=== PATIENT | male | born 1970 | race Caucasian/White ===

== ENCOUNTER 2016-11-04 13:25 | Inpatient (IN) | payer BC ==
--- NOTE | 2016-11-04 16:29 | ED ---
Abdominal Pain HPI - General Chief Complaint: Abdominal Pain Stated Complaint: Bloated, Leg Numbness Time Seen by Provider: 11/04/16 15:45 Source: patient, RN notes reviewed Mode of arrival: wheelchair - History of Present Illness Initial Comments: Patient is a 38-year-old male presents to the emergency room for evaluation of abdominal pain and bloating. Patient states he's been experiencing abdominal bloating for the past 3 days. Patient states the bloating is causing him great discomfort. Patient states bloating is pressing on his chest and he feels short of breath because it. Patient states he had an episode of bloating during [place] time then went away after a few days. Patient stated this time is not going away. Patient states he took a suppository yesterday, thinking he was constipated with no relief of symptoms. Patient states had normal bowel movement yesterday. Patient does state that he drinks about 2 mixed drinks a day for the past year. Patient states he's been taking aspirin without relief of symptoms. Patient denies any abdominal surgeries. Patient denies pain or burning during urination, trouble urinating or blood in urine. Patient denies any history of kidney stones. Patient denies any history of bowel obstructions. Patient denies history of colitis. Patient denies fevers or chills. Patient's did pull me aside and states that patient drinks more than 2 mixed drinks a day. Patient's states that his drinking has gotten out of control and has been worrying her. - Related Data Home Medications Medication Instructions Recorded Confirmed Buprenorphine HCl/Naloxone HCl 2 film SL DAILY 11/04/16 11/04/16 [Suboxone 8 mg-2 mg Sl Film] Cetirizine HCl [Zyrtec] 10 mg PO DAILY 11/04/16 11/04/16 Ibuprofen [Advil] 200 mg PO Q8HR PRN 11/04/16 11/04/16 Allergies Allergy/AdvReac Type Severity Reaction Status Date / Time No Known Allergies Allergy Verified 11/04/16 15:35 Review of Systems ROS Statement: Those systems with pertinent positive or pertinent negative responses have been documented in the HPI. ROS Other: All systems not noted in ROS Statement are negative. Past Medical History Past Medical History: No Reported History History of Any Multi-Drug Resistant Organisms: None Reported Past Surgical History: Back Surgery Additional Past Surgical History / Comment(s): OPEN HEART SURGERY A CHILD FOR A PIECE OF GLASS LODGED IN HIS HEART Past Psychological History: No Psychological Hx Reported Smoking Status: Current every day smoker Past Alcohol Use History: Daily Past Drug Use History: None Reported General Exam - General Exam Comments Initial Comments: Laying in exam room, no acute distress. Limitations: no limitations General appearance: alert, in no apparent distress Head exam: Present: atraumatic, normocephalic, normal inspection Eye exam: Present: normal appearance, PERRL, EOMI Pupils: Present: normal accommodation ENT exam: Present: normal exam Neck exam: Present: normal inspection Respiratory exam: Present: normal lung sounds bilaterally. Absent: respiratory distress Cardiovascular Exam: Present: normal rhythm, tachycardia, normal heart sounds GI/Abdominal exam: Present: distended, tenderness (Mid epigastric and left upper quadrant tenderness), guarding (Voluntary guarding on palpation), normal bowel sounds. Absent: rebound, rigid Extremities exam: Present: normal inspection Back exam: Present: normal inspection Neurological exam: Present: alert, oriented X3, CN II-XII intact Psychiatric exam: Present: normal affect, normal mood Skin exam: Present: warm, dry, intact, normal color. Absent: rash Course Vital Signs 11/04/16 11/04/16 13:27 17:53 Temperature 100 F H 98.4 F Pulse Rate 114 H 102 H Respiratory 22 18 Rate Blood Pressure 131/79 109/71 O2 Sat by Pulse 92 L 94 L Oximetry Medical Decision Making - Medical Decision Making Patient is a 46-year-old male presents emergency room for evaluation of abdominal pain and abdominal distention. Patient's states the patient has been drinking frequently over the past year. Patient noted to have elevated lipase and amylase. Case discussed with Dr. Bond. Dr. Bond discussed case with Dr. Marina who agreed to admit patient. Patient will be [facility] with [facility] protocol. Results and plan discussed with patient and his . - Lab Data Result diagrams: 11/04/16 16:26 11/04/16 16:26 Lab Results 11/04/16 11/04/16 11/04/16 Range/Units 16:26 16:26 16:26 WBC 8.3 (3.8-10.6) k/uL RBC 2.82 L (4.30-5.90) m/uL Hgb 11.0 L (13.0-17.5) gm/dL Hct 33.1 L (39.0-53.0) % MCV 117.3 H (80.0-100.0) fL MCH 38.9 H (25.0-35.0) pg MCHC 33.1 (31.0-37.0) g/dL RDW 14.8 (11.5-15.5) % Plt Count 135 L (150-450) k/uL Neutrophils % 85 % Lymphocytes % 8 % Monocytes % 5 % Eosinophils % 1 % Basophils % 0 % Neutrophils # 7.0 (1.3-7.7) k/uL Lymphocytes # 0.6 L (1.0-4.8) k/uL Monocytes # 0.5 (0-1.0) k/uL Eosinophils # 0.1 (0-0.7) k/uL Basophils # 0.0 (0-0.2) k/uL Manual Slide Review Performed Polychromasia Present Macrocytosis Marked Target Cells Present PT (9.0-12.0) sec INR (<1.1) Sodium 134 L (137-145) mmol/L Potassium 3.8 (3.5-5.1) mmol/L Chloride 94 L (98-107) mmol/L Carbon Dioxide 29 (22-30) mmol/L Anion Gap 11 mmol/L BUN 16 (9-20) mg/dL Creatinine 0.70 (0.66-1.25) mg/dL Est GFR (MDRD) Af Amer >60 (>60 ml/min/1.73 sqM) Est GFR (MDRD) Non-Af >60 (>60 ml/min/1.73 sqM) Glucose 93 (74-99) mg/dL Calcium 8.8 (8.4-10.2) mg/dL Magnesium 1.5 L (1.6-2.3) mg/dL Total Bilirubin 3.4 H (0.2-1.3) mg/dL AST 154 H (17-59) U/L ALT 65 (21-72) U/L Alkaline Phosphatase 221 H (38-126) U/L Total Protein 5.9 L (6.3-8.2) g/dL Albumin 2.8 L (3.5-5.0) g/dL Amylase 195 H (30-110) U/L Lipase 983 H (23-300) U/L Urine Color Dark Brown Urine Appearance Clear (Clear) Urine pH 6.0 (5.0-8.0) Ur Specific [place] 1.018 (1.001-1.035) Urine Protein 1+ H (Negative) Urine Glucose (UA) Negative (Negative) Urine Ketones Trace H (Negative) Urine Blood Negative (Negative) Urine Nitrate Negative (Negative) Urine Bilirubin 1+ H (Negative) Urine Urobilinogen 12.0 (<2.0) mg/dL Ur Leukocyte Esterase Negative (Negative) Urine RBC 1 (0-5) /hpf Urine WBC 3 (0-5) /hpf Ur Squamous Epith Cells <1 (0-4) /hpf Hyaline Casts 79 H (0-2) /lpf Urine Mucus Rare H (None) /hpf Serum Alcohol 13 mg/dL 11/04/16 Range/Units 16:26 WBC (3.8-10.6) k/uL RBC (4.30-5.90) m/uL Hgb (13.0-17.5) gm/dL Hct (39.0-53.0) % MCV (80.0-100.0) fL MCH (25.0-35.0) pg MCHC (31.0-37.0) g/dL RDW (11.5-15.5) % Plt Count (150-450) k/uL Neutrophils % % Lymphocytes % % Monocytes % % Eosinophils % % Basophils % % Neutrophils # (1.3-7.7) k/uL Lymphocytes # (1.0-4.8) k/uL Monocytes # (0-1.0) k/uL Eosinophils # (0-0.7) k/uL Basophils # (0-0.2) k/uL Manual Slide Review Polychromasia Macrocytosis Target Cells PT 11.7 (9.0-12.0) sec INR 1.2 (<1.1) Sodium (137-145) mmol/L Potassium (3.5-5.1) mmol/L Chloride (98-107) mmol/L Carbon Dioxide (22-30) mmol/L Anion Gap mmol/L BUN (9-20) mg/dL Creatinine (0.66-1.25) mg/dL Est GFR (MDRD) Af Amer (>60 ml/min/1.73 sqM) Est GFR (MDRD) Non-Af (>60 ml/min/1.73 sqM) Glucose (74-99) mg/dL Calcium (8.4-10.2) mg/dL Magnesium (1.6-2.3) mg/dL Total Bilirubin (0.2-1.3) mg/dL AST (17-59) U/L ALT (21-72) U/L Alkaline Phosphatase (38-126) U/L Total Protein (6.3-8.2) g/dL Albumin (3.5-5.0) g/dL Amylase (30-110) U/L Lipase (23-300) U/L Urine Color Urine Appearance (Clear) Urine pH (5.0-8.0) Ur Specific [place] (1.001-1.035) Urine Protein (Negative) Urine Glucose (UA) (Negative) Urine Ketones (Negative) Urine Blood (Negative) Urine Nitrate (Negative) Urine Bilirubin (Negative) Urine Urobilinogen (<2.0) mg/dL Ur Leukocyte Esterase (Negative) Urine RBC (0-5) /hpf Urine WBC (0-5) /hpf Ur Squamous Epith Cells (0-4) /hpf Hyaline Casts (0-2) /lpf Urine Mucus (None) /hpf Serum Alcohol mg/dL - Radiology Data Radiology results: report reviewed, image reviewed Disposition Clinical Impression: Pancreatitis Disposition: ADMITTED IP TO THIS [facility] Condition: Stable Decision Date: 11/04/16
[2016-11-04 16:37] LABS: Basophils % (A) 0 %; CHCM 34.2; Eosinophils # (A) 0.1 k/uL (0-0.7); Eosinophils % (A) 1 %; HCT 33.1 % (39.0-53.0); Luc # (Auto) 0.07; Luc % (Auto) 1; Lymphocytes # (A) 0.6 k/uL (1.0-4.8); Lymphocytes % (A) 8 %; MCH 38.9 pg (25.0-35.0); MCHC 33.1 g/dL (31.0-37.0); MCV 117.3 fL (80.0-100.0); Macrocytosis Marked; Mean Platelet Volume 9.1; Monocytes # (A) 0.5 k/uL (0-1.0); Monocytes % (A) 5 %; Neutrophils % (A) 85 %; RBC 2.82 m/uL (4.30-5.90); RDW 14.8 % (11.5-15.5); WBC 8.3 k/uL (3.8-10.6); WBC (Perox) 8.35
--- NOTE | 2016-11-04 16:46 | XR ---
EXAMINATION TYPE: XR KUB DATE OF EXAM: 11/04/2016 4:36 PM COMPARISON: NONE HISTORY: 46-year-old male abdominal distention and pain FINDINGS: No evidence for free intraperitoneal air. Some colonic and small bowel air fluid levels are noted in the upper abdomen. Prominent air within th e transverse colon. No dilated small bowel loops are seen. Paucity of distal colonic gas. No signific ant stool burden. IMPRESSION: A number of upper abdominal small bowel air-fluid levels without abnormal dilatation. There is some a ir within the colon but paucity of distal colonic gas. Overall gas pattern is nonspecific at this lynne e and could reflect an enteritis, generalized ileus, or early obstruction. Radiographic follow-up rec ommended.
[2016-11-04 16:49] LABS: Appearance,Urine Clear (Clear); Bilirubin,Urine 1+ (Negative); Glucose,Urine (UA) Negative (Negative); Ketones,Urine Trace (Negative); Leukocyte Esterase,Urine Negative (Negative); Mucus,Urine Rare /hpf; Nitrite,Urine Negative (Negative); Particle Count 7221; Protein,Urine 1+ (Negative); RBC,Urine 1 /hpf (0-5); Specific Gravity,Urine 1.018 (1.001-1.035); Squamous Epithelial Cell,Urine <1 /hpf (0-4); UA Billing (MACRO vs. MICRO) MICRO; WBC,Urine 3 /hpf (0-5)
[2016-11-04 16:54] LABS: ALT 65 U/L (21-72); AST 154 U/L (17-59); Alcohol 13 mg/dL; Alkaline Phosphatase 221 U/L (38-126); Amylase 195 U/L (30-110); Anion Gap 11 mmol/L; Blood Urea Nitrogen 16 mg/dL (9-20); Calcium 8.8 mg/dL (8.4-10.2); Carbon Dioxide 29 mmol/L (22-30); Chloride 94 mmol/L (98-107); Glucose 93 mg/dL (74-99); Magnesium 1.5 mg/dL (1.6-2.3); Non-African American GFR(MDRD) >60 (>60 ml/min/1.73 sqM); Potassium 3.8 mmol/L (3.5-5.1); Sodium 134 mmol/L (137-145); Total Bilirubin 3.4 mg/dL (0.2-1.3); Total Protein 5.9 g/dL (6.3-8.2)
[2016-11-04 17:14] LABS: Manual Review Performed; Polychromasia Present
[2016-11-04 17:15] LABS: Target Cells Present
[2016-11-04] MEDS ORDERED: NALOXONE 0.4 MG/ML 1 ML VIAL IV PRN (17:40)
[2016-11-04] MEDS ORDERED: ONDANSETRON 4 MG/2 ML VIAL IVP PRN (17:40)
[2016-11-04] MEDS ORDERED: LORazepam 2 MG/ML SYRINGE IV PRN ×2 (17:44)
[2016-11-04] MEDS ORDERED: THIAMINE 100 MG/ML 2 ML VIAL IM STA (17:44)
[2016-11-04] MEDS ORDERED: SODIUM CHLORIDE 0.9% 1,000 ML IV SCH (17:45)
[2016-11-04] MEDS ORDERED: ACETAMINOPHEN IV (For NPO) 1,000 MG in EMPTY BAG 1 BAG IVPB STA (17:50)
[2016-11-04 19:01] VITALS: BMI 29.0
[2016-11-04] MEDS ORDERED: IBUPROFEN 200 MG TAB PO PRN (19:18)
[2016-11-04] MEDS: NICOTINE 21MG/24HR PATCH TRANSDERM SCH (19:49)
[2016-11-04 20:05] LABS: INR 1.2 (<1.1); Prothrombin Time 11.7 sec (9.0-12.0)
--- NOTE | 2016-11-04 20:25 | XR ---
EXAMINATION TYPE: XR chest 2V DATE OF EXAM: 11/04/2016 8:07 PM COMPARISON: NONE HISTORY: Short of breath TECHNIQUE: Frontal and lateral views of the chest are obtained. FINDINGS: There is mild patchy linear density at the right lung base. The other lung hameed are kristy r. Heart and mediastinum are normal. There are no hilar masses. There is slight blunting of the right posterior costophrenic angle. IMPRESSION: Patchy atelectasis at the right lung base. Small pleural effusions. No heart failure.
[2016-11-04 21:00] LABS: Bilirubin, Delta 1.9 mg/dL (0.0-0.2); Total Bilirubin 3.4 mg/dL (0.2-1.3); Total Protein 5.9 g/dL (6.3-8.2)
[2016-11-04] MEDS: traMADol 50 MG TAB PO SCH (21:09)
[2016-11-04] MEDS: DOCUSATE 100 MG CAP PO SCH (21:09)
[2016-11-04] MEDS: SODIUM CHLORIDE 0.9% 1,000 ML IV SCH (21:11)
[2016-11-05] MEDS ORDERED: BUPRENORPHINE HCL SL SCH (09:00)
[2016-11-05] MEDS ORDERED: ACETAMINOPHEN IV (For NPO) 1,000 MG in EMPTY BAG 1 BAG IVPB SCH (09:00)
[2016-11-05] MEDS ORDERED: NALOXONE HCL SL SCH (09:00)
[2016-11-05] MEDS: DOCUSATE 100 MG CAP PO SCH ×2 (09:08→20:15)
[2016-11-05] MEDS: traMADol 50 MG TAB PO SCH (09:09)
[2016-11-05] MEDS: NICOTINE 21MG/24HR PATCH TRANSDERM SCH (09:09)
[2016-11-05] MEDS: LORATADINE 10 MG TAB PO SCH (09:09)
[2016-11-05] MEDS: PANTOPRAZOLE 40 MG TABLET PO SCH (09:09)
[2016-11-05] MEDS: SODIUM CHLORIDE 0.9% 1,000 ML IV SCH (09:09)
--- NOTE | 2016-11-05 09:25 | US ---
EXAMINATION TYPE: US abdomen limited DATE OF EXAM: 11/05/2016 7:42 AM COMPARISON: NONE CLINICAL HISTORY: poss. Paracentesis marking. ABd distention TECHNOLOGIST IMPRESSION: Moderate amount of free fluid seen within all four quadrants Limited abdomen ultrasound shows ascites which is moderate. IMPRESSION: Moderate ascites
[2016-11-05 09:30] LABS: Basophils % (A) 0 %; CH 39.6; CHCM 32.9; Eosinophils % (A) 0 %; HCT 32.5 % (39.0-53.0); HDW 1.76; HGB 10.3 gm/dL (13.0-17.5); Luc # (Auto) 0.07; Luc % (Auto) 1; Lymphocytes # (A) 0.4 k/uL (1.0-4.8); Lymphocytes % (A) 5 %; MCH 38.2 pg (25.0-35.0); MCHC 31.7 g/dL (31.0-37.0); MCV 120.7 fL (80.0-100.0); Macrocytosis Marked; Mean Platelet Volume 9.1; Monocytes # (A) 0.4 k/uL (0-1.0); Monocytes % (A) 4 %; Neutrophils # (A) 8.5 k/uL (1.3-7.7); Neutrophils % (A) 91 %; RBC 2.69 m/uL (4.30-5.90); RDW 15.3 % (11.5-15.5); WBC 9.4 k/uL (3.8-10.6); WBC (Perox) 10.02
--- NOTE | 2016-11-05 09:34 | P.CONS ---
History of Present Illness - Reason for Consult Consult date: 11/05/16 ascites pancreatitis Requesting physician: Lv Marina - History of Present Illness 46-year-old male admitted with abdominal pain bloatedness last month but exacerbated over the last days with elevated liver and pancreatic enzymes. Drinks alcohol on a daily basis x 18 months. Denies hematemesis, hematochezia, melena, fever, or chills. Urine more dark over the last few days no changes in the color of his stool. No history of hepatitis or pancreatitis. White count 8.3. Hemoglobin 11.0. MCV 117. Platelet 135. INR 1.2. BUN 16. Creatinine 0.7. Total bilirubin 3.4. Unconjugated 1.3. Conjugated 0.2. AST 154. ALT 70. Alk phos 211. Lipase 93. Amylase 195. Serum alcohol 13. Abdomen ultrasound pending at time of dictation. Review of Systems Constitutional: Denies fever, chills, sweats, weight gain, or loss. HEENT: Negative for migraines, blurred vision or loss, earaches, drainage, tinnitus, oral mucosal lesions, dysphagia, or odynophagia. Cardiac: Open-heart surgery as a child secondary to trauma Negative for chest pain, arrhythmias, or palpitation. Respiratory: Nicotine cigarette dependency. Negative for shortness of breath, hemoptysis, cough, or sputum production. Gastrointestinal: See HPI for pertinent findings. Genitourinary: Negative for hematuria, urgency, frequency, polyuria, dysuria, or penile discharge. Musculoskeletal: Negative for muscle aches, swelling, arthritis, and arthralgias. Neurologic: Negative for stroke or TIA. Endocrine: Negative for thyroid problems. Skin: Negative for rash or itching. Psychiatric: Negative history for depression and anxiety All systems: negative (See HPI) Past Medical History Past Medical History: No Reported History History of Any Multi-Drug Resistant Organisms: None Reported Past Surgical History: Back Surgery Additional Past Surgical History / Comment(s): OPEN HEART SURGERY A CHILD FOR A PIECE OF GLASS LODGED IN HIS HEART Past Psychological History: No Psychological Hx Reported Smoking Status: Current every day smoker Past Alcohol Use History: Daily Past Drug Use History: None Reported Medications and Allergies Home Medications Medication Instructions Recorded Confirmed Type Buprenorphine HCl/Naloxone HCl 2 film SL DAILY 11/04/16 11/04/16 History [Suboxone 8 mg-2 mg Sl Film] Cetirizine HCl [Zyrtec] 10 mg PO DAILY 11/04/16 11/04/16 History Ibuprofen [Advil] 200 mg PO Q8HR PRN 11/04/16 11/04/16 History Allergies Allergy/AdvReac Type Severity Reaction Status Date / Time No Known Allergies Allergy Verified 11/04/16 15:35 Physical Exam Vitals: Vital Signs Temp Pulse Resp BP Pulse Ox 11/05/16 07:00 97.9 F 84 17 93/68 97 11/04/16 23:00 97.8 F 91 18 98/68 91 L 11/04/16 19:43 92 19 11/04/16 18:42 99.2 F 92 19 127/83 94 L Intake and Output 11/04/16 11/05/16 11/05/16 22:59 06:59 14:59 Intake Total 0 Output Total 200 200 Balance -200 -200 Intake: Oral 0 Output: Urine 200 200 Other: Voiding Method Urinal Weight 111.13 kg General appearance: The patient is alert, oriented, in no acute distress. Jaundice. HET: Head is normocephalic and atraumatic. Pupils are equal and reactive. Scleral icterus. Oropharynx is clear without lesions. Neck: Supple without lymphadenopathy. Trachea midline. Heart: S1 S2. Regular rate and rhythm. Lungs: No crackles or wheezes are heard. Abdomen: Soft, distended with ascites tense, with bowel sounds. No peritoneal signs. No palpable organomegaly or masses. Extremities: Normal skin color and turgor. No cyanosis, rash, ulceration, clubbing, or edema. Radial and pedal pulses are 2/4 bilaterally. Neurological: No focal deficits. Strength and sensation are grossly intact. Results CBC & Chem 7: 11/06/16 08:52 11/06/16 08:52 US - abdomen: pending Assessment and Plan (1) Acute alcoholic pancreatitis Status: Acute (2) Ascites Status: Acute (3) Thrombocytopenia Status: Acute (4) Macrocytosis Status: Acute (5) Anemia Narrative/Plan: Without overt bleeding Status: Acute (6) Jaundice due to hepatitis Status: Acute Plan: 1. Alcohol abstinence advised. Repeat liver chemistries, amylase, lipase. 2. Hepatitis panel. AFP level. Ammonia. We'll review ultrasound. We'll proceed with therapeutic diagnostic paracentesis for evaluation of portal hypertension. 3. Will follow with you. Clear liquids and advance to Low-salt diet as tolerated. Thank you for this kind referral and the opportunity to participate in the care of your patient. This consultation was discussed with Dr. Boo. The impression and plan of care have been directed as dictated.
[2016-11-05 09:40] LABS: Blood Urea Nitrogen 17 mg/dL (9-20); Calcium 8.2 mg/dL (8.4-10.2); Carbon Dioxide 30 mmol/L (22-30); Non-African American GFR(MDRD) >60 (>60 ml/min/1.73 sqM); Potassium 3.6 mmol/L (3.5-5.1); Sodium 133 mmol/L (137-145)
[2016-11-05 09:55] LABS: Anion Gap 10 mmol/L; Chloride 93 mmol/L (98-107); Glucose 91 mg/dL (74-99)
[2016-11-05 09:57] LABS: ALT 85 U/L (21-72); Blood Urea Nitrogen 17 mg/dL (9-20); Carbon Dioxide 31 mmol/L (22-30); Chloride 94 mmol/L (98-107); Non-African American GFR(MDRD) >60 (>60 ml/min/1.73 sqM); Potassium 3.8 mmol/L (3.5-5.1); Total Bilirubin 3.6 mg/dL (0.2-1.3)
[2016-11-05 10:01] LABS: Hepatitis B Surface Ag Index 0.07
[2016-11-05 10:07] LABS: Hepatitis B Core IgM Index 0.03
[2016-11-05 10:19] LABS: Hepatitis C Virus IgG Index 0.14
[2016-11-05 10:33] LABS: AST 253 U/L (17-59); Alkaline Phosphatase 199 U/L (38-126); Amylase 119 U/L (30-110); Anion Gap 8 mmol/L; Calcium 8.2 mg/dL (8.4-10.2); Glucose 93 mg/dL (74-99); Sodium 133 mmol/L (137-145); Total Protein 5.3 g/dL (6.3-8.2)
[2016-11-05 10:37] LABS: Hepatitis C Virus IgG Ab Negative (Negative)
[2016-11-05 10:49] LABS: Manual Review Performed
[2016-11-05 10:50] LABS: Toxic Granulation Present
[2016-11-05 12:32] LABS: INR 1.4 (<1.1); Prothrombin Time 13.3 sec (9.0-12.0)
--- NOTE | 2016-11-05 14:03 | US ---
EXAMINATION TYPE: US paracentesis abd w/image DATE OF EXAM: 11/05/2016 1:56 PM CLINICAL HISTORY: Ascites The procedure was discussed with the patient. The risks, complications, benefits, and alternatives we re discussed and any questions were answered. Informed consent was obtained. The patient was placed s upine on the ultrasound table and prepped and draped in the usual sterile fashion. All elements of maximal barrier technique were utilized. Under ultrasound guidance, access into the right lower quadrant was obtained, via the paracentesis catheter system and direct ultrasound guidanc e. Approximately 8.1 liters of straw-colored fluid was removed. The patient was stable throughout the pr ocedure and remained stable upon discharge from Department of Radiology. Sample sent to pathology. IMPRESSION: Successful therapeutic and diagnostic paracentesis under ultrasound guidance.
[2016-11-05] MEDS: THIAMINE 100 MG TAB PO SCH ×2 (14:29→16:49)
[2016-11-05] MEDS: FOLIC ACID 1 MG TAB PO SCH (14:30)
[2016-11-05] MEDS: LORazepam 2 MG/ML SYRINGE IV PRN (14:30)
[2016-11-05] MEDS ORDERED: MORPHINE SULFATE 4 MG/ML SYRINGE IVP PRN (15:00)
[2016-11-05 16:50] LABS: RBC, Body Fluid 25 /uL
[2016-11-05] MEDS: SUBOXONE FILM SUBLINGUAL SCH (17:15)
--- NOTE | 2016-11-05 22:58 | HP ---
Patient is a 46-year-old who came in with abdominal ascites and patient developed increasing abdominal bloating and patient was found to have ascites and removed about 6.5 L. Patient was also complaining of epigastric abdominal pain. Patient has minimally elevated lipase of 900. Patient was on treatment for pancreatitis. Patient was able to tolerate diet today. Patient was complaining of nausea, vomiting when he came in. Patient's epigastric abdominal pain improved. I mostly believe the patient has an alcoholic gastritis. Patient does drink alcohol on a daily basis, about 2 shots of whiskey along with 3 beers a day. Patient denied any melena, hematochezia. Patient's abdominal pain is not consistent with peritonitis and paracentesis labs are still pending at this point of time. Patient does have elevated MCV and acute alcoholic hepatitis consistent with elevated AST and ALT with AST and ALT ratio being at least 1. REVIEW OF SYSTEMS: CONSTITUTIONAL: No fever, no malaise, no fatigue. HEENT: No recent visual problems or hearing problems. Denied any sore throat. CARDIOVASCULAR: No chest pain, orthopnea, PND, no palpitations, no syncope. PULMONARY: No shortness of breath, no cough, no hemoptysis. GASTROINTESTINAL: As described in HPI. NEUROLOGICAL: No headaches, no weakness, no numbness. HEMATOLOGICAL: Denies any bleeding or petechiae. GENITOURINARY: Denies any burning micturition, frequency, or urgency. MUSCULOSKELETAL/RHEUMATOLOGICAL: Denies any joint pain, swelling, or any muscle pain. ENDOCRINE: Denies any polyuria or polydipsia. The rest of the 14 point review of systems is negative. PAST MEDICAL HISTORY: Patient never saw a doctor, did not report any previous history except for back surgery and chronic low back pain. Patient does smoke a pack per day. Alcohol abuse as mentioned above. Denied any drug abuse. Hepatitis panel is essentially negative. FAMILY HISTORY: Denied any family history of hypertension, diabetes mellitus. Home medications include: 1. ( ). 2. Naloxone. 3. Cetirizine and 4. Ibuprofen. ALLERGIES: No known drug allergies. PHYSICAL EXAMINATION: VITAL SIGNS: Temperature 97.3, pulse of 76, respiratory rate of 14, blood pressure is 193/68, saturating at 97% on room air. GENERAL: The patient is alert and oriented x3, not in any acute distress. Well developed, well nourished. HEENT: Pupils are round and equally reacting to light. EOMI. No scleral icterus. No conjunctival pallor. Normocephalic, atraumatic. No pharyngeal erythema. No thyromegaly. CARDIOVASCULAR: S1 and S2 present. No murmurs, rubs, or gallops. PULMONARY: Chest is clear to auscultation, no wheezing or crackles. ABDOMEN: Patient does have caput medusae consistent with cirrhosis. I did not see any significant palmar erythema or spider nevi. Evaluated patient after paracentesis with 6.5 L of fluid removal. Patient still has shifting dullness. No fluid thrill was appreciated. ( ). No abdominal tenderness at this point of time. MUSCULOSKELETAL: No joint swelling or deformity. EXTREMITIES: No cyanosis, clubbing, or pedal edema. NEUROLOGICAL: Gross neurological examination did not reveal any focal deficits. SKIN: No rashes. LABORATORY DATA: CBC and comprehensive metabolic profile are significant for anemia secondary to alcohol use and bone marrow suppression. Hemoglobin of 10.9 and MCV is elevated to 120.7 secondary to cirrhosis as well as alcohol abuse. INR is 1.4. Sodium is 133. AST is 253 now, ALT is 85, because of which IV Tylenol will be discontinued. Alkaline phosphatase is 199. Lipase is 389 now. When he came in, it was 983. UA: 1+ bilirubin. No other significant abnormality was appreciated. Ascitic fluid labs are pending. Hepatitis panel is negative. Serum alcohol level was 13. abdominal ultrasound was reviewed and other imaging data was reviewed. ASSESSMENT AND PLAN: 1. Ascites secondary to alcoholic cirrhosis. Patient probable has alcoholic cirrhosis and patient had a therapeutic paracentesis. My suspicion is low for peritonitis. 2. Possibility of alcoholic pancreatitis. Patient mostly has alcoholic gastritis and it caused ( ) elevation of lipase, anyway. Patient is on Protonix at this point of time. 3. Pancytopenia along with thrombocytopenia secondary to splenic sequestration and elevated MCV and anemia secondary to bone marrow suppression from chronic alcohol abuse. 4. Acute alcoholic hepatitis. Tylenol IV was discontinued. Patient cannot take tramadol. Either, as there is a concern for alcohol withdrawal. 5. Alcohol abuse. 6. Alcohol withdrawal. 7. Hyponatremia. Appears to have hypovolemic hyponatremia from cirrhosis and ascites. 8. Nicotine abuse. 9. Extensive counseling was provided regarding alcohol abuse. 10. Ammonia is still pending and alpha-fetoprotein level. 11. Chronic low back pain. We can only use Suboxone at this point of time. As patient is on Suboxone, I cannot use any other opiates and patient cannot use NSAIDs because of alcoholic gastritis and we cannot use tramadol because of the concern for alcohol withdrawal seizures.
[2016-11-06] MEDS: LORazepam 2 MG/ML SYRINGE IV PRN (01:16)
[2016-11-06 01:22] VITALS: TEMP 97.8
[2016-11-06] MEDS: PANTOPRAZOLE 40 MG TABLET PO SCH (07:47)
[2016-11-06] MEDS: LORATADINE 10 MG TAB PO SCH (07:47)
[2016-11-06] MEDS: DOCUSATE 100 MG CAP PO SCH (07:47)
[2016-11-06] MEDS: NICOTINE 21MG/24HR PATCH TRANSDERM SCH (07:47)
[2016-11-06] MEDS: SUBOXONE FILM SUBLINGUAL SCH (08:42)
[2016-11-06 09:11] LABS: CH 39.4; CHCM 32.6; HCT 33.3 % (39.0-53.0); HGB 10.8 gm/dL (13.0-17.5); MCH 39.3 pg (25.0-35.0); MCHC 32.4 g/dL (31.0-37.0); MCV 121.4 fL (80.0-100.0); Macrocytosis Marked; Mean Platelet Volume 8.6; RBC 2.74 m/uL (4.30-5.90); RDW 15.3 % (11.5-15.5); WBC 6.7 k/uL (3.8-10.6)
[2016-11-06 09:31] LABS: ALT 74 U/L (21-72); AST 159 U/L (17-59); Alkaline Phosphatase 166 U/L (38-126); Anion Gap 8 mmol/L; Blood Urea Nitrogen 17 mg/dL (9-20); Carbon Dioxide 30 mmol/L (22-30); Chloride 96 mmol/L (98-107); Glucose 96 mg/dL (74-99); Non-African American GFR(MDRD) >60 (>60 ml/min/1.73 sqM); Potassium 3.2 mmol/L (3.5-5.1); Sodium 134 mmol/L (137-145); Total Bilirubin 2.8 mg/dL (0.2-1.3); Total Protein 4.9 g/dL (6.3-8.2)
[2016-11-06 09:41] VITALS: BP 118/80; PULSE 102; RESP 19
--- NOTE | 2016-11-06 10:08 | P.PN ---
Subjective Principal diagnosis: Alcohol hepatitis pancreatitis new-onset ascites 46-year-old male with a history of alcoholism admitted with acute alcohol hepatitis and new onset of ascites. Status post paracentesis with a 0.1 L removal. Feels better. Afebrile. Liver enzymes improving. Pancreatic enzymes improved yesterday. Tolerating clear liquids. Objective - Vital Signs Vital signs: Vital Signs Temp 97.8 F 11/06/16 09:39 Pulse 102 H 11/06/16 09:39 Resp 19 11/06/16 09:39 BP 118/80 11/06/16 09:39 Pulse Ox 94 L 11/06/16 09:39 Intake & Output 11/05/16 11/06/16 11/06/16 18:59 06:59 18:59 Other: Voiding Method Urinal Toilet Toilet # Voids 1 1 - Exam General appearance: The patient is alert, oriented, in no acute distress. Jaundice. HET: Head is normocephalic and atraumatic. Pupils are equal and reactive. Scleral icterus. Oropharynx is clear without lesions. Neck: Supple without lymphadenopathy. Trachea midline. Heart: S1 S2. Regular rate and rhythm. Lungs: No crackles or wheezes are heard. Abdomen: Soft, distended with mild ascites, with bowel sounds. No peritoneal signs. No palpable organomegaly or masses. Extremities: Normal skin color and turgor. No cyanosis, rash, ulceration, clubbing, or edema. Radial and pedal pulses are 2/4 bilaterally. Neurological: No focal deficits. Strength and sensation are grossly intact. - Labs CBC & Chem 7: 11/06/16 08:52 11/06/16 08:52 Labs: Abnormal Lab Results - Last 24 Hours (Table) 11/05/16 11/05/16 11/05/16 Range/Units 08:45 08:45 09:31 RBC 2.69 L (4.30-5.90) m/uL Hgb 10.3 L (13.0-17.5) gm/dL Hct 32.5 L (39.0-53.0) % MCV 120.7 H (80.0-100.0) fL MCH 38.2 H (25.0-35.0) pg Plt Count 111 L (150-450) k/uL Neutrophils # 8.5 H (1.3-7.7) k/uL Lymphocytes # 0.4 L (1.0-4.8) k/uL PT (9.0-12.0) sec Sodium 133 L 133 L (137-145) mmol/L Potassium (3.5-5.1) mmol/L Chloride 93 L 94 L (98-107) mmol/L Carbon Dioxide 31 H (22-30) mmol/L Calcium 8.2 L 8.2 L (8.4-10.2) mg/dL Total Bilirubin 3.6 H (0.2-1.3) mg/dL AST 253 H (17-59) U/L ALT 85 H (21-72) U/L Alkaline Phosphatase 199 H (38-126) U/L Total Protein 5.3 L (6.3-8.2) g/dL Albumin 2.4 L (3.5-5.0) g/dL Amylase 119 H (30-110) U/L Lipase 389 H (23-300) U/L 11/05/16 11/06/16 11/06/16 Range/Units 11:39 08:52 08:52 RBC 2.74 L (4.30-5.90) m/uL Hgb 10.8 L (13.0-17.5) gm/dL Hct 33.3 L (39.0-53.0) % MCV 121.4 H (80.0-100.0) fL MCH 39.3 H (25.0-35.0) pg Plt Count 110 L (150-450) k/uL Neutrophils # (1.3-7.7) k/uL Lymphocytes # (1.0-4.8) k/uL PT 13.3 H (9.0-12.0) sec Sodium 134 L (137-145) mmol/L Potassium 3.2 L (3.5-5.1) mmol/L Chloride 96 L (98-107) mmol/L Carbon Dioxide (22-30) mmol/L Calcium 8.0 L (8.4-10.2) mg/dL Total Bilirubin 2.8 H (0.2-1.3) mg/dL AST 159 H (17-59) U/L ALT 74 H (21-72) U/L Alkaline Phosphatase 166 H (38-126) U/L Total Protein 4.9 L (6.3-8.2) g/dL Albumin 2.2 L (3.5-5.0) g/dL Amylase (30-110) U/L Lipase (23-300) U/L Microbiology - Last 24 Hours (Table) 11/05/16 12:59 Gram Stain - Preliminary Ascites Fluid Body Fluid Culture - Preliminary 11/05/16 12:59 Anaerobic Culture - Preliminary Ascites Fluid Assessment and Plan (1) Acute alcoholic pancreatitis Status: Acute (2) Ascites Status: Acute (3) Thrombocytopenia Status: Acute (4) Macrocytosis Status: Acute (5) Anemia Narrative/Plan: Without overt bleeding Status: Acute (6) Jaundice due to hepatitis Status: Acute Plan: 1. Alcohol abstinence advised. 2. Hepatitis panel and Ammonia level reviewed. AFP pending. Start diuretics Lasix 40 mg daily. Aldactone 100 mg daily. 3. Will follow with you. Assessment and plan a care discussed with Dr. Boo.
[2016-11-06] MEDS ORDERED: SPIRONOLACTONE 25 MG TAB PO SCH (10:15)
[2016-11-06] MEDS ORDERED: Potassium Replacement Protocol 1 EACH MISC MISCELLANE PRN (10:47)
[2016-11-06] MEDS ORDERED: FUROSEMIDE 40 MG TAB PO SCH (11:00)
[2016-11-06] MEDS: THIAMINE 100 MG TAB PO SCH (11:08)
[2016-11-06] MEDS: FOLIC ACID 1 MG TAB PO SCH (11:08)
--- NOTE | 2016-11-06 11:30 | CDI ---
In responding to this query, please exercise your independent professional judgment. The [facility] Coding Staff and Clinical Documentation Specialists appreciate your assistance in clarifying documentation, maintaining compliance with coding guidelines, accurately documenting patients condition and capturing severity of illness. The fact that a question is asked does not imply that any particular answer is desired or expected. Communication forms are a method of clarifying documentation and are not made part of the Legal Health Record. Thank you in advance for your clarification. Last Revision, December 2015 Nicolas Winston [address] [facility] [place] [address] Documentation Clarification Form Date: 11/06/2016 11:06:00 AM From: Robert Pike, RN, BSN, CDI Phone: Admit Date: 11/04/2016 6:08:00 PM Patient Name: Christian Gayle Visit Number: [id number] Dr. Lv Marina: Chronic low back pain is documented in the H&P. Patient history/risk factors: 46 yo male with history of chronic low back pain secondary to back surgery. He presents on Suboxone. He has a history of ETOH abuse and is a pack a day smoker Clinical Indicators: Per H&P documentation, "as patient is on Suboxone, I cannot use any other opiates and patient cannot use NSAIDS because of alcoholic gastritis, cannot use Tramadol because of the concern for alcohol WD seizures. Medication: continuation of Suboxone In order to capture the severity of condition, if possible and in your professional opinion, please clarify the following: Abused Substance and specify type of known: Opiods/narcotics Nicotine Alcohol Other, please specify Unable to determine Type of Substance Disorder: Abuse Dependence Use Unknown Please document in your progress notes and discharge summary in order to capture severity of illness and risk of mortality. Include clinical findings that support your diagnosis. FYI: Press F11 to launch patient chart Place X here if this finding has no clinical significance, is not applicable or if you are not able to provide any additional documentation. MTDD
[2016-11-06] MEDS ORDERED: Magnesium Replacement Protocol 1 EACH MISC MISCELLANE PRN (11:35)
[2016-11-06] MEDS: POTASSIUM CHLORIDE ER 20 MEQ TAB.ER PO SCH ×3 (11:56→14:10)
[2016-11-06] MEDS: MAGNESIUM SULFATE-D5W PMX 1 GM in DEXTROSE/WATER 1 100ML.BAG IVPB SCH ×3 (11:56→14:10)
--- NOTE | 2016-11-06 15:42 | P.DS ---
Providers Date of admission: 11/04/16 18:08 Expected date of discharge: 11/06/16 Attending physician: Lv Alfred. Consults: 11/04/16 19:14 Consult Physician Urgent Consulting Provider: David Boo Consult Reason/Comments: ascites? Do you want consulting provider notified?: Yes Primary care physician: Alexander Randhawa [facility] Course: Final Diagnoses: 1. [New-onset ascites secondary to alcoholic cirrhosis, status post therapeutic , diagnostic paracentesis]. 2. [Acute alcoholic pancreatitis, mostly presenting with alcoholic gastritis]. 3. [Acute Pancytopenia with thrombocytopenia secondary to splenic sequestration, elevated MCV, anemia secondary to bone marrow suppression related to chronic alcohol abuse]. 4. [Acute alcoholic hepatitis]. 5. [Alcohol abuse]. 6. [Alcohol withdrawal]. 7. [Hyponatremia, hypovolemic secondary to cirrhosis and ascites 8. Nicotine abuse 9. Chronic low back pain in a patient on Suboxone]. Type of substance disorder , type of abused substance unknown. Hospital course : This is a 46-year-old gentleman admitted with abdominal pain, new onset ascites, acute alcoholic hepatitis and multiple other medical issues in a patient with daily alcohol abuse. Minimally elevated lipase of 900, elevated MCV, elevated AST, ALT on admission, improved. Abdominal ultrasound reported moderate ascites. Evaluated by GI and underwent paracentesis with 8.1 L of straw-colored fluid removed. Cytology pending. Lasix and Aldactone initiated. Cleared by GI for discharge. Patient being discharged home in a stable condition with guarded prognosis. Patient Condition at Discharge: Stable Plan - Discharge Summary New Discharge Prescriptions: Folic Acid 1 mg PO DAILY@1200 #30 tab Furosemide [Lasix] 40 mg PO DAILY #30 tablet Nicotine 21Mg/24Hr Patch [Habitrol] 1 patch TRANSDERM DAILY #30 patch Pantoprazole [Protonix] 40 mg PO AC-BRKFST #30 tablet. Spironolactone [Aldactone] 100 mg PO DAILY #30 tab Thiamine [Vitamin B-1] 100 mg PO DAILY #30 tab Discharge Medication List Buprenorphine HCl/Naloxone HCl [Suboxone 8 mg-2 mg Sl Film] 2 film SL DAILY [History] Cetirizine HCl [Zyrtec] 10 mg PO DAILY 11/04/16 [History] Folic Acid 1 mg PO DAILY@1200 #30 tab 11/06/16 [Rx] Furosemide [Lasix] 40 mg PO DAILY #30 tablet 11/06/16 [Rx] Nicotine 21Mg/24Hr Patch [Habitrol] 1 patch TRANSDERM DAILY #30 patch 11/06/16 [ Rx] Pantoprazole [Protonix] 40 mg PO AC-BRKFST #30 tablet. 11/06/16 [Rx] Spironolactone [Aldactone] 100 mg PO DAILY #30 tab 11/06/16 [Rx] Thiamine [Vitamin B-1] 100 mg PO DAILY #30 tab 11/06/16 [Rx] Follow up Appointment(s)/Referral(s): David Boo MD [STAFF PHYSICIAN] - 2 Weeks Alexander Randhawa MD [Primary Care Provider] - 3 Days Ambulatory/Diagnostic Orders: Complete Blood Count w/diff [LAB.AMB] Time Frame: 3 Days, Location: Determined By Patient Patient Instructions/Handouts: How to Stop Smoking (DC), Abuse of Alcohol (DC) Activity/Diet/Wound Care/Special Instructions: Diet low-sodium, 2000 mg per day, low fat Activity: Limited until follow up No EtOH, no smoking Final ascites culture results to Dr. Boo and PCP.
== END 2016-11-06 16:20 | disposition home or self-care (01) | DRG 432 ==
LOC: EC 13:25 → 4MS4W 18:08
PROVIDERS: ADMIT Internal Medicine; ATTEND Internal Medicine
PROC: 0W9G3ZX Drainage of Peritoneal Cavity, Percutaneous Approach, Diagnostic (ICD-10-PCS; principal; 2016-11-05)
DX: K70.31 Alcoholic cirrhosis of liver with ascites (principal); K85.20 Alcohol induced acute pancreatitis without necrosis or infection; D61.818 Other pancytopenia; E87.1 Hypo-osmolality and hyponatremia; F10.239 Alcohol dependence with withdrawal, unspecified; E86.1 Hypovolemia; D69.59 Other secondary thrombocytopenia; D75.89 Other specified diseases of blood and blood-forming organs; F17.200 Nicotine dependence, unspecified, uncomplicated; G89.29 Other chronic pain; K29.20 Alcoholic gastritis without bleeding; K70.10 Alcoholic hepatitis without ascites; M54.5 Low back pain
CPT/HCPCS: 36415; 49083; 71020; 74000; 76705; 80048; 80053; 80074; 80076; 80320; 81001; 82042; 82105; 82140; 82150; 82945; 83690; 83735; 84157; 85025; 85027; 85610; 87070; 87075; 87205; 88108; 88305; 89050; 96361; 96372; 96374; 99285

== ENCOUNTER 2016-11-28 08:44 | Day surgery (SDC) | payer BC ==
[2016-11-28 09:04] VITALS: RESP 16; TEMP 98.4
[2016-11-28] MEDS ORDERED: SODIUM BICARB 4% 5 ML VIAL (0.48 MEQ/ML) MISCELLANE PRN (09:06)
[2016-11-28 09:35] LABS: Mean Platelet Volume 8.8
[2016-11-28 09:46] LABS: INR 1.2 (<1.1); Prothrombin Time 11.9 sec (9.0-12.0)
[2016-11-28] MEDS: ALBUMIN HUMAN 25% 50 ML in EMPTY BAG 1 BAG IVPB SCH ×3 (11:07→11:31)
[2016-11-28] MEDS ORDERED: ALBUMIN HUMAN 25% 50 ML in EMPTY BAG 1 BAG IVPB ONE (11:30)
--- NOTE | 2016-11-28 12:18 | US ---
EXAMINATION TYPE: US paracentesis abd w/image DATE OF EXAM: 11/28/2016 12:15 PM CLINICAL HISTORY: Ascites The procedure was discussed with the patient. The risks, complications, benefits, and alternatives we re discussed and any questions were answered. Informed consent was obtained. The patient was placed s upine on the ultrasound table and prepped and draped in the usual sterile fashion. All elements of maximal barrier technique were utilized. Under ultrasound guidance, access into the right lower quadrant was obtained, via the paracentesis catheter system and direct ultrasound guidanc e. Approximately 10.5 liters of straw-colored fluid was removed. The patient was stable throughout the p rocedure and remained stable upon discharge from Department of Radiology. IMPRESSION: Successful therapeutic paracentesis under ultrasound guidance.
[2016-11-28 12:51] VITALS: BP 113/74; PULSE 86
== END 2016-11-28 12:10 | disposition home or self-care (01) ==
LOC: RADPROMAIN 08:44
DX: K70.31 Alcoholic cirrhosis of liver with ascites (principal)
CPT/HCPCS: 82565; 85049; 85610; 96365; 49083; P9047

== ENCOUNTER 2016-12-04 09:47 | Day surgery (SDC) | payer BC ==
[2016-12-04 10:48] LABS: Mean Platelet Volume 8.2
[2016-12-04 10:50] VITALS: TEMP 97.5
[2016-12-04 10:56] LABS: Non-African American GFR(MDRD) 50 (>60 ml/min/1.73 sqM)
[2016-12-04 11:19] LABS: INR 1.1 (<1.1); Prothrombin Time 11.5 sec (9.0-12.0)
[2016-12-04] MEDS: ALBUMIN HUMAN 25% 50 ML in EMPTY BAG 1 BAG IVPB SCH ×4 (12:22→13:38)
[2016-12-04 13:40] VITALS: RESP 16
--- NOTE | 2016-12-04 15:27 | US ---
EXAMINATION TYPE: US paracentesis abd w/image DATE OF EXAM: 12/04/2016 3:09 PM COMPARISON: NONE HISTORY: Ascites. PROCEDURE: Maximal barrier technique was utilized. The skin overlying a suitable pocket of fluid was localized with ultrasound and the overlying skin was prepped and draped. Ultrasound was utilized with sterile technique. Lidocaine was used for local anesthesia and a skin jacquie made with a scalpel. Catheter was advanced under direct ultrasound guidance into a suitable pocket of fluid and approximately 8.5 liter s of serous fluid were removed. Catheter was withdrawn and hemostasis achieved. There is no immedia te complication; the patient is discharged in stable condition. IMPRESSION: STATUS POST ULTRASOUND GUIDED PARACENTESIS FOR PALLIATION OF ASCITES. THIS PROCEDURE WA S PERFORMED BY THE UNDERSIGNED.
[2016-12-04 16:50] VITALS: BP 112/64; PULSE 97
== END 2016-12-04 14:10 | disposition home or self-care (01) ==
LOC: RADPROMAIN 09:47
DX: K70.31 Alcoholic cirrhosis of liver with ascites (principal)
CPT/HCPCS: 82565; 85049; 85610; 96365; 36415; 49083; P9047

== ENCOUNTER → 2016-12-13 | Outpatient (CLI) | payer BC ==
[2016-12-13 11:47] LABS: CH 36.7; CHCM 32.1; HCT 33.4 % (39.0-53.0); HDW 1.98; HGB 10.3 gm/dL (13.0-17.5); MCH 35.5 pg (25.0-35.0); MCHC 30.9 g/dL (31.0-37.0); Macrocytosis Marked; Mean Platelet Volume 8.2; RBC 2.91 m/uL (4.30-5.90); RDW 14.6 % (11.5-15.5); WBC 14.6 k/uL (3.8-10.6); WBC (Perox) 15.82
[2016-12-13 11:49] LABS: INR 1.3 (<1.1); Prothrombin Time 12.9 sec (9.0-12.0)
[2016-12-13 11:54] LABS: MCV 114.9 fL (80.0-100.0)
[2016-12-13 12:16] LABS: Calcium 8.6 mg/dL (8.4-10.2); Total Protein 5.5 g/dL (6.3-8.2)
[2016-12-13 12:23] LABS: Manual Review Performed
[2016-12-13 12:24] LABS: Add Differential Manual Differential; Target Cells Present
[2016-12-13 12:26] LABS: Nucleated Red Blood Cells 0 /100 WBC (0-0); Total Cells Counted 200
[2016-12-13 12:27] LABS: Toxic Granulation Present
== END | disposition home or self-care (01) ==
LOC: LABWHC1 11:13
DX: K70.31 Alcoholic cirrhosis of liver with ascites (principal)
CPT/HCPCS: 36415; 80053; 82105; 82140; 85025; 85610

== ENCOUNTER 2016-12-16 13:25 | Inpatient (IN) | payer BC ==
[2016-12-16] MEDS ORDERED: SODIUM CHLORIDE 0.9% 500 ML IV STA (13:44)
--- NOTE | 2016-12-16 13:48 | ED ---
General Adult HPI - General Chief complaint: Abdominal Pain Stated complaint: Pancreatitis Time Seen by Provider: 12/16/16 13:25 Source: patient, family, RN notes reviewed Mode of arrival: wheelchair Limitations: no limitations - History of Present Illness Initial comments: This is a 46-year-old male who presents emergency Department with a past medical history significant for cirrhosis and pancreatitis. Patient states this is all from drinking. Patient states he was originally diagnosed in early October. Patient comes in today because his pain is getting worse he thinks his abdomen is getting more distended and he complains of bilateral plantar surface foot pain. Patient denies any fever or chills. Patient denies any difficulty breathing or shortness of breath per patient denies any chest pain. Patient denies any recent injury or trauma. states she thinks he is confused occasionally as well. Patient denies any headache patient denies numbness or focal weakness. Patient denies any lightheadedness dizziness or near syncopal episode. - Related Data Home Medications Medication Instructions Recorded Confirmed Buprenorphine HCl/Naloxone HCl 1 film SL BID 11/04/16 12/16/16 [Suboxone 8 mg-2 mg Sl Film] Spironolactone [Aldactone] 50 mg PO BID 11/25/16 12/16/16 Folic Acid 1 mg PO DAILY 11/27/16 12/16/16 Modafinil [Provigil] 200 mg PO BID 12/16/16 12/16/16 Previous Rx's Medication Instructions Recorded Furosemide [Lasix] 40 mg PO DAILY #30 tablet 11/06/16 Pantoprazole [Protonix] 40 mg PO AC-BRKFST #30 tablet. 11/06/16 Thiamine [Vitamin B-1] 100 mg PO DAILY #30 tab 11/06/16 Allergies Allergy/AdvReac Type Severity Reaction Status Date / Time No Known Allergies Allergy Verified 12/16/16 13:49 Review of Systems ROS Statement: Those systems with pertinent positive or pertinent negative responses have been documented in the HPI. ROS Other: All systems not noted in ROS Statement are negative. Past Medical History Past Medical History: GERD/Reflux, Liver Disease Additional Past Medical History / Comment(s): back pain, cirrhosis History of Any Multi-Drug Resistant Organisms: None Reported Past Surgical History: Back Surgery Additional Past Surgical History / Comment(s): OPEN HEART SURGERY A CHILD FOR A PIECE OF GLASS LODGED IN HIS HEART, large volume Paracentesis Past Anesthesia/Blood Transfusion Reactions: No Reported Reaction Past Psychological History: No Psychological Hx Reported Smoking Status: Current every day smoker Past Alcohol Use History: Daily Past Drug Use History: Opiates Additional Drug Use History / Comment(s): previous opiate dependance, currently uses suboxone - Past Family History Father History Unknown: Yes General Exam - General Exam Comments Initial Comments: GENERAL: Patient is well-developed and well-nourished. Patient is nontoxic and well- hydrated and is in mild distress. ENT: Neck is soft and supple. No significant lymphadenopathy is noted. Oropharynx is clear. Moist mucous membranes. Neck has full range of motion without eliciting any pain. EYES: The sclera were anicteric and conjunctiva were pink and moist. Extraocular movements were intact and pupils were equal round and reactive to light. Eyelids were unremarkable. PULMONARY: Unlabored respirations. Good breath sounds bilaterally. No audible rales rhonchi or wheezing was noted. CARDIOVASCULAR: There is a regular rate and rhythm without any murmurs gallops or rubs. ABDOMEN: Epigastric abdominal tenderness as well as right and left upper quadrant. Abdomen also is mildly distended. No palpable organomegaly was noted. There is no palpable pulsatile mass. SKIN: Skin is clear with no lesions or rashes and otherwise unremarkable. NEUROLOGIC: Patient is alert and oriented x3. Cranial nerves II through XII are grossly intact. Motor and sensory are also intact. Normal speech, volume and content. Symmetrical smile. MUSCULOSKELETAL: Normal extremities with adequate strength and full range of motion. No lower extremity swelling or edema. No calf tenderness. LYMPHATICS: No significant lymphadenopathy is noted PSYCHIATRIC: Normal psychiatric evaluation. Normal interpersonal interactions appears functionally intact in deals appropriately with others. No signs of depression. Limitations: no limitations Course Vital Signs 12/16/16 12/16/16 13:27 15:22 Temperature 97.5 F L 97.2 F L Pulse Rate 97 99 Respiratory 20 18 Rate Blood Pressure 109/56 115/58 O2 Sat by Pulse 99 98 Oximetry Medical Decision Making - Lab Data Result diagrams: 12/16/16 15:13 12/16/16 15:13 Lab Results 12/16/16 12/16/16 12/16/16 Range/Units 14:00 15:13 15:13 WBC 15.6 H (3.8-10.6) k/uL RBC 2.64 L (4.30-5.90) m/uL Hgb 9.7 L (13.0-17.5) gm/dL Hct 30.0 L (39.0-53.0) % MCV 113.5 H (80.0-100.0) fL MCH 36.8 H (25.0-35.0) pg MCHC 32.4 (31.0-37.0) g/dL RDW 14.6 (11.5-15.5) % Plt Count 311 (150-450) k/uL Neutrophils % 91 % Lymphocytes % 4 % Monocytes % 4 % Eosinophils % 0 % Basophils % 0 % Neutrophils # 14.1 H (1.3-7.7) k/uL Lymphocytes # 0.6 L (1.0-4.8) k/uL Monocytes # 0.7 (0-1.0) k/uL Eosinophils # 0.0 (0-0.7) k/uL Basophils # 0.0 (0-0.2) k/uL Polychromasia Present Macrocytosis Marked Sodium 128 L (137-145) mmol/L Potassium 4.6 (3.5-5.1) mmol/L Chloride 91 L (98-107) mmol/L Carbon Dioxide 21 L (22-30) mmol/L Anion Gap 16 mmol/L BUN 99 H* (9-20) mg/dL Creatinine 3.20 H (0.66-1.25) mg/dL Est GFR (MDRD) Af Amer 25 (>60 ml/min/1.73 sqM) Est GFR (MDRD) Non-Af 21 (>60 ml/min/1.73 sqM) Glucose 116 H (74-99) mg/dL Calcium 8.4 (8.4-10.2) mg/dL Total Bilirubin 2.2 H (0.2-1.3) mg/dL AST 29 (17-59) U/L ALT 24 (21-72) U/L Alkaline Phosphatase 285 H (38-126) U/L Ammonia (<30) umol/L Total Protein 5.5 L (6.3-8.2) g/dL Albumin 2.4 L (3.5-5.0) g/dL Amylase 59 (30-110) U/L Lipase 84 (23-300) U/L Urine Color Yellow Urine Appearance Cloudy (Clear) Urine pH 5.0 (5.0-8.0) Ur Specific [place] 1.011 (1.001-1.035) Urine Protein Trace H (Negative) Urine Glucose (UA) Negative (Negative) Urine Ketones Negative (Negative) Urine Blood Negative (Negative) Urine Nitrate Negative (Negative) Urine Bilirubin Negative (Negative) Urine Urobilinogen <2.0 (<2.0) mg/dL Ur Leukocyte Esterase Large H (Negative) Urine RBC 2 (0-5) /hpf Urine WBC 126 H (0-5) /hpf Urine WBC Clumps Many H (None) /hpf Urine Bacteria Many H (None) /hpf Hyaline Casts 8 H (0-2) /lpf Urine Mucus Rare H (None) /hpf Urine Opiates Screen Not Detected (NotDetected) Ur Oxycodone Screen Not Detected (NotDetected) Urine Methadone Screen Not Detected (NotDetected) Ur Propoxyphene Screen Not Detected (NotDetected) Ur Barbiturates Screen Not Detected (NotDetected) U Tricyclic Antidepress Not Detected (NotDetected) Ur Phencyclidine Scrn Not Detected (NotDetected) Ur Amphetamines Screen Not Detected (NotDetected) U Methamphetamines Scrn Not Detected (NotDetected) U Benzodiazepines Scrn Not Detected (NotDetected) Urine Cocaine Screen Not Detected (NotDetected) U Marijuana (THC) Screen Not Detected (NotDetected) Serum Alcohol <10 mg/dL 12/16/16 Range/Units 15:13 WBC (3.8-10.6) k/uL RBC (4.30-5.90) m/uL Hgb (13.0-17.5) gm/dL Hct (39.0-53.0) % MCV (80.0-100.0) fL MCH (25.0-35.0) pg MCHC (31.0-37.0) g/dL RDW (11.5-15.5) % Plt Count (150-450) k/uL Neutrophils % % Lymphocytes % % Monocytes % % Eosinophils % % Basophils % % Neutrophils # (1.3-7.7) k/uL Lymphocytes # (1.0-4.8) k/uL Monocytes # (0-1.0) k/uL Eosinophils # (0-0.7) k/uL Basophils # (0-0.2) k/uL Polychromasia Macrocytosis Sodium (137-145) mmol/L Potassium (3.5-5.1) mmol/L Chloride (98-107) mmol/L Carbon Dioxide (22-30) mmol/L Anion Gap mmol/L BUN (9-20) mg/dL Creatinine (0.66-1.25) mg/dL Est GFR (MDRD) Af Amer (>60 ml/min/1.73 sqM) Est GFR (MDRD) Non-Af (>60 ml/min/1.73 sqM) Glucose (74-99) mg/dL Calcium (8.4-10.2) mg/dL Total Bilirubin (0.2-1.3) mg/dL AST (17-59) U/L ALT (21-72) U/L Alkaline Phosphatase (38-126) U/L Ammonia 57 H (<30) umol/L Total Protein (6.3-8.2) g/dL Albumin (3.5-5.0) g/dL Amylase (30-110) U/L Lipase (23-300) U/L Urine Color Urine Appearance (Clear) Urine pH (5.0-8.0) Ur Specific [place] (1.001-1.035) Urine Protein (Negative) Urine Glucose (UA) (Negative) Urine Ketones (Negative) Urine Blood (Negative) Urine Nitrate (Negative) Urine Bilirubin (Negative) Urine Urobilinogen (<2.0) mg/dL Ur Leukocyte Esterase (Negative) Urine RBC (0-5) /hpf Urine WBC (0-5) /hpf Urine WBC Clumps (None) /hpf Urine Bacteria (None) /hpf Hyaline Casts (0-2) /lpf Urine Mucus (None) /hpf Urine Opiates Screen (NotDetected) Ur Oxycodone Screen (NotDetected) Urine Methadone Screen (NotDetected) Ur Propoxyphene Screen (NotDetected) Ur Barbiturates Screen (NotDetected) U Tricyclic Antidepress (NotDetected) Ur Phencyclidine Scrn (NotDetected) Ur Amphetamines Screen (NotDetected) U Methamphetamines Scrn (NotDetected) U Benzodiazepines Scrn (NotDetected) Urine Cocaine Screen (NotDetected) U Marijuana (THC) Screen (NotDetected) Serum Alcohol mg/dL Disposition Clinical Impression: Urinary tract infection, Ascites, Hyponatremia, Chronic renal failure Disposition: ADMITTED IP TO THIS HOSP Referrals: Alexander Randhawa MD [Primary Care Provider] - 1-2 days Time of Disposition: 16:43
[2016-12-16] MEDS ORDERED: IBUPROFEN IV 600 MG in SODIUM CHLORIDE 0.9% 250 ML IV STA (13:49)
[2016-12-16 14:31] LABS: Appearance,Urine Cloudy (Clear); Bacteria,Urine Many /hpf; Bilirubin,Urine Negative (Negative); Glucose,Urine (UA) Negative (Negative); Ketones,Urine Negative (Negative); Leukocyte Esterase,Urine Large (Negative); Mucus,Urine Rare /hpf; Nitrite,Urine Negative (Negative); Particle Count 28391; Protein,Urine Trace (Negative); RBC,Urine 2 /hpf (0-5); Specific Gravity,Urine 1.011 (1.001-1.035); UA Billing (MACRO vs. MICRO) MICRO; Urobilinogen,Urine <2.0 mg/dL (<2.0); WBC,Urine 126 /hpf (0-5)
--- NOTE | 2016-12-16 15:09 | XR ---
EXAMINATION TYPE: XR KUB DATE OF EXAM: 12/16/2016 2:51 PM COMPARISON: 11/04/2016 INDICATION: Abdomen pain TECHNIQUE: Single view abdomen upright view FINDINGS: There is a normal bowel gas pattern. Psoas margins are normal. No organomegaly is present. There is a springlike structure above the symphysis pubis. Acetabular spurring is noted. IMPRESSION: 1. Nonspecific bowel gas pattern.
[2016-12-16 15:55] LABS: Basophils % (A) 0 %; CH 35.6; CHCM 31.4; Eosinophils % (A) 0 %; HDW 2.05; HGB 9.7 gm/dL (13.0-17.5); Luc # (Auto) 0.22; Luc % (Auto) 1; Lymphocytes # (A) 0.6 k/uL (1.0-4.8); Lymphocytes % (A) 4 %; MCH 36.8 pg (25.0-35.0); MCHC 32.4 g/dL (31.0-37.0); MCV 113.5 fL (80.0-100.0); Macrocytosis Marked; Mean Platelet Volume 8.2; Monocytes # (A) 0.7 k/uL (0-1.0); Monocytes % (A) 4 %; Neutrophils # (A) 14.1 k/uL (1.3-7.7); Neutrophils % (A) 91 %; RBC 2.64 m/uL (4.30-5.90); RDW 14.6 % (11.5-15.5); WBC 15.6 k/uL (3.8-10.6); WBC (Perox) 17.52
[2016-12-16 15:59] LABS: ALT 24 U/L (21-72); AST 29 U/L (17-59); Alcohol <10 mg/dL; Alkaline Phosphatase 285 U/L (38-126); Amylase 59 U/L (30-110); Anion Gap 16 mmol/L; Calcium 8.4 mg/dL (8.4-10.2); Carbon Dioxide 21 mmol/L (22-30); Chloride 91 mmol/L (98-107); Glucose 116 mg/dL (74-99); Non-African American GFR(MDRD) 21 (>60 ml/min/1.73 sqM); Potassium 4.6 mmol/L (3.5-5.1); Sodium 128 mmol/L (137-145); Total Bilirubin 2.2 mg/dL (0.2-1.3); Total Protein 5.5 g/dL (6.3-8.2)
[2016-12-16 16:03] LABS: Blood Urea Nitrogen 99 mg/dL (9-20)
[2016-12-16 16:19] LABS: Polychromasia Present
[2016-12-16] MEDS ORDERED: SODIUM CHLORIDE 0.9% 1,000 ML IV ONE (16:44)
[2016-12-16] MEDS ORDERED: ONDANSETRON 4 MG/2 ML VIAL IVP PRN (16:45)
[2016-12-16 17:38] LABS: Glucose,Whole Blood 139 mg/dL (75-99)
[2016-12-16] MEDS: FUROSEMIDE 10 MG/ML 10 ML VIAL IV SCH (20:11)
[2016-12-16] MEDS: FOLIC ACID 1 MG TAB PO SCH (20:11)
[2016-12-16] MEDS: SPIRONOLACTONE 25 MG TAB PO SCH (20:11)
[2016-12-16 20:49] LABS: Glucose,Whole Blood 162 mg/dL (75-99)
[2016-12-17 07:34] LABS: Glucose,Whole Blood 138 mg/dL (75-99)
[2016-12-17] MEDS: PANTOPRAZOLE 40 MG TABLET PO SCH (08:07)
[2016-12-17] MEDS: SPIRONOLACTONE 25 MG TAB PO SCH ×2 (08:07→16:41)
[2016-12-17] MEDS: FOLIC ACID 1 MG TAB PO SCH (08:07)
[2016-12-17] MEDS: THIAMINE 100 MG TAB PO SCH (08:08)
[2016-12-17] MEDS: MIDODRINE 5 MG TAB PO SCH ×5 (08:08→17:40)
[2016-12-17] MEDS: FUROSEMIDE 10 MG/ML 10 ML VIAL IV SCH ×2 (08:09→17:40)
[2016-12-17] MEDS: MODAFINIL 200 MG TAB PO SCH ×2 (08:14→15:31)
[2016-12-17 08:58] LABS: CH 35.7; CHCM 31.2; HCT 28.8 % (39.0-53.0); HDW 1.97; MCH 35.8 pg (25.0-35.0); MCHC 31.2 g/dL (31.0-37.0); MCV 114.9 fL (80.0-100.0); Macrocytosis Marked; Mean Platelet Volume 8.4; RBC 2.51 m/uL (4.30-5.90); RDW 14.7 % (11.5-15.5); WBC 13.1 k/uL (3.8-10.6)
[2016-12-17 09:15] LABS: Potassium 3.9 mmol/L (3.5-5.1); Total Bilirubin 1.2 mg/dL (0.2-1.3); Total Protein 5.1 g/dL (6.3-8.2)
--- NOTE | 2016-12-17 09:35 | P.CONS ---
History of Present Illness - Reason for Consult Consult date: 12/17/16 Cirrhosis ascites Requesting physician: Mario Klein - History of Present Illness 46-year-old male with a history of alcohol cirrhosis portal hypertension and recurrent ascites presents with recurrent ascites, elevated BUN/creatinine ammonia/ possible UTI. Sodium 128. 3 large volume paracentesis 8 weeks. states he's been more confused lately. Reports diffuse abdominal discomfort from increased distention. Denies fever, chills, hematemesis, hematochezia, or melena. Afebrile. BUN and creatinine 88/3.8. White count 15.6. Hemoglobin 9.7. Platelets 311. Sodium 128. INR 1.3 on 12/13/2016. Total bilirubin on admission 2.2. AST 29. ALT 24. Alkaline phosphatase 285. Ammonia 57. Presently total bilirubin is 1.2. AST 27. ALT 28. Alkaline phosphatase 281. Review of Systems Constitutional: Denies fever, chills, sweats, weight gain, or loss. HEENT: Negative for migraines, blurred vision or loss, earaches, drainage, tinnitus, oral mucosal lesions, dysphagia, or odynophagia. Cardiac: Open-heart surgery as a child secondary to trauma Negative for chest pain, arrhythmias, or palpitation. Respiratory: Nicotine cigarette dependency. Negative for shortness of breath, hemoptysis, cough, or sputum production. Gastrointestinal: See HPI for pertinent findings. Genitourinary: Negative for hematuria, urgency, frequency, polyuria, dysuria, or penile discharge. Musculoskeletal: Negative for muscle aches, swelling, arthritis, and arthralgias. Neurologic: Negative for stroke or TIA. Endocrine: Negative for thyroid problems. Skin: Negative for rash or itching. Psychiatric: Negative history for depression and anxiety All systems: negative (See HPI) All systems: negative (See HPI) Past Medical History Past Medical History: GERD/Reflux, Liver Disease Additional Past Medical History / Comment(s): back pain, cirrhosis, PANCAREATITIS History of Any Multi-Drug Resistant Organisms: None Reported Past Surgical History: Adenoidectomy, Back Surgery, Hernia Repair, Tonsillectomy Additional Past Surgical History / Comment(s): OPEN HEART SURGERY A CHILD FOR A PIECE OF GLASS LODGED IN HIS HEART, large volume Paracentesis, RT INGUINAL HERNIA Past Anesthesia/Blood Transfusion Reactions: No Reported Reaction Past Psychological History: No Psychological Hx Reported Additional Psychological History / Comment(s): 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 LIVES IN HOME WITH JARVIS. 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 NO HOSPITAL EQUIPMENT. HAS 3 STEPS INTO HOME- HOUSE IN ONE LEVEL. 2 INDOOR CATS. Smoking Status: Current every day smoker Past Alcohol Use History: Daily Additional Past Alcohol Use History / Comment(s): STARTED SMOKING IN 1996, SMOKES 1PPD, PAST VENTURA ETOH-QUIT SEP 2016 Past Drug Use History: Opiates Additional Drug Use History / Comment(s): previous opiate dependance, currently uses suboxone - Past Family History Father History Unknown: Yes Additional Family Medical History / Comment(s): HEALTHY Mother Family Medical History: Diabetes Mellitus Medications and Allergies Home Medications Medication Instructions Recorded Confirmed Type Buprenorphine HCl/Naloxone HCl 1 film SL BID 11/04/16 12/16/16 History [Suboxone 8 mg-2 mg Sl Film] Spironolactone [Aldactone] 50 mg PO BID 11/25/16 12/16/16 History Folic Acid 1 mg PO DAILY 11/27/16 12/16/16 History Modafinil [Provigil] 200 mg PO BID 12/16/16 12/16/16 History Allergies Allergy/AdvReac Type Severity Reaction Status Date / Time No Known Allergies Allergy Verified 12/16/16 13:49 Physical Exam Vitals: Vital Signs Temp Pulse Pulse Resp BP BP Pulse Ox 12/17/16 07:00 96.8 F L 89 16 91/57 98 12/16/16 23:00 97.0 F L 80 16 93/56 99 12/16/16 20:00 77 98/48 12/16/16 17:30 97.2 F L 96 16 90/57 99 12/16/16 17:06 97.2 F L 98 18 97/54 100 Intake and Output 12/16/16 12/17/16 12/17/16 22:59 06:59 14:59 Output Total 500 100 Balance -500 -100 Output: Urine 500 100 Other: Voiding Method Urinal Weight 84.5 kg General appearance: The patient is alert, oriented, in no acute distress. Jaundice. HET: Head is normocephalic and atraumatic. Pupils are equal and reactive. Scleral icterus. Oropharynx is clear without lesions. Neck: Supple without lymphadenopathy. Trachea midline. Heart: S1 S2. Regular rate and rhythm. Lungs: No crackles or wheezes are heard. Abdomen: Soft, distended with ascites, with bowel sounds. Diffuse mild tenderness across mid abdomen. No peritoneal signs. No palpable organomegaly or masses. Extremities: Normal skin color and turgor. No cyanosis, rash, ulceration, clubbing, or edema. Radial and pedal pulses are 2/4 bilaterally. Neurological: No focal deficits. Strength and sensation are grossly intact. Results CBC & Chem 7: 12/17/16 08:09 12/16/16 15:13 Labs: Abnormal Lab Results - Last 24 Hours (Table) 12/16/16 12/16/16 12/17/16 Range/Units 17:37 20:47 07:13 WBC (3.8-10.6) k/uL RBC (4.30-5.90) m/uL Hgb (13.0-17.5) gm/dL Hct (39.0-53.0) % MCV (80.0-100.0) fL MCH (25.0-35.0) pg POC Glucose (mg/dL) 139 H 162 H 138 H (75-99) mg/dL 12/17/16 Range/Units 08:09 WBC 13.1 H (3.8-10.6) k/uL RBC 2.51 L (4.30-5.90) m/uL Hgb 9.0 L (13.0-17.5) gm/dL Hct 28.8 L (39.0-53.0) % MCV 114.9 H (80.0-100.0) fL MCH 35.8 H (25.0-35.0) pg POC Glucose (mg/dL) (75-99) mg/dL Assessment and Plan (1) Alcoholic cirrhosis of liver with ascites Narrative/Plan: Decompensated Status: Acute (2) Acute kidney injury Status: Acute (3) Portal hypertension Status: Acute (4) H/O ETOH abuse Status: Acute (5) Ascites Status: Acute (6) Hepatic encephalopathy Status: Acute (7) Hyponatremia Status: Acute (8) Leukocytosis Status: Acute Plan: 1. Recommend cautious use of diuretics. Recommend nephrology consultation for evaluation of acute kidney injury. 2. We'll proceed with paracentesis and obtain fluid cultures to rule out SBP. 3. Regular diet. 4. Lactulose 20g 3 times daily titrate for at least 3 bowel movements daily. 5. Repeat ammonia level in a.m. Thank you for this kind referral and the opportunity to participate in the care of your patient. This consultation was discussed with Dr. Boo. The impression and plan of care have been directed as dictated.
[2016-12-17] MEDS: LACTULOSE 20 GM/30 ML CUP PO SCH ×3 (09:58→22:07)
[2016-12-17 10:52] LABS: INR 1.2 (<1.1)
--- NOTE | 2016-12-17 15:19 | US ---
Therapeutic and diagnostic paracentesis. CLINICAL HISTORY: Ascites FINDINGS: The procedure was discussed with the patient. The risks, complications, benefits, and alternatives we re discussed and any questions were answered. Informed consent was obtained. The patient was placed s upine on the ultrasound table and prepped and draped in the usual sterile fashion. All elements of maximal barrier technique were utilized. Under ultrasound guidance, access into the right lower quadrant was obtained, via the paracentesis catheter system and direct ultrasound guidanc e. Approximately 4.3 liters of straw-colored fluid was removed. Sample sent to pathology for analysis Th e patient was stable throughout the procedure and remained stable upon discharge from Department of R adiology. IMPRESSION: Successful paracentesis under ultrasound guidance.
[2016-12-17] MEDS: ALBUMIN HUMAN 25% 50 ML in EMPTY BAG 1 BAG IVPB SCH ×2 (16:39→17:06)
--- NOTE | 2016-12-17 17:22 | HP ---
Patient is a 46-year-old with alcoholic cirrhosis and recurrent ascites, came in with abdominal pain and ascites and patient was found to have leukocytosis. Patient does have abdominal tenderness. Patient does have significant spider nevi, engorged veins on the abdomen and caput medusae on the abdomen. Patient denied any fever, chills. Patient denied any nausea, vomiting. Patient has hepatorenal syndrome and Nephrology was consulted. Patient was started on IV Lasix. REVIEW OF SYSTEMS: CONSTITUTIONAL: No fever, no malaise, no fatigue. HEENT: No recent visual problems or hearing problems. Denied any sore throat. CARDIOVASCULAR: No chest pain, orthopnea, PND, no palpitations, no syncope. PULMONARY: No shortness of breath, no cough, no hemoptysis. GASTROINTESTINAL: Abdominal pain as mentioned above; diffuse, sharp and 8/10 in severity. NEUROLOGICAL: No headaches, no weakness, no numbness. HEMATOLOGICAL: Denies any bleeding or petechiae. GENITOURINARY: Denies any burning micturition, frequency, or urgency. MUSCULOSKELETAL/RHEUMATOLOGICAL: Denies any joint pain, swelling, or any muscle pain. ENDOCRINE: Denies any polyuria or polydipsia. The rest of the 14 point review of systems is negative. PAST MEDICAL HISTORY: Gastroesophageal reflux disease, cirrhosis, pancreatitis in the past, adenoidectomy, back surgery, hernia repair, tonsillectomy. Patient continues to smoke. Patient quit alcohol in September 2016. Patient in the past has opiate abuse history, was on Suboxone at some point of time. FAMILY HISTORY: Mother had diabetes mellitus. Father was healthy. Patient is presently on Suboxone. Home medications include: 1. ( ). 2. Naloxone. 3. Spironolactone. 4. Folic acid. 5. Modafinil. ALLERGIES: No known drug allergies. PHYSICAL EXAMINATION: VITAL SIGNS: Temperature 96.8, pulse of 90, respiratory rate of 16, blood pressure is 96/64, saturating at 96% on room air. GENERAL: Patient is cachectic, alert and oriented x3. HEENT: Pupils are round and equally reacting to light. EOMI. No scleral icterus. No conjunctival pallor. Normocephalic, atraumatic. No pharyngeal erythema. No thyromegaly. CARDIOVASCULAR: S1 and S2 present. No murmurs, rubs, or gallops. PULMONARY: Chest is clear to auscultation, no wheezing or crackles. ABDOMEN: Distended with some shifting dullness, although fluid thrills are absent. Patient has palmar erythema, spider nevi as well as significant caput medusae and dilated dermal vasculature in the dermal veins on the abdomen. MUSCULOSKELETAL: No joint swelling or deformity. EXTREMITIES: No cyanosis, clubbing, or pedal edema. NEUROLOGICAL: Gross neurological examination did not reveal any focal deficits. SKIN: No rashes. LABORATORY DATA: CBC, CMP are abnormal for elevated WBC count of 13,100 and hemoglobin of 9, MCV is 114.9 secondary to liver disease. Sodium of 129, chloride of 96, bicarbonate of 18, anion gap of 15. I do not have any lactic acid available at this point of time. Elevated anion gap metabolic acidosis secondary to uremia. Creatinine is improving, actually. Alkaline phosphatase is 281. Ammonia is 57, which patient was started on lactulose. UA showed large leukocyte esterase, although patient does not have any symptoms of UTI, WBC clumps, positive urine bacteria. Urine drug screen is negative. Abdominal x-rays are essentially within normal limits. ASSESSMENT AND PLAN: 1. Alcoholic cirrhosis with the possibility of peritonitis that cannot be ruled out. Patient will be started on Rocephin and patient was started on diuretic therapy, which is expected to improve his hyponatremia. 2. Hypervolemic hyponatremia, acute kidney injury, most probably cardiorenal syndrome. Nephrology was consulted and will continue with diuretic therapy which is IV Lasix. Patient's baseline creatinine in October 2015 was 0.66. Patient is on Aldactone as well, which will be continued at this time. 3. Acute renal failure and prerenal azotemia. 4. Hypervolemic hyponatremia secondary to cirrhosis and ascites. Patient is undergoing a therapeutic thoracentesis and diagnostic paracentesis. 5. Alcohol abuse history. 6. Hepatic encephalopathy. Lactulose as mentioned above, titrated for 2 bowel movements. 7. Leukocytosis secondary to possibility of spontaneous bacterial peritonitis which cannot be ruled out yet. MTDD
[2016-12-17 19:55] LABS: RBC, Body Fluid 1075 /uL
[2016-12-18] MEDS: FUROSEMIDE 10 MG/ML 10 ML VIAL IV SCH (06:25)
[2016-12-18] MEDS: LACTULOSE 20 GM/30 ML CUP PO SCH ×3 (08:07→22:43)
[2016-12-18] MEDS: MIDODRINE 5 MG TAB PO SCH ×3 (08:07→16:33)
[2016-12-18] MEDS: SPIRONOLACTONE 25 MG TAB PO SCH ×2 (08:07→16:33)
[2016-12-18] MEDS: THIAMINE 100 MG TAB PO SCH (08:08)
[2016-12-18] MEDS: FOLIC ACID 1 MG TAB PO SCH (08:08)
[2016-12-18] MEDS: MODAFINIL 200 MG TAB PO SCH ×2 (08:08→16:30)
[2016-12-18] MEDS: PANTOPRAZOLE 40 MG TABLET PO SCH (08:08)
[2016-12-18 09:09] LABS: Calcium 8.5 mg/dL (8.4-10.2); Potassium 3.5 mmol/L (3.5-5.1)
--- NOTE | 2016-12-18 10:47 | P.PN ---
Subjective Principal diagnosis: Alcohol liver cirrhosis portal hypertension and ascites Status post paracentesis with 4.8 L removal. Renal function and ammonia improved. Reports bilateral leg and feet pain. Afebrile. Objective - Vital Signs Vital signs: Vital Signs Temp 97.7 F 12/18/16 07:45 Pulse 91 12/18/16 07:45 Resp 18 12/18/16 07:45 BP 98/60 12/18/16 07:45 Pulse Ox 97 12/18/16 07:45 Intake & Output 12/17/16 12/18/16 12/18/16 18:59 06:59 18:59 Intake Total 290 240 50 Output Total 650 950 600 Balance -161 -504 -555 Weight 84.5 kg 78.698 kg Intake: Intake, IV Titration 50 50 Amount Albumin Human 25% 50 ml 50 In Empty Bag 1 bag @ 200 mls/hr IVPB Q15M [facility] Rx#: [id number] Sodium Chloride 0.9% 1, 0 000 ml @ 75 mls/hr IV . [id number] Rx#:[id number] cefTRIAXone 1,000 mg In 50 Sodium Chloride 0.9% 50 ml @ 100 mls/hr IVPB Q24HR [facility] Rx#:[id number] Oral 240 240 Output: Urine 650 950 600 Other: Voiding Method Urinal Urinal # Voids 1 - Exam General appearance: The patient is alert, oriented, in no acute distress. HET: Head is normocephalic and atraumatic. Pupils are equal and reactive. Oropharynx is clear without lesions. Neck: Supple without lymphadenopathy. Trachea midline. Heart: S1 S2. Regular rate and rhythm. Lungs: No crackles or wheezes are heard. Abdomen: Soft, mildly bloated minimal ascites with bowel sounds. No peritoneal signs. No palpable organomegaly or masses. Extremities: Normal skin color and turgor. No cyanosis, rash, ulceration, clubbing, or edema. Radial and pedal pulses are 2/4 bilaterally. Neurological: No focal deficits. Strength and sensation are grossly intact. - Labs CBC & Chem 7: 12/17/16 08:09 12/18/16 07:37 Labs: Abnormal Lab Results - Last 24 Hours (Table) 12/18/16 12/18/16 Range/Units 07:37 07:37 Sodium 135 L (137-145) mmol/L BUN 90 H* (9-20) mg/dL Creatinine 2.00 H (0.66-1.25) mg/dL Glucose 117 H (74-99) mg/dL Ammonia 35 H (<30) umol/L Microbiology - Last 24 Hours (Table) 12/17/16 14:00 Gram Stain - Preliminary Ascites Fluid Body Fluid Culture - Preliminary Assessment and Plan (1) Alcoholic cirrhosis of liver with ascites Narrative/Plan: Decompensated. Status post paracentesis. Status: Acute (2) Acute kidney injury Status: Acute (3) Portal hypertension Status: Acute (4) H/O ETOH abuse Status: Acute (5) Ascites Status: Acute (6) Hepatic encephalopathy Status: Acute (7) Hyponatremia Status: Acute (8) Leukocytosis Status: Acute Plan: 1. Continue lactulose 3 times daily and titrate for 3 bowel movements daily. 2. We'll defer diuretics to nephrology service. Dietary consultation for nutrition support. 3. Follow up in GI office 1-2 weeks after discharge for reevaluation and discussion of tertiary care transplant evaluation. Family is requesting transplant evaluation. All questions and concerns were answered at bedside with patient's family/significant other named Kaylee this morning. Assessment and plan a care discussed with Dr. Boo.
[2016-12-18 11:35] VITALS: BMI 20.5
[2016-12-18] MEDS ORDERED: POTASSIUM CHLORIDE ER 20 MEQ TAB.ER PO STA (12:33)
[2016-12-18] MEDS: PREGABALIN 75 MG CAP PO SCH ×2 (12:47→22:43)
--- NOTE | 2016-12-18 14:52 | CDI ---
In responding to this query, please exercise your independent professional judgment. The [facility] Coding Staff and Clinical Documentation Specialists appreciate your assistance in clarifying documentation, maintaining compliance with coding guidelines, accurately documenting patients condition and capturing severity of illness. The fact that a question is asked does not imply that any particular answer is desired or expected. Communication forms are a method of clarifying documentation and are not made part of the Legal Health Record. Thank you in advance for your clarification. Last Revision, August 2015 Nicolas Winston [address] [place] [address] Documentation Clarification Form Date: 12/18/2016 2:40:00 PM From: Keerthi Lee Admit Date: 12/16/2016 4:44:00 PM Patient Name: Christian Gayle Visit Number: [id number] Dr. Roni Alfred Cardiorenal Syndrome is documented in the H&P on 12/17. Hepatorenal Syndrome is also documented in the H&P on 12/17. Patient history/risk factors Acute Renal Failure Alcoholic Cirrhosis and Ascites Alcohol Abuse Hepatic Encephalopathy Clinical Indicators: Lab findings on admission: BUN 99, CR 3.20, GFR 21, Alk Phos 285, Ammonia 57, MCV 113.5 Treatment: IV Lasix Paracentesis Consult: Nephrology In your professional opinion, can you please clarify which diagnosis is accurate ? Cardiorenal Syndrome Hepatorenal Syndrome Both Cardiorenal and Hepatorenal Syndrome Other (please specify) Unable to determine Please document in your progress notes and discharge summary in order to capture severity of illness and risk of mortality. Include clinical findings that support your diagnosis. FYI: Press F11 to launch patient chart. __x___ Place X here if this finding has no clinical significance, is not applicable or if you are not able to provide any additional documentation. No cardio renal or hepatorenal syndrome. MTDD
--- NOTE | 2016-12-18 15:23 | PN ---
Patient is a 46-year-old with alcoholic cirrhosis, admitted for abdominal distention. Patient underwent ascitic tap. Patient also has renal dysfunction because of possible hepato-renal syndrome. Patient's kidney function improved with IV Lasix. Will continue with IV Lasix today. Nephrology will evaluate the patient. Patient probably can be discharged tomorrow, although patient does have some diffuse tenderness in the abdomen, ascitic fluid is not consistent with peritonitis. Patient will not need antibiotics at the time of discharge. Patient does not have any urinary tract infection. Although patient is complaining of symptoms are peripheral neuropathy, because of renal dysfunction will start him on a low dose Lyrica. REVIEW OF SYSTEMS: GENERAL: Patient is fatigued and is complaining of some ( ). CARDIOVASCULAR: No chest pain, no orthopnea, no PND, no palpitations. PULMONARY: Denied any shortness of breath. No cough or hemoptysis. GASTROINTESTINAL: No diarrhea, nausea or vomiting. No abdominal pain. Normoactive bowel sounds. NEUROLOGIC: No headaches, no weakness, no numbness. EXTREMITIES: Peripheral neuropathy symptoms as mentioned above. LABORATORY DATA: CBC and CMP are abnormal for mildly elevated WBC count of 13,100 which is reactive leukocytosis which is coming down and sodium improved to 135. BUN of 90, creatinine of 2, ammonia level has come down to 35. PHYSICAL EXAMINATION: VITAL SIGNS: Temperature 96.8, pulse of 90, respiratory rate of 16, blood pressure is 96/64, saturating at 96% on room air. GENERAL: Patient is cachectic, alert and oriented x3. HEENT: Pupils are round and equally reacting to light. EOMI. No scleral icterus. No conjunctival pallor. Normocephalic, atraumatic. No pharyngeal erythema. No thyromegaly. CARDIOVASCULAR: S1 and S2 present. No murmurs, rubs, or gallops. PULMONARY: Chest is clear to auscultation, no wheezing or crackles. ABDOMEN: Distended with some shifting dullness, although fluid thrills are absent. Patient has palmar erythema, spider nevi as well as significant caput medusae and dilated dermal vasculature in the dermal veins on the abdomen. MUSCULOSKELETAL: No joint swelling or deformity. EXTREMITIES: No cyanosis, clubbing, or pedal edema. NEUROLOGICAL: Gross neurological examination did not reveal any focal deficits. SKIN: No rashes. ASSESSMENT AND PLAN: 1. Alcoholic cirrhosis with significant ascites without any evidence of peritonitis. Patient will be continued on diuretic therapy. Patient probably will need 40 oral b.i.d. of Lasix along with 100 mg of spironolactone with repeat basic metabolic profile as an outpatient to make sure potassium is not going down and spironolactone is compensating for his Lasix. 2. Hypovolemic hyponatremia, improved with IV Lasix secondary to cirrhosis. 3. Acute renal failure secondary to prerenal azotemia from cirrhosis which is also improving with IV Lasix. 4. Alcohol abuse history in the past. 5. Hepatic encephalopathy, improving at this point of time. 6. Peripheral neuropathy, probably related to chronic alcohol-related peripheral neuropathy for which will start him on Lyrica. 7. Moderate protein calorie malnutrition secondary to cirrhosis. 8. Asymptomatic bacteria. Patient does not have any urinary tract infection. Patient will not require any antibiotics upon discharge. MTDD
--- NOTE | 2016-12-18 16:38 | P.NPCON ---
History of Present Illness - Reason for Consult acute renal failure - History of Present Illness Reason for consultation: Acute kidney injury History of present illness: Patient is a 46-year-old male seen in renal consultation for acute kidney injury. His baseline creatinine is near 1 and was elevated at 3.2 this admission. It is down to 2.0 today. Patient presented to the hospital with abdominal distention. He has history of liver cirrhosis and underwent paracentesis on December 17 at 4.3 L drained. He did receive 25 g of albumin. His urinalysis noted to be benign. He admitted to good urine output. Denies any vomiting or diarrhea. His oral intake remains poor. He denies any chest pain or shortness of breath. Still admits to abdominal discomfort. He is currently maintained on Lasix 80 mg IV twice daily along withspironolactone 50 mg twice daily Denies use of NSAIDs. Denies vomiting or diarrhea. Vital signs are stable. General: The patient appeared well nourished and normally developed. HEENT: Head exam is unremarkable. Neck is without jugular venous distension. LUNGS: Lungs are clear to auscultation and percussion. Breath sounds decreased. HEART: Rate and Rhythm are regular. First and second heart sounds normal. No murmurs, rubs or gallops. ABDOMEN: Abdominal exam reveals normal bowel sounds. Moderately distended. No evidence of peritonitis. EXTREMITITES: No clubbing, cyanosis, or edema. Past Medical History Past Medical History: GERD/Reflux, Liver Disease Additional Past Medical History / Comment(s): back pain, cirrhosis, PANCAREATITIS History of Any Multi-Drug Resistant Organisms: None Reported Past Surgical History: Adenoidectomy, Back Surgery, Hernia Repair, Tonsillectomy Additional Past Surgical History / Comment(s): OPEN HEART SURGERY A CHILD FOR A PIECE OF GLASS LODGED IN HIS HEART, large volume Paracentesis, RT INGUINAL HERNIA Past Anesthesia/Blood Transfusion Reactions: No Reported Reaction Past Psychological History: No Psychological Hx Reported Additional Psychological History / Comment(s): 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 LIVES IN HOME WITH JARVIS. 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 NO HOSPITAL EQUIPMENT. HAS 3 STEPS INTO HOME- HOUSE IN ONE LEVEL. 2 INDOOR CATS. Smoking Status: Current every day smoker Past Alcohol Use History: Daily Additional Past Alcohol Use History / Comment(s): STARTED SMOKING IN 1996, SMOKES 1PPD, PAST VENTURA ETOH-QUIT SEP 2016 Past Drug Use History: Opiates Additional Drug Use History / Comment(s): previous opiate dependance, currently uses suboxone - Past Family History Father History Unknown: Yes Additional Family Medical History / Comment(s): HEALTHY Mother Family Medical History: Diabetes Mellitus Medications and Allergies Home Medications Medication Instructions Recorded Confirmed Type Buprenorphine HCl/Naloxone HCl 1 film SL BID 11/04/16 12/16/16 History [Suboxone 8 mg-2 mg Sl Film] Spironolactone [Aldactone] 50 mg PO BID 11/25/16 12/16/16 History Folic Acid 1 mg PO DAILY 11/27/16 12/16/16 History Modafinil [Provigil] 200 mg PO BID 12/16/16 12/16/16 History Allergies Allergy/AdvReac Type Severity Reaction Status Date / Time No Known Allergies Allergy Verified 12/16/16 13:49 Physical Exam Vitals: Vital Signs Temp Pulse Resp BP Pulse Ox 12/18/16 15:08 98.4 F 91 16 97/55 99 12/18/16 08:00 18 12/18/16 07:45 97.7 F 91 18 98/60 97 12/17/16 23:05 97.1 F L 83 18 94/52 98 Intake and Output 12/18/16 12/18/16 12/18/16 06:59 14:59 22:59 Intake Total 240 290 Output Total 950 800 Balance -710 -510 Intake: Intake, IV Titration 50 Amount cefTRIAXone 1,000 mg In 50 Sodium Chloride 0.9% 50 ml @ 100 mls/hr IVPB Q24HR [facility] Rx#:[id number] Oral 240 240 Output: Urine 950 800 Other: Voiding Method Urinal Weight 78.698 kg 78.698 kg Patient Weight 12/19/16 06:59 Weight 78.698 kg Results - Lab Results Most recent lab results Calcium 8.5 mg/dL (8.4-10.2) 12/18/16 07:37 12/17/16 08:09 12/18/16 07:37 Assessment and Plan Plan: Assessment: #1. Nonoliguric acute kidney injury that appears to be related to hepatorenal syndrome. Improved with diuresis and paracentesis. Urinalysis is benign. Will also rule out hydronephrosis. Creatinine peaked at 3.2 this admission and is down to 2.0 today. #2. Hypervolemic hyponatremia. Improved post paracentesis. #3. Liver cirrhosis. #4. Anemia. Rule out iron deficiency. #5. Status post paracentesis on December 17 with 4.3 L removed. Plan: Continue with spironolactone 50 mg twice daily. I will change Lasix to 40 mg orally twice daily. I will put him on low-salt and 1.2 L fluid restricted diet. Encourage oral solute intake. Repeat electrolytes in the morning. Check iron studies. Check renal ultrasound. Thank you for the consultation. I will continue to follow the patient with you during his hospital stay.
[2016-12-18 16:47] LABS: % Iron Saturation 21.7 % (20-50)
--- NOTE | 2016-12-18 19:43 | US ---
EXAMINATION TYPE: US kidneys/renal and bladder DATE OF EXAM: 12/18/2016 7:32 PM COMPARISON: NONE CLINICAL HISTORY: savanah. EXAM MEASUREMENTS: Right Kidney: 11.2 x 5.5 x 5.7 cm Left Kidney: 11.6 x 5.0 x 5.3 cm TECHNOLOGIST IMPRESSION: Right Kidney: No hydronephrosis or masses seen Left Kidney: No hydronephrosis or masses seen Bladder: wnl as visualized, limited evaluation due to large amount of free fluid within the pelvic ar ea Bilateral Jets seen: Yes There is a moderate amount of loculated appearing ascites present. IMPRESSION: There is no evidence of renal stone or obstruction. No sign of a renal mass. Ascites fluid is noted.
[2016-12-18 23:47] VITALS: PULSE 98
[2016-12-19 07:49] VITALS: BP 88/52; RESP 20; TEMP 97.1
[2016-12-19] MEDS: PREGABALIN 75 MG CAP PO SCH (08:24)
[2016-12-19] MEDS: THIAMINE 100 MG TAB PO SCH (08:25)
[2016-12-19] MEDS: LACTULOSE 20 GM/30 ML CUP PO SCH (08:25)
[2016-12-19] MEDS: PANTOPRAZOLE 40 MG TABLET PO SCH (08:25)
[2016-12-19] MEDS: FOLIC ACID 1 MG TAB PO SCH (08:25)
[2016-12-19] MEDS: MIDODRINE 5 MG TAB PO SCH (08:25)
[2016-12-19] MEDS: SPIRONOLACTONE 25 MG TAB PO SCH (08:25)
[2016-12-19] MEDS: MODAFINIL 200 MG TAB PO SCH (08:36)
--- NOTE | 2016-12-19 08:57 | P.PN ---
Subjective Principal diagnosis: Alcohol liver cirrhosis portal hypertension and ascites Status post paracentesis with 4.8 L removal. Renal function and ammonia improved. Ammonia 35 yesterday. Reports bilateral leg and feet pain. Afebrile. Objective - Vital Signs Vital signs: Vital Signs Temp 97.1 F L 12/19/16 07:49 Pulse 98 12/19/16 07:49 Resp 20 12/19/16 07:49 BP 88/52 12/19/16 07:49 Pulse Ox 96 12/19/16 07:49 Intake & Output 12/18/16 12/19/16 12/19/16 18:59 06:59 18:59 Intake Total 530 Output Total 800 450 Balance -270 -450 Weight 78.698 kg 77 kg Intake: Intake, IV Titration 50 Amount cefTRIAXone 1,000 mg In 50 Sodium Chloride 0.9% 50 ml @ 100 mls/hr IVPB Q24HR [facility] Rx#:[id number] Oral 480 Output: Urine 800 450 Other: Voiding Method Urinal Urinal Urinal # Voids 1 # Bowel Movements 1 - Exam General appearance: The patient is alert, oriented, in no acute distress. HET: Head is normocephalic and atraumatic. Pupils are equal and reactive. Oropharynx is clear without lesions. Neck: Supple without lymphadenopathy. Trachea midline. Heart: S1 S2. Regular rate and rhythm. Lungs: No crackles or wheezes are heard. Abdomen: Soft, mildly bloated minimal ascites with bowel sounds. No peritoneal signs. No palpable organomegaly or masses. Extremities: Normal skin color and turgor. No cyanosis, rash, ulceration, clubbing, or edema. Radial and pedal pulses are 2/4 bilaterally. Neurological: No focal deficits. Strength and sensation are grossly intact. - Labs CBC & Chem 7: 12/17/16 08:09 12/18/16 07:37 Labs: Abnormal Lab Results - Last 24 Hours (Table) 12/18/16 12/18/16 12/18/16 Range/Units 07:37 07:37 07:37 Sodium 135 L (137-145) mmol/L BUN 90 H* (9-20) mg/dL Creatinine 2.00 H (0.66-1.25) mg/dL Glucose 117 H (74-99) mg/dL Iron 28 L (49-181) ug/dL TIBC 129 L (261-462) ug/dL Ferritin 940 H (18-464) ng/mL Ammonia 35 H (<30) umol/L Microbiology - Last 24 Hours (Table) 12/17/16 14:00 Gram Stain - Preliminary Ascites Fluid Body Fluid Culture - Preliminary Assessment and Plan (1) Alcoholic cirrhosis of liver with ascites Narrative/Plan: Decompensated. Status post paracentesis. Status: Acute (2) Acute kidney injury Status: Acute (3) Portal hypertension Status: Acute (4) H/O ETOH abuse Status: Acute (5) Ascites Status: Acute (6) Hepatic encephalopathy Status: Acute (7) Hyponatremia Status: Acute (8) Leukocytosis Status: Acute Plan: 1. Continue lactulose 3 times daily and titrate for 3 bowel movements daily. Discharge per medicine if chemistries are stable this morning. 2. We'll defer diuretics to nephrology service. Dietary consultation for nutrition support. 3. Follow up in GI office 1-2 weeks after discharge for reevaluation and discussion of tertiary care transplant evaluation. Family is requesting transplant evaluation. All questions and concerns were answered at bedside with patient's family/significant other named Kaylee this morning. Assessment and plan a care discussed with Dr. Boo.
[2016-12-19] MEDS ORDERED: FUROSEMIDE 40 MG TAB PO SCH (09:00)
[2016-12-19 10:25] LABS: Calcium 8.5 mg/dL (8.4-10.2); Potassium 3.9 mmol/L (3.5-5.1)
--- NOTE | 2016-12-19 10:32 | P.PN ---
Subjective Patient is seen in follow-up for acute kidney injury. Baseline creatinine is near 1 and was elevated at 3.2 this admission and down to 2.0 yesterday. Patient is a liver cirrhosis and did undergo paracentesis on December 17 at 4.3 L drained. Currently he is resting in bed. Denies any vomiting or diarrhea. Admits to good urine output. His oral intake is improving. Vital signs are stable. General: The patient appeared well nourished and normally developed. HEENT: Head exam is unremarkable. Neck is without jugular venous distension. LUNGS: Lungs are clear to auscultation and percussion. Breath sounds decreased. HEART: Rate and Rhythm are regular. First and second heart sounds normal. No murmurs, rubs or gallops. ABDOMEN: Abdominal exam reveals normal bowel sounds. Moderately distended. EXTREMITITES: No clubbing, cyanosis, or edema. Objective - Vital Signs Vital signs: Vital Signs Temp 97.1 F L 12/19/16 07:49 Pulse 98 12/19/16 07:49 Resp 20 12/19/16 07:49 BP 88/52 12/19/16 07:49 Pulse Ox 96 12/19/16 07:49 Intake & Output 12/18/16 12/19/16 12/19/16 18:59 06:59 18:59 Intake Total 530 Output Total 800 450 Balance -270 -450 Weight 78.698 kg 77 kg Intake: Intake, IV Titration 50 Amount cefTRIAXone 1,000 mg In 50 Sodium Chloride 0.9% 50 ml @ 100 mls/hr IVPB Q24HR [facility] Rx#:[id number] Oral 480 Output: Urine 800 450 Other: Voiding Method Urinal Urinal Urinal # Voids 1 # Bowel Movements 1 - Labs CBC & Chem 7: 12/17/16 08:09 12/18/16 07:37 Labs: Abnormal Lab Results - Last 24 Hours (Table) 12/18/16 Range/Units 07:37 Iron 28 L (49-181) ug/dL TIBC 129 L (261-462) ug/dL Ferritin 940 H (18-464) ng/mL Microbiology - Last 24 Hours (Table) 12/17/16 14:00 Gram Stain - Preliminary Ascites Fluid Body Fluid Culture - Preliminary Assessment and Plan Plan: Assessment: #1. Nonoliguric acute kidney injury that appears to be related to hepatorenal syndrome. Improved with diuresis and paracentesis. Urinalysis is benign. No evidence of hydronephrosis. Creatinine peaked at 3.2 this admission and is down to 2.0 as of yesterday. #2. Hypervolemic hyponatremia. Improved post paracentesis. #3. Liver cirrhosis. #4. Anemia. Mild iron deficiency present. #5. Status post paracentesis on December 17 with 4.3 L removed. Plan: Continue with spironolactone 50 mg twice daily. Continue Lasix 40 mg orally twice daily. Maintain low-salt and 1.2 L fluid restricted diet. Encourage oral solute intake. Repeat electrolytes in the morning. Ferrlecit 125 mg IV 2 doses.
[2016-12-20] MEDS ORDERED: SODIUM FERRIC GLUCONAT-SUCROSE 125 MG in SODIUM CHLORIDE 0.9% 100 ML IVPB SCH (09:00)
--- NOTE | 2016-12-20 19:30 | DS ---
DATE OF ADMISSION: 12/16/2016 DATE OF DISCHARGE: 12/19/2016 FINAL DIAGNOSES: 1. Alcoholic cirrhosis with significant ascites without evidence of peritonitis. 2. Hypovolemic hyponatremia. 3. Acute renal failure secondary to prerenal azotemia from cirrhosis. 4. Alcoholic cirrhosis. 5. Hepatic encephalopathy present at the time of admission from cirrhosis. 6. Peripheral neuropathy related to chronic alcohol use. 7. Moderate protein calorie malnutrition secondary to cirrhosis. 8. Hepatorenal syndrome. DISCHARGE MEDICATIONS: 1. Suboxone 8 mg/2 mg b.i.d. 2. Protonix 40 mg with breakfast. 3. Thiamine 100 mg a day. 4. Aldactone 50 mg b.i.d. 5. Folic acid 1 mg p.o. daily. 6. Modafinil 200 mg p.o. b.i.d. 7. Lasix 40 mg b.i.d. 8. Lactulose 20 grams p.o. t.i.d., to titrate 2 or 3 bowel movements a day. 9. Midodrine 5 mg p.o. a.c. t.i.d. 10. Lyrica 75 mg p.o. b.i.d. Consultations: 1. Dr. Martinez from Nephrology. 2. Dr. Boo from GI. HOSPITAL COURSE: This is a patient with alcoholic cirrhosis, recurrent ascites, who came in with abdominal pain and ascites. The patient is felt to be prerenal including also third spacing. Patient was actually given IV Lasix with which he actually improved. Patient's creatinine from 3.0 did drop down to 1.54. There is of course a hepatorenal component. Per my colleagues evaluation, patient was not felt to have any urinary tract infection. I spoke at length to the patient and sister on day of discharge. They are looking into transplant. I did tell them to follow with Dr. Boo and then he will coordinate things further from there. He will also follow with nephrology in view of his renal function. Overall prognosis is guarded. PROCEDURE: Patient had 4.3 liters of acetic fluid removed. On examination: LUNGS: Fair air entry. ABDOMEN: Slight distention. Follow with Dr. Boo in one week. Follow up with Dr. Alexander Randhawa in one week. Follow up with nephrology in 7 to 10 days. BMP in one week. Fluid restriction 600 mL a day. Low salt diet. Daily weights. Discharge planning more than 35 minutes.
[2016-12-22 09:27] LABS: Mis test requested (Non-blood) Glucose-Ascitic Fld
== END 2016-12-19 11:00 | disposition home health service (06) | DRG 432 ==
LOC: EC 13:25 → 4MS4W 16:44
PROVIDERS: ADMIT Hospitalist; ATTEND Hospitalist
PROC: 0W9G3ZX Drainage of Peritoneal Cavity, Percutaneous Approach, Diagnostic (ICD-10-PCS; principal; 2016-12-17)
DX: K70.31 Alcoholic cirrhosis of liver with ascites (principal); K76.7 Hepatorenal syndrome; N17.9 Acute kidney failure, unspecified; E44.0 Moderate protein-calorie malnutrition; E87.1 Hypo-osmolality and hyponatremia; K76.6 Portal hypertension; E87.70 Fluid overload, unspecified; G62.9 Polyneuropathy, unspecified; K72.90 Hepatic failure, unspecified without coma; D64.9 Anemia, unspecified; K21.9 Gastro-esophageal reflux disease without esophagitis; F17.210 Nicotine dependence, cigarettes, uncomplicated; F11.10 Opioid abuse, uncomplicated; D50.9 Iron deficiency anemia, unspecified; Z87.898 Personal history of other specified conditions; Z79.899 Other long term (current) drug therapy
CPT/HCPCS: 36415; 49083; 74000; 76770; 80048; 80053; 80306; 80320; 81001; 82140; 82150; 82728; 82945; 83540; 83550; 83690; 85025; 85027; 85610; 87040; 87070; 87205; 89050; 96361; 96365; 96367; 99285

== ENCOUNTER 2017-01-01 08:57 | Day surgery (SDC) | payer BC ==
[2017-01-01 09:14] VITALS: RESP 16; TEMP 97.8
[2017-01-01 09:55] LABS: Mean Platelet Volume 9.2
[2017-01-01 10:02] LABS: Prothrombin Time 10.6 sec (9.0-12.0)
[2017-01-01 10:04] LABS: Non-African American GFR(MDRD) >60 (>60 ml/min/1.73 sqM)
[2017-01-01 11:25] VITALS: BP 98/57; PULSE 86
--- NOTE | 2017-01-01 11:30 | US ---
EXAMINATION TYPE: US paracentesis abd w/image DATE OF EXAM: 01/01/2017 11:00 AM COMPARISON: NONE HISTORY: Ascites. PROCEDURE: Maximal barrier technique was utilized. The skin overlying a suitable pocket of fluid was localized with ultrasound and the overlying skin was prepped and draped. Ultrasound was utilized with sterile technique. Lidocaine was used for local anesthesia and a skin jacquie made with a scalpel. Catheter was advanced under direct ultrasound guidance into a suitable pocket of fluid and approximately 0.3 liter s of serous fluid were removed. Catheter was withdrawn and hemostasis achieved. There is no immedia te complication; the patient is discharged in stable condition. IMPRESSION: STATUS POST ULTRASOUND GUIDED PARACENTESIS FOR PALLIATION OF ASCITES. THIS PROCEDURE WA S PERFORMED BY THE UNDERSIGNED.
== END 2017-01-01 11:15 | disposition home or self-care (01) ==
LOC: RADPROMAIN 08:57
DX: R18.8 Other ascites (principal)
CPT/HCPCS: 36415; 49083; 82565; 85049; 85610

== ENCOUNTER 2017-01-06 15:36 | Inpatient (IN) | payer BC ==
--- NOTE | 2017-01-06 16:41 | ED ---
General Adult HPI - General Chief complaint: Fever Stated complaint: fever Time Seen by Provider: 01/06/17 16:00 Source: patient, family, RN notes reviewed Mode of arrival: wheelchair Limitations: no limitations - History of Present Illness Initial comments: This is a 46-year-old male with past medical history significant for alcoholic cirrhosis. Patient was sent into the emergency department however he has no complaints. According to him the nurse that came to see him noted that he had a low-grade fever of 100 and last night he had a fever 100.3 so she wanted him to be reevaluated emergency department. Patient denies any headache patient denies numbness weakness. Patient denies any chest pain difficulty breathing palpitations or shortness of breath. Patient denies any abdominal pain patient denies nausea vomiting or diarrhea. Patient denies any dysuria hematuria urinary frequency. Patient denies any rashes lesions. Patient states he does have a burn on his back for 2 weeks from a heating pad. he has been putting silvadene on it. He states it doesn't bother him. Again patient does not have any complaints and states that he shouldn't even be here - Related Data Home Medications Medication Instructions Recorded Confirmed Buprenorphine HCl/Naloxone HCl 1 film SL BID 11/04/16 01/06/17 [Suboxone 8 mg-2 mg Sl Film] Folic Acid 1 mg PO DAILY 11/27/16 01/06/17 Modafinil [Provigil] 200 mg PO BID 12/16/16 01/06/17 Previous Rx's Medication Instructions Recorded Pantoprazole [Protonix] 40 mg PO LEANN-BRKFST #30 tablet. 11/06/16 Thiamine [Vitamin B-1] 100 mg PO DAILY #30 tab 11/06/16 Lactulose 20 gm PO TID #2700 ml 12/19/16 Pregabalin [Lyrica] 75 mg PO BID #60 cap 12/19/16 Allergies Allergy/AdvReac Type Severity Reaction Status Date / Time No Known Allergies Allergy Verified 01/06/17 17:02 Review of Systems ROS Statement: Those systems with pertinent positive or pertinent negative responses have been documented in the HPI. ROS Other: All systems not noted in ROS Statement are negative. Past Medical History Past Medical History: GERD/Reflux, Liver Disease Additional Past Medical History / Comment(s): back pain, cirrhosis, PANCAREATITIS History of Any Multi-Drug Resistant Organisms: None Reported Past Surgical History: Adenoidectomy, Back Surgery, Hernia Repair, Tonsillectomy Additional Past Surgical History / Comment(s): OPEN HEART SURGERY A CHILD FOR A PIECE OF GLASS LODGED IN HIS HEART, large volume Paracentesis, RT INGUINAL HERNIA Past Anesthesia/Blood Transfusion Reactions: No Reported Reaction Past Psychological History: No Psychological Hx Reported Additional Psychological History / Comment(s): 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 LIVES IN HOME WITH JARVIS. 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 NO HOSPITAL EQUIPMENT. HAS 3 STEPS INTO HOME- HOUSE IN ONE LEVEL. 2 INDOOR CATS. Smoking Status: Current some day smoker Past Alcohol Use History: None Reported, Daily Additional Past Alcohol Use History / Comment(s): STARTED SMOKING IN 1996, SMOKES 1PPD, PAST VENTURA ETOH-QUIT SEP 2016 Past Drug Use History: None Reported, Opiates Additional Drug Use History / Comment(s): previous opiate dependance, currently uses suboxone - Past Family History Father History Unknown: Yes Additional Family Medical History / Comment(s): HEALTHY Mother Family Medical History: Diabetes Mellitus General Exam - General Exam Comments Initial Comments: GENERAL: Patient is well-developed and well-nourished. Patient is nontoxic and well- hydrated and is in no acute distress. ENT: Neck is soft and supple. No significant lymphadenopathy is noted. Oropharynx is clear. Moist mucous membranes. Neck has full range of motion without eliciting any pain. EYES: The sclera were anicteric and conjunctiva were pink and moist. Extraocular movements were intact and pupils were equal round and reactive to light. Eyelids were unremarkable. PULMONARY: Unlabored respirations. Decreased breath sounds on the right typical of effusion CARDIOVASCULAR: There is a regular rate and rhythm without any murmurs gallops or rubs. ABDOMEN: Abdomen is his typical for ascites SKIN: Patient has a burn on the back that looks like it is healing does not appear to be infected but it is erythematous typical of a burn NEUROLOGIC: Patient is alert and oriented x3. Cranial nerves II through XII are grossly intact. Motor and sensory are also intact. Normal speech, volume and content. Symmetrical smile. MUSCULOSKELETAL: Normal extremities with adequate strength and full range of motion. No lower extremity swelling or edema. No calf tenderness. LYMPHATICS: No significant lymphadenopathy is noted PSYCHIATRIC: Normal psychiatric evaluation. Normal interpersonal interactions appears functionally intact in deals appropriately with others. No signs of depression. No signs of anxiety. Limitations: no limitations Course Vital Signs 01/06/17 01/06/17 16:01 16:57 Temperature 98.4 F 98.3 F Pulse Rate 83 86 Respiratory 15 18 Rate Blood Pressure 91/56 95/50 O2 Sat by Pulse 99 99 Oximetry Medical Decision Making - Medical Decision Making Chest x-ray shows bilateral pleural effusions which are new and and new infiltrate on the left. - Lab Data Result diagrams: 01/06/17 16:50 01/06/17 16:50 Lab Results 01/06/17 01/06/17 01/06/17 Range/Units 16:50 16:50 16:50 WBC 10.7 H (3.8-10.6) k/uL RBC 2.58 L (4.30-5.90) m/uL Hgb 8.9 L (13.0-17.5) gm/dL Hct 28.2 L (39.0-53.0) % MCV 109.2 H D (80.0-100.0) fL MCH 34.4 (25.0-35.0) pg MCHC 31.5 (31.0-37.0) g/dL RDW 14.7 (11.5-15.5) % Plt Count 391 (150-450) k/uL Neutrophils % 79 % Lymphocytes % 9 % Monocytes % 8 % Eosinophils % 1 % Basophils % 1 % Neutrophils # 8.5 H (1.3-7.7) k/uL Lymphocytes # 0.9 L (1.0-4.8) k/uL Monocytes # 0.8 (0-1.0) k/uL Eosinophils # 0.1 (0-0.7) k/uL Basophils # 0.1 (0-0.2) k/uL Manual Slide Review Performed Polychromasia Present Hypochromasia Slight Macrocytosis Marked Sodium 135 L (137-145) mmol/L Potassium 4.7 (3.5-5.1) mmol/L Chloride 96 L (98-107) mmol/L Carbon Dioxide 27 (22-30) mmol/L Anion Gap 12 mmol/L BUN 46 H (9-20) mg/dL Creatinine 0.97 (0.66-1.25) mg/dL Est GFR (MDRD) Af Amer >60 (>60 ml/min/1.73 sqM) Est GFR (MDRD) Non-Af >60 (>60 ml/min/1.73 sqM) Glucose 124 H (74-99) mg/dL Calcium 8.5 (8.4-10.2) mg/dL Total Bilirubin 0.6 (0.2-1.3) mg/dL AST 32 (17-59) U/L ALT 27 (21-72) U/L Alkaline Phosphatase 232 H (38-126) U/L Total Protein 5.7 L (6.3-8.2) g/dL Albumin 2.5 L (3.5-5.0) g/dL Urine Color Urine Appearance (Clear) Urine pH (5.0-8.0) Ur Specific [place] (1.001-1.035) Urine Protein (Negative) Urine Glucose (UA) (Negative) Urine Ketones (Negative) Urine Blood (Negative) Urine Nitrite (Negative) Urine Bilirubin (Negative) Urine Urobilinogen (<2.0) mg/dL Ur Leukocyte Esterase (Negative) Influenza Type A RNA Not Detected (Not Detectd) Influenza Type B (PCR) Not Detected (Not Detectd) 01/06/17 Range/Units 16:50 WBC (3.8-10.6) k/uL RBC (4.30-5.90) m/uL Hgb (13.0-17.5) gm/dL Hct (39.0-53.0) % MCV (80.0-100.0) fL MCH (25.0-35.0) pg MCHC (31.0-37.0) g/dL RDW (11.5-15.5) % Plt Count (150-450) k/uL Neutrophils % % Lymphocytes % % Monocytes % % Eosinophils % % Basophils % % Neutrophils # (1.3-7.7) k/uL Lymphocytes # (1.0-4.8) k/uL Monocytes # (0-1.0) k/uL Eosinophils # (0-0.7) k/uL Basophils # (0-0.2) k/uL Manual Slide Review Polychromasia Hypochromasia Macrocytosis Sodium (137-145) mmol/L Potassium (3.5-5.1) mmol/L Chloride (98-107) mmol/L Carbon Dioxide (22-30) mmol/L Anion Gap mmol/L BUN (9-20) mg/dL Creatinine (0.66-1.25) mg/dL Est GFR (MDRD) Af Amer (>60 ml/min/1.73 sqM) Est GFR (MDRD) Non-Af (>60 ml/min/1.73 sqM) Glucose (74-99) mg/dL Calcium (8.4-10.2) mg/dL Total Bilirubin (0.2-1.3) mg/dL AST (17-59) U/L ALT (21-72) U/L Alkaline Phosphatase (38-126) U/L Total Protein (6.3-8.2) g/dL Albumin (3.5-5.0) g/dL Urine Color Yellow Urine Appearance Clear (Clear) Urine pH 6.5 (5.0-8.0) Ur Specific [place] 1.016 (1.001-1.035) Urine Protein Trace H (Negative) Urine Glucose (UA) Negative (Negative) Urine Ketones Negative (Negative) Urine Blood Negative (Negative) Urine Nitrite Negative (Negative) Urine Bilirubin Negative (Negative) Urine Urobilinogen 2.0 (<2.0) mg/dL Ur Leukocyte Esterase Negative (Negative) Influenza Type A RNA (Not Detectd) Influenza Type B (PCR) (Not Detectd) Disposition Clinical Impression: Pneumonia, Pleural effusion Disposition: ADMITTED IP TO THIS [facility] Time of Disposition: 18:16
[2017-01-06 17:05] LABS: Basophils # (A) 0.1 k/uL (0-0.2); Basophils % (A) 1 %; CH 34.4; CHCM 31.6; Eosinophils # (A) 0.1 k/uL (0-0.7); Eosinophils % (A) 1 %; HCT 28.2 % (39.0-53.0); HGB 8.9 gm/dL (13.0-17.5); Hypochromasia Slight; Luc # (Auto) 0.29; Luc % (Auto) 3; Lymphocytes # (A) 0.9 k/uL (1.0-4.8); Lymphocytes % (A) 9 %; MCH 34.4 pg (25.0-35.0); MCHC 31.5 g/dL (31.0-37.0); Macrocytosis Marked; Mean Platelet Volume 8.8; Monocytes # (A) 0.8 k/uL (0-1.0); Monocytes % (A) 8 %; Neutrophils # (A) 8.5 k/uL (1.3-7.7); Neutrophils % (A) 79 %; RBC 2.58 m/uL (4.30-5.90); RDW 14.7 % (11.5-15.5); WBC 10.7 k/uL (3.8-10.6)
[2017-01-06 17:08] LABS: Appearance,Urine Clear (Clear); Bilirubin,Urine Negative (Negative); Glucose,Urine (UA) Negative (Negative); Ketones,Urine Negative (Negative); Leukocyte Esterase,Urine Negative (Negative); Nitrite,Urine Negative (Negative); PH, Urine 6.5 (5.0-8.0); Protein,Urine Trace (Negative); Specific Gravity,Urine 1.016 (1.001-1.035); UA Billing (MACRO vs. MICRO) CHEM
[2017-01-06 17:21] LABS: MCV 109.2 fL (80.0-100.0)
[2017-01-06 17:23] LABS: ALT 27 U/L (21-72); AST 32 U/L (17-59); Alkaline Phosphatase 232 U/L (38-126); Anion Gap 12 mmol/L; Blood Urea Nitrogen 46 mg/dL (9-20); Calcium 8.5 mg/dL (8.4-10.2); Carbon Dioxide 27 mmol/L (22-30); Chloride 96 mmol/L (98-107); Glucose 124 mg/dL (74-99); Non-African American GFR(MDRD) >60 (>60 ml/min/1.73 sqM); Potassium 4.7 mmol/L (3.5-5.1); Sodium 135 mmol/L (137-145); Total Bilirubin 0.6 mg/dL (0.2-1.3); Total Protein 5.7 g/dL (6.3-8.2)
[2017-01-06 17:24] LABS: Manual Review Performed; Polychromasia Present
--- NOTE | 2017-01-06 18:01 | XR ---
EXAMINATION TYPE: XR chest 2V DATE OF EXAM: 01/06/2017 5:37 PM COMPARISON: November 04, 2016 HISTORY: Dyspnea with fever TECHNIQUE: Frontal and lateral views of the chest are obtained. FINDINGS: There is a large right pleural effusion on the present examination, with evidence of small left pleural effusion posteriorly on the lateral radiograph. The right lower lobe cannot be well visu alized as a result, and there is partial airlessness of the left lower lobe as a result. There is a subtle finding of increased density over the left scapula, which could represent developin g bronchopneumonia, but this density overlies the left scapula. Remainder of the lung parenchyma clear. There is no evidence of pulmonary edema. The cardiac silhouet te and bones and soft tissues are unremarkable. There is no pneumothorax or other abnormal gas collec tions. IMPRESSION: 1. Prominent right pleural effusion with right lower lobe airlessness. 2. Small left pleural effusion posteriorly with partial left lower lobe airlessness. 3. Suspect developing left upper lobe infiltrate.
[2017-01-06] MEDS ORDERED: LEVOFLOXACIN 750MG-D5W PMX 750 MG in DEXTROSE/WATER 1 150ML.BAG IVPB STA (18:12)
[2017-01-06] MEDS ORDERED: PNEUMONIA PROTOCOL UTILIZED 1 EACH MISC PO PRN (18:17)
[2017-01-06] MEDS: FUROSEMIDE 10 MG/ML 2 ML VIAL IV SCH (21:47)
[2017-01-06] MEDS: PREGABALIN 75 MG CAP PO SCH (21:49)
[2017-01-07] MEDS: MODAFINIL 200 MG TAB PO SCH ×2 (06:20→16:01)
[2017-01-07] MEDS: PANTOPRAZOLE 40 MG TABLET PO SCH (08:02)
[2017-01-07] MEDS: PREGABALIN 75 MG CAP PO SCH ×2 (08:03→20:19)
[2017-01-07] MEDS: FUROSEMIDE 10 MG/ML 2 ML VIAL IV SCH ×3 (08:03→16:01)
[2017-01-07] MEDS: FOLIC ACID 1 MG TAB PO SCH (08:03)
--- NOTE | 2017-01-07 08:10 | XR ---
EXAMINATION TYPE: XR chest 2V DATE OF EXAM: 01/07/2017 7:30 AM COMPARISON: Prior chest x-ray 06 January 2017 HISTORY: Pneumonia TECHNIQUE: Frontal and lateral views of the chest are obtained. FINDINGS: Similar findings, there is blunting of the posterior costophrenic angles. Increased AP kevon meter of the chest compatible with underlying COPD. No pneumothorax. Heart size is stable. Retrocardi ac density is suspected. Patchy basilar density again noted. IMPRESSION: Bilateral pleural effusions right greater than left, there is likely associated atelecta sis versus edema, correlate to exclude pneumonia. Cardiomegaly. Possible hiatal hernia.
[2017-01-07] MEDS: THIAMINE 100 MG TAB PO SCH (11:27)
--- NOTE | 2017-01-07 12:11 | HP ---
DATE OF ADMISSION: 01/06/2017 PRESENTING COMPLAINT: Edema. HISTORY OF PRESENTING COMPLAINT: This is a very pleasant 46-year-old patient of Dr. Randhawa. Patient was here earlier in the month. Patient has an alcoholic cirrhosis. Other chronic stable conditions include peripheral neuropathy and also had hepatorenal syndrome at the time. Since then, patient went and saw Dr. Solomon ( ) a liver specialist down at [facility]. Diuretics were held off. Patient noticed that slowly his legs started swelling. Patient was starting to get a little bit short of breath with exertion and when his visiting nurse came out, she sent the patient in. Patient had swelling and edema in the ER, was started on IV Lasix. Since getting the Lasix, edema has come down, breathing feels a little bit better. Denies any cough. No fever. Appetite has been good. No urinary symptoms. REVIEW OF SYSTEMS: CONSTITUTIONAL: Tired. HEENT: None. RESPIRATORY: As above. CARDIOVASCULAR: None. GASTROINTESTINAL: None. GENITOURINARY: None. MUSCULOSKELETAL: None. DERMATOLOGICAL: None. HEMATOLOGIC: None. LYMPHATICS: None. PSYCHIATRY: None. NEUROLOGICAL: Numbness, tingling in his feet. PAST MEDICAL HISTORY: GERD, alcoholic cirrhosis, peripheral neuropathy. PAST SURGICAL HISTORY: Adenoidectomy, back surgery, hernia repair, tonsillectomy, open-heart surgery with a shattered piece of glass lodged in his heart, large volume paracentesis, inguinal hernia. 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 Started smoking in 1996. Smoked a pack a day. Patient stopped drinking alcohol in September of 2016. Patient did some opiate dependence previously, now on Suboxone. Family history of diabetes. HOME MEDICATIONS: 1. Thiamine 100 mg a day. 2. Lyrica 75 mg p.o. b.i.d. 3. Protonix 40 mg p.o. daily. 4. Modafinil 200 mg p.o. b.i.d. 5. Lactulose 20 gm p.o. t.i.d. 6. Folic acid 1 mg p.o. daily. 7. Suboxone 8/2 one film sublingual b.i.d. ALLERGIES: None. On examination, vital signs on presentation: Temperature 100.5, pulse 97, respirations 18, blood pressure 111/68, pulse ox 100% on 2 L. GENERAL APPEARANCE: Well-nourished, lying in bed, not in distress. EYES: Pupils equal. Conjunctivae normal. HEENT: Oral cavity normal. NECK: JVD not raised. Mass not palpable. Respiratory effort increased. LUNGS: Decreased breath sounds. CARDIOVASCULAR: First and second sounds normal, edema present. ABDOMEN: Distended, soft. Liver and spleen are not palpable. LYMPHATIC: No lymph nodes palpable in neck or axillae. PSYCHIATRY: Alert and oriented x3. Mood and affect normal. NEUROLOGICAL: Pupils equal. Cranial nerves grossly intact. Sensation decreased. INVESTIGATIONS: White count 10.7, hemoglobin 8.9, potassium 4.7. BUN 46, creatinine 0.97, albumin 2.5. Chest x-ray shows right pleural effusion, questionable left-sided infiltrate. IMPRESSION: 1. Alcoholic cirrhosis. 2. Ascites from cirrhosis. 3. Suspect secondary portal hypertension. 4. Hypoalbuminemia from liver disease. 5. Right pleural effusion from fluid overload and also there is venous prominence in the x-ray. 6. Macrocytic anemia. 7. Questionable left lobe pneumonia/possible causing fever on presentation. PLAN: Patient started on IV ceftriaxone and also started on IV Lasix. Home medications will be resumed. Will also add Aldactone. Care was discussed with the patient and sister at the bedside. Questions were answered. Also put the patient on fluid restriction and low salt. Patient needs at least 2 nights' stay in the hospital for his management.
[2017-01-07] MEDS: LACTULOSE 20 GM/30 ML CUP PO SCH ×2 (16:01→21:17)
[2017-01-07] MEDS ORDERED: LEVOFLOXACIN 750MG-D5W PMX 750 MG in DEXTROSE/WATER 1 150ML.BAG IVPB SCH (19:00)
[2017-01-08] MEDS: FUROSEMIDE 10 MG/ML 2 ML VIAL IV SCH ×3 (00:13→15:02)
[2017-01-08] MEDS: MODAFINIL 200 MG TAB PO SCH (06:49)
[2017-01-08 07:18] VITALS: BP 112/59; PULSE 69; RESP 16; TEMP 98
[2017-01-08] MEDS: PANTOPRAZOLE 40 MG TABLET PO SCH (07:46)
[2017-01-08] MEDS: PREGABALIN 75 MG CAP PO SCH (07:46)
[2017-01-08] MEDS: LACTULOSE 20 GM/30 ML CUP PO SCH ×2 (07:47→15:02)
[2017-01-08] MEDS ORDERED: SPIRONOLACTONE 25 MG TAB PO SCH (09:00)
[2017-01-08 09:03] LABS: Anion Gap 11 mmol/L; Blood Urea Nitrogen 32 mg/dL (9-20); Calcium 8.5 mg/dL (8.4-10.2); Carbon Dioxide 28 mmol/L (22-30); Chloride 96 mmol/L (98-107); Glucose 174 mg/dL (74-99); Non-African American GFR(MDRD) >60 (>60 ml/min/1.73 sqM); Potassium 4.6 mmol/L (3.5-5.1); Sodium 135 mmol/L (137-145)
--- NOTE | 2017-01-08 10:31 | P.CONS ---
History of Present Illness - Reason for Consult Consult date: 01/08/17 Cirrhosis Requesting physician: Janes Blackman - History of Present Illness 46-year-old male with a history of alcohol cirrhosis portal hypertension ascites presents with shortness of breath lower extremity swelling and reported fever from homecare agency. T-max 100.5. Patient is receiving intravenous antibiotics for suspected pneumonia. Chest x-ray bilateral pleural effusions and atelectasis versus edema correlate to exclude pneumonia. Received intravenous diuretics with good response to lower extremity edema. He has a history of known cirrhosis recently evaluated at [facility] by Dr. Thuy Morocho and placed on transplantation protocol. Patient states he underwent paracentesis last week with less than a 1 L removal. Denies hematemesis hematochezia melena. Minimal abdominal discomfort nothing severe. Recently hospitalized a few weeks ago with acute renal failure and hyponatremia. He was advised to stop taking his diuretics by Dr. Morocho. Presently hemoglobin 8.9. White count 10.7. MCV 109. Platelet 391. Sodium 135. Total bilirubin, transaminases within normal limits. Alkaline phosphatase 232. Ammonia 32. Last alcohol drink Rhona 2016. Review of Systems Constitutional: Denies fever, chills, sweats, weight gain, or loss. HEENT: Negative for migraines, blurred vision or loss, earaches, drainage, tinnitus, oral mucosal lesions, dysphagia, or odynophagia. Cardiac: Open-heart surgery as a child secondary to trauma Negative for chest pain, arrhythmias, or palpitation. Respiratory: Nicotine cigarette dependency. Negative for shortness of breath, hemoptysis, cough, or sputum production. Gastrointestinal: See HPI for pertinent findings. Genitourinary: Negative for hematuria, urgency, frequency, polyuria, dysuria, or penile discharge. Musculoskeletal: Negative for muscle aches, swelling, arthritis, and arthralgias. Neurologic: Negative for stroke or TIA. Endocrine: Negative for thyroid problems. Skin: Negative for rash or itching. Psychiatric: Negative history for depression and anxiety All systems: negative (See HPI) Past Medical History Past Medical History: GERD/Reflux, Liver Disease Additional Past Medical History / Comment(s): back pain, cirrhosis, PANCAREATITIS History of Any Multi-Drug Resistant Organisms: None Reported Past Surgical History: Adenoidectomy, Back Surgery, Hernia Repair, Tonsillectomy Additional Past Surgical History / Comment(s): OPEN HEART SURGERY A CHILD FOR A PIECE OF GLASS LODGED IN HIS HEART, large volume Paracentesis, RT INGUINAL HERNIA Past Anesthesia/Blood Transfusion Reactions: No Reported Reaction Past Psychological History: No Psychological Hx Reported Additional Psychological History / Comment(s): 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 LIVES IN HOME WITH JARVIS. 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 NO HOSPITAL EQUIPMENT. HAS 3 STEPS INTO HOME- HOUSE IN ONE LEVEL. 2 INDOOR CATS. Smoking Status: Current some day smoker Past Alcohol Use History: None Reported, Daily Additional Past Alcohol Use History / Comment(s): STARTED SMOKING IN 1996, SMOKES 1PPD, PAST VENTURA ETOH-QUIT SEP 2016 Past Drug Use History: None Reported, Opiates Additional Drug Use History / Comment(s): previous opiate dependance, currently uses suboxone - Past Family History Father History Unknown: Yes Additional Family Medical History / Comment(s): HEALTHY Mother Family Medical History: Diabetes Mellitus Medications and Allergies Home Medications Medication Instructions Recorded Confirmed Type Buprenorphine HCl/Naloxone HCl 1 film SL BID 11/04/16 01/06/17 History [Suboxone 8 mg-2 mg Sl Film] Folic Acid 1 mg PO DAILY 11/27/16 01/06/17 History Modafinil [Provigil] 200 mg PO BID 12/16/16 01/06/17 History Allergies Allergy/AdvReac Type Severity Reaction Status Date / Time No Known Allergies Allergy Verified 01/06/17 17:02 Physical Exam Vitals: Vital Signs Temp Pulse Pulse Resp BP Pulse Ox 01/08/17 08:53 96 01/08/17 07:00 98.0 F 69 16 112/59 96 01/07/17 23:00 100.4 F H 90 17 100/62 95 01/07/17 17:30 97 01/07/17 15:00 100.0 F H 90 16 99/58 100 Intake and Output 01/07/17 01/08/17 01/08/17 22:59 06:59 14:59 Output Total 4 Balance -4 Output: Urine 4 Other: Voiding Method Urinal Urinal # Voids 1 2 1 Weight 91.7 kg General appearance: The patient is alert, oriented, in no acute distress. HET: Head is normocephalic and atraumatic. Pupils are equal and reactive. Oropharynx is clear without lesions. Neck: Supple without lymphadenopathy. Trachea midline. Heart: S1 S2. Regular rate and rhythm. Lungs: No crackles or wheezes are heard. Diminished in bases bilaterally. Abdomen: Soft, nontender, mildly distended with mild ascites with bowel sounds. No peritoneal signs. No palpable organomegaly or masses. Extremities: Normal skin color and turgor. No cyanosis, rash, ulceration, clubbing, or edema. Radial and pedal pulses are 2/4 bilaterally. Neurological: No focal deficits. Strength and sensation are grossly intact. Results CBC & Chem 7: 01/06/17 16:50 01/08/17 08:24 Labs: Abnormal Lab Results - Last 24 Hours (Table) 01/08/17 01/08/17 Range/Units 08:24 09:28 Sodium 135 L (137-145) mmol/L Chloride 96 L (98-107) mmol/L BUN 32 H (9-20) mg/dL Glucose 174 H (74-99) mg/dL Ammonia 32 H (<30) umol/L Microbiology - Last 24 Hours (Table) 01/06/17 19:04 Blood Culture - Preliminary Blood No Growth after 24 hours 01/06/17 18:53 Blood Culture - Preliminary Blood No Growth after 24 hours Assessment and Plan (1) Fever Narrative/Plan: Possible pneumonia however spontaneous bacterial peritonitis cannot be entirely excluded with recent paracentesis, mild leukocytosis and persistent low-grade temperature 100.5. Empirically receiving ceftriaxone which is appropriate for coverage of possible SBP. Status: Acute (2) Alcoholic cirrhosis of liver with ascites Status: Chronic (3) Bilateral pleural effusion Narrative/Plan: Possible pneumonia Status: Acute (4) Portal hypertension Status: Chronic (5) H/O ETOH abuse Status: Chronic (6) Hepatic encephalopathy Narrative/Plan: Mild hepatic encephalopathy without coma Status: Chronic Plan: 1. Continue with empiric antibiotics for suspected pneumonia possible SBP. Repeat CBC today. 2. Continue with lactulose 20 gm BID/TID titrate for 3 bowel movements daily. 3. Agree with low dose diuretics Aldactone/Lasix and with follow-up PCP after discharge for reevaluation. 4. Follow-up [facility] as advised. 5. Return to GI office January 20. 6. Discharge per medicine. We'll continue to follow with you. Thank you for this kind referral and the opportunity to participate in the care of your patient. This consultation was discussed with Dr. Peñaloza. The impression and plan of care have been directed as dictated.
[2017-01-08 10:41] LABS: Basophils % (A) 0 %; CH 33.6; CHCM 30.9; Eosinophils # (A) 0.1 k/uL (0-0.7); Eosinophils % (A) 1 %; HDW 2.63; HGB 8.9 gm/dL (13.0-17.5); Hypochromasia Moderate; Luc # (Auto) 0.32; Luc % (Auto) 3; Lymphocytes # (A) 0.6 k/uL (1.0-4.8); Lymphocytes % (A) 6 %; MCH 33.5 pg (25.0-35.0); MCHC 30.8 g/dL (31.0-37.0); MCV 108.8 fL (80.0-100.0); Macrocytosis Marked; Mean Platelet Volume 9.1; Monocytes # (A) 0.7 k/uL (0-1.0); Monocytes % (A) 7 %; Neutrophils # (A) 8.4 k/uL (1.3-7.7); Neutrophils % (A) 83 %; RBC 2.67 m/uL (4.30-5.90); RDW 14.5 % (11.5-15.5); WBC 10.1 k/uL (3.8-10.6); WBC (Perox) 10.93
[2017-01-08] MEDS: THIAMINE 100 MG TAB PO SCH (11:11)
[2017-01-08] MEDS: FOLIC ACID 1 MG TAB PO SCH (11:11)
--- NOTE | 2017-01-09 10:18 | DS ---
DATE OF ADMISSION: 01/06/2017 DATE OF DISCHARGE: 01/08/2017 FINAL DIAGNOSES: 1. Alcoholic cirrhosis. 2. Ascites from cirrhosis. 3. Possibly secondary portal hypertension. 4. Hypoalbuminemia from liver disease. 5. Right pleural effusion from fluid overload and also venous prominence on x-ray from underlying cirrhosis, present on admission. 6. Anemia. HOSPITAL COURSE: This patient presented with fluid overload. He was given IV Lasix and Aldactone. I was highly doubting that the patient had pneumonia and decided to stop the antibiotics on further consideration. The edema has greatly gone down. Care was discussed in detail with the patient and sister. The patient was seen by Dr. Grover Peñaloza. On exam, lungs fair air entry. Edema has gone down. BUN 32, creatinine 0.84. Discharge planning more than 35 minutes. DISCHARGE MEDICATIONS: 1. Suboxone 8/2 sublingual b.i.d. 2. Protonix 40 mg at breakfast. 3. Thiamine 100 mg p.o. daily. 4. Folic acid 1 mg p.o. daily. 5. Provigil 200 mg p.o. b.i.d. 6. Lactulose 20 grams p.o. t.i.d. 7. Lyrica 75 mg p.o. b.i.d. 8. Aldactone 50 mg p.o. daily. DIET: Low sodium diet, fluid restriction 1500 mL, daily weight to be taken. Follow up with Dr. Boo on 01/20/[address] Randhawa on 01/12/2017.
== END 2017-01-08 17:06 | disposition home or self-care (01) | DRG 432 ==
LOC: EC 15:36 → 4MS4W 18:23
PROVIDERS: ADMIT Hospitalist; ATTEND Hospitalist
DX: K70.31 Alcoholic cirrhosis of liver with ascites (principal); J18.9 Pneumonia, unspecified organism; K76.7 Hepatorenal syndrome; J90 Pleural effusion, not elsewhere classified; K76.6 Portal hypertension; K72.90 Hepatic failure, unspecified without coma; E87.70 Fluid overload, unspecified; E88.09 Other disorders of plasma-protein metabolism, not elsewhere classified; G62.9 Polyneuropathy, unspecified; D53.9 Nutritional anemia, unspecified; T21.04XA Burn of unspecified degree of lower back, initial encounter; F17.210 Nicotine dependence, cigarettes, uncomplicated; K21.9 Gastro-esophageal reflux disease without esophagitis; Z87.898 Personal history of other specified conditions; F11.21 Opioid dependence, in remission; Z79.899 Other long term (current) drug therapy
CPT/HCPCS: 36415; 71020; 80048; 80053; 81003; 82140; 83605; 85025; 87040; 87502; 93005; 94760; 96374; 99284; 99285

== ENCOUNTER 2017-01-12 13:10 | Inpatient (IN) | payer BC ==
[2017-01-12] MEDS ORDERED: KETOROLAC 30 MG/ML 1 ML VIAL IVP STA (13:40)
[2017-01-12] MEDS ORDERED: RX INFO: IV CONTRAST WAS GIVEN 1 EACH MISC MISCELLANE PRN (13:42)
[2017-01-12 14:10] LABS: Basophils % (A) 0 %; CH 33.4; CHCM 31.6; Eosinophils # (A) 0.1 k/uL (0-0.7); Eosinophils % (A) 1 %; HCT 25.5 % (39.0-53.0); HDW 2.68; HGB 8.1 gm/dL (13.0-17.5); Hypochromasia Slight; Luc # (Auto) 0.24; Luc % (Auto) 2; Lymphocytes # (A) 0.8 k/uL (1.0-4.8); Lymphocytes % (A) 6 %; MCH 33.6 pg (25.0-35.0); MCHC 31.8 g/dL (31.0-37.0); MCV 105.8 fL (80.0-100.0); Macrocytosis Moderate; Mean Platelet Volume 8.3; Monocytes # (A) 0.7 k/uL (0-1.0); Monocytes % (A) 5 %; Neutrophils # (A) 10.8 k/uL (1.3-7.7); Neutrophils % (A) 85 %; RBC 2.41 m/uL (4.30-5.90); WBC 12.7 k/uL (3.8-10.6); WBC (Perox) 13.52
--- NOTE | 2017-01-12 14:14 | ED ---
General Adult HPI - General Chief complaint: Fever Stated complaint: fever, pneumonia has liver problems Time Seen by Provider: 01/12/17 13:29 Source: patient, family Mode of arrival: wheelchair Limitations: no limitations - History of Present Illness Initial comments: This 46-year-old white male presents with a complaint of a fever of 100.6 at home. He has had some weakness as well as some shortness of breath. He has had a slight cough with brownish production. He relates that he was just discharged from the hospital 5 days ago after being admitted for pneumonia. He does complain of abdominal pain and distention. He has a history of liver failure with associated ascites. He states that he used to drink a lot of alcohol but stopped in September 2016. He's been feeling very jittery. He also quit tobacco 6 days ago. He relates that his abdomen hurts more in his lower abdomen bilaterally. He denies any frequency or dysuria or hematuria but has had some urgency at times. No other complaints or modifying factors. - Related Data Home Medications Medication Instructions Recorded Confirmed Buprenorphine HCl/Naloxone HCl 1 film SL BID 11/04/16 01/12/17 [Suboxone 8 mg-2 mg Sl Film] Folic Acid 1 mg PO DAILY 11/27/16 01/12/17 Modafinil [Provigil] 200 mg PO DAILY 12/16/16 01/12/17 Previous Rx's Medication Instructions Recorded Pantoprazole [Protonix] 40 mg PO AC-BRKFST #30 tablet. 11/06/16 Thiamine [Vitamin B-1] 100 mg PO DAILY #30 tab 11/06/16 Lactulose 20 gm PO TID #2700 ml 12/19/16 Pregabalin [Lyrica] 75 mg PO BID #60 cap 12/19/16 Spironolactone [Aldactone] 50 mg PO DAILY #30 tab 01/08/17 Allergies Allergy/AdvReac Type Severity Reaction Status Date / Time No Known Allergies Allergy Verified 01/12/17 13:45 Review of Systems ROS Statement: Those systems with pertinent positive or pertinent negative responses have been documented in the HPI. ROS Other: All systems not noted in ROS Statement are negative. Past Medical History Past Medical History: GERD/Reflux, Liver Disease Additional Past Medical History / Comment(s): back pain, cirrhosis, PANCAREATITIS History of Any Multi-Drug Resistant Organisms: None Reported Past Surgical History: Adenoidectomy, Back Surgery, Hernia Repair, Tonsillectomy Additional Past Surgical History / Comment(s): OPEN HEART SURGERY A CHILD FOR A PIECE OF GLASS LODGED IN HIS HEART, large volume Paracentesis, RT INGUINAL HERNIA Past Anesthesia/Blood Transfusion Reactions: No Reported Reaction Past Psychological History: No Psychological Hx Reported Additional Psychological History / Comment(s): 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 LIVES IN HOME WITH JARVIS. 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 NO HOSPITAL EQUIPMENT. HAS 3 STEPS INTO HOME- HOUSE IN ONE LEVEL. 2 INDOOR CATS. Smoking Status: Current some day smoker Past Alcohol Use History: None Reported, Daily Additional Past Alcohol Use History / Comment(s): STARTED SMOKING IN 1996, SMOKES 1PPD, PAST [place] ETOH-QUIT SEP 2016 Past Drug Use History: None Reported, Opiates Additional Drug Use History / Comment(s): previous opiate dependance, currently uses suboxone - Past Family History Father History Unknown: Yes Additional Family Medical History / Comment(s): HEALTHY Mother Family Medical History: Diabetes Mellitus General Exam - General Exam Comments Initial Comments: GENERAL: The patient is well nourished and well hydrated. VITAL SIGNS: Heart rate, blood pressure, respiratory rate reviewed as recorded in nurse's notes. EYES: Pupils are round and reactive. Extraocular movements are intact. No conjunctival / lid redness or swelling. ENT: No external evidence of injury, swelling, or ecchymosis. Airway is patent. Throat is clear. NECK: Nontender. No swelling or evidence of injury. No subcutaneous emphysema. Trachea is midline. No thyroid mass. HEART: Regular rate and rhythm. Good peripheral pulses. LUNGS/CHEST: Breath sounds clear and equal bilaterally. No rales, rhonchi, or wheezes. No ecchymosis, subcutaneous emphysema, or tenderness. ABDOMEN: There is mild diffuse tenderness worse in the lower abdomen bilaterally. There is significant ascites noted. No palpable masses or organomegaly. No peritoneal signs. No abdominal wall swelling or ecchymosis. EXTREMITIES: No extremity tenderness. Normal muscle tone and function. No thoracolumbar tenderness. NEUROLOGIC: Sensation is grossly intact. Cranial nerve exam reveals face is symmetrical, tongue is midline, speech is clear. SKIN: No abrasions or ecchymosis is noted. No induration or masses noted. PSYCHIATRIC: Alert and oriented. Appropriate behavior and judgment. Limitations: no limitations Course Vital Signs 01/12/17 01/12/17 01/12/17 13:21 13:35 13:54 Temperature 100.4 F H 97.8 F Pulse Rate 103 H 92 Respiratory 22 16 16 Rate Blood Pressure 90/54 119/57 O2 Sat by Pulse 90 L 98 Oximetry 01/12/17 15:14 Temperature 98.4 F Pulse Rate 81 Respiratory 16 Rate Blood Pressure 90/55 O2 Sat by Pulse 98 Oximetry Medical Decision Making - Medical Decision Making The patient was seen and examined. All diagnostics were reviewed. An IV is established. An EKG is done which shows a normal sinus rhythm at a rate of 77. There is no acute ST-T wave changes but there is low voltage noted. The MN interval is 180, the QRS duration is 110, and the QTc interval is 413. The patient also had a chest x-ray done which does show evidence of bilateral pleural effusions with the right side being worse. The possibility of some atelectasis versus infiltrate is contemplated per radiology. He also had a computed tomography scan of the abdomen and pelvis with IV contrast and this does show bilateral pleural effusions, cirrhosis, splenomegaly, chronic pancreatitis, and moderate walled epigastric fluid which is possibly related to a pseudocyst or walled off necrosis. The radiologist wants this to be correlated with necrotizing pancreatitis. This is fairly large measuring approximately 27 cm at the greatest dimension. The old records were reviewed. She has had multiple paracentesis in the past and they've never noted any evidence of subacute bacterial peritonitis per patient and family. He's never had a computed tomography scan of his abdomen and pelvis and there is no comparisons in regard to this walled off fluid. He does present with a fever which is low-grade and appears to be fairly persistent. The possibility of him having a necrotizing pancreatitis is possible. The possibility of a subacute bacterial peritonitis is possible. Is felt less likely pneumonia. He does have a temperature here of 100.6. His white count is slightly elevated at 12.7. Hemoglobin is low at 8.9 but is been chronically anemic. He has minor electrolyte abnormalities. He started on Rocephin. It is felt as though he would require admission and further specialty consultation. The case is discussed with Dr. Naranjo who is agreeable for admission and would like Dr. Peñaloza from GI to consult and Dr. Payton from surgery to consult. - Lab Data Result diagrams: 01/12/17 14:00 01/12/17 14:00 Lab Results 01/12/17 01/12/17 01/12/17 Range/Units 14:00 14:00 14:00 WBC 12.7 H (3.8-10.6) k/uL RBC 2.41 L (4.30-5.90) m/uL Hgb 8.1 L (13.0-17.5) gm/dL Hct 25.5 L (39.0-53.0) % MCV 105.8 H (80.0-100.0) fL MCH 33.6 (25.0-35.0) pg MCHC 31.8 (31.0-37.0) g/dL RDW 15.0 (11.5-15.5) % Plt Count 316 (150-450) k/uL Neutrophils % 85 % Lymphocytes % 6 % Monocytes % 5 % Eosinophils % 1 % Basophils % 0 % Neutrophils # 10.8 H (1.3-7.7) k/uL Lymphocytes # 0.8 L (1.0-4.8) k/uL Monocytes # 0.7 (0-1.0) k/uL Eosinophils # 0.1 (0-0.7) k/uL Basophils # 0.0 (0-0.2) k/uL Hypochromasia Slight Macrocytosis Moderate PT (9.0-12.0) sec INR (<1.1) APTT (22.0-30.0) sec Sodium 133 L (137-145) mmol/L Potassium 3.8 (3.5-5.1) mmol/L Chloride 95 L (98-107) mmol/L Carbon Dioxide 29 (22-30) mmol/L Anion Gap 9 mmol/L BUN 31 H (9-20) mg/dL Creatinine 0.81 (0.66-1.25) mg/dL Est GFR (MDRD) Af Amer >60 (>60 ml/min/1.73 sqM) Est GFR (MDRD) Non-Af >60 (>60 ml/min/1.73 sqM) Glucose 131 H (74-99) mg/dL Plasma Lactic Acid Abhijit (0.7-2.0) mmol/L Calcium 8.3 L (8.4-10.2) mg/dL Phosphorus 4.7 H (2.5-4.5) mg/dL Magnesium 2.1 (1.6-2.3) mg/dL Total Bilirubin 0.7 (0.2-1.3) mg/dL AST 22 (17-59) U/L ALT 23 (21-72) U/L Alkaline Phosphatase 190 H (38-126) U/L Ammonia (<30) umol/L Total Creatine Kinase <20 L (55-170) U/L CK-MB (CK-2) 0.5 (0.0-2.4) ng/mL CK-MB (CK-2) Rel Index 0.0 Troponin I <0.012 (0.000-0.034) ng/mL NT-Pro-B Natriuret Pep pg/mL Total Protein 5.2 L (6.3-8.2) g/dL Albumin 2.3 L (3.5-5.0) g/dL Amylase 37 (30-110) U/L Lipase 21 L (23-300) U/L 01/12/17 01/12/17 01/12/17 Range/Units 14:00 14:00 14:00 WBC (3.8-10.6) k/uL RBC (4.30-5.90) m/uL Hgb (13.0-17.5) gm/dL Hct (39.0-53.0) % MCV (80.0-100.0) fL MCH (25.0-35.0) pg MCHC (31.0-37.0) g/dL RDW (11.5-15.5) % Plt Count (150-450) k/uL Neutrophils % % Lymphocytes % % Monocytes % % Eosinophils % % Basophils % % Neutrophils # (1.3-7.7) k/uL Lymphocytes # (1.0-4.8) k/uL Monocytes # (0-1.0) k/uL Eosinophils # (0-0.7) k/uL Basophils # (0-0.2) k/uL Hypochromasia Macrocytosis PT 11.6 (9.0-12.0) sec INR 1.2 (<1.1) APTT 23.1 (22.0-30.0) sec Sodium (137-145) mmol/L Potassium (3.5-5.1) mmol/L Chloride (98-107) mmol/L Carbon Dioxide (22-30) mmol/L Anion Gap mmol/L BUN (9-20) mg/dL Creatinine (0.66-1.25) mg/dL Est GFR (MDRD) Af Amer (>60 ml/min/1.73 sqM) Est GFR (MDRD) Non-Af (>60 ml/min/1.73 sqM) Glucose (74-99) mg/dL Plasma Lactic Acid Abhijit 1.4 (0.7-2.0) mmol/L Calcium (8.4-10.2) mg/dL Phosphorus (2.5-4.5) mg/dL Magnesium (1.6-2.3) mg/dL Total Bilirubin (0.2-1.3) mg/dL AST (17-59) U/L ALT (21-72) U/L Alkaline Phosphatase (38-126) U/L Ammonia <9 (<30) umol/L Total Creatine Kinase (55-170) U/L CK-MB (CK-2) (0.0-2.4) ng/mL CK-MB (CK-2) Rel Index Troponin I (0.000-0.034) ng/mL NT-Pro-B Natriuret Pep 993 pg/mL Total Protein (6.3-8.2) g/dL Albumin (3.5-5.0) g/dL Amylase (30-110) U/L Lipase (23-300) U/L Disposition Clinical Impression: Abdominal pain, Ascites, Anemia, Alcoholic cirrhosis of liver with ascites, Portal hypertension, H/O ETOH abuse, Bilateral pleural effusion, Fever, Hyponatremia, Dyspnea, Pancreatic pseudocyst, Hypoxia, Hypochloremia Disposition: ADMITTED IP TO THIS [facility] Condition: Fair Time of Disposition: 16:11 Decision Date: 01/12/17 Decision Time: 16:11
[2017-01-12 14:17] LABS: INR 1.2 (<1.1); Partial Thromboplastin Time 23.1 sec (22.0-30.0); Prothrombin Time 11.6 sec (9.0-12.0)
[2017-01-12 14:22] LABS: ALT 23 U/L (21-72); AST 22 U/L (17-59); Alkaline Phosphatase 190 U/L (38-126); Ammonia <9 umol/L (<30); Amylase 37 U/L (30-110); Anion Gap 9 mmol/L; Blood Urea Nitrogen 31 mg/dL (9-20); Calcium 8.3 mg/dL (8.4-10.2); Carbon Dioxide 29 mmol/L (22-30); Chloride 95 mmol/L (98-107); Glucose 131 mg/dL (74-99); Magnesium 2.1 mg/dL (1.6-2.3); Non-African American GFR(MDRD) >60 (>60 ml/min/1.73 sqM); Phosphorous 4.7 mg/dL (2.5-4.5); Potassium 3.8 mmol/L (3.5-5.1); Sodium 133 mmol/L (137-145); Total Bilirubin 0.7 mg/dL (0.2-1.3); Total Protein 5.2 g/dL (6.3-8.2)
[2017-01-12 14:30] LABS: Creatine Kinase <20 U/L (55-170)
[2017-01-12 14:42] LABS: Creatine Kinase MB 0.5 ng/mL (0.0-2.4); Troponin I <0.012 ng/mL (0.000-0.034)
--- NOTE | 2017-01-12 14:43 | CT ---
EXAMINATION TYPE: CT abdomen pelvis w con DATE OF EXAM: 01/12/2017 2:32 PM COMPARISON: NONE HISTORY: Abdomen distention and discomfort, history of cirrhosis with recent paracentesis January 01 CT DLP: 1611.7 mGycm, Automated Exposure Control for Dose Reduction was Utilized. CONTRAST: CT scan of the abdomen and pelvis is performed without oral but with IV Contrast, patient injected wi th 100 mL of Omnipaque 300. FINDINGS: LUNG BASES: There is small left pleural effusion. There is moderate to large size right pleural effus ion. There is associated compressive atelectasis. Bilateral gynecomastia is noted. LIVER/GB: Liver is somewhat small in size and heterogeneous in appearance. There is distended gallbla dder. PANCREAS: Generalized atrophy of pancreas is seen with relative sparing of the tail. Superior to panc reas with mass effect on decompressed stomach there is a thin-walled fluid collection measuring appro ximately 9.5 cm transversely by 12 cm in anterior posterior dimension on axial image 27 x 7 cm in crane service technician niocaudal dimension. SPLEEN: Splenomegaly is seen measuring 14.6 cm on long axis on axial image 27. ADRENALS: No significant abnormality is seen. KIDNEYS: No significant abnormality is seen. BOWEL: Evaluation bowel is suboptimal due to lack of enteric contrast. Stomach is decompressed. There is no suspicious small or large bowel dilatation seen. Scattered colonic diverticula are present. PROSTATE/SEMINAL VESICLES: No gross abnormality seen. LYMPH NODES: No greater than 1cm abdominal or pelvic lymph nodes are appreciated. OSSEOUS STRUCTURES: There is disc space narrowing with vacuum disc phenomenon at the lumbosacral junc tion. OTHER: There are small to moderate amount of abdominal and pelvic fluid or ascites. IMPRESSION: 1. Small to moderate amount of abdominal and pelvic ascites with small left pleural effusion. Moderat e to large right-sided pleural effusion is noted. 2. Cirrhosis with splenomegaly noted. 3. Fairly atrophic pancreas consistent with chronic pancreatitis. Moderate walled epigastric fluid co llection is consistent with pseudocyst or walled off necrosis, clinical correlation for symptoms rela deonte to acute or necrotizing pancreatitis is advised.
--- NOTE | 2017-01-12 15:00 | XR ---
EXAMINATION TYPE: XR chest 2V DATE OF EXAM: 01/12/2017 2:42 PM COMPARISON: Chest x-ray January 07, 2017. HISTORY: Weakness and fever. TECHNIQUE: Frontal and lateral views of the chest are obtained. FINDINGS: There is elevated right hemidiaphragm. There is persistent small to moderate size bilatera l pleural effusions. There is right basilar atelectasis and/or infiltrate. Cardiac blood size is stab le and within normal limits. Intracardiac opacity suggests hiatal hernia. Upper lungs are clear witho ut pneumothorax. Multilevel spurring in the thoracic spine is noted. IMPRESSION: Small to moderate right greater than left pleural effusions with right basilar atelectas is and/or infiltrate all redemonstrated.
[2017-01-12] MEDS ORDERED: NICOTINE 21MG/24HR PATCH TRANSDERM STA (16:01)
[2017-01-12] MEDS ORDERED: ACETAMINOPHEN TAB 325 MG TAB PO PRN (16:11)
[2017-01-12] MEDS ORDERED: ONDANSETRON 4 MG/2 ML VIAL IVP PRN (16:11)
[2017-01-12] MEDS ORDERED: NALOXONE 0.4 MG/ML 1 ML VIAL IV PRN (16:11)
[2017-01-12] MEDS: SODIUM CHLORIDE 0.9% 1,000 ML IV SCH (16:43)
[2017-01-12] MEDS ORDERED: HYDROmorphone 1 MG/ML 1 ML SYRINGE IVP PRN (18:18)
[2017-01-12 19:56] LABS: Appearance,Urine Clear (Clear); Bilirubin,Urine Negative (Negative); Glucose,Urine (UA) Negative (Negative); Ketones,Urine Negative (Negative); Leukocyte Esterase,Urine Negative (Negative); Nitrite,Urine Negative (Negative); PH, Urine 5.5 (5.0-8.0); Protein,Urine Trace (Negative); Specific Gravity,Urine 1.041 (1.001-1.035); UA Billing (MACRO vs. MICRO) CHEM; Urobilinogen,Urine <2.0 mg/dL (<2.0)
[2017-01-12] MEDS: PREGABALIN 75 MG CAP PO SCH (20:21)
[2017-01-12] MEDS: MELATONIN 3 MG TABLET PO SCH (20:21)
[2017-01-12] MEDS: LACTULOSE 20 GM/30 ML CUP PO SCH (21:26)
--- NOTE | 2017-01-13 07:28 | P.PN ---
Progress Note - Text Patient seen and evaluated. Please see full dictated consultation. Patient recently discharged with known history of abdominal ascites. Abdominal pain consistent with increased abdominal ascites. Will benefit from urgent paracentesis. We'll follow.
[2017-01-13] MEDS ORDERED: ENOXAPARIN 40 MG/0.4 ML SYRINGE SQ SCH (09:00)
[2017-01-13] MEDS ORDERED: PANTOPRAZOLE 40 MG/10 ML VIAL IV SCH (09:00)
[2017-01-13] MEDS ORDERED: SPIRONOLACTONE 25 MG TAB PO SCH (09:00)
[2017-01-13] MEDS: LACTULOSE 20 GM/30 ML CUP PO SCH ×3 (09:15→21:34)
[2017-01-13] MEDS: THIAMINE 100 MG TAB PO SCH (09:15)
[2017-01-13] MEDS: FOLIC ACID 1 MG TAB PO SCH (09:15)
[2017-01-13] MEDS: PREGABALIN 75 MG CAP PO SCH ×3 (09:15→21:34)
[2017-01-13 09:41] LABS: Basophils % (A) 0 %; CH 33.3; CHCM 31.8; Eosinophils # (A) 0.2 k/uL (0-0.7); Eosinophils % (A) 2 %; HCT 23.7 % (39.0-53.0); HDW 2.65; HGB 7.5 gm/dL (13.0-17.5); Hypochromasia Slight; Luc # (Auto) 0.19; Luc % (Auto) 2; Lymphocytes # (A) 0.7 k/uL (1.0-4.8); Lymphocytes % (A) 8 %; MCHC 31.6 g/dL (31.0-37.0); MCV 104.6 fL (80.0-100.0); Macrocytosis Moderate; Mean Platelet Volume 7.8; Monocytes # (A) 0.6 k/uL (0-1.0); Monocytes % (A) 7 %; Neutrophils # (A) 7.1 k/uL (1.3-7.7); Neutrophils % (A) 80 %; RBC 2.27 m/uL (4.30-5.90); RDW 15.3 % (11.5-15.5); WBC 8.9 k/uL (3.8-10.6); WBC (Perox) 9.52
[2017-01-13 09:46] VITALS: BMI 24.0
--- NOTE | 2017-01-13 09:52 | P.CONS ---
History of Present Illness - Reason for Consult Consult date: 01/13/17 fever abdominal pain Requesting physician: Sarah Naranjo - History of Present Illness 46-year-old male with a history of alcohol cirrhosis portal hypertension ascites admitted last week with shortness of breath lower extremity swelling and reported fever from homecare agency. T-max 100.5. Patient received intravenous antibiotics Rocephin for suspected pneumonia possible SBP. Chest x- ray bilateral pleural effusions and atelectasis versus edema correlate to exclude pneumonia. Received intravenous diuretics with good response to lower extremity edema. He has a history of known cirrhosis recently evaluated at [facility] system by Dr. Thuy Morocho and placed on transplantation protocol. Patient states he underwent paracentesis 10 days ago with less than a 1 L removal. Denies hematemesis hematochezia melena. Upper abdominal discomfort mostly in the midepigastrium and right lower quadrant nothing severe. Additionally he was hospitalized 3 weeks ago with acute renal failure, hepatorenal syndrome, and hyponatremia. He was advised to stop taking his diuretics by [facility] hepatobiliary specialist Dr. Morocho. He was discharged Thursday without antibiotics pneumonia was felt to be less likely. He returned yesterday with reported fevers and abdominal discomfort. T -max 100.4. CT abdomen and pelvis with IV contrast only reported superior to the pancreas mass effect and decompressed stomach with a thin wall fluid collection measuring 9.5 cm transversely by 12 cm in the anterior portion. 27 x 7 cm in craniocaudal dimension. Fluid consistent with pseudocyst are walled off necrosis clinical correlation for symptoms related to acute necrotizing pancreatitis. Cirrhosis with splenomegaly. Moderate amount of abdominopelvic ascites. Large right-sided pleural effusion. White count 12.7. Hemoglobin 8.1 plan a 316. INR 1.2. BUN 31 creatinine 0.8. Lipase 21 amylase 37. Total bilirubin AST ALT within normal limits. Alkaline phosphatase 190. Ammonia less than 9. Review of Systems Constitutional: Denies fever, chills, sweats, weight gain, or loss. HEENT: Negative for migraines, blurred vision or loss, earaches, drainage, tinnitus, oral mucosal lesions, dysphagia, or odynophagia. Cardiac: Open-heart surgery as a child secondary to trauma Negative for chest pain, arrhythmias, or palpitation. Respiratory: Nicotine cigarette dependency. Negative for shortness of breath, hemoptysis, cough, or sputum production. Gastrointestinal: See HPI for pertinent findings. Genitourinary: Negative for hematuria, urgency, frequency, polyuria, dysuria, or penile discharge. Musculoskeletal: Negative for muscle aches, swelling, arthritis, and arthralgias. Neurologic: Negative for stroke or TIA. Endocrine: Negative for thyroid problems. Skin: Negative for rash or itching. Psychiatric: Negative history for depression and anxiety All systems: negative Past Medical History Past Medical History: GERD/Reflux, Liver Disease, Pneumonia Additional Past Medical History / Comment(s): back pain,ascities, cirrhosis, pancreatitis, pleural effusions. History of Any Multi-Drug Resistant Organisms: None Reported Past Surgical History: Adenoidectomy, Back Surgery, Hernia Repair, Tonsillectomy Additional Past Surgical History / Comment(s): OPEN HEART SURGERY A CHILD FOR A PIECE OF GLASS LODGED IN HIS HEART, large volume Paracentesis, RT INGUINAL HERNIA Past Anesthesia/Blood Transfusion Reactions: No Reported Reaction Past Psychological History: No Psychological Hx Reported Additional Psychological History / Comment(s): 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 LIVES IN HOME WITH JARVIS. 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 NO HOSPITAL EQUIPMENT. HAS 3 STEPS INTO HOME- HOUSE IN ONE LEVEL. 2 INDOOR CATS. Smoking Status: Former smoker Past Alcohol Use History: None Reported, Daily Additional Past Alcohol Use History / Comment(s): STARTED SMOKING IN 1996, SMOKED 1PPD QUIT 01/07/17, PAST DAILY ETOH-QUIT SEP 2016 Past Drug Use History: Opiates Additional Drug Use History / Comment(s): previous opiate dependance, currently uses suboxone - Past Family History Father History Unknown: Yes Additional Family Medical History / Comment(s): HEALTHY Mother Family Medical History: Diabetes Mellitus Medications and Allergies Home Medications Medication Instructions Recorded Confirmed Type Buprenorphine HCl/Naloxone HCl 1 film SL BID 11/04/16 01/12/17 History [Suboxone 8 mg-2 mg Sl Film] Folic Acid 1 mg PO DAILY 11/27/16 01/12/17 History Modafinil [Provigil] 200 mg PO DAILY 12/16/16 01/12/17 History Allergies Allergy/AdvReac Type Severity Reaction Status Date / Time No Known Allergies Allergy Verified 01/12/17 13:45 Physical Exam Vitals: Vital Signs Temp Pulse Pulse Resp BP BP Pulse Ox 01/13/17 07:00 97.4 F L 86 20 92/62 91 L 01/12/17 23:00 97.3 F L 75 18 98/60 96 01/12/17 17:31 15 01/12/17 16:50 98.3 F 75 15 98/63 96 Intake and Output 01/12/17 01/13/17 01/13/17 22:59 06:59 14:59 Intake Total 325 100 Output Total 800 Balance -475 100 Intake: Oral 325 100 Output: Urine 800 Other: Voiding Method Toilet # Voids 1 Weight 92 kg General appearance: The patient is alert, oriented, in no acute distress. HET: Head is normocephalic and atraumatic. Pupils are equal and reactive. Oropharynx is clear without lesions. Neck: Supple without lymphadenopathy. Trachea midline. Heart: S1 S2. Regular rate and rhythm. Lungs: Diminished bilaterally greater on right than left. Abdomen: Soft, tenderness midepigastrium and right lower abdomen with distention and moderate ascites. No peritoneal signs. No palpable organomegaly or masses. Extremities: Normal skin color and turgor. No cyanosis, rash, ulceration, clubbing, or edema. Radial and pedal pulses are 2/4 bilaterally. Neurological: No focal deficits. Strength and sensation are grossly intact. Results CBC & Chem 7: 01/14/17 08:55 01/14/17 08:55 Labs: Abnormal Lab Results - Last 24 Hours (Table) 01/12/17 Range/Units 19:21 Ur Specific [place] 1.041 H (1.001-1.035) Urine Protein Trace H (Negative) Microbiology - Last 24 Hours (Table) 01/12/17 19:21 Urine Culture - Preliminary Urine,Voided CT scan - abdomen: report reviewed CT scan - pelvis: report reviewed (Reviewed by Dr. Boo) Assessment and Plan (1) Fever Narrative/Plan: Suspect peritonitis possible SBP possible infected pseudocyst possible walled off necrosis with underlying chronic pancreatitis. Status: Acute (2) Ascites Status: Acute (3) Abdominal pain Status: Acute (4) Alcoholic liver disease Status: Acute (5) ETOH abuse Status: Acute (6) Portal hypertension Status: Acute (7) Pleural effusion on right Narrative/Plan: Possible hydrothorax Status: Acute (8) Chronic alcoholic pancreatitis Status: Chronic Plan: 1. Diagnostic paracentesis with fluid cultures. 2. General surgery and infectious disease consultation. 3. Case was discussed with Dr. Payton general surgery will proceed with paracentesis today. She advises not to proceed with diagnostic sampling of pseudocyst fluid secondary to increased risk peritoneal contamination. 4. IV antibiotics. 5. Diuretics Lasix 40 mg daily. Aldactone 100 mg daily. Monitor BUN/ creatinine daily. 6. Low-salt diet. Thank you for this kind referral and the opportunity to participate in the care of your patient. This consultation was discussed with Dr. Boo. The impression and plan of care have been directed as dictated.
[2017-01-13] MEDS: MODAFINIL 200 MG TAB PO SCH (09:58)
--- NOTE | 2017-01-13 10:03 | HP ---
DATE OF ADMISSION: DATE OF SERVICE: 01/12/2017 CHIEF COMPLAINT: Abdominal pain and distention. HISTORY OF PRESENT ILLNESS: This 46-year-old gentleman with the past medical history of multiple medical problems including history of GERD, history of liver disease, history pneumonia, history of back pain, ascites, cirrhosis, pancreatitis, pleural effusion, adenoidectomy, back surgery, hernia repair, tonsillectomy, being followed by Dr. Randhawa in the outpatient setting, was admitted with abdominal distention and pain. Pain is essentially in the lower part of the abdomen. The patient had multiple paracentesis and recent paracentesis did not much fluid according to him. The patient was running some fever also. Occasional cough was reported. A CAT of the abdomen was done in the ER showed small to moderate amount of abdominal pelvic ascites with small pleural effusion moderate large right sided pleural effusion, cirrhosis, splenomegaly, fairly atrophy of the pancreas consistent with chronic pancreatitis, moderate walled epigastric fluid collections consistent with cirrhosis or walled off necrosis. Consultation with Dr. Payton has been sought at this time. Otherwise, the patient admitted for further evaluation. Empiric antibiotics are initiated. WBC 12.7, hemoglobin is 8.1 and albumin is 2.3. PAST MEDICAL HISTORY: History of GERD, liver disease, history of back pain, adenoidectomy, back surgery, hernia repair, tonsillectomy. Medications prior to admission include home medications: 1. Vitamin B1, 100 mg p.o. daily. 2. Aldactone 50 mg p.o. daily. 3. Lyrica 75 p.o. b.i.d. 4. Protonix 40 mg a.c. breakfast. 5. Provigil 200 mg p.o. daily. 6. Lactulose 20 grams p.o. t.i.d. 7. Folic acid 1 mg p.o. daily. 8. Suboxone 8/2 film, sublingual b.i.d. ALLERGIES: None. FAMILY HISTORY: History of diabetes mellitus in the family. SOCIAL HISTORY: Previous history of smoking. No history of alcohol intake. REVIEW OF SYSTEMS: ENT: No diminishing hearing or diminished vision. CARDIOVASCULAR: No angina. RESPIRATORY: No cough. GI: As mentioned earlier. : No dysuria. NERVOUS SYSTEM: No numbness or weakness. ALLERGY/IMMUNOLOGY: No asthma or hayfever. MUSCULOSKELETAL: As mentioned earlier. HEMATOLOGY/ONCOLOGY: No history of anemia. ENDOCRINE: No history of diabetes or hypothyroidism. CONSTITUTIONAL: As mentioned earlier. DERMATOLOGY: Negative. RHEUMATOLOGY: Negative. PSYCHIATRY: As mentioned earlier. PHYSICAL EXAMINATION: The patient is alert and oriented x3. Pulse is 75, blood pressure 98/60, respiration 18, temperature 98.3, pulse ox 96% on 2 L. HEENT: Conjunctivae normal. Oral mucosa moist. NECK: No jugular venous distention. No carotid bruit. No lymph node enlargement. CARDIOVASCULAR: S1 and S2, muffled. No S3, no S4. RESPIRATORY: Breath sounds diminished at the bases. A few scattered rhonchi and crackles. ABDOMEN: Soft, obese. Ascites present. Minimal discomfort, otherwise, no guarding, no rigidity, no mass palpable. shifting dullness present. LEGS: Minimal edema bilateral. NERVOUS SYSTEM: Higher function as mentioned. Moves all 4 limbs. LYMPHATICS: No lymphadenopathy of neck, axillae or groin. SKIN: No ulcers, rashes or bleeding. JOINTS: No deforming arthropathy. Generalized emaciation present. LABS: WBC 12.7, hemoglobin is 8.1. Glucose 131. Phosphorus 4.7 and albumin is 2.3. ASSESSMENT: 1. Abdominal distention with ascites with abdominal pain and fever; rule out peritonitis, spontaneous bacterial peritonitis. 2. Increased WBC. 3. Anemia, macrocytic secondary to cirrhosis of the liver. 4. Cirrhosis of the liver, possibly secondary to EtOH. 5. Hyponatremia secondary to hypovolemia. 6. Increased random blood sugar. 7. Hypocalcemia, mild. 8. Hypoalbuminemia with mild to moderate protein calorie malnutrition. 9. History of chronic liver disease. 10. History of pneumonia. 11. History of back pain. 12. History of recurrent ascites. 13. History of chronic pancreatitis. 14. Possible pancreatic pseudocyst. 15. Pleural effusion. 16. Back surgery and degenerative joint disease. 17. History of hernia repair. 18. Remote history nicotine dependence. 19. History of EtOH. 20. FULL CODE. RECOMMENDATIONS AND DISCUSSION: This 46-year-old gentleman who presented with multiple complex medical issues, we will monitor the patient closely, continue the current medications. I will obtain cultures, empiric antibiotics. Resume the home medications. Otherwise, I would also recommend consultation and possible ascitic aspiration for both therapeutic and diagnostic purposes. Surgery will be consulted as mentioned earlier with the evaluation of abnormal cyst and abdominal pain and other features. Otherwise, dietitian also will be consulted for evaluation. Gastroenterology will monitor the liver functions. Otherwise, the prognosis is guarded, which I discussed at length with the patient's family, understands and agrees. A copy forwarded to Dr. Randhawa who is the primary physician. CLARE
[2017-01-13 10:20] LABS: Anion Gap 10 mmol/L; Blood Urea Nitrogen 25 mg/dL (9-20); Calcium 8.1 mg/dL (8.4-10.2); Carbon Dioxide 28 mmol/L (22-30); Chloride 97 mmol/L (98-107); Glucose 123 mg/dL (74-99); Non-African American GFR(MDRD) >60 (>60 ml/min/1.73 sqM); Sodium 135 mmol/L (137-145)
[2017-01-13] MEDS: SODIUM CHLORIDE 0.9% 1,000 ML IV SCH (10:44)
--- NOTE | 2017-01-13 12:58 | P.CONS ---
History of Present Illness - Reason for Consult Consult date: 01/13/17 - Chief Complaint Ascites - History of Present Illness 46-year-old male presents to hospital with increasing ascites increasing weakness, some lower extremity edema and fever. The patient has a very pertinent recent history that he was hospital was at her facility approximately 3 weeks prior which point in time he had hepatorenal syndrome with acute renal failure. He is now being followed by [facility] (formerly [facility] Dr. Neha Morocho and is being monitored for the transplant protocol due to his cirrhosis and extensive liver disease. He was treated at facility and then discharged home until the above symptoms resulting in his readmission here. He did have a paracentesis of about a liter the last time it was performed no notation of any infection is related. And at discharge was not on antibiotic therapy. Upon arrival the patient has computed tomography scan was abnormal and pelvis performed that shows evidence of the thin wall fluid collection approximate 9.5 x 12 cm that is superior to the pancreas and causing some mass effect on the stomach even. Patient also has ascites. There is evidence also of a right- sided pleural effusion. An atrophic pancreas was seen in concern for pseudocyst. With concerns for peritonitis because of his fever the infectious diseases consultation was requested. Review of Systems HEENT:Denies headache or acute visual change. Denies sinus or mouth discomforts. Denies neck stiffness or pain. Denies significant oral cavity pain. Denies difficulty on swallowing. Lungs: Denies significant shortness of breath, cough, sputum production, or hemoptysis. Cardiovascular: Denies significant shortness of breath, chest pain, chest wall pain, orthopnea, dyspnea on exertion, syncope Gastrointestinal: Anorexia with significant distention to his abdomen. Poor appetite without nausea or emesis melena or hematochezia hematemesis Musculoskeletal: denies significant myalgias or arthralgias. No new joint swelling. Denies new back pain. Skin: Denies new rash or lesions. No new ulcers or wounds are related.. Neuro: Denies headache or visual change. Denies any new onset weakness or difficulty with ambulation. Denies falls or seizures. Psychiatric: Mood is poor due to his declining health status and young age Endocrine: Worsening fatigue profound weight loss over time Past Medical History Past Medical History: GERD/Reflux, Liver Disease, Pneumonia Additional Past Medical History / Comment(s): back pain,ascities, cirrhosis, pancreatitis, pleural effusions. History of Any Multi-Drug Resistant Organisms: None Reported Past Surgical History: Adenoidectomy, Back Surgery, Hernia Repair, Tonsillectomy Additional Past Surgical History / Comment(s): OPEN HEART SURGERY A CHILD FOR A PIECE OF GLASS LODGED IN HIS HEART, large volume Paracentesis, RT INGUINAL HERNIA Past Anesthesia/Blood Transfusion Reactions: No Reported Reaction Past Psychological History: No Psychological Hx Reported Additional Psychological History / Comment(s): 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 LIVES IN HOME WITH JARVIS. 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 NO HOSPITAL EQUIPMENT. HAS 3 STEPS INTO HOME- HOUSE IN ONE LEVEL. 2 INDOOR CATS. No international travel. One child who lives at home with him and does help. Stopped smoking approximately a month ago understands importance of smoking cessation for his transplant workup. Alcohol apparently stopped last year. Family relates that there was extensive binge drinking Smoking Status: Former smoker Past Alcohol Use History: None Reported, Daily Additional Past Alcohol Use History / Comment(s): STARTED SMOKING IN 1996, SMOKED 1PPD QUIT 01/07/17, PAST DAILY ETOH-QUIT SEP 2016 Past Drug Use History: Opiates Additional Drug Use History / Comment(s): previous opiate dependance, currently uses suboxone - Past Family History Father History Unknown: Yes Additional Family Medical History / Comment(s): HEALTHY Mother Family Medical History: Diabetes Mellitus Medications and Allergies Home Medications and Allergies Comment(s): Current Medications Acetaminophen (Tylenol Tab) 650 mg PO Q6HR PRN PRN Reason: Mild Pain or Fever > 100.5 Folic Acid (Folic Acid) 1 mg PO DAILY [facility] Last Admin: 01/13/17 09:15 Dose: Not Given Furosemide (Lasix) 40 mg PO DAILY [facility] Hydromorphone HCl (Dilaudid) 0.5 mg IVP Q6HR PRN PRN Reason: Pain Sodium Chloride (Saline 0.9%) 1,000 mls @ 60 mls/hr IV .[id number] [facility] Last Admin: 01/13/17 10:44 Dose: 60 mls/hr Ceftriaxone Sodium 1,000 mg/ (Sodium Chloride) 50 mls @ 100 mls/hr IVPB DAILY [facility] Last Admin: 01/13/17 09:58 Dose: 100 mls/hr Lactulose (Cephulac) 20 gm PO TID [facility] Last Admin: 01/13/17 09:15 Dose: Not Given Melatonin (Melatonin) 3 mg PO HS [facility] Last Admin: 01/12/17 20:21 Dose: Not Given Miscellaneous Information (Rx Info: Iv Contrast Was Given) 1 each MISCELLANE DAILY PRN PRN Reason: Per Protocol Stop: 01/14/17 13:42 Last Admin: 01/12/17 14:24 Dose: 1 each Modafinil (Provigil) 200 mg PO DAILY [facility] Last Admin: 01/13/17 09:58 Dose: 200 mg Naloxone HCl (Narcan) 0.2 mg IV Q2M PRN PRN Reason: Opioid Reversal Non-Formulary Medication (Buprenorphine Hcl/Naloxone Hcl [Suboxone 8 Mg-2 Mg Sl Film]) 1 film SL BID [facility] Ondansetron HCl (Zofran) 4 mg IVP Q8HR PRN PRN Reason: Nausea And Vomiting Pantoprazole Sodium (Protonix) 40 mg IV DAILY [facility] Stop: 01/13/17 23:00 Last Admin: 01/13/17 11:38 Dose: 40 mg Pantoprazole Sodium (Protonix) 40 mg PO [facility] Pregabalin (Lyrica) 75 mg PO BID [facility] Last Admin: 01/13/17 09:15 Dose: Not Given Spironolactone (Aldactone) 100 mg PO DAILY [facility] Thiamine HCl (Vitamin B-1) 100 mg PO DAILY [facility] Last Admin: 01/13/17 09:15 Dose: Not Given Home Medications Medication Instructions Recorded Confirmed Type Buprenorphine HCl/Naloxone HCl 1 film SL BID 11/04/16 01/12/17 History [Suboxone 8 mg-2 mg Sl Film] Folic Acid 1 mg PO DAILY 11/27/16 01/12/17 History Modafinil [Provigil] 200 mg PO DAILY 12/16/16 01/12/17 History Allergies Allergy/AdvReac Type Severity Reaction Status Date / Time No Known Allergies Allergy Verified 01/12/17 13:45 Physical Exam Vitals: Vital Signs Temp Pulse Pulse Resp BP BP Pulse Ox 01/13/17 12:22 98.2 F 83 20 101/73 91 L 01/13/17 08:00 20 01/13/17 07:00 97.4 F L 86 20 92/62 91 L 01/12/17 23:00 97.3 F L 75 18 98/60 96 01/12/17 17:31 15 01/12/17 16:50 98.3 F 75 15 98/63 96 Intake and Output 01/12/17 01/13/17 01/13/17 22:59 06:59 14:59 Intake Total 325 100 410 Output Total 800 250 Balance -475 100 160 Intake: Intake, IV Titration 170 Amount Sodium Chloride 0.9% 1, 120 000 ml @ 60 mls/hr IV . [id number] [facility] Rx#:[id number] cefTRIAXone 1,000 mg In 50 Sodium Chloride 0.9% 50 ml @ 100 mls/hr IVPB DAILY [facility] Rx#:[id number] Oral 325 100 240 Output: Urine 800 250 Other: Voiding Method Toilet Toilet Urinal # Voids 1 Weight 92 kg 92 kg Patient Weight 01/14/17 06:59 Weight 92 kg 46-year-old male who looks much older than his stated age. He is 6 foot 5 and has evidence of cachexia and muscle wasting but has significant ascites HEENT: Anicteric conjunctiva are pink and moist nasal mucosa grossly intact without significant lesions, there is no thrush. Poor dentition Neck: The neck is supple without significant lymphadenopathy or thyromegaly. Lungs: The metrical air entry is noted. Basilar crackles are heard. Expiratory wheezes are heard. No bronchial sounds are noted. Heart: Regular rate and rhythm with an audible S1-S2, no S3 no S4. There is no significant murmur click or rub, PMI was nondisplaced. Abdomen: Positive bowel sounds are noted. There is evidence of distinct ascites. He is a palpated fluid wave is noted. Liver edge is palpable 4 cm below the right costal margin. Spleen is nonpalpable. Abdomen is nonrigid. It does have some mild diffuse tenderness especially in the right upper and right lower quadrants Extremities: The extremities have adequate pulses 2+ and symmetric, there is extensive muscular wasting. There is no evidence of any lesions on the upper or lower extremities. Neuro: Awake alert oriented to person place and time. There are no acute new gross focal sensory motor deficits. He over does appear to be chronically ill Results CBC & Chem 7: 01/13/17 09:00 01/13/17 09:00 Labs: Abnormal Lab Results - Last 24 Hours (Table) 01/12/17 01/13/17 01/13/17 Range/Units 19:21 09:00 09:00 RBC 2.27 L (4.30-5.90) m/uL Hgb 7.5 L (13.0-17.5) gm/dL Hct 23.7 L (39.0-53.0) % MCV 104.6 H (80.0-100.0) fL Lymphocytes # 0.7 L (1.0-4.8) k/uL Sodium 135 L (137-145) mmol/L Chloride 97 L (98-107) mmol/L BUN 25 H (9-20) mg/dL Glucose 123 H (74-99) mg/dL Calcium 8.1 L (8.4-10.2) mg/dL Ur Specific Cunningham 1.041 H (1.001-1.035) Urine Protein Trace H (Negative) Microbiology - Last 24 Hours (Table) 01/12/17 19:21 Urine Culture - Preliminary Urine,Voided Laboratory Results WBC 8.9 k/uL (3.8-10.6) 01/13/17 09:00 RBC 2.27 m/uL (4.30-5.90) L 01/13/17 09:00 Hgb 7.5 gm/dL (13.0-17.5) L 01/13/17 09:00 Hct 23.7 % (39.0-53.0) L 01/13/17 09:00 MCV 104.6 fL (80.0-100.0) H 01/13/17 09:00 MCH 33.0 pg (25.0-35.0) 01/13/17 09:00 MCHC 31.6 g/dL (31.0-37.0) 01/13/17 09:00 RDW 15.3 % (11.5-15.5) 01/13/17 09:00 Plt Count 306 k/uL (150-450) 01/13/17 09:00 Neutrophils % 80 % 01/13/17 09:00 Lymphocytes % 8 % 01/13/17 09:00 Monocytes % 7 % 01/13/17 09:00 Eosinophils % 2 % 01/13/17 09:00 Basophils % 0 % 01/13/17 09:00 Neutrophils # 7.1 k/uL (1.3-7.7) 01/13/17 09:00 Lymphocytes # 0.7 k/uL (1.0-4.8) L 01/13/17 09:00 Monocytes # 0.6 k/uL (0-1.0) 01/13/17 09:00 Eosinophils # 0.2 k/uL (0-0.7) 01/13/17 09:00 Basophils # 0.0 k/uL (0-0.2) 01/13/17 09:00 Hypochromasia Slight 01/13/17 09:00 Macrocytosis Moderate 01/13/17 09:00 PT 11.6 sec (9.0-12.0) 01/12/17 14:00 INR 1.2 (<1.1) 01/12/17 14:00 APTT 23.1 sec (22.0-30.0) 01/12/17 14:00 Sodium 135 mmol/L (137-145) L 01/13/17 09:00 Potassium 4.0 mmol/L (3.5-5.1) 01/13/17 09:00 Chloride 97 mmol/L (98-107) L 01/13/17 09:00 Carbon Dioxide 28 mmol/L (22-30) 01/13/17 09:00 Anion Gap 10 mmol/L 01/13/17 09:00 BUN 25 mg/dL (9-20) H 01/13/17 09:00 Creatinine 0.73 mg/dL (0.66-1.25) 01/13/17 09:00 Est GFR (MDRD) Af Amer >60 (>60 ml/min/1.73 sqM) 01/13/17 09:00 Est GFR (MDRD) Non-Af >60 (>60 ml/min/1.73 sqM) 01/13/17 09:00 Glucose 123 mg/dL (74-99) H 01/13/17 09:00 Plasma Lactic Acid Abhijit 1.4 mmol/L (0.7-2.0) 01/12/17 14:00 Calcium 8.1 mg/dL (8.4-10.2) L 01/13/17 09:00 Phosphorus 4.7 mg/dL (2.5-4.5) H 01/12/17 14:00 Magnesium 2.1 mg/dL (1.6-2.3) 01/12/17 14:00 Total Bilirubin 0.7 mg/dL (0.2-1.3) 01/12/17 14:00 AST 22 U/L (17-59) 01/12/17 14:00 ALT 23 U/L (21-72) 01/12/17 14:00 Alkaline Phosphatase 190 U/L (38-126) H 01/12/17 14:00 Ammonia <9 umol/L (<30) 01/12/17 14:00 Total Creatine Kinase <20 U/L (55-170) L 01/12/17 14:00 CK-MB (CK-2) 0.5 ng/mL (0.0-2.4) 01/12/17 14:00 CK-MB (CK-2) Rel Index 0.0 01/12/17 14:00 Troponin I <0.012 ng/mL (0.000-0.034) 01/12/17 14:00 NT-Pro-B Natriuret Pep 993 pg/mL 01/12/17 14:00 Total Protein 5.2 g/dL (6.3-8.2) L 01/12/17 14:00 Albumin 2.3 g/dL (3.5-5.0) L 01/12/17 14:00 Amylase 37 U/L (30-110) 01/12/17 14:00 Lipase 21 U/L (23-300) L 01/12/17 14:00 Urine Color Yellow 01/12/17 19:21 Urine Appearance Clear (Clear) 01/12/17 19:21 Urine pH 5.5 (5.0-8.0) 01/12/17 19:21 Ur Specific Cunningham 1.041 (1.001-1.035) H 01/12/17 19:21 Urine Protein Trace (Negative) H 01/12/17 19:21 Urine Glucose (UA) Negative (Negative) 01/12/17 19:21 Urine Ketones Negative (Negative) 01/12/17 19:21 Urine Blood Negative (Negative) 01/12/17 19:21 Urine Nitrite Negative (Negative) 01/12/17 19:21 Urine Bilirubin Negative (Negative) 01/12/17 19:21 Urine Urobilinogen <2.0 mg/dL (<2.0) 01/12/17 19:21 Ur Leukocyte Esterase Negative (Negative) 01/12/17 19:21 Microbiology 01/12/17 19:21 Urine,Voided Urine Culture - Preliminary Assessment and Plan (1) Spontaneous bacterial peritonitis Narrative/Plan: 46-year-old male presents to hospital with increasing abdominal distention with increasing abdominal pain. Associate with a fever and malaise. The patient is been seen by gastroenterology. And I agree with the importance of sampling of the peritoneal fluid given his high risk for spontaneous bacterial peritonitis. There is also the new difficulty of the thin wall fluid collection that could be a pseudocyst. He does not appear to be septic at this point in time. This is more of a common presentation when there is a infected pseudocyst however it could be early. Sampling of the piercing of fluid will come first. If that is negative and the patient continues to have illness despite to microbial therapy within need further intervention. Since the patient is a [address] [place] [address] if he needs sampling of the pseudocyst fluid with suggested is done at their center where they can sample and also utilize the transgastric drainage of the pseudocyst which we do not do at our facility. Antibiotic therapy is altered to meropenem for now while cultures are in process If the patient does have spontaneous retroperitonitis with his advanced liver disease would likely be a candidate for chronic antimicrobial therapy possibly rafixime orally. Status: Acute (2) Fever Status: Acute (3) Ascites Status: Acute (4) Pancreatic pseudocyst Status: Acute
--- NOTE | 2017-01-13 13:24 | US ---
EXAMINATION TYPE: US paracentesis abd w/image DATE OF EXAM: 01/13/2017 1:14 PM CLINICAL HISTORY: Ascites The procedure was discussed with the patient. The risks, complications, benefits, and alternatives we re discussed and any questions were answered. Informed consent was obtained. The patient was placed s upine on the ultrasound table and prepped and draped in the usual sterile fashion. All elements of maximal barrier and sterile technique were utilized. Under ultrasound guidance, acce ss into the left lower quadrant was obtained, via the paracentesis catheter system and direct ultraso und guidance. Approximately 2.7 liters of straw-colored fluid was removed. The patient was stable throughout the pr ocedure and remained stable upon discharge from Department of Radiology. Sample sent to pathology for analysis. IMPRESSION: Successful therapeutic and diagnostic paracentesis under ultrasound guidance.
[2017-01-13] MEDS: SPIRONOLACTONE 25 MG TAB PO SCH (14:25)
[2017-01-13 15:49] LABS: RBC, Body Fluid 670 /uL
--- NOTE | 2017-01-13 15:58 | P.PN ---
Subjective 46-year-old male being seen at the request of the attending. Patient has a history of cirrhosis of the liver. Was recently evaluated [facility]. Patient apparently underwent a paracentesis 10 days prior with less than a liter removed. Patient's being seen at the request of the attending for surgical eval. Surgical service indicates there is no acute surgical abdomen at this time. agree with proceeding with a paracentesis. Defer to GI and infectious disease for further recommendations. Patient's abdomen remains firm to moderate amount of ascites Objective - Vital Signs Vital signs: Vital Signs Temp 97.9 F 01/13/17 15:06 Pulse 89 01/13/17 15:06 Resp 20 01/13/17 15:06 BP 100/58 01/13/17 15:06 Pulse Ox 92 L 01/13/17 15:06 Intake & Output 01/12/17 01/13/17 01/13/17 18:59 06:59 18:59 Intake Total 425 510 Output Total 800 250 Balance -375 260 Weight 92 kg 92 kg Intake: Intake, IV Titration 270 Amount Meropenem 1 gm In Sodium 100 Chloride 0.9% 100 ml @ 100 mls/hr IVPB Q8HR [facility] Rx#:[id number] Sodium Chloride 0.9% 1, 120 000 ml @ 60 mls/hr IV . [id number] [facility] Rx#:[id number] cefTRIAXone 1,000 mg In 50 Sodium Chloride 0.9% 50 ml @ 100 mls/hr IVPB DAILY [facility] Rx#:[id number] Oral 425 240 Output: Urine 800 250 Other: Voiding Method Toilet Toilet Urinal # Voids 1 - Exam GENERAL APPEARANCE: 46-year-old male patient is alert, oriented, in no acute distress. VITAL SIGNS: Reviewed HEENT: Head is normocephalic and atraumatic. Pupils are equal and reactive. The nares are patent. Oropharynx is clear without lesions. NECK: Supple without lymphadenopathy. Traches midline. HEART: S1, S2. Regular rate and rhythm. LUNGS: No crackles or wheezes are heard. ABDOMEN: tenderness midepigastric area radiating to right lower abdomen firm distended moderate ascites, EXTREMITIES: Normal skin color and turgor. No cyanosis, rash, ulceration, clubbing or edema. Radial pedal pulses are 2/4 bilaterally. NEUROLOGICAL: No focal deficits. Strength and sensation are grossly intact. - Labs CBC & Chem 7: 01/13/17 09:00 01/13/17 09:00 Labs: Abnormal Lab Results - Last 24 Hours (Table) 01/12/17 01/13/17 01/13/17 Range/Units 19:21 09:00 09:00 RBC 2.27 L (4.30-5.90) m/uL Hgb 7.5 L (13.0-17.5) gm/dL Hct 23.7 L (39.0-53.0) % MCV 104.6 H (80.0-100.0) fL Lymphocytes # 0.7 L (1.0-4.8) k/uL Sodium 135 L (137-145) mmol/L Chloride 97 L (98-107) mmol/L BUN 25 H (9-20) mg/dL Glucose 123 H (74-99) mg/dL Calcium 8.1 L (8.4-10.2) mg/dL Ur Specific Jackson 1.041 H (1.001-1.035) Urine Protein Trace H (Negative) Microbiology - Last 24 Hours (Table) 01/12/17 19:21 Urine Culture - Preliminary Urine,Voided Assessment and Plan Plan: Impression Present on admission abdominal pain with acute ascites Alcoholic liver disease Chronic alcoholism Portal hypertension Chronic alcoholic pancreatitis Pleural effusion on the right Pancreatic pseudocyst Spontaneous bacterial peritonitis Recent discharge paracentesis done for abdominal ascites as [facility] Plan There is no acute surgical pathology at this time Agree with GIs workup will need a urgent paracentesis Diuretics as ordered recommend not proceeding with diagnostic sampling of the pseudo-cyst fluid secondary to an increased risk of peritoneal contamination Defer to infectious disease for further input Would recommend the patient follow-up with [facility] known to . service Further surgical recommendations pending The above dictated assessment and findings were discussed with dr Tata Jordan and the plan of care have been dictated as directed. Noy Lawrence nurse practitioner acting as a scribe for Krish
[2017-01-13] MEDS: MEROPENEM 1 GM in SODIUM CHLORIDE 0.9% 100 ML IVPB SCH (16:36)
--- NOTE | 2017-01-13 18:47 | PN ---
DATE OF SERVICE: 01/13/2017 This 46-year-old gentleman who was admitted with abdominal distention and ascites, also had some fever. The patient also had fever and possibility of necrotic pancreatitis and pseudocyst has been considered. Infectious Disease has been consulted. PAST MEDICAL HISTORY: Reviewed. REVIEW OF SYSTEMS: CARDIOVASCULAR: No angina. RESPIRATIONS: As mentioned earlier. GI: As mentioned earlier. : No dysuria. NERVOUS SYSTEM: No numbness or weakness. Current medications are: 1. Tylenol 650 q.6. 2. Folic acid 1 mg. 3. Lasix 40 mg. 4. Dilaudid 0.5 mg q.6 p.r.n. 5. Cephulac 20 mg p.o. b.i.d. 6. Melatonin 3 mg at bedtime. 7. Meropenem 1 gram q.8. 9. Narcan 0.2 q.2 p.r.n. 10. Suboxone. 11. Zofran. 12. Protonix 40 daily. 13. Lyrica 75 p.o. b.i.d. 14. Aldactone 100 mg p.o. daily. 15. Vitamin B 100 mg p.o. daily. PHYSICAL EXAMINATION: Patient is alert, oriented x4. Pulse 75, blood pressure 101/53, respirations 20, temperature 98.2, pulse ox 90% on room air. HEENT: Conjunctivae normal. NECK: No jugular venous distention. CARDIOVASCULAR: S1 and S2, muffled. RESPIRATORY: Breath sounds diminished at the bases. A few scattered rhonchi and crackles. ABDOMEN: Soft, obese. Ascites present. Shifting dullness also present. No guarding. No rigidity. No mass palpable. LEGS: No edema, no swelling. NERVOUS SYSTEM: No focal deficits. LABS: WBC 8.3, hemoglobin 11.3, sodium 135. ASSESSMENT: 1. Abdominal distention with ascites with abdominal pain and fever, possibly spontaneous bacterial peritonitis. 2. Rule out necrotic pancreatitis or pancreatic pseudocyst. 3. Increased WBC. 4. Anemia macrocytic secondary to cirrhosis of the liver. 5. Cirrhosis of the liver, possibly secondary to EtOH. 6. Hyponatremia secondary to hypovolemia. 7. Increased random blood sugar. 8. Hypocalcemia, mild. 9. Hypoalbuminemia with mild to moderate protein calorie malnutrition. 10. Chronic liver disease. 11. History of pneumonia. 12. History of back pain. 13. History of recurrent ascites and ascitic tap. 14. History of chronic pancreatitis. 15. Pleural effusion. 16. Back surgery and degenerative joint disease. 17. History of hernia repair. 18. Remote history of nicotine dependence. 19. History of EtOH. 20. FULL CODE. RECOMMENDATIONS AND DISCUSSION: I recommend to continue the current medications, continue monitoring and symptomatic treatment. Otherwise abdominal paracentesis, diagnostic and therapeutic. Otherwise empiric antibiotics. Infectious Disease, multiple input appreciated. The patient was also seen by Surgery as well. Merrem was initiated per Dr. Nath. Further recommendations to follow. Otherwise, hemoglobin 7.5. Prognosis is guarded. Discussed with the family. See orders for further details. Further recommendations to follow. MTDD
[2017-01-13] MEDS: MELATONIN 3 MG TABLET PO SCH (21:34)
[2017-01-14] MEDS: MEROPENEM 1 GM in SODIUM CHLORIDE 0.9% 100 ML IVPB SCH ×3 (01:02→15:39)
[2017-01-14] MEDS: SODIUM CHLORIDE 0.9% 1,000 ML IV SCH (02:13)
[2017-01-14] MEDS: LACTULOSE 20 GM/30 ML CUP PO SCH ×3 (07:36→21:14)
[2017-01-14] MEDS: MODAFINIL 200 MG TAB PO SCH (07:36)
[2017-01-14] MEDS: FUROSEMIDE 40 MG TAB PO SCH (07:36)
[2017-01-14] MEDS: FOLIC ACID 1 MG TAB PO SCH (07:36)
[2017-01-14] MEDS: PANTOPRAZOLE 40 MG TABLET PO SCH (07:36)
[2017-01-14] MEDS: PREGABALIN 75 MG CAP PO SCH ×2 (07:37→21:14)
[2017-01-14] MEDS: SPIRONOLACTONE 25 MG TAB PO SCH (07:37)
[2017-01-14] MEDS: THIAMINE 100 MG TAB PO SCH (07:37)
[2017-01-14 09:14] LABS: Basophils % (A) 0 %; CH 32.6; CHCM 30.8; Eosinophils # (A) 0.2 k/uL (0-0.7); Eosinophils % (A) 3 %; HCT 25.4 % (39.0-53.0); HDW 2.69; Hypochromasia Moderate; Luc # (Auto) 0.18; Luc % (Auto) 2; Lymphocytes # (A) 0.9 k/uL (1.0-4.8); Lymphocytes % (A) 11 %; MCH 33.2 pg (25.0-35.0); MCHC 31.4 g/dL (31.0-37.0); MCV 105.8 fL (80.0-100.0); Macrocytosis Moderate; Mean Platelet Volume 7.8; Monocytes # (A) 0.5 k/uL (0-1.0); Monocytes % (A) 6 %; Neutrophils # (A) 6.4 k/uL (1.3-7.7); Neutrophils % (A) 79 %; RBC 2.41 m/uL (4.30-5.90); RDW 15.2 % (11.5-15.5); WBC 8.1 k/uL (3.8-10.6); WBC (Perox) 8.44
[2017-01-14 09:31] LABS: Anion Gap 6 mmol/L; Blood Urea Nitrogen 17 mg/dL (9-20); Calcium 8.4 mg/dL (8.4-10.2); Carbon Dioxide 30 mmol/L (22-30); Chloride 101 mmol/L (98-107); Glucose 110 mg/dL (74-99); Non-African American GFR(MDRD) >60 (>60 ml/min/1.73 sqM); Potassium 3.6 mmol/L (3.5-5.1); Sodium 137 mmol/L (137-145)
[2017-01-14] MEDS ORDERED: NICOTINE 21MG/24HR PATCH TRANSDERM STA (09:55)
--- NOTE | 2017-01-14 11:46 | P.PN ---
Subjective Principal diagnosis: Peritonitis alcohol liver disease 46-year-old male with a history of alcohol liver disease admitted with fevers and abdominal pain secondary to suspected peritonitis. Possible infected pseudocyst from chronic pancreatitis. Status post paracentesis yesterday with 2.7 L removal; fluid cultures pending. T-max 99.0. Receiving intravenous antibiotics evaluated by ID service. Feels better today. Denies abdominal pain. Tolerating diet. Objective - Vital Signs Vital signs: Vital Signs Temp 99.0 F 01/14/17 07:00 Pulse 89 01/14/17 07:00 Resp 20 01/14/17 08:00 BP 98/60 01/14/17 07:00 Pulse Ox 90 L 01/14/17 07:00 Intake & Output 01/13/17 01/14/17 01/14/17 18:59 06:59 18:59 Intake Total 750 580 Output Total 250 250 Balance 500 330 Weight 92 kg 91.3 kg 91.3 kg Intake: Intake, IV Titration 270 100 Amount Meropenem 1 gm In Sodium 100 100 Chloride 0.9% 100 ml @ 100 mls/hr IVPB Q8HR [facility] Rx#:[id number] Sodium Chloride 0.9% 1, 120 000 ml @ 60 mls/hr IV . [id number] [facility] Rx#:[id number] cefTRIAXone 1,000 mg In 50 Sodium Chloride 0.9% 50 ml @ 100 mls/hr IVPB DAILY [facility] Rx#:[id number] Oral 480 480 Output: Urine 250 250 Other: Voiding Method Toilet Toilet Urinal Urinal # Voids 3 3 - Exam General appearance: The patient is alert, oriented, in no acute distress. HET: Head is normocephalic and atraumatic. Pupils are equal and reactive. Oropharynx is clear without lesions. Neck: Supple without lymphadenopathy. Trachea midline. Heart: S1 S2. Regular rate and rhythm. Lungs: No crackles or wheezes are heard. Abdomen: Soft, nontender, mildly bloated with bowel sounds. No peritoneal signs. No palpable organomegaly or masses. Extremities: Normal skin color and turgor. No cyanosis, rash, ulceration, clubbing, or edema. Radial and pedal pulses are 2/4 bilaterally. Neurological: No focal deficits. Strength and sensation are grossly intact. - Labs CBC & Chem 7: 01/14/17 08:55 01/14/17 08:55 Labs: Abnormal Lab Results - Last 24 Hours (Table) 01/14/17 01/14/17 Range/Units 08:55 08:55 RBC 2.41 L (4.30-5.90) m/uL Hgb 8.0 L (13.0-17.5) gm/dL Hct 25.4 L (39.0-53.0) % MCV 105.8 H (80.0-100.0) fL Lymphocytes # 0.9 L (1.0-4.8) k/uL Creatinine 0.56 L (0.66-1.25) mg/dL Glucose 110 H (74-99) mg/dL Microbiology - Last 24 Hours (Table) 01/13/17 12:40 Gram Stain - Preliminary Ascites Fluid Body Fluid Culture - Preliminary 01/13/17 12:40 Anaerobic Culture - Preliminary Peritoneal Fluid 01/12/17 19:21 Urine Culture - Final Urine,Voided Assessment and Plan (1) Fever Narrative/Plan: Expected peritonitis possible SBP possible infected pseudocyst possible walled off necrosis with underlying chronic pancreatitis. Status: Acute (2) Ascites Status: Acute (3) Abdominal pain Status: Acute (4) Alcoholic liver disease Status: Acute (5) ETOH abuse Status: Acute (6) Portal hypertension Status: Acute (7) Pleural effusion on right Narrative/Plan: Possible hydrothorax Status: Acute (8) Chronic alcoholic pancreatitis Status: Chronic Plan: 1. Await fluid cultures. ID and general surgery service following. 2. IV antibiotics. 3. Low-salt diet. 4. Continue diuretics BUN/creatinine stable. 5. We'll continue to follow. Assessment and plan a care discussed with Dr. Boo.
--- NOTE | 2017-01-14 15:37 | P.PN ---
Progress Note - Text Patient seen by surgical service. There is a significant improvement in patient 's abdominal distention. Patient is status post paracentesis done yesterday with 2.7 L removed. Fluid cultures were obtained. Patients being followed by gastroenterology service and infectious disease patient currently is reporting significant improvement with decrease abdominal pain. At this time there is no further surgical recommendations patient will be seen on an as-needed basis will sign off for now will defer further treatment to the attending Will follow on an as-needed basis The above dictated assessment and findings were discussed with Dr. Payton. Impression and the plan of care have been dictated as directed. Noy Lawrence nurse practitioner acting as a scribe for dr payton
[2017-01-14] MEDS: NON-FORMULARY DRUG (Buprenorphine Hcl/Naloxone Hcl [Suboxone 8 Mg-2 Mg Sl Film] 1 FILM) SL SCH ×3 (16:16→22:17)
[2017-01-14] MEDS: MELATONIN 3 MG TABLET PO SCH (21:14)
--- NOTE | 2017-01-14 22:39 | PN ---
DATE OF SERVICE: 01/14/2017 This 46-year-old gentleman who was admitted with abdominal distention and ascites also had fever. The patient on empiric antibiotics. Meropenem was utilized at this time. The patient apparently had abdominal paracentesis of about 2.7 L of straw colored fluid. Cultures are pending at this time. Dr. Payton also following for surgical point of view. Past medical history reviewed. REVIEW OF SYSTEMS: CARDIOVASCULAR: No angina or palpitations. RESPIRATORY: As mentioned earlier. GASTROINTESTINAL: As mentioned earlier. GENITOURINARY: No dysuria. CENTRAL NERVOUS SYSTEM: No numbness or weakness. MEDICATIONS: 1. Tylenol 650 q.6h p.r.n. 2. Folic acid 1 mg daily. 3. Lasix 40 mg p.o. daily. 4. Dilaudid 0.5 IV every 4-6h p.r.n. 5. Cephulac 20 grams p.o. t.i.d. 6. Melatonin 3 mg at bedtime. 7. Meropenem 1 gram IV q.8. 8. Provigil 200 mg p.o. daily. 9. Narcan 0.2 q.2 p.r.n. 10. Habitrol 21 daily. 11. Zofran 4 mg IV q.8. 12. Protonix 40 mg daily. 13. Lyrica 75 mg p.o. b.i.d. 14. Aldactone 25 p.o. daily. 15. Thiamin 100 mg p.o. daily. PHYSICAL EXAMINATION: The patient is alert and oriented times . Pulse is 79, blood pressure 91/61, respirations 20, temperature 98.2. Pulse ox 97% on room air. HEENT: Conjunctivae oral. NECK: No jugular venous distention. CARDIOVASCULAR: S1, S2 muffled. RESPIRATORY: Breath sounds diminished at the bases. A few scattered rhonchi and crackles. ABDOMEN: Soft. Ascites present. LEGS: No edema. No swelling. CENTRAL NERVOUS SYSTEM: No focal deficits. LABS: At this time shows WBC 8.8. Hemoglobin 8. Other labs are noted. Urinalysis noted. ASSESSMENT: 1. Abdominal distention and ascites, abdominal pain and fever possibly rule out spontaneous bacterial peritonitis. Rule out necrotic pancreas and 2. Increased WBC. 3. Anemia. Macrocytic secondary to cirrhosis of the liver. 4. Cirrhosis of the liver possibly secondary to ETOH. 5. Hyponatremia secondary to hypovolemia. 6. Increased random blood sugar. Hypercalcemia, mild. 7. Hypoalbuminemia with mild to moderate protein calorie malnutrition. 8. Chronic liver disease. 9. History pneumonia. 10. History of back pain. 11. History of recurrent ascites. Ascitic tap. 12. History of chronic pancreatitis. 13. History of pleural effusions. 14. Back surgery, and degenerative joint disease. 15. History of hernia repair. 16. Remote history of nicotine dependence. 17. History of ETOH. 18. FULL CODE. RECOMMENDATIONS AND DISCUSSION: Recommend to continue current medications, continue with monitoring, symptomatic treatment. Otherwise, at this time, I would recommend to continue empiric antibiotics. Follow closely. Follow with infectious disease. Further recommendations to follow. MTDD
--- NOTE | 2017-01-14 22:41 | P.PN ---
Subjective Principal diagnosis: Ascites 46-year-old male presents to hospital with increasing ascites increasing weakness, some lower extremity edema and fever. The patient has a very pertinent recent history that he was hospital was at her facility approximately 3 weeks prior which point in time he had hepatorenal syndrome with acute renal failure. He is now being followed by [facility] Dr. Neha Morocho and is being monitored for the transplant protocol due to his cirrhosis and extensive liver disease. He was treated at facility and then discharged home until the above symptoms resulting in his readmission here. He did have a paracentesis of about a liter the last time it was performed no notation of any infection is related. And at discharge was not on antibiotic therapy. Upon arrival the patient has computed tomography scan was abnormal and pelvis performed that shows evidence of the thin wall fluid collection approximate 9.5 x 12 cm that is superior to the pancreas and causing some mass effect on the stomach even. Patient also has ascites. There is evidence also of a right- sided pleural effusion. An atrophic pancreas was seen in concern for pseudocyst. With concerns for peritonitis because of his fever antibiotic therapy was initiated. The patient has had his paracentesis and is much improved today. He is awake alert oriented to person place [facility]. Markedly improved from yesterday. Affect is even improved. Is remorseful for his alcohol use and its devastation to his body Objective - Vital Signs Vital signs: Vital Signs Temp 98.2 F 01/14/17 15:06 Pulse 79 01/14/17 15:06 Resp 20 01/14/17 16:00 BP 91/61 01/14/17 15:06 Pulse Ox 96 01/14/17 15:06 Intake & Output 01/14/17 01/14/17 01/15/17 06:59 18:59 06:59 Intake Total 1400 Output Total 500 Balance 900 Weight 91.3 kg 91.3 kg Intake: Intake, IV Titration 200 Amount Meropenem 1 gm In Sodium 200 Chloride 0.9% 100 ml @ 100 mls/hr IVPB Q8HR [facility] Rx#:[id number] Oral 1200 Output: Urine 500 Other: Voiding Method Toilet Urinal # Voids 3 2 - Exam 46-year-old male who looks much older than his stated age. He is 6 foot 5 and has evidence of cachexia and muscle wasting but has significant ascites HEENT: Anicteric conjunctiva are pink and moist nasal mucosa grossly intact without significant lesions, there is no thrush. Poor dentition Neck: The neck is supple without significant lymphadenopathy or thyromegaly. Lungs: The metrical air entry is noted. Basilar crackles are heard. Expiratory wheezes are heard. No bronchial sounds are noted. Heart: Regular rate and rhythm with an audible S1-S2, no S3 no S4. There is no significant murmur click or rub, PMI was nondisplaced. Abdomen: Positive bowel sounds are noted. There is evidence of ascites but improved after paracentesis. He is a palpated fluid wave is noted. Liver edge is palpable 4 cm below the right costal margin. Spleen is nonpalpable. Abdomen is nonrigid. It does have some mild diffuse tenderness especially in the right upper and right lower quadrants Extremities: The extremities have adequate pulses 2+ and symmetric, there is extensive muscular wasting. There is no evidence of any lesions on the upper or lower extremities. Neuro: Awake alert oriented to person place and time. There are no acute new gross focal sensory motor deficits. He does appear to be chronically ill - Labs CBC & Chem 7: 01/14/17 08:55 01/14/17 08:55 Labs: Abnormal Lab Results - Last 24 Hours (Table) 01/14/17 01/14/17 Range/Units 08:55 08:55 RBC 2.41 L (4.30-5.90) m/uL Hgb 8.0 L (13.0-17.5) gm/dL Hct 25.4 L (39.0-53.0) % MCV 105.8 H (80.0-100.0) fL Lymphocytes # 0.9 L (1.0-4.8) k/uL Creatinine 0.56 L (0.66-1.25) mg/dL Glucose 110 H (74-99) mg/dL Microbiology - Last 24 Hours (Table) 01/13/17 12:40 Gram Stain - Preliminary Ascites Fluid Body Fluid Culture - Preliminary 01/13/17 12:40 Anaerobic Culture - Preliminary Peritoneal Fluid 01/12/17 19:21 Urine Culture - Final Urine,Voided Laboratory Results WBC 8.1 k/uL (3.8-10.6) 01/14/17 08:55 RBC 2.41 m/uL (4.30-5.90) L 01/14/17 08:55 Hgb 8.0 gm/dL (13.0-17.5) L 01/14/17 08:55 Hct 25.4 % (39.0-53.0) L 01/14/17 08:55 MCV 105.8 fL (80.0-100.0) H 01/14/17 08:55 MCH 33.2 pg (25.0-35.0) 01/14/17 08:55 MCHC 31.4 g/dL (31.0-37.0) 01/14/17 08:55 RDW 15.2 % (11.5-15.5) 01/14/17 08:55 Plt Count 322 k/uL (150-450) 01/14/17 08:55 Neutrophils % 79 % 01/14/17 08:55 Lymphocytes % 11 % 01/14/17 08:55 Monocytes % 6 % 01/14/17 08:55 Eosinophils % 3 % 01/14/17 08:55 Basophils % 0 % 01/14/17 08:55 Neutrophils # 6.4 k/uL (1.3-7.7) 01/14/17 08:55 Lymphocytes # 0.9 k/uL (1.0-4.8) L 01/14/17 08:55 Monocytes # 0.5 k/uL (0-1.0) 01/14/17 08:55 Eosinophils # 0.2 k/uL (0-0.7) 01/14/17 08:55 Basophils # 0.0 k/uL (0-0.2) 01/14/17 08:55 Hypochromasia Moderate 01/14/17 08:55 Macrocytosis Moderate 01/14/17 08:55 PT 11.6 sec (9.0-12.0) 01/12/17 14:00 INR 1.2 (<1.1) 01/12/17 14:00 APTT 23.1 sec (22.0-30.0) 01/12/17 14:00 Sodium 137 mmol/L (137-145) 01/14/17 08:55 Potassium 3.6 mmol/L (3.5-5.1) 01/14/17 08:55 Chloride 101 mmol/L (98-107) 01/14/17 08:55 Carbon Dioxide 30 mmol/L (22-30) 01/14/17 08:55 Anion Gap 6 mmol/L 01/14/17 08:55 BUN 17 mg/dL (9-20) 01/14/17 08:55 Creatinine 0.56 mg/dL (0.66-1.25) L 01/14/17 08:55 Est GFR (MDRD) Af Amer >60 (>60 ml/min/1.73 sqM) 01/14/17 08:55 Est GFR (MDRD) Non-Af >60 (>60 ml/min/1.73 sqM) 01/14/17 08:55 Glucose 110 mg/dL (74-99) H 01/14/17 08:55 Plasma Lactic Acid Abhijit 1.4 mmol/L (0.7-2.0) 01/12/17 14:00 Calcium 8.4 mg/dL (8.4-10.2) 01/14/17 08:55 Phosphorus 4.7 mg/dL (2.5-4.5) H 01/12/17 14:00 Magnesium 2.1 mg/dL (1.6-2.3) 01/12/17 14:00 Total Bilirubin 0.7 mg/dL (0.2-1.3) 01/12/17 14:00 AST 22 U/L (17-59) 01/12/17 14:00 ALT 23 U/L (21-72) 01/12/17 14:00 Alkaline Phosphatase 190 U/L (38-126) H 01/12/17 14:00 Ammonia <9 umol/L (<30) 01/12/17 14:00 Total Creatine Kinase <20 U/L (55-170) L 01/12/17 14:00 CK-MB (CK-2) 0.5 ng/mL (0.0-2.4) 01/12/17 14:00 CK-MB (CK-2) Rel Index 0.0 01/12/17 14:00 Troponin I <0.012 ng/mL (0.000-0.034) 01/12/17 14:00 NT-Pro-B Natriuret Pep 993 pg/mL 01/12/17 14:00 Total Protein 5.2 g/dL (6.3-8.2) L 01/12/17 14:00 Albumin 2.3 g/dL (3.5-5.0) L 01/12/17 14:00 Amylase 37 U/L (30-110) 01/12/17 14:00 Lipase 21 U/L (23-300) L 01/12/17 14:00 Urine Color Yellow 01/12/17 19:21 Urine Appearance Clear (Clear) 01/12/17 19:21 Urine pH 5.5 (5.0-8.0) 01/12/17 19:21 Ur Specific [place] 1.041 (1.001-1.035) H 01/12/17 19:21 Urine Protein Trace (Negative) H 01/12/17 19:21 Urine Glucose (UA) Negative (Negative) 01/12/17 19:21 Urine Ketones Negative (Negative) 01/12/17 19:21 Urine Blood Negative (Negative) 01/12/17 19:21 Urine Nitrite Negative (Negative) 01/12/17 19:21 Urine Bilirubin Negative (Negative) 01/12/17 19:21 Urine Urobilinogen <2.0 mg/dL (<2.0) 01/12/17 19:21 Ur Leukocyte Esterase Negative (Negative) 01/12/17 19:21 Fluid Source Peritoneal 01/13/17 12:40 Fluid Color Yellow 01/13/17 12:40 Fluid Appearance Hazy 01/13/17 12:40 Fluid RBC 670 /uL 01/13/17 12:40 Fluid Nucleated Cells 60 /uL 01/13/17 12:40 Fluid Polynuclear WBCs 8 % 01/13/17 12:40 Fluid Mononuclear WBCs 92 % 01/13/17 12:40 Microbiology 01/13/17 12:40 Ascites Fluid Gram Stain - Preliminary 01/13/17 12:40 Ascites Fluid Body Fluid Culture - Preliminary 01/12/17 14:00 Blood Blood Culture - Preliminary No Growth after 48 hours 01/13/17 12:40 Peritoneal Fluid Anaerobic Culture - Preliminary 01/12/17 19:21 Urine,Voided Urine Culture - Final Assessment and Plan (1) Spontaneous bacterial peritonitis Narrative/Plan: 46-year-old male presents to hospital with increasing abdominal distention with increasing abdominal pain. Associate with a fever and malaise. The patient is been seen by gastroenterology. And I agree with the importance of sampling of the peritoneal fluid given his high risk for spontaneous bacterial peritonitis. There is also the new difficulty of the thin wall fluid collection that could be a pseudocyst. He does not appear to be septic at this point in time. This is more of a common presentation when there is a infected pseudocyst however it could be early. Sampling of the piercing of fluid will come first. If that is negative and the patient continues to have illness despite to microbial therapy within need further intervention. Since the patient is a [address] [place] [address] if he needs sampling of the pseudocyst fluid with suggested is done at their center where they can sample and also utilize the transgastric drainage of the pseudocyst which we do not do at our facility. Antibiotic therapy is altered to meropenem for now while cultures are in process The fluid did not have a very high cell count. Await further culture in the morning. If remains negative could then be transitioned to oral Bactrim for discharge. If the patient does have spontaneous peritonitis with his advanced liver disease would likely be a candidate for chronic antimicrobial therapy possibly rafixime orally. Status: Acute (2) Fever Status: Acute (3) Ascites Status: Acute (4) Pancreatic pseudocyst Status: Acute
[2017-01-14 23:33] VITALS: RESP 16
[2017-01-15] MEDS: MEROPENEM 1 GM in SODIUM CHLORIDE 0.9% 100 ML IVPB SCH ×2 (00:09→08:35)
[2017-01-15] MEDS: SPIRONOLACTONE 25 MG TAB PO SCH (08:34)
[2017-01-15] MEDS: THIAMINE 100 MG TAB PO SCH (08:34)
[2017-01-15] MEDS: FOLIC ACID 1 MG TAB PO SCH (08:34)
[2017-01-15] MEDS: FUROSEMIDE 40 MG TAB PO SCH (08:34)
[2017-01-15] MEDS: PANTOPRAZOLE 40 MG TABLET PO SCH (08:35)
[2017-01-15] MEDS: PREGABALIN 75 MG CAP PO SCH (08:38)
[2017-01-15] MEDS: LACTULOSE 20 GM/30 ML CUP PO SCH (08:39)
[2017-01-15] MEDS: MODAFINIL 200 MG TAB PO SCH (08:46)
[2017-01-15 08:58] LABS: Anion Gap 9 mmol/L; Blood Urea Nitrogen 14 mg/dL (9-20); Calcium 8.6 mg/dL (8.4-10.2); Carbon Dioxide 27 mmol/L (22-30); Chloride 102 mmol/L (98-107); Glucose 116 mg/dL (74-99); Non-African American GFR(MDRD) >60 (>60 ml/min/1.73 sqM); Potassium 4.2 mmol/L (3.5-5.1); Sodium 138 mmol/L (137-145)
[2017-01-15] MEDS ORDERED: NICOTINE 21MG/24HR PATCH TRANSDERM SCH (09:00)
[2017-01-15 09:26] LABS: Basophils % (A) 0 %; CH 32.9; CHCM 31.3; Eosinophils # (A) 0.3 k/uL (0-0.7); Eosinophils % (A) 3 %; HCT 29.4 % (39.0-53.0); HDW 2.71; HGB 9.2 gm/dL (13.0-17.5); Hypochromasia Slight; Luc # (Auto) 0.18; Luc % (Auto) 2; Lymphocytes # (A) 1.2 k/uL (1.0-4.8); Lymphocytes % (A) 12 %; MCH 32.9 pg (25.0-35.0); MCHC 31.3 g/dL (31.0-37.0); MCV 105.2 fL (80.0-100.0); Macrocytosis Moderate; Mean Platelet Volume 8.3; Monocytes # (A) 0.7 k/uL (0-1.0); Monocytes % (A) 7 %; Neutrophils # (A) 7.3 k/uL (1.3-7.7); Neutrophils % (A) 76 %; RDW 15.3 % (11.5-15.5); WBC 9.6 k/uL (3.8-10.6); WBC (Perox) 9.53
--- NOTE | 2017-01-15 09:43 | P.PN ---
Subjective Principal diagnosis: Peritonitis alcohol liver disease 46-year-old male with a history of alcohol liver disease admitted with fevers and abdominal pain secondary to suspected peritonitis. Possible infected pseudocyst from chronic pancreatitis. Status post paracentesis ; fluid cultures pending. T-max 99.0. Receiving intravenous antibiotics evaluated by ID service. Feels better today. Denies abdominal pain. Tolerating diet. Objective - Vital Signs Vital signs: Vital Signs Temp 97.7 F 01/15/17 07:00 Pulse 89 01/15/17 07:00 Resp 16 01/15/17 07:00 BP 93/58 01/15/17 07:00 Pulse Ox 95 01/15/17 07:00 Intake & Output 01/14/17 01/15/17 01/15/17 18:59 06:59 18:59 Intake Total 1400 Output Total 500 Balance 900 Weight 91.3 kg 91.1 kg Intake: Intake, IV Titration 200 Amount Meropenem 1 gm In Sodium 200 Chloride 0.9% 100 ml @ 100 mls/hr IVPB Q8HR [facility] Rx#:[id number] Oral 1200 Output: Urine 500 Other: Voiding Method Toilet Urinal # Voids 2 2 - Exam General appearance: The patient is alert, oriented, in no acute distress. HET: Head is normocephalic and atraumatic. Pupils are equal and reactive. Oropharynx is clear without lesions. Neck: Supple without lymphadenopathy. Trachea midline. Heart: S1 S2. Regular rate and rhythm. Lungs: No crackles or wheezes are heard. Abdomen: Soft, nontender, mildly bloated with bowel sounds. No peritoneal signs. No palpable organomegaly or masses. Extremities: Normal skin color and turgor. No cyanosis, rash, ulceration, clubbing, or edema. Radial and pedal pulses are 2/4 bilaterally. Neurological: No focal deficits. Strength and sensation are grossly intact. - Labs CBC & Chem 7: 01/15/17 08:19 01/15/17 08:19 Labs: Abnormal Lab Results - Last 24 Hours (Table) 01/15/17 01/15/17 Range/Units 08:19 08:19 RBC 2.80 L (4.30-5.90) m/uL Hgb 9.2 L (13.0-17.5) gm/dL Hct 29.4 L (39.0-53.0) % MCV 105.2 H (80.0-100.0) fL Creatinine 0.50 L (0.66-1.25) mg/dL Glucose 116 H (74-99) mg/dL Microbiology - Last 24 Hours (Table) 01/13/17 12:40 Gram Stain - Preliminary Ascites Fluid Body Fluid Culture - Preliminary Assessment and Plan (1) Fever Narrative/Plan: Suspect peritonitis possible SBP possible infected pseudocyst possible walled off necrosis with underlying chronic pancreatitis. Status: Acute (2) Ascites Status: Acute (3) Abdominal pain Status: Acute (4) Alcoholic liver disease Status: Acute (5) ETOH abuse Status: Acute (6) Portal hypertension Status: Acute (7) Pleural effusion on right Narrative/Plan: Possible hydrothorax Status: Acute (8) Chronic alcoholic pancreatitis Status: Chronic Plan: 1. Diagnostic paracentesis fluid cultures pending. 2. Antibiotics per ID. 5. Continue Diuretics Lasix 40 mg daily. Aldactone 100 mg daily. Monitor BUN/ creatinine daily. 6. Low-salt diet. We'll follow as needed. Follow-up [facility] next month is advised. Recommend repeat CT abdominal imaging in 2-3 weeks after discharge. Assessment and plan a care discussed with Dr. Boo.
[2017-01-15] MEDS: NON-FORMULARY DRUG (Buprenorphine Hcl/Naloxone Hcl [Suboxone 8 Mg-2 Mg Sl Film] 1 FILM) SL SCH (11:20)
[2017-01-15 15:28] VITALS: BP 107/61; PULSE 84; TEMP 97.6
--- NOTE | 2017-01-16 14:28 | DS ---
DATE OF ADMISSION: 01/12/2017 DATE OF DISCHARGE: 01/15/2017 DATE OF SERVICE: 01/15/2017 FINAL DIAGNOSES: 1. Abdominal distention and ascites with pain with fever, possibly spontaneous bacterial peritonitis. 2. Increased WBC. 3. Anemia, macrocytic secondary to cirrhosis of the liver. 4. Cirrhosis of liver, possibly secondary to EtOH. 5. Hyponatremia secondary hypervolemia. 6. Increased random blood sugar. 7. Hypocalcemia, mild. 8. Hypoalbuminemia with mild to moderate protein calorie malnutrition. 9. Chronic liver disease. 10. History of pneumonia. 11. History of back pain. 12. History of recurrent ascites, ascitic tap status post. 13. History of chronic pancreatitis. 14. History of pleural effusion. 15. History of back surgery and degenerative joint disease. 16. History of hernia repair. 17. Remote history of nicotine dependence. 18. History of EtOH 19. FULL CODE. DISCHARGE DISPOSITION: The patient will be discharged in stable condition with guarded prognosis. HISTORY OF PRESENT ILLNESS: This 46-year-old gentleman with a past medical history of multiple medical problems was admitted with abdominal pain and multiple other medical issues as mentioned earlier. The patient underwent abdominal paracentesis. Cultures are negative. Treated empirically with antibiotics, improved significantly. White count 9.6, hemoglobin 9.2. Seen by multiple consultants including Dr. Boo. On exam, vitals are stable. CARDIOVASCULAR: S1 and S2 muffled. ABDOMEN: Soft. Minimal ascites present. DISCHARGE ADVICE: 1. Diet is cardiac. 2. Activity limited until followup. 3. Follow up with Dr. Randhawa in 2 to 3 days. 4. Follow up with Dr. Boo in 2 weeks. The home medications are: 1. Buprenorphine, naloxone 1 film b.i.d. 2. Folic acid 1 mg daily. 3. Lasix 40 mg p.o. daily. 4. Lactulose 20 grams p.o. t.i.d. 5. Provigil 200 mg p.o. daily. 6. Habitrol 21 daily. 7. Protonix 40 mg daily. 8. Lyrica 75 mg p.o. b.i.d. 9. Aldactone 100 mg p.o. daily. 10. Bactrim DS one p.o. b.i.d. for 2 weeks. 11. Multivitamins 1 p.o. daily. 12. CBC, BMP with Dr. Randhawa and continue to follow.
== END 2017-01-15 16:09 | disposition home or self-care (01) | DRG 372 ==
LOC: EC 13:10 → 4MS4W 16:11
PROVIDERS: ADMIT Hospitalist; ATTEND Hospitalist
PROC: 0W9G3ZZ Drainage of Peritoneal Cavity, Percutaneous Approach (ICD-10-PCS; principal; 2017-01-13)
DX: K65.2 Spontaneous bacterial peritonitis (principal); E44.0 Moderate protein-calorie malnutrition; J90 Pleural effusion, not elsewhere classified; K76.6 Portal hypertension; K86.3 Pseudocyst of pancreas; E87.1 Hypo-osmolality and hyponatremia; K86.0 Alcohol-induced chronic pancreatitis; E83.51 Hypocalcemia; K70.31 Alcoholic cirrhosis of liver with ascites; D53.9 Nutritional anemia, unspecified; E86.1 Hypovolemia; F10.20 Alcohol dependence, uncomplicated; F17.200 Nicotine dependence, unspecified, uncomplicated; K21.9 Gastro-esophageal reflux disease without esophagitis; M47.9 Spondylosis, unspecified; R09.02 Hypoxemia; Z87.01 Personal history of pneumonia (recurrent); Z79.891 Long term (current) use of opiate analgesic; Z79.899 Other long term (current) drug therapy
CPT/HCPCS: 36415; 49083; 71020; 74177; 80048; 80053; 81003; 82140; 82150; 82550; 82553; 82945; 83605; 83690; 83735; 83880; 84100; 84484; 85025; 85610; 85730; 87040; 87070; 87075; 87086; 87205; 89050; 93005; 96374; 99285

== ENCOUNTER → 2017-02-13 | Outpatient (CLI) | payer BC ==
[2017-02-13 15:52] LABS: CH 31.3; CHCM 30.7; HCT 31.2 % (39.0-53.0); HDW 2.47; HGB 9.7 gm/dL (13.0-17.5); Hypochromasia Slight; MCH 31.8 pg (25.0-35.0); MCHC 31.2 g/dL (31.0-37.0); MCV 101.9 fL (80.0-100.0); Macrocytosis Slight; Mean Platelet Volume 7.4; RBC 3.07 m/uL (4.30-5.90); RDW 14.4 % (11.5-15.5); WBC 13.2 k/uL (3.8-10.6)
[2017-02-13 16:31] LABS: ALT 22 U/L (21-72); AST 24 U/L (17-59); Alkaline Phosphatase 179 U/L (38-126); Anion Gap 14 mmol/L; Blood Urea Nitrogen 22 mg/dL (9-20); Calcium 9.3 mg/dL (8.4-10.2); Carbon Dioxide 24 mmol/L (22-30); Chloride 100 mmol/L (98-107); Glucose 142 mg/dL (74-99); Non-African American GFR(MDRD) >60 (>60 ml/min/1.73 sqM); Potassium 4.2 mmol/L (3.5-5.1); Sodium 138 mmol/L (137-145); Total Bilirubin 0.4 mg/dL (0.2-1.3); Total Protein 6.9 g/dL (6.3-8.2)
== END | disposition home or self-care (01) ==
LOC: LABWHC1 15:36
DX: K70.31 Alcoholic cirrhosis of liver with ascites (principal)
CPT/HCPCS: 36415; 80053; 82140; 85027

== ENCOUNTER → 2017-04-16 | Outpatient (CLI) | payer BC ==
--- NOTE | 2017-04-22 10:47 | P.ARTDOP ---
Arterial Doppler LOWER EXTREMITY ARTERIAL DOPPLER: DATE OF SERVICE: 04/16/2017 Reason for study: Suspected PVD. Doppler waveforms: Multiphasic bilaterally throughout. Pulse volume recording: Normal configuration throughout although toes are somewhat blunted. Pressure gradients: Mild gradient at the toe level Ankle-brachial indices: Greater than 1 bilaterally. Toe pressures: 44 on the right, 44 on the left Impression: Entirely normal proximal study. Decreased toe pressures may be related to vasospasm or mild distal disease. Suspect .
--- NOTE | 2017-04-22 10:49 | P.ARTDOP ---
Arterial Doppler LOWER EXTREMITY ARTERIAL DOPPLER: DATE OF SERVICE: 04/13/2017 Reason for study: Left ankle ulcer postop.. Doppler waveforms: Multiphasic bilaterally throughout. Pulse volume recording: Normal configuration even at the toe level. Pressure gradients: None. Ankle-brachial indices: Greater than 1 bilaterally. Toe pressures: 108 on the right, 109 on the left Impression: Normal study.
== END | disposition home or self-care (01) ==
LOC: RADUSWWP 12:18
PROVIDERS: ATTEND Family Medicine
DX: I73.9 Peripheral vascular disease, unspecified (principal)
CPT/HCPCS: 93923

== ENCOUNTER 2018-04-29 16:02 | Inpatient (IN) | payer BC ==
[2018-04-29] MEDS ORDERED: SODIUM CHLORIDE 0.9% 1,000 ML IV ONE (16:10)
--- NOTE | 2018-04-29 16:33 | ED ---
General Adult HPI - General Chief complaint: Altered Mental Status Stated complaint: ETOH Source: family, EMS Mode of arrival: EMS Limitations: no limitations - History of Present Illness Initial comments: Dictation was produced using [employer] dictation software. please excuse any grammatical, word or spelling errors. Chief Complaint: 47-year-old male past medical history of advanced liver disease, cirrhosis, GERD, pneumonia presents with altered mental status. History of Present Illness: She is altered and is unable to provide HPI at this time. was at bedside provides HPI. reports that earlier this week he was brought to the primary care physician's office for worsening debility, and poor appetite. Patient has been refusing medical treatment last several days. reports that PCP recommended paracentesis. Today K moment she saw patient was mildly unresponsive. She noted a plastic bottle of vodka next to him with cigarette butts. EMS was called and patient did come to the emergency department voluntarily. reports the patient has been admitted to the hospital in the past for hepatic encephalopathy. The ROS documented in this emergency department record has been reviewed and confirmed by me. Those systems with pertinent positive or negative responses have been documented in the HPI. All other systems are other negative and/or noncontributory. - Related Data Home Medications Medication Instructions Recorded Confirmed Buprenorphine HCl/Naloxone HCl 1 film SL TID 11/04/16 04/29/18 [Suboxone 8 mg-2 mg Sl Film] Armodafinil [Nuvigil] 250 mg PO DAILY 04/29/18 04/29/18 Betamethasone Dipropionate 1 applic TOPICAL BID 04/29/18 04/29/18 [Betamethasone Dipropionate 0.05%] Previous Rx's Medication Instructions Recorded Thiamine [Vitamin B-1] 100 mg PO DAILY #30 tab 11/06/16 Furosemide [Lasix] 40 mg PO DAILY #30 tab 01/15/17 Allergies Allergy/AdvReac Type Severity Reaction Status Date / Time No Known Allergies Allergy Verified 04/29/18 16:03 Review of Systems ROS Statement: Those systems with pertinent positive or pertinent negative responses have been documented in the HPI. ROS Other: All systems not noted in ROS Statement are negative. Past Medical History Past Medical History: GERD/Reflux, Liver Disease, Pneumonia Additional Past Medical History / Comment(s): back pain,ascities, cirrhosis, pancreatitis, pleural effusions. History of Any Multi-Drug Resistant Organisms: None Reported Past Surgical History: Adenoidectomy, Back Surgery, Hernia Repair, Tonsillectomy Additional Past Surgical History / Comment(s): OPEN HEART SURGERY A CHILD FOR A PIECE OF GLASS LODGED IN HIS HEART, large volume Paracentesis, RT INGUINAL HERNIA Past Anesthesia/Blood Transfusion Reactions: No Reported Reaction Past Psychological History: No Psychological Hx Reported Smoking Status: Former smoker Past Alcohol Use History: None Reported, Daily Past Drug Use History: Opiates - Past Family History Father History Unknown: Yes Additional Family Medical History / Comment(s): HEALTHY Mother Family Medical History: Diabetes Mellitus General Exam - General Exam Comments Initial Comments: PHYSICAL EXAM: General Impression: Lethargic, not in acute distress, smells of EtOH, combative HEENT: Scleral icterus Cardiovascular: Tachycardic Chest: Lungs clear to auscultation bilaterally, no rhonchi, no wheeze, no rales Abdomen: Distended abdomen, mild fluid wave Musculoskeletal: Pulses present and equal in all extremities, no peripheral edema Motor: Moves all extremity is grossly Neurological: Positive asterixis, no focal neurologic deficit Skin: Icteric skin Psych: Not tested Limitations: no limitations Course Vital Signs 04/29/18 04/29/18 04/29/18 16:03 16:49 17:23 Temperature 98.3 F Pulse Rate 103 H 89 94 Respiratory 20 18 18 Rate Blood Pressure 102/65 90/57 102/60 O2 Sat by Pulse 92 L 94 L 96 Oximetry Medical Decision Making - Medical Decision Making ED course: 47-year-old male presents with altered mental status. Patient has extensive history of liver disease and subsequent sequela. Signs upon arrival shows heart rate of 103, 92% on room air. He is afebrile. Laboratory evaluation obtained. Patient has a hemoglobin of 11.4 which is at his baseline. Patient has had thrombocytopenia with platelet level of 125. Coag panel shows INR 1.6. Sodium is 128. Patient given fluids. There is mild non-gap acidosis. Creatinine elevated showing signs of acute kidney injury. Glucose 106. Elevated liver enzymes. Total bilirubin is 7.4. Ammonia level is markedly elevated at 265. Serum alcohol is negative. Brain CT and chest x- ray shows no acute processes. At this point patient's symptoms reflect hepatic encephalopathy from hyperammonemia. Patient given rectal lactulose. Patient also given intravenous fluids. he'll be admitted to hospitalist for further care. Patient also ordered for magnesium for prolonged QT. EKG Interpretation: EKG interpretation: Ventricular rate 93. Normal sinus rhythm. AR interval 166 QRS 88 QTC 507. QTc is mildly prolonged. Patient given magnesium. - Lab Data Result diagrams: 04/29/18 16:31 04/29/18 16:31 Lab Results 04/29/18 04/29/18 04/29/18 Range/Units 16:31 16:31 16:31 WBC 7.6 (3.8-10.6) k/uL RBC 3.11 L (4.30-5.90) m/uL Hgb 11.4 L (13.0-17.5) gm/dL Hct 34.5 L (39.0-53.0) % MCV 110.8 H (80.0-100.0) fL MCH 36.6 H (25.0-35.0) pg MCHC 33.0 (31.0-37.0) g/dL RDW 16.1 H (11.5-15.5) % Plt Count 125 L (150-450) k/uL Neutrophils % 71 % Lymphocytes % 19 % Monocytes % 7 % Eosinophils % 1 % Basophils % 0 % Neutrophils # 5.4 (1.3-7.7) k/uL Lymphocytes # 1.4 (1.0-4.8) k/uL Monocytes # 0.5 (0-1.0) k/uL Eosinophils # 0.1 (0-0.7) k/uL Basophils # 0.0 (0-0.2) k/uL Manual Slide Review Performed Polychromasia Present Anisocytosis Slight Macrocytosis Marked PT (9.0-12.0) sec INR (<1.2) APTT (22.0-30.0) sec Sodium 128 L (137-145) mmol/L Potassium 3.8 (3.5-5.1) mmol/L Chloride 84 L (98-107) mmol/L Carbon Dioxide 34 H (22-30) mmol/L Anion Gap 10 mmol/L BUN 18 (9-20) mg/dL Creatinine 1.40 H (0.66-1.25) mg/dL Est GFR (CKD-EPI)AfAm 68 (>60 ml/min/1.73 sqM) Est GFR (CKD-EPI)NonAf 59 (>60 ml/min/1.73 sqM) Glucose 106 H (74-99) mg/dL POC Glucose (mg/dL) (75-99) mg/dL POC Glu Nutritionist ID Calcium 7.9 L (8.4-10.2) mg/dL Total Bilirubin 7.4 H (0.2-1.3) mg/dL AST 105 H (17-59) U/L ALT 84 H (21-72) U/L Alkaline Phosphatase 311 H (38-126) U/L Ammonia (<30) umol/L Total Creatine Kinase 36 L (55-170) U/L CK-MB (CK-2) 1.3 (0.0-2.4) ng/mL CK-MB (CK-2) Rel Index 3.6 Troponin I <0.012 (0.000-0.034) ng/mL Total Protein 5.7 L (6.3-8.2) g/dL Albumin 2.5 L (3.5-5.0) g/dL Serum Alcohol <10 mg/dL 04/29/18 04/29/18 04/29/18 Range/Units 16:31 16:31 16:35 WBC (3.8-10.6) k/uL RBC (4.30-5.90) m/uL Hgb (13.0-17.5) gm/dL Hct (39.0-53.0) % MCV (80.0-100.0) fL MCH (25.0-35.0) pg MCHC (31.0-37.0) g/dL RDW (11.5-15.5) % Plt Count (150-450) k/uL Neutrophils % % Lymphocytes % % Monocytes % % Eosinophils % % Basophils % % Neutrophils # (1.3-7.7) k/uL Lymphocytes # (1.0-4.8) k/uL Monocytes # (0-1.0) k/uL Eosinophils # (0-0.7) k/uL Basophils # (0-0.2) k/uL Manual Slide Review Polychromasia Anisocytosis Macrocytosis PT 14.8 H (9.0-12.0) sec INR 1.6 H (<1.2) APTT 28.2 (22.0-30.0) sec Sodium (137-145) mmol/L Potassium (3.5-5.1) mmol/L Chloride (98-107) mmol/L Carbon Dioxide (22-30) mmol/L Anion Gap mmol/L BUN (9-20) mg/dL Creatinine (0.66-1.25) mg/dL Est GFR (CKD-EPI)AfAm (>60 ml/min/1.73 sqM) Est GFR (CKD-EPI)NonAf (>60 ml/min/1.73 sqM) Glucose (74-99) mg/dL POC Glucose (mg/dL) 115 H (75-99) mg/dL POC Glu Nutritionist ID Esthela Jennings Calcium (8.4-10.2) mg/dL Total Bilirubin (0.2-1.3) mg/dL AST (17-59) U/L ALT (21-72) U/L Alkaline Phosphatase (38-126) U/L Ammonia 265 H (<30) umol/L Total Creatine Kinase (55-170) U/L CK-MB (CK-2) (0.0-2.4) ng/mL CK-MB (CK-2) Rel Index Troponin I (0.000-0.034) ng/mL Total Protein (6.3-8.2) g/dL Albumin (3.5-5.0) g/dL Serum Alcohol mg/dL Disposition Clinical Impression: Hepatic encephalopathy, Prolonged QT interval Disposition: ADMITTED IP TO THIS [facility] Condition: Poor Referrals: Alexander Randhawa MD [Primary Care Provider] - 1-2 days Decision Time: 18:10
[2018-04-29 16:37] LABS: Glucose,Whole Blood 115 mg/dL (75-99)
[2018-04-29 16:50] LABS: Anisocytosis Slight; Basophils % (A) 0 %; Eosinophils # (A) 0.1 k/uL (0-0.7); Eosinophils % (A) 1 %; HCT 34.5 % (39.0-53.0); HGB 11.4 gm/dL (13.0-17.5); Lymphocytes # (A) 1.4 k/uL (1.0-4.8); Lymphocytes % (A) 19 %; MCH 36.6 pg (25.0-35.0); MCV 110.8 fL (80.0-100.0); Macrocytosis Marked; Monocytes # (A) 0.5 k/uL (0-1.0); Monocytes % (A) 7 %; Neutrophils # (A) 5.4 k/uL (1.3-7.7); Neutrophils % (A) 71 %; Platelet Count 125 k/uL (150-450); RBC 3.11 m/uL (4.30-5.90); RDW 16.1 % (11.5-15.5); WBC 7.6 k/uL (3.8-10.6)
[2018-04-29 17:08] LABS: Creatine Kinase 36 U/L (55-170); INR 1.6 (<1.2); Partial Thromboplastin Time 28.2 sec (22.0-30.0); Prothrombin Time 14.8 sec (9.0-12.0)
[2018-04-29 17:09] LABS: ALT 84 U/L (21-72); AST 105 U/L (17-59); Albumin 2.5 g/dL (3.5-5.0); Alcohol <10 mg/dL; Alkaline Phosphatase 311 U/L (38-126); Anion Gap 10 mmol/L; Blood Urea Nitrogen 18 mg/dL (9-20); Calcium 7.9 mg/dL (8.4-10.2); Carbon Dioxide 34 mmol/L (22-30); Chloride 84 mmol/L (98-107); Glucose 106 mg/dL (74-99); Potassium 3.8 mmol/L (3.5-5.1); Sodium 128 mmol/L (137-145); Total Bilirubin 7.4 mg/dL (0.2-1.3); Total Protein 5.7 g/dL (6.3-8.2)
--- NOTE | 2018-04-29 17:10 | CT ---
EXAMINATION TYPE: CT brain wo con DATE OF EXAM: 04/29/2018 COMPARISON: None HISTORY: Altered mental status CT DLP: 851.2 mGycm. Automated Exposure Control for Dose Reduction was Utilized. TECHNIQUE: CT scan of the head is performed without contrast. FINDINGS: Ventricles of normal size. There is no mass effect nor midline shift. There is no sign of intracranial hemorrhage. Calvarium is intact. IMPRESSION: Negative CT scan of the brain.
[2018-04-29 17:19] LABS: Creatine Kinase MB 1.3 ng/mL (0.0-2.4); Troponin I <0.012 ng/mL (0.000-0.034)
--- NOTE | 2018-04-29 17:35 | XR ---
EXAMINATION TYPE: XR chest 2V DATE OF EXAM: 04/29/2018 COMPARISON: 01/12/2017 HISTORY: Altered mental status TECHNIQUE: Frontal and lateral views of the chest are obtained. FINDINGS: Heart and mediastinum are normal. There is poor respiration. There is crowding of the lowe r lobe lung markings. Bony thorax is intact. There is slight blunting of the posterior costophrenic a ngles. IMPRESSION: Poor inspiration. There is clearing of most of the right pleural fluid compared to old e xam. No heart failure.
[2018-04-29] MEDS ORDERED: LACTULOSE 200 GM/300 ML (FROM 1/2 GAL JUG) RECTAL ONE (17:41)
[2018-04-29 17:47] LABS: Polychromasia Present
[2018-04-29] MEDS ORDERED: LIDOCAINE URO-JET JELLY 2% 5 ML KIT URETHRAL ONE (17:49)
[2018-04-29] MEDS ORDERED: NALOXONE 0.4 MG/ML 1 ML VIAL IV PRN (18:11)
--- NOTE | 2018-04-29 18:46 | P.HPIM ---
History of Present Illness H&P Date: 04/29/18 Chief Complaint: Change in mental status 46-year-old male with a history of alcoholic cirrhosis, portal hypertension and recurrent ascites presents with recurrent ascites, general weakness, frequent falls and unresponsiveness. For the last several days he has been feeling generally weak and fell 3 times. He became unresponsive today. He was found by his when she came back from work around 2:30 PM. When he was seen by his PCP on Thursday he was advised to go to the ER in May to get paracentesis. When I evaluated him in the ER he was not answering questions, he will move when I call his name but would not open his eyes or talk. He has not been having chest pain but he has some progressively worsening shortness of breath with the weakness. Patient was on HF liver transplant list but most recently has been caught drinking several times by his family members. His last paracentesis was last June, after that he did not need paracentesis. In the emergency department he was found to have elevated BUN/creatinine ammonia. Sodium 128. Family denies fever, chills, hematemesis, hematochezia, or melena. Review of Systems Unobtainable secondary to mental status Past Medical History Past Medical History: GERD/Reflux, Liver Disease, Pneumonia Additional Past Medical History / Comment(s): back pain,ascities, cirrhosis, pancreatitis, pleural effusions. History of Any Multi-Drug Resistant Organisms: None Reported Past Surgical History: Adenoidectomy, Back Surgery, Hernia Repair, Tonsillectomy Additional Past Surgical History / Comment(s): OPEN HEART SURGERY A CHILD FOR A PIECE OF GLASS LODGED IN HIS HEART, large volume Paracentesis, RT INGUINAL HERNIA Past Anesthesia/Blood Transfusion Reactions: No Reported Reaction Past Psychological History: No Psychological Hx Reported Smoking Status: Former smoker Past Alcohol Use History: None Reported, Daily Past Drug Use History: Opiates - Past Family History Father History Unknown: Yes Additional Family Medical History / Comment(s): HEALTHY Mother Family Medical History: Diabetes Mellitus Medications and Allergies Home Medications Medication Instructions Recorded Confirmed Type Buprenorphine HCl/Naloxone HCl 1 film SL TID 11/04/16 04/29/18 History [Suboxone 8 mg-2 mg Sl Film] Thiamine [Vitamin B-1] 100 mg PO DAILY #30 tab 01/26/17 07/19/18 Rx Furosemide [Lasix] 40 mg PO DAILY #30 tab 01/15/17 04/29/18 Rx Armodafinil [Nuvigil] 250 mg PO DAILY 04/29/18 04/29/18 History Betamethasone Dipropionate 1 applic TOPICAL BID 04/29/18 04/29/18 History [Betamethasone Dipropionate 0.05%] Allergies Allergy/AdvReac Type Severity Reaction Status Date / Time No Known Allergies Allergy Verified 04/29/18 16:03 Physical Exam Vitals: Vital Signs Temp Pulse Resp BP Pulse Ox 04/29/18 17:23 94 18 102/60 96 04/29/18 16:49 89 18 90/57 94 L 04/29/18 16:03 98.3 F 103 H 20 102/65 92 L Intake and Output 04/29/18 04/29/18 04/29/18 06:59 14:59 22:59 Other: Weight 99.79 kg Constitutional: Stuporous Eyes: Icteric sclerae, moist conjunctiva, no lid-lag, PERRLA, ENMT: Oropharynx clear, no erythema, exudates Neck: Supple, FROM, no masses, or JVD, No carotid bruits, No thyromegaly Lungs: Clear to auscultation, Clear to percussion, Normal respiratory effort, no accessory muscle use Cardiovascular: Heart regular in rate and rhythm, No murmurs, gallops, or rubs, No peripheral edema Abdominal: Distended, soft, no guarding, rebound or rigidity, Normoactive bowel sounds, No hepatomegaly, No splenomegaly, No palpable mass Skin: Normal temperature, tone, texture, turgor, no induration, No subcutaneous nodules, No rash, lesions, No ulcers Extremities: No digital cyanosis, No clubbing, Pedal pulses intact and symmetrical, Radial pulses intact and symmetrical. Neuro: Moving all extremities in response to loud voices and painful stimuli Results CBC & Chem 7: 04/29/18 16:31 04/29/18 16:31 Labs: Abnormal Lab Results - Last 24 Hours (Table) 04/29/18 04/29/18 04/29/18 Range/Units 16:31 16:31 16:31 RBC 3.11 L (4.30-5.90) m/uL Hgb 11.4 L (13.0-17.5) gm/dL Hct 34.5 L (39.0-53.0) % MCV 110.8 H (80.0-100.0) fL MCH 36.6 H (25.0-35.0) pg RDW 16.1 H (11.5-15.5) % Plt Count 125 L (150-450) k/uL PT (9.0-12.0) sec INR (<1.2) Sodium 128 L (137-145) mmol/L Chloride 84 L (98-107) mmol/L Carbon Dioxide 34 H (22-30) mmol/L Creatinine 1.40 H (0.66-1.25) mg/dL Glucose 106 H (74-99) mg/dL POC Glucose (mg/dL) (75-99) mg/dL Calcium 7.9 L (8.4-10.2) mg/dL Total Bilirubin 7.4 H (0.2-1.3) mg/dL AST 105 H (17-59) U/L ALT 84 H (21-72) U/L Alkaline Phosphatase 311 H (38-126) U/L Ammonia (<30) umol/L Total Creatine Kinase 36 L (55-170) U/L Total Protein 5.7 L (6.3-8.2) g/dL Albumin 2.5 L (3.5-5.0) g/dL 04/29/18 04/29/18 04/29/18 Range/Units 16:31 16:31 16:35 RBC (4.30-5.90) m/uL Hgb (13.0-17.5) gm/dL Hct (39.0-53.0) % MCV (80.0-100.0) fL MCH (25.0-35.0) pg RDW (11.5-15.5) % Plt Count (150-450) k/uL PT 14.8 H (9.0-12.0) sec INR 1.6 H (<1.2) Sodium (137-145) mmol/L Chloride (98-107) mmol/L Carbon Dioxide (22-30) mmol/L Creatinine (0.66-1.25) mg/dL Glucose (74-99) mg/dL POC Glucose (mg/dL) 115 H (75-99) mg/dL Calcium (8.4-10.2) mg/dL Total Bilirubin (0.2-1.3) mg/dL AST (17-59) U/L ALT (21-72) U/L Alkaline Phosphatase (38-126) U/L Ammonia 265 H (<30) umol/L Total Creatine Kinase (55-170) U/L Total Protein (6.3-8.2) g/dL Albumin (3.5-5.0) g/dL Assessment and Plan Plan: Acute hepatic encephalopathy Ammonia level elevated Admit to selective care IV fluids Avoid hepatotoxic meds Rectal lactulose GI consult Ascites Likely need paracentesis IR consult Acute renal failure IV fluids as above Avoid nephrotoxic medications Follow up creatinine in the morning Alcoholism Watch for withdrawal CIWA protocol Folic acid, multivitamins and thiamine DVT prophylaxis Heparin subcu
[2018-04-29] MEDS: LACTULOSE 200 GM/300 ML (FROM 1/2 GAL JUG) RECTAL SCH (18:50)
[2018-04-29] MEDS: SODIUM CHLORIDE 0.9% 1,000 ML IV SCH (18:51)
[2018-04-29] MEDS: MAGNESIUM SULFATE-D5W PMX 1 GM in DEXTROSE/WATER 1 100ML.BAG IVPB SCH ×2 (18:52→20:02)
[2018-04-29 19:21] LABS: Appearance,Urine Cloudy (Clear); Bacteria,Urine Many /hpf; Bilirubin,Urine 2+ (Negative); Blood,Urine Negative (Negative); Cellular Casts,Urine 9 /lpf (0); Color,Urine Dark Brown; Glucose,Urine (UA) Negative (Negative); Granular Casts,Urine 24 /lpf (0); Hyaline Casts,Urine 339 /lpf (0-2); Ketones,Urine Negative (Negative); Leukocyte Esterase,Urine Negative (Negative); Mucus,Urine Few /hpf; Nitrite,Urine Negative (Negative); PH, Urine 5.5 (5.0-8.0); Protein,Urine Trace (Negative); Specific Gravity,Urine 1.019 (1.001-1.035); Urobilinogen,Urine >12.0 mg/dL (<2.0); WBC,Urine 1 /hpf (0-5)
[2018-04-29 19:23] LABS: Amphetamine Screen,Urine Not Detected (NotDetected); Barbiturate Screen,Urine Not Detected (NotDetected); Benzodiazepines Screen,Urine Not Detected (NotDetected); Cocaine Screen,Urine Not Detected (NotDetected); Methadone Screen, Urine Not Detected (NotDetected); Opiate Screen,Urine Not Detected (NotDetected); Oxycodone Screen, Urine Not Detected (NotDetected); Phencyclidine Screen,Urine Not Detected (NotDetected); Tricyclic Antidepressant,Urine Not Detected (NotDetected); Urn Cannabinoid Scrn Detected (NotDetected)
[2018-04-30] MEDS ORDERED: HEPARIN SODIUM,PORCINE 5,000 UNIT/ML 1 ML VIAL ONE
[2018-04-30] MEDS ORDERED: LACTULOSE 200 GM/300 ML (FROM 1/2 GAL JUG) ONE
[2018-04-30] MEDS: LACTULOSE 200 GM/300 ML (FROM 1/2 GAL JUG) RECTAL SCH (05:28)
[2018-04-30] MEDS: HEPARIN SODIUM,PORCINE 5,000 UNIT/ML 1 ML VIAL SQ SCH ×4 (05:28→23:30)
[2018-04-30 06:31] LABS: Anisocytosis Slight; Basophils % (A) 0 %; Eosinophils % (A) 0 %; HCT 32.8 % (39.0-53.0); HGB 10.7 gm/dL (13.0-17.5); Lymphocytes # (A) 0.5 k/uL (1.0-4.8); Lymphocytes % (A) 5 %; MCH 36.8 pg (25.0-35.0); MCHC 32.6 g/dL (31.0-37.0); Macrocytosis Marked; Mean Platelet Volume 9.7; Monocytes # (A) 0.6 k/uL (0-1.0); Monocytes % (A) 6 %; Neutrophils # (A) 8.4 k/uL (1.3-7.7); Neutrophils % (A) 87 %; Platelet Count 113 k/uL (150-450); RDW 16.6 % (11.5-15.5); WBC 9.7 k/uL (3.8-10.6)
[2018-04-30 06:32] LABS: MCV 112.9 fL (80.0-100.0)
[2018-04-30 06:34] LABS: Albumin 2.3 g/dL (3.5-5.0); Calcium 7.6 mg/dL (8.4-10.2); Magnesium 1.6 mg/dL (1.6-2.3); Phosphorus 3.7 mg/dL (2.5-4.5); Potassium 3.4 mmol/L (3.5-5.1); Total Bilirubin 8.5 mg/dL (0.2-1.3); Total Protein 5.2 g/dL (6.3-8.2)
[2018-04-30] MEDS ORDERED: LACTULOSE 20 GM/30 ML CUP NG-TUBE STA (07:34)
[2018-04-30] MEDS ORDERED: LACTULOSE 20 GM/30 ML CUP PO ONE ×2 (07:35→08:30)
[2018-04-30 07:39] LABS: ABG Base Excess 7.7 mmol/L; ABG HCO3 31 mmol/L (21-25); ABG Oxygen Saturation 96.2 % (94-97); ABG PCO2 41 mmHg (35-45); ABG PH 7.49 (7.35-7.45); ABG PO2 81 mmHg (83-108); ABG TCO2 32 mmol/L (19-24)
--- NOTE | 2018-04-30 07:40 | P.CONS ---
History of Present Illness - Reason for Consult Consult date: 04/30/18 Hepatic encephalopathy Requesting physician: Kevin Lawrence - History of Present Illness 47-year-old gentleman with a history of opiate dependency maintained on Suboxone chronic alcohol abuse actively drinking with underlying alcohol liver disease cirrhosis portal hypertension ascites paracentesis in 2017 previously evaluated at [facility] transplantation protocol. Patient admitted with mental status changes elevated ammonia level consistent with hepatic encephalopathy. History obtained from patient's secondary to his mental status changes. noticed over last 4 days he was falling stumbling forgetful been becoming more agitated. She found an antique gallon container of vodka yesterday in the home. No reports of hematemesis hematochezia melena. Admission ammonia 265 he became more obtunded through the night was receiving lactulose via enemas. Secondary to his increased somnolence patient was unable to take oral medications. Additional laboratory studies sodium 128. Potassium 3.8. BUN 18. Current and 1.4. Total bilirubin 7.4. AST 105. ALT 84. AP 311. INR 1.8. White count 7.6. Hemoglobin 11.4. MCV 110. Platelet 113-125. CT brain negative. Home medications include lactulose and Lasix however spouse states he stopped taking his lactulose secondary to diarrhea. Review of Systems Obtained from spouse Constitutional: Denies fever, chills, sweats, weight gain, or loss. Admitted with mental status changes. HEENT: Negative for migraines, blurred vision or loss, earaches, drainage, tinnitus, oral mucosal lesions, dysphagia, or odynophagia. Cardiac: Negative for chest pain, arrhythmias, or palpitation. Respiratory: Negative for shortness of breath, hemoptysis, cough, or sputum production. Gastrointestinal: See HPI for pertinent findings. Genitourinary: Negative for hematuria, urgency, frequency, polyuria, dysuria, or penile discharge. Musculoskeletal: History of chronic back pain. Neurologic: Negative for stroke or TIA. Endocrine: Negative for thyroid problems. Skin: Negative for rash or itching. Psychiatric: Negative history for depression and anxiety Past Medical History Past Medical History: GERD/Reflux, Liver Disease, Pneumonia Additional Past Medical History / Comment(s): back pain,ascities, cirrhosis, pancreatitis, pleural effusions. History of Any Multi-Drug Resistant Organisms: None Reported Past Surgical History: Adenoidectomy, Back Surgery, Hernia Repair, Tonsillectomy Additional Past Surgical History / Comment(s): OPEN HEART SURGERY A CHILD FOR A PIECE OF GLASS LODGED IN HIS HEART, large volume Paracentesis, RT INGUINAL HERNIA Past Anesthesia/Blood Transfusion Reactions: No Reported Reaction Past Psychological History: No Psychological Hx Reported Additional Psychological History / Comment(s): 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 LIVES IN HOME WITH JARVIS. 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 NO OUTSIDE SERVICES. NO HOSPITAL EQUIPMENT. HAS 3 STEPS INTO HOME- HOUSE IN ONE LEVEL. 2 INDOOR CATS. 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 Smoking Status: Former smoker Past Alcohol Use History: None Reported, Daily Additional Past Alcohol Use History / Comment(s): STARTED SMOKING IN 1996, SMOKED 1PPD QUIT 01/07/17, PAST DAILY ETOH-QUIT SEP 2016 Past Drug Use History: Marijuana, Opiates Additional Drug Use History / Comment(s): previous opiate dependance, currently uses suboxone - Past Family History Father History Unknown: Yes Additional Family Medical History / Comment(s): HEALTHY Mother Family Medical History: Diabetes Mellitus Medications and Allergies Home Medications Medication Instructions Recorded Confirmed Type Buprenorphine HCl/Naloxone HCl 1 film SL TID 11/04/16 04/29/18 History [Suboxone 8 mg-2 mg Sl Film] Thiamine [Vitamin B-1] 100 mg PO DAILY #30 tab 11/06/16 04/29/18 Rx Furosemide [Lasix] 40 mg PO DAILY #30 tab 01/15/17 04/29/18 Rx Armodafinil [Nuvigil] 250 mg PO DAILY 04/29/18 04/29/18 History Betamethasone Dipropionate 1 applic TOPICAL BID 04/29/18 04/29/18 History [Betamethasone Dipropionate 0.05%] Allergies Allergy/AdvReac Type Severity Reaction Status Date / Time No Known Allergies Allergy Verified 04/29/18 16:03 Physical Exam Vitals: Vital Signs Temp Pulse Resp BP Pulse Ox 04/29/18 21:19 97.6 F 96 18 101/66 95 04/29/18 20:05 95 18 95/60 95 04/29/18 18:47 94 18 97/53 96 04/29/18 17:23 94 18 102/60 96 04/29/18 16:49 89 18 90/57 94 L 04/29/18 16:03 98.3 F 103 H 20 102/65 92 L Intake and Output 04/29/18 04/30/18 04/30/18 22:59 06:59 14:59 Output Total 250 Balance -250 Output: Urine 250 Uretheral (Iyer) 250 Other: Weight 104.326 kg 103 kg General appearance: The patient is unarousable obtunded. Somnolent. Jaundice. HET: Head is normocephalic and atraumatic. Pupils are equal and reactive. Sclerae icterus. Oropharynx is clear without lesions. Neck: Supple without lymphadenopathy. Trachea midline. Heart: S1 S2. Regular rate and rhythm. Lungs: Poor inspiratory effort. Shallow breathing decreased in bases bilaterally. Abdomen: Soft, nontender, mildly distended with bowel sounds. No peritoneal signs. No palpable organomegaly or masses. Extremities: Normal skin color and turgor. No cyanosis, rash, ulceration, clubbing, or edema. Radial and pedal pulses are 2/4 bilaterally. Neurological: Withdrawal to painful stimuli moving all extremities. Results CBC & Chem 7: 04/30/18 05:58 04/30/18 05:58 Labs: Abnormal Lab Results - Last 24 Hours (Table) 04/29/18 04/29/18 04/29/18 Range/Units 16:31 16:31 16:31 RBC 3.11 L (4.30-5.90) m/uL Hgb 11.4 L (13.0-17.5) gm/dL Hct 34.5 L (39.0-53.0) % MCV 110.8 H (80.0-100.0) fL MCH 36.6 H (25.0-35.0) pg RDW 16.1 H (11.5-15.5) % Plt Count 125 L (150-450) k/uL Neutrophils # (1.3-7.7) k/uL Lymphocytes # (1.0-4.8) k/uL PT (9.0-12.0) sec INR (<1.2) Sodium 128 L (137-145) mmol/L Potassium (3.5-5.1) mmol/L Chloride 84 L (98-107) mmol/L Carbon Dioxide 34 H (22-30) mmol/L Creatinine 1.40 H (0.66-1.25) mg/dL Glucose 106 H (74-99) mg/dL POC Glucose (mg/dL) (75-99) mg/dL Calcium 7.9 L (8.4-10.2) mg/dL Total Bilirubin 7.4 H (0.2-1.3) mg/dL AST 105 H (17-59) U/L ALT 84 H (21-72) U/L Alkaline Phosphatase 311 H (38-126) U/L Ammonia (<30) umol/L Total Creatine Kinase 36 L (55-170) U/L Total Protein 5.7 L (6.3-8.2) g/dL Albumin 2.5 L (3.5-5.0) g/dL Urine Protein (Negative) Urine Bilirubin (Negative) Urine Bacteria (None) /hpf Hyaline Casts (0-2) /lpf Urine Mucus (None) /hpf U Marijuana (THC) Screen (NotDetected) 04/29/18 04/29/18 04/29/18 Range/Units 16:31 16:31 16:35 RBC (4.30-5.90) m/uL Hgb (13.0-17.5) gm/dL Hct (39.0-53.0) % MCV (80.0-100.0) fL MCH (25.0-35.0) pg RDW (11.5-15.5) % Plt Count (150-450) k/uL Neutrophils # (1.3-7.7) k/uL Lymphocytes # (1.0-4.8) k/uL PT 14.8 H (9.0-12.0) sec INR 1.6 H (<1.2) Sodium (137-145) mmol/L Potassium (3.5-5.1) mmol/L Chloride (98-107) mmol/L Carbon Dioxide (22-30) mmol/L Creatinine (0.66-1.25) mg/dL Glucose (74-99) mg/dL POC Glucose (mg/dL) 115 H (75-99) mg/dL Calcium (8.4-10.2) mg/dL Total Bilirubin (0.2-1.3) mg/dL AST (17-59) U/L ALT (21-72) U/L Alkaline Phosphatase (38-126) U/L Ammonia 265 H (<30) umol/L Total Creatine Kinase (55-170) U/L Total Protein (6.3-8.2) g/dL Albumin (3.5-5.0) g/dL Urine Protein (Negative) Urine Bilirubin (Negative) Urine Bacteria (None) /hpf Hyaline Casts (0-2) /lpf Urine Mucus (None) /hpf U Marijuana (THC) Screen (NotDetected) 04/29/18 04/30/18 04/30/18 Range/Units 18:47 05:58 05:58 RBC 2.90 L (4.30-5.90) m/uL Hgb 10.7 L (13.0-17.5) gm/dL Hct 32.8 L (39.0-53.0) % MCV 112.9 H (80.0-100.0) fL MCH 36.8 H (25.0-35.0) pg RDW 16.6 H (11.5-15.5) % Plt Count 113 L (150-450) k/uL Neutrophils # 8.4 H (1.3-7.7) k/uL Lymphocytes # 0.5 L (1.0-4.8) k/uL PT (9.0-12.0) sec INR (<1.2) Sodium 129 L (137-145) mmol/L Potassium 3.4 L (3.5-5.1) mmol/L Chloride 87 L (98-107) mmol/L Carbon Dioxide 31 H (22-30) mmol/L Creatinine 1.73 H (0.66-1.25) mg/dL Glucose 115 H (74-99) mg/dL POC Glucose (mg/dL) (75-99) mg/dL Calcium 7.6 L (8.4-10.2) mg/dL Total Bilirubin 8.5 H (0.2-1.3) mg/dL AST 86 H (17-59) U/L ALT (21-72) U/L Alkaline Phosphatase 265 H (38-126) U/L Ammonia (<30) umol/L Total Creatine Kinase (55-170) U/L Total Protein 5.2 L (6.3-8.2) g/dL Albumin 2.3 L (3.5-5.0) g/dL Urine Protein Trace H (Negative) Urine Bilirubin 2+ H (Negative) Urine Bacteria Many H (None) /hpf Hyaline Casts 339 H (0-2) /lpf Urine Mucus Few H (None) /hpf U Marijuana (THC) Screen Detected H (NotDetected) Assessment and Plan (1) Hepatic encephalopathy Narrative/Plan: Severe hepatic encephalopathy underlying metabolic encephalopathy Current Visit: Yes Status: Chronic Code(s): K72.90 - HEPATIC FAILURE, UNSPECIFIED WITHOUT COMA SNOMED Code(s): 90078365 (2) Cirrhosis Current Visit: Yes Status: Acute Code(s): K74.60 - UNSPECIFIED CIRRHOSIS OF LIVER SNOMED Code(s): 15915377 (3) Alcoholic liver disease Current Visit: No Status: Acute Code(s): K70.9 - ALCOHOLIC LIVER DISEASE, UNSPECIFIED SNOMED Code(s): 79217978 (4) Portal hypertension Current Visit: No Status: Chronic Code(s): K76.6 - PORTAL HYPERTENSION SNOMED Code(s): 10467976 (5) Alcoholic hepatitis Current Visit: Yes Status: Acute Code(s): K70.10 - ALCOHOLIC HEPATITIS WITHOUT ASCITES SNOMED Code(s): 646138973 (6) Acute respiratory failure Current Visit: Yes Status: Acute Code(s): J96.00 - ACUTE RESPIRATORY FAILURE , UNSP W HYPOXIA OR HYPERCAPNIA SNOMED Code(s): 09086280 (7) Hyponatremia Current Visit: Yes Status: Acute Code(s): E87.1 - HYPO-OSMOLALITY AND HYPONATREMIA SNOMED Code(s): 65927954 (8) Thrombocytopenia Current Visit: Yes Status: Acute Code(s): D69.6 - THROMBOCYTOPENIA, UNSPECIFIED SNOMED Code(s): 622226302 (9) Coagulopathy Current Visit: Yes Status: Acute Code(s): D68.9 - COAGULATION DEFECT, UNSPECIFIED SNOMED Code(s): 94334257 Plan: 1. NG tube insertion. Lactulose 30 g every hour until patient starts passing bowel movements. Xifaxan 550 mg twice daily. Ammonia level now and in 4 hours as well as daily. ICU transfer. Intubation. 2. Protonix 40 mg IV daily. Thank you for this kind referral and the opportunity to participate in the care of your patient. This consultation was discussed with Dr. Peñaloza. The impression and plan of care have been directed as dictated.
[2018-04-30] MEDS ORDERED: IPRATROPIUM-ALBUTEROL 3 ML NEB INHALATION PRN (07:55)
[2018-04-30] MEDS ORDERED: PROPOFOL 100 ML IV ONE (07:59)
[2018-04-30] MEDS ORDERED: SODIUM CHLORIDE 0.9% 500 ML IV ONE (08:03)
[2018-04-30] MEDS: PROPOFOL 1,000 MG in EMPTY BAG 1 BAG IV SCH (08:05)
[2018-04-30] MEDS ORDERED: Potassium Replacement Protocol 1 EACH MISC MISCELLANE PRN ×2 (08:11→19:41)
[2018-04-30] MEDS ORDERED: Magnesium Replacement Protocol 1 EACH MISC MISCELLANE PRN (08:11)
--- NOTE | 2018-04-30 08:30 | P.PN ---
Subjective Progress Note Date: 04/30/18 Principal diagnosis: altered mentation Patient is a 47-year-old male with a past medical history of alcoholic cirrhosis follows with Dr. Willard, portal hypertension, recurrent ascites, and pancreatitis who presented to the emergency department with decreased responsiveness. In the ER he underwent extensive evaluation. On arrival he was found to be tachycardic with pulse rate of 103. Initial EKG showed a prolonged QT, chest x-ray showed no acute process, and head CT was negative. Initial blood work showed thrombocytopenia, anemia, hyponatremia, acute kidney injury, and an elevated ammonia 265. He received 1 dose of rectal lactulose in the ER. He was admitted to the selective care unit. Overnight he became more obtunded. Called by GI nurse practitioner Mari regarding his altered mentation on the morning of 04/30 at approximately 7:10 AM. Immediately proceeded at bedside. Patient was lethargic, agonal respirations, and difficult to arouse. Vital signs showed slightly low blood pressure 85/58 but this maybe near baseline with his history of cirrhosis. Stat ABG was obtained and an A-team was called. ABG was within normal limits. Patient had an NG tube placed and had no cough or noted. He was subsequently emergently intubated by anesthesia secondary to inability to protect his airway. He was given a stat dose of lactulose down his NGT. He will be moved to the ICU. Dr. Turner was notified. He did have signs of aspiration related to intubate him and he will be started on prophylactic Zosyn for possible aspiration. Chest x-ray is currently pending. 2 IVs were obtained. was updated by both Mari and myself. Nursing present at beside. Patient unarousable. Objective - Vital Signs Vital signs: Vital Signs Temp 97.6 F 04/29/18 21:19 Pulse 96 04/29/18 21:19 Resp 18 04/29/18 21:19 BP 101/66 04/29/18 21:19 Pulse Ox 95 04/29/18 21:19 Intake & Output 04/29/18 04/30/18 04/30/18 18:59 06:59 18:59 Output Total 250 Balance -250 Weight 99.79 kg 103 kg Output: Urine 250 Uretheral (Iyer) 250 - Exam General: ill appearing, somnolent, moderate distress, appears at stated age Derm: warm, dry, multiple excoriation on b/l LE. Head: atraumatic, normocephalic, symmetric Eyes: Pupils equal round reactive to light, patient not tracking finger, no lid lag, anicteric sclera Mouth: no lip lesion, mucous membranes dry Cardiovascular: On S2 tachycardic without murmur, positive posterior tibial pulse bilateral, Lungs: Faint breath sounds bilateral bases, + accessory muscle use, no accessory muscle use Abdominal: soft, nontender to palpation, no guarding, no appreciable organomegaly Ext: no gross muscle atrophy, no edema, no contractures Neuro: Absent cough, absent gag, withdrawal to painful stimuli in bilateral upper extremities, moving lower extremities independently Psych: Somnolent - Labs CBC & Chem 7: 04/30/18 05:58 04/30/18 05:58 Labs: Abnormal Lab Results - Last 24 Hours (Table) 04/29/18 04/29/18 04/29/18 Range/Units 16:31 16:31 16:31 RBC 3.11 L (4.30-5.90) m/uL Hgb 11.4 L (13.0-17.5) gm/dL Hct 34.5 L (39.0-53.0) % MCV 110.8 H (80.0-100.0) fL MCH 36.6 H (25.0-35.0) pg RDW 16.1 H (11.5-15.5) % Plt Count 125 L (150-450) k/uL Neutrophils # (1.3-7.7) k/uL Lymphocytes # (1.0-4.8) k/uL PT (9.0-12.0) sec INR (<1.2) Sodium 128 L (137-145) mmol/L Potassium (3.5-5.1) mmol/L Chloride 84 L (98-107) mmol/L Carbon Dioxide 34 H (22-30) mmol/L Creatinine 1.40 H (0.66-1.25) mg/dL Glucose 106 H (74-99) mg/dL POC Glucose (mg/dL) (75-99) mg/dL Calcium 7.9 L (8.4-10.2) mg/dL Total Bilirubin 7.4 H (0.2-1.3) mg/dL AST 105 H (17-59) U/L ALT 84 H (21-72) U/L Alkaline Phosphatase 311 H (38-126) U/L Ammonia (<30) umol/L Total Creatine Kinase 36 L (55-170) U/L Total Protein 5.7 L (6.3-8.2) g/dL Albumin 2.5 L (3.5-5.0) g/dL Urine Protein (Negative) Urine Bilirubin (Negative) Urine Bacteria (None) /hpf Hyaline Casts (0-2) /lpf Urine Mucus (None) /hpf U Marijuana (THC) Screen (NotDetected) 04/29/18 04/29/18 04/29/18 Range/Units 16:31 16:31 16:35 RBC (4.30-5.90) m/uL Hgb (13.0-17.5) gm/dL Hct (39.0-53.0) % MCV (80.0-100.0) fL MCH (25.0-35.0) pg RDW (11.5-15.5) % Plt Count (150-450) k/uL Neutrophils # (1.3-7.7) k/uL Lymphocytes # (1.0-4.8) k/uL PT 14.8 H (9.0-12.0) sec INR 1.6 H (<1.2) Sodium (137-145) mmol/L Potassium (3.5-5.1) mmol/L Chloride (98-107) mmol/L Carbon Dioxide (22-30) mmol/L Creatinine (0.66-1.25) mg/dL Glucose (74-99) mg/dL POC Glucose (mg/dL) 115 H (75-99) mg/dL Calcium (8.4-10.2) mg/dL Total Bilirubin (0.2-1.3) mg/dL AST (17-59) U/L ALT (21-72) U/L Alkaline Phosphatase (38-126) U/L Ammonia 265 H (<30) umol/L Total Creatine Kinase (55-170) U/L Total Protein (6.3-8.2) g/dL Albumin (3.5-5.0) g/dL Urine Protein (Negative) Urine Bilirubin (Negative) Urine Bacteria (None) /hpf Hyaline Casts (0-2) /lpf Urine Mucus (None) /hpf U Marijuana (THC) Screen (NotDetected) 04/29/18 04/30/18 04/30/18 Range/Units 18:47 05:58 05:58 RBC 2.90 L (4.30-5.90) m/uL Hgb 10.7 L (13.0-17.5) gm/dL Hct 32.8 L (39.0-53.0) % MCV 112.9 H (80.0-100.0) fL MCH 36.8 H (25.0-35.0) pg RDW 16.6 H (11.5-15.5) % Plt Count 113 L (150-450) k/uL Neutrophils # 8.4 H (1.3-7.7) k/uL Lymphocytes # 0.5 L (1.0-4.8) k/uL PT (9.0-12.0) sec INR (<1.2) Sodium 129 L (137-145) mmol/L Potassium 3.4 L (3.5-5.1) mmol/L Chloride 87 L (98-107) mmol/L Carbon Dioxide 31 H (22-30) mmol/L Creatinine 1.73 H (0.66-1.25) mg/dL Glucose 115 H (74-99) mg/dL POC Glucose (mg/dL) (75-99) mg/dL Calcium 7.6 L (8.4-10.2) mg/dL Total Bilirubin 8.5 H (0.2-1.3) mg/dL AST 86 H (17-59) U/L ALT (21-72) U/L Alkaline Phosphatase 265 H (38-126) U/L Ammonia (<30) umol/L Total Creatine Kinase (55-170) U/L Total Protein 5.2 L (6.3-8.2) g/dL Albumin 2.3 L (3.5-5.0) g/dL Urine Protein Trace H (Negative) Urine Bilirubin 2+ H (Negative) Urine Bacteria Many H (None) /hpf Hyaline Casts 339 H (0-2) /lpf Urine Mucus Few H (None) /hpf U Marijuana (THC) Screen Detected H (NotDetected) 07/20/18 Range/Units 07:36 RBC (4.30-5.90) m/uL Hgb (13.0-17.5) gm/dL Hct (39.0-53.0) % MCV (80.0-100.0) fL MCH (25.0-35.0) pg RDW (11.5-15.5) % Plt Count (150-450) k/uL Neutrophils # (1.3-7.7) k/uL Lymphocytes # (1.0-4.8) k/uL PT (9.0-12.0) sec INR (<1.2) Sodium (137-145) mmol/L Potassium (3.5-5.1) mmol/L Chloride (98-107) mmol/L Carbon Dioxide (22-30) mmol/L Creatinine (0.66-1.25) mg/dL Glucose (74-99) mg/dL POC Glucose (mg/dL) (75-99) mg/dL Calcium (8.4-10.2) mg/dL Total Bilirubin (0.2-1.3) mg/dL AST (17-59) U/L ALT (21-72) U/L Alkaline Phosphatase (38-126) U/L Ammonia 149 H (<30) umol/L Total Creatine Kinase (55-170) U/L Total Protein (6.3-8.2) g/dL Albumin (3.5-5.0) g/dL Urine Protein (Negative) Urine Bilirubin (Negative) Urine Bacteria (None) /hpf Hyaline Casts (0-2) /lpf Urine Mucus (None) /hpf U Marijuana (THC) Screen (NotDetected) Assessment and Plan Assessment: Metabolic encephalopathy secondary to hepatic encephalopathy -Stat ammonia level is decreasing -We'll proceed with lactulose every hour until bowel movement as discussed with GI then proceed to every 4 hours -Xifaxan ordered -Repeat chest x-ray -Urinalysis appears normal -Head CT from yesterday was unremarkable Acute respiratory failure secondary to inability to protect airway -Signs of aspiration on intubation with secretions at the back of his throat and coughing up secretions -Prophylactic Zosyn -Follow chest x-rays -Pulmonary hygiene -Critical care consult Cirrhosis secondary to alcohol use. -Concern that he may have relapsed -Monitor for signs of recurrent ascites -GI recommendations Coagulopathy - likely due to liver disease - repeat INR Acute kidney injury, baseline creatinine 0.9 -IV fluids -Maintain map greater than 65 -Monitor renal function and avoid additional nephrotoxic agents -Follow renal profile in a.m. -Monitor closely for signs of hepatorenal syndrome Hyponatremia -Suspect secondary to osteoporosis versus dehydration -IV fluids -Repeat sodium level this afternoon -Check urine sodium and osmolality Thrombocytopenia -Likely reactive to stress on top of sequestration -Follow CBC Chronic anemia, and or near baseline -Follow CBC as outpatient -Check a folic acid and B12 levels DVT prophylaxis: Heparin Discussed with: , nursing, GI, Dr. Matos Anticipated discharge: 4-[address]: home A total of 45 minutes of critical care time was spent with this complex patient not inclusive of procedures.
--- NOTE | 2018-04-30 08:34 | XR ---
EXAMINATION TYPE: XR chest 1V portable DATE OF EXAM: 04/30/2018 CLINICAL HISTORY: Difficulty breathing had to be intubated TECHNIQUE: Single AP portable frontal view of the chest is obtained. COMPARISON: Chest x-ray from one day earlier. CT abdomen and pelvis January 2017 FINDINGS: There is new endotracheal tube terminating just above clavicles, approximately 4 to 5 cm a yovanny the angie. There is new orogastric tube just projecting below diaphragm. There is coiled compon ent noted above diaphragm. This is likely within small to moderate size hiatal hernia is seen on CT a bdomen study. Cannot localize tip above or below diaphragm. There is persistent right greater than left bibasilar opacity on current study. No large pleural effu rolanda or pneumothorax is seen. Cardiac silhouette size is stable and within normal limits. Somewhat lo w lung volumes redemonstrated. Osseous structures are intact. IMPRESSION: 1. New endotracheal tube satisfactory in position. 2. Coiling of new orogastric tube in hiatal hernia, cannot definitively localize tip below diaphragm. Consider abdominal KUB x-ray 2 further evaluate. 3. Stable right greater than left bibasilar atelectasis and/or infiltrate.
[2018-04-30] MEDS ORDERED: SODIUM CHLORIDE 0.9% 1,000 ML IV ONE ×3 (08:44→22:28)
[2018-04-30 09:00] LABS: INR 1.8 (<1.2); Prothrombin Time 16.1 sec (9.0-12.0)
[2018-04-30] MEDS ORDERED: PANTOPRAZOLE 40 MG/10 ML VIAL IV SCH (09:00)
[2018-04-30] MEDS ORDERED: POTASSIUM BICARBONATE/CIT AC 20 MEQ TABLET.EFF NG-TUBE SCH (09:00)
[2018-04-30] MEDS ORDERED: LACTULOSE 20 GM/30 ML CUP NG-TUBE ONE ×3 (09:30→11:30)
[2018-04-30] MEDS ORDERED: NOREPINEPHRIN 4 MG-0.9% NS PMX 4 MG/250 ML ML IV ONE (09:41)
[2018-04-30] MEDS ORDERED: NOREPINEPHRINE 4 MG in DEXTROSE 5% IN WATER 250 ML IV SCH ×2 (10:00)
--- NOTE | 2018-04-30 10:18 | XR ---
EXAMINATION TYPE: XR KUB portable DATE OF EXAM: 04/30/2018 9:57 AM CLINICAL HISTORY: NG tube placement. TECHNIQUE: Single AP portable frontal supine view of the abdomen is obtained. COMPARISON: Chest x-ray from earlier today. FINDINGS: Coiled nasogastric tube is confirmed within small to moderate-sized hiatal hernia. Tip proj ects below diaphragm. Side-port is above diaphragm. There is scattered gas in nondistended small bowel and slightly prominent colonic loops on single lidia ge. IMPRESSION: As above.
--- NOTE | 2018-04-30 10:23 | XR ---
EXAMINATION TYPE: XR KUB portable DATE OF EXAM: 04/30/2018 9:58 AM CLINICAL HISTORY: Enteric tube. TECHNIQUE: Single supine KUB image of the abdomen is obtained. COMPARISON: 04/30/2018 30 7:00 AM FINDINGS: Again the enteric tube coils at the distal esophagus with its fenestrated portion at the ga stroesophageal junction within the known moderate-sized hiatal hernia. The distal tip does project in ferior to the diaphragm. However, fenestrated portion is at the level of the diaphragmatic hiatus. There is redemonstration of air-filled nondilated large and small bowel loops. Osseous structures are grossly intact. Lung bases are clear. IMPRESSION: Similar positioning of the coiled enteric tube within a moderate hiatal hernia as describ ed above.
[2018-04-30] MEDS: IPRATROPIUM-ALBUTEROL 3 ML NEB INHALATION SCH ×5 (10:56→22:53)
[2018-04-30] MEDS: SODIUM CHLORIDE 0.9% 1,000 ML IV SCH ×2 (11:07→21:32)
--- NOTE | 2018-04-30 11:14 | PCN ---
PROCEDURE NOTE OPERATIVE REPORT: Placement of a right femoral triple-lumen catheter. PREOPERATIVE DIAGNOSIS: Acute hepatic encephalopathy and hypotension. POSTOPERATIVE DIAGNOSIS: Acute hepatic encephalopathy and hypotension. ANESTHESIA USED: 4 mL of 1% lidocaine. PROCEDURE: The patient was placed in a supine position. The area of the right groin was prepared in a sterile fashion and drapes were applied. The right femoral vein was cannulated after local anesthetic given in the area of the groin, and it was to cannulate the femoral vein. Then a guidewire was placed in the femoral vein, the area was dilated with a dilator, and a triple-lumen catheter was inserted over the guidewire, and the guidewire was removed. Good flow was noted in the 3 different ports of the triple- lumen catheter, and no evidence of any immediate complications. Line was secured using 3.0 silk sutures. MMBRIANL / PRICILAN: [id number] /
--- NOTE | 2018-04-30 11:14 | PCN ---
PROCEDURE NOTE OPERATIVE REPORT: Placement of a right radial arterial line. PREOPERATIVE DIAGNOSIS: Hepatic encephalopathy, respiratory failure, hypotension. POSTOPERATIVE DIAGNOSIS: Hepatic encephalopathy, respiratory failure, hypotension. ANESTHESIA USED: None deployed. PROCEDURE: Patient was placed in a supine position, the right wrist was prepared in a sterile fashion and drapes were applied. The right radial artery was palpated, cannulated, and a guidewire was placed. A Cook catheter was inserted over the guidewire, and the guidewire was removed. Good blood flow and good waveform was noted. Line was secured using 3.0 silk sutures. No evidence of any complications. MMODL / IJN: [id number] /
[2018-04-30] MEDS: NOREPINEPHRIN 16 MG-0.9%NS PMX 16 MG/250 ML ML IV SCH (11:26)
[2018-04-30] MEDS: CHLORHEXIDINE GLUCONATE 15 ML CUP MUCOUS MEM SCH ×2 (11:26→21:25)
[2018-04-30] MEDS: BETAMETHASONE DIPROPIONATE 0.05% OINTMENT 45 GM TUBE TOPICAL SCH ×2 (11:28→21:36)
[2018-04-30] MEDS: MAGNESIUM SULFATE-D5W PMX 1 GM in DEXTROSE/WATER 1 100ML.BAG IVPB SCH ×2 (11:29→13:43)
[2018-04-30] MEDS: RIFAXIMIN 550 MG TABLET NG-TUBE SCH ×2 (11:29→21:31)
[2018-04-30 12:09] LABS: Glucose,Whole Blood 194 mg/dL (75-99)
[2018-04-30] MEDS: INSULIN ASPART 100 UNIT/ML 1 ML 10 ML VIAL SQ SCH ×2 (12:21→18:35)
--- NOTE | 2018-04-30 13:20 | P.CNPUL ---
History of Present Illness Consult date: 04/30/18 Requesting physician: Eli Stiles Reason for consult: other (Acute respiratory failure and hepatic encephalopathy) Chief complaint: Mental status change History of present illness: This is a 47-year-old white male with history of alcohol and opiate dependency, patient has been dependent and maintained on Suboxone 4 chronic alcohol abuse. Patient is known to have history of severe alcohol liver disease, cirrhosis and portal hypertension, chronic ascites and had previous paracentesis in 2017. Patient was also evaluated in the past at [facility], and workup was done for potential liver transplantation. This time the patient was admitted with acute mental status change and he was found to have significantly elevated ammonia level, admitted with the impression of hepatic encephalopathy. Initial admission was on 04/29/2018, however this morning I received a stat consultation from his admitting physician at 7:30 AM were in the rapid response team from the ICU evaluated the patient for worsening mental status, worsening encephalopathy, and the patient was unresponsive. As soon was made aware of the patient, I recommended immediate intubation of the patient by HAMMER DRIVER, transferred to the ICU, and half an hour later I evaluated the patient in the ICU were in he was noted to be relatively hypotensive given fluid boluses, placed on empiric antibiotics in the form of Zosyn, I also recommended central line and arterial line to be placed and these were done by me. His ventilator settings were adjusted accordingly, patient was kept on mechanical ventilation, he is already on lactulose, required placement on norepinephrine, and he is also on rifaximin. ABG supposedly was done prior to intubation noted to have a pO2 of 81 pCO2 of 41 pH of 7.49 on 32% FiO2, but the patient was encephalopathic , and was unable to protect his airways had no gag reflex according to the admitting physician. Review of Systems Could not obtain adequate review of system, no family members available, patient is intubated, and he has been encephalopathic. ROS unobtainable: due to endotracheal tube Past Medical History Past Medical History: GERD/Reflux, Liver Disease, Pneumonia Additional Past Medical History / Comment(s): back pain,ascities, cirrhosis, pancreatitis, pleural effusions. History of Any Multi-Drug Resistant Organisms: None Reported Past Surgical History: Adenoidectomy, Back Surgery, Hernia Repair, Tonsillectomy Additional Past Surgical History / Comment(s): OPEN HEART SURGERY A CHILD FOR A PIECE OF GLASS LODGED IN HIS HEART, large volume Paracentesis, RT INGUINAL HERNIA Past Anesthesia/Blood Transfusion Reactions: No Reported Reaction Past Psychological History: No Psychological Hx Reported Additional Psychological History / Comment(s): 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 LIVES IN HOME WITH JARVIS. 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 NO OUTSIDE SERVICES. NO HOSPITAL EQUIPMENT. HAS 3 STEPS INTO HOME- HOUSE IN ONE LEVEL. 2 INDOOR CATS. 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 Smoking Status: Former smoker Past Alcohol Use History: None Reported, Daily Additional Past Alcohol Use History / Comment(s): STARTED SMOKING IN 1996, SMOKED 1PPD QUIT 01/07/17, PAST DAILY ETOH-QUIT SEP 2016 Past Drug Use History: Marijuana, Opiates Additional Drug Use History / Comment(s): previous opiate dependance, currently uses suboxone - Past Family History Father History Unknown: Yes Additional Family Medical History / Comment(s): HEALTHY Mother Family Medical History: Diabetes Mellitus Medications and Allergies Home Medications Medication Instructions Recorded Confirmed Type Buprenorphine HCl/Naloxone HCl 1 film SL TID 11/04/16 04/29/18 History [Suboxone 8 mg-2 mg Sl Film] Thiamine [Vitamin B-1] 100 mg PO DAILY #30 tab 11/06/16 04/29/18 Rx Furosemide [Lasix] 40 mg PO DAILY #30 tab 01/15/17 04/29/18 Rx Armodafinil [Nuvigil] 250 mg PO DAILY 04/29/18 04/29/18 History Betamethasone Dipropionate 1 applic TOPICAL BID 04/29/18 04/29/18 History [Betamethasone Dipropionate 0.05%] Allergies Allergy/AdvReac Type Severity Reaction Status Date / Time No Known Allergies Allergy Verified 04/29/18 16:03 Physical Exam Vitals: Vital Signs Temp Pulse Resp BP Pulse Ox 04/30/18 12:15 97 20 93/53 99 04/30/18 12:00 98.7 F 94 20 97/65 99 04/30/18 11:45 87 20 91/58 99 04/30/18 11:30 85 20 94/61 100 04/30/18 11:29 86 04/30/18 11:18 87 04/30/18 11:15 89 20 97/59 99 04/30/18 11:00 89 24 86/56 99 04/30/18 10:45 88 20 93/55 99 04/30/18 10:30 97 22 105/54 98 04/30/18 10:15 79 22 100/54 99 04/30/18 10:00 79 24 84/45 100 04/30/18 09:45 92 20 76/46 100 04/30/18 09:30 98.6 F 94 20 87/54 100 04/30/18 09:15 97 19 80/56 98 04/30/18 09:00 110 H 31 H 87/54 100 04/30/18 08:45 101 H 27 H 88/53 98 04/29/18 21:19 97.6 F 96 18 101/66 95 04/29/18 20:05 95 18 95/60 95 04/29/18 18:47 94 18 97/53 96 04/29/18 17:23 94 18 102/60 96 04/29/18 16:49 89 18 90/57 94 L 04/29/18 16:03 98.3 F 103 H 20 102/65 92 L Intake and Output 04/29/18 04/30/18 04/30/18 22:59 06:59 14:59 Intake Total 2738.932 Output Total 250 65 Balance -250 2673.932 Intake: IV 2600 Magnesium Sulfate-D5w Pmx 100 1 gm In Dextrose/Water 1 100ml.bag @ 100 mls/hr IVPB Q1H GRISELDA Rx#: [id number] Sodium Chloride 0.9% 1, 2500 000 ml @ 120 mls/hr IV . Q8H20M GRISELDA Rx#:[id number] Intake, IV Titration 138.932 Amount Norepinephrin 16 mg-0.9% 17.188 Ns Pmx 16 mg In 250 ml @ Titrate IV .Q0M GRISELDA Rx#: [id number] Norepinephrine 4 mg In 82.501 Dextrose 5% in Water 250 ml @ Titrate IV .Q0M GRISELDA Rx#:[id number] Propofol 1,000 mg In 39.243 Empty Bag 1 bag @ Titrate IV .Q0M GRISELDA Rx#: [id number] Output: Urine 250 65 Uretheral (Iyer) 250 Other: Weight 104.326 kg 103 kg 103 kg ABP, PAP, CO, CI - Last 8 Hours Arterial Blood Pressure 87/51 Arterial Blood Pressure 105/61 Arterial Blood Pressure 105/55 Arterial Blood Pressure 96/57 Arterial Blood Pressure 100/58 Arterial Blood Pressure 85/56 Arterial Blood Pressure 97/57 Arterial Blood Pressure 110/67 Physical Exam: Revealed a 47-year-old white male, intubated, on mechanical ventilation, jaundiced, not arousable to deep painful stimuli. Head: Atraumatic, normocephalic. HEENT:[Neck is supple.] [No neck masses.] [No thyromegaly.] [No JVD.] Positive icterus, oropharynx is clear, endotracheal tube is intact. Orogastric tube is intact. Chest: [Diminished breath sounds at the bases, no crackles or rhonchi or wheezes. Cardiac Exam: [Normal S1 and S2, no S3 gallop, no murmur.] Abdomen: [Soft, nontender, mildly distended, no megaly, no rebound, no guarding , normal bowel sounds.] Strongly suspect positive ascites with fluid wave shift. Extremities: [No clubbing, trace edema, no cyanosis.] Neurological Exam: Patient is sedated, unresponsive, on mechanical ventilation. Psychiatric could not be assessed. Lymphatics: No lymphadenopathy. Results - Laboratory Findings CBC and BMP: 04/30/18 05:58 04/30/18 05:58 ABG ABG pH 7.49 (7.35-7.45) H 04/30/18 07:36 ABG pCO2 41 mmHg (35-45) 04/30/18 07:36 ABG pO2 81 mmHg (83-108) L 04/30/18 07:36 ABG O2 Saturation 96.2 % (94-97) 04/30/18 07:36 PT/INR, D-dimer PT 16.1 sec (9.0-12.0) H 04/30/18 08:41 INR 1.8 (<1.2) H 04/30/18 08:41 Abnormal lab findings: Abnormal Labs 04/29/18 04/29/18 04/29/18 16:31 16:31 16:31 RBC 3.11 L Hgb 11.4 L Hct 34.5 L MCV 110.8 H MCH 36.6 H RDW 16.1 H Plt Count 125 L Neutrophils # Lymphocytes # PT INR ABG pH ABG pO2 ABG HCO3 ABG Total CO2 Sodium 128 L Potassium Chloride 84 L Carbon Dioxide 34 H Creatinine 1.40 H Glucose 106 H POC Glucose (mg/dL) Osmolality Calcium 7.9 L Total Bilirubin 7.4 H AST 105 H ALT 84 H Alkaline Phosphatase 311 H Ammonia Total Creatine Kinase 36 L Total Protein 5.7 L Albumin 2.5 L Urine Protein Urine Bilirubin Urine Bacteria Hyaline Casts Urine Mucus Ur Random Sodium U Marijuana (THC) Screen 04/29/18 04/29/18 04/29/18 16:31 16:31 16:35 RBC Hgb Hct MCV MCH RDW Plt Count Neutrophils # Lymphocytes # PT 14.8 H INR 1.6 H ABG pH ABG pO2 ABG HCO3 ABG Total CO2 Sodium Potassium Chloride Carbon Dioxide Creatinine Glucose POC Glucose (mg/dL) 115 H Osmolality Calcium Total Bilirubin AST ALT Alkaline Phosphatase Ammonia 265 H Total Creatine Kinase Total Protein Albumin Urine Protein Urine Bilirubin Urine Bacteria Hyaline Casts Urine Mucus Ur Random Sodium U Marijuana (THC) Screen 04/29/18 04/30/18 04/30/18 18:47 05:58 05:58 RBC 2.90 L Hgb 10.7 L Hct 32.8 L MCV 112.9 H MCH 36.8 H RDW 16.6 H Plt Count 113 L Neutrophils # 8.4 H Lymphocytes # 0.5 L PT INR ABG pH ABG pO2 ABG HCO3 ABG Total CO2 Sodium 129 L Potassium 3.4 L Chloride 87 L Carbon Dioxide 31 H Creatinine 1.73 H Glucose 115 H POC Glucose (mg/dL) Osmolality Calcium 7.6 L Total Bilirubin 8.5 H AST 86 H ALT Alkaline Phosphatase 265 H Ammonia Total Creatine Kinase Total Protein 5.2 L Albumin 2.3 L Urine Protein Trace H Urine Bilirubin 2+ H Urine Bacteria Many H Hyaline Casts 339 H Urine Mucus Few H Ur Random Sodium U Marijuana (THC) Screen Detected H 04/30/18 04/30/18 04/30/18 07:36 07:36 08:41 RBC Hgb Hct MCV MCH RDW Plt Count Neutrophils # Lymphocytes # PT 16.1 H INR 1.8 H ABG pH 7.49 H ABG pO2 81 L ABG HCO3 31 H ABG Total CO2 32 H Sodium Potassium Chloride Carbon Dioxide Creatinine Glucose POC Glucose (mg/dL) Osmolality Calcium Total Bilirubin AST ALT Alkaline Phosphatase Ammonia 149 H Total Creatine Kinase Total Protein Albumin Urine Protein Urine Bilirubin Urine Bacteria Hyaline Casts Urine Mucus Ur Random Sodium U Marijuana (THC) Screen 04/30/18 04/30/18 04/30/18 08:41 11:15 11:56 RBC Hgb Hct MCV MCH RDW Plt Count Neutrophils # Lymphocytes # PT INR ABG pH ABG pO2 ABG HCO3 ABG Total CO2 Sodium Potassium Chloride Carbon Dioxide Creatinine Glucose POC Glucose (mg/dL) Osmolality 276 L Calcium Total Bilirubin AST ALT Alkaline Phosphatase Ammonia 124 H Total Creatine Kinase Total Protein Albumin Urine Protein Urine Bilirubin Urine Bacteria Hyaline Casts Urine Mucus Ur Random Sodium 7 L U Marijuana (THC) Screen 04/30/18 12:07 RBC Hgb Hct MCV MCH RDW Plt Count Neutrophils # Lymphocytes # PT INR ABG pH ABG pO2 ABG HCO3 ABG Total CO2 Sodium Potassium Chloride Carbon Dioxide Creatinine Glucose POC Glucose (mg/dL) 194 H Osmolality Calcium Total Bilirubin AST ALT Alkaline Phosphatase Ammonia Total Creatine Kinase Total Protein Albumin Urine Protein Urine Bilirubin Urine Bacteria Hyaline Casts Urine Mucus Ur Random Sodium U Marijuana (THC) Screen - Diagnostic Findings Chest x-ray: image reviewed (Chest x-ray showed endotracheal tube in proper position, right basilar atelectasis is suspected, possible infiltrate is not entirely ruled out, aspiration pneumonia is not entirely ruled out) Assessment and Plan Assessment: Impression: 1 acute hypoxic respiratory failure secondary to hepatic encephalopathy and unable to protect his airways. Hence the patient was intubated and mechanically ventilated. 2 suspect right lower lobe aspiration pneumonia 3 alcoholic liver disease and cirrhosis, alcoholic hepatitis. 4 acute coagulopathy secondary to liver disease including elevated pro time and INR, anemia, and thrombocytopenia. 5 portal hypertension secondary to alcoholic liver disease 6 chronic ascites Recommendation: Patient will be kept on mechanical ventilation, his ventilator settings will be adjusted accordingly, would be placed on GI prophylaxis and Venodyne boots, will continue lactulose and rifaximin nutritional support, may have to consider paracentesis which would be diagnostic and therapeutic. Overall prognosis remains poor and guarded, lines were placed in this patient, critical care time is 35 minutes, not including the time spent on procedures. Will follow closely in the ICU. Time with Patient: Greater than 30
[2018-04-30] MEDS ORDERED: MAGNESIUM SULFATE-D5W PMX 1 GM in DEXTROSE/WATER 1 100ML.BAG IVPB SCH (14:00)
[2018-04-30] MEDS: SODIUM CHLORIDE 0.9% 99 ML with VASOPRESSIN 20 UNIT IV SCH ×4 (14:40→21:27)
--- NOTE | 2018-04-30 15:49 | CT ---
EXAMINATION TYPE: CT abdomen pelvis wo con DATE OF EXAM: 04/30/2018 COMPARISON: 01/12/2017 HISTORY: abdominal distention CT DLP: 1267.1 mGycm Automated exposure control for dose reduction was used. TECHNIQUE: Helical acquisition of images was performed from the lung bases through the pelvis. FINDINGS: LUNG BASES: Bibasilar subsegmental atelectasis is seen. There is a partial intrathoracic stomach with the enteric tube coiled within the hiatal hernia and distal aspect oriented caudally. There is also herniation of the enteric vessels and fat into the posterior mediastinum through the diaphragmatic de fect. LIVER/GB: The liver is diffusely hypoattenuated, with significant progression from the prior, most co mmonly related to hepatic steatosis. The gallbladder is elongated measuring at least 11.8 cm in longi tudinal dimension and fitting criteria for gallbladder hydrops. The previously seen nodular hepatic c ontour is less well appreciated given the decreased attenuation and adjacent ascites. There is small to moderate volume abdominal pelvic ascites. There is also demonstration of retroareolar bilateral gy necomastia and mesenteric venous congestion all relating to the underlying known hepatic ascites. PANCREAS: Diffuse pancreatic atrophy is seen. SPLEEN: The spleen is decrease in size from the prior exam now measuring 10.6 cm in craniocaudal dime nsion. ADRENALS: Overall symmetric. KIDNEYS: Unremarkable unenhanced morphology. No nephrolithiasis or gross evidence of hydronephrosis. FREE AIR: No free air is visualized REPRODUCTIVE ORGANS: No significant abnormality is seen URINARY BLADDER: Iyer catheter is within the urinary bladder and decompresses the urinary bladder w ith surrounding foci of air. ADENOPATHY: None visualized on the limited without intravenous contrast. OSSEOUS STRUCTURES: Mild degenerative changes of the lumbosacral junction and of the lower thoracic spine are noted. BOWEL: There is some tethering of the mesentery on series 3 image 12 and 13 torso gastric body, johnson seun this may relate to fibrosis as there was previously a very large epigastric fluid collection at t his location on the exam of 01/12/2017 has resolved in the interim. Evaluation of the bowel is signific antly limited given lack of intravenous contrast and surrounding ascites. There is thickening of the ascending colon and hepatic flexure that could relate to congestive colopathy of the adjacent hepatoc ellular disease or acute colitis. Note is made of a rectal tube. Diverticula are present. Evaluation for periglottic fat stranding is nondiagnostic given the adjacent ascites. Small bowel loops appear n ondilated with central fluid. OTHER: Moderate calcific atheromatous changes are seen of the abdominal aorta and its branches. IMPRESSION: 1. HYDROPIC SIZE OF THE GALLBLADDER ALTHOUGH SIMILAR TO THE PRIOR OF 01/12/2017. CORRELATE WITH SERUM L ABORATORY VALUES TO DETERMINE THE NEED FOR ADDITIONAL DIAGNOSTIC STUDY SUCH HIDA SCAN IN EVALUATIO N FOR ACUTE CHOLECYSTITIS. 2. PROGRESSION OF HEPATOCELLULAR DISEASE WITH PERSISTENT MILD TO MODERATE ABDOMINAL PELVIC ASCITES AN D MESENTERIC CONGESTION. ADJACENT THICKENING OF THE ASCENDING COLON AND TRANSVERSE COLON MAY RELATE T O CONGESTIVE COLOPATHY OF HEPATOCELLULAR DISEASE OR ACUTE COLITIS. 3. MODERATE HIATAL HERNIA WITH THE ENTERIC TUBE COILED IN THE HIATAL HERNIA. TETHERING OF THE MESENTE RY ALONG THE GREATER CURVATURE LIKELY RELATES TO FIBROSIS A LARGE PERIGASTRIC CYST WAS SEEN IN THI S LOCATION ON THE PRIOR EXAM, NOW RESOLVED.
[2018-04-30] MEDS ORDERED: FUROSEMIDE 10 MG/ML 10 ML VIAL IV STA ×2 (16:04→22:29)
[2018-04-30 16:24] LABS: Folate, Serum 10.4 ng/mL
[2018-04-30] MEDS: PIPERACILLIN-TAZOBACTAM 3.375 GM in DEXTROSE/WATER 1 50ML.BAG IVPB SCH ×2 (16:33→23:30)
[2018-04-30 18:14] LABS: Glucose,Whole Blood 179 mg/dL (75-99)
[2018-04-30 18:21] LABS: Calcium 7.7 mg/dL (8.4-10.2)
[2018-04-30 18:25] LABS: Potassium 2.9 mmol/L (3.5-5.1)
[2018-04-30 18:49] LABS: Hemoglobin A1C 4.1 % (4.0-6.0)
[2018-04-30] MEDS: POTASSIUM BICARBONATE/CIT AC 20 MEQ TABLET.EFF NG-TUBE SCH ×3 (20:06→23:29)
[2018-04-30 20:40] LABS: Glucose,Whole Blood 162 mg/dL (75-99)
[2018-04-30] MEDS: PANTOPRAZOLE 40 MG/10 ML VIAL IV SCH (21:30)
[2018-04-30 23:40] LABS: Glucose,Whole Blood 148 mg/dL (75-99)
[2018-05-01] MEDS: INSULIN ASPART 100 UNIT/ML 1 ML 10 ML VIAL SQ SCH ×5 (00:01→23:18)
[2018-05-01] MEDS: NOREPINEPHRIN 16 MG-0.9%NS PMX 16 MG/250 ML ML IV SCH (01:42)
[2018-05-01] MEDS: IPRATROPIUM-ALBUTEROL 3 ML NEB INHALATION SCH ×6 (02:47→23:55)
[2018-05-01 04:34] LABS: Anisocytosis Slight; Basophils % (A) 0 %; Eosinophils # (A) 0.1 k/uL (0-0.7); Eosinophils % (A) 1 %; HCT 32.6 % (39.0-53.0); HGB 10.6 gm/dL (13.0-17.5); Lymphocytes # (A) 1.6 k/uL (1.0-4.8); Lymphocytes % (A) 21 %; MCH 36.8 pg (25.0-35.0); MCHC 32.5 g/dL (31.0-37.0); MCV 113.3 fL (80.0-100.0); Macrocytosis Marked; Mean Platelet Volume 9.5; Monocytes # (A) 0.6 k/uL (0-1.0); Monocytes % (A) 8 %; Neutrophils # (A) 5.3 k/uL (1.3-7.7); Neutrophils % (A) 67 %; Platelet Count 121 k/uL (150-450); RBC 2.88 m/uL (4.30-5.90); RDW 16.9 % (11.5-15.5); WBC 7.9 k/uL (3.8-10.6)
[2018-05-01 04:44] LABS: Calcium 7.5 mg/dL (8.4-10.2); Phosphorus 3.1 mg/dL (2.5-4.5); Potassium 3.2 mmol/L (3.5-5.1)
[2018-05-01 04:59] LABS: Poikilocytosis (M) Present; Target Cells Present
[2018-05-01] MEDS ORDERED: NOREPINEPHRIN 16 MG-0.9%NS PMX 16 MG/250 ML ML IV SCH (05:15)
[2018-05-01] MEDS: POTASSIUM BICARBONATE/CIT AC 20 MEQ TABLET.EFF NG-TUBE SCH ×2 (05:30→06:54)
[2018-05-01] MEDS: SODIUM CHLORIDE 0.9% 1,000 ML IV SCH ×3 (05:34→22:14)
[2018-05-01 05:36] LABS: Glucose,Whole Blood 165 mg/dL (75-99)
--- NOTE | 2018-05-01 07:13 | XR ---
EXAMINATION TYPE: XR chest 1V portable DATE OF EXAM: 05/01/2018 HISTORY: Tube placement. REFERENCE: Previous study dated 04/30/2018. FINDINGS: The patient's nasogastric tube continues to be curled within the patient's hiatal hernia. E T tubes in place, unchanged in appearance. There is left basilar airspace disease, either representing atelectasis or consolidation. Pleural spa deborah are clear. Heart size upper limits of normal. IMPRESSION: 1. LEFT BASILAR AIRSPACE DISEASE. 2. NASOGASTRIC TUBE COILED IN THE PATIENT'S HIATAL HERNIA.
[2018-05-01 08:33] LABS: ABG Base Excess 5.8 mmol/L; ABG HCO3 29 mmol/L (21-25); ABG PCO2 37 mmHg (35-45); ABG PO2 160 mmHg (83-108); ABG TCO2 30 mmol/L (19-24)
--- NOTE | 2018-05-01 09:35 | P.PN ---
Subjective Progress Note Date: 05/01/18 Principal diagnosis: altered mentation Patient is a 47-year-old male with a past medical history of alcoholic cirrhosis follows with Dr. Willard, portal hypertension, recurrent ascites, and pancreatitis who presented to the emergency department with decreased responsiveness. In the ER he underwent extensive evaluation. On arrival he was found to be tachycardic with pulse rate of 103. Initial EKG showed a prolonged QT, chest x-ray showed no acute process, and head CT was negative. Initial blood work showed thrombocytopenia, anemia, hyponatremia, acute kidney injury, and an elevated ammonia 265. He received 1 dose of rectal lactulose in the ER. He was admitted to the selective care unit. Overnight he became more obtunded. Called by GI nurse practitioner Mari regarding his altered mentation on the morning of 04/30 at approximately 7:10 AM. Patient was lethargic, agonal respirations, and difficult to arouse. Stat ABG was obtained and an A-team was called. ABG was within normal limits. Patient had an NG tube placed and had no cough or noted. He was subsequently emergently intubated by anesthesia secondary to inability to protect his airway. He was given a stat dose of lactulose down his NGT. He was transfered to the ICU and Dr. Turner was consulted for critical care management. He did have signs of aspiration and was started on prophylactic Zosyn for possible aspiration. He required levo and vaso for low BP. CT of the abdomen and pelvis showed signs of fluid overload. Patient seen in ICU and sedated, no family present, d/w nurisng no unexpected events overnight- decreasing pressor use. Objective - Vital Signs Vital signs: Vital Signs Temp 97.9 F 05/01/18 08:00 Pulse 72 05/01/18 08:00 Resp 20 05/01/18 07:30 BP 98/61 05/01/18 08:00 Pulse Ox 100 05/01/18 08:00 Intake & Output 04/30/18 05/01/18 05/01/18 18:59 06:59 18:59 Intake Total 3767.939 1805.298 120 Output Total 195 734 30 Balance 3572.939 1071.298 90 Weight 103 kg 104.2 kg Intake: IV 3440 1490 120 Magnesium Sulfate-D5w Pmx 100 1 gm In Dextrose/Water 1 100ml.bag @ 100 mls/hr IVPB Q1H [facility] Rx#: [id number] Piperacillin-Tazobactam 3 50 .375 gm In Dextrose/Water 1 50ml.bag @ 12.5 mls/hr IVPB Q8HR [facility] Rx#: [id number] Sodium Chloride 0.9% 1, 3340 1440 120 000 ml @ 120 mls/hr IV . Q8H20M [facility] Rx#:[id number] Intake, IV Titration 327.939 315.298 Amount Norepinephrin 16 mg-0.9% 196.719 147.799 Ns Pmx 16 mg In 250 ml @ Titrate IV .Q0M [facility] Rx#: [id number] Norepinephrine 4 mg In 82.501 167.499 Dextrose 5% in Water 250 ml @ Titrate IV .Q0M [facility] Rx#:[id number] Propofol 1,000 mg In 48.719 Empty Bag 1 bag @ Titrate IV .Q0M [facility] Rx#: [id number] Output: Urine 195 624 30 Stool 110 Other: Voiding Method Indwelling Catheter Indwelling Catheter # Bowel Movements 1 ABP, PAP, CO, CI - Last Documented Arterial Blood Pressure 103/49 - Exam General: ill appearing, sedated, moderate distress, appears at stated age Derm: warm, dry, multiple excoriation on b/l LE. Head: atraumatic, normocephalic, symmetric Eyes: Pupils equal round reactive to light, patient not tracking finger, no lid lesion, anicteric sclera Mouth: no lip lesion, intubated Cardiovascular: On S2 tachycardic without murmur, positive posterior tibial pulse bilateral, Lungs: Course bs b/l, no accessory muscle use, on vent Abdominal: Distended soft, no guarding, no appreciable organomegaly Ext: no gross muscle atrophy, no edema, no contractures Neuro:Turns head to appropriate side when hand squeezed, moving lower extremities independently Psych: sedated - Urine dark in Iyer cath - Labs CBC & Chem 7: 05/01/18 04:00 05/01/18 04:00 Labs: Abnormal Lab Results - Last 24 Hours (Table) 04/30/18 04/30/18 04/30/18 Range/Units 08:41 08:41 11:56 RBC (4.30-5.90) m/uL Hgb (13.0-17.5) gm/dL Hct (39.0-53.0) % MCV (80.0-100.0) fL MCH (25.0-35.0) pg RDW (11.5-15.5) % Plt Count (150-450) k/uL ABG pH (7.35-7.45) ABG pO2 (83-108) mmHg ABG HCO3 (21-25) mmol/L ABG Total CO2 (19-24) mmol/L ABG O2 Saturation (94-97) % Sodium (137-145) mmol/L Potassium (3.5-5.1) mmol/L Chloride (98-107) mmol/L Carbon Dioxide (22-30) mmol/L Creatinine (0.66-1.25) mg/dL Glucose (74-99) mg/dL POC Glucose (mg/dL) (75-99) mg/dL Osmolality 276 L (280-301) mosm/kg Calcium (8.4-10.2) mg/dL Ammonia 124 H (<30) umol/L Vitamin B12 1180.0 H (200.0-944.0) pg/mL 04/30/18 04/30/18 04/30/18 Range/Units 12:07 18:00 18:11 RBC (4.30-5.90) m/uL Hgb (13.0-17.5) gm/dL Hct (39.0-53.0) % MCV (80.0-100.0) fL MCH (25.0-35.0) pg RDW (11.5-15.5) % Plt Count (150-450) k/uL ABG pH (7.35-7.45) ABG pO2 (83-108) mmHg ABG HCO3 (21-25) mmol/L ABG Total CO2 (19-24) mmol/L ABG O2 Saturation (94-97) % Sodium 129 L (137-145) mmol/L Potassium 2.9 L* (3.5-5.1) mmol/L Chloride 92 L (98-107) mmol/L Carbon Dioxide 31 H (22-30) mmol/L Creatinine 1.87 H (0.66-1.25) mg/dL Glucose 165 H (74-99) mg/dL POC Glucose (mg/dL) 194 H 179 H (75-99) mg/dL Osmolality (280-301) mosm/kg Calcium 7.7 L (8.4-10.2) mg/dL Ammonia (<30) umol/L Vitamin B12 (200.0-944.0) pg/mL 04/30/18 04/30/18 05/01/18 Range/Units 20:17 23:39 04:00 RBC (4.30-5.90) m/uL Hgb (13.0-17.5) gm/dL Hct (39.0-53.0) % MCV (80.0-100.0) fL MCH (25.0-35.0) pg RDW (11.5-15.5) % Plt Count (150-450) k/uL ABG pH (7.35-7.45) ABG pO2 (83-108) mmHg ABG HCO3 (21-25) mmol/L ABG Total CO2 (19-24) mmol/L ABG O2 Saturation (94-97) % Sodium (137-145) mmol/L Potassium (3.5-5.1) mmol/L Chloride (98-107) mmol/L Carbon Dioxide (22-30) mmol/L Creatinine (0.66-1.25) mg/dL Glucose (74-99) mg/dL POC Glucose (mg/dL) 162 H 148 H (75-99) mg/dL Osmolality (280-301) mosm/kg Calcium (8.4-10.2) mg/dL Ammonia 97 H (<30) umol/L Vitamin B12 (200.0-944.0) pg/mL 05/01/18 05/01/18 05/01/18 Range/Units 04:00 04:00 05:35 RBC 2.88 L (4.30-5.90) m/uL Hgb 10.6 L (13.0-17.5) gm/dL Hct 32.6 L (39.0-53.0) % MCV 113.3 H (80.0-100.0) fL MCH 36.8 H (25.0-35.0) pg RDW 16.9 H (11.5-15.5) % Plt Count 121 L (150-450) k/uL ABG pH (7.35-7.45) ABG pO2 (83-108) mmHg ABG HCO3 (21-25) mmol/L ABG Total CO2 (19-24) mmol/L ABG O2 Saturation (94-97) % Sodium 132 L (137-145) mmol/L Potassium 3.2 L (3.5-5.1) mmol/L Chloride 95 L (98-107) mmol/L Carbon Dioxide (22-30) mmol/L Creatinine 1.80 H (0.66-1.25) mg/dL Glucose 155 H (74-99) mg/dL POC Glucose (mg/dL) 165 H (75-99) mg/dL Osmolality (280-301) mosm/kg Calcium 7.5 L (8.4-10.2) mg/dL Ammonia (<30) umol/L Vitamin B12 (200.0-944.0) pg/mL 05/01/18 Range/Units 08:27 RBC (4.30-5.90) m/uL Hgb (13.0-17.5) gm/dL Hct (39.0-53.0) % MCV (80.0-100.0) fL MCH (25.0-35.0) pg RDW (11.5-15.5) % Plt Count (150-450) k/uL ABG pH 7.50 H (7.35-7.45) ABG pO2 160 H (83-108) mmHg ABG HCO3 29 H (21-25) mmol/L ABG Total CO2 30 H (19-24) mmol/L ABG O2 Saturation 100.0 H (94-97) % Sodium (137-145) mmol/L Potassium (3.5-5.1) mmol/L Chloride (98-107) mmol/L Carbon Dioxide (22-30) mmol/L Creatinine (0.66-1.25) mg/dL Glucose (74-99) mg/dL POC Glucose (mg/dL) (75-99) mg/dL Osmolality (280-301) mosm/kg Calcium (8.4-10.2) mg/dL Ammonia (<30) umol/L Vitamin B12 (200.0-944.0) pg/mL Microbiology - Last 24 Hours (Table) 04/29/18 16:31 Blood Culture - Preliminary Blood No Growth after 24 hours Assessment and Plan Assessment: Metabolic encephalopathy secondary to hepatic encephalopathy -ammonia level is decreasing -Lactulose and Xifaxan - GI recs -Urinalysis appears normal -Head CT unremarkable Acute respiratory failure secondary to inability to protect airway -Signs of aspiration on intubation with secretions at the back of his throat and coughing up secretions -Prophylactic Zosyn -Follow chest x-rays -Pulmonary hygiene -Critical care recs Cirrhosis secondary to alcohol use. -Concern that he may have relapsed -GI recommendations - Rasheeda on admission was 21 no steroids Coagulopathy - likely due to liver disease - repeat INR in AM Acute kidney injury, baseline creatinine 0.9 -IV fluids -Maintain map greater than 65 -Monitor renal function and avoid additional nephrotoxic agents -Follow renal profile in a.m. -Monitor closely for signs of hepatorenal syndrome - check renal ultrasound Hyponatremia, improving -Suspect secondary to cirrhosis versus dehydration -IV fluids -repeat in AM Thrombocytopenia, improving -Likely reactive to stress on top of sequestration -Follow CBC Chronic anemia, and or near baseline -Follow CBC as outpatient -folic acid and B12 levels normal DVT prophylaxis: Heparin Discussed with: Nursing Anticipated discharge: 3-4days Antic[address] discharge place: home vs SNF A total of 30 minutes was spent on the care of this complex patient more than 50 % of the time was spent in counseling and care coordination.
[2018-05-01] MEDS: HEPARIN SODIUM,PORCINE 5,000 UNIT/ML 1 ML VIAL SQ SCH ×3 (09:37→23:14)
[2018-05-01] MEDS: PIPERACILLIN-TAZOBACTAM 3.375 GM in DEXTROSE/WATER 1 50ML.BAG IVPB SCH ×3 (09:39→23:14)
[2018-05-01] MEDS: BETAMETHASONE DIPROPIONATE 0.05% OINTMENT 45 GM TUBE TOPICAL SCH ×2 (09:39→20:08)
[2018-05-01] MEDS: CHLORHEXIDINE GLUCONATE 15 ML CUP MUCOUS MEM SCH ×2 (09:40→20:08)
[2018-05-01] MEDS: PANTOPRAZOLE 40 MG/10 ML VIAL IV SCH ×2 (09:47→20:09)
[2018-05-01] MEDS: RIFAXIMIN 550 MG TABLET NG-TUBE SCH ×2 (09:50→20:11)
[2018-05-01] MEDS: SODIUM CHLORIDE 0.9% 99 ML with VASOPRESSIN 20 UNIT IV SCH ×4 (10:37→20:50)
[2018-05-01 12:08] LABS: Glucose,Whole Blood 148 mg/dL (75-99)
--- NOTE | 2018-05-01 12:30 | PN ---
PROGRESS NOTE The patient is a 47-year-old white male with history of alcoholic cirrhosis of the liver who was admitted to hospital because of altered mental status and hepatic encephalopathy. He was transferred to the intensive care unit with altered mental status and subsequently was intubated and presently on the vent. He is arousable to verbal stimuli. He is presently receiving oral lactulose as well as Xifaxan. Ammonia this morning is down to 97. PHYSICAL EXAMINATION: He appears comfortable. No apparent distress. Still remains on the vent, not sedated. VITAL SIGNS: Stable. Blood pressure is 116/73, pulse 79. HEENT: Unremarkable Conjunctivae pink. Sclerae anicteric. Oral cavity, no lesions. NECK: No jugular venous distention or lymph node enlargement. CHEST: Clear to auscultation. HEART: Regular rate and rhythm. ABDOMEN: Slightly distended. The bowel sounds are positive. Positive ascites. EXTREMITIES: No pedal edema. SKIN: No rashes. NEURO: Could not be assessed as patient is intubated. LABS: From today, WBC 7.9, hemoglobin 10.6, platelets 121. INR 1.8. AST is 86, ALT 71, T bilirubin 8.5, alkaline phosphatase 51. IMPRESSION: 1. Hepatic encephalopathy, presently on oral lactulose and oral Xifaxan. We will try to wean the lactulose to 30 mL 3 times daily so that he has 3-4 bowel movements daily. 2. Alcoholic cirrhosis of the liver with component of acute alcoholic hepatitis. 3. Refractory ascites requiring paracentesis on outpatient basis frequently. RECOMMENDATIONS: 1. Continue with oral lactulose and Xifaxan. 2. Repeat ammonia levels in the morning. 3. Continue with PPI. 4. Patient on broad-spectrum antibiotics for possible SBP. 5. We will follow him closely during his hospital stay. Thank you for this consultation. MMODL / IJN: [id number] /
--- NOTE | 2018-05-01 14:20 | P.PN ---
Subjective Progress Note Date: 05/01/18 Principal diagnosis: Acute hypoxic respiratory failure secondary to acute hepatic encephalopathy. This is a 47-year-old white male with history of alcohol and opiate dependency, patient has been dependent and maintained on Suboxone 4 chronic alcohol abuse. Patient is known to have history of severe alcohol liver disease, cirrhosis and portal hypertension, chronic ascites and had previous paracentesis in 2017. Patient was also evaluated in the past at [facility], and workup was done for potential liver transplantation. This time the patient was admitted with acute mental status change and he was found to have significantly elevated ammonia level, admitted with the impression of hepatic encephalopathy. Initial admission was on 04/29/2018, however this morning I received a stat consultation from his admitting physician at 7:30 AM were in the rapid response team from the ICU evaluated the patient for worsening mental status, worsening encephalopathy, and the patient was unresponsive. As soon was made aware of the patient, I recommended immediate intubation of the patient by [employer] WORK[employer], transferred to the ICU, and half an hour later I evaluated the patient in the ICU were in he was noted to be relatively hypotensive given fluid boluses, placed on empiric antibiotics in the form of Zosyn, I also recommended central line and arterial line to be placed and these were done by me. His ventilator settings were adjusted accordingly, patient was kept on mechanical ventilation, he is already on lactulose, required placement on norepinephrine, and he is also on rifaximin. ABG supposedly was done prior to intubation noted to have a pO2 of 81 pCO2 of 41 pH of 7.49 on 32% FiO2, but the patient was encephalopathic , and was unable to protect his airways had no gag reflex according to the admitting physician. Reevaluated today on 05/01/2018, remains on mechanical ventilation, same ventilator settings, cut down his FiO2 to 50%, and his ABG showed a pO2 of 160 pCO2 of 37 pH of 7.50. Hence his FiO2 will be decreased down to 40%. His CBC showed hemoglobin of 10.6, WBC count of 7.9. Basic metabolic profile was reviewed potassium is a bit low at 3.2, BUN is 19 and creatinine is 1.80. Chest x-ray is suggestive of left basilar atelectasis, nasogastric tube is coiled in the patient's hiatal hernia. CT of the abdomen and pelvis showed liver disease, moderate abdominal pelvic ascites noted. And good sized hiatal hernia was also noted. Blood cultures so far remain negative. Patient remains on norepinephrine which we plan to discontinue and taper slowly and he remains on vasopressin. Blood pressure is marginal, and urine output is marginal, hence I will recommend giving the patient a dose of Lasix 40 mg IV push today. More fluids will be given to maintain an adequate blood pressure and hopefully discontinue presses if tolerated. Tube feeding will be addressed again today. Patient remains on DuoNeb updrafts, Zosyn, lactulose and rifaximin, and he is also on GI and DVT prophylaxis. is at bedside, and explained to the , his overall condition and prognosis. Objective - Vital Signs Vital signs: Vital Signs Temp 97.9 F 05/01/18 08:00 Pulse 75 05/01/18 12:00 Resp 20 05/01/18 07:30 BP 109/61 05/01/18 12:00 Pulse Ox 100 05/01/18 12:00 Intake & Output 04/30/18 05/01/18 05/01/18 18:59 06:59 18:59 Intake Total 3767.939 1805.298 700.425 Output Total 195 734 180 Balance 3572.939 1071.298 520.425 Weight 103 kg 104.2 kg Intake: IV 3440 1490 600 Magnesium Sulfate-D5w Pmx 100 1 gm In Dextrose/Water 1 100ml.bag @ 100 mls/hr IVPB Q1H [facility] Rx#: [id number] Piperacillin-Tazobactam 3 50 .375 gm In Dextrose/Water 1 50ml.bag @ 12.5 mls/hr IVPB Q8HR [facility] Rx#: [id number] Sodium Chloride 0.9% 1, 3340 1440 600 000 ml @ 120 mls/hr IV . Q8H20M [facility] Rx#:[id number] Intake, IV Titration 327.939 315.298 100.425 Amount Norepinephrin 16 mg-0.9% 196.719 147.799 100.425 Ns Pmx 16 mg In 250 ml @ Titrate IV .Q0M [facility] Rx#: [id number] Norepinephrine 4 mg In 82.501 167.499 Dextrose 5% in Water 250 ml @ Titrate IV .Q0M [facility] Rx#:[id number] Propofol 1,000 mg In 48.719 Empty Bag 1 bag @ Titrate IV .Q0M [facility] Rx#: [id number] Output: Urine 195 624 180 Stool 110 Other: Voiding Method Indwelling Catheter Indwelling Catheter # Bowel Movements 1 ABP, PAP, CO, CI - Last Documented Arterial Blood Pressure 121/59 - Exam Physical Exam: Revealed a 47-year-old white male, intubated, on mechanical ventilation, jaundiced, opens eyes to deep painful stimuli Head: Atraumatic, normocephalic. HEENT:[Neck is supple.] [No neck masses.] [No thyromegaly.] [No JVD.] Positive icterus, oropharynx is clear, endotracheal tube is intact. Orogastric tube is intact. Chest: [Diminished breath sounds at the bases, no crackles or rhonchi or wheezes. Cardiac Exam: [Normal S1 and S2, no S3 gallop, no murmur.] Abdomen: [Soft, nontender, mildly distended, no megaly, no rebound, no guarding , normal bowel sounds.] Strongly suspect positive ascites with fluid wave shift. Extremities: [No clubbing, trace edema, no cyanosis.] Neurological Exam: Patient is sedated, unresponsive, on mechanical ventilation. Psychiatric could not be assessed. Lymphatics: No lymphadenopathy. - Labs CBC & Chem 7: 05/01/18 04:00 05/01/18 12:40 Labs: Abnormal Lab Results - Last 24 Hours (Table) 04/30/18 04/30/18 04/30/18 Range/Units 08:41 18:00 18:11 RBC (4.30-5.90) m/uL Hgb (13.0-17.5) gm/dL Hct (39.0-53.0) % MCV (80.0-100.0) fL MCH (25.0-35.0) pg RDW (11.5-15.5) % Plt Count (150-450) k/uL ABG pH (7.35-7.45) ABG pO2 (83-108) mmHg ABG HCO3 (21-25) mmol/L ABG Total CO2 (19-24) mmol/L ABG O2 Saturation (94-97) % Sodium 129 L (137-145) mmol/L Potassium 2.9 L* (3.5-5.1) mmol/L Chloride 92 L (98-107) mmol/L Carbon Dioxide 31 H (22-30) mmol/L Creatinine 1.87 H (0.66-1.25) mg/dL Glucose 165 H (74-99) mg/dL POC Glucose (mg/dL) 179 H (75-99) mg/dL Calcium 7.7 L (8.4-10.2) mg/dL Ammonia (<30) umol/L Vitamin B12 1180.0 H (200.0-944.0) pg/mL 04/30/18 04/30/18 05/01/18 Range/Units 20:17 23:39 04:00 RBC (4.30-5.90) m/uL Hgb (13.0-17.5) gm/dL Hct (39.0-53.0) % MCV (80.0-100.0) fL MCH (25.0-35.0) pg RDW (11.5-15.5) % Plt Count (150-450) k/uL ABG pH (7.35-7.45) ABG pO2 (83-108) mmHg ABG HCO3 (21-25) mmol/L ABG Total CO2 (19-24) mmol/L ABG O2 Saturation (94-97) % Sodium (137-145) mmol/L Potassium (3.5-5.1) mmol/L Chloride (98-107) mmol/L Carbon Dioxide (22-30) mmol/L Creatinine (0.66-1.25) mg/dL Glucose (74-99) mg/dL POC Glucose (mg/dL) 162 H 148 H (75-99) mg/dL Calcium (8.4-10.2) mg/dL Ammonia 97 H (<30) umol/L Vitamin B12 (200.0-944.0) pg/mL 05/01/18 05/01/18 05/01/18 Range/Units 04:00 04:00 05:35 RBC 2.88 L (4.30-5.90) m/uL Hgb 10.6 L (13.0-17.5) gm/dL Hct 32.6 L (39.0-53.0) % MCV 113.3 H (80.0-100.0) fL MCH 36.8 H (25.0-35.0) pg RDW 16.9 H (11.5-15.5) % Plt Count 121 L (150-450) k/uL ABG pH (7.35-7.45) ABG pO2 (83-108) mmHg ABG HCO3 (21-25) mmol/L ABG Total CO2 (19-24) mmol/L ABG O2 Saturation (94-97) % Sodium 132 L (137-145) mmol/L Potassium 3.2 L (3.5-5.1) mmol/L Chloride 95 L (98-107) mmol/L Carbon Dioxide (22-30) mmol/L Creatinine 1.80 H (0.66-1.25) mg/dL Glucose 155 H (74-99) mg/dL POC Glucose (mg/dL) 165 H (75-99) mg/dL Calcium 7.5 L (8.4-10.2) mg/dL Ammonia (<30) umol/L Vitamin B12 (200.0-944.0) pg/mL 05/01/18 05/01/18 Range/Units 08:27 12:06 RBC (4.30-5.90) m/uL Hgb (13.0-17.5) gm/dL Hct (39.0-53.0) % MCV (80.0-100.0) fL MCH (25.0-35.0) pg RDW (11.5-15.5) % Plt Count (150-450) k/uL ABG pH 7.50 H (7.35-7.45) ABG pO2 160 H (83-108) mmHg ABG HCO3 29 H (21-25) mmol/L ABG Total CO2 30 H (19-24) mmol/L ABG O2 Saturation 100.0 H (94-97) % Sodium (137-145) mmol/L Potassium (3.5-5.1) mmol/L Chloride (98-107) mmol/L Carbon Dioxide (22-30) mmol/L Creatinine (0.66-1.25) mg/dL Glucose (74-99) mg/dL POC Glucose (mg/dL) 148 H (75-99) mg/dL Calcium (8.4-10.2) mg/dL Ammonia (<30) umol/L Vitamin B12 (200.0-944.0) pg/mL Microbiology - Last 24 Hours (Table) 04/29/18 16:31 Blood Culture - Preliminary Blood No Growth after 24 hours Assessment and Plan Assessment: Impression: 1 acute hypoxic respiratory failure secondary to hepatic encephalopathy and unable to protect his airways. Hence the patient was intubated and mechanically ventilated. 2 suspect right lower lobe aspiration pneumonia, significantly improved based on the chest x-ray today. 3 alcoholic liver disease and cirrhosis, alcoholic hepatitis. 4 acute coagulopathy secondary to liver disease including elevated pro time and INR, anemia, and thrombocytopenia. 5 portal hypertension secondary to alcoholic liver disease 6 chronic ascites, no clinical evidence of spontaneous bacterial peritonitis, but the patient will remain on antibiotics empirically. 7 acute hypovolemic shock, possible sepsis and septic shock, however this is felt to be less likely based on the presentation. Recommendation: Continue ventilatory support, nutritional support, hemodynamic support, GI and DVT prophylaxis, antibiotics empirically, address coagulopathy, continue to treat elevated ammonia level, today the level is 97. Patient remains on lactulose and rifaximin. Had a long discussion with his regarding his condition, and we'll continue to follow closely. Critical care time is 45 minutes. Time with Patient: Greater than 30
[2018-05-01] MEDS ORDERED: SODIUM CHLORIDE 0.9% 1,000 ML IV ONE (14:30)
[2018-05-01] MEDS ORDERED: Potassium Replacement Protocol 1 EACH MISC MISCELLANE PRN (16:37)
[2018-05-01] MEDS ORDERED: POTASSIUM BICARBONATE/CIT AC 20 MEQ TABLET.EFF NG-TUBE SCH ×2 (17:00→22:00)
[2018-05-01] MEDS: LACTULOSE 20 GM/30 ML CUP NG-TUBE SCH ×2 (17:57→21:31)
[2018-05-01] MEDS: PROPOFOL 1,000 MG in EMPTY BAG 1 BAG IV SCH (18:00)
[2018-05-01 18:07] LABS: Glucose,Whole Blood 134 mg/dL (75-99)
[2018-05-01] MEDS ORDERED: NOREPINEPHRINE 16 MG in DEXTROSE 5% IN WATER 250 ML IV SCH ×2 (21:23)
[2018-05-01] MEDS ORDERED: ALBUMIN HUMAN 25% 50 ML in EMPTY BAG 1 BAG IVPB ONE (22:10)
[2018-05-01] MEDS ORDERED: FUROSEMIDE 10 MG/ML 10 ML VIAL IV STA (22:12)
[2018-05-01 23:18] LABS: Glucose,Whole Blood 143 mg/dL (75-99)
[2018-05-02] MEDS: NOREPINEPHRIN 16 MG-0.9%NS PMX 16 MG/250 ML ML IV SCH (00:59)
[2018-05-02] MEDS ORDERED: POTASSIUM BICARBONATE/CIT AC 20 MEQ TABLET.EFF NG-TUBE SCH ×2 (03:06→06:00)
[2018-05-02] MEDS: IPRATROPIUM-ALBUTEROL 3 ML NEB INHALATION SCH ×6 (03:45→23:05)
[2018-05-02 04:54] LABS: INR 1.8 (<1.2); Prothrombin Time 16.3 sec (9.0-12.0)
[2018-05-02 05:01] LABS: Albumin 2.1 g/dL (3.5-5.0); Calcium 7.8 mg/dL (8.4-10.2); Magnesium 1.8 mg/dL (1.6-2.3); Phosphorus 3.1 mg/dL (2.5-4.5); Total Bilirubin 5.4 mg/dL (0.2-1.3); Total Protein 4.6 g/dL (6.3-8.2)
[2018-05-02 05:14] LABS: Anisocytosis Slight; Basophils % (A) 0 %; Eosinophils # (A) 0.1 k/uL (0-0.7); Eosinophils % (A) 1 %; HCT 29.4 % (39.0-53.0); HGB 9.6 gm/dL (13.0-17.5); Lymphocytes # (A) 0.7 k/uL (1.0-4.8); Lymphocytes % (A) 13 %; MCH 37.2 pg (25.0-35.0); MCHC 32.5 g/dL (31.0-37.0); MCV 114.5 fL (80.0-100.0); Mean Platelet Volume 10.3; Monocytes # (A) 0.4 k/uL (0-1.0); Monocytes % (A) 8 %; Neutrophils % (A) 75 %; RBC 2.57 m/uL (4.30-5.90); RDW 16.7 % (11.5-15.5); WBC 5.3 k/uL (3.8-10.6)
[2018-05-02] MEDS: SODIUM CHLORIDE 0.9% 1,000 ML IV SCH ×3 (05:20→23:25)
[2018-05-02 05:25] LABS: Glucose,Whole Blood 148 mg/dL (75-99)
[2018-05-02] MEDS: INSULIN ASPART 100 UNIT/ML 1 ML 10 ML VIAL SQ SCH ×3 (05:25→17:52)
[2018-05-02] MEDS: MAGNESIUM SULFATE-D5W PMX 1 GM in DEXTROSE/WATER 1 100ML.BAG IVPB SCH ×2 (05:56→07:09)
[2018-05-02 05:57] LABS: Macrocytosis Marked; Platelet Count 74 k/uL (150-450); Target Cells Present
--- NOTE | 2018-05-02 07:07 | XR ---
EXAMINATION TYPE: XR chest 1V portable DATE OF EXAM: 05/02/2018 HISTORY: Tube placement. REFERENCE: Previous study dated 05/01/2018. FINDINGS: The patient is NG tube is been repositioned and is now within the stomach. The patient is E T tube is unchanged in appearance. There is some left basilar atelectasis. The heart is mildly enlarged. The right lung is clear. Pleura l spaces are clear. IMPRESSION: CONTINUING LEFT BASILAR AIRSPACE DISEASE.
[2018-05-02] MEDS: PROPOFOL 1,000 MG in EMPTY BAG 1 BAG IV SCH ×2 (07:09→16:17)
[2018-05-02 07:57] LABS: ABG Base Excess 5.2 mmol/L; ABG HCO3 29 mmol/L (21-25); ABG Oxygen Saturation 99.8 % (94-97); ABG PCO2 37 mmHg (35-45); ABG PH 7.49 (7.35-7.45); ABG PO2 136 mmHg (83-108); ABG TCO2 30 mmol/L (19-24)
[2018-05-02] MEDS: PIPERACILLIN-TAZOBACTAM 3.375 GM in DEXTROSE/WATER 1 50ML.BAG IVPB SCH ×3 (08:24→23:57)
[2018-05-02] MEDS: CHLORHEXIDINE GLUCONATE 15 ML CUP MUCOUS MEM SCH ×2 (08:25→20:36)
[2018-05-02] MEDS: LACTULOSE 20 GM/30 ML CUP NG-TUBE SCH ×3 (08:25→21:02)
[2018-05-02] MEDS: BETAMETHASONE DIPROPIONATE 0.05% OINTMENT 45 GM TUBE TOPICAL SCH ×2 (08:25→21:02)
[2018-05-02] MEDS: PANTOPRAZOLE 40 MG/10 ML VIAL IV SCH ×2 (08:26→20:36)
[2018-05-02] MEDS: RIFAXIMIN 550 MG TABLET NG-TUBE SCH ×2 (08:26→20:36)
--- NOTE | 2018-05-02 08:44 | P.PN ---
Subjective Progress Note Date: 05/02/18 Principal diagnosis: altered mentation Patient is a 47-year-old male with a past medical history of alcoholic cirrhosis follows with Dr. Willard, portal hypertension, recurrent ascites, and pancreatitis who presented to the emergency department with decreased responsiveness. In the ER he underwent extensive evaluation. On arrival he was found to be tachycardic with pulse rate of 103. Initial EKG showed a prolonged QT, chest x-ray showed no acute process, and head CT was negative. Initial blood work showed thrombocytopenia, anemia, hyponatremia, acute kidney injury, and an elevated ammonia 265. He received 1 dose of rectal lactulose in the ER. He was admitted to the selective care unit. Overnight he became more obtunded. Called by GI nurse practitioner Mari regarding his altered mentation on the morning of 04/30 at approximately 7:10 AM. Patient was lethargic, agonal respirations, and difficult to arouse. Stat ABG was obtained and an A-team was called. ABG was within normal limits. Patient had an NG tube placed and had no cough or noted. He was subsequently emergently intubated by anesthesia secondary to inability to protect his airway. He was given a stat dose of lactulose down his NGT. He was transfered to the ICU and Dr. Turner was consulted for critical care management. He did have signs of aspiration and was started on prophylactic Zosyn for possible aspiration. He required levo and vaso for low BP. CT of the abdomen and pelvis showed signs of fluid overload. On the morning of 05/01 he was still requiring levo and vaso, his lactulose was decreasing and he continued to have bowel movements. Morning of 05/02 his ammonia was still in the 80s and lactulose was continued. His levo was decreasing and his vaso was still active. His urine output had decreased overnight requiring IVF and then albumin and lasix. His urine output was able to maintain at 30 cc/hr. Patient seen in ICU and sedated, no family present, d/w nurisng overnight events outlined above. Objective - Vital Signs Vital signs: Vital Signs Temp 97.5 F L 05/02/18 08:00 Pulse 84 05/02/18 08:15 Resp 20 05/02/18 07:00 BP 104/69 05/02/18 08:15 Pulse Ox 100 05/02/18 08:15 Intake & Output 05/01/18 05/02/18 05/02/18 18:59 06:59 18:59 Intake Total 2401.706 2191.940 150 Output Total 510 625 45 Balance 9691.015 2725.940 105 Weight 104.2 kg 113.4 kg Intake: IV 1200 1660 120 Albumin Human 25% 50 ml 100 In Empty Bag 1 bag @ 100 mls/hr IVPB ONCE ONE Rx#: [id number] Sodium Chloride 0.9% 1, 1200 1560 120 000 ml @ 120 mls/hr IV . Q8H20M [facility] Rx#:[id number] Intake, IV Titration 1201.706 161.940 Amount Norepinephrin 16 mg-0.9% 100.425 61.940 Ns Pmx 16 mg In 250 ml @ Titrate IV .Q0M [facility] Rx#: [id number] Piperacillin-Tazobactam 3 50 .375 gm In Dextrose/Water 1 50ml.bag @ 12.5 mls/hr IVPB Q8HR [facility] Rx#: [id number] Propofol 1,000 mg In 51.281 100 Empty Bag 1 bag @ Titrate IV .Q0M [facility] Rx#: [id number] Sodium Chloride 0.9% 1, 1000 000 ml @ 999 mls/hr IV . Q1H1M [facility] Rx#:[id number] Tube Feeding 310 30 Other 60 Output: Urine 510 625 45 Other: Voiding Method Indwelling Catheter Indwelling Catheter ABP, PAP, CO, CI - Last Documented Arterial Blood Pressure 143/81 - Exam General: ill appearing, sedated, appears at stated age Derm: warm, dry Head: atraumatic, normocephalic, symmetric Eyes: Pupils equal round reactive to light, scleral edema, no lid lesion, anicteric sclera Mouth: no lip lesion, intubated Cardiovascular: S1S2 reg without murmur, positive posterior tibial pulse bilateral, Lungs: Course bs b/l, no accessory muscle use, on vent Abdominal: Distension increasing, soft, no guarding, no appreciable organomegaly Ext: no gross muscle atrophy, no edema, no contractures Neuro: Not responsive to stimulation currently, per nursing when sedation decreased patient grimaces and moving hands, moving lower extremities independently Psych: sedated - Urine dark in [place]yer cath - Labs CBC & Chem 7: 05/02/18 04:31 05/02/18 04:31 Labs: Abnormal Lab Results - Last 24 Hours (Table) 05/01/18 05/01/18 05/01/18 Range/Units 08:27 12:06 18:06 RBC (4.30-5.90) m/uL Hgb (13.0-17.5) gm/dL Hct (39.0-53.0) % MCV (80.0-100.0) fL MCH (25.0-35.0) pg RDW (11.5-15.5) % Plt Count (150-450) k/uL Lymphocytes # (1.0-4.8) k/uL PT (9.0-12.0) sec INR (<1.2) ABG pH 7.50 H (7.35-7.45) ABG pO2 160 H (83-108) mmHg ABG HCO3 29 H (21-25) mmol/L ABG Total CO2 30 H (19-24) mmol/L ABG O2 Saturation 100.0 H (94-97) % Sodium (137-145) mmol/L Creatinine (0.66-1.25) mg/dL Glucose (74-99) mg/dL POC Glucose (mg/dL) 148 H 134 H (75-99) mg/dL Calcium (8.4-10.2) mg/dL Total Bilirubin (0.2-1.3) mg/dL Alkaline Phosphatase (38-126) U/L Ammonia (<30) umol/L Total Protein (6.3-8.2) g/dL Albumin (3.5-5.0) g/dL 05/01/18 05/01/18 05/02/18 Range/Units 18:25 23:16 04:31 RBC (4.30-5.90) m/uL Hgb (13.0-17.5) gm/dL Hct (39.0-53.0) % MCV (80.0-100.0) fL MCH (25.0-35.0) pg RDW (11.5-15.5) % Plt Count (150-450) k/uL Lymphocytes # (1.0-4.8) k/uL PT (9.0-12.0) sec INR (<1.2) ABG pH (7.35-7.45) ABG pO2 (83-108) mmHg ABG HCO3 (21-25) mmol/L ABG Total CO2 (19-24) mmol/L ABG O2 Saturation (94-97) % Sodium (137-145) mmol/L Creatinine (0.66-1.25) mg/dL Glucose (74-99) mg/dL POC Glucose (mg/dL) 143 H (75-99) mg/dL Calcium (8.4-10.2) mg/dL Total Bilirubin (0.2-1.3) mg/dL Alkaline Phosphatase (38-126) U/L Ammonia 88 H 80 H (<30) umol/L Total Protein (6.3-8.2) g/dL Albumin (3.5-5.0) g/dL 05/02/18 05/02/18 05/02/18 Range/Units 04:31 04:31 04:31 RBC 2.57 L (4.30-5.90) m/uL Hgb 9.6 L (13.0-17.5) gm/dL Hct 29.4 L (39.0-53.0) % MCV 114.5 H (80.0-100.0) fL MCH 37.2 H (25.0-35.0) pg RDW 16.7 H (11.5-15.5) % Plt Count 74 L (150-450) k/uL Lymphocytes # 0.7 L (1.0-4.8) k/uL PT 16.3 H (9.0-12.0) sec INR 1.8 H (<1.2) ABG pH (7.35-7.45) ABG pO2 (83-108) mmHg ABG HCO3 (21-25) mmol/L ABG Total CO2 (19-24) mmol/L ABG O2 Saturation (94-97) % Sodium 134 L (137-145) mmol/L Creatinine 1.40 H (0.66-1.25) mg/dL Glucose 139 H (74-99) mg/dL POC Glucose (mg/dL) (75-99) mg/dL Calcium 7.8 L (8.4-10.2) mg/dL Total Bilirubin 5.4 H (0.2-1.3) mg/dL Alkaline Phosphatase 193 H (38-126) U/L Ammonia (<30) umol/L Total Protein 4.6 L (6.3-8.2) g/dL Albumin 2.1 L (3.5-5.0) g/dL 05/02/18 05/02/18 Range/Units 05:23 07:55 RBC (4.30-5.90) m/uL Hgb (13.0-17.5) gm/dL Hct (39.0-53.0) % MCV (80.0-100.0) fL MCH (25.0-35.0) pg RDW (11.5-15.5) % Plt Count (150-450) k/uL Lymphocytes # (1.0-4.8) k/uL PT (9.0-12.0) sec INR (<1.2) ABG pH 7.49 H (7.35-7.45) ABG pO2 136 H (83-108) mmHg ABG HCO3 29 H (21-25) mmol/L ABG Total CO2 30 H (19-24) mmol/L ABG O2 Saturation 99.8 H (94-97) % Sodium (137-145) mmol/L Creatinine (0.66-1.25) mg/dL Glucose (74-99) mg/dL POC Glucose (mg/dL) 148 H (75-99) mg/dL Calcium (8.4-10.2) mg/dL Total Bilirubin (0.2-1.3) mg/dL Alkaline Phosphatase (38-126) U/L Ammonia (<30) umol/L Total Protein (6.3-8.2) g/dL Albumin (3.5-5.0) g/dL Microbiology - Last 24 Hours (Table) 05/01/18 19:45 Gram Stain - Preliminary Sputum Sputum Culture - Preliminary 04/29/18 16:31 Blood Culture - Preliminary Blood No Growth after 48 hours Assessment and Plan Assessment: Metabolic encephalopathy secondary to hepatic encephalopathy -ammonia level is decreasing -Lactulose and Xifaxan - GI recs apprecaited -Urinalysis appears normal -Head CT unremarkable Acute respiratory failure secondary to inability to protect airway -Follow chest x-rays -Pulmonary hygiene -Critical care recs Suspected RLL aspiration - empiric zosyn - follow CXR - Await sputum culture results Decompensated Cirrhosis secondary to alcohol use. - Paracentesis in AM with IR will send cell count and protein level, lasix on hold with decreased urine output - ideally on lasix and aldactone at discharge. - Concern that he may have relapsed - GI recommendations - Rasheeda on admission was 21 no steroids Coagulopathy - likely due to liver disease - repeat INR in AM Acute kidney injury, baseline creatinine 0.9 -IV fluids -Maintain map greater than 65 -Monitor renal function and avoid additional nephrotoxic agents -Follow renal profile in a.m. -Monitor closely for signs of hepatorenal syndrome -No signs of obstruction on CT abd/pelvis Hyponatremia, improving -Suspect secondary to cirrhosis versus dehydration -IV fluids -repeat in AM Thrombocytopenia -Likely reactive to stress on top of sequestration and zosyn use -Follow CBC Chronic anemia, and or near baseline -Follow CBC as outpatient -folic acid and B12 levels normal DVT prophylaxis: Heparin Discussed with: Nursing Anticipated discharge: 3-[address]: home vs SNF A total of 35 minutes was spent on the care of this complex patient more than 50 % of the time was spent in counseling and care coordination.
[2018-05-02] MEDS: HEPARIN SODIUM,PORCINE 5,000 UNIT/ML 1 ML VIAL SQ SCH ×2 (11:52→16:15)
[2018-05-02] MEDS: SODIUM CHLORIDE 0.9% 99 ML with VASOPRESSIN 20 UNIT IV SCH ×4 (11:53→20:37)
[2018-05-02 12:05] LABS: Glucose,Whole Blood 164 mg/dL (75-99)
--- NOTE | 2018-05-02 12:28 | PN ---
PROGRESS NOTE DATE OF SERVICE: May 02, 2018 Patient is a 47-year-old pleasant white male, with a history of cirrhosis secondary to alcoholism and chronic hepatitis C infection, admitted to the hospital with hepatic encephalopathy. Presently in the intensive care unit, intubated on the vent, not sedated. He is on oral lactulose as well as Xifaxan. Serum ammonia level is 85 today. He still remains on the vent. Was somewhat hypotensive on low-dose of Levophed. He is also on broad-spectrum antibiotics for aspiration pneumonia. PHYSICAL EXAMINATION: He is sedated on the vent. VITAL SIGNS: Stable. Blood pressure 117/63, pulse 82, and temperature 97.1. HEENT examination unremarkable. Conjunctivae pink. NECK: No JVD or lymph node enlargement. Sclerae anicteric. Oral cavity no lesions. Chest was clear to auscultation. HEART: Regular rate and rhythm. Abdomen is distended. There was free fluid noted. Extremities 2+ pedal edema. Skin no rashes. Neuro: Sedated on the vent. LAB: Done today WBC is 5.3, hemoglobin 9.6, platelets 74,000. INR 1.8, T-bilirubin 5.4, AST 58, ALT 56, alkaline phosphatase 193, BUN is 20, creatinine 1.4. IMPRESSION: 1. Hepatic encephalopathy and altered mental status, intubated on the vent on oral lactulose and Xifaxan. Ammonia gradually improving. 2. Ascites, secondary to underlying cirrhosis of the liver. The patient is scheduled for paracentesis by Interventional Radiology tomorrow. 3. Elevated bilirubin with minimal elevation of serum transaminases all consistent with alcoholic hepatitis. LFTs are gradually improving. 4. Coagulopathy secondary to chronic liver disease. RECOMMENDATIONS: 1. Agree with broad-spectrum antibiotics. 2. Increased the oral lactulose so that he has 3-4 bowel movements daily. 3. Continue with oral Xifaxan 550 mg twice daily. 4. The patient is scheduled for large volume paracentesis by Interventional Radiology tomorrow and fluid can be sent for cell count to rule out SBP. 5. Continue with tube feeds. Thank you for this consultation. MMODL / IJN: [id number] /
--- NOTE | 2018-05-02 12:41 | P.PN ---
Subjective Progress Note Date: 05/02/18 Principal diagnosis: Acute hypoxic respiratory failure secondary to acute hepatic encephalopathy. This is a 47-year-old white male with history of alcohol and opiate dependency, patient has been dependent and maintained on Suboxone 4 chronic alcohol abuse. Patient is known to have history of severe alcohol liver disease, cirrhosis and portal hypertension, chronic ascites and had previous paracentesis in 2017. Patient was also evaluated in the past at [facility], and workup was done for potential liver transplantation. This time the patient was admitted with acute mental status change and he was found to have significantly elevated ammonia level, admitted with the impression of hepatic encephalopathy. Initial admission was on 04/29/2018, however this morning I received a stat consultation from his admitting physician at 7:30 AM were in the rapid response team from the ICU evaluated the patient for worsening mental status, worsening encephalopathy, and the patient was unresponsive. As soon was made aware of the patient, I recommended immediate intubation of the patient by [employer], transferred to the ICU, and half an hour later I evaluated the patient in the ICU were in he was noted to be relatively hypotensive given fluid boluses, placed on empiric antibiotics in the form of Zosyn, I also recommended central line and arterial line to be placed and these were done by me. His ventilator settings were adjusted accordingly, patient was kept on mechanical ventilation, he is already on lactulose, required placement on norepinephrine, and he is also on rifaximin. ABG supposedly was done prior to intubation noted to have a pO2 of 81 pCO2 of 41 pH of 7.49 on 32% FiO2, but the patient was encephalopathic , and was unable to protect his airways had no gag reflex according to the admitting physician. Reevaluated today on 05/01/2018, remains on mechanical ventilation, same ventilator settings, cut down his FiO2 to 50%, and his ABG showed a pO2 of 160 pCO2 of 37 pH of 7.50. Hence his FiO2 will be decreased down to 40%. His CBC showed hemoglobin of 10.6, WBC count of 7.9. Basic metabolic profile was reviewed potassium is a bit low at 3.2, BUN is 19 and creatinine is 1.80. Chest x-ray is suggestive of left basilar atelectasis, nasogastric tube is coiled in the patient's hiatal hernia. CT of the abdomen and pelvis showed liver disease, moderate abdominal pelvic ascites noted. And good sized hiatal hernia was also noted. Blood cultures so far remain negative. Patient remains on norepinephrine which we plan to discontinue and taper slowly and he remains on vasopressin. Blood pressure is marginal, and urine output is marginal, hence I will recommend giving the patient a dose of Lasix 40 mg IV push today. More fluids will be given to maintain an adequate blood pressure and hopefully discontinue presses if tolerated. Tube feeding will be addressed again today. Patient remains on DuoNeb updrafts, Zosyn, lactulose and rifaximin, and he is also on GI and DVT prophylaxis. is at bedside, and explained to the , his overall condition and prognosis. Reevaluated today on 05/02/2018, patient remains on mechanical ventilations, his ventilator settings were reviewed and adjusted, presently on tidal volume of 450 FiO2 of 35%, assist control rate of 20, and his PEEP is 5. His ABG showed a pO2 of 136, pCO2 of 37 pH of 7.49. And this was on 40% FiO2. CBC showed WBC count of 5.3 hemoglobin of 9.6. INR is 1.8. Basic metabolic profile is relatively normal. Creatinine is down to 1.40., It was 1.80 yesterday. Urine output seems to be marginal, however he responded to a dose of albumin followed by Lasix last night. And presently his urine output is ranging anywhere between 30-40 mL per hour. Received multiple fluid boluses since admission. And he remains on norepinephrine at 8 mcg/m, and he is on vasopressin. 0.03 units. Continuing to taper down his norepinephrine as tolerated. Patient remains on a small dose of propofol at 10 g. He is also on IV fluids at 75 mL per hour. Tolerating tube feeding via orogastric tube. Presently on Jevity. All his labs were reviewed, and his ammonia level is coming down to 80 today, it was over 200 on admission. Remains on lactulose and rifaximin. His abdominal distention is getting a bit worse, may benefit from paracentesis by interventional radiology in a.m. Remains empirically on antibiotics in the form of Zosyn for presumptive aspiration. Strongly doubt spontaneous bacterial peritonitis at this point. But we will continue antibiotics empirically anyway as per protocol. Liver enzymes noted to be slightly elevated, and again his ammonia level is 80. Objective - Vital Signs Vital signs: Vital Signs Temp 97.5 F L 05/02/18 08:00 Pulse 75 05/02/18 11:45 Resp 20 05/02/18 07:00 BP 98/64 05/02/18 11:15 Pulse Ox 99 05/02/18 11:56 Intake & Output 05/01/18 05/02/18 05/02/18 18:59 06:59 18:59 Intake Total 2401.706 2191.940 750 Output Total 510 625 175 Balance 7166.654 4948.940 575 Weight 104.2 kg 113.4 kg 113.4 kg Intake: IV 1200 1660 600 Albumin Human 25% 50 ml 100 In Empty Bag 1 bag @ 100 mls/hr IVPB ONCE ONE Rx#: [id number] Sodium Chloride 0.9% 1, 1200 1560 600 000 ml @ 120 mls/hr IV . Q8H20M [facility] Rx#:[id number] Intake, IV Titration 1201.706 161.940 Amount Norepinephrin 16 mg-0.9% 100.425 61.940 Ns Pmx 16 mg In 250 ml @ Titrate IV .Q0M [facility] Rx#: [id number] Piperacillin-Tazobactam 3 50 .375 gm In Dextrose/Water 1 50ml.bag @ 12.5 mls/hr IVPB Q8HR [facility] Rx#: [id number] Propofol 1,000 mg In 51.281 100 Empty Bag 1 bag @ Titrate IV .Q0M [facility] Rx#: [id number] Sodium Chloride 0.9% 1, 1000 000 ml @ 999 mls/hr IV . Q1H1M [facility] Rx#:[id number] Tube Feeding 310 150 Other 60 Output: Urine 510 625 175 Other: Voiding Method Indwelling Catheter Indwelling Catheter Indwelling Catheter # Bowel Movements 1 ABP, PAP, CO, CI - Last Documented Arterial Blood Pressure 115/61 - Exam Physical Exam: Revealed a 47-year-old white male, intubated, on mechanical ventilation, jaundiced, opens eyes to deep painful stimuli, but does not follow any other instructions. Head: Atraumatic, normocephalic. HEENT:[Neck is supple.] [No neck masses.] [No thyromegaly.] [No JVD.] Positive icterus, oropharynx is clear, endotracheal tube is intact. Orogastric tube is intact. Chest: [Diminished breath sounds at the bases, no crackles or rhonchi or wheezes. Cardiac Exam: [Normal S1 and S2, no S3 gallop, no murmur.] Abdomen: [Soft, nontender, mildly distended, no megaly, no rebound, no guarding , normal bowel sounds.] Evidence of ascites is noted. Extremities: [No clubbing, trace edema, no cyanosis.] Neurological Exam: Patient is sedated, opens eyes to verbal stimulation and to painful stimulation but does not seem to follow any other instructions. Psychiatric could not be assessed. Lymphatics: No lymphadenopathy. - Labs CBC & Chem 7: 05/02/18 04:31 05/02/18 04:31 Labs: Abnormal Lab Results - Last 24 Hours (Table) 05/01/18 05/01/18 05/01/18 Range/Units 18:06 18:25 23:16 RBC (4.30-5.90) m/uL Hgb (13.0-17.5) gm/dL Hct (39.0-53.0) % MCV (80.0-100.0) fL MCH (25.0-35.0) pg RDW (11.5-15.5) % Plt Count (150-450) k/uL Lymphocytes # (1.0-4.8) k/uL PT (9.0-12.0) sec INR (<1.2) ABG pH (7.35-7.45) ABG pO2 (83-108) mmHg ABG HCO3 (21-25) mmol/L ABG Total CO2 (19-24) mmol/L ABG O2 Saturation (94-97) % Sodium (137-145) mmol/L Creatinine (0.66-1.25) mg/dL Glucose (74-99) mg/dL POC Glucose (mg/dL) 134 H 143 H (75-99) mg/dL Calcium (8.4-10.2) mg/dL Total Bilirubin (0.2-1.3) mg/dL Alkaline Phosphatase (38-126) U/L Ammonia 88 H (<30) umol/L Total Protein (6.3-8.2) g/dL Albumin (3.5-5.0) g/dL 05/02/18 05/02/18 05/02/18 Range/Units 04:31 04:31 04:31 RBC 2.57 L (4.30-5.90) m/uL Hgb 9.6 L (13.0-17.5) gm/dL Hct 29.4 L (39.0-53.0) % MCV 114.5 H (80.0-100.0) fL MCH 37.2 H (25.0-35.0) pg RDW 16.7 H (11.5-15.5) % Plt Count 74 L (150-450) k/uL Lymphocytes # 0.7 L (1.0-4.8) k/uL PT (9.0-12.0) sec INR (<1.2) ABG pH (7.35-7.45) ABG pO2 (83-108) mmHg ABG HCO3 (21-25) mmol/L ABG Total CO2 (19-24) mmol/L ABG O2 Saturation (94-97) % Sodium 134 L (137-145) mmol/L Creatinine 1.40 H (0.66-1.25) mg/dL Glucose 139 H (74-99) mg/dL POC Glucose (mg/dL) (75-99) mg/dL Calcium 7.8 L (8.4-10.2) mg/dL Total Bilirubin 5.4 H (0.2-1.3) mg/dL Alkaline Phosphatase 193 H (38-126) U/L Ammonia 80 H (<30) umol/L Total Protein 4.6 L (6.3-8.2) g/dL Albumin 2.1 L (3.5-5.0) g/dL 05/02/18 05/02/18 05/02/18 Range/Units 04:31 05:23 07:55 RBC (4.30-5.90) m/uL Hgb (13.0-17.5) gm/dL Hct (39.0-53.0) % MCV (80.0-100.0) fL MCH (25.0-35.0) pg RDW (11.5-15.5) % Plt Count (150-450) k/uL Lymphocytes # (1.0-4.8) k/uL PT 16.3 H (9.0-12.0) sec INR 1.8 H (<1.2) ABG pH 7.49 H (7.35-7.45) ABG pO2 136 H (83-108) mmHg ABG HCO3 29 H (21-25) mmol/L ABG Total CO2 30 H (19-24) mmol/L ABG O2 Saturation 99.8 H (94-97) % Sodium (137-145) mmol/L Creatinine (0.66-1.25) mg/dL Glucose (74-99) mg/dL POC Glucose (mg/dL) 148 H (75-99) mg/dL Calcium (8.4-10.2) mg/dL Total Bilirubin (0.2-1.3) mg/dL Alkaline Phosphatase (38-126) U/L Ammonia (<30) umol/L Total Protein (6.3-8.2) g/dL Albumin (3.5-5.0) g/dL 05/02/18 Range/Units 12:04 RBC (4.30-5.90) m/uL Hgb (13.0-17.5) gm/dL Hct (39.0-53.0) % MCV (80.0-100.0) fL MCH (25.0-35.0) pg RDW (11.5-15.5) % Plt Count (150-450) k/uL Lymphocytes # (1.0-4.8) k/uL PT (9.0-12.0) sec INR (<1.2) ABG pH (7.35-7.45) ABG pO2 (83-108) mmHg ABG HCO3 (21-25) mmol/L ABG Total CO2 (19-24) mmol/L ABG O2 Saturation (94-97) % Sodium (137-145) mmol/L Creatinine (0.66-1.25) mg/dL Glucose (74-99) mg/dL POC Glucose (mg/dL) 164 H (75-99) mg/dL Calcium (8.4-10.2) mg/dL Total Bilirubin (0.2-1.3) mg/dL Alkaline Phosphatase (38-126) U/L Ammonia (<30) umol/L Total Protein (6.3-8.2) g/dL Albumin (3.5-5.0) g/dL Microbiology - Last 24 Hours (Table) 07/21/18 19:45 Gram Stain - Preliminary Sputum Sputum Culture - Preliminary Gram Neg Bacilli 04/29/18 16:31 Blood Culture - Preliminary Blood No Growth after 48 hours Assessment and Plan Assessment: Impression: 1 acute hypoxic respiratory failure secondary to hepatic encephalopathy and unable to protect his airways. Hence the patient was intubated and mechanically ventilated. 2 suspect right lower lobe aspiration pneumonia, improved based on the chest x- ray today 3 alcoholic liver disease and cirrhosis, alcoholic hepatitis. 4 acute coagulopathy secondary to liver disease including elevated pro time and INR, anemia, and thrombocytopenia. 5 portal hypertension secondary to alcoholic liver disease 6 chronic ascites, no clinical evidence of spontaneous bacterial peritonitis, but the patient will remain on antibiotics empirically. 7 acute hypovolemic shock, possible sepsis and septic shock, however this is felt to be less likely based on the presentation. Recommendation: Continue ventilatory support, nutritional support, hemodynamic support, GI and DVT prophylaxis, antibiotics empirically, continue to address the elevated ammonia level, not quite ready for weaning at this point, had a long discussion with his and his daughter at bedside, patient remains full code, and the plan is to continue present measures, may potentially consider weaning and extubation in the next 24-48 hours assuming the patient's mental status improves as the ammonia comes down to normal levels. Patient remains critically ill but relatively stable, family updated on his condition. Critical care time is 40 minutes. Time with Patient: Greater than 30
[2018-05-02] MEDS ORDERED: FUROSEMIDE 10 MG/ML 4 ML VIAL IV STA (17:50)
[2018-05-02 17:52] LABS: Glucose,Whole Blood 157 mg/dL (75-99)
[2018-05-02] MEDS ORDERED: ALBUMIN HUMAN 25% 50 ML in EMPTY BAG 1 BAG IVPB ONE (18:00)
[2018-05-02] MEDS ORDERED: ALBUMIN HUMAN 25% 50 ML in EMPTY BAG 1 BAG IVPB PRN (20:46)
[2018-05-02] MEDS ORDERED: FUROSEMIDE 10 MG/ML 4 ML VIAL IV PRN (20:47)
[2018-05-03 00:03] LABS: Glucose,Whole Blood 156 mg/dL (75-99)
[2018-05-03] MEDS: INSULIN ASPART 100 UNIT/ML 1 ML 10 ML VIAL SQ SCH ×4 (00:04→18:06)
[2018-05-03] MEDS: HEPARIN SODIUM,PORCINE 5,000 UNIT/ML 1 ML VIAL SQ SCH (00:05)
[2018-05-03] MEDS: PROPOFOL 1,000 MG in EMPTY BAG 1 BAG IV SCH ×2 (01:14→12:10)
[2018-05-03] MEDS: IPRATROPIUM-ALBUTEROL 3 ML NEB INHALATION SCH ×6 (03:35→23:07)
[2018-05-03 04:21] LABS: Anisocytosis Slight; Basophils % (A) 0 %; Eosinophils # (A) 0.1 k/uL (0-0.7); Eosinophils % (A) 3 %; HCT 28.1 % (39.0-53.0); HGB 9.1 gm/dL (13.0-17.5); Lymphocytes # (A) 0.8 k/uL (1.0-4.8); Lymphocytes % (A) 19 %; MCHC 32.3 g/dL (31.0-37.0); MCV 114.6 fL (80.0-100.0); Macrocytosis Marked; Mean Platelet Volume 10.1; Monocytes # (A) 0.3 k/uL (0-1.0); Monocytes % (A) 7 %; Neutrophils # (A) 3.1 k/uL (1.3-7.7); Neutrophils % (A) 68 %; Platelet Count 58 k/uL (150-450); RBC 2.45 m/uL (4.30-5.90); RDW 16.5 % (11.5-15.5); WBC 4.5 k/uL (3.8-10.6)
[2018-05-03 04:32] LABS: Calcium 7.9 mg/dL (8.4-10.2); Phosphorus 3.1 mg/dL (2.5-4.5); Potassium 3.3 mmol/L (3.5-5.1)
[2018-05-03] MEDS: POTASSIUM BICARBONATE/CIT AC 20 MEQ TABLET.EFF NG-TUBE SCH ×2 (04:53→06:33)
[2018-05-03 05:18] LABS: Glucose,Whole Blood 165 mg/dL (75-99)
[2018-05-03 05:19] LABS: Large Platelets Present
[2018-05-03 06:47] LABS: ALT 54 U/L (21-72); AST 65 U/L (17-59); Albumin 2.1 g/dL (3.5-5.0); Alkaline Phosphatase 203 U/L (38-126); Anion Gap 6 mmol/L; Blood Urea Nitrogen 21 mg/dL (9-20); Carbon Dioxide 28 mmol/L (22-30); Chloride 102 mmol/L (98-107); Glucose 143 mg/dL (74-99); Potassium 3.3 mmol/L (3.5-5.1); Sodium 136 mmol/L (137-145); Total Bilirubin 4.3 mg/dL (0.2-1.3); Total Protein 4.8 g/dL (6.3-8.2)
[2018-05-03 07:00] LABS: INR 1.4 (<1.2); Prothrombin Time 13.5 sec (9.0-12.0)
[2018-05-03 07:23] LABS: ABG HCO3 29 mmol/L (21-25); ABG PCO2 39 mmHg (35-45); ABG PH 7.47 (7.35-7.45); ABG PO2 154 mmHg (83-108); ABG TCO2 30 mmol/L (19-24)
--- NOTE | 2018-05-03 08:06 | P.PN ---
Subjective Progress Note Date: 05/03/18 Principal diagnosis: Respiratory failure, hepatic encephalopathy Progress note dated 05/03/2018 47-year-old male who remains on the breathing machine. His settings include the volume assist control mode rate of 20, tidal volume 450, FiO2 35% to be dropped to 25%, and PEEP of 5. Arterial blood gases from this morning show a PaO2 of 154 a PaCO2 of 39 and a pH 7.47. The FiO2 will be dropped as mentioned to 25%. The patient was admitted on the and intubated on the . The patient has an ammonia level which was 80 yesterday 106 today. The lactulose to be increased. Currently is off the norepinephrine. Receiving propofol at 15 mics per kilogram per minute, vasopressin at 0.03 units per minute a saline IV at 1 20 mL an hour and Jevity at 30 with a goal of 56 mL per hour. We deftly we'll do a daily eruption of sedation today. Also see if we can wean the vasopressin. We will increase the lactulose to bring the ammonia down. I' ve also have the nurse call the family to see whether or not they would want him transferred to a liver center such as [facility]. In addition to hypoxemic respiratory failure from hepatic encephalopathy, the patient likely has right lower lobe aspiration pneumonia, severe alcohol liver disease with cirrhosis and alcoholic hepatitis, coagulopathy secondary to liver disease, portal hypertension, chronic ascites probably hypovolemic shock possible sepsis and a history of other major issues. Objective - Vital Signs Vital signs: Vital Signs Temp 97.5 F L 05/03/18 04:00 Pulse 90 05/03/18 07:38 Resp 24 05/03/18 07:00 BP 98/64 05/02/18 11:15 Pulse Ox 99 05/03/18 07:00 Intake & Output 05/02/18 05/03/18 05/03/18 18:59 06:59 18:59 Intake Total 0743.414 3307.736 Output Total 331 825 Balance 3612.577 5267.736 Weight 113.4 kg 115.8 kg Intake: IV 1320 1610 Piperacillin-Tazobactam 3 50 .375 gm In Dextrose/Water 1 50ml.bag @ 12.5 mls/hr IVPB Q8HR [facility] Rx#: [id number] Sodium Chloride 0.9% 1, 1320 1560 000 ml @ 120 mls/hr IV . Q8H20M [facility] Rx#:[id number] Intake, IV Titration 62.107 251.736 Amount Norepinephrin 16 mg-0.9% 159.298 Ns Pmx 16 mg In 250 ml @ Titrate IV .Q0M [facility] Rx#: [id number] Propofol 1,000 mg In 62.107 92.438 Empty Bag 1 bag @ Titrate IV .Q0M [facility] Rx#: [id number] Tube Feeding 210 540 Other 90 Output: Urine 331 825 Other: Voiding Method Indwelling Catheter Indwelling Catheter # Bowel Movements 1 ABP, PAP, CO, CI - Last Documented Arterial Blood Pressure 107/61 - Exam No acute distress, sedated, with an oral endotracheal tube noted. HEENT examination is grossly unremarkable. Mucous membranes are moist. Neck supple. Full range of motion. No adenopathy thyromegaly or neck vein distention. Cardiovascular examination reveals regular rhythm rate. S1-S2 normal. No S3 or S4. No discernible murmur noted. Lungs reveal mostly clear breath sounds. Scattered rhonchi are noted. No wheezes or crackles. Abdomen distended. There likely is ascites. Bowel sounds are noted. No tenderness on palpation. Extremities are intact. Mild edema noted. No cyanosis or clubbing. Skin is without rash or lesion. Neurologic examination could not be adequately assessed because the patient is heavily sedated on propofol. - Labs CBC & Chem 7: 05/03/18 04:05 05/03/18 04:05 Labs: Abnormal Lab Results - Last 24 Hours (Table) 05/02/18 05/02/18 05/02/18 Range/Units 07:55 12:04 17:50 RBC (4.30-5.90) m/uL Hgb (13.0-17.5) gm/dL Hct (39.0-53.0) % MCV (80.0-100.0) fL MCH (25.0-35.0) pg RDW (11.5-15.5) % Plt Count (150-450) k/uL Lymphocytes # (1.0-4.8) k/uL PT (9.0-12.0) sec INR (<1.2) ABG pH 7.49 H (7.35-7.45) ABG pO2 136 H (83-108) mmHg ABG HCO3 29 H (21-25) mmol/L ABG Total CO2 30 H (19-24) mmol/L ABG O2 Saturation 99.8 H (94-97) % Sodium (137-145) mmol/L Potassium (3.5-5.1) mmol/L BUN (9-20) mg/dL Glucose (74-99) mg/dL POC Glucose (mg/dL) 164 H 157 H (75-99) mg/dL Calcium (8.4-10.2) mg/dL Total Bilirubin (0.2-1.3) mg/dL AST (17-59) U/L Alkaline Phosphatase (38-126) U/L Ammonia (<30) umol/L Total Protein (6.3-8.2) g/dL Albumin (3.5-5.0) g/dL 05/03/18 05/03/18 05/03/18 Range/Units 00:01 04:05 04:05 RBC 2.45 L (4.30-5.90) m/uL Hgb 9.1 L (13.0-17.5) gm/dL Hct 28.1 L (39.0-53.0) % MCV 114.6 H (80.0-100.0) fL MCH 37.0 H (25.0-35.0) pg RDW 16.5 H (11.5-15.5) % Plt Count 58 L (150-450) k/uL Lymphocytes # 0.8 L (1.0-4.8) k/uL PT (9.0-12.0) sec INR (<1.2) ABG pH (7.35-7.45) ABG pO2 (83-108) mmHg ABG HCO3 (21-25) mmol/L ABG Total CO2 (19-24) mmol/L ABG O2 Saturation (94-97) % Sodium (137-145) mmol/L Potassium 3.3 L (3.5-5.1) mmol/L BUN (9-20) mg/dL Glucose 140 H (74-99) mg/dL POC Glucose (mg/dL) 156 H (75-99) mg/dL Calcium 7.9 L (8.4-10.2) mg/dL Total Bilirubin (0.2-1.3) mg/dL AST (17-59) U/L Alkaline Phosphatase (38-126) U/L Ammonia (<30) umol/L Total Protein (6.3-8.2) g/dL Albumin (3.5-5.0) g/dL 05/03/18 05/03/18 05/03/18 Range/Units 04:05 04:05 04:05 RBC (4.30-5.90) m/uL Hgb (13.0-17.5) gm/dL Hct (39.0-53.0) % MCV (80.0-100.0) fL MCH (25.0-35.0) pg RDW (11.5-15.5) % Plt Count (150-450) k/uL Lymphocytes # (1.0-4.8) k/uL PT 13.5 H (9.0-12.0) sec INR 1.4 H (<1.2) ABG pH (7.35-7.45) ABG pO2 (83-108) mmHg ABG HCO3 (21-25) mmol/L ABG Total CO2 (19-24) mmol/L ABG O2 Saturation (94-97) % Sodium 136 L (137-145) mmol/L Potassium 3.3 L (3.5-5.1) mmol/L BUN 21 H (9-20) mg/dL Glucose 143 H (74-99) mg/dL POC Glucose (mg/dL) (75-99) mg/dL Calcium 8.0 L (8.4-10.2) mg/dL Total Bilirubin 4.3 H (0.2-1.3) mg/dL AST 65 H (17-59) U/L Alkaline Phosphatase 203 H (38-126) U/L Ammonia 106 H (<30) umol/L Total Protein 4.8 L (6.3-8.2) g/dL Albumin 2.1 L (3.5-5.0) g/dL 05/03/18 05/03/18 Range/Units 05:13 07:20 RBC (4.30-5.90) m/uL Hgb (13.0-17.5) gm/dL Hct (39.0-53.0) % MCV (80.0-100.0) fL MCH (25.0-35.0) pg RDW (11.5-15.5) % Plt Count (150-450) k/uL Lymphocytes # (1.0-4.8) k/uL PT (9.0-12.0) sec INR (<1.2) ABG pH 7.47 H (7.35-7.45) ABG pO2 154 H (83-108) mmHg ABG HCO3 29 H (21-25) mmol/L ABG Total CO2 30 H (19-24) mmol/L ABG O2 Saturation 100.0 H (94-97) % Sodium (137-145) mmol/L Potassium (3.5-5.1) mmol/L BUN (9-20) mg/dL Glucose (74-99) mg/dL POC Glucose (mg/dL) 165 H (75-99) mg/dL Calcium (8.4-10.2) mg/dL Total Bilirubin (0.2-1.3) mg/dL AST (17-59) U/L Alkaline Phosphatase (38-126) U/L Ammonia (<30) umol/L Total Protein (6.3-8.2) g/dL Albumin (3.5-5.0) g/dL Microbiology - Last 24 Hours (Table) 04/29/18 16:31 Blood Culture - Preliminary Blood No Growth after 72 hours 05/01/18 19:45 Gram Stain - Preliminary Sputum Sputum Culture - Preliminary Gram Neg Bacilli Assessment and Plan Assessment: Assessment Acute hypoxemic respiratory failure secondary to hepatic encephalopathy. Status post intubation and mechanical ventilation. Possible right lower lobe aspiration pneumonia Alcoholic liver disease with cirrhosis and alcoholic hepatitis Coagulopathy secondary to chronic liver disease Mental status changes secondary to hyperammonemia Portal hypertension Chronic ascites Acute hypovolemic shock with possible sepsis History of gastroesophageal reflux disease History of pancreatitis History of massive ascites, status post paracentesis Plan: Plan dated 05/03/2018 The FiO2 was turned down from 35-25% given a PaO2 of 154. In addition, we'll increase the lactulose dosing because the ammonia level has increased from 80- 106. We will attempt to wean the vasopressin off. In addition, we will do a daily eruption of sedation to evaluate his mental status. Finally, we'll talk to the family about the possibility of transferring the patient to facility with a liver unit. This will likely be [facility]. Overall prognosis remains extremely guarded. White count is 4.5, hemoglobin 9.1, hematocrit 28.1 , and platelet count 58,000. PT and INR were 13.5 and 1.4 respectively. Sodium 136 potassium 3.3 chloride is 102 CO2 28 BUN and creatinine were 21 and 1.10 Sputum is showing gram-negative bacilli. No identification as yet. Medications are being reviewed. Critical care time 34 minutes Time with Patient: Greater than 30
--- NOTE | 2018-05-03 08:12 | XR ---
EXAMINATION TYPE: XR chest 1V portable DATE OF EXAM: 05/03/2018 COMPARISON: 05/02/2018 INDICATION: Tube placement TECHNIQUE: Single frontal view of the chest is obtained. Patient is rotated to the right. FINDINGS: The heart size is normal. The pulmonary vasculature is normal. Minimal subsegmental atelectasis is likely present at the left base, slightly worsened from prior ramiro dy. Developing pneumonia should be considered. The endotracheal tube remains in position with the tip above the angie. The nasogastric tube transve rses the thorax may be coiled within the hiatal hernia with tip in left upper quadrant of the abdomen . Nasogastric tube is unchanged from prior exam. IMPRESSION: 1. Mild developing infiltrate at the left base. Correlate for atelectasis or early pneumonia. 2. Lines and catheters stable in position from prior study.
[2018-05-03] MEDS: PIPERACILLIN-TAZOBACTAM 3.375 GM in DEXTROSE/WATER 1 50ML.BAG IVPB SCH (08:15)
[2018-05-03] MEDS: PANTOPRAZOLE 40 MG/10 ML VIAL IV SCH ×2 (08:46→20:59)
[2018-05-03] MEDS: LACTULOSE 20 GM/30 ML CUP NG-TUBE SCH ×4 (09:04→20:59)
[2018-05-03] MEDS: RIFAXIMIN 550 MG TABLET NG-TUBE SCH ×2 (09:07→20:58)
[2018-05-03] MEDS: CHLORHEXIDINE GLUCONATE 15 ML CUP MUCOUS MEM SCH ×2 (09:07→20:59)
[2018-05-03] MEDS: BETAMETHASONE DIPROPIONATE 0.05% OINTMENT 45 GM TUBE TOPICAL SCH ×2 (09:07→20:59)
[2018-05-03] MEDS: SODIUM CHLORIDE 0.9% 99 ML with VASOPRESSIN 20 UNIT IV SCH ×4 (09:36→23:29)
--- NOTE | 2018-05-03 09:49 | US ---
EXAMINATION TYPE: US abdomen limited DATE OF EXAM: 05/03/2018 COMPARISON: 01/13/2017 CLINICAL HISTORY: assess for fluid pocket please. Ascites abdominal quadrants scanned, moderate amount of ascites noted IMPRESSION: 1. Ascites
--- NOTE | 2018-05-03 11:35 | P.PN ---
Subjective Patient is a 47-year-old male with a past medical history of alcoholic cirrhosis follows with Dr. Willard, portal hypertension, recurrent ascites, and pancreatitis who presented to the emergency department with decreased responsiveness. In the ER he underwent extensive evaluation. On arrival he was found to be tachycardic with pulse rate of 103. Initial EKG showed a prolonged QT, chest x-ray showed no acute process, and head CT was negative. Initial blood work showed thrombocytopenia, anemia, hyponatremia, acute kidney injury, and an elevated ammonia 265. He received 1 dose of rectal lactulose in the ER. He was admitted to the selective care unit. Overnight he became more obtunded. Called by GI nurse practitioner Mari regarding his altered mentation on the morning of 04/30 at approximately 7:10 AM. Patient was lethargic, agonal respirations, and difficult to arouse. Stat ABG was obtained and an A-team was called. ABG was within normal limits. Patient had an NG tube placed and had no cough or noted. He was subsequently emergently intubated by anesthesia secondary to inability to protect his airway. He was given a stat dose of lactulose down his NGT. He was transfered to the ICU and Dr. Turner was consulted for critical care management. He did have signs of aspiration and was started on prophylactic Zosyn for possible aspiration. He required levo and vaso for low BP. CT of the abdomen and pelvis showed signs of fluid overload. On the morning of 05/01 he was still requiring levo and vaso, his lactulose was decreasing and he continued to have bowel movements. Morning of 05/02 his ammonia was still in the 80s and lactulose was continued. His levo was decreasing and his vaso was still active. His urine output had decreased overnight requiring IVF and then albumin and lasix. His urine output was able to maintain at 30 cc/hr. Patient seen in ICU and sedated, no family present, d/w nurisng overnight events outlined above. 05/03 patient remained sedated and intubated the intensive care unit. Ammonia level is not improving despite being on lactulose and rifaximin. Lactulose dose was increased today. No acute events overnight. Objective - Vital Signs Vital signs: Vital Signs Temp 96.1 F L 05/03/18 08:30 Pulse 76 05/03/18 11:11 Resp 05/03/18 09:00 BP 98/64 05/02/18 11:15 Pulse Ox 99 05/03/18 10:30 Intake & Output 05/02/18 05/03/18 05/03/18 18:59 06:59 18:59 Intake Total 5295.977 1052.736 699.45 Output Total 331 825 205 Balance 7783.136 7004.736 494.45 Weight 113.4 kg 115.8 kg 115.8 kg Intake: IV 1320 1610 270 Piperacillin-Tazobactam 3 50 50 .375 gm In Dextrose/Water 1 50ml.bag @ 12.5 mls/hr IVPB Q8HR [facility] Rx#: [id number] Sodium Chloride 0.9% 1, 1320 1560 220 000 ml @ 120 mls/hr IV . Q8H20M [facility] Rx#:[id number] Intake, IV Titration 62.107 251.736 339.45 Amount Norepinephrin 16 mg-0.9% 159.298 Ns Pmx 16 mg In 250 ml @ Titrate IV .Q0M [facility] Rx#: [id number] Propofol 1,000 mg In 62.107 92.438 99.45 Empty Bag 1 bag @ Titrate IV .Q0M [facility] Rx#: [id number] Sodium Chloride 0.9% 1, 240 000 ml @ 120 mls/hr IV . Q8H20M [facility] Rx#:[id number] Tube Feeding 210 540 90 Other 90 Output: Urine 331 825 95 Stool 110 Other: Voiding Method Indwelling Catheter Indwelling Catheter Indwelling Catheter # Bowel Movements 1 ABP, PAP, CO, CI - Last Documented Arterial Blood Pressure 98/53 - Exam General: The patient is sedated and intubated Eye: there is normal conjunctiva bilaterally. Neck: The neck is supple, there is no JVD. Cardiovascular: Normal S1-S2, no S3-S4, no murmurs. Respiratory: Lungs clear to auscultation bilaterally Gastrointestinal: Abdomen is soft, nontender Musculoskeletal: There is no pedal edema. Neurological:. Speech is normal. Skin: Skin is warm and dry - Labs CBC & Chem 7: 05/03/18 04:05 05/03/18 11:00 Labs: Abnormal Lab Results - Last 24 Hours (Table) 05/02/18 05/02/18 05/03/18 Range/Units 12:04 17:50 00:01 RBC (4.30-5.90) m/uL Hgb (13.0-17.5) gm/dL Hct (39.0-53.0) % MCV (80.0-100.0) fL MCH (25.0-35.0) pg RDW (11.5-15.5) % Plt Count (150-450) k/uL Lymphocytes # (1.0-4.8) k/uL PT (9.0-12.0) sec INR (<1.2) ABG pH (7.35-7.45) ABG pO2 (83-108) mmHg ABG HCO3 (21-25) mmol/L ABG Total CO2 (19-24) mmol/L ABG O2 Saturation (94-97) % Sodium (137-145) mmol/L Potassium (3.5-5.1) mmol/L BUN (9-20) mg/dL Glucose (74-99) mg/dL POC Glucose (mg/dL) 164 H 157 H 156 H (75-99) mg/dL Calcium (8.4-10.2) mg/dL Total Bilirubin (0.2-1.3) mg/dL AST (17-59) U/L Alkaline Phosphatase (38-126) U/L Ammonia (<30) umol/L Total Protein (6.3-8.2) g/dL Albumin (3.5-5.0) g/dL 05/03/18 05/03/18 05/03/18 Range/Units 04:05 04:05 04:05 RBC 2.45 L (4.30-5.90) m/uL Hgb 9.1 L (13.0-17.5) gm/dL Hct 28.1 L (39.0-53.0) % MCV 114.6 H (80.0-100.0) fL MCH 37.0 H (25.0-35.0) pg RDW 16.5 H (11.5-15.5) % Plt Count 58 L (150-450) k/uL Lymphocytes # 0.8 L (1.0-4.8) k/uL PT 13.5 H (9.0-12.0) sec INR 1.4 H (<1.2) ABG pH (7.35-7.45) ABG pO2 (83-108) mmHg ABG HCO3 (21-25) mmol/L ABG Total CO2 (19-24) mmol/L ABG O2 Saturation (94-97) % Sodium (137-145) mmol/L Potassium 3.3 L (3.5-5.1) mmol/L BUN (9-20) mg/dL Glucose 140 H (74-99) mg/dL POC Glucose (mg/dL) (75-99) mg/dL Calcium 7.9 L (8.4-10.2) mg/dL Total Bilirubin (0.2-1.3) mg/dL AST (17-59) U/L Alkaline Phosphatase (38-126) U/L Ammonia (<30) umol/L Total Protein (6.3-8.2) g/dL Albumin (3.5-5.0) g/dL 05/03/18 05/03/18 05/03/18 Range/Units 04:05 04:05 05:13 RBC (4.30-5.90) m/uL Hgb (13.0-17.5) gm/dL Hct (39.0-53.0) % MCV (80.0-100.0) fL MCH (25.0-35.0) pg RDW (11.5-15.5) % Plt Count (150-450) k/uL Lymphocytes # (1.0-4.8) k/uL PT (9.0-12.0) sec INR (<1.2) ABG pH (7.35-7.45) ABG pO2 (83-108) mmHg ABG HCO3 (21-25) mmol/L ABG Total CO2 (19-24) mmol/L ABG O2 Saturation (94-97) % Sodium 136 L (137-145) mmol/L Potassium 3.3 L (3.5-5.1) mmol/L BUN 21 H (9-20) mg/dL Glucose 143 H (74-99) mg/dL POC Glucose (mg/dL) 165 H (75-99) mg/dL Calcium 8.0 L (8.4-10.2) mg/dL Total Bilirubin 4.3 H (0.2-1.3) mg/dL AST 65 H (17-59) U/L Alkaline Phosphatase 203 H (38-126) U/L Ammonia 106 H (<30) umol/L Total Protein 4.8 L (6.3-8.2) g/dL Albumin 2.1 L (3.5-5.0) g/dL 05/03/18 Range/Units 07:20 RBC (4.30-5.90) m/uL Hgb (13.0-17.5) gm/dL Hct (39.0-53.0) % MCV (80.0-100.0) fL MCH (25.0-35.0) pg RDW (11.5-15.5) % Plt Count (150-450) k/uL Lymphocytes # (1.0-4.8) k/uL PT (9.0-12.0) sec INR (<1.2) ABG pH 7.47 H (7.35-7.45) ABG pO2 154 H (83-108) mmHg ABG HCO3 29 H (21-25) mmol/L ABG Total CO2 30 H (19-24) mmol/L ABG O2 Saturation 100.0 H (94-97) % Sodium (137-145) mmol/L Potassium (3.5-5.1) mmol/L BUN (9-20) mg/dL Glucose (74-99) mg/dL POC Glucose (mg/dL) (75-99) mg/dL Calcium (8.4-10.2) mg/dL Total Bilirubin (0.2-1.3) mg/dL AST (17-59) U/L Alkaline Phosphatase (38-126) U/L Ammonia (<30) umol/L Total Protein (6.3-8.2) g/dL Albumin (3.5-5.0) g/dL Microbiology - Last 24 Hours (Table) 05/01/18 19:45 Gram Stain - Final Sputum Sputum Culture - Final Klebsiella pneumoniae Escherichia coli 04/29/18 16:31 Blood Culture - Preliminary Blood No Growth after 72 hours Assessment and Plan Assessment: Metabolic encephalopathy secondary to hepatic encephalopathy -ammonia level is fluctuating -Lactulose and Xifaxan. Lactulose increased to 4 times a day - GI recs apprecaited -Urinalysis appears normal -Head CT unremarkable -Plan for paracentesis today Acute respiratory failure secondary to inability to protect airway -Follow chest x-rays -Pulmonary hygiene -Critical care recs Suspected RLL aspiration - empiric zosyn - follow CXR - Await sputum culture results Decompensated Cirrhosis secondary to alcohol use. - Paracentesis with IR will send cell count and protein level, lasix on hold with decreased urine output - ideally on lasix and aldactone at discharge. - Concern that he may have relapsed - GI recommendations Coagulopathy - likely due to liver disease - repeat INR daily Acute kidney injury, baseline creatinine 0.9 -IV fluids -Maintain map greater than 65 -Monitor renal function and avoid additional nephrotoxic agents -Follow renal profile in a.m. -Monitor closely for signs of hepatorenal syndrome -No signs of obstruction on CT abd/pelvis Hyponatremia, improving -Suspect secondary to cirrhosis versus dehydration -IV fluids -repeat in AM Thrombocytopenia -With concerns about Zosyn-induced pancytopenia/thrombocytopenia -I would switch antibiotic to IV ceftriaxone and Flagyl today -Follow CBC daily Chronic anemia, secondary to underlying liver disease -Follow CBC as outpatient -folic acid and B12 levels normal DVT prophylaxis: SCDs, no heparin secondary to thrombocytopenia Discussed with: Nursing Anticipated discharge: 3-[address]: home vs SNF
[2018-05-03 11:53] LABS: Glucose,Whole Blood 164 mg/dL (75-99)
[2018-05-03] MEDS: SODIUM CHLORIDE 0.9% 1,000 ML IV SCH ×3 (12:10→22:55)
[2018-05-03] MEDS: NOREPINEPHRIN 16 MG-0.9%NS PMX 16 MG/250 ML ML IV SCH (12:11)
--- NOTE | 2018-05-03 12:31 | US ---
Therapeutic and diagnostic paracentesis. DATE OF EXAM: 05/03/2018 CLINICAL HISTORY: Ascites The procedure was discussed with the patient. The risks, complications, benefits, and alternatives we re discussed and any questions were answered. Informed consent was obtained. The patient was placed s upine on the ultrasound table and prepped and draped in the usual sterile fashion. All elements of maximal barrier technique were utilized. Under ultrasound guidance, access into the right lower quadrant was obtained, via the paracentesis catheter system and direct ultrasound guidanc e. Approximately 4.3 liters of straw-colored fluid was removed. The patient was stable throughout the pr ocedure and remained stable upon discharge from Department of Radiology. Sample sent to pathology for analysis. IMPRESSION: Successful paracentesis under ultrasound guidance.
[2018-05-03] MEDS: POTASSIUM CHLORIDE 20 MEQ in WATER FOR INJECTION 1 100ML.BAG IVPB SCH ×2 (12:52→15:11)
[2018-05-03] MEDS: HYDROCORTISONE SUCCINATE 100 MG/2 ML VIAL IV SCH ×2 (13:48→20:58)
[2018-05-03 14:02] LABS: Color,BF Yellow
[2018-05-03 14:03] LABS: Appearance,BF Hazy; Nucleated Cells, Body Fluid 1 /uL; RBC, Body Fluid 37 /uL
[2018-05-03 17:50] LABS: Glucose,Whole Blood 157 mg/dL (75-99)
[2018-05-03 23:57] LABS: Glucose,Whole Blood 184 mg/dL (75-99)
[2018-05-04 00:05] VITALS: TEMP 97.5
[2018-05-04] MEDS: INSULIN ASPART 100 UNIT/ML 1 ML 10 ML VIAL SQ SCH ×2 (00:51→06:23)
[2018-05-04] MEDS: metroNIDAZOLE-NS PMX 500 MG in SALINE 1 100ML.BAG IVPB SCH ×2 (00:52→07:43)
[2018-05-04] MEDS: PROPOFOL 1,000 MG in EMPTY BAG 1 BAG IV SCH ×3 (00:53→10:37)
[2018-05-04] MEDS: IPRATROPIUM-ALBUTEROL 3 ML NEB INHALATION SCH ×2 (03:10→07:18)
[2018-05-04] MEDS ORDERED: SODIUM CHLORIDE 0.9% 1,000 ML IV ONE (03:55)
[2018-05-04 05:19] LABS: ABG Base Excess 2.9 mmol/L; ABG HCO3 27 mmol/L (21-25); ABG Oxygen Saturation 97.2 % (94-97); ABG PCO2 40 mmHg (35-45); ABG PH 7.44 (7.35-7.45); ABG PO2 87 mmHg (83-108); ABG TCO2 28 mmol/L (19-24)
[2018-05-04] MEDS: HYDROCORTISONE SUCCINATE 100 MG/2 ML VIAL IV SCH (05:25)
[2018-05-04 05:50] LABS: Anisocytosis Slight; Basophils % (A) 0 %; Eosinophils % (A) 0 %; HCT 28.1 % (39.0-53.0); HGB 9.1 gm/dL (13.0-17.5); Hypochromasia Slight; Lymphocytes # (A) 0.3 k/uL (1.0-4.8); Lymphocytes % (A) 6 %; MCH 37.6 pg (25.0-35.0); MCHC 32.4 g/dL (31.0-37.0); Mean Platelet Volume 10.9; Monocytes # (A) 0.3 k/uL (0-1.0); Monocytes % (A) 5 %; Neutrophils # (A) 4.7 k/uL (1.3-7.7); Neutrophils % (A) 87 %; RBC 2.42 m/uL (4.30-5.90); RDW 16.9 % (11.5-15.5); WBC 5.4 k/uL (3.8-10.6)
[2018-05-04 05:51] LABS: Macrocytosis Marked; Platelet Count 62 k/uL (150-450)
[2018-05-04 05:56] LABS: INR 1.4 (<1.2); Prothrombin Time 12.8 sec (9.0-12.0)
[2018-05-04 06:02] LABS: Glucose,Whole Blood 157 mg/dL (75-99)
[2018-05-04 06:04] LABS: Anion Gap 4 mmol/L; Blood Urea Nitrogen 19 mg/dL (9-20); Calcium 8.1 mg/dL (8.4-10.2); Carbon Dioxide 27 mmol/L (22-30); Chloride 108 mmol/L (98-107); Glucose 134 mg/dL (74-99); Magnesium 2.1 mg/dL (1.6-2.3); Phosphorus 3.3 mg/dL (2.5-4.5); Potassium 4.3 mmol/L (3.5-5.1); Sodium 139 mmol/L (137-145)
[2018-05-04] MEDS: RIFAXIMIN 550 MG TABLET NG-TUBE SCH (07:40)
[2018-05-04] MEDS: CHLORHEXIDINE GLUCONATE 15 ML CUP MUCOUS MEM SCH (07:46)
[2018-05-04] MEDS: PANTOPRAZOLE 40 MG/10 ML VIAL IV SCH (07:46)
--- NOTE | 2018-05-04 08:29 | P.PN ---
Subjective Progress Note Date: 05/04/18 Principal diagnosis: Respiratory failure, hepatic encephalopathy Progress note dated 05/03/2018 47-year-old male who remains on the breathing machine. His settings include the volume assist control mode rate of 20, tidal volume 450, FiO2 35% to be dropped to 25%, and PEEP of 5. Arterial blood gases from this morning show a PaO2 of 154 a PaCO2 of 39 and a pH 7.47. The FiO2 will be dropped as mentioned to 25%. The patient was admitted on the and intubated on the . The patient has an ammonia level which was 80 yesterday 106 today. The lactulose to be increased. Currently is off the norepinephrine. Receiving propofol at 15 mics per kilogram per minute, vasopressin at 0.03 units per minute a saline IV at 1 20 mL an hour and Jevity at 30 with a goal of 56 mL per hour. We deftly we'll do a daily eruption of sedation today. Also see if we can wean the vasopressin. We will increase the lactulose to bring the ammonia down. I' ve also have the nurse call the family to see whether or not they would want him transferred to a liver center such as [facility]. In addition to hypoxemic respiratory failure from hepatic encephalopathy, the patient likely has right lower lobe aspiration pneumonia, severe alcohol liver disease with cirrhosis and alcoholic hepatitis, coagulopathy secondary to liver disease, portal hypertension, chronic ascites probably hypovolemic shock possible sepsis and a history of other major issues. Progress note dated 05/04/2018 The patient is again seen today. Currently, the patient's on the volume assist control mode with a rate of 20 tidal volume 450 FiO2 25% and PEEP of 5. On those settings, the blood gases show a PaO2 of 87 PaCO2 of 40 and a pH of 7.44. The patient did have a paracentesis performed yesterday. 4.3 L was removed. The patient's currently on hydrocortisone at 100 mg every 8 hours. Random cortisol level was low at 7. He is currently on norepinephrine at 10 mcg/m propofol at 10 mcg/kg/m vasopressin is currently off and is receiving a saline IV at 120 mL an hour. He's been on Jevity 1.5 at 50 with a goal of 56 mL an hour. He did not do well with his daily eruption of sedation yesterday. That will be done again today. We'll also talk to the family and others about the possibility transferring him to a liver unit such as [facility]. Today we are going to transfuse a bladder pressure to see if his suffering from obstructive shock. Chest x-ray is relatively clear. Some bibasilar atelectasis infiltrates are noted. Sputum shows evidence of Klebsiella pneumoniae and E. coli. Both bacteria are sensitive to ceftriaxone, which is what he is on. White count 5.4 hemoglobin 9.1 hematocrit 28.1 and platelet count 62,000. Sodium 139 potassium 4.3 chloride 108 CO2 27 BUN 19 and creatinine 0.8. Objective - Vital Signs Vital signs: Vital Signs Temp 97.5 F L 05/04/18 04:00 Pulse 72 05/04/18 07:30 Resp 25 H 05/04/18 07:00 BP 98/60 05/04/18 07:00 Pulse Ox 97 05/04/18 07:00 Intake & Output 05/03/18 05/04/18 05/04/18 18:59 06:59 18:59 Intake Total 2212.713 3415.110 175.672 Output Total 4795 332 35 Balance -2582.287 3083.110 140.672 Weight 115.8 kg 116 kg Intake: IV 1110 2473 123 .9 pressure bag 33 3 Piperacillin-Tazobactam 3 50 .375 gm In Dextrose/Water 1 50ml.bag @ 12.5 mls/hr IVPB Q8HR [facility] Rx#: [id number] Sodium Chloride 0.9% 1, 1060 1440 120 000 ml @ 120 mls/hr IV . Q8H20M [facility] Rx#:[id number] Sodium Chloride 0.9% 1, 1000 000 ml @ 999 mls/hr IV . Q1H1M [facility] Rx#:[id number] Intake, IV Titration 672.713 262.110 2.672 Amount Norepinephrin 16 mg-0.9% 74.614 104.693 2.672 Ns Pmx 16 mg In 250 ml @ Titrate IV .Q0M [facility] Rx#: [id number] Potassium Chloride 20 meq 200 In Water For Injection 1 100ml.bag @ 50 mls/hr IVPB Q2H [facility] Rx#: [id number] Propofol 1,000 mg In 158.099 57.417 Empty Bag 1 bag @ Titrate IV .Q0M [facility] Rx#: [id number] Sodium Chloride 0.9% 1, 240 000 ml @ 120 mls/hr IV . Q8H20M [facility] Rx#:[id number] metroNIDAZOLE-NS PMX 500 100 mg In Saline 1 100ml.bag @ 100 mls/hr IVPB Q8HR [facility] Rx#:[id number] Tube Feeding 370 590 50 Other 60 90 Output: Urine 385 332 35 Stool 110 Other 4300 Other: Voiding Method Indwelling Catheter Indwelling Catheter # Bowel Movements 1 1 ABP, PAP, CO, CI - Last Documented Arterial Blood Pressure 104/53 - Exam No acute distress, sedated, with an oral endotracheal tube noted. HEENT examination is grossly unremarkable. Mucous membranes are moist. Neck supple. Full range of motion. No adenopathy thyromegaly or neck vein distention. Cardiovascular examination reveals regular rhythm rate. S1-S2 normal. No S3 or S4. No discernible murmur noted. Lungs reveal mostly clear breath sounds. Scattered rhonchi are noted. No wheezes or crackles. Abdomen distended. There likely is ascites. Bowel sounds are noted. No tenderness on palpation. Extremities are intact. Mild edema noted. No cyanosis or clubbing. Skin is without rash or lesion. Neurologic examination could not be adequately assessed because the patient is heavily sedated on propofol. - Labs CBC & Chem 7: 05/04/18 05:40 05/04/18 05:40 Labs: Abnormal Lab Results - Last 24 Hours (Table) 05/03/18 05/03/18 05/03/18 Range/Units 11:51 17:48 23:56 RBC (4.30-5.90) m/uL Hgb (13.0-17.5) gm/dL Hct (39.0-53.0) % MCV (80.0-100.0) fL MCH (25.0-35.0) pg RDW (11.5-15.5) % Plt Count (150-450) k/uL Lymphocytes # (1.0-4.8) k/uL PT (9.0-12.0) sec INR (<1.2) ABG HCO3 (21-25) mmol/L ABG Total CO2 (19-24) mmol/L ABG O2 Saturation (94-97) % Chloride (98-107) mmol/L Glucose (74-99) mg/dL POC Glucose (mg/dL) 164 H 157 H 184 H (75-99) mg/dL Calcium (8.4-10.2) mg/dL Ammonia (<30) umol/L 05/04/18 05/04/18 05/04/18 Range/Units 05:15 05:40 05:40 RBC 2.42 L (4.30-5.90) m/uL Hgb 9.1 L (13.0-17.5) gm/dL Hct 28.1 L (39.0-53.0) % MCV 116.0 H (80.0-100.0) fL MCH 37.6 H (25.0-35.0) pg RDW 16.9 H (11.5-15.5) % Plt Count 62 L (150-450) k/uL Lymphocytes # 0.3 L (1.0-4.8) k/uL PT (9.0-12.0) sec INR (<1.2) ABG HCO3 27 H (21-25) mmol/L ABG Total CO2 28 H (19-24) mmol/L ABG O2 Saturation 97.2 H (94-97) % Chloride 108 H (98-107) mmol/L Glucose 134 H (74-99) mg/dL POC Glucose (mg/dL) (75-99) mg/dL Calcium 8.1 L (8.4-10.2) mg/dL Ammonia (<30) umol/L 05/04/18 05/04/18 05/04/18 Range/Units 05:40 05:40 06:01 RBC (4.30-5.90) m/uL Hgb (13.0-17.5) gm/dL Hct (39.0-53.0) % MCV (80.0-100.0) fL MCH (25.0-35.0) pg RDW (11.5-15.5) % Plt Count (150-450) k/uL Lymphocytes # (1.0-4.8) k/uL PT 12.8 H (9.0-12.0) sec INR 1.4 H (<1.2) ABG HCO3 (21-25) mmol/L ABG Total CO2 (19-24) mmol/L ABG O2 Saturation (94-97) % Chloride (98-107) mmol/L Glucose (74-99) mg/dL POC Glucose (mg/dL) 157 H (75-99) mg/dL Calcium (8.4-10.2) mg/dL Ammonia 49 H (<30) umol/L Microbiology - Last 24 Hours (Table) 05/03/18 11:50 Gram Stain - Preliminary Paracentesis Fluid Body Fluid Culture - Preliminary 04/29/18 16:31 Blood Culture - Preliminary Blood No Growth after 96 hours 05/03/18 11:50 Anaerobic Culture - Preliminary Paracentesis Fluid 05/01/18 19:45 Gram Stain - Final Sputum Sputum Culture - Final Klebsiella pneumoniae Escherichia coli Assessment and Plan Assessment: Assessment Acute hypoxemic respiratory failure secondary to hepatic encephalopathy. Status post intubation and mechanical ventilation. Possible right lower lobe aspiration pneumonia, secondary to Klebsiella and Escherichia coli. Alcoholic liver disease with cirrhosis and alcoholic hepatitis Coagulopathy secondary to chronic liver disease Mental status changes secondary to hyperammonemia Portal hypertension Chronic ascites Acute hypovolemic shock with possible sepsis History of gastroesophageal reflux disease History of pancreatitis History of massive ascites, status post paracentesis, rule out obstructive shock Possible adrenal insufficiency Plan: Plan dated 05/03/2018 The FiO2 was turned down from 35-25% given a PaO2 of 154. In addition, we'll increase the lactulose dosing because the ammonia level has increased from 80- 106. We will attempt to wean the vasopressin off. In addition, we will do a daily eruption of sedation to evaluate his mental status. Finally, we'll talk to the family about the possibility of transferring the patient to facility with a liver unit. This will likely be [facility]. Overall prognosis remains extremely guarded. White count is 4.5, hemoglobin 9.1, hematocrit 28.1 , and platelet count 58,000. PT and INR were 13.5 and 1.4 respectively. Sodium 136 potassium 3.3 chloride is 102 CO2 28 BUN and creatinine were 21 and 1.10 Sputum is showing gram-negative bacilli. No identification as yet. Medications are being reviewed. Critical care time 34 minutes Plan dated 05/04/2018 The patient's overall prognosis remains very poor. Arterial blood gases are reasonable. The patient will have a daily interuption of sedation. In addition , we will transfuse a bladder pressure to see whether or not he is suffering from an abdominal compartment syndrome. The patient remains on norepinephrine at 10 mcg/m. The patient also remains on propofol. The patient is being nourished. He is being treated for what appears to be a aspiration pneumonia secondary to Klebsiella pneumoniae and Escherichia coli. Additional recommendations and suggestions are forthcoming. Prognosis is poor. Critical care time 36 minute Time with Patient: Greater than 30
[2018-05-04] MEDS ORDERED: cefTRIAXone IN SWFI 1,000 MG/10 ML SYRINGE IVP SCH (09:00)
[2018-05-04] MEDS: LACTULOSE 20 GM/30 ML CUP NG-TUBE SCH (09:05)
[2018-05-04] MEDS: BETAMETHASONE DIPROPIONATE 0.05% OINTMENT 45 GM TUBE TOPICAL SCH (09:39)
[2018-05-04 10:00] VITALS: BMI 30.3
[2018-05-04 10:23] VITALS: BP 109/65
--- NOTE | 2018-05-04 11:38 | XR ---
EXAMINATION TYPE: XR chest 1V portable DATE OF EXAM: 05/04/2018 COMPARISON: NONE HISTORY: SOB, Follow Up FINDINGS: Indwelling tubes and catheters are unchanged. Mild strandy atelectasis at the lung bases. Stable appearance of the cardio-mediastinal structures at this time. Pleural effusion unchanged. IMPRESSION: 1. Stable portable chest. Clinical correlation and follow up until resolution is recommended.
[2018-05-04 11:42] VITALS: PULSE 66; RESP 15
--- NOTE | 2018-05-04 12:15 | P.DS ---
Providers Date of admission: 04/29/18 18:31 Expected date of discharge: 05/04/18 Attending physician: Kevin Lawrence MD Consults: 04/29/18 18:41 Consult Physician Routine Consulting Provider: David Boo Consult Reason/Comments: cirrohsis Do you want consulting provider notified?: Yes 04/30/18 07:54 Consult Physician Routine Consulting Provider: Kenan Rajan Consult Reason/Comments: intubation and ICU management Do you want consulting provider notified?: Already Contacted Primary care physician: Alexander Randhawa [facility] Course: This is a 47-year-old male with past medical history significant for alcoholic liver cirrhosis and put his substance abuse who presented to the hospital with worsening confusion and altered mental status. Patient was found to be in hepatic encephalopathy with ammonia level on presentation up to 265. Patient was admitted to the hospital and was intubated for airway protection sewn after. He remained in the intensive care unit. He had a complex hospital course detailed in his electronic chart. He was found to have evidence of sepsis with suspected aspiration pneumonia requiring aggressive IV fluid hydration and vasopressors. He was started on antibiotic with Zosyn and subsequently had evidence of progressive pancytopenia so antibiotic was switched to ceftriaxone and Flagyl. Patient remained sedated and intubated on minimal ventilator settings. He underwent paracentesis with approximately 4 L of fluid removed and no evidence of SBP. He was seen and evaluated by multiple specialists including gastroenterology and intensive care. His total bilirubin was trending down gradually from 8.5 on presentation to 4.5. His overall condition remained guarded. Case was discussed with the cna per diem as well as patient's family and his . Patient is well-known to the hepatology team at [facility] and was being evaluated for possible liver transplant. Decision was made to transfer patient to [facility] for further evaluation and escalation of care. Patient was accepted by the medical ICU fellow. He would be transferred today. Please refer to the electronic chart for further details about this hospitalization. Below is a list of his medical problems addressed during this hospitalization. Metabolic encephalopathy secondary to hepatic encephalopathy -ammonia level is fluctuating -Lactulose and Xifaxan. Lactulose increased to 4 times a day - GI recs apprecaited -Urinalysis appears normal -Head CT unremarkable -No evidence of SBP Acute respiratory failure secondary to inability to protect airway -Follow chest x-rays -Pulmonary hygiene -Critical care recs -Mechanical ventilator on minimal settings Suspected RLL aspiration - antibiotic switched to ceftriaxone and Flagyl - follow CXR - Await sputum culture results Decompensated Cirrhosis secondary to alcohol use. - lasix on hold with decreased urine output - ideally on lasix and aldactone at discharge. - Concern that he may have relapsed - GI recommendations Coagulopathy - likely due to liver disease - repeat INR daily Acute kidney injury, baseline creatinine 0.9 -IV fluids -Maintain map greater than 65 -Monitor renal function and avoid additional nephrotoxic agents -Follow renal profile in a.m. -Monitor closely for signs of hepatorenal syndrome -No signs of obstruction on CT abd/pelvis Hyponatremia, improving -Suspect secondary to cirrhosis versus dehydration -IV fluids -repeat in AM Thrombocytopenia -With concerns about Zosyn-induced pancytopenia/thrombocytopenia -I would switch antibiotic to IV ceftriaxone and Flagyl today -Follow CBC daily Chronic anemia, secondary to underlying liver disease -Follow CBC as outpatient -folic acid and B12 levels normal DVT prophylaxis: SCDs, no heparin secondary to thrombocytopenia Disposition: Transferred to [facility] Patient Condition at Discharge: Poor Plan - Discharge Summary Discharge Rx Participant: Yes New Discharge Prescriptions: No Action Buprenorphine HCl/Naloxone HCl [Suboxone 8 mg-2 mg Sl Film] 1 film SL TID Thiamine [Vitamin B-1] 100 mg PO DAILY #30 tab Furosemide [Lasix] 40 mg PO DAILY #30 tab Betamethasone Dipropionate [Betamethasone Dipropionate 0.05%] 1 applic TOPICAL BID Armodafinil [Nuvigil] 250 mg PO DAILY Discharge Medication List Buprenorphine HCl/Naloxone HCl [Suboxone 8 mg-2 mg Sl Film] 1 film SL TID [History] Thiamine [Vitamin B-1] 100 mg PO DAILY #30 tab 11/06/16 [Rx] Furosemide [Lasix] 40 mg PO DAILY #30 tab 01/15/17 [Rx] Armodafinil [Nuvigil] 250 mg PO DAILY 04/29/18 [History] Betamethasone Dipropionate [Betamethasone Dipropionate 0.05%] 1 applic TOPICAL BID 04/29/18 [History] Follow up Appointment(s)/Referral(s): Alexander Randhawa MD [Primary Care Provider] - 1-2 days Discharge Disposition: OTHER INSTITUTION NOT DEFINED
== END 2018-05-04 12:02 | disposition short-term general hospital (02) | DRG 432 ==
LOC: EC 16:02 → 6SEL 18:31 → 6ICU 04-30 08:16
PROVIDERS: ADMIT Internal Medicine; ATTEND Internal Medicine
PROC: 0D9670Z Drainage of Stomach with Drainage Device, Via Natural or Artificial Opening (ICD-10-PCS; principal; 2018-04-30)
PROC: 0BH17EZ Insertion of Endotracheal Airway into Trachea, Via Natural or Artificial Opening (ICD-10-PCS; 2018-04-30)
PROC: 5A1955Z Respiratory Ventilation, Greater than 96 Consecutive Hours (ICD-10-PCS; 2018-04-30)
PROC: 06HM33Z Insertion of Infusion Device into Right Femoral Vein, Percutaneous Approach (ICD-10-PCS; 2018-04-30)
PROC: 03HY32Z Insertion of Monitoring Device into Upper Artery, Percutaneous Approach (ICD-10-PCS; 2018-04-30)
PROC: 4A133B1 Monitoring of Arterial Pressure, Peripheral, Percutaneous Approach (ICD-10-PCS; 2018-04-30)
PROC: 4A133J1 Monitoring of Arterial Pulse, Peripheral, Percutaneous Approach (ICD-10-PCS; 2018-04-30)
PROC: 3E0G76Z Introduction of Nutritional Substance into Upper GI, Via Natural or Artificial Opening (ICD-10-PCS; 2018-05-01)
PROC: 0W9G3ZZ Drainage of Peritoneal Cavity, Percutaneous Approach (ICD-10-PCS; 2018-05-03)
DX: K70.31 Alcoholic cirrhosis of liver with ascites (principal); K72.00 Acute and subacute hepatic failure without coma; J96.01 Acute respiratory failure with hypoxia; J96.02 Acute respiratory failure with hypercapnia; J69.0 Pneumonitis due to inhalation of food and vomit; G93.41 Metabolic encephalopathy; R57.1 Hypovolemic shock; J15.5 Pneumonia due to Escherichia coli; J15.0 Pneumonia due to Klebsiella pneumoniae; A41.9 Sepsis, unspecified organism; R65.21 Severe sepsis with septic shock; N17.9 Acute kidney failure, unspecified; K76.6 Portal hypertension; F11.20 Opioid dependence, uncomplicated; E87.1 Hypo-osmolality and hyponatremia; E87.2 Acidosis; J98.11 Atelectasis; D68.4 Acquired coagulation factor deficiency; Z94.4 Liver transplant status; D61.818 Other pancytopenia; G62.9 Polyneuropathy, unspecified; I45.81 Long QT syndrome; K70.11 Alcoholic hepatitis with ascites; F10.20 Alcohol dependence, uncomplicated; B18.2 Chronic viral hepatitis C; K21.9 Gastro-esophageal reflux disease without esophagitis; K44.9 Diaphragmatic hernia without obstruction or gangrene; R29.6 Repeated falls; M54.9 Dorsalgia, unspecified; Y90.0 Blood alcohol level of less than 20 mg/100 ml; Z79.899 Other long term (current) drug therapy; Z87.891 Personal history of nicotine dependence; Z87.19 Personal history of other diseases of the digestive system; Z87.01 Personal history of pneumonia (recurrent); Z83.3 Family history of diabetes mellitus
CPT/HCPCS: 36415; 36600; 49083; 51702; 70450; 71045; 71046; 74018; 74176; 76705; 80048; 80053; 80306; 80320; 81001; 82140; 82533; 82550; 82553; 82607; 82746; 82805; 83036; 83735; 83930; 83935; 84100; 84132; 84157; 84300; 84484; 85025; 85610; 85730; 87040; 87070; 87075; 87077; 87186; 87205; 89050; 93005; 94002; 94003; 94640; 96361; 96365; 96366; 99285

== ENCOUNTER 2018-05-20 08:15 | Day surgery (SDC) | payer BC ==
[2018-05-20 09:11] VITALS: RESP 20; TEMP 98.2
[2018-05-20 09:19] LABS: Basophils % (A) 0 %; Eosinophils # (A) 0.2 k/uL (0-0.7); Eosinophils % (A) 3 %; HCT 34.8 % (39.0-53.0); Hypochromasia Moderate; Lymphocytes # (A) 0.9 k/uL (1.0-4.8); Lymphocytes % (A) 16 %; MCH 35.8 pg (25.0-35.0); MCHC 31.5 g/dL (31.0-37.0); MCV 113.7 fL (80.0-100.0); Macrocytosis Marked; Mean Platelet Volume 8.4; Monocytes # (A) 0.5 k/uL (0-1.0); Monocytes % (A) 8 %; Neutrophils # (A) 4.2 k/uL (1.3-7.7); Neutrophils % (A) 71 %; RBC 3.06 m/uL (4.30-5.90); RDW 14.7 % (11.5-15.5); WBC 5.9 k/uL (3.8-10.6)
[2018-05-20 09:26] LABS: Platelet Count 314 k/uL (150-450)
[2018-05-20 09:28] LABS: ALT 40 U/L (21-72); AST 54 U/L (17-59); Albumin 2.6 g/dL (3.5-5.0); Alkaline Phosphatase 140 U/L (38-126); Anion Gap 4 mmol/L; Blood Urea Nitrogen 5 mg/dL (9-20); Calcium 8.3 mg/dL (8.4-10.2); Carbon Dioxide 27 mmol/L (22-30); Chloride 106 mmol/L (98-107); Glucose 138 mg/dL (74-99); Potassium 3.9 mmol/L (3.5-5.1); Sodium 137 mmol/L (137-145); Total Bilirubin 1.6 mg/dL (0.2-1.3); Total Protein 5.6 g/dL (6.3-8.2)
[2018-05-20 09:31] LABS: INR 1.2 (<1.2); Prothrombin Time 11.8 sec (9.0-12.0)
[2018-05-20 09:50] LABS: Poikilocytosis (M) Present
[2018-05-20 11:11] VITALS: BP 92/63; PULSE 77
--- NOTE | 2018-05-20 13:25 | US ---
EXAMINATION TYPE: US paracentesis abd w/image DATE OF EXAM: 05/20/2018 COMPARISON: NONE HISTORY: Ascites. PROCEDURE: Maximal barrier technique was utilized. The skin overlying a suitable pocket of fluid was localized with ultrasound and the overlying skin was prepped and draped. Ultrasound was utilized with sterile technique. Lidocaine was used for local anesthesia and a skin jacquie made with a scalpel. Catheter was advanced under direct ultrasound guidance into a suitable pocket of fluid and approximately 4.5 liter s of serous fluid were removed. Catheter was withdrawn and hemostasis achieved. There is no immedia te complication; the patient is discharged in stable condition. IMPRESSION: STATUS POST ULTRASOUND GUIDED PARACENTESIS FOR PALLIATION OF ASCITES. THIS PROCEDURE WA S PERFORMED BY THE UNDERSIGNED.
== END 2018-05-20 11:40 | disposition home or self-care (01) ==
LOC: RADPROMAIN 08:15
PROVIDERS: ATTEND Physician Assistant
DX: R18.8 Other ascites (principal)
CPT/HCPCS: 36415; 49083; 80053; 85025; 85610

== ENCOUNTER 2018-07-06 07:10 | Day surgery (SDC) | payer BC ==
[2018-07-02 10:41] VITALS: BMI 27.5
[~2018-07-06 07:10] MED LIST: LACTATED RINGERS 1,000 ML IV SCH
[2018-07-06 08:04] VITALS: TEMP 98.2
[2018-07-06] MEDS ORDERED: LIDOCAINE 1% 20 ML VIAL (10MG/ML) FOR IV START INTRADERMA ONE (08:15)
[2018-07-06] MEDS ORDERED: PROPOFOL 10 MG/ML 20 ML VIAL IV ONE (08:43)
[2018-07-06 09:06] VITALS: RESP 16
--- NOTE | 2018-07-06 09:12 | P.PCN ---
Date of Procedure: 07/06/18 Procedure(s) Performed: Procedure: Esophagogastroduodenoscopy. Preoperative diagnosis: Chronic reflux symptoms and history of liver disease. Postoperative diagnosis: 1. Moderately sized hiatal hernia with no obvious esophagitis or complete reflux disease. 2. No evidence of esophageal varices. 3. Mild gastritis but no gastric varices. 4. Retained partially digested food in the stomach in the absence of mechanical obstruction to the gastric outlet raising the possibility of gastroparesis. Preparation and sedation: Was provided by anesthesia. Brief clinical history: The patient is a 48-year-old male with history of alcoholic liver disease and cirrhosis with portal hypertension and ascites that has required abdominal paracentesis several times over the last couple years, but no history of esophageal varices or bleeding. The patient has chronic reflux symptoms as well and he had an upper endoscopy more than 15 years ago and has taken PPIs since that time with recurrence of his symptoms whenever he misses a dose or 2. This evaluation is scheduled to assess for complicated reflux disease and to assess for varices to guide his therapeutic. Procedure: With the patient on his left lateral decubitus position and after informed consent and adequate sedation, I passed the Olympus-GIF 160 video upper endoscope through the cricopharyngeus down the esophagus. GE junction was around 36 cm from the incisors and there was a moderately sized hiatal hernia. The esophagus did not show any erosions, ulcers, strictures or Malcolm' s esophagus. There was no evidence of esophageal varices. The endoscope was then passed into the stomach which was insufflated with air and inspected in detail including the retroflex view in the cardia. There was some mottling and erythema in the stomach consistent with mild gastritis and there was significant amount of partially digested food in the stomach but there was no evidence of mechanical obstruction to the gastric outlet. Pyloric channel, duodenal bulb, post bulbar area and descending duodenum appeared normal. I did not obtain biopsies then the endoscope was withdrawn. The patient tolerated the procedure well. Plan: The patient was reassured. Discussed dietary and antireflux measures. He will follow up with you as planned and we will continue to follow up in our office and we will keep you updated on his progress. We would repeat his upper endoscopy in 2-3 years to assess for esophageal varices.
[2018-07-06 09:21] VITALS: BP 125/79; PULSE 69
== END 2018-07-06 09:34 | disposition home or self-care (01) ==
LOC: ORWHC2ENDO 07:10
DX: K29.70 Gastritis, unspecified, without bleeding (principal); K21.9 Gastro-esophageal reflux disease without esophagitis; K44.9 Diaphragmatic hernia without obstruction or gangrene; I10 Essential (primary) hypertension; G62.9 Polyneuropathy, unspecified; K74.60 Unspecified cirrhosis of liver; Z86.19 Personal history of other infectious and parasitic diseases; Z79.899 Other long term (current) drug therapy; Z79.891 Long term (current) use of opiate analgesic
CPT/HCPCS: 43235; J2704

== ENCOUNTER 2018-07-09 13:00 | Day surgery (SDC) | payer BC ==
[2018-07-09 13:26] VITALS: BP 105/70; PULSE 64; RESP 18; TEMP 98.3
[2018-07-09 13:43] LABS: ALT 22 U/L (21-72); AST 52 U/L (17-59); Alkaline Phosphatase 180 U/L (38-126); Anion Gap 6 mmol/L; Blood Urea Nitrogen 15 mg/dL (9-20); Carbon Dioxide 30 mmol/L (22-30); Chloride 100 mmol/L (98-107); Glucose 100 mg/dL (74-99); Potassium 4.5 mmol/L (3.5-5.1); Sodium 136 mmol/L (137-145); Total Bilirubin 0.5 mg/dL (0.2-1.3)
[2018-07-09 13:58] LABS: Basophils % (A) 1 %; Eosinophils # (A) 0.4 k/uL (0-0.7); Eosinophils % (A) 7 %; HCT 34.8 % (39.0-53.0); HGB 10.9 gm/dL (13.0-17.5); Hypochromasia Slight; Lymphocytes # (A) 1.5 k/uL (1.0-4.8); Lymphocytes % (A) 29 %; MCH 31.9 pg (25.0-35.0); MCHC 31.2 g/dL (31.0-37.0); Macrocytosis Slight; Mean Platelet Volume 8.2; Monocytes # (A) 0.4 k/uL (0-1.0); Monocytes % (A) 7 %; Neutrophils % (A) 55 %; Platelet Count 275 k/uL (150-450); RDW 15.3 % (11.5-15.5); WBC 5.4 k/uL (3.8-10.6)
[2018-07-09 14:07] LABS: MCV 102.3 fL (80.0-100.0)
--- NOTE | 2018-07-09 16:24 | US ---
Discontinued paracentesis HISTORY: Ascites Ultrasound performed in all 4 quadrants. Only minimal ascites present. IMPRESSION: Aborted paracentesis. Minimal ascites.
== END 2018-07-09 14:30 | disposition home or self-care (01) ==
LOC: RADPROMAIN 13:00
PROVIDERS: ATTEND Internal Medicine Gastroenterology
DX: K70.31 Alcoholic cirrhosis of liver with ascites (principal); Z53.8 Procedure and treatment not carried out for other reasons
CPT/HCPCS: 76705; 80053; 85025; 85610

== ENCOUNTER → 2018-07-21 | Outpatient (CLI) | payer BC ==
--- NOTE | 2018-07-22 14:01 | MR ---
EXAMINATION TYPE: MR brain wo/w con DATE OF EXAM: 07/21/2018 COMPARISON: CT brain 04/29/2018 HISTORY: Alternating exotropia/Dizziness TECHNIQUE: Multiplanar, multisequence images of the brain and brainstem is performed without and with IV contras t, utilizing 10 mL intravenous Gadavist . FINDINGS: Diffusion weighted images demonstrate no evidence of a recent infarct or other diffusion ab normality. There is no extra-axial fluid collection or significant white matter signal abnormality. The ventricular system and cisternal spaces are normal in size and appearance. The brain volume is age appropriate. Midline structures demonstrate normal morphology. The craniocervical junction appears within normal limits. Post contrast images demonstrate no abnormal enhancement. The dural venous sinuses appear pa tent. The visualized sinuses are clear and the globes are intact, correlate for strabismus. Minimal i nflammatory change present in the left temporal bone. IMPRESSION: Unremarkable brain MRI, findings compatible with patient's history. Additional findings a yovanny.
== END ==
LOC: RADMRIMAIN 15:07
PROVIDERS: ATTEND Ophthalmology
DX: H50.15 Alternating exotropia (principal)
CPT/HCPCS: 70553; A9581

== ENCOUNTER → 2018-09-07 | Outpatient (CLI) | payer BC ==
[2018-09-07 15:34] LABS: Basophils % (A) 0 %; Eosinophils # (A) 0.2 k/uL (0-0.7); Eosinophils % (A) 2 %; HCT 34.8 % (39.0-53.0); HGB 10.8 gm/dL (13.0-17.5); Hypochromasia Slight; Lymphocytes # (A) 1.2 k/uL (1.0-4.8); Lymphocytes % (A) 18 %; MCH 29.4 pg (25.0-35.0); MCHC 30.9 g/dL (31.0-37.0); Mean Platelet Volume 9.2; Monocytes # (A) 0.4 k/uL (0-1.0); Monocytes % (A) 6 %; Neutrophils # (A) 4.7 k/uL (1.3-7.7); Neutrophils % (A) 70 %; Platelet Count 150 k/uL (150-450); RBC 3.66 m/uL (4.30-5.90); RDW 14.4 % (11.5-15.5); WBC 6.8 k/uL (3.8-10.6)
[2018-09-07 15:38] LABS: INR 1.1 (<1.2); Prothrombin Time 10.8 sec (9.0-12.0)
[2018-09-07 15:45] LABS: MCV 95.2 fL (80.0-100.0)
[2018-09-07 18:52] LABS: Albumin/Globulin Ratio 1.9 (1.20-2.10); Anion Gap 7.2 mmol/L (4.00-12.00); Calcium 9.3 mg/dL (8.7-10.3); Carbon Dioxide 29.8 mmol/L (21.6-31.8); Globulin 2.1 g/dL (2.1-3.7); Potassium 4.8 mmol/L (3.5-5.5); Total Bilirubin 0.5 mg/dL (0.2-1.2); Total Protein 6.1 g/dL (6.2-8.2)
== END | disposition home or self-care (01) ==
LOC: LABWHC1 15:08
PROVIDERS: ATTEND Physician Assistant
DX: K70.31 Alcoholic cirrhosis of liver with ascites (principal)
CPT/HCPCS: 36415; 80053; 82105; 85025; 85610

== ENCOUNTER → 2018-09-28 | Outpatient (CLI) | payer BC ==
--- NOTE | 2018-09-28 08:07 | US ---
EXAMINATION TYPE: US liver DATE OF EXAM: 09/28/2018 COMPARISON: NONE CLINICAL HISTORY: K70.31 ALCOHOLIC CIRRHOSIS OF THE LIVER WITH ASCITIES. EXAM MEASUREMENTS: Liver Length: 18.0 cm Gallbladder Wall: 0.4 cm CBD: Appears to measure 0.8 cm Right Kidney: 9.4 x 4.5 x 5.2 cm Pancreas: Obscured by bowel gas Liver: enlarged and coarsened in echotexture, left lobe obscured by bowel gas Gallbladder: partially obscured by bowel gas, wall slightly thickened with elongation measuring up t o 11.1 cm. Evidence for sonographic Corral's sign: no CBD: Appears dilated Right Kidney: No hydronephrosis or masses seen No evident ascites. IMPRESSION: 1. Mild gallbladder wall thickening that may be on the basis of the adjacent hepatocellular disease h owever there is also hydropic size of the gallbladder and proximal common bile duct dilatation theref ore acute or chronic biliary dysfunction is also a consideration. HIDA scan with CCK is recommended. 2. Enlarged and coarsened hepatic echotexture compatible with the patient's known underlying hepatoce llular disease. 3. No ascites visualized. A Yellow level critical message alert has been initiated for Courtney Peñaloza MD via the [facility] Critical Results System on 09/28/2018 8:05 AM. This message alert has been sent to Courtney Peñaloza MD via the preferences provided by the clinician for the receipt of Radiology Critical Findings. Mess age ID [id number].
== END ==
LOC: RADUSWWP 06:52
PROVIDERS: ATTEND Internal Medicine Gastroenterology
DX: K82.8 Other specified diseases of gallbladder (principal); K70.31 Alcoholic cirrhosis of liver with ascites
CPT/HCPCS: 76705

== ENCOUNTER → 2019-01-10 | Outpatient (CLI) | payer BC ==
[2019-01-10 16:34] LABS: Basophils # (A) 0.1 k/uL (0-0.2); Basophils % (A) 1 %; Eosinophils # (A) 0.2 k/uL (0-0.7); Eosinophils % (A) 3 %; HCT 43.4 % (39.0-53.0); HGB 13.3 gm/dL (13.0-17.5); Lymphocytes # (A) 1.6 k/uL (1.0-4.8); Lymphocytes % (A) 20 %; MCHC 30.7 g/dL (31.0-37.0); MCV 91.3 fL (80.0-100.0); Mean Platelet Volume 7.4; Monocytes # (A) 0.5 k/uL (0-1.0); Monocytes % (A) 6 %; Neutrophils # (A) 5.6 k/uL (1.3-7.7); Neutrophils % (A) 69 %; Platelet Count 212 k/uL (150-450); RBC 4.76 m/uL (4.30-5.90); RDW 13.9 % (11.5-15.5); WBC 8.1 k/uL (3.8-10.6)
[2019-01-10 16:39] LABS: Prothrombin Time 10.5 sec (9.0-12.0)
[2019-01-10 23:37] LABS: Albumin 4.7 g/dL (3.80-4.90); Albumin/Globulin Ratio 2.04 (1.60-3.17); Calcium 9.7 mg/dL (8.7-10.3); Globulin 2.3 g/dL (1.6-3.3); Potassium 5.8 mmol/L (3.5-5.5); Total Bilirubin 0.3 mg/dL (0.2-1.2)
== END ==
LOC: LABWHC1 15:14
PROVIDERS: ATTEND Physician Assistant
DX: K70.31 Alcoholic cirrhosis of liver with ascites (principal)
CPT/HCPCS: 36415; 80053; 82105; 85025; 85610

== ENCOUNTER → 2019-05-12 | Outpatient (CLI) | payer BC ==
[2019-05-12 17:59] LABS: Basophils % (A) 1 %; Eosinophils # (A) 0.2 k/uL (0-0.7); Eosinophils % (A) 5 %; HCT 41.5 % (39.0-53.0); HGB 12.7 gm/dL (13.0-17.5); Lymphocytes # (A) 0.9 k/uL (1.0-4.8); Lymphocytes % (A) 21 %; MCH 28.1 pg (25.0-35.0); MCHC 30.7 g/dL (31.0-37.0); MCV 91.6 fL (80.0-100.0); Mean Platelet Volume 8.2; Monocytes # (A) 0.2 k/uL (0-1.0); Monocytes % (A) 5 %; Neutrophils # (A) 2.9 k/uL (1.3-7.7); Neutrophils % (A) 67 %; Platelet Count 197 k/uL (150-450); RBC 4.54 m/uL (4.30-5.90); RDW 15.3 % (11.5-15.5); WBC 4.4 k/uL (3.8-10.6)
[2019-05-12 18:01] LABS: Prothrombin Time 10.5 sec (9.0-12.0)
[2019-05-12 23:42] LABS: African American GFR (CKD) 135.9 (60.0-200.0); Albumin 4.3 g/dL (3.80-4.90); Albumin/Globulin Ratio 2.05 (1.60-3.17); Anion Gap 14.6 mmol/L (4.00-12.00); BUN/Creat Ratio 23.33 Ratio (12.00-20.00); Calcium 9.2 mg/dL (8.7-10.3); Carbon Dioxide 27.4 mmol/L (21.6-31.8); Globulin 2.1 g/dL (1.6-3.3); Non-African American GFR(CKD) 117.2 (60.0-200.0); Total Bilirubin 0.3 mg/dL (0.3-1.2); Total Protein 6.4 g/dL (6.2-8.2)
== END | disposition home or self-care (01) ==
LOC: LABWHC1 16:47
DX: K70.31 Alcoholic cirrhosis of liver with ascites (principal)
CPT/HCPCS: 36415; 80053; 82105; 85025; 85610

== ENCOUNTER → 2019-05-17 | Outpatient (CLI) | payer BC | END | disposition home or self-care (01) | LOC: LABWHC1 16:24 | PROVIDERS: ATTEND Physician Assistant | DX: R41.82 Altered mental status, unspecified (principal) | CPT/HCPCS: 36415; 82140 ==

== ENCOUNTER 2019-06-23 12:17 | Day surgery (SDC) | payer BC ==
[2019-06-23 12:53] LABS: Mean Platelet Volume 7.7; Platelet Count 240 k/uL (150-450)
[2019-06-23 13:00] LABS: African American GFR (CKD) >90 (>60 ml/min/1.73 sqM)
[2019-06-23 13:09] LABS: INR 0.9 (<1.2); Prothrombin Time 9.8 sec (9.0-12.0)
[2019-06-23 13:10] VITALS: BP 103/69; PULSE 76; RESP 16; TEMP 97.6
--- NOTE | 2019-06-23 15:56 | US ---
Discontinued paracentesis HISTORY: Ascites Ultrasound performed in all 4 quadrants is. No significant abnormal fluid collection. IMPRESSION: Aborted paracentesis.
== END 2019-06-23 13:15 | disposition home or self-care (01) ==
LOC: RADPROMAIN 12:17
PROVIDERS: ATTEND Internal Medicine Gastroenterology
DX: R18.8 Other ascites (principal)
CPT/HCPCS: 36415; 76705; 82565; 85049; 85610

== ENCOUNTER → 2019-09-05 | Outpatient (CLI) | payer BC ==
[2019-09-05 09:46] LABS: HCT 37.4 % (39.0-53.0); HGB 11.8 gm/dL (13.0-17.5); Hypochromasia Slight; MCH 28.8 pg (25.0-35.0); MCHC 31.4 g/dL (31.0-37.0); MCV 91.5 fL (80.0-100.0); Mean Platelet Volume 7.6; Platelet Count 196 k/uL (150-450); RBC 4.09 m/uL (4.30-5.90); RDW 14.8 % (11.5-15.5); WBC 6.3 k/uL (3.8-10.6)
[2019-09-05 09:49] LABS: INR 0.9 (<1.2); Prothrombin Time 9.7 sec (9.0-12.0)
[2019-09-05 15:58] LABS: ALT 66 U/L (10-49); AST 73 U/L (14-35); Albumin/Globulin Ratio 2.05 (1.60-3.17); Alkaline Phosphatase 197 U/L (41-126); Bilirubin, Conjugated <0.20 mg/dL (0.20-0.40); Globulin 2.1 g/dL (1.6-3.3); Total Bilirubin 0.3 mg/dL (0.2-1.2); Total Protein 6.4 g/dL (6.2-8.2)
== END | disposition home or self-care (01) ==
LOC: LABWHC1 08:31
PROVIDERS: ATTEND Physician Assistant
DX: K70.31 Alcoholic cirrhosis of liver with ascites (principal)
CPT/HCPCS: 36415; 80076; 85027; 85610

== ENCOUNTER → 2019-09-21 | Outpatient (CLI) | payer BC ==
--- NOTE | 2019-09-21 09:35 | US ---
EXAMINATION TYPE: US liver DATE OF EXAM: 09/21/2019 COMPARISON: US 2018 CLINICAL HISTORY: K70.31 Alcoholic cirrhosis of liver with ascites. Patient states no other symptoms EXAM MEASUREMENTS: Liver Length: 19.4 cm Gallbladder Wall: 0.3 cm CBD: 0.6 cm Right Kidney: 10.6 x 5.6 x 5.4 cm Pancreas: obscured by overlying midline bowel gas Liver: enlarged, mildly course echotexture, left lobe limited by overlying midline bowel gas Gallbladder: 0.9cm echogenic focus, low level echoes seen within dependant potion, wall measures in upper limits of normal at 0.3cm Evidence for sonographic Corral's sign: no CBD: 0.6cm Right Kidney: wnl IMPRESSION: 1. Coarsened hepatic echotexture in keeping with this patient's history of cirrhosis. No focal mass i s seen however the left lobe is limited by overlying bowel gas. 2. Cholelithiasis without sonographic evidence of acute cholecystitis. 3. No ascites visualized in the right upper quadrant.
== END ==
LOC: RADUSWWP 08:08
PROVIDERS: ATTEND Family Medicine
DX: K80.20 Calculus of gallbladder without cholecystitis without obstruction (principal); R93.2 Abnormal findings on diagnostic imaging of liver and biliary tract
CPT/HCPCS: 76705

== ENCOUNTER → 2019-11-08 | Outpatient (CLI) | payer BC ==
--- NOTE | 2019-11-08 14:52 | NM ---
EXAMINATION TYPE: NM bone 3 phase DATE OF EXAM: 11/08/2019 COMPARISON: NONE HISTORY: L97.522 Non-pressure chronic ulcer Triple phase bone scintigraphy was performed following the injection of 24.8 mCi Tc 99m MDP. Immedia te images and 3 hours post injection images acquired. FINDINGS: On all 3 phases of the examination there is increased radiotracer accumulation noted to involve the g reat toe distal phalanx on the right. Underlying osteomyelitis is not excluded. Another is degenerati ve uptake involving the first metatarsophalangeal joints bilaterally as well as the right ankle and r ight mid foot. IMPRESSION: I cannot exclude underlying osteomyelitis of the distal phalanx right great toe. Correlate clinically .
== END | disposition home or self-care (01) ==
LOC: RADNMMAIN 07:20
PROVIDERS: ATTEND Thoracic Surgery (Cardiothoracic Vascular Surgery)
DX: L97.512 Non-pressure chronic ulcer of other part of right foot with fat layer exposed (principal); L97.522 Non-pressure chronic ulcer of other part of left foot with fat layer exposed; G62.1 Alcoholic polyneuropathy
CPT/HCPCS: 78315; A9503

== ENCOUNTER 2019-11-21 06:34 | Inpatient (IN) | payer BC ==
[2019-11-21] MEDS ORDERED: SODIUM CHLORIDE 0.9% 1,000 ML IV STA (07:17)
--- NOTE | 2019-11-21 07:23 | ED ---
General Adult HPI - General Chief complaint: Weakness Stated complaint: Weakness Time Seen by Provider: 11/21/19 06:58 Source: patient, family, RN notes reviewed Mode of arrival: wheelchair Limitations: physical limitation - History of Present Illness Initial comments: Patient is a pleasant 49-year-old male presenting to the emergency department with family with fatigue and generalized weakness. Onset of symptoms was around 4 days ago. Patient does have known cirrhosis. Patient has had some minimal confusion described as not knowing what status. Patient feels generally weak. Patient has been sleeping a lot. Patient is fatigued. Patient did have a fever a few days ago. No solid food intake in the last 2 days. Limited liquid intake over the past 3 days. No complaints of pain. Patient also has known bilateral foot ulcers. Left foot is casted. - Related Data Home Medications Medication Instructions Recorded Confirmed Buprenorphine HCl/Naloxone HCl 1 film SL DAILY 11/04/16 06/21/19 [Suboxone 8 mg-2 mg Sl Film] Betamethasone Dipropionate 1 applic TOPICAL BID PRN 04/29/18 06/21/19 [Betamethasone Dipropionate 0.05%] Cyanocobalamin [Vitamin B-12] 500 mcg PO DAILY 05/20/18 06/21/19 Folic Acid 1 mg PO DAILY 05/20/18 06/21/19 Lactulose [Constulose] 10 gm PO TID 05/20/18 06/23/19 Modafinil [Provigil] 200 mg PO BID 05/20/18 06/21/19 Pantoprazole Sodium [Protonix] 40 mg PO DAILY 05/20/18 06/21/19 Spironolact/Hydrochlorothiazid 50 mg PO DAILY 05/20/18 06/21/19 [Aldactazide 50-50 MG] Furosemide [Lasix] 40 mg PO DAILY 06/29/18 06/21/19 Pregabalin [Lyrica] 400 mg PO DAILY 06/21/19 06/21/19 Previous Rx's Medication Instructions Recorded Thiamine [Vitamin B-1] 100 mg PO DAILY #30 tab 11/06/16 Allergies Allergy/AdvReac Type Severity Reaction Status Date / Time No Known Allergies Allergy Verified 11/21/19 06:47 Review of Systems ROS Statement: Those systems with pertinent positive or pertinent negative responses have been documented in the HPI. ROS Other: All systems not noted in ROS Statement are negative. Constitutional: Reports: as per HPI, fever Eyes: Denies: eye pain ENT: Denies: ear pain Respiratory: Denies: cough, dyspnea Cardiovascular: Denies: chest pain Endocrine: Reports: fatigue Gastrointestinal: Denies: abdominal pain Genitourinary: Denies: dysuria Musculoskeletal: Denies: back pain Skin: Denies: rash Neurological: Reports: confusion. Denies: weakness Past Medical History Past Medical History: GERD/Reflux, Liver Disease, Pneumonia Additional Past Medical History / Comment(s): uzma leg and feet neuropathy, uses walker occasionally, back pain, ascities, cirrhosis, pancreatitis, pleural effusions. History of Any Multi-Drug Resistant Organisms: None Reported Past Surgical History: Adenoidectomy, Back Surgery, Hernia Repair, Tonsillectomy Additional Past Surgical History / Comment(s): OPEN HEART SURGERY A CHILD FOR A PIECE OF GLASS LODGED IN HIS HEART, large volume Paracentesis, last one 06/16/18, RT INGUINAL HERNIA Past Anesthesia/Blood Transfusion Reactions: No Reported Reaction Past Psychological History: No Psychological Hx Reported Smoking Status: Former smoker Past Alcohol Use History: None Reported, Daily Past Drug Use History: None Reported - Past Family History Father History Unknown: Yes Additional Family Medical History / Comment(s): HEALTHY Mother Family Medical History: Diabetes Mellitus General Exam Limitations: physical limitation General appearance: alert, in no apparent distress Head exam: Present: normocephalic Eye exam: Present: normal appearance, PERRL, EOMI ENT exam: Present: normal oropharynx Neck exam: Present: normal inspection Respiratory exam: Present: normal lung sounds bilaterally Cardiovascular Exam: Present: regular rate, normal rhythm GI/Abdominal exam: Present: soft. Absent: distended, tenderness Extremities exam: Present: other (Cast of the left foot) Neurological exam: Present: alert, CN II-XII intact. Absent: motor sensory deficit Psychiatric exam: Present: flat affect Skin exam: Present: other (Right first digit on the plantar surface with 1 cm ulcer. There is also some mild erythema on the dorsal side to the MCP.) Course Vital Signs 11/21/19 06:43 Temperature 97.5 F L Pulse Rate 80 Respiratory 18 Rate Blood Pressure 141/84 O2 Sat by Pulse 97 Oximetry EKG Findings - EKG Comments: EKG Findings:: Normal sinus rhythm 70. [place] 182. QRS 118. QT 488. QTC 527. Left axis. Left anterior fascicular block. No acute ST change. Medical Decision Making - Medical Decision Making Patient reevaluated. Patient and family updated on results and plan. Case was discussed in detail with Dr. Blackman, who will admit covering for Dr. Stevens. - Lab Data Result diagrams: 11/21/19 07:09 11/21/19 07:09 Lab Results 11/21/19 11/21/19 11/21/19 Range/Units 07:09 07:09 07:09 WBC 4.4 (3.8-10.6) k/uL RBC 4.78 (4.30-5.90) m/uL Hgb 12.8 L (13.0-17.5) gm/dL Hct 40.8 (39.0-53.0) % MCV 85.5 (80.0-100.0) fL MCH 26.8 (25.0-35.0) pg MCHC 31.3 (31.0-37.0) g/dL RDW 15.6 H (11.5-15.5) % Plt Count 212 (150-450) k/uL Neutrophils % 70 % Lymphocytes % 20 % Monocytes % 4 % Eosinophils % 4 % Basophils % 1 % Neutrophils # 3.1 (1.3-7.7) k/uL Lymphocytes # 0.9 L (1.0-4.8) k/uL Monocytes # 0.2 (0-1.0) k/uL Eosinophils # 0.2 (0-0.7) k/uL Basophils # 0.0 (0-0.2) k/uL PT (9.0-12.0) sec INR (<1.2) APTT (22.0-30.0) sec Sodium 136 L (137-145) mmol/L Potassium 3.9 (3.5-5.1) mmol/L Chloride 99 (98-107) mmol/L Carbon Dioxide 21 L (22-30) mmol/L Anion Gap 16 mmol/L BUN 11 (9-20) mg/dL Creatinine 0.49 L (0.66-1.25) mg/dL Est GFR (CKD-EPI)AfAm >90 (>60 ml/min/1.73 sqM) Est GFR (CKD-EPI)NonAf >90 (>60 ml/min/1.73 sqM) Glucose 96 (74-99) mg/dL Plasma Lactic Acid Abhijit 0.8 (0.7-2.0) mmol/L Calcium 9.3 (8.4-10.2) mg/dL Phosphorus 4.6 H (2.5-4.5) mg/dL Magnesium 1.9 (1.6-2.3) mg/dL Total Bilirubin 0.7 (0.2-1.3) mg/dL AST 193 H (17-59) U/L ALT 39 (4-49) U/L Alkaline Phosphatase 137 H (38-126) U/L Ammonia 21 (<30) umol/L Creatine Kinase 3950 H* (55-170) U/L Troponin I (0.000-0.034) ng/mL Total Protein 7.2 (6.3-8.2) g/dL Albumin 4.1 (3.5-5.0) g/dL TSH 0.338 L (0.465-4.680) mIU/L Free T4 1.13 (0.78-2.19) ng/dL Free T3 pg/mL 3.9 (2.8-5.3) pg/ml 11/21/19 11/21/19 Range/Units 07:09 07:09 WBC (3.8-10.6) k/uL RBC (4.30-5.90) m/uL Hgb (13.0-17.5) gm/dL Hct (39.0-53.0) % MCV (80.0-100.0) fL MCH (25.0-35.0) pg MCHC (31.0-37.0) g/dL RDW (11.5-15.5) % Plt Count (150-450) k/uL Neutrophils % % Lymphocytes % % Monocytes % % Eosinophils % % Basophils % % Neutrophils # (1.3-7.7) k/uL Lymphocytes # (1.0-4.8) k/uL Monocytes # (0-1.0) k/uL Eosinophils # (0-0.7) k/uL Basophils # (0-0.2) k/uL PT 10.1 (9.0-12.0) sec INR 1.0 (<1.2) APTT 24.7 (22.0-30.0) sec Sodium (137-145) mmol/L Potassium (3.5-5.1) mmol/L Chloride (98-107) mmol/L Carbon Dioxide (22-30) mmol/L Anion Gap mmol/L BUN (9-20) mg/dL Creatinine (0.66-1.25) mg/dL Est GFR (CKD-EPI)AfAm (>60 ml/min/1.73 sqM) Est GFR (CKD-EPI)NonAf (>60 ml/min/1.73 sqM) Glucose (74-99) mg/dL Plasma Lactic Acid Abhijit (0.7-2.0) mmol/L Calcium (8.4-10.2) mg/dL Phosphorus (2.5-4.5) mg/dL Magnesium (1.6-2.3) mg/dL Total Bilirubin (0.2-1.3) mg/dL AST (17-59) U/L ALT (4-49) U/L Alkaline Phosphatase (38-126) U/L Ammonia (<30) umol/L Creatine Kinase (55-170) U/L Troponin I <0.012 (0.000-0.034) ng/mL Total Protein (6.3-8.2) g/dL Albumin (3.5-5.0) g/dL TSH (0.465-4.680) mIU/L Free T4 (0.78-2.19) ng/dL Free T3 pg/mL (2.8-5.3) pg/ml - Radiology Data Radiology results: image reviewed (Bilateral foot x-ray shows soft tissue swelling left fifth metatarsal. No suspicion of underlying osteomyelitis. Two- view chest x-ray shows probable atelectasis.) Disposition Clinical Impression: Rhabdomyolysis, Hepatic encephalopathy Disposition: ADMITTED IP TO THIS HOSP Is patient prescribed a controlled substance at d/c from ED?: No Referrals: Alexander Randhawa MD [Primary Care Provider] - 1-2 days Decision Time: 09:41
[2019-11-21 07:31] LABS: Basophils % (A) 1 %; Eosinophils # (A) 0.2 k/uL (0-0.7); Eosinophils % (A) 4 %; HCT 40.8 % (39.0-53.0); HGB 12.8 gm/dL (13.0-17.5); Lymphocytes # (A) 0.9 k/uL (1.0-4.8); Lymphocytes % (A) 20 %; MCH 26.8 pg (25.0-35.0); MCHC 31.3 g/dL (31.0-37.0); MCV 85.5 fL (80.0-100.0); Mean Platelet Volume 7.9; Monocytes # (A) 0.2 k/uL (0-1.0); Monocytes % (A) 4 %; Neutrophils # (A) 3.1 k/uL (1.3-7.7); Neutrophils % (A) 70 %; Platelet Count 212 k/uL (150-450); RBC 4.78 m/uL (4.30-5.90); RDW 15.6 % (11.5-15.5); WBC 4.4 k/uL (3.8-10.6)
[2019-11-21 07:38] LABS: Lactic Acid, Venous 0.8 mmol/L (0.7-2.0)
[2019-11-21 07:40] LABS: ALT 39 U/L (4-49); AST 193 U/L (17-59); African American GFR (CKD) >90 (>60 ml/min/1.73 sqM); Albumin 4.1 g/dL (3.5-5.0); Alkaline Phosphatase 137 U/L (38-126); Anion Gap 16 mmol/L; Blood Urea Nitrogen 11 mg/dL (9-20); Calcium 9.3 mg/dL (8.4-10.2); Carbon Dioxide 21 mmol/L (22-30); Chloride 99 mmol/L (98-107); Glucose 96 mg/dL (74-99); Magnesium 1.9 mg/dL (1.6-2.3); Non-African American GFR(CKD) >90 (>60 ml/min/1.73 sqM); Phosphorus 4.6 mg/dL (2.5-4.5); Potassium 3.9 mmol/L (3.5-5.1); Sodium 136 mmol/L (137-145); Total Bilirubin 0.7 mg/dL (0.2-1.3); Total Protein 7.2 g/dL (6.3-8.2)
[2019-11-21 07:41] LABS: Partial Thromboplastin Time 24.7 sec (22.0-30.0); Prothrombin Time 10.1 sec (9.0-12.0)
[2019-11-21 07:56] LABS: T4, Free (Free Thyroxine) 1.13 ng/dL (0.78-2.19)
--- NOTE | 2019-11-21 08:20 | XR ---
EXAMINATION TYPE: XR chest 2V DATE OF EXAM: 11/21/2019 COMPARISON: 05/04/2018 INDICATION: Weakness TECHNIQUE: Frontal and lateral views of the chest are obtained. FINDINGS: The heart size is normal. The pulmonary vasculature is normal. There is mild bibasilar infiltrates. Correlate for subsegmental atelectasis. A suspicious focal conso lidation is not evident. IMPRESSION: 1. Mild bibasilar infiltrates most likely subsegmental atelectasis.
--- NOTE | 2019-11-21 08:23 | XR ---
EXAMINATION TYPE: XR foot complete bilateral DATE OF EXAM: 11/21/2019 COMPARISON: None HISTORY: Nonhealing wound bilateral feet fever TECHNIQUE: Bilateral feet are examined in 3 projections each. Images of the left foot are obtained th rough bandaging which creates some overlying artifact. FINDINGS: Left foot: Plantar and Achilles tendon calcaneal heel spurs are present. Hallux valgus deformity is p resent. There is soft tissue swelling over the fifth metatarsophalangeal joint space. Right foot: There is narrowing of the first metatarsophalangeal joint space. Some proximal interphala ngeal joint space narrowing is noted. Achilles tendon calcaneal heel spur is present. Soft tissues ar e normal. IMPRESSION: 1. Soft tissue swelling left fifth metatarsal phalangeal joint space. 2. Left hallux valgus deformity. 3. No suspicious cortical erosions to suggest underlying osteomyelitis.
[2019-11-21 08:24] LABS: Creatine Kinase 3950 U/L (55-170)
[2019-11-21 09:41] LABS: Appearance,Urine Clear (Clear); Bilirubin,Urine Negative (Negative); Blood,Urine Large (Negative); Color,Urine Yellow; Glucose,Urine (UA) Negative (Negative); Hyaline Casts,Urine 1 /lpf (0-2); Ketones,Urine 4+ (Negative); Leukocyte Esterase,Urine Negative (Negative); Nitrite,Urine Negative (Negative); Protein,Urine 1+ (Negative); Specific Gravity,Urine 1.022 (1.001-1.035); Urobilinogen,Urine <2.0 mg/dL (<2.0); WBC,Urine <1 /hpf (0-5)
[2019-11-21] MEDS ORDERED: NALOXONE 0.4 MG/ML 1 ML VIAL IV PRN (09:42)
[2019-11-21] MEDS: SODIUM CHLORIDE 0.9% 1,000 ML IV SCH ×2 (11:14→18:15)
[2019-11-21] MEDS: LACTULOSE 20 GM/30 ML CUP PO SCH ×3 (13:48→21:32)
[2019-11-21 16:51] LABS: Glucose,Whole Blood 98 mg/dL (75-99)
[2019-11-21 20:58] LABS: Glucose,Whole Blood 77 mg/dL (75-99)
[2019-11-21] MEDS ORDERED: ARMODAFINIL 250 MG PO SCH (21:00)
[2019-11-21] MEDS ORDERED: NORTRIPTYLINE 25 MG CAP PO SCH (21:00)
[2019-11-21] MEDS: SPIRONOLACTONE 25 MG TAB PO SCH (21:31)
[2019-11-21] MEDS: RIFAXIMIN 550 MG TABLET PO SCH (21:31)
[2019-11-21] MEDS ORDERED: PREGABALIN 100 MG CAP PO SCH (22:00)
[2019-11-21] MEDS: BUPRENORPHINE HCL 8 MG PO SCH (22:11)
--- NOTE | 2019-11-21 23:15 | P.HPIM ---
History of Present Illness H&P Date: 11/21/19 Chief Complaint: Lethargic History of presenting complaint: This is a pleasant 49-year-old patient of Dr. ortiz. Chronic stable medical conditions include alcoholic cirrhosis, portal hypertension, hyperlipidemia, peripheral neuropathy. Patient presents after feeling lethargic for 3-4 days a brother sleepy. Denies any fever and chills. Decreased appetite. Patient has a mole on the left foot be followed with The wound care center. His been there for for about a month started as a callus. Also got a callus on the right toe. Denies any injury from any sorts. Review of systems: GEN.: Tired EYES: None HEENT: None NECK: None RESPIRATORY: None CARDIOVASCULAR: None GASTROINTESTINAL: Constipation GENITOURINARY: None MUSCULOSKELETAL: 4 towards LYMPHATICS: None HEMATOLOGICAL: None PSYCHIATRY: None NEUROLOGICAL: Numbness in both the feet Past medical history to include: Alcoholic cirrhosis, portal hypertension, hypoalbuminemia, peripheral neuropathy from alcohol, left foot wound, GERD ascites with multiple paracentesis pancreatitis hiatal hernia chronic low back pain Social history: Lives with his does use a walker started smoking in 1996, a pack a day stopped in December 2016. Patient used to do heavy alcohol in the past stopped in September 2016. Previous opiate dependence not uses Suboxone. Physical examination: VITAL SIGNS: 97.5, 80, 18, 141/84, 97% room air GENERAL: BMI 30.8, laying in bed tired. EYES: Pupils equal. Conjunctiva normal. HEENT: External appearance of nose and ears normal, oral cavity grossly normal. NECK: JVD not raised; masses not palpable. HEART: First and second heart sounds are normal; no edema. LUNGS: Respiratory rate normal; decreased breath sounds. ABDOMEN: Soft, nontender, liver spleen not palpable, possible hepatomegaly. PSYCH: Alert and oriented x3; mood and affect tired appearingl. NEUROLOGICAL: Cranial nerves grossly intact; no facial asymmetry, power and sensation grossly intact. DERMATOLOGICAL: Left foot wound, callus on the right big toe LYMPHATICS: No lymph nodes palpable in the axilla and neck INVESTIGATIONS, reviewed in the clinical context: White count 4.4 hemoglobin 12.8 platelets 212 potassium 3.9 creatinine 0.49 CPK-3950, 4453 albumin 4.1 EKG tracing personally reviewed by ga-normal sinus rhythm Chest x-ray film personally reviewed by me-possible infiltrates/atelectasis Assessment: -This is a patient who presents with 3-4 days and increasing lethargy. Not eati ng. Ketonuria. Given the history of cirrhosis entirely possible patient may have alcoholic encephalopathy. -Alcoholic cirrhosis -Portal hypertension -Diabetic peripheral neuropathy -Left foot wound secondary neuropathy -GERD -Chronic hiatal hernia Plan: Recheck patient's ammonia level. Do neuro checks every 4 hours. Consult GI. Start the patient on lactulose. Home medications resumed. We'll gently hydrate the patient. Consult Dr. rider for the wound care. Care was discussed with the patient. Past Medical History Past Medical History: GERD/Reflux, Liver Disease, Pneumonia, Skin Disorder Additional Past Medical History / Comment(s): Past ETOH abuse-has not drank since 2016, ascities with numerous paracenteisi, AMS/high amylase/vented, pancreatitis, chronic anemia, hiatal hernia, neuropathy bilateral legs/feet and has sores bilateral feet with L foot casted, chronic back pain. History of Any Multi-Drug Resistant Organisms: None Reported Past Surgical History: Adenoidectomy, Back Surgery, Hernia Repair, Tonsillectomy Additional Past Surgical History / Comment(s): Open heart surgery to remove glass from heart (fell into glass on a door), low back surgery, R inguinal hernia repair, EGD, I&D L foot wound Past Anesthesia/Blood Transfusion Reactions: No Reported Reaction Smoking Status: Former smoker - Past Family History Father History Unknown: Yes Family Medical History: Dementia Additional Family Medical History / Comment(s): Father is living. Mother Family Medical History: Diabetes Mellitus Additional Family Medical History / Comment(s): Mother is . Medications and Allergies Home Medications Medication Instructions Recorded Confirmed Type Thiamine [Vitamin B-1] 100 mg PO DAILY #30 tab 11/06/16 11/21/19 Rx Folic Acid 1 mg PO DAILY 05/20/18 11/21/19 History Lactulose [Constulose] 20 gm PO AC-TID 05/20/18 11/21/19 History Modafinil [Provigil] 200 mg PO BID 05/20/18 11/21/19 History Pregabalin [Lyrica] 200 mg PO TID 06/21/19 11/21/19 History Armodafinil 250 mg PO HS 11/21/19 11/21/19 History Buprenorphine HCl [Subutex] 8 mg SL ACHS 11/21/19 11/21/19 History Cephalexin [Keflex] 500 mg PO Q6H 11/21/19 11/21/19 History Furosemide [Lasix] 20 mg PO DAILY 11/21/19 11/21/19 History Nortriptyline [Pamelor] 50 mg PO HS 11/21/19 11/21/19 History Omeprazole [PriLOSEC] 40 mg PO DAILY 11/21/19 11/21/19 History Rifaximin [Xifaxan] 550 mg PO TID 11/21/19 11/21/19 History Spironolactone [Aldactone] 50 mg PO BID 11/21/19 11/21/19 History Allergies Allergy/AdvReac Type Severity Reaction Status Date / Time No Known Allergies Allergy Verified 11/21/19 10:18 Physical Exam Vitals: Vital Signs Temp Pulse Resp BP Pulse Ox 11/21/19 09:51 75 19 134/80 95 11/21/19 06:43 97.5 F L 80 18 141/84 97 Intake and Output 11/20/19 11/21/19 11/21/19 22:59 06:59 14:59 Other: Weight 117.934 kg 117.934 kg Results CBC & Chem 7: 11/21/19 07:09 11/21/19 07:09 Labs: Abnormal Lab Results - Last 24 Hours (Table) 11/21/19 11/21/19 11/21/19 Range/Units 07:09 07:09 09:20 Hgb 12.8 L (13.0-17.5) gm/dL RDW 15.6 H (11.5-15.5) % Lymphocytes # 0.9 L (1.0-4.8) k/uL Sodium 136 L (137-145) mmol/L Carbon Dioxide 21 L (22-30) mmol/L Creatinine 0.49 L (0.66-1.25) mg/dL Phosphorus 4.6 H (2.5-4.5) mg/dL AST 193 H (17-59) U/L Alkaline Phosphatase 137 H (38-126) U/L Creatine Kinase 3950 H* (55-170) U/L TSH 0.338 L (0.465-4.680) mIU/L Urine Protein 1+ H (Negative) Urine Ketones 4+ H (Negative) Urine Blood Large H (Negative) Thrombosis Risk Factor Assmnt - Choose All That Apply Any of the Below Risk Factors Present?: Yes Each Factor Represents 1 point: Age 41-60 years, Obesity (BMI >25) Other Risk Factors: No Other congenital or acquired thrombophilia - If yes, enter type in comment: No Thrombosis Risk Factor Assessment Total Risk Factor Score: 2 Thrombosis Risk Factor Assessment Level: Low Risk
[2019-11-21] MEDS ORDERED: DEXTROSE 5%-0.45% NACL 1,000 ML IV SCH (23:30)
--- NOTE | 2019-11-22 00:20 | P.CONS ---
History of Present Illness - Reason for Consult Consult date: 11/21/19 Bilateral foot ulcer Requesting physician: Janes Blackman - Chief Complaint Weakness and lethargy 4 days - History of Present Illness Patient is a 49-year-old male with a past medical history significant for alcoholic cirrhosis in this patient who did have bilateral foot plantar ulcers for the patient is treated at [facility] current local wound care to the left foot also has been total contact cast however it is not very clear when exactly this cast was applied as patient was not sure about it at the same time the patient also have a wound on the plantar aspect of the right big toe but no specifically the patient said he is not sure for how he has this wound but denies significant pain in the right foot plantar wound area patient has been brought into the hospital with concern for increasing lethargy and weakness and decreased appetite is a history of any fever or any chills or vomiting or any diarrhea has been reported patient did have x-rays of the bilateral feet. Tissue some soft tissue swelling on the left side but no evidence of any bony abnormality on the right big toe plantar wound area infection disease was consulted for further management of his right big toe plantar wound and concern for possible cellulitis, history remains to be limited because of his mental status and her family member at the bedside Review of Systems Positive points has been mentioned in HPI complete review could not be obtained because of his underlying mental status Past Medical History Past Medical History: GERD/Reflux, Liver Disease, Pneumonia, Skin Disorder Additional Past Medical History / Comment(s): Past ETOH abuse-has not drank since 2016, ascities with numerous paracenteisi, AMS/high amylase/vented, pancreatitis, chronic anemia, hiatal hernia, neuropathy bilateral legs/feet and has sores bilateral feet with L foot casted, chronic back pain. History of Any Multi-Drug Resistant Organisms: None Reported Past Surgical History: Adenoidectomy, Back Surgery, Hernia Repair, Tonsillectomy Additional Past Surgical History / Comment(s): Open heart surgery to remove glass from heart (fell into glass on a door), low back surgery, R inguinal hernia repair, EGD, I&D L foot wound Past Anesthesia/Blood Transfusion Reactions: No Reported Reaction Smoking Status: Former smoker - Past Family History Father History Unknown: Yes Family Medical History: Dementia Additional Family Medical History / Comment(s): Father is living. Mother Family Medical History: Diabetes Mellitus Additional Family Medical History / Comment(s): Mother is . Medications and Allergies Home Medications Medication Instructions Recorded Confirmed Type Thiamine [Vitamin B-1] 100 mg PO DAILY #30 tab 11/06/16 11/21/19 Rx Folic Acid 1 mg PO DAILY 05/20/18 11/21/19 History Lactulose [Constulose] 20 gm PO AC-TID 05/20/18 11/21/19 History Modafinil [Provigil] 200 mg PO BID 05/20/18 11/21/19 History Pregabalin [Lyrica] 200 mg PO TID 06/21/19 11/21/19 History Armodafinil 250 mg PO HS 11/21/19 11/21/19 History Buprenorphine HCl [Subutex] 8 mg SL ACHS 11/21/19 11/21/19 History Cephalexin [Keflex] 500 mg PO Q6H 11/21/19 11/21/19 History Furosemide [Lasix] 20 mg PO DAILY 11/21/19 11/21/19 History Nortriptyline [Pamelor] 50 mg PO HS 11/21/19 11/21/19 History Omeprazole [PriLOSEC] 40 mg PO DAILY 11/21/19 11/21/19 History Rifaximin [Xifaxan] 550 mg PO TID 11/21/19 11/21/19 History Spironolactone [Aldactone] 50 mg PO BID 11/21/19 11/21/19 History Allergies Allergy/AdvReac Type Severity Reaction Status Date / Time No Known Allergies Allergy Verified 11/21/19 10:18 Physical Exam Vitals: Vital Signs Temp Pulse Pulse Resp BP BP Pulse Ox 11/21/19 20:55 97.4 F L 77 18 127/78 98 11/21/19 14:45 97.3 F L 84 14 126/77 95 11/21/19 13:30 70 18 110/63 96 11/21/19 13:00 72 22 121/72 96 11/21/19 12:30 65 15 131/74 98 11/21/19 12:00 73 15 139/81 98 11/21/19 11:30 68 24 123/73 97 11/21/19 11:00 68 22 123/70 96 11/21/19 10:30 70 23 131/80 97 11/21/19 10:00 79 26 H 134/80 95 11/21/19 09:51 75 19 134/80 95 11/21/19 06:43 97.5 F L 80 18 141/84 97 Intake and Output 11/21/19 11/21/19 11/22/19 14:59 22:59 06:59 Output Total 1000 Balance -1000 Output: Urine 1000 Other: Weight 117.934 kg GENERAL DESCRIPTION: Middle-aged male lying in bed, no distress. No tachypnea or accessory muscle of respiration use. HEENT: Shows Pallor , no scleral icterus. Oral mucous membrane is dry. No pharyngeal erythema or thrush NECK: Trachea central, no thyromegaly. LUNGS: Unlabored breathing. Clear to auscultation anteriorly. No wheeze or crackle. HEART: S1, S2, regular rate and rhythm. No loud murmur ABDOMEN: Soft, no tenderness , guarding or rigidity, no organomegaly EXTREMITIES: No edema of feet. Left foot is currently in total contact cast ri ght big toe plantar wound with no significant slough tissue minimal surrounding swelling and redness SKIN: No rash, no masses palpable. NEUROLOGICAL: The patient is lethargic but arousable, mood and affect normal. Results CBC & Chem 7: 11/21/19 07:09 11/21/19 07:09 Labs: Abnormal Lab Results - Last 24 Hours (Table) 11/21/19 11/21/19 11/21/19 Range/Units 07:09 07:09 09:20 Hgb 12.8 L (13.0-17.5) gm/dL RDW 15.6 H (11.5-15.5) % Lymphocytes # 0.9 L (1.0-4.8) k/uL Sodium 136 L (137-145) mmol/L Carbon Dioxide 21 L (22-30) mmol/L Creatinine 0.49 L (0.66-1.25) mg/dL Phosphorus 4.6 H (2.5-4.5) mg/dL AST 193 H (17-59) U/L Alkaline Phosphatase 137 H (38-126) U/L Creatine Kinase 3950 H* (55-170) U/L TSH 0.338 L (0.465-4.680) mIU/L Urine Protein 1+ H (Negative) Urine Ketones 4+ H (Negative) Urine Blood Large H (Negative) 11/21/19 11/21/19 Range/Units 14:10 21:05 Hgb (13.0-17.5) gm/dL RDW (11.5-15.5) % Lymphocytes # (1.0-4.8) k/uL Sodium (137-145) mmol/L Carbon Dioxide (22-30) mmol/L Creatinine (0.66-1.25) mg/dL Phosphorus (2.5-4.5) mg/dL AST (17-59) U/L Alkaline Phosphatase (38-126) U/L Creatine Kinase 4453 H* 7878 H* (55-170) U/L TSH (0.465-4.680) mIU/L Urine Protein (Negative) Urine Ketones (Negative) Urine Blood (Negative) Assessment and Plan Assessment: 1-patient with right big toe plantar wound likely a pressure ulcer with some surrounding callus minimal redness underlying cellulitis less likely were not entirely excluded likely from gram-positive skin roscoe 2-left foot wound currently covered in a total contact cast (1) Wound of right foot Current Visit: Yes Status: Acute Code(s): S91.301A - UNSPECIFIED OPEN WOUND, RIGHT FOOT, INITIAL ENCOUNTER SNOMED Code(s): 373406456 Plan: 1-local wound care to the right foot plantar wound with a dry Aquacel silver dressing to be changed every 48 hour 2-medical student a short course of cefazolin 2 g every 8 hours awaiting for condition to stabilize and culture finalized 3-wound care evaluation for removal of the left leg total contact cast if it has been there for at least 7 days at which time left foot wound could be examined We will follow on clinical condition and cultures to further adjust medication if needed Thank you for this consultation will follow this patient with you Time with Patient: Greater than 30
[2019-11-22] MEDS: ENOXAPARIN 40 MG/0.4 ML SYRINGE SQ SCH ×2 (01:03→21:52)
[2019-11-22] MEDS: DEXTROSE 5%-0.45% NACL 1,000 ML IV SCH ×4 (01:06→23:23)
[2019-11-22 07:10] LABS: Glucose,Whole Blood 115 mg/dL (75-99)
[2019-11-22] MEDS ORDERED: PANTOPRAZOLE 40 MG TABLET PO SCH (07:30)
[2019-11-22] MEDS: BUPRENORPHINE HCL 8 MG PO SCH ×4 (07:37→21:49)
[2019-11-22] MEDS: RIFAXIMIN 550 MG TABLET PO SCH ×4 (07:42→21:52)
[2019-11-22] MEDS: SPIRONOLACTONE 25 MG TAB PO SCH ×2 (07:42→21:52)
[2019-11-22] MEDS: PREGABALIN 75 MG CAP PO SCH ×2 (07:43→21:51)
[2019-11-22] MEDS: FOLIC ACID 1 MG TAB PO SCH (07:43)
[2019-11-22] MEDS: THIAMINE 100 MG TAB PO SCH (07:43)
[2019-11-22] MEDS: LACTULOSE 20 GM/30 ML CUP PO SCH ×4 (07:43→21:52)
[2019-11-22] MEDS: CALCIUM CARBONATE 500 MG CHEWABLE PO PRN ×2 (08:57→21:56)
[2019-11-22] MEDS ORDERED: FUROSEMIDE 20 MG TAB PO SCH (09:00)
[2019-11-22] MEDS ORDERED: PANTOPRAZOLE 40 MG/10 ML VIAL IV SCH (09:00)
--- NOTE | 2019-11-22 09:17 | CDI ---
Documentation Clarification Form Date: 11/22/2019 08:56:26 AM From: Macy Phipps RN, CCDS Admit Date: 11/21/2019 09:42:00 AM Patient Name: Christian Gayle Visit Number: [id number] Discharge Date: ATTENTION: The Clinical Documentation Specialists (CDI) and [facility] Coding Staff appreciate your assistance in clarifying documentation. Please respond to the clarification below the line at the bottom and electronically sign. The CDI & [facility] Coding staff will review the response and follow-up if needed. Please note: Queries are made part of the Legal Health Record. If you have any questions, please contact the author of this message via ITS. Dr. Janes Blackman 11/21/19 ER clinical impression has documented Rhabdomyolysis and is not continued in the H&P on 11/21, further clarification from the attending is requested. History/Risk Factors: Liver Disease, Cirrhosis Clinical indicators: 49-year-old male who present to ED on 12/01, with reports of generalized weakness, no solids food intake in the last 2 days. Limited liquid intake over the past 3 days per ER evaluation. 11/21 Vital signs at 07:09: 141/84 80 18Treatment: Labs 11/21 04:00 Creatine Kinase 3950, (12:00) 4453 (20:00) 7878, WBC 4.4, EKG 11/21: normal sinus rhythm 70 Chest x-ray 11/21: Mild bibasilar infiltrates most likely subsegmental atelectasis Clinical significance of diagnostic testing and treatment CANNOT be assumed or coded without physician documentation of significance if any. Please clarify what abnormal laboratory signifies: Rhabdomylosis Disease process, please specify Infectious process, please specify Unable to determine Other, please specify (Last Revision: July 2017) See my progress note from 11/23/2019.-No change in documentation required MTDD
--- NOTE | 2019-11-22 09:46 | P.CONS ---
History of Present Illness - Reason for Consult Consult date: 11/22/19 Wound care - History of Present Illness This is a 49-year-old male who is known to the wound care center with ulcerations to the right Planter great toe and left plantar foot. Patient follows with Dr. Vargas on the wound care center. Collagen silver has been placed on both ulcerations. A total contact cast in place on the left lower extremity. Ulcerations are related to pressure injury. Patient's past medical history includes alcohol cirrhosis he has been abstinent for 2 years. Patient has not smoked in 2 years. Been tolerating the total contact cast. Review of Systems Review Of Systems: Constitutional: No fever, no chills, no night sweats. No weight change. No weakness, fatigue or lethargy. No daytime sleepiness. Integumentary:reports wounds, no lesions. No rash or pruritus. No unusual bruising. No change in hair or nails. Past Medical History Past Medical History: GERD/Reflux, Liver Disease, Pneumonia, Skin Disorder Additional Past Medical History / Comment(s): Past ETOH abuse-has not drank since 2016, ascities with numerous paracenteisi, AMS/high amylase/vented, pancr eatitis, chronic anemia, hiatal hernia, neuropathy bilateral legs/feet and has sores bilateral feet with L foot casted, chronic back pain. History of Any Multi-Drug Resistant Organisms: None Reported Past Surgical History: Adenoidectomy, Back Surgery, Hernia Repair, Tonsillectomy Additional Past Surgical History / Comment(s): Open heart surgery to remove glass from heart (fell into glass on a door), low back surgery, R inguinal hernia repair, EGD, I&D L foot wound Past Anesthesia/Blood Transfusion Reactions: No Reported Reaction Smoking Status: Former smoker - Past Family History Father History Unknown: Yes Family Medical History: Dementia Additional Family Medical History / Comment(s): Father is living. Mother Family Medical History: Diabetes Mellitus Additional Family Medical History / Comment(s): Mother is . Medications and Allergies Home Medications Medication Instructions Recorded Confirmed Type Thiamine [Vitamin B-1] 100 mg PO DAILY #30 tab 11/06/16 11/21/19 Rx Folic Acid 1 mg PO DAILY 05/20/18 11/21/19 History Lactulose [Constulose] 20 gm PO AC-TID 05/20/18 11/21/19 History Modafinil [Provigil] 200 mg PO BID 05/20/18 11/21/19 History Pregabalin [Lyrica] 200 mg PO TID 06/21/19 11/21/19 History Buprenorphine HCl [Subutex] 8 mg SL ACHS 11/21/19 11/21/19 History Cephalexin [Keflex] 500 mg PO Q6H 11/21/19 11/21/19 History Furosemide [Lasix] 20 mg PO DAILY 11/21/19 11/21/19 History Nortriptyline [Pamelor] 50 mg PO HS 11/21/19 11/21/19 History Omeprazole [PriLOSEC] 40 mg PO DAILY 11/21/19 11/21/19 History Rifaximin [Xifaxan] 550 mg PO TID 11/21/19 11/21/19 History Spironolactone [Aldactone] 50 mg PO BID 11/21/19 11/21/19 History Allergies Allergy/AdvReac Type Severity Reaction Status Date / Time No Known Allergies Allergy Verified 11/21/19 10:18 Physical Exam Vitals: Vital Signs Temp Pulse Pulse Resp BP BP Pulse Ox 11/22/19 05:28 97.4 F L 71 16 135/78 98 11/21/19 20:55 97.4 F L 77 18 127/78 98 11/21/19 14:45 97.3 F L 84 14 126/77 95 11/21/19 13:30 70 18 110/63 96 11/21/19 13:00 72 22 121/72 96 11/21/19 12:30 65 15 131/74 98 11/21/19 12:00 73 15 139/81 98 11/21/19 11:30 68 24 123/73 97 11/21/19 11:00 68 22 123/70 96 11/21/19 10:30 70 23 131/80 97 11/21/19 10:00 79 26 H 134/80 95 11/21/19 09:51 75 19 134/80 95 Intake and Output 11/21/19 11/22/19 11/22/19 22:59 06:59 14:59 Output Total 1000 600 Balance -1000 -600 Output: Urine 1000 600 Physical exam: General Appearance: Alert, cooperative, no distress, appears stated age. Skin: Left lower extremity total contact cast in place. Right plantar great toe ulceration measures approximate 1 x 0.9 x 0.1 cm. The ulceration is relatively unchanged from previous appointments. Wound is Limited to skin breakdown there is no tunneling or undermining. There is a small amount of serous drainage the wound margin is flat and intact. There is granulation seen within the wound bed. With adherent Slough. all other Skin color, texture, tugor normal, no rashes or lesions. Neurologic: Alert oriented x3 Results CBC & Chem 7: 11/21/19 07:09 11/21/19 07:09 Labs: Abnormal Lab Results - Last 24 Hours (Table) 11/21/19 11/21/19 11/21/19 Range/Units 09:20 14:10 21:05 POC Glucose (mg/dL) (75-99) mg/dL Creatine Kinase 4453 H* 7878 H* (55-170) U/L Urine Protein 1+ H (Negative) Urine Ketones 4+ H (Negative) Urine Blood Large H (Negative) 11/22/19 Range/Units 07:08 POC Glucose (mg/dL) 115 H (75-99) mg/dL Creatine Kinase (55-170) U/L Urine Protein (Negative) Urine Ketones (Negative) Urine Blood (Negative) Assessment and Plan (1) Pressure injury of right foot, stage 2 Current Visit: Yes Status: Acute Code(s): L89.892 - PRESSURE ULCER OF OTHER SITE, STAGE 2 SNOMED Code(s): 383349824 (2) Pressure injury of left foot, stage 2 Current Visit: Yes Status: Acute Code(s): L89.892 - PRESSURE ULCER OF OTHER SITE, STAGE 2 SNOMED Code(s): 663653231 Plan: Apply collagen silver, saline moistened gauze, dry gauze, rolled gauze secured paper tape. Change Thursday, Thursday and Thursday. Total contact cast will be changed tomorrow collagen silver placed with foam for protection. Patient continue outpatient wound care visits. Next Visit will be Thursday11/30/2019 @ 1:45. Thank you for the consultation. Any questions please contact the wound care center DNP note has been reviewed and discussed with Dr. Vargas and the impression and plan of care has been directed as dictated.
[2019-11-22] MEDS ORDERED: ONDANSETRON 4 MG/2 ML VIAL IVP PRN (10:31)
[2019-11-22 11:03] LABS: Basophils % (A) 0 %; Eosinophils # (A) 0.1 k/uL (0-0.7); Eosinophils % (A) 1 %; HCT 45.1 % (39.0-53.0); HGB 13.9 gm/dL (13.0-17.5); Hypochromasia Slight; Lymphocytes # (A) 0.7 k/uL (1.0-4.8); Lymphocytes % (A) 10 %; MCH 26.8 pg (25.0-35.0); MCHC 30.7 g/dL (31.0-37.0); MCV 87.2 fL (80.0-100.0); Mean Platelet Volume 8.1; Monocytes # (A) 0.3 k/uL (0-1.0); Monocytes % (A) 4 %; Neutrophils % (A) 84 %; Platelet Count 286 k/uL (150-450); RBC 5.18 m/uL (4.30-5.90); RDW 15.7 % (11.5-15.5); WBC 7.2 k/uL (3.8-10.6)
[2019-11-22 11:11] LABS: ALT 71 U/L (4-49); AST 393 U/L (17-59); African American GFR (CKD) >90 (>60 ml/min/1.73 sqM); Albumin 4.2 g/dL (3.5-5.0); Alkaline Phosphatase 148 U/L (38-126); Anion Gap 18 mmol/L; Blood Urea Nitrogen 9 mg/dL (9-20); Calcium 9.7 mg/dL (8.4-10.2); Carbon Dioxide 15 mmol/L (22-30); Chloride 102 mmol/L (98-107); Glucose 140 mg/dL (74-99); Non-African American GFR(CKD) >90 (>60 ml/min/1.73 sqM); Potassium 4.5 mmol/L (3.5-5.1); Sodium 135 mmol/L (137-145); Total Bilirubin 0.5 mg/dL (0.2-1.3); Total Protein 7.5 g/dL (6.3-8.2)
[2019-11-22] MEDS: MODAFINIL 200 MG TAB PO SCH ×2 (11:23→16:41)
[2019-11-22 12:26] LABS: Glucose,Whole Blood 124 mg/dL (75-99)
[2019-11-22 13:56] VITALS: BMI 30.8
[2019-11-22] MEDS ORDERED: PROCHLORPERAZINE SUPPOSITORY 25 MG SUPP RECTAL PRN (15:05)
[2019-11-22] MEDS ORDERED: ONDANSETRON 4 MG/2 ML VIAL IM STA (15:06)
[2019-11-22] MEDS: PANTOPRAZOLE 40 MG TABLET PO SCH (17:00)
[2019-11-22 17:13] LABS: Glucose,Whole Blood 130 mg/dL (75-99)
[2019-11-22] MEDS: ONDANSETRON 4 MG/2 ML VIAL IVP SCH ×2 (18:46→23:23)
--- NOTE | 2019-11-22 19:02 | P.PN ---
Progress Note - Text Progress Note Date: 11/22/19 Chief Complaint: Lethargic History of presenting complaint: This is a pleasant 49-year-old patient of Dr. ortiz. Chronic stable medical conditions include alcoholic cirrhosis, portal hypertension, hyperlipidemia, peripheral neuropathy. Patient presents after feeling lethargic for 3-4 days - sleepy. Denies any fever and chills. Decreased appetite. Patient has a wound on the left foot be followed with ,The wound care center. His been there for for about a month started as a callus. Also got a callus on the right toe. Denies any injury from any sorts. Admitted with-dehydration, alcoholic encephalopathy, acute rhabdomyolysis. Started on IV fluids lactulose. Today-patient is more awake. Did throw up to 3 times also possible blood. GI was consulted. Review of systems: Was done for constitutional, cardiovascular, GI, pulmonary. relevant finding as above Active Medications Calcium Carbonate/Glycine (Tums) 1,000 mg PO QID PRN PRN Reason: Heartburn Last Admin: 11/22/19 08:57 Dose: 1,000 mg Documented by: Enoxaparin Sodium (Lovenox) 40 mg SQ Q24H [facility] Last Admin: 11/22/19 01:03 Dose: 40 mg Documented by: Folic Acid (Folic Acid) 1 mg PO DAILY [facility] Last Admin: 11/22/19 07:43 Dose: 1 mg Documented by: Cefazolin Sodium 2 gm/ Sodium (Chloride) 50 mls @ 100 mls/hr IVPB Q12HR [facility] Last Admin: 11/22/19 08:04 Dose: 100 mls/hr Documented by: Dextrose/Sodium Chloride (Dextrose 5%-1/2ns Iv Soln) 1,000 mls @ 125 mls/hr IV .Q8H [facility] Last Admin: 11/22/19 18:12 Dose: 125 mls/hr Documented by: Lactulose (Cephulac) 30 gm PO TID [facility] Last Admin: 11/22/19 15:34 Dose: Not Given Documented by: Modafinil (Provigil) 200 mg PO 0900,1730 [facility] Last Admin: 11/22/19 16:41 Dose: Not Given Documented by: Naloxone HCl (Narcan) 0.2 mg IV Q2M PRN PRN Reason: Opioid Reversal Patient's Own ( Buprenorphine Hcl [ Subutex] 8 Mg) 8 mg PO ACHS [facility] Last Admin: 11/22/19 16:18 Dose: Not Given Documented by: Ondansetron HCl (Zofran) 4 mg IVP Q6HR [facility] Last Admin: 11/22/19 18:46 Dose: 4 mg Documented by: Pantoprazole Sodium (Protonix) 40 mg PO AC-BID [facility] Last Admin: 11/22/19 17:00 Dose: 40 mg Documented by: Pregabalin (Lyrica) 150 mg PO BID [facility] Last Admin: 11/22/19 07:43 Dose: 150 mg Documented by: Prochlorperazine Maleate (Compazine) 25 mg RECTAL BID PRN PRN Reason: Nausea And Vomiting Rifaximin (Xifaxan) 550 mg PO TID [facility] Stop: 12/21/19 22:01 Last Admin: 11/22/19 17:43 Dose: Not Given Documented by: Spironolactone (Aldactone) 50 mg PO BID [facility] Last Admin: 11/22/19 07:42 Dose: 50 mg Documented by: Thiamine HCl (Vitamin B-1) 100 mg PO DAILY [facility] Last Admin: 11/22/19 07:43 Dose: 100 mg Documented by: Physical examination: VITAL SIGNS: 97.4, 71, 16, 135/78, 98% on room air GENERAL: laying in bed tired. EYES: Pupils equal. Conjunctiva normal. HEENT: External appearance of nose and ears normal, oral cavity grossly normal. NECK: JVD not raised; masses not palpable. HEART: First and second heart sounds are normal; no edema. LUNGS: Respiratory rate normal; decreased breath sounds. ABDOMEN: Soft, nontender, liver spleen not palpable, possible hepatomegaly. PSYCH: Alert and oriented x3; mood and affect tired appearingl. , More awake today NEUROLOGICAL: Cranial nerves grossly intact; no facial asymmetry, power and sensation grossly intact. DERMATOLOGICAL: Left foot wound, callus on the right big toe LYMPHATICS: No lymph nodes palpable in the axilla and neck INVESTIGATIONS, reviewed in the clinical context: CPK-7878, ammonia 50 potassium 4.5 white count 7.2 hemoglobin 13.9 Previous testing White count 4.4 hemoglobin 12.8 platelets 212 potassium 3.9 creatinine 0.49 CPK-3950, 4453 albumin 4.1 EKG tracing personally reviewed by me-normal sinus rhythm Chest x-ray film personally reviewed by me-possible infiltrates/atelectasis Assessment: - alcoholic encephalopathy. -New onset of vomiting today with possible blood -Acute rhabdomyolysis, multifactorial, worsening -Alcoholic cirrhosis -Portal hypertension -Diabetic peripheral neuropathy -Left foot wound secondary to neuropathy -GERD -Chronic hiatal hernia Plan: Continue with IV fluids. GI was consulted. Care was discussed with the patient. Wound care to continue. Follow labs closely..
[2019-11-22 20:58] LABS: Glucose,Whole Blood 122 mg/dL (75-99)
--- NOTE | 2019-11-22 23:30 | PN ---
PROGRESS NOTE DATE OF SERVICE: 11/22/2019. REASON FOR FOLLOWUP: Right big toe plantar wound with concern for significant cellulitis. INTERVAL HISTORY: The patient is currently afebrile. He seems to continue to be slightly lethargic. The patient currently was unable to provide history. No nausea, no vomiting was reported or any diarrhea. PHYSICAL EXAMINATION: Blood pressure is 132/92 with a pulse of 91, temperature 97.5. He is 97% on room air. General description is a middle-aged male lying in bed in no distress. RESPIRATORY SYSTEM: Unlabored breathing. Clear to auscultation anteriorly. HEART: S1, S2. Regular rate and rhythm. ABDOMEN: Soft. No tenderness. Right big toe is currently dressed up. No drainage on the dressing. LABS: Hemoglobin 13.9, white count 7.2. BUN of 9, creatinine 0.48. DIAGNOSTIC IMPRESSION AND PLAN: Patient with right big toe plantar wound with concern for possible secondary cellulitis. Patient is currently covered with Cefazolin. Local care to continue with Aquacel Silver dressing and continue with supportive care. MMODL / IJN: [id number] /
[2019-11-23] MEDS: CALCIUM CARBONATE 500 MG CHEWABLE PO PRN (05:56)
[2019-11-23] MEDS: ONDANSETRON 4 MG/2 ML VIAL IVP SCH ×3 (05:57→17:06)
--- NOTE | 2019-11-23 06:53 | P.CONS ---
History of Present Illness - Reason for Consult Consult date: 11/22/19 Alcoholic cirrhosis, GI bleed Requesting physician: Janes Blackman - Chief Complaint Weakness, lethargy - History of Present Illness 49-year-old male with medical comorbidities including alcoholic cirrhosis, portal hypertension, hyperlipidemia and peripheral neuropathy who presented to 2 increasing lethargy. The patient reports 3-4 days of increasing somnolence prior to presentation with no associated fevers or chills. He does report that his oral intake had decreased. The patient has a known history of decompensated cirrhosis for which he is on paracentesis in the past. He denies any history of GI bleed. He is on medical therapy for treatment of ascites with Lasix and Aldactone as well as treatment of hepatic encephalopathy with lactulose and Xifaxan and reports compliance with his medications. He denies any signs or symptoms of infection. He denies any blood per rectum or abdominal pain. He does report 2 episodes of black emesis after presenting to the hospital. Prior EGD a few years ago was negative for evidence of varices at that time. [facility] ordragan evaluation on presentation significant for WBC 7.2, hemoglobin 13.9, platelet count 286,000, ammonia 21, total bilirubin 0.7, alkaline phosphatase 137, AST 193 and ALT 39. He states that he has not drank Review of Systems REVIEW OF SYSTEMS: CONSTITUTIONAL: Denies any fevers, chills, weight change but does report significant fatigue. CARDIOVASCULAR: Denies any chest pain, palpitations high or low blood pressures RESPIRATORY: Denies any shortness of breath, hemoptysis or cough. GENITOURINARY: No dysuria or hematuria. MUSCULOSKELETAL: No weakness reported. SKIN: Denies any new rashes or lesions, jaundice or pallor. PSYCHIATRIC: Denies any depression or anxiety, prior history of alcohol abuse. NEUROLOGY: Denies headache, denies any new focal deficits. EARS/NOSE/THROAT: No recent hearing change, congestion, nasal discharge or sore throat. EYES: No pain in eyes, discharge or change in vision. GASTROINTESTINAL: As per HPI. Past Medical History Past Medical History: GERD/Reflux, Liver Disease, Pneumonia, Skin Disorder Additional Past Medical History / Comment(s): Past ETOH abuse-has not drank since 2016, ascities with numerous paracenteisi, AMS/high amylase/vented, pancreatitis, chronic anemia, hiatal hernia, neuropathy bilateral legs/feet and has sores bilateral feet with L foot casted, chronic back pain. History of Any Multi-Drug Resistant Organisms: None Reported Past Surgical History: Adenoidectomy, Back Surgery, Hernia Repair, Tonsillectomy Additional Past Surgical History / Comment(s): Open heart surgery to remove glass from heart (fell into glass on a door), low back surgery, R inguinal hernia repair, EGD, I&D L foot wound Past Anesthesia/Blood Transfusion Reactions: No Reported Reaction Smoking Status: Former smoker - Past Family History Father History Unknown: Yes Family Medical History: Dementia Additional Family Medical History / Comment(s): Father is living. Mother Family Medical History: Diabetes Mellitus Additional Family Medical History / Comment(s): Mother is . Medications and Allergies Home Medications Medication Instructions Recorded Confirmed Type Thiamine [Vitamin B-1] 100 mg PO DAILY #30 tab 11/06/16 11/21/19 Rx Folic Acid 1 mg PO DAILY 05/20/18 11/21/19 History Lactulose [Constulose] 20 gm PO AC-TID 05/20/18 11/21/19 History Modafinil [Provigil] 200 mg PO BID 05/20/18 11/21/19 History Pregabalin [Lyrica] 200 mg PO TID 06/21/19 11/21/19 History Buprenorphine HCl [Subutex] 8 mg SL ACHS 11/21/19 11/21/19 History Cephalexin [Keflex] 500 mg PO Q6H 11/21/19 11/21/19 History Furosemide [Lasix] 20 mg PO DAILY 11/21/19 11/21/19 History Nortriptyline [Pamelor] 50 mg PO HS 11/21/19 11/21/19 History Omeprazole [PriLOSEC] 40 mg PO DAILY 11/21/19 11/21/19 History Rifaximin [Xifaxan] 550 mg PO TID 11/21/19 11/21/19 History Spironolactone [Aldactone] 50 mg PO BID 11/21/19 11/21/19 History Allergies Allergy/AdvReac Type Severity Reaction Status Date / Time No Known Allergies Allergy Verified 11/21/19 10:18 Physical Exam Vitals: Vital Signs Temp Pulse Resp BP Pulse Ox 11/22/19 05:28 97.4 F L 71 16 135/78 98 11/21/19 20:55 97.4 F L 77 18 127/78 98 11/21/19 14:45 97.3 F L 84 14 126/77 95 Intake and Output 11/21/19 11/22/19 11/22/19 22:59 06:59 14:59 Output Total 1000 600 600 Balance -1000 -600 -600 Output: Urine 1000 600 Emesis 600 On physical examination, patient appears comfortable in no apparent distress. HEAD: Normocephalic, atraumatic. EYES: No scleral icterus. No conjunctival injection. MOUTH: No lesions, tongue midline. NECK: Trachea midline, no gross abnormalities. CHEST: Clear to auscultation with no wheezing or rhonchi appreciated. HEART: Regular rate and rhythm. ABDOMEN: Soft, obese. Bowel sounds are positive. No organomegaly. No guarding or rigidity. EXTREMITIES: No pedal edema. SKIN: No rashes, no jaundice. NEUROLOGIC: Alert and oriented x3. No focal deficits. Results CBC & Chem 7: 11/22/19 10:24 11/22/19 10:24 Labs: Abnormal Lab Results - Last 24 Hours (Table) 11/21/19 11/21/19 11/22/19 Range/Units 14:10 21:05 07:08 MCHC (31.0-37.0) g/dL RDW (11.5-15.5) % Lymphocytes # (1.0-4.8) k/uL Sodium (137-145) mmol/L Carbon Dioxide (22-30) mmol/L Creatinine (0.66-1.25) mg/dL Glucose (74-99) mg/dL POC Glucose (mg/dL) 115 H (75-99) mg/dL AST (17-59) U/L ALT (4-49) U/L Alkaline Phosphatase (38-126) U/L Ammonia (<30) umol/L Creatine Kinase 4453 H* 7878 H* (55-170) U/L 11/22/19 11/22/19 11/22/19 Range/Units 10:24 10:24 10:24 MCHC 30.7 L (31.0-37.0) g/dL RDW 15.7 H (11.5-15.5) % Lymphocytes # 0.7 L (1.0-4.8) k/uL Sodium 135 L (137-145) mmol/L Carbon Dioxide 15 L (22-30) mmol/L Creatinine 0.48 L (0.66-1.25) mg/dL Glucose 140 H (74-99) mg/dL POC Glucose (mg/dL) (75-99) mg/dL AST 393 H (17-59) U/L ALT 71 H (4-49) U/L Alkaline Phosphatase 148 H (38-126) U/L Ammonia 50 H (<30) umol/L Creatine Kinase (55-170) U/L 11/22/19 Range/Units 12:22 MCHC (31.0-37.0) g/dL RDW (11.5-15.5) % Lymphocytes # (1.0-4.8) k/uL Sodium (137-145) mmol/L Carbon Dioxide (22-30) mmol/L Creatinine (0.66-1.25) mg/dL Glucose (74-99) mg/dL POC Glucose (mg/dL) 124 H (75-99) mg/dL AST (17-59) U/L ALT (4-49) U/L Alkaline Phosphatase (38-126) U/L Ammonia (<30) umol/L Creatine Kinase (55-170) U/L Microbiology - Last 24 Hours (Table) 11/21/19 07:45 Blood Culture - Preliminary Blood No Growth after 24 hours Chest x-ray: report reviewed (Mild bibasilar infiltrates likely atelectasis on chest x-ray) Assessment and Plan (1) Coffee ground emesis Narrative/Plan: 49-year-old male who presented for weakness and lethargy who subsequently developed multiple episodes of nausea, vomiting and coffee-ground emesis. Known history of decompensated alcoholic cirrhosis with ascites and encephalopathy but denies any prior history of GI bleeds with no evidence of varices on EGD performed a few years ago. Hemoglobin has remained stable. Unclear if symptoms are secondary to viral gastroenteritis, Maria Luz-Yang tear, portal hypertensive gastropathy or other etiology with varices unlikely given the hemodynamic stability and normal hemoglobin. Current Visit: Yes Status: Acute Code(s): K92.0 - HEMATEMESIS SNOMED Code(s): 04347219 (2) Alcoholic cirrhosis of liver with ascites Narrative/Plan: Decompensated alcoholic cirrhosis currently treated with medical therapy for encephalopathy and fluid overload in the outpatient setting. Patient reports abstinence from alcohol. Current Visit: No Status: Chronic Code(s): K70.31 - ALCOHOLIC CIRRHOSIS OF LIVER WITH ASCITES SNOMED Code(s): 412730944 (3) H/O ETOH abuse Current Visit: No Status: Chronic Code(s): Z87.898 - PERSONAL HISTORY OF OTHER SPECIFIED CONDITIONS SNOMED Code(s): 491706357 (4) Portal hypertension Current Visit: No Status: Chronic Code(s): K76.6 - PORTAL HYPERTENSION SNOMED Code(s): 41168593 Plan: Supportive care Clear liquid diet Nothing by mouth after midnight Protonix increased to twice daily Continue Aldactone and Lasix for diuresis Continue Xifaxan and lactulose Continue to monitor hemoglobin and hematocrit and transfuse as needed Thank you for allowing us To participate in the care of the patient we will continue to follow
[2019-11-23 07:24] LABS: Glucose,Whole Blood 91 mg/dL (75-99)
[2019-11-23] MEDS: RIFAXIMIN 550 MG TABLET PO SCH ×3 (07:57→21:29)
[2019-11-23] MEDS: FOLIC ACID 1 MG TAB PO SCH (07:57)
[2019-11-23] MEDS: PREGABALIN 75 MG CAP PO SCH ×2 (07:57→21:29)
[2019-11-23] MEDS: SPIRONOLACTONE 25 MG TAB PO SCH ×2 (07:57→21:29)
[2019-11-23] MEDS: PANTOPRAZOLE 40 MG TABLET PO SCH ×2 (07:57→17:06)
[2019-11-23] MEDS: MODAFINIL 200 MG TAB PO SCH ×2 (07:57→17:06)
[2019-11-23] MEDS: DEXTROSE 5%-0.45% NACL 1,000 ML IV SCH ×2 (07:58→17:08)
[2019-11-23] MEDS: LACTULOSE 20 GM/30 ML CUP PO SCH ×4 (07:58→21:28)
[2019-11-23] MEDS: THIAMINE 100 MG TAB PO SCH (07:58)
[2019-11-23] MEDS: BUPRENORPHINE HCL 8 MG PO SCH ×4 (08:54→21:27)
[2019-11-23] MEDS ORDERED: LIDOCAINE 1% INJ 10MG/ML (20 ML MDV) ONE (11:50)
[2019-11-23] MEDS ORDERED: LACTATED RINGERS 1,000 ML IV ONE (11:50)
[2019-11-23] MEDS ORDERED: PROPOFOL 10 MG/ML 20 ML VIAL IV ONE (11:50)
[2019-11-23] MEDS ORDERED: IV FLUID CONTINUATION 1,000 ML IV ONE (11:50)
--- NOTE | 2019-11-23 12:17 | P.PCN ---
Date of Procedure: 11/23/19 Description of Procedure: BRIEF HISTORY: 49-year-old male with medical comorbidities including alcoholic cirrhosis, portal hypertension, hyperlipidemia and peripheral neuropathy who presented to 2 increasing lethargy. The patient reports 3-4 days of increasing somnolence prior to presentation with no associated fevers or chills. He does report that his oral intake had decreased. The patient has a known history of decompensated cirrhosis for which he is on paracentesis in the past. He denies any history of GI bleed. He is on medical therapy for treatment of ascites with Lasix and Aldactone as well as treatment of hepatic encephalopathy with lactulose and Xifaxan and reports compliance with his medications. He denies any signs or symptoms of infection. He denies any blood per rectum or abdominal pain. He does report 2 episodes of black emesis after presenting to the hospital. Prior EGD a few years ago was negative for evidence of varices at that time. PROCEDURE PERFORMED: Esophagogastroduodenoscopy with biopsy. PREOPERATIVE DIAGNOSIS: Coffee-ground emesis, decompensated cirrhosis. ESTIMATED BLOOD LOSS: Minimal. IV sedation per anesthesia. PROCEDURE: After informed consent was obtained, the patient was brought into the endoscopy unit. IV sedation was administered by Anesthesia under continuous monitoring. Initially the Olympus GIF-190 video endoscope was inserted into the mouth. Esophagus intubated without any difficulty. It was gradually advanced into the stomach and duodenum and carefully examined. The bulb and the second part of the duodenum appeared normal, with biopsies taken. The scope at this time was withdrawn to the stomach, adequately insufflated with air, and upon careful examination, mucosa of the antrum, body, cardia and the fundus appeared grossly normal however there was some linear erythema in the antrum suggestive of g astric antral vascular ectasia, with biopsies of the antrum and body taken. The scope was then withdrawn into the esophagus. The GE junction was located at 36 cm from the incisors, with a 7 cm hiatal hernia noted . The esophagus was significant for 7 cm of LA grade D esophagitis. The patient tolerated the procedure well. IMPRESSION: 1. LA grade D distal esophagitis. 2. Large hiatal hernia. 3. Gastric antral vascular ectasia, biopsies of the antrum and body. 4. Duodenal biopsies. 5. No esophageal varices noted. RECOMMENDATIONS: The findings of this examination were discussed with the patient. Okay for full liquid diet. Advance diet as tolerated. Patient should remain on Protonix 40 mg twice daily. Carafate 3 times a day before meals will be added. Continue antiemetic therapy.
[2019-11-23] MEDS: SUCRALFATE 1 GM TAB PO SCH ×2 (12:51→17:06)
--- NOTE | 2019-11-23 16:25 | P.CON ---
Consult Note - . Consult date: 11/23/19 Assessment/Plan:: This patient is well known to me: We have been taking care of his bilateral plantar ulcers in wound care. He has had notable improvement on the left side. We have been utilizing a total contact cast to preserve some degree of mobility. On examination the ulcer on the plantar right great toe remains covered. The ulcer under the total contact cast on the left has improved dramatically. We changed the total contact cast in wound care today. We will continue to follow him in wound care on discharge.
[2019-11-23 20:40] LABS: Glucose,Whole Blood 113 mg/dL (75-99)
[2019-11-23] MEDS: ENOXAPARIN 40 MG/0.4 ML SYRINGE SQ SCH (21:29)
--- NOTE | 2019-11-23 22:58 | PN ---
PROGRESS NOTE DATE OF SERVICE: 09/22/2020. REASON FOR FOLLOWUP: Right big toe wound and a question of cellulitis. INTERVAL HISTORY: The patient is currently afebrile. The patient is breathing comfortably. He is more awake and alert. He denies having any chest pain or shortness of breath or cough or pain to the right big toe. PHYSICAL EXAMINATION: Blood pressure is 116/65 with a pulse of 78, temperature 97.5. He is 91% on room air. General description is a middle-aged male lying in bed in no distress. RESPIRATORY SYSTEM: Unlabored breathing. Clear to auscultation anteriorly. HEART: S1, S2. Regular rate and rhythm. ABDOMEN: Soft. No tenderness. Right big toe wound is currently dressed up. No obvious drainage on the dressing. LABS: No new labs have been obtained today. DIAGNOSTIC IMPRESSION AND PLAN: Patient with a right big toe wound on the plantar aspect, likely pressure ulcer, with secondary cellulitis. Patient is currently covered with Cefazolin. Local care to continue with Aquacel Silver dressing and keep the area off pressure. Continue with supportive care. MMODL / IJN: [id number] /
--- NOTE | 2019-11-23 23:45 | P.PN ---
Progress Note - Text Progress Note Date: 11/23/19 Chief Complaint: Lethargic History of presenting complaint: This is a pleasant 49-year-old patient of Dr. ortiz. Chronic stable medical conditions include alcoholic cirrhosis, portal hypertension, hyperlipidemia, peripheral neuropathy. Patient presents after feeling lethargic for 3-4 days - sleepy. Denies any fever and chills. Decreased appetite. Patient has a wound on the left foot be followed with ,The wound care center. His been there for for about a month started as a callus. Also got a callus on the right toe. Denies any injury from any sorts. Admitted with-dehydration, alcoholic encephalopathy, acute rhabdomyolysis. Started on IV fluids . lactulose. Mentation improved with lactulose. Today-family the bedside today. Due to go down to EGD this afternoon. No other new issues. Review of systems: Was done for constitutional, cardiovascular, GI, pulmonary. relevant finding as above Active Medications Calcium Carbonate/Glycine (Tums) 1,000 mg PO QID PRN PRN Reason: Heartburn Last Admin: 11/23/19 05:56 Dose: 1,000 mg Documented by: Enoxaparin Sodium (Lovenox) 40 mg SQ Q24H [facility] Last Admin: 11/23/19 21:29 Dose: 40 mg Documented by: Folic Acid (Folic Acid) 1 mg PO DAILY [facility] Last Admin: 11/23/19 07:57 Dose: 1 mg Documented by: Cefazolin Sodium 2 gm/ Sodium (Chloride) 50 mls @ 100 mls/hr IVPB Q12HR [facility] Last Admin: 11/23/19 21:28 Dose: 100 mls/hr Documented by: Dextrose/Sodium Chloride (Dextrose 5%-1/2ns Iv Soln) 1,000 mls @ 125 mls/hr IV .Q8H [facility] Last Admin: 11/23/19 17:08 Dose: 125 mls/hr Documented by: Lactulose (Cephulac) 30 gm PO TID [facility] Last Admin: 11/23/19 21:28 Dose: Not Given Documented by: Modafinil (Provigil) 200 mg PO 0900,1730 [facility] Last Admin: 11/23/19 17:06 Dose: 200 mg Documented by: Naloxone HCl (Narcan) 0.2 mg IV Q2M PRN PRN Reason: Opioid Reversal Patient's Own ( Buprenorphine Hcl [ Subutex] 8 Mg) 8 mg PO ACHS [facility] Last Admin: 11/23/19 21:27 Dose: Not Given Documented by: Ondansetron HCl (Zofran) 4 mg IVP Q6HR [facility] Last Admin: 11/23/19 17:06 Dose: 4 mg Documented by: Pantoprazole Sodium (Protonix) 40 mg PO AC-BID [facility] Last Admin: 11/23/19 17:06 Dose: 40 mg Documented by: Pregabalin (Lyrica) 150 mg PO BID [facility] Last Admin: 11/23/19 21:29 Dose: 150 mg Documented by: Prochlorperazine Maleate (Compazine) 25 mg RECTAL BID PRN PRN Reason: Nausea And Vomiting Rifaximin (Xifaxan) 550 mg PO TID [facility] Stop: 12/21/19 22:01 Last Admin: 11/23/19 21:29 Dose: 550 mg Documented by: Spironolactone (Aldactone) 50 mg PO BID [facility] Last Admin: 11/23/19 21:29 Dose: 50 mg Documented by: Sucralfate (Carafate) 1 gm PO AC-TID [facility] Last Admin: 11/23/19 17:06 Dose: 1 gm Documented by: Thiamine HCl (Vitamin B-1) 100 mg PO DAILY [facility] Last Admin: 11/23/19 07:58 Dose: 100 mg Documented by: Physical examination: VITAL SIGNS: 98.1-96-16-133/97, 97% on room air GENERAL: laying in bed awake EYES: Pupils equal. Conjunctiva normal. HEENT: External appearance of nose and ears normal, oral cavity grossly normal. NECK: JVD not raised; masses not palpable. HEART: First and second heart sounds are normal; no edema. LUNGS: Respiratory rate normal; decreased breath sounds. ABDOMEN: Soft, nontender, liver spleen not palpable, possible hepatomegaly. PSYCH: Alert and oriented x3; mood and affect tired appearingl. , More awake today DERMATOLOGICAL: Left foot toes plantar wound, callus on the right big toe INVESTIGATIONS, reviewed in clinical context: [id number], ammonia 50 potassium 4.5 white count 7.2 hemoglobin 13.9 EGD--LA grade D distal esophagitis, large hiatal hernia, gastric antral vascular ectasia. No esophageal varices Previous testing White count 4.4 hemoglobin 12.8 platelets 212 potassium 3.9 creatinine 0.49 CPK-[id number], 4453 albumin 4.1 EKG tracing personally reviewed by me-normal sinus rhythm Chest x-ray film personally reviewed by me-possible infiltrates/atelectasis Assessment: - alcoholic encephalopathy. -New onset of vomiting today with possible blood -Acute rhabdomyolysis, multifactorial, -Alcoholic cirrhosis -Portal hypertension -Diabetic peripheral neuropathy -Left foot wound secondary to neuropathy -GERD -Large hiatal hernia -LA grade D distal esophagitis, large hiatal hernia, gastric antral vascular ectasia Plan: Patient later this afternoon underwent EGD. Results were noted. Repeat labs in the morning. Diet to be advanced as per GI.
[2019-11-24] MEDS: ONDANSETRON 4 MG/2 ML VIAL IVP SCH ×5 (00:10→23:25)
[2019-11-24] MEDS: DEXTROSE 5%-0.45% NACL 1,000 ML IV SCH ×3 (00:10→17:25)
[2019-11-24 07:04] LABS: Glucose,Whole Blood 78 mg/dL (75-99)
[2019-11-24] MEDS: FOLIC ACID 1 MG TAB PO SCH (07:55)
[2019-11-24] MEDS: SUCRALFATE 1 GM TAB PO SCH ×3 (07:55→17:25)
[2019-11-24] MEDS: MODAFINIL 200 MG TAB PO SCH ×2 (07:56→17:25)
[2019-11-24] MEDS: SPIRONOLACTONE 25 MG TAB PO SCH ×2 (07:56→22:05)
[2019-11-24] MEDS: THIAMINE 100 MG TAB PO SCH (07:56)
[2019-11-24] MEDS: RIFAXIMIN 550 MG TABLET PO SCH ×3 (07:56→22:05)
[2019-11-24] MEDS: BUPRENORPHINE HCL 8 MG PO SCH ×4 (07:56→22:51)
[2019-11-24] MEDS: PANTOPRAZOLE 40 MG TABLET PO SCH ×2 (07:56→17:25)
[2019-11-24] MEDS: LACTULOSE 20 GM/30 ML CUP PO SCH ×3 (08:42→22:06)
[2019-11-24] MEDS: PREGABALIN 75 MG CAP PO SCH ×2 (08:58→22:05)
--- NOTE | 2019-11-24 16:04 | P.PN ---
Subjective Progress Note Date: 11/24/19 Principal diagnosis: This is a pleasant 49-year-old patient of Dr. ortiz. Chronic stable medical conditions include alcoholic cirrhosis, portal hypertension, hyperlipidemia, per ipheral neuropathy. Patient presents after feeling lethargic for 3-4 days - sleepy. Denies any fever and chills. Decreased appetite. Patient has a wound on the left foot be followed with ,The wound care center. His been there for for about a month started as a callus. Also got a callus on the right toe. Denies any injury from any sorts. Admitted with-dehydration, alcoholic encephalopathy, acute rhabdomyolysis. Started on IV fluids . lactulose. Mentation improved with lactulose. Today-family the bedside today. Due to go down to EGD this afternoon. No other new issues. 11/24/2019 Patient is seen and evaluated in follow-up today alert and oriented 3 and being maintained on normal saline at 125 ML per hour. Will decrease flow rate as patient is now eating and drinking with no difficulties. Patient underwent EGD yesterday showing LA grade D distal esophagitis, large hiatal hernia, gastric antral vascular ectasia, and no esophageal varices noted. Biopsies were obt ained. Patient to continue on Protonix twice daily along with Carafate and currently receiving Zofran. Patient remains on IV antibiotics in the form of cefazolin for right big toe wound with possible cellulitis. Infectious disease is following. No reports of nausea or vomiting and patient is tolerating full liquid diet. No reports of chest pain or palpitations. Patient is afebrile. Will continue to monitor closely. Objective - Vital Signs Vital signs: Vital Signs Temp 98.1 F 11/24/19 10:50 Pulse 82 11/24/19 10:50 Resp 16 11/24/19 10:50 BP 124/70 11/24/19 10:50 Pulse Ox 95 11/24/19 10:50 Intake & Output 11/23/19 11/24/19 11/24/19 18:59 06:59 18:59 Intake Total 1368 1000 Output Total 850 250 Balance 1368 -850 750 Intake: IV 1250 1000 Dextrose 5%-0.45% NaCl 1, 1000 1000 000 ml @ 125 mls/hr IV . Q8H [facility] Rx#:[id number] ceFAZolin 2 gm In Sodium 50 Chloride 0.9% 50 ml @ 100 mls/hr IVPB Q12HR [facility] Rx #:[id number] Oral 118 Output: Urine 850 250 Other: # Voids 3 1 # Bowel Movements 0 - Exam VITAL SIGNS: Temp is 98.1F, pulse is 82, respirations are 16, blood pressure is 124/70, oxygen saturation is 95 percent on room air. GENERAL: Sitting up in bed, awake, alert and oriented 3, well-nourished, well- developed EYES: Pupils equal. Conjunctiva normal. HEENT: External appearance of nose and ears normal, oral cavity grossly normal. NECK: JVD not raised; masses not palpable. HEART: S1, S2 are muffled LUNGS: Decreased breath sounds at the bases with no rhonchi or wheezing noted. ABDOMEN: Soft, nontender, mildly distended, nontender possible hepatomegaly. PSYCH: Alert and oriented x3; mood and affect appropriate and responding appropriately to commands and questions. DERMATOLOGICAL: Left foot toes plantar wound, callus on the right big toe, large specialty boot noted of the left foot - Labs CBC & Chem 7: 11/22/19 10:24 11/22/19 10:24 Labs: Abnormal Lab Results - Last 24 Hours (Table) 11/23/19 Range/Units 20:36 POC Glucose (mg/dL) 113 H (75-99) mg/dL Microbiology - Last 24 Hours (Table) 11/21/19 07:45 Blood Culture - Preliminary Blood No Growth after 72 hours Assessment and Plan Assessment: - alcoholic encephalopathy. -New onset of vomiting today with possible blood -Acute rhabdomyolysis, multifactorial, -Alcoholic cirrhosis -Portal hypertension -Diabetic peripheral neuropathy -Left foot wound secondary to neuropathy -GERD -Large hiatal hernia -LA grade D distal esophagitis, large hiatal hernia, gastric antral vascular ectasia Recommendations and discussion: Recommend to continue current medications, management, and symptomatic treatment. GI is following. Patient's mentation has improved. Will repeat a.m. labs. Patient's diet has been tolerated and is being advanced slowly per GI. Further recommendations to follow. Will continue to monitor closely. Possible discharge in 24 hours.
[2019-11-24] MEDS: ENOXAPARIN 40 MG/0.4 ML SYRINGE SQ SCH (23:25)
--- NOTE | 2019-11-24 23:59 | PN ---
PROGRESS NOTE DATE OF SERVICE: 11/24/2019 REASON FOR FOLLOWUP: Right big toe wound and cellulitis. INTERVAL HISTORY: The patient is currently afebrile. Patient has been breathing comfortably. He is more awake and alert today. No chest pain. No cough. No nausea or vomiting. No abdominal pain or diarrhea. EXAMINATION: Blood pressure 107/76 with a pulse of 77, temperature 98.1. He is 96% on room air. General description is a middle-aged male lying in bed in no distress. Respiratory system: Unlabored breathing. Clear to auscultation anteriorly. Heart S1, S2. Regular rate and rhythm. Abdomen soft. No tenderness. Right big toe is currently dressed up. No obvious drainage on the dressing. DIAGNOSTIC IMPRESSION AND PLAN: Patient with right big toe pressure ulcer with mild cellulitis. The patient is currently covered with cefazolin. Local care to continue with Aquacel Silver dressing to finish therapy with oral antibiotics. Continue supportive care. MMODL / IJN: [id number] / [email or web address]
[2019-11-25] MEDS: ONDANSETRON 4 MG/2 ML VIAL IVP SCH ×2 (05:18→12:36)
[2019-11-25 07:06] VITALS: RESP 16
--- NOTE | 2019-11-25 07:23 | P.PN ---
Subjective Progress Note Date: 11/25/19 Principal diagnosis: Esophagitis, nausea and vomiting, decompensated alcohol cirrhosis Patient is seen lying in bed reporting is tolerating diet. Abdominal pain improved. No further nausea or vomiting. Objective - Vital Signs Vital signs: Vital Signs Temp 98.1 F 11/24/19 10:50 Pulse 82 11/24/19 10:50 Resp 16 11/24/19 10:50 BP 124/70 11/24/19 10:50 Pulse Ox 95 11/24/19 10:50 Intake & Output 11/23/19 11/24/19 11/24/19 18:59 06:59 18:59 Intake Total 1368 1000 Output Total 850 250 Balance 1368 -850 750 Intake: IV 1250 1000 Dextrose 5%-0.45% NaCl 1, 1000 1000 000 ml @ 125 mls/hr IV . Q8H [facility] Rx#:[id number] ceFAZolin 2 gm In Sodium 50 Chloride 0.9% 50 ml @ 100 mls/hr IVPB Q12HR [facility] Rx #:[id number] Oral 118 Output: Urine 850 250 Other: # Voids 3 1 # Bowel Movements 0 - Exam On physical examination, patient appears comfortable in no apparent distress. HEAD: Normocephalic, atraumatic. EYES: No scleral icterus. No conjunctival injection. MOUTH: No lesions, tongue midline. NECK: Trachea midline, no gross abnormalities. ABDOMEN: Soft, obese. Bowel sounds are positive. No organomegaly. No guarding or rigidity. EXTREMITIES: No pedal edema. SKIN: No rashes, no jaundice. NEUROLOGIC: Alert and oriented x3. No focal deficits. - Labs CBC & Chem 7: 11/22/19 10:24 11/22/19 10:24 Labs: Abnormal Lab Results - Last 24 Hours (Table) 11/23/19 Range/Units 20:36 POC Glucose (mg/dL) 113 H (75-99) mg/dL Microbiology - Last 24 Hours (Table) 11/21/19 07:45 Blood Culture - Preliminary Blood No Growth after 72 hours Assessment and Plan (1) Coffee ground emesis Narrative/Plan: 49-year-old male who presented for weakness and lethargy who subsequently developed multiple episodes of nausea, vomiting and coffee-ground emesis. Known history of decompensated alcoholic cirrhosis with ascites and encephalopathy but denies any prior history of GI bleeds with no evidence of varices on EGD performed a few years ago. Hemoglobin has remained stable. Likely multifa ctorial from esophagitis, antral irritation seen on EGD, with hiatal hernia also noted. Current Visit: Yes Status: Acute Code(s): K92.0 - HEMATEMESIS SNOMED Code(s): 12947404 (2) Alcoholic cirrhosis of liver with ascites Narrative/Plan: Decompensated alcoholic cirrhosis currently treated with medical therapy for encephalopathy and fluid overload in the outpatient setting. Patient reports abstinence from alcohol. Current Visit: No Status: Chronic Code(s): K70.31 - ALCOHOLIC CIRRHOSIS OF LIVER WITH ASCITES SNOMED Code(s): 196655717 (3) H/O ETOH abuse Current Visit: No Status: Chronic Code(s): Z87.898 - PERSONAL HISTORY OF OTHER SPECIFIED CONDITIONS SNOMED Code(s): 119716450 (4) Portal hypertension Current Visit: No Status: Chronic Code(s): K76.6 - PORTAL HYPERTENSION SNOMED Code(s): 77015381 Plan: Supportive care Okay for soft diet Continue Carafate Protonix increased to twice daily Continue Aldactone and Lasix for diuresis Continue Xifaxan and lactulose Continue to monitor hemoglobin and hematocrit and transfuse as needed Thank you for allowing us To participate in the care of the patient, chyna for discharge from gastroenterology, will stand by
[2019-11-25] MEDS: RIFAXIMIN 550 MG TABLET PO SCH ×2 (07:33→15:44)
[2019-11-25] MEDS: FOLIC ACID 1 MG TAB PO SCH (07:34)
[2019-11-25] MEDS: PANTOPRAZOLE 40 MG TABLET PO SCH (07:34)
[2019-11-25] MEDS: SPIRONOLACTONE 25 MG TAB PO SCH (07:34)
[2019-11-25] MEDS: SUCRALFATE 1 GM TAB PO SCH ×2 (07:34→12:36)
[2019-11-25] MEDS: THIAMINE 100 MG TAB PO SCH (07:34)
[2019-11-25] MEDS: BUPRENORPHINE HCL 8 MG PO SCH ×2 (07:34→12:36)
[2019-11-25] MEDS: MODAFINIL 200 MG TAB PO SCH (07:34)
[2019-11-25] MEDS: PREGABALIN 75 MG CAP PO SCH (07:34)
[2019-11-25] MEDS: LACTULOSE 20 GM/30 ML CUP PO SCH ×2 (09:59→15:43)
[2019-11-25] MEDS: DEXTROSE 5%-0.45% NACL 1,000 ML IV SCH (12:37)
[2019-11-25 14:57] VITALS: BP 124/77; PULSE 72; TEMP 98
--- NOTE | 2019-11-25 21:51 | P.PN ---
Progress Note - Text Progress Note Date: 11/25/19 DATE OF SERVICE: 11/24/2019 REASON FOR FOLLOWUP: Right big toe wound and cellulitis. INTERVAL HISTORY: The patient remains to be afebrile. Patient is breathing comfortably. The patient Denies any chest pain shortness of breath or cough no nausea no vomiting Denies any pain to the right big toe EXAMINATION: Blood pressure 120/70 with a pulse of 78, temperature 98.1. He is 96% on room air. General description is a middle-aged male lying in bed in no distress. Respiratory system: Unlabored breathing. Clear to auscultation anteriorly. Heart S1, S2. Regular rate and rhythm. Abdomen soft. No tenderness. Right big toe is currently dressed up. No obvious drainage on the dressing. LABS: No new labs were done DIAGNOSTIC IMPRESSION AND PLAN: Patient with right big toe pressure ulcer with mild cellulitis. The patient Local care to continue with Aquacel Silver dressing to finish therapy with oral Keflex 500 mg 3 times a day for 7 days. Continue supportive care.
--- NOTE | 2019-11-28 08:41 | P.DS ---
Providers Date of admission: 11/21/19 09:42 Expected date of discharge: 11/25/19 Attending physician: Janes Blackman Consults: 11/21/19 09:43 Consult Physician Urgent Consulting Provider: Talon Hernandez Consult Reason/Comments: Foot ulcers Do you want consulting provider notified?: Yes 11/21/19 23:17 Consult Physician Routine Consulting Provider: Shai Vargas Consult Reason/Comments: Left foot wound Do you want consulting provider notified?: Yes Primary care physician: Alexander Randhawa Hospital Course: Final diagnosis - alcoholic encephalopathy. -New onset of vomiting today with possible blood -Acute rhabdomyolysis, multifactorial -Alcoholic cirrhosis -Portal hypertension -Diabetic peripheral neuropathy -Left foot wound secondary to neuropathy -GERD -Large hiatal hernia -LA grade D distal esophagitis, large hiatal hernia, gastric antral vascular ectasia Discharge disposition Patient is being discharged in a stable condition with guarded prognosis to home and will follow-up with the Dr. Randhawa in the outpatient setting upon discharge. Patient will continue on oral antibiotics in the form of Keflex 500 mg 4 times daily for the next 10 days along with Protonix twice daily and Carafate before meals at bedtime. Patient will also be following up with GI in the outpatient setting in 1-2 weeks for results. Total time taken is 35 minutes. History of present illness This is a 49-year-old male who was recently admitted with increased lethargy and altered mental status and was being closely monitored. During hospitalization patient underwent an EGD showing LA grade D of the distal esophagitis, large hiatal hernia, gastric antral vascular ectasia, and no esophageal varices noted. Multiple biopsies were obtained. Patient will continue on Protonix twice daily along with Carafate before meals at bedtime upon discharge until follow-up with GI. Patient's mentation and overall condition improved and patient would like to go home today. Patient will need repeat labs in a few days to monitor liver functions as they were elevated. Patient instructed to refrain from any alcohol intake. Patient will also be following up in the outpatient setting with the wound center for his left foot wound along with callus of the right toe. Patient will continue on oral antibiotics in the form of Keflex 4 times daily for the next 10 days. Currently patient's condition is stable and is ready for discharge today. No reports of chest pain, palpitations, or worsening shortness of breath. Patient is afebrile. No reports of nausea or vomiting and patient is tolerating diet. Guarded prognosis. On exam vital signs are stable. Temp is 98.0 F, pulse is 72, respirations are 16, blood pressures 124/77, oxygen saturation is 96 % on room air. Cardio S1, S2 are muffled. Respiratory system shows diminished breath sounds at the bases with no wheezing or rhonchi noted. Abdomen is soft, and nontender. Nervous system shows no focal deficits. Please refer to medication reconciliation sheet for a list of medications. Patient Condition at Discharge: Stable Plan - Discharge Summary Discharge Rx Participant: No New Discharge Prescriptions: New Sucralfate [Carafate] 1 gm PO AC-TID 30 Days #90 tab Pantoprazole [Protonix] 40 mg PO AC-BID 30 Days #60 tablet. Pregabalin [Lyrica] 150 mg PO BID 7 Days #14 cap Continue Thiamine [Vitamin B-1] 100 mg PO DAILY #30 tab Modafinil [Provigil] 200 mg PO BID Folic Acid 1 mg PO DAILY Lactulose [Constulose] 20 gm PO AC-TID Spironolactone [Aldactone] 50 mg PO BID Nortriptyline [Pamelor] 50 mg PO HS Furosemide [Lasix] 20 mg PO DAILY Buprenorphine HCl [Subutex] 8 mg SL ACHS Rifaximin [Xifaxan] 550 mg PO TID Cephalexin [Keflex] 500 mg PO Q6H 10 Days #40 caplet Discontinued Pregabalin [Lyrica] 200 mg PO TID Omeprazole [PriLOSEC] 40 mg PO DAILY Discharge Medication List Thiamine [Vitamin B-1] 100 mg PO DAILY #30 tab 11/06/16 [Rx] Folic Acid 1 mg PO DAILY 05/20/18 [History] Lactulose [Constulose] 20 gm PO AC-TID 05/20/18 [History] Modafinil [Provigil] 200 mg PO BID 05/20/18 [History] Buprenorphine HCl [Subutex] 8 mg SL ACHS 11/21/19 [History] Furosemide [Lasix] 20 mg PO DAILY 11/21/19 [History] Nortriptyline [Pamelor] 50 mg PO HS 11/21/19 [History] Rifaximin [Xifaxan] 550 mg PO TID 11/21/19 [History] Spironolactone [Aldactone] 50 mg PO BID 11/21/19 [History] Cephalexin [Keflex] 500 mg PO Q6H 10 Days #40 caplet 11/25/19 [Rx] Pantoprazole [Protonix] 40 mg PO AC-BID 30 Days #60 tablet. 11/25/19 [Rx] Pregabalin [Lyrica] 150 mg PO BID 7 Days #14 cap 11/25/19 [Rx] Sucralfate [Carafate] 1 gm PO AC-TID 30 Days #90 tab 11/25/19 [Rx] Follow up Appointment(s)/Referral(s): Alexander Randhawa MD [Primary Care Provider] - 11/30/19 3:15 pm [facility] [NON-STAFF] - 1 Week Sonido Weber MD [STAFF PHYSICIAN] - 12/01/19 9:30 am Ambulatory/Diagnostic Orders: ALT [LAB.AMB] Time Frame: 2 Days, Location: None Selected AST [LAB.AMB] Time Frame: 2 Days, Location: None Selected Patient Instructions/Handouts: Gastritis (DC), Hepatic Encephalopathy (DC) Activity/Diet/Wound Care/Special Instructions: SUBUTEX HAS BEEN RETURNED TO PATIENT!!!!!!!!!!!!! Activity Limited until follow-up Primary care provider upon discharge Continue current diet Continue with antibiotics Follow-up with GI Follow-up with wound center Repeat labs in 2-3 days Discharge Disposition: HOME SELF-CARE
--- NOTE | 2019-11-28 11:13 | CDI ---
Documentation Clarification Form Date: 11/28/19 From: Kaylee Valenzuela Phone: If you have a question about this query, please contact Jen Vieyra, House Steward/Stewardess at [phone] between 8am and 5pm. Admit Date: 11/21/19 Discharge Date:11/25/19 Patient Name: Christian Gayle Visit Number: [id number] ATTENTION: The Clinical Documentation Specialists (CDI) and [facility] Coding Staff appreciate your assistance in clarifying documentation. Please respond to the clarification below the line at the bottom and electronically sign. The CDI & [facility] Coding staff will review the response and follow-up if needed. Please note: Queries are made part of the Legal Health Record. If you have any questions, please contact the author of this message via ITS. Dear Dr. Blackman Cellulitis of the right big toe is documented in Dr. Hernandez's consult note and progress notes. Dr. Naranjo documented possible cellulitis in the 11/24 progress note. Patient history/risk factors: Diabetes, peripheral neuropathy, ulcer of right big toe Clinical Indicators: Minimal swelling and redness Radiology: Soft tissues are normal of the right foot. Labs: WBC 4.4 Vital Signs: T. 97.5, P. 80, R. 18, BP 141/84 Treatment: Medication: IV Cefazolin In your professional opinion, can cellulitis be further specified as one of the following? Associated with diabetes Not associated with diabetes Other: Unable to determine Acute right big toe ulcer/cellulitis possibly associated with diabetes, POA MTDD
== END 2019-11-25 16:18 | disposition home or self-care (01) | DRG 57 ==
LOC: EC 06:34 → 5NMEDONC 09:42 → 6NMEDSUR 13:35
PROVIDERS: ADMIT Hospitalist; ATTEND Hospitalist
PROC: 0DB78ZX Excision of Stomach, Pylorus, Via Natural or Artificial Opening Endoscopic, Diagnostic (ICD-10-PCS; principal; 2019-11-23 07:50)
PROC: 0DB68ZX Excision of Stomach, Via Natural or Artificial Opening Endoscopic, Diagnostic (ICD-10-PCS; principal; 2019-11-23 07:50)
PROC: 0DB98ZX Excision of Duodenum, Via Natural or Artificial Opening Endoscopic, Diagnostic (ICD-10-PCS; principal; 2019-11-23 07:50)
DX: G31.2 Degeneration of nervous system due to alcohol (principal); M62.82 Rhabdomyolysis; K76.6 Portal hypertension; K92.0 Hematemesis; K70.31 Alcoholic cirrhosis of liver with ascites; L97.521 Non-pressure chronic ulcer of other part of left foot limited to breakdown of skin; L97.519 Non-pressure chronic ulcer of other part of right foot with unspecified severity; E11.42 Type 2 diabetes mellitus with diabetic polyneuropathy; E11.621 Type 2 diabetes mellitus with foot ulcer; E11.628 Type 2 diabetes mellitus with other skin complications; L03.031 Cellulitis of right toe; E78.5 Hyperlipidemia, unspecified; E86.0 Dehydration; K21.0 Gastro-esophageal reflux disease with esophagitis; K31.819 Angiodysplasia of stomach and duodenum without bleeding; K44.9 Diaphragmatic hernia without obstruction or gangrene; G89.29 Other chronic pain; M54.5 Low back pain; Z79.899 Other long term (current) drug therapy; F10.21 Alcohol dependence, in remission; Z87.891 Personal history of nicotine dependence; Z87.01 Personal history of pneumonia (recurrent)
CPT/HCPCS: 36415; 43239; 71046; 80053; 81001; 82140; 82550; 83605; 83735; 84100; 84439; 84443; 84481; 84484; 85025; 85610; 85730; 87040; 88305; 93005; 96361; 96365; 99285

== ENCOUNTER → 2019-11-30 | Outpatient (CLI) | payer BC ==
[2019-11-30 20:50] LABS: ALT 42 U/L (10-49); AST 31 U/L (14-35); Alkaline Phosphatase 143 U/L (41-126); Creatine Kinase 90 U/L (35-257)
== END | disposition home or self-care (01) ==
LOC: LABWHC1 13:21
PROVIDERS: ATTEND Registered Nurse
DX: R79.89 Other specified abnormal findings of blood chemistry (principal)
CPT/HCPCS: 36415; 82550; 84075; 84450; 84460

== ENCOUNTER 2020-02-14 09:33 | Inpatient (IN) | payer BC, MEDICARE ==
[2020-02-14 10:22] LABS: Basophils % (A) 0 %; Eosinophils # (A) 0.1 k/uL (0-0.7); Eosinophils % (A) 2 %; HCT 40.9 % (39.0-53.0); HGB 12.7 gm/dL (13.0-17.5); Hypochromasia Moderate; Lymphocytes # (A) 0.7 k/uL (1.0-4.8); Lymphocytes % (A) 20 %; MCH 28.6 pg (25.0-35.0); MCHC 31.1 g/dL (31.0-37.0); Mean Platelet Volume 8.7; Monocytes # (A) 0.1 k/uL (0-1.0); Monocytes % (A) 3 %; Neutrophils # (A) 2.6 k/uL (1.3-7.7); Neutrophils % (A) 74 %; Platelet Count 324 k/uL (150-450); RBC 4.45 m/uL (4.30-5.90); RDW 15.5 % (11.5-15.5); WBC 3.4 k/uL (3.8-10.6)
[2020-02-14 10:30] LABS: ALT 22 U/L (4-49); AST 54 U/L (17-59); African American GFR (CKD) >90 (>60 ml/min/1.73 sqM); Albumin 4.4 g/dL (3.5-5.0); Alkaline Phosphatase 161 U/L (38-126); Anion Gap 22 mmol/L; Blood Urea Nitrogen 13 mg/dL (9-20); Calcium 9.4 mg/dL (8.4-10.2); Carbon Dioxide 14 mmol/L (22-30); Chloride 102 mmol/L (98-107); Glucose 117 mg/dL (74-99); Non-African American GFR(CKD) >90 (>60 ml/min/1.73 sqM); Potassium 4.5 mmol/L (3.5-5.1); Sodium 138 mmol/L (137-145); Total Bilirubin 0.4 mg/dL (0.2-1.3); Total Protein 7.8 g/dL (6.3-8.2)
--- NOTE | 2020-02-14 10:32 | XR ---
EXAMINATION TYPE: XR chest 2V DATE OF EXAM: 02/14/2020 COMPARISON: 11/21/2019 HISTORY: Shortness of breath TECHNIQUE: Frontal and lateral views of the chest are obtained. FINDINGS: Scattered senescent parenchymal changes noted. Hyperinflation compatible with COPD. No evidence for infiltrate. No evidence for atelectasis. Heart size is stable. Mediastinal structures are stable and grossly unremarkable. No evidence for hilar prominence. Degenerative changes dorsal spine. IMPRESSION: 1. No evidence for acute pulmonary disease.
[2020-02-14] MEDS ORDERED: SODIUM CHLORIDE 0.9% 1,000 ML IV ONE (10:59)
[2020-02-14] MEDS ORDERED: SODIUM CHLORIDE 0.9% 500 ML 500 ML IV ONE (10:59)
--- NOTE | 2020-02-14 11:16 | ED ---
Recheck HPI <Viktor Bueno - Last Filed: 02/14/20 11:42> - General Source: patient Mode of arrival: wheelchair Limitations: no limitations <Mayra Funes - Last Filed: 02/14/20 11:54> - General Chief Complaint: Recheck/Abnormal Lab/Rx Stated Complaint: loss appetite Time Seen by Provider: 02/14/20 09:44 - History of Present Illness Initial Comments: 49-year-old male with history of cirrhosis of the liver secondary to previous chronic ETOH abuse, pancreatitis presenting for vomiting mild epigastric abdominal pain, nausea x 4 days. Patient states he has not ate or drank in the past 4 days. Patient states he has no appetite and cannot stop vomiting. Patient denies cough, chest pain, shortness of breath, congestion, fevers. Patient states he has had BM. Patient denies current ETOH use. Patient denies abdominal distention. Patient denies additional complaints. Upon arrival patient appears dry. (Mayra Funes) - Related Data Home Medications Medication Instructions Recorded Confirmed Folic Acid 1 mg PO DAILY 05/20/18 11/21/19 Lactulose [Constulose] 20 gm PO AC-TID 05/20/18 11/21/19 Modafinil [Provigil] 200 mg PO BID 05/20/18 11/21/19 Buprenorphine HCl [Subutex] 8 mg SL ACHS 11/21/19 11/21/19 Furosemide [Lasix] 20 mg PO DAILY 11/21/19 11/21/19 Nortriptyline [Pamelor] 50 mg PO HS 11/21/19 11/21/19 Rifaximin [Xifaxan] 550 mg PO TID 11/21/19 11/21/19 Spironolactone [Aldactone] 50 mg PO BID 11/21/19 11/21/19 Previous Rx's Medication Instructions Recorded Thiamine [Vitamin B-1] 100 mg PO DAILY #30 tab 11/06/16 Cephalexin [Keflex] 500 mg PO Q6H 10 Days #40 caplet 11/25/19 Pantoprazole [Protonix] 40 mg PO AC-BID 30 Days #60 11/25/19 tablet. Pregabalin [Lyrica] 150 mg PO BID 7 Days #14 cap 11/25/19 Sucralfate [Carafate] 1 gm PO AC-TID 30 Days #90 tab 11/25/19 Allergies Allergy/AdvReac Type Severity Reaction Status Date / Time No Known Allergies Allergy Verified 02/14/20 09:39 Review of Systems ROS Other: All systems not noted in ROS Statement are negative. <Viktor Bueno - Last Filed: 02/14/20 11:42> ROS Other: All systems not noted in ROS Statement are negative. <Mayra Funes - Last Filed: 02/14/20 11:54> ROS Statement: Those systems with pertinent positive or pertinent negative responses have been documented in the HPI. Past Medical History Past Medical History: GERD/Reflux, Liver Disease, Pneumonia, Skin Disorder Additional Past Medical History / Comment(s): Past ETOH abuse-has not drank since 2016, ascities with numerous paracenteisi, AMS/high amylase/vented, pancreatitis, chronic anemia, hiatal hernia, neuropathy bilateral legs/feet and has sores bilateral feet with L foot casted, chronic back pain. History of Any Multi-Drug Resistant Organisms: None Reported Past Surgical History: Adenoidectomy, Back Surgery, Hernia Repair, Tonsillectomy Additional Past Surgical History / Comment(s): Open heart surgery to remove glass from heart (fell into glass on a door), low back surgery, R inguinal hernia repair, EGD, I&D L foot wound Past Anesthesia/Blood Transfusion Reactions: No Reported Reaction Past Psychological History: No Psychological Hx Reported Smoking Status: Never smoker Past Alcohol Use History: None Reported Past Drug Use History: None Reported, Opiates - Past Family History Father History Unknown: Yes Family Medical History: Dementia Additional Family Medical History / Comment(s): Father is living. Mother Family Medical History: Diabetes Mellitus Additional Family Medical History / Comment(s): Mother is . <Mayra Funes - Last Filed: 02/14/20 11:54> General Exam Limitations: no limitations <Mayra Funes - Last Filed: 02/14/20 11:54> - General Exam Comments Initial Comments: General: The patient is awake and alert Eye: +3 mm pupils are equal, round and reactive to light, extra-ocular movements are intact. No nystagmus. There is normal conjunctiva bilaterally. No signs of icterus. Ears, nose, mouth and throat: There are moist mucous membranes and no oral lesions. Neck: The neck is supple, there is no tenderness or JVD. Cardiovascular: There is a regular rate and rhythm. No murmur, rub or gallop is appreciated. Respiratory: Lungs are clear to auscultation, respirations are non-labored, breath sounds are equal. No wheezes, stridor, rales, or rhonchi. Gastrointestinal: [Soft, non-distended, mild epigastric tenderness to palpation of the abdomen without masses or organomegaly noted. There is no rebound or g uarding prese Musculoskeletal: Normal ROM, no tenderness. Strength 5/5. Sensation intact. Radial pulses equal bilaterally 2+. Neurological: A&O x 3. CN II-XII intact grossly, There are no obvious motor or sensory deficits. Coordination appears grossly intact. Speech is normal. Skin: Skin is warm and dry and no rashes or lesions are noted. No LE edema Psychiatric: Cooperative, appropriate mood & affect, normal judgment. (Mayra Funes) Course <Viktor Bueno - Last Filed: 02/14/20 11:42> Vital Signs 02/14/20 09:36 Temperature 97.4 F L Pulse Rate 65 Respiratory 18 Rate Blood Pressure 116/76 O2 Sat by Pulse 100 Oximetry - Reevaluation(s) Reevaluation #1: 02/14/20 11:42 PA supervision: I personally evaluate this case patient does present with complaints of persistent nausea vomiting this is a history of pancreatitis patient does have evidence of pancreatitis case discussed Dr. Blackman. Patient be admitted (Viktor Bueno) Medical Decision Making - Lab Data Result diagrams: 02/14/20 10:02/14/20 10:05 <Viktor Bueno - Last Filed: 02/14/20 11:42> - Lab Data Result diagrams: 02/14/20 10:05 02/14/20 10:05 <Mayra Funes - Last Filed: 02/14/20 11:54> - Medical Decision Making 49-year-old male presenting for intractable vomiting and unable to eat or drink for 4 days. Lipase elevated near 3 times up her neck limit of normal. Epigastric pain increase in alkaline phosphatase. Patient appears dehydrated--will be admitted for IV hydration GI consultation for what is suspected acute on chronic pancreatitis most likely secondary to previous ETOH abuse. Dr. Blackman accepted the admission. (Mayra Funes) - Lab Data Lab Results 02/14/20 02/14/20 02/14/20 Range/Units 10:05 10:05 10:05 WBC 3.4 L (3.8-10.6) k/uL RBC 4.45 (4.30-5.90) m/uL Hgb 12.7 L (13.0-17.5) gm/dL Hct 40.9 (39.0-53.0) % MCV 92.0 (80.0-100.0) fL MCH 28.6 (25.0-35.0) pg MCHC 31.1 (31.0-37.0) g/dL RDW 15.5 (11.5-15.5) % Plt Count 324 (150-450) k/uL Neutrophils % 74 % Lymphocytes % 20 % Monocytes % 3 % Eosinophils % 2 % Basophils % 0 % Neutrophils # 2.6 (1.3-7.7) k/uL Lymphocytes # 0.7 L (1.0-4.8) k/uL Monocytes # 0.1 (0-1.0) k/uL Eosinophils # 0.1 (0-0.7) k/uL Basophils # 0.0 (0-0.2) k/uL Hypochromasia Moderate Sodium 138 (137-145) mmol/L Potassium 4.5 (3.5-5.1) mmol/L Chloride 102 (98-107) mmol/L Carbon Dioxide 14 L (22-30) mmol/L Anion Gap 22 mmol/L BUN 13 (9-20) mg/dL Creatinine 0.59 L (0.66-1.25) mg/dL Est GFR (CKD-EPI)AfAm >90 (>60 ml/min/1.73 sqM) Est GFR (CKD-EPI)NonAf >90 (>60 ml/min/1.73 sqM) Glucose 117 H (74-99) mg/dL Calcium 9.4 (8.4-10.2) mg/dL Total Bilirubin 0.4 (0.2-1.3) mg/dL AST 54 (17-59) U/L ALT 22 (4-49) U/L Alkaline Phosphatase 161 H (38-126) U/L Total Protein 7.8 (6.3-8.2) g/dL Albumin 4.4 (3.5-5.0) g/dL Lipase (23-300) U/L Coronavirus (PCR) Not Detected (Not Detectd) 02/14/20 Range/Units 10:05 WBC (3.8-10.6) k/uL RBC (4.30-5.90) m/uL Hgb (13.0-17.5) gm/dL Hct (39.0-53.0) % MCV (80.0-100.0) fL MCH (25.0-35.0) pg MCHC (31.0-37.0) g/dL RDW (11.5-15.5) % Plt Count (150-450) k/uL Neutrophils % % Lymphocytes % % Monocytes % % Eosinophils % % Basophils % % Neutrophils # (1.3-7.7) k/uL Lymphocytes # (1.0-4.8) k/uL Monocytes # (0-1.0) k/uL Eosinophils # (0-0.7) k/uL Basophils # (0-0.2) k/uL Hypochromasia Sodium (137-145) mmol/L Potassium (3.5-5.1) mmol/L Chloride (98-107) mmol/L Carbon Dioxide (22-30) mmol/L Anion Gap mmol/L BUN (9-20) mg/dL Creatinine (0.66-1.25) mg/dL Est GFR (CKD-EPI)AfAm (>60 ml/min/1.73 sqM) Est GFR (CKD-EPI)NonAf (>60 ml/min/1.73 sqM) Glucose (74-99) mg/dL Calcium (8.4-10.2) mg/dL Total Bilirubin (0.2-1.3) mg/dL AST (17-59) U/L ALT (4-49) U/L Alkaline Phosphatase (38-126) U/L Total Protein (6.3-8.2) g/dL Albumin (3.5-5.0) g/dL Lipase 817 H (23-300) U/L Coronavirus (PCR) (Not Detectd) Disposition <Viktor Bueno - Last Filed: 02/14/20 11:42> Is patient prescribed a controlled substance at d/c from ED?: No Time of Disposition: 11:16 Decision to Admit Reason: Admit from EC Decision Date: 02/14/20 Decision Time: 11:16 <Mayra Funes - Last Filed: 02/14/20 11:54> Clinical Impression: Intractable nausea and vomiting, Dehydration, Pancreatitis Disposition: ADMITTED IP TO THIS [facility] Condition: Good Instructions (If sedation given, give patient instructions): Pancreatitis (ED) Additional Instructions: s. Referrals: Alexander Randhawa MD [Primary Care Provider] - 1-2 days
[2020-02-14] MEDS: SODIUM CHLORIDE 0.9% 1,000 ML IV SCH ×2 (12:00→20:14)
--- NOTE | 2020-02-14 12:02 | US ---
EXAMINATION TYPE: US abdomen limited DATE OF EXAM: 02/14/2020 COMPARISON: NONE CLINICAL HISTORY: pancreatitis. EXAM MEASUREMENTS: Liver Length: 18.5 cm Gallbladder Wall: 0.6 cm CBD: 0.6 cm Right Kidney: 9.5 x 5.6 x 5.1 cm Patient of large body habitus, extensive bowel gas, patient had limited ability to cooperate, technic ally difficult study. Pancreas: Obscured by bowel gas Liver: enlarged Gallbladder: appears large, dependant echogenic foci, probable wall thickening Evidence for sonographic Corral's sign: no CBD: wnl Right Kidney: very limited visualization IMPRESSION: 1. Limited visualization of the pancreas. 2. Hepatomegaly. 3. Gallbladder hydrops with dependent sludge or small stones and wall thickening.
[2020-02-14] MEDS ORDERED: PIPERACILLIN-TAZOBACTAM 3.375 GM in SODIUM CHLORIDE 0.9% 100 ML IVPB STA (12:08)
[2020-02-14] MEDS ORDERED: NALOXONE 0.4 MG/ML 1 ML VIAL IV PRN (14:05)
--- NOTE | 2020-02-14 20:43 | P.HPIM ---
History of Present Illness H&P Date: 02/14/20 Chief Complaint: Nausea vomiting History of presenting complaint: [Patient was seen by me in the ER] This is a pleasant 49-year-old patient of Dr. ortiz. Chronic stable medical conditions include alcoholic cirrhosis, portal hypertension, hyperlipidemia, peripheral neuropathy. EGD earlier this year showed a leg grade D distal esophagitis, large hiatal hernia, gastric antral vascular ectasia and and there was no esophageal varices. Patient now presents with nausea vomiting for 2 days. No blood in the vomitus. No fever no chills no cough. Normally has a bowel movement daily. Denies any abdominal pain. Patient also had recently foot wounds that have now healed. Tired rundown. Review of systems: GEN.: Tired EYES: None HEENT: None NECK: None RESPIRATORY: None CARDIOVASCULAR: None GASTROINTESTINAL: As above GENITOURINARY: None MUSCULOSKELETAL: None LYMPHATICS: None HEMATOLOGICAL: None PSYCHIATRY: None NEUROLOGICAL: Numbness in both the feet Past medical history to include: Alcoholic cirrhosis, portal hypertension, hypoalbuminemia, peripheral neuropathy from alcohol, left foot wound-healed, GERD ascites with multiple paracentesis pancreatitis hiatal hernia chronic low back pain, distal esophagitis, large hiatal hernia, gastric antral vascular ectasia Social history: Lives with his . started smoking in 1996, a pack a day stopped in December 29. Patient used to do heavy alcohol in the past stopped in September 2016. Previous opiate dependence-now uses Suboxone. Physical examination: VITAL SIGNS: 97.4, 65, 18, 1606, 100% on room air GENERAL: BMI 30.8, laying in bed tired. EYES: Pupils equal. Conjunctiva normal. HEENT: External appearance of nose and ears normal, oral cavity grossly normal. NECK: JVD not raised; masses not palpable. HEART: First and second heart sounds are normal; no edema. LUNGS: Respiratory rate normal; decreased breath sounds. ABDOMEN: Soft, nontender, liver spleen not palpable, possible hepatomegaly. PSYCH: Alert and oriented x3; mood and affect tired NEUROLOGICAL: Cranial nerves grossly intact; no facial asymmetry, power and sensation grossly intact. LYMPHATICS: No lymph nodes palpable in the axilla and neck INVESTIGATIONS, reviewed in the clinical context: White count 3.4 hemoglobin 12.7 pressure 4.5 creatinine 0.59 Lipase 817 COVID-19 PCR-not detected Abdominal ultrasound-gallbladder hydrops with dependent sludge or small stones and wall thickening. Hepatomegaly Chest x-ray film-grossly reviewed by me no obvious abnormality Assessment: -This is a patient presented with nausea vomiting of 2 days' duration. No epigastric pain. With some elevation of lipase. This could be mild pancreatitis. There is no fever no chills. -Abnormal gallbladder on ultrasound. Patient has no right upper quadrant tenderness. -Alcoholic cirrhosis -Portal hypertension -Diabetic peripheral neuropathy -Left foot wound secondary to neuropathy-healed -GERD -Large hiatal hernia -LA grade D distal esophagitis, - large hiatal hernia, -gastric antral vascular ectasia - Plan: We will get a general surgery and GI opinion. Start the patient clear liquids. Home medications to continue. Care was discussed with the patient. Questions were answered. Past Medical History Past Medical History: GERD/Reflux, Liver Disease, Pneumonia, Skin Disorder Additional Past Medical History / Comment(s): Past ETOH abuse-has not drank since 2015, ascities with numerous paracenteisi, AMS/high amylase/vented, pancreatitis, chronic anemia, hiatal hernia, neuropathy bilateral legs/feet and has sores bilateral feet with L foot casted, chronic back pain. History of Any Multi-Drug Resistant Organisms: None Reported Past Surgical History: Adenoidectomy, Back Surgery, Hernia Repair, Tonsillectomy Additional Past Surgical History / Comment(s): Open heart surgery to remove glass from heart (fell into glass on a door), low back surgery, R inguinal hernia repair, EGD, I&D L foot wound Past Anesthesia/Blood Transfusion Reactions: No Reported Reaction Past Psychological History: No Psychological Hx Reported Additional Psychological History / Comment(s): Pt resides with his spouse. He uses a walker. He can drive but spouse states he is currently not suppose to drive because of bilateral foot wounds. Smoking Status: Former smoker Past Alcohol Use History: None Reported Additional Past Alcohol Use History / Comment(s): STARTED SMOKING IN 1996, SMOKED 1PPD QUIT 01/07/17, PAST DAILY ETOH-QUIT SEP 2016 Past Drug Use History: None Reported, Opiates Additional Drug Use History / Comment(s): previous opiate dependance many yrs ago, currently uses suboxone - Past Family History Father History Unknown: Yes Family Medical History: Dementia Additional Family Medical History / Comment(s): Father is living. Mother Family Medical History: Diabetes Mellitus Additional Family Medical History / Comment(s): Mother is . Medications and Allergies Home Medications Medication Instructions Recorded Confirmed Type Thiamine [Vitamin B-1] 100 mg PO DAILY #30 tab 11/06/16 02/14/20 Rx Folic Acid 1 mg PO DAILY 05/20/18 02/14/20 History Lactulose [Constulose] 20 gm PO AC-TID 05/20/18 02/14/20 History Modafinil [Provigil] 200 mg PO BID 05/20/18 02/14/20 History Buprenorphine HCl [Subutex] 8 mg SL ACHS 11/21/19 02/14/20 History Furosemide [Lasix] 20 mg PO DAILY 11/21/19 02/14/20 History Nortriptyline [Pamelor] 50 mg PO HS 11/21/19 02/14/20 History Rifaximin [Xifaxan] 550 mg PO TID 11/21/19 02/14/20 History Spironolactone [Aldactone] 50 mg PO BID 11/21/19 02/14/20 History Sucralfate [Carafate] 1 gm PO AC-TID 30 Days #90 tab 11/25/19 02/14/20 Rx Armodafinil [Nuvigil] 250 mg PO DAILY 02/14/20 02/14/20 History Omeprazole [PriLOSEC] 40 mg PO DAILY 02/14/20 02/14/20 History Pregabalin [Lyrica] 200 mg PO AC-TID 02/14/20 02/14/20 History Allergies Allergy/AdvReac Type Severity Reaction Status Date / Time No Known Allergies Allergy Verified 02/14/20 14:15 Physical Exam Vitals: Vital Signs Temp Pulse Pulse Resp BP BP Pulse Ox 02/14/20 15:00 97.5 F L 70 17 117/57 97 02/14/20 14:29 65 18 127/79 97 02/14/20 14:00 18 02/14/20 13:30 127/79 02/14/20 13:00 18 129/76 97 02/14/20 12:30 122/74 98 02/14/20 12:00 20 127/79 98 02/14/20 11:30 132/82 97 02/14/20 11:00 130/84 98 02/14/20 10:30 113/70 02/14/20 10:07 98 02/14/20 09:36 97.4 F L 65 18 116/76 100 Intake and Output 02/14/20 02/14/20 02/14/20 06:59 14:59 22:59 Other: Voiding Method Urinal Weight 117.934 kg 117.934 kg Results CBC & Chem 7: 02/14/20 10:05 02/14/20 10:05 Labs: Abnormal Lab Results - Last 24 Hours (Table) 02/14/20 02/14/20 02/14/20 Range/Units 10:05 10:05 10:05 WBC 3.4 L (3.8-10.6) k/uL Hgb 12.7 L (13.0-17.5) gm/dL Lymphocytes # 0.7 L (1.0-4.8) k/uL Carbon Dioxide 14 L (22-30) mmol/L Creatinine 0.59 L (0.66-1.25) mg/dL Glucose 117 H (74-99) mg/dL Alkaline Phosphatase 161 H (38-126) U/L Lipase 817 H (23-300) U/L Thrombosis Risk Factor Assmnt - Choose All That Apply Each Factor Represents 1 point: Age 41-60 years, Obesity (BMI >25) Other Risk Factors: No Other congenital or acquired thrombophilia - If yes, enter type in comment: No Thrombosis Risk Factor Assessment Total Risk Factor Score: 2 Thrombosis Risk Factor Assessment Level: Low Risk
[2020-02-14] MEDS ORDERED: LACTATED RINGERS 1,000 ML IV SCH (20:45)
[2020-02-14] MEDS: PREGABALIN 100 MG CAP PO SCH (21:10)
[2020-02-14] MEDS: RIFAXIMIN 550 MG TABLET PO SCH (21:10)
[2020-02-14] MEDS: PANTOPRAZOLE 40 MG TABLET PO SCH (21:10)
[2020-02-14] MEDS: SODIUM BICARBONATE TAB 650 MG TAB PO SCH (21:10)
[2020-02-14] MEDS: SPIRONOLACTONE 25 MG TAB PO SCH (21:10)
[2020-02-14] MEDS: NORTRIPTYLINE 25 MG CAP PO SCH (21:10)
[2020-02-14] MEDS: BUPRENORPHINE HCL 8 MG SUBLINGUAL SCH (21:15)
[2020-02-15] MEDS ORDERED: ONDANSETRON 4 MG/2 ML VIAL IVP PRN ×2 (07:06→11:33)
[2020-02-15] MEDS ORDERED: ACETAMINOPHEN IV (For NPO) 1,000 MG in EMPTY BAG 1 BAG IVPB ONE (07:30)
[2020-02-15] MEDS: SUCRALFATE 1 GM TAB PO SCH ×3 (09:01→16:57)
[2020-02-15] MEDS: PANTOPRAZOLE 40 MG TABLET PO SCH (09:12)
[2020-02-15] MEDS: PREGABALIN 100 MG CAP PO SCH ×3 (09:12→16:57)
[2020-02-15] MEDS: BUPRENORPHINE HCL 8 MG SUBLINGUAL SCH ×4 (09:12→20:40)
[2020-02-15] MEDS: LACTULOSE 20 GM/30 ML CUP PO SCH ×3 (09:12→16:57)
[2020-02-15] MEDS: ARMODAFINIL 250 MG PO SCH (09:13)
[2020-02-15] MEDS: FOLIC ACID 1 MG TAB PO SCH (09:13)
[2020-02-15] MEDS: SODIUM BICARBONATE TAB 650 MG TAB PO SCH ×4 (09:14→20:39)
[2020-02-15] MEDS: FUROSEMIDE 20 MG TAB PO SCH (09:14)
[2020-02-15] MEDS: THIAMINE 100 MG TAB PO SCH (09:14)
[2020-02-15] MEDS: RIFAXIMIN 550 MG TABLET PO SCH ×3 (09:14→20:40)
[2020-02-15] MEDS: SPIRONOLACTONE 25 MG TAB PO SCH ×2 (09:14→20:40)
[2020-02-15 10:25] LABS: ALT 24 U/L (4-49); AST 62 U/L (17-59); African American GFR (CKD) >90 (>60 ml/min/1.73 sqM); Albumin 4.4 g/dL (3.5-5.0); Alkaline Phosphatase 159 U/L (38-126); Anion Gap 24 mmol/L; Blood Urea Nitrogen 14 mg/dL (9-20); Chloride 109 mmol/L (98-107); Glucose 70 mg/dL (74-99); Non-African American GFR(CKD) >90 (>60 ml/min/1.73 sqM); Potassium 5.3 mmol/L (3.5-5.1); Sodium 140 mmol/L (137-145); Total Bilirubin 0.5 mg/dL (0.2-1.3)
[2020-02-15] MEDS ORDERED: KETOROLAC 30 MG/ML 1 ML VIAL IVP STA (11:17)
[2020-02-15 11:25] LABS: Amylase 1401 U/L (30-110)
[2020-02-15 11:27] LABS: Carbon Dioxide 7 mmol/L (22-30)
[2020-02-15] MEDS ORDERED: SODIUM CHLORIDE 0.9% 1,000 ML IV SCH (11:30)
[2020-02-15] MEDS: ONDANSETRON 4 MG/2 ML VIAL IVP SCH ×2 (11:50→16:59)
[2020-02-15] MEDS: SODIUM CHLORIDE 0.9% 1,000 ML with SODIUM BICARB (1 MEQ/ML) 50 ML IV SCH ×2 (14:44)
--- NOTE | 2020-02-15 16:21 | P.GSCN ---
History of Present Illness Consult date: 02/15/20 Reason for Consult: Pancreatitis History of present illness: This is a 49-year-old male who was admitted to hospital for pancreatitis. Patient had severe nausea vomiting and abdominal pain. His lipase had climbed to 8000 range. His ultrasound shows evidence of cholelithiasis, gallbladder sludge and thickened gallbladder wall. Patient's previous history of alcohol abuse. He states he has not drank in 4 years. Past Medical History Past Medical History: GERD/Reflux, Liver Disease, Pneumonia, Skin Disorder Additional Past Medical History / Comment(s): Past ETOH abuse-has not drank since 2016, ascities with numerous paracenteisi, AMS/high amylase/vented, pancreatitis, chronic anemia, hiatal hernia, neuropathy bilateral legs/feet and has sores bilateral feet with L foot casted, chronic back pain. History of Any Multi-Drug Resistant Organisms: None Reported Past Surgical History: Adenoidectomy, Back Surgery, Hernia Repair, Tonsillectomy Additional Past Surgical History / Comment(s): Open heart surgery to remove glass from heart (fell into glass on a door), low back surgery, R inguinal wesley ia repair, EGD, I&D L foot wound Past Anesthesia/Blood Transfusion Reactions: No Reported Reaction Past Psychological History: No Psychological Hx Reported Additional Psychological History / Comment(s): Pt resides with his spouse. He uses a walker. He can drive but spouse states he is currently not suppose to drive because of bilateral foot wounds. Smoking Status: Former smoker Past Alcohol Use History: None Reported Additional Past Alcohol Use History / Comment(s): STARTED SMOKING IN 1996, SMOKED 1PPD QUIT 01/07/17, PAST DAILY ETOH-QUIT SEP 2016 Past Drug Use History: None Reported, Opiates Additional Drug Use History / Comment(s): previous opiate dependance many yrs ago, currently uses suboxone - Past Family History Father History Unknown: Yes Family Medical History: Dementia Additional Family Medical History / Comment(s): Father is living. Mother Family Medical History: Diabetes Mellitus Additional Family Medical History / Comment(s): Mother is . Medications and Allergies Home Medications Medication Instructions Recorded Confirmed Type Thiamine [Vitamin B-1] 100 mg PO DAILY #30 tab 11/06/16 02/14/20 Rx Folic Acid 1 mg PO DAILY 05/20/18 02/14/20 History Lactulose [Constulose] 20 gm PO AC-TID 05/20/18 02/14/20 History Modafinil [Provigil] 200 mg PO BID 05/20/18 02/14/20 History Buprenorphine HCl [Subutex] 8 mg SL ACHS 11/21/19 02/14/20 History Furosemide [Lasix] 20 mg PO DAILY 11/21/19 02/14/20 History Nortriptyline [Pamelor] 50 mg PO HS 11/21/19 02/14/20 History Rifaximin [Xifaxan] 550 mg PO TID 11/21/19 02/14/20 History Spironolactone [Aldactone] 50 mg PO BID 11/21/19 02/14/20 History Sucralfate [Carafate] 1 gm PO AC-TID 30 Days #90 tab 11/25/19 02/14/20 Rx Armodafinil [Nuvigil] 250 mg PO DAILY 02/14/20 02/14/20 History Omeprazole [PriLOSEC] 40 mg PO DAILY 02/14/20 02/14/20 History Pregabalin [Lyrica] 200 mg PO AC-TID 02/14/20 02/14/20 History Allergies Allergy/AdvReac Type Severity Reaction Status Date / Time No Known Allergies Allergy Verified 02/14/20 14:15 Surgical - Exam Vital Signs Temp Pulse Resp BP Pulse Ox 97.4 F L 65 18 116/76 100 02/14/20 09:36 02/14/20 09:36 02/14/20 09:36 02/14/20 09:36 02/14/20 09:36 - General Patient is extremely nauseous well developed, well nourished - Eyes PERRL - ENT normal pinna - Neck no masses - Respiratory normal expansion - Cardiovascular Rhythm: regular - Abdomen Minimal tenderness on deep palpation Abdomen: soft Results - Labs 02/14/20 10:05 02/15/20 09:49 Abnormal Lab Results - Last 24 Hours (Table) 02/15/20 02/15/20 Range/Units 09:49 12:03 Potassium 5.3 H (3.5-5.1) mmol/L Chloride 109 H (98-107) mmol/L Carbon Dioxide 7 L* (22-30) mmol/L Glucose 70 L (74-99) mg/dL AST 62 H (17-59) U/L Alkaline Phosphatase 159 H (38-126) U/L Ammonia 74 H (<30) umol/L Amylase 1401 H* (30-110) U/L Lipase 5857 H (23-300) U/L Diabetes panel 02/15/20 Range/Units 09:49 Sodium 140 (137-145) mmol/L Potassium 5.3 H (3.5-5.1) mmol/L Chloride 109 H (98-107) mmol/L Carbon Dioxide 7 L* (22-30) mmol/L BUN 14 (9-20) mg/dL Creatinine 0.73 (0.66-1.25) mg/dL Glucose 70 L (74-99) mg/dL Calcium 10.0 (8.4-10.2) mg/dL AST 62 H (17-59) U/L ALT 24 (4-49) U/L Alkaline Phosphatase 159 H (38-126) U/L Total Protein 8.0 (6.3-8.2) g/dL Albumin 4.4 (3.5-5.0) g/dL Calcium panel 02/15/20 Range/Units 09:49 Calcium 10.0 (8.4-10.2) mg/dL Albumin 4.4 (3.5-5.0) g/dL Pituitary panel 02/15/20 Range/Units 09:49 Sodium 140 (137-145) mmol/L Potassium 5.3 H (3.5-5.1) mmol/L Chloride 109 H (98-107) mmol/L Carbon Dioxide 7 L* (22-30) mmol/L BUN 14 (9-20) mg/dL Creatinine 0.73 (0.66-1.25) mg/dL Glucose 70 L (74-99) mg/dL Calcium 10.0 (8.4-10.2) mg/dL Adrenal panel 02/15/20 Range/Units 09:49 Sodium 140 (137-145) mmol/L Potassium 5.3 H (3.5-5.1) mmol/L Chloride 109 H (98-107) mmol/L Carbon Dioxide 7 L* (22-30) mmol/L BUN 14 (9-20) mg/dL Creatinine 0.73 (0.66-1.25) mg/dL Glucose 70 L (74-99) mg/dL Calcium 10.0 (8.4-10.2) mg/dL Total Bilirubin 0.5 (0.2-1.3) mg/dL AST 62 H (17-59) U/L ALT 24 (4-49) U/L Alkaline Phosphatase 159 H (38-126) U/L Total Protein 8.0 (6.3-8.2) g/dL Albumin 4.4 (3.5-5.0) g/dL Assessment and Plan Assessment: Pancreatitis Cholelithiasis Once patient is optimized we will consider laparoscopic cholecystectomy for gallstone pancreatitis
[2020-02-15] MEDS ORDERED: KETOROLAC 30 MG/ML 1 ML VIAL IVP PRN (16:27)
[2020-02-15] MEDS: MODAFINIL 200 MG TAB PO SCH (16:57)
[2020-02-15] MEDS: HYDROmorphone 0.5 MG/0.5 ML SYRINGE IVP PRN (19:47)
[2020-02-15] MEDS: NORTRIPTYLINE 25 MG CAP PO SCH (20:40)
--- NOTE | 2020-02-15 21:12 | P.CONS ---
History of Present Illness - Reason for Consult Consult date: 02/15/20 Abdominal pain Requesting physician: Janes Blackman - Chief Complaint Abdominal pain,nausea and vomiting - History of Present Illness 49-year-old male with medical comorbidities including alcoholic cirrhosis, portal hypertension, hyperlipidemia and peripheral neuropathy who presented to the hospital with complaints of abdominal pain and nausea and vomiting. Patient had ultrasound performed in evaluation was significant for a hydropic gallbladder with sludge and cholelithiasis noted. Amylase found to be elevated at 1401 and lipase of 5857. Other laboratory evaluation significant for WBC 3.4, hemoglobin 12.7, platelet count 329,000, total bilirubin 0.4, alkaline p hosphatase 161, AST 54 and ALT 22. Patient has a known history of decompensated cirrhosis of the liver with ascites and encephalopathy. He was treated in the outpatient setting with diuresis with Lasix and Aldactone and lactulose and Xifaxan for treatment of encephalopathy. Previously the patient had been seen on last hospitalization with complaints of vomiting blood and had EGD on 11/23/2019 significant for LA grade D esophagitis, a large hiatal hernia and gastric antral vascular ectasia with no varices noted at that time. He is denying any signs or symptoms of GI bleeding at this time. He reports last BM yesterday was normal in color and caliber. Review of Systems REVIEW OF SYSTEMS: CONSTITUTIONAL: Denies any fevers, chills, weight change or fatigue. CARDIOVASCULAR: Denies any chest pain, palpitations high or low blood pressures RESPIRATORY: Denies any shortness of breath, hemoptysis or cough. GENITOURINARY: No dysuria or hematuria. MUSCULOSKELETAL: No weakness reported. SKIN: Denies any new rashes or lesions, jaundice or pallor. PSYCHIATRIC: Denies any depression or anxiety. NEUROLOGY: Denies headache, denies any new focal deficits. EARS/NOSE/THROAT: No recent hearing change, congestion, nasal discharge or sore throat. EYES: No pain in eyes, discharge or change in vision. GASTROINTESTINAL: As per HPI. Past Medical History Past Medical History: GERD/Reflux, Liver Disease, Pneumonia, Skin Disorder Additional Past Medical History / Comment(s): Past ETOH abuse-has not drank since 2016, ascities with numerous paracenteisi, AMS/high amylase/vented, pancreatitis, chronic anemia, hiatal hernia, neuropathy bilateral legs/feet and has sores bilateral feet with L foot casted, chronic back pain. History of Any Multi-Drug Resistant Organisms: None Reported Past Surgical History: Adenoidectomy, Back Surgery, Hernia Repair, Tonsillectomy Additional Past Surgical History / Comment(s): Open heart surgery to remove glass from heart (fell into glass on a door), low back surgery, R inguinal hernia repair, EGD, I&D L foot wound Past Anesthesia/Blood Transfusion Reactions: No Reported Reaction Past Psychological History: No Psychological Hx Reported Additional Psychological History / Comment(s): Pt resides with his spouse. He uses a walker. He can drive but spouse states he is currently not suppose to drive because of bilateral foot wounds. Smoking Status: Former smoker Past Alcohol Use History: None Reported Additional Past Alcohol Use History / Comment(s): STARTED SMOKING IN 1996, SMOKED 1PPD QUIT 01/07/17, PAST DAILY ETOH-QUIT SEP 2016 Past Drug Use History: None Reported, Opiates Additional Drug Use History / Comment(s): previous opiate dependance many yrs ago, currently uses suboxone - Past Family History Father History Unknown: Yes Family Medical History: Dementia Additional Family Medical History / Comment(s): Father is living. Mother Family Medical History: Diabetes Mellitus Additional Family Medical History / Comment(s): Mother is . Medications and Allergies Home Medications Medication Instructions Recorded Confirmed Type Thiamine [Vitamin B-1] 100 mg PO DAILY #30 tab 11/06/16 02/14/20 Rx Folic Acid 1 mg PO DAILY 05/20/18 02/14/20 History Lactulose [Constulose] 20 gm PO AC-TID 05/20/18 02/14/20 History Modafinil [Provigil] 200 mg PO BID 05/20/18 02/14/20 History Buprenorphine HCl [Subutex] 8 mg SL ACHS 11/21/19 02/14/20 History Furosemide [Lasix] 20 mg PO DAILY 11/21/19 02/14/20 History Nortriptyline [Pamelor] 50 mg PO HS 11/21/19 02/14/20 History Rifaximin [Xifaxan] 550 mg PO TID 11/21/19 02/14/20 History Spironolactone [Aldactone] 50 mg PO BID 11/21/19 02/14/20 History Sucralfate [Carafate] 1 gm PO AC-TID 30 Days #90 tab 11/25/19 02/14/20 Rx Armodafinil [Nuvigil] 250 mg PO DAILY 02/14/20 02/14/20 History Omeprazole [PriLOSEC] 40 mg PO DAILY 02/14/20 02/14/20 History Pregabalin [Lyrica] 200 mg PO AC-TID 02/14/20 02/14/20 History Allergies Allergy/AdvReac Type Severity Reaction Status Date / Time No Known Allergies Allergy Verified 02/14/20 14:15 Physical Exam Vitals: Vital Signs Temp Pulse Pulse Resp BP BP Pulse Ox 02/15/20 05:00 97.4 F L 86 16 119/70 98 02/15/20 00:00 16 02/14/20 21:00 97.5 F L 108 H 16 124/73 98 02/14/20 15:00 97.5 F L 70 17 117/57 97 02/14/20 14:29 65 18 127/79 97 02/14/20 14:00 18 02/14/20 13:30 127/79 02/14/20 13:00 18 129/76 97 02/14/20 12:30 122/74 98 02/14/20 12:00 20 127/79 98 02/14/20 11:30 132/82 97 02/14/20 11:00 130/84 98 02/14/20 10:30 113/70 Intake and Output 02/14/20 02/15/20 02/15/20 22:59 06:59 14:59 Intake Total 1220 640 Output Total 600 1000 Balance 620 -360 Intake: Intake, IV Titration 500 400 Amount Lactated Ringers 1,000 ml 50 400 @ 50 mls/hr IV .Q20H [facility] Rx#:[id number] Sodium Chloride 0.9% 1, 450 000 ml @ 150 mls/hr IV . Q6H40M [facility] Rx#:[id number] Oral 720 240 Output: Urine 600 800 Oral Regurgitation 200 Other: Voiding Method Urinal Urinal Urinal Weight 117.934 kg On physical examination, patient appears comfortable in no apparent distress. HEAD: Normocephalic, atraumatic. EYES: No scleral icterus. No conjunctival injection. MOUTH: No lesions, tongue midline. NECK: Trachea midline, no gross abnormalities. CHEST: Clear to auscultation with no wheezing or rhonchi appreciated. HEART: Regular rate and rhythm. ABDOMEN: Soft, mildly tender to palpation. Bowel sounds are positive. No organomegaly. No guarding or rigidity. EXTREMITIES: No pedal edema. SKIN: No rashes, no jaundice. NEUROLOGIC: Alert and oriented x3. No focal deficits. Results CBC & Chem 7: 02/14/20 10:05 02/15/20 09:49 Labs: Abnormal Lab Results - Last 24 Hours (Table) 02/14/20 02/14/20 02/14/20 Range/Units 10:05 10:05 10:05 WBC 3.4 L (3.8-10.6) k/uL Hgb 12.7 L (13.0-17.5) gm/dL Lymphocytes # 0.7 L (1.0-4.8) k/uL Carbon Dioxide 14 L (22-30) mmol/L Creatinine 0.59 L (0.66-1.25) mg/dL Glucose 117 H (74-99) mg/dL Alkaline Phosphatase 161 H (38-126) U/L Lipase 817 H (23-300) U/L US - abdomen: report reviewed (Findings of hydropic gallbladder with sludge and stones on ultrasound) Assessment and Plan (1) Pancreatitis Narrative/Plan: 49-year-old with multiple medical comorbidities including decompensated alcoholic liver disease with encephalopathy and ascites who presented due to nausea vomiting and abdominal pain. Found to have an acute elevation in amylase at 1401 and lipase at 5857. Ultrasound of the abdomen did show findings of sludge and stones with hydropic gallbladder. Currently being treated for possible gallstone pancreatitis with plan for cholecystectomy when medically stable. Current Visit: Yes Status: Acute Code(s): K85.90 - ACUTE PANCREATITIS WITHOUT NECROSIS OR INFECTION, UNSP SNOMED Code(s): 78080972 (2) Intractable nausea and vomiting Current Visit: Yes Status: Acute Code(s): R11.2 - NAUSEA WITH VOMITING, UNSPECIFIED SNOMED Code(s): 064416372 (3) Abdominal pain Current Visit: No Status: Acute Code(s): R10.9 - UNSPECIFIED ABDOMINAL PAIN SNOMED Code(s): 38336443 (4) Alcoholic liver disease Current Visit: No Status: Acute Code(s): K70.9 - ALCOHOLIC LIVER DISEASE, UNSPECIFIED SNOMED Code(s): 75247507 Plan: Supportive care Nothing by mouth except for ice chips Fluid hydration Pain control Surgical service following Continue to follow CBC, CMP Continue diuresis with Lasix and Aldactone Continue treatment of encephalopathy with Xifaxan and lactulose Continue sucralfate and Protonix with recent findings of reflux esophagitis Continue to monitor symptoms Thank you for allowing us to participate in the care of the patient we will continue to follow
[2020-02-16] MEDS ORDERED: ONDANSETRON 4 MG/2 ML VIAL ONE
[2020-02-16] MEDS: SODIUM CHLORIDE 0.9% 1,000 ML with SODIUM BICARB (1 MEQ/ML) 50 ML IV SCH ×2 (04:22)
[2020-02-16] MEDS: ONDANSETRON 4 MG/2 ML VIAL IVP SCH ×4 (04:22→18:08)
[2020-02-16] MEDS ORDERED: PROCHLORPERAZINE 5 MG TAB PO PRN (04:54)
[2020-02-16] MEDS: TRIMETHOBENZAMIDE 100 MG/ML 2 ML VIAL IM PRN (05:10)
[2020-02-16] MEDS: LACTULOSE 20 GM/30 ML CUP PO SCH (08:34)
[2020-02-16] MEDS: MODAFINIL 200 MG TAB PO SCH ×2 (08:35→16:44)
[2020-02-16] MEDS: PANTOPRAZOLE 40 MG TABLET PO SCH (08:36)
[2020-02-16] MEDS: SUCRALFATE 1 GM TAB PO SCH ×3 (08:36→16:44)
[2020-02-16] MEDS: PREGABALIN 100 MG CAP PO SCH ×3 (08:36→16:44)
[2020-02-16] MEDS: SPIRONOLACTONE 25 MG TAB PO SCH ×2 (08:37→20:17)
[2020-02-16] MEDS: FOLIC ACID 1 MG TAB PO SCH (08:37)
[2020-02-16] MEDS: BUPRENORPHINE HCL 8 MG SUBLINGUAL SCH ×4 (08:37→22:59)
[2020-02-16] MEDS: RIFAXIMIN 550 MG TABLET PO SCH ×3 (08:37→22:59)
[2020-02-16] MEDS: ARMODAFINIL 250 MG PO SCH (08:37)
[2020-02-16] MEDS: FUROSEMIDE 20 MG TAB PO SCH (08:37)
[2020-02-16] MEDS: SODIUM BICARBONATE TAB 650 MG TAB PO SCH ×3 (08:37→16:44)
[2020-02-16] MEDS: THIAMINE 100 MG TAB PO SCH (08:38)
--- NOTE | 2020-02-16 09:34 | P.PN ---
Progress Note - Text Progress Note Date: 02/15/20 Chief Complaint: Nausea vomiting History of presenting complaint: [Patient was seen by me in the ER] This is a pleasant 49-year-old patient of Dr. ortiz. Chronic stable medical conditions include alcoholic cirrhosis, portal hypertension, hyperlipidemia, peripheral neuropathy. EGD earlier this year showed a leg grade D distal esophagitis, large hiatal hernia, gastric antral vascular ectasia and and there was no esophageal varices. Patient now presents with nausea vomiting for 2 days. No blood in the vomitus. No fever no chills no cough. Normally has a bowel movement daily. Denies any abdominal pain. Patient also had recently foot wounds that have now healed. Tired rundown. Admitted with acute pancreatitis. Today-patient had multiple bouts of vomiting. Patient's amylase lipase a shot up. Epigastric pain. No fever no chills. Tired. made nothing by mouth. Review of systems: Was done for constitutional, cardiovascular, GI, pulmonary. relevant finding as above Current medications reviewed into his electronic records Physical examination: VITAL SIGNS: 97.6, 91, 20, 125/75, 98% on room air GENERAL: Laying in bed, uncomfortable EYES: Pupils equal. Conjunctiva normal. HEENT: External appearance of nose and ears normal, oral cavity grossly normal. NECK: JVD not raised; masses not palpable. HEART: First and second heart sounds are normal; no edema. LUNGS: Respiratory rate normal; decreased breath sounds. ABDOMEN: Soft, epigastric tenderness, no guarding or rigidity, liver spleen not palpable, possible hepatomegaly. PSYCH: Alert and oriented x3; mood and affect tired INVESTIGATIONS, reviewed in the clinical context: Potassium 5.3 bicarb 7 creatinine 0.73 amylase 1401 lipase 5857 Previous testing White count 3.4 hemoglobin 12.7 pressure 4.5 creatinine 0.59 Lipase 817 COVID-19 PCR-not detected Abdominal ultrasound-gallbladder hydrops with dependent sludge or small stones and wall thickening. Hepatomegaly Chest x-ray film-grossly reviewed by me no obvious abnormality Assessment: -Acute pancreatitis, worsening -Acute metabolic acidosis from above. -Abnormal gallbladder on ultrasound. Patient has no right upper quadrant tenderness. -Alcoholic cirrhosis -Portal hypertension -Diabetic peripheral neuropathy -Left foot wound secondary to neuropathy-healed -GERD -Large hiatal hernia -LA grade D distal esophagitis, - large hiatal hernia, -gastric antral vascular ectasia - Plan: Patient to remain nothing by mouth. Change IV fluids of normal saline with bicarbonate. Repeat labs in the morning. Discussed with Dr. Lerma. Patient may need cholecystectomy down the road.
[2020-02-16 10:28] LABS: HCT 45.5 % (39.0-53.0); HGB 13.9 gm/dL (13.0-17.5); Hypochromasia Marked; MCH 28.9 pg (25.0-35.0); MCHC 30.5 g/dL (31.0-37.0); MCV 94.5 fL (80.0-100.0); Mean Platelet Volume 8.4; Platelet Count 331 k/uL (150-450); RBC 4.82 m/uL (4.30-5.90); RDW 15.8 % (11.5-15.5); WBC 12.8 k/uL (3.8-10.6)
--- NOTE | 2020-02-16 10:39 | XR ---
EXAMINATION TYPE: XR KUB DATE OF EXAM: 02/16/2020 COMPARISON: NONE HISTORY: Pain TECHNIQUE: Single supine KUB image of the abdomen is obtained FINDINGS: Mild air distended stomach, small bowel and to a lesser extent large bowel which may reflect underlyi ng ileus. No convincing evidence for pneumoperitoneum. No unusual calcifications. The lung bases are clear. The osseous structures are intact. IMPRESSION: 1. Nonspecific nonobstructive bowel gas pattern although I do favor ileus.
[2020-02-16 10:45] LABS: Albumin 4.8 g/dL (3.5-5.0); Calcium 10.4 mg/dL (8.4-10.2); Potassium 4.9 mmol/L (3.5-5.1); Total Bilirubin 0.7 mg/dL (0.2-1.3); Total Protein 8.4 g/dL (6.3-8.2)
[2020-02-16] MEDS: LACTULOSE 200 GM/300 ML (FROM 1/2 GAL JUG) RECTAL SCH ×2 (11:30→18:08)
--- NOTE | 2020-02-16 11:33 | P.PN ---
Progress Note - Text Progress Note Date: 02/16/20 Patient remains stable. He saw his colitis and nausea. His lipase is decreased to 3700. On exam his vital signs are stable. His abdomen soft. There is some minimal epigastric and's. Patient placed most likely related to gallstones. Patient will undergo laparoscopic cholecystectomy in stable.
[2020-02-16 13:01] LABS: Glucose,Whole Blood 128 mg/dL (75-99)
--- NOTE | 2020-02-16 14:55 | P.PN ---
Subjective Progress Note Date: 02/16/20 Principal diagnosis: Alcoholic cirrhosis, gallstone pancreatitis, nausea and vomiting, esophagitis Patient seen lying in bed still reporting nausea and vomiting today multiple epi sodes of vomiting this morning. Patient has not tolerated oral medications. Objective - Vital Signs Vital signs: Vital Signs Temp 97.7 F 02/16/20 05:00 Pulse 107 H 02/16/20 11:35 Resp 17 02/16/20 05:00 BP 116/75 02/16/20 11:35 Pulse Ox 96 02/16/20 11:35 Intake & Output 02/15/20 02/16/20 02/16/20 18:59 06:59 18:59 Intake Total 600 900 600 Output Total 1000 Balance 600 -100 600 Intake: Intake, IV Titration 600 900 600 Amount Sodium Chloride 0.9% 1, 600 900 600 000 ml @ 75 mls/hr IV . Q14H [facility] with Sodium Bicarb (1 Meq/ml) 50 ml Rx#:[id number] Output: Emesis 1000 Other: Voiding Method Urinal Urinal Urinal Incontinent # Voids 4 - Exam On physical examination, patient appears comfortable in no apparent distress. HEAD: Normocephalic, atraumatic. EYES: No scleral icterus. No conjunctival injection. MOUTH: No lesions, tongue midline. NECK: Trachea midline, no gross abnormalities. ABDOMEN: Soft, obese, mildly tender to palpation. Bowel sounds are positive. No organomegaly. No guarding or rigidity. EXTREMITIES: No pedal edema. SKIN: No rashes, no jaundice. NEUROLOGIC: Alert and oriented to person, no asterixis noted. No focal deficits. - Labs CBC & Chem 7: 02/16/20 10:00 02/16/20 10:09 Labs: Abnormal Lab Results - Last 24 Hours (Table) 02/16/20 02/16/20 02/16/20 Range/Units 10:00 10:09 12:42 WBC 12.8 H (3.8-10.6) k/uL MCHC 30.5 L (31.0-37.0) g/dL RDW 15.8 H (11.5-15.5) % Carbon Dioxide 9 L* (22-30) mmol/L BUN 25 H (9-20) mg/dL Glucose 118 H (74-99) mg/dL POC Glucose (mg/dL) 128 H (75-99) mg/dL Calcium 10.4 H (8.4-10.2) mg/dL Alkaline Phosphatase 185 H (38-126) U/L Total Protein 8.4 H (6.3-8.2) g/dL Amylase 678 H* (30-110) U/L Lipase 3716 H (23-300) U/L Assessment and Plan (1) Pancreatitis Narrative/Plan: 49-year-old with multiple medical comorbidities including decompensated alcoholic liver disease with encephalopathy and ascites who presented due to nausea vomiting and abdominal pain. Found to have an acute elevation in amylase at 1401 and lipase at 5857. Ultrasound of the abdomen did show findings of sludge and stones with hydropic gallbladder. Currently being treated for possible gallstone pancreatitis with plan for cholecystectomy when medically stable. Nausea and vomiting worsened overnight and this morning with x-ray suggestive of ileus likely in the setting of acute uncomplicated pancreatitis. Current Visit: Yes Status: Acute Code(s): K85.90 - ACUTE PANCREATITIS WITHOUT NECROSIS OR INFECTION, UNSP SNOMED Code(s): 06606965 (2) Intractable nausea and vomiting Current Visit: Yes Status: Acute Code(s): R11.2 - NAUSEA WITH VOMITING, UNSPECIFIED SNOMED Code(s): 205113767 (3) Abdominal pain Current Visit: No Status: Acute Code(s): R10.9 - UNSPECIFIED ABDOMINAL PAIN SNOMED Code(s): 93960906 (4) Alcoholic liver disease Current Visit: No Status: Acute Code(s): K70.9 - ALCOHOLIC LIVER DISEASE, UNSPECIFIED SNOMED Code(s): 97641706 Plan: Supportive care Nothing by mouth except for ice chips X-ray of the abdomen ordered and suggestive of ileus, please discussed with the patient and nursing staff implanted for NG tube on low intermittent suction Fluid hydration Pain control Surgical service following Continue to follow CBC, CMP Continue diuresis with Lasix and Aldactone Continue treatment of encephalopathy with Xifaxan and lactulose which was switched to rectal Protonix changed to IV Continue antiemetic therapy Continue to monitor symptoms Thank you for allowing us to participate in the care of the patient we will continue to follow
[2020-02-16 15:36] LABS: Glucose,Whole Blood 147 mg/dL (75-99)
[2020-02-16 15:39] LABS: Basophils % (A) 0 %; Eosinophils % (A) 1 %; HCT 45.1 % (39.0-53.0); HGB 13.9 gm/dL (13.0-17.5); Hypochromasia Marked; Lymphocytes # (A) 0.3 k/uL (1.0-4.8); Lymphocytes % (A) 4 %; MCH 29.2 pg (25.0-35.0); MCHC 30.9 g/dL (31.0-37.0); MCV 94.8 fL (80.0-100.0); Monocytes # (A) 0.3 k/uL (0-1.0); Monocytes % (A) 4 %; Neutrophils # (A) 8.2 k/uL (1.3-7.7); Neutrophils % (A) 91 %; Platelet Count 301 k/uL (150-450); RBC 4.76 m/uL (4.30-5.90); RDW 15.8 % (11.5-15.5)
[2020-02-16 16:16] LABS: Albumin 4.6 g/dL (3.5-5.0); Calcium 10.3 mg/dL (8.4-10.2); Potassium 5.3 mmol/L (3.5-5.1); Total Bilirubin 0.8 mg/dL (0.2-1.3)
[2020-02-16 16:44] LABS: ABG Base Excess -17.4 mmol/L; ABG HCO3 11 mmol/L (21-25); ABG Oxygen Saturation 96.3 % (94-97); ABG PCO2 27 mmHg (35-45); ABG PO2 92 mmHg (83-108); ABG TCO2 12 mmol/L (19-24); Allen Test Performed? Yes
[2020-02-16] MEDS ORDERED: WATER IV SCH ×2 (17:00)
[2020-02-16] MEDS ORDERED: DEXTROSE 10% IV SCH ×2 (17:00)
[2020-02-16] MEDS ORDERED: SODIUM BICARB IV SCH ×2 (17:00)
[2020-02-16] MEDS: DEXTROSE 5% IN WATER 1,000 ML with SODIUM BICARB (1 MEQ/ML) 150 ML IV SCH (18:07)
--- NOTE | 2020-02-16 19:19 | P.PN ---
Progress Note - Text Progress Note Date: 02/16/20 Chief Complaint: Nausea vomiting History of presenting complaint: [Patient was seen by me in the ER] This is a pleasant 49-year-old patient of Dr. ortiz. Chronic stable medical conditions include alcoholic cirrhosis, portal hypertension, hyperlipidemia, peripheral neuropathy. EGD earlier this year showed a leg grade D distal esophagitis, large hiatal hernia, gastric antral vascular ectasia and and there was no esophageal varices. Patient now presents with nausea vomiting for 2 days. No blood in the vomitus. No fever no chills no cough. Normally has a bowel movement daily. Denies any abdominal pain. Patient also had recently foot wounds that have now healed. Tired rundown. Admitted with acute pancreatitis. Today-this morning-bouts of vomiting. Lethargic. Became coffee-ground emesis. Tired. Patient seen by Dr. Brito late afternoon. To call me. Decided to move the patient ICU. I called Dr. Brizuela from critical care for the same. Review of systems: Was done for constitutional, cardiovascular, GI, pulmonary. relevant finding as above Active Medications Folic Acid (Folic Acid) 1 mg PO DAILY [facility] Last Admin: 02/16/20 08:37 Dose: Not Given Documented by: Hydromorphone HCl (Dilaudid) 0.5 mg IVP Q3HR PRN PRN Reason: Pain Last Admin: 02/15/20 19:47 Dose: 0.5 mg Documented by: Sodium Bicarbonate 150 ml/ (Dextrose/Water) 1,150 mls @ 100 mls/hr IV .[id number] [facility] Last Admin: 02/16/20 18:07 Dose: 100 mls/hr Documented by: Lactulose (Cephulac) 200 gm RECTAL Q6HR [facility] [place] Last Admin: 02/16/20 18:08 Dose: 200 gm Documented by: Modafinil (Provigil) 200 mg PO AC-BID [facility] [place] Last Admin: 02/16/20 16:44 Dose: Not Given Documented by: Naloxone HCl (Narcan) 0.2 mg IV Q2M PRN PRN Reason: Opioid Reversal Patient's Own Med ( Armodafinil [Nuvigil ] 250 Mg) 250 mg PO DAILY [facility] [place] Last Admin: 02/16/20 08:37 Dose: Not Given Documented by: Patient's Own Med ( Buprenorphine Hcl [ Subutex] 8 Mg) 8 mg SUBLINGUAL ACHS [facility] [place] Last Admin: 02/16/20 16:43 Dose: Not Given Documented by: Nortriptyline HCl (Pamelor) 50 mg PO HS [facility] [place] Last Admin: 02/15/20 20:40 Dose: 50 mg Documented by: Ondansetron HCl (Zofran) 4 mg IVP Q6HR [facility] [place] Last Admin: 02/16/20 18:08 Dose: 4 mg Documented by: Pantoprazole Sodium (Protonix) 40 mg IVP BID [facility] [place] Pregabalin (Lyrica) 200 mg PO AC-TID [facility] Last Admin: 02/16/20 16:44 Dose: Not Given Documented by: Prochlorperazine Maleate (Compazine) 5 mg PO Q8HR PRN PRN Reason: Nausea And Vomiting Rifaximin (Xifaxan) 550 mg PO TID [facility] [place] Stop: 03/15/20 22:01 Last Admin: 02/16/20 16:22 Dose: Not Given Documented by: Spironolactone (Aldactone) 50 mg PO BID [facility] [place] Last Admin: 02/16/20 08:37 Dose: Not Given Documented by: Sucralfate (Carafate) 1 gm PO AC-TID [facility] [place] Last Admin: 02/16/20 16:44 Dose: Not Given Documented by: Thiamine HCl (Vitamin B-1) 100 mg PO DAILY [facility] [place] Last Admin: 02/16/20 08:38 Dose: Not Given Documented by: Trimethobenzamide HCl (Tigan) 200 mg IM Q6HR PRN PRN Reason: Nausea And Vomiting Last Admin: 02/16/20 05:10 Dose: 200 mg Documented by: Physical examination: VITAL SIGNS: 97.7, 105, 17, 105/64, 97% on room air GENERAL: Laying in bed, more tired EYES: Pupils equal. Conjunctiva normal. HEENT: External appearance of nose and ears normal, oral cavity dry. NECK: JVD not raised; masses not palpable. HEART: First and second heart sounds are normal; no edema. LUNGS: Respiratory rate normal; decreased breath sounds. ABDOMEN: Soft, epigastric tenderness, no guarding or rigidity, liver spleen not palpable, possible hepatomegaly. PSYCH: Answering questions but more lethargic INVESTIGATIONS, reviewed in the clinical context: White count 9 hemoglobin 13.9 potassium 5.3 bun 37 creatinine 1.43, ammonia 114 Previous testing White count 3.4 hemoglobin 12.7 pressure 4.5 creatinine 0.59 Lipase 817 COVID-19 PCR-not detected Abdominal ultrasound-gallbladder hydrops with dependent sludge or small stones and wall thickening. Hepatomegaly Chest x-ray film-grossly reviewed by me no obvious abnormality Assessment: -Acute pancreatitis, worsening, POA -Acute metabolic acidosis from above., POA -New onset of hepatic encephalopathy-today -Acute GI bleed with coffee-ground emesis -Abnormal gallbladder on ultrasound. Patient has no right upper quadrant tenderness. -Alcoholic cirrhosis -Portal hypertension -Diabetic peripheral neuropathy -Left foot wound secondary to neuropathy-healed -GERD -Large hiatal hernia -LA grade D distal esophagitis, - large hiatal hernia, -gastric antral vascular ectasia - Plan: -Earlier NG tube was ordered by Dr. Brito. Patient pulled out. Patient being transferred to the ICU. Spoke to Dr. Brizuela. And also [employer] for Dr. Brito. Repeat labs
[2020-02-16 19:44] LABS: Amylase 577 U/L (30-110)
[2020-02-16] MEDS: NORTRIPTYLINE 25 MG CAP PO SCH (20:17)
[2020-02-16] MEDS: PANTOPRAZOLE 40 MG/10 ML VIAL IVP SCH (20:33)
[2020-02-17] MEDS: TRIMETHOBENZAMIDE 100 MG/ML 2 ML VIAL IM PRN (00:23)
[2020-02-17] MEDS: ONDANSETRON 4 MG/2 ML VIAL IVP SCH ×4 (00:24→18:10)
[2020-02-17] MEDS: LACTULOSE 200 GM/300 ML (FROM 1/2 GAL JUG) RECTAL SCH ×4 (00:47→18:10)
[2020-02-17] MEDS: DEXTROSE 5% IN WATER 1,000 ML with SODIUM BICARB (1 MEQ/ML) 150 ML IV SCH ×2 (05:00→16:13)
[2020-02-17 05:20] LABS: Anisocytosis Slight; Basophils % (A) 0 %; Eosinophils % (A) 0 %; HCT 41.4 % (39.0-53.0); HGB 13.4 gm/dL (13.0-17.5); Hypochromasia Moderate; Lymphocytes # (A) 0.4 k/uL (1.0-4.8); Lymphocytes % (A) 3 %; MCH 29.7 pg (25.0-35.0); MCHC 32.5 g/dL (31.0-37.0); MCV 91.4 fL (80.0-100.0); Mean Platelet Volume 7.9; Monocytes # (A) 0.5 k/uL (0-1.0); Monocytes % (A) 4 %; Neutrophils # (A) 10.8 k/uL (1.3-7.7); Neutrophils % (A) 92 %; Platelet Count 263 k/uL (150-450); RBC 4.53 m/uL (4.30-5.90); RDW 16.2 % (11.5-15.5); WBC 11.7 k/uL (3.8-10.6)
[2020-02-17 05:31] LABS: Albumin 4.4 g/dL (3.5-5.0); Calcium 10.3 mg/dL (8.4-10.2); Potassium 4.6 mmol/L (3.5-5.1); Total Bilirubin 0.8 mg/dL (0.2-1.3); Total Protein 7.8 g/dL (6.3-8.2)
[2020-02-17] MEDS: PANTOPRAZOLE 40 MG/10 ML VIAL IVP SCH ×2 (08:23→21:02)
[2020-02-17] MEDS: RIFAXIMIN 550 MG TABLET PO SCH ×3 (08:24→21:02)
[2020-02-17] MEDS: PREGABALIN 100 MG CAP PO SCH ×3 (08:24→18:10)
[2020-02-17] MEDS: BUPRENORPHINE HCL 8 MG SUBLINGUAL SCH ×4 (08:24→20:44)
[2020-02-17] MEDS: FOLIC ACID 1 MG TAB PO SCH (08:24)
[2020-02-17] MEDS: SPIRONOLACTONE 25 MG TAB PO SCH ×2 (08:24→21:01)
[2020-02-17] MEDS: MODAFINIL 200 MG TAB PO SCH ×2 (08:24→18:10)
[2020-02-17] MEDS: SUCRALFATE 1 GM TAB PO SCH ×3 (08:24→18:10)
[2020-02-17] MEDS: THIAMINE 100 MG TAB PO SCH (08:24)
[2020-02-17] MEDS: ARMODAFINIL 250 MG PO SCH (08:25)
[2020-02-17] MEDS ORDERED: SODIUM CHLORIDE 0.9% 1,000 ML IV ONE ×2 (08:40→10:12)
--- NOTE | 2020-02-17 12:08 | P.PN ---
Progress Note - Text Progress Note Date: 02/17/20 The patient was transferred to the ICU for coffee-ground emesis yesterday. His hemoglobin is stable in the 13 range. His lipase is still with 3000 range. The patient is encephalopathic state he is receiving lactulose. His abdomen soft. There is minimal tenderness. Gallstone pancreas. Patient undergo laparoscopic cholecystectomy when stable. The patient will be observed for his upper GI bleed.
--- NOTE | 2020-02-17 12:39 | CONS ---
CONSULTATION PULMONARY/CRITICAL CARE CONSULTATION: DATE OF CONSULTATION: 02/17/2020 REASON FOR CONSULTATION: ICU management. This is a 49-year-old male who apparently presented to the emergency department on February 13. He apparently has a history of liver cirrhosis secondary to previous heavy alcohol abuse, and apparently presents to the emergency room for complaints of vomiting, epigastric discomfort, diffuse abdominal pain, and nausea for 4 days prior to admission. He apparently was quite dehydrated when he presented and apparently had not eaten any or drank anything for about 4 days prior to admission. Apparently on presentation, he admitted to the ER staff that he had nothing to drink in the way of alcohol and could not stop vomiting. He apparently denied any cough or phlegm production. He denied chest pain and chest pressure, he denied shortness of breath, chest congestion, and fever. Again, he denies drinking alcohol for a number of years now. He does admit to some abdominal distention. I was consulted yesterday because the patient apparently was having GI bleed suspected to be upper GI bleed, changes in his mental status and shortness of breath. He was moved to the ICU. Currently, he is on room air. I did place him on D5W 3 amps of bicarb at 100 mL an hour for anion gap metabolic acidosis. He came to the ICU yesterday on February 15. Again at that time, he had upper GI bleed, shortness of breath, metabolic acidosis, and apparently has had a couple NG tubes placed, but has pulled them all out. He has also been diagnosed with acute pancreatitis. PAST MEDICAL HISTORY: Positive for GERD, alcoholic liver disease, pneumonia, neuropathy. . HOME MEDICATIONS: Include folic acid, lactulose, Provigil, Subutex, Lasix, Pamelor, Rifaximin, Aldactone, thiamine, Keflex, Protonix, Lyrica, and Carafate. ALLERGIES: Denied. Past medical history as mentioned includes gastroesophageal reflux disease, alcoholic liver disease, pneumonia, history of previous alcohol abuse, ascites, numerous paracentesis abdominis, mental status changes, acute pancreatitis, chronic anemia, hiatal hernia, neuropathy, and chronic back pain. SURGICAL HISTORY: Includes among other things adenoidectomy, back surgery, hernia repair, tonsillectomy, and open-heart procedure to remove glass from his heart, apparently when he fell through a glass door, low back surgery, right inguinal hernia repair, EGD, and an incision and drainage of a left foot wound. SOCIAL HISTORY: Negative for tobacco use. He currently denies any alcohol. He was a heavy drinker in the past. Denies any illicit drug use. FAMILY HISTORY: Positive for a father with dementia. He also has a mother with a history of diabetes. REVIEW OF SYSTEMS: The patient is a very poor historian. Really not able to give much history other than the fact he is just not feeling well. Currently denies any chest pain or pressure. Denies any shortness of breath. He is not receiving any supplemental oxygen. His abdominal symptoms have subsided and he is not complaining of any pain, cramping, or vomiting. The rest of his review of systems is unremarkable. Current vital signs are reviewed. Temperature is 98, heart rate 100, respiratory rate 25, blood pressure 141/89 mean 106, room air saturation 96%. Appears in no acute distress HEENT: Examination is grossly unremarkable. No nasal O2 noted. No NG tube, which he pulled out. NECK: Supple. Full range of motion. No adenopathy. Neck veins are flat. CARDIOVASCULAR: Examination reveals regular rhythm and rate. Heart rate about 90 beats per minute. S1, S2 normal. There is no murmur. No S3, S4, or murmur. LUNGS: Clear, breath sounds equal. No wheezes, rhonchi, or crackles. ABDOMEN: Little distended. No masses on palpation. No tenderness on palpation. EXTREMITIES: Intact. No edema. SKIN: Without rash. NEUROLOGIC: Examination is brief but nonfocal. LABS: Reviewed. White count 11.7, hemoglobin 13.4, hematocrit 41.4, platelet count 263,000. Blood gases from yesterday show a pO2 of 92, pCO2 of 27, and a pH of 7.2. This is on 36% oxygen. The blood gases are consistent with a metabolic acidosis, anion gap 1 at that. Sodium 145, potassium 4.6, chloride 107, CO2 is 15, anion gap is 23 down from 26, BUN and creatinine were 50 and 1.51. Calcium is 10.3, alkaline phosphatase 188, ammonia level 41, down from 114, amylase 577 yesterday, 45 today and lipase is 3305 yesterday, 3220 today. Microbiology is pending or negative. A belly film from yesterday showed nonspecific gas pattern, possibly consistent with an ileus. A chest x-ray showed no evidence of acute pulmonary disease. Abdominal ultrasound showed hepatomegaly, gallbladder hydrops, and limited visualization of the pancreas. Medications are reviewed. Currently, he is on Nuvigil, Subutex, folic acid, Dilaudid, lactulose, Proventil, Narcan, Pamelor, Zofran, Protonix, Lyrica, Compazine, Xifaxan, Aldactone, Carafate, thiamine, and Tigan. ASSESSMENT: 1. Acute pancreatitis, of unclear etiology. 2. Previous history of severe alcohol abuse with alcoholic liver disease and cirrhosis. 3. History of gastroesophageal reflux disease. 4. Prior history of pneumonia. 5. History of neuropathy. 6. History of chronic anemia. 7. Gastrointestinal bleed. 8. History of hiatal hernia. 9. Previous history of ascites with prior paracentesis abdominis. 10.History of chronic back pain. 11.Anion gap metabolic acidosis. PLAN: The patient seems to be doing relatively well today. His acidosis is improved. He is not demonstrating any respiratory difficulty or distress. Not wearing any supplemental oxygen. Hemodynamically, he is stable. Will continue to follow closely. His labs are reviewed. Medications are reviewed. Everything appears to be appropriate. No additional recommendations are made at this time. MMODL / IJN: [id number] /
--- NOTE | 2020-02-17 14:05 | XR ---
EXAMINATION TYPE: XR KUB DATE OF EXAM: 02/17/2020 1:53 PM CLINICAL HISTORY: Abdominal pain and follow-up ileus. TECHNIQUE: Single supine KUB image of the abdomen is obtained. COMPARISON: 02/16/2020. FINDINGS: Air is seen throughout numerous large and small bowel loops with small bowel loops mildly d ilated up to 3.7 cm. Air is noted in the rectum. Suboptimal visualization of the lateral abdomen from patient body habitus. Lung bases are well aerated. Mild levoscoliosis of the lumbar spine may be pos itional. Supine examination limits evaluation for pneumoperitoneum. IMPRESSION: Mild gaseous dilatation of multiple loops of small bowel minimally progressed from 02/16/20 20. Ileus is again favored. Continued follow-up progress exams are recommended.
--- NOTE | 2020-02-17 14:27 | P.PN ---
Progress Note - Text Progress Note Date: 02/17/20 Chief Complaint: Nausea vomiting History of presenting complaint: [Patient was seen by me in the ER] This is a pleasant 49-year-old patient of Dr. ortiz. Chronic stable medical conditions include alcoholic cirrhosis, portal hypertension, hyperlipidemia, peripheral neuropathy. EGD earlier this year showed a leg grade D distal esophagitis, large hiatal hernia, gastric antral vascular ectasia and and there was no esophageal varices. Patient now presents with nausea vomiting for 2 days. No blood in the vomitus. No fever no chills no cough. Normally has a bowel movement daily. Denies any abdominal pain. Patient also had recently foot wounds that have now healed. Tired rundown. Admitted with acute pancreatitis.on February 15 patient started vomiting repeatedly. Had coffee-ground emesis. Became encephalopathic. Moved to the ICU. Twice NG tube was placed that he took out. Placed on rectal lactulose Today-ICU. Pain on rectal lactulose. More awake. No further vomiting. Nothing by mouth. Ammonia started to come down.on IV fluids and IV bicarbonate drip. Review of systems: Was done for constitutional, cardiovascular, GI, pulmonary. relevant finding as above Active Medications Folic Acid (Folic Acid) 1 mg PO DAILY COUNTS INCLUDE 234 BEDS AT THE [facility] Last Admin: 02/17/20 08:24 Dose: 1 mg Documented by: Hydromorphone HCl (Dilaudid) 0.5 mg IVP Q3HR PRN PRN Reason: Pain Last Admin: 02/15/20 19:47 Dose: 0.5 mg Documented by: Sodium Bicarbonate 150 ml/ (Dextrose/Water) 1,150 mls @ 100 mls/hr IV .[id number] COUNTS INCLUDE 234 BEDS AT THE [facility] Last Admin: 02/17/20 05:00 Dose: 100 mls/hr Documented by: Lactulose (Cephulac) 200 gm RECTAL Q6HR COUNTS INCLUDE 234 BEDS AT THE [facility] Last Admin: 02/17/20 12:37 Dose: 200 gm Documented by: Modafinil (Provigil) 200 mg PO AC-BID COUNTS INCLUDE 234 BEDS AT THE [facility] Last Admin: 02/17/20 08:24 Dose: 200 mg Documented by: Naloxone HCl (Narcan) 0.2 mg IV Q2M PRN PRN Reason: Opioid Reversal Patient's Own Med ( Armodafinil [Nuvigil ] 250 Mg) 250 mg PO DAILY COUNTS INCLUDE 234 BEDS AT THE [facility] Last Admin: 05/08/20 08:25 Dose: Not Given Documented by: Patient's Own Med ( Buprenorphine Hcl [ Subutex] 8 Mg) 8 mg SUBLINGUAL ACHS COUNTS INCLUDE 234 BEDS AT THE [facility] Last Admin: 02/17/20 12:13 Dose: Not Given Documented by: Nortriptyline HCl (Pamelor) 50 mg PO HS COUNTS INCLUDE 234 BEDS AT THE [facility] Last Admin: 02/16/20 20:17 Dose: Not Given Documented by: Ondansetron HCl (Zofran) 4 mg IVP Q6HR COUNTS INCLUDE 234 BEDS AT THE [facility] Last Admin: 02/17/20 12:08 Dose: 4 mg Documented by: Pantoprazole Sodium (Protonix) 40 mg IVP BID COUNTS INCLUDE 234 BEDS AT THE [facility] Last Admin: 02/17/20 08:23 Dose: 40 mg Documented by: Pregabalin (Lyrica) 200 mg PO AC-TID COUNTS INCLUDE 234 BEDS AT THE [facility] Last Admin: 02/17/20 12:08 Dose: 200 mg Documented by: Prochlorperazine Maleate (Compazine) 5 mg PO Q8HR PRN PRN Reason: Nausea And Vomiting Rifaximin (Xifaxan) 550 mg PO TID COUNTS INCLUDE 234 BEDS AT THE [facility] Stop: 03/15/20 22:01 Last Admin: 02/17/20 08:24 Dose: 550 mg Documented by: Spironolactone (Aldactone) 50 mg PO BID COUNTS INCLUDE 234 BEDS AT THE [facility] Last Admin: 02/17/20 08:24 Dose: 50 mg Documented by: Sucralfate (Carafate) 1 gm PO AC-TID COUNTS INCLUDE 234 BEDS AT THE [facility] Last Admin: 02/17/20 12:08 Dose: 1 gm Documented by: Thiamine HCl (Vitamin B-1) 100 mg PO DAILY COUNTS INCLUDE 234 BEDS AT THE [facility] Last Admin: 02/17/20 08:24 Dose: 100 mg Documented by: Trimethobenzamide HCl (Tigan) 200 mg IM Q6HR PRN PRN Reason: Nausea And Vomiting Last Admin: 02/17/20 00:23 Dose: 200 mg Documented by: Physical examination: VITAL SIGNS: 98, 99, 22, 127/86, 93% on room air GENERAL:propped up in bed, more awake today EYES: Pupils equal. Conjunctiva pale. HEENT: External appearance of nose and ears normal, oral cavity dry. NECK: JVD not raised; masses not palpable. HEART: First and second heart sounds are normal; no edema. LUNGS: Respiratory rate normal; decreased breath sounds. ABDOMEN: Soft, epigastric tenderness, no guarding or rigidity, liver spleen not palpable, possible hepatomegaly. PSYCH: answering questions INVESTIGATIONS, reviewed in the clinical context: white count 11.7 hemoglobin 13.4 progression 4.6 bun 50 creatinine 1.51 white count 15amylase 485 lipase 3220 Previous testing White count 3.4 hemoglobin 12.7 pressure 4.5 creatinine 0.59 Lipase 817 COVID-19 PCR-not detected Abdominal ultrasound-gallbladder hydrops with dependent sludge or small stones and wall thickening. Hepatomegaly Chest x-ray film-grossly reviewed by me no obvious abnormality ammonia 114 Assessment: -Acute pancreatitis, , POA-slow to respond -Acute metabolic acidosis from above., POA-slow to respond -New onset of hepatic encephalopathy-improving -Acute GI bleed with coffee-ground emesis-improving -Abnormal gallbladder on ultrasound. Patient has no right upper quadrant tenderness. -Alcoholic cirrhosis -Portal hypertension -Diabetic peripheral neuropathy -Left foot wound secondary to neuropathy-healed -GERD -Large hiatal hernia -LA grade D distal esophagitis, - large hiatal hernia, -gastric antral vascular ectasia - Plan: patient remains in ICU. He does NG tube earlier again. On lactulose enema. More awake. Hemodynamically stable. Follow closely. Still acidotic.
[2020-02-17] MEDS: NORTRIPTYLINE 25 MG CAP PO SCH (21:02)
[2020-02-18] MEDS: ONDANSETRON 4 MG/2 ML VIAL IVP SCH ×5 (00:05→23:27)
[2020-02-18] MEDS: LACTULOSE 20 GM/30 ML CUP PO SCH ×4 (00:05→22:32)
[2020-02-18] MEDS: DEXTROSE 5% IN WATER 1,000 ML with SODIUM BICARB (1 MEQ/ML) 150 ML IV SCH (03:53)
[2020-02-18] MEDS: BUPRENORPHINE HCL 8 MG SUBLINGUAL SCH ×4 (04:54→21:47)
[2020-02-18 05:11] LABS: Anisocytosis Slight; Basophils % (A) 0 %; Eosinophils # (A) 0.2 k/uL (0-0.7); Eosinophils % (A) 4 %; HGB 11.2 gm/dL (13.0-17.5); Lymphocytes # (A) 0.6 k/uL (1.0-4.8); Lymphocytes % (A) 9 %; MCH 28.7 pg (25.0-35.0); MCHC 31.9 g/dL (31.0-37.0); MCV 89.9 fL (80.0-100.0); Mean Platelet Volume 7.8; Monocytes # (A) 0.3 k/uL (0-1.0); Monocytes % (A) 4 %; Neutrophils # (A) 5.4 k/uL (1.3-7.7); Neutrophils % (A) 82 %; Platelet Count 163 k/uL (150-450); RDW 16.4 % (11.5-15.5); WBC 6.6 k/uL (3.8-10.6)
[2020-02-18 05:16] LABS: ALT 20 U/L (4-49); AST 51 U/L (17-59); African American GFR (CKD) >90 (>60 ml/min/1.73 sqM); Albumin 3.7 g/dL (3.5-5.0); Alkaline Phosphatase 158 U/L (38-126); Amylase 242 U/L (30-110); Anion Gap 8 mmol/L; Blood Urea Nitrogen 21 mg/dL (9-20); Calcium 9.3 mg/dL (8.4-10.2); Carbon Dioxide 32 mmol/L (22-30); Chloride 106 mmol/L (98-107); Glucose 205 mg/dL (74-99); Non-African American GFR(CKD) >90 (>60 ml/min/1.73 sqM); Potassium 3.1 mmol/L (3.5-5.1); Sodium 146 mmol/L (137-145); Total Bilirubin 0.6 mg/dL (0.2-1.3); Total Protein 6.8 g/dL (6.3-8.2)
[2020-02-18] MEDS: MODAFINIL 200 MG TAB PO SCH ×2 (06:31→16:35)
[2020-02-18] MEDS: SUCRALFATE 1 GM TAB PO SCH ×3 (06:32→16:35)
[2020-02-18] MEDS: PREGABALIN 100 MG CAP PO SCH ×3 (06:32→16:35)
[2020-02-18] MEDS: POTASSIUM BICARBONATE/CIT AC 20 MEQ TABLET.EFF NG-TUBE SCH ×2 (06:32→08:37)
--- NOTE | 2020-02-18 06:50 | P.PN ---
Subjective Progress Note Date: 02/17/20 Principal diagnosis: Alcoholic cirrhosis, gallstone pancreatitis, nausea and vomiting, esophagitis Patient seen lying in bed in the ICU. Less nausea and vomiting. Asking for a l iquid diet. Objective - Vital Signs Vital signs: Vital Signs Temp 98.1 F 02/18/20 04:00 Pulse 74 02/18/20 05:00 Resp 14 02/18/20 05:00 BP 138/64 02/18/20 05:00 Pulse Ox 92 L 02/18/20 05:00 Intake & Output 02/17/20 02/17/20 02/18/20 06:59 18:59 06:59 Intake Total 1100 3740 1720 Output Total 970 2200 1005 Balance 130 1540 715 Weight 112 kg 112 kg 110.7 kg Intake: IV 1100 1200 1000 Dextrose 5% in Water 1, 1100 1200 1000 000 ml @ 100 mls/hr IV . [id number] GRISELDA with Sodium Bicarb (1 Meq/ml) 150 ml Rx#:[id number] Intake, IV Titration 2000 Amount Sodium Chloride 0.9% 1, 2000 000 ml @ 999 mls/hr IV . Q1H1M ONE Rx#:[id number] Oral 540 720 Output: Urine 770 2200 1005 Emesis 200 Other: Voiding Method Indwelling Catheter Indwelling Catheter Indwelling Catheter # Bowel Movements 1 - Exam On physical examination, patient appears comfortable in no apparent distress. HEAD: Normocephalic, atraumatic. EYES: No scleral icterus. No conjunctival injection. MOUTH: No lesions, tongue midline. NECK: Trachea midline, no gross abnormalities. ABDOMEN: Soft, obese, mildly tender to palpation. Bowel sounds are positive. No organomegaly. No guarding or rigidity. EXTREMITIES: No pedal edema. SKIN: No rashes, no jaundice. NEUROLOGIC: Alert and oriented to person, no asterixis noted. No focal deficits. - Labs CBC & Chem 7: 02/18/20 04:47 02/18/20 04:47 Labs: Abnormal Lab Results - Last 24 Hours (Table) 02/18/20 02/18/20 Range/Units 04:47 04:47 RBC 3.90 L (4.30-5.90) m/uL Hgb 11.2 L (13.0-17.5) gm/dL Hct 35.0 L (39.0-53.0) % RDW 16.4 H (11.5-15.5) % Lymphocytes # 0.6 L (1.0-4.8) k/uL Sodium 146 H (137-145) mmol/L Potassium 3.1 L (3.5-5.1) mmol/L Carbon Dioxide 32 H (22-30) mmol/L BUN 21 H (9-20) mg/dL Creatinine 0.56 L (0.66-1.25) mg/dL Glucose 205 H (74-99) mg/dL Alkaline Phosphatase 158 H (38-126) U/L Amylase 242 H (30-110) U/L Lipase 1704 H (23-300) U/L Assessment and Plan (1) Pancreatitis Narrative/Plan: 49-year-old with multiple medical comorbidities including decompensated alcoholic liver disease with encephalopathy and ascites who presented due to nausea vomiting and abdominal pain. Found to have an acute elevation in amylase at 1401 and lipase at 5857. Ultrasound of the abdomen did show findings of slu dge and stones with hydropic gallbladder. Currently being treated for possible gallstone pancreatitis with plan for cholecystectomy when medically stable. Nausea and vomiting worsened overnight and this morning with x-ray suggestive of ileus likely in the setting of acute uncomplicated pancreatitis. Current Visit: Yes Status: Acute Code(s): K85.90 - ACUTE PANCREATITIS WITHOUT NECROSIS OR INFECTION, UNSP SNOMED Code(s): 43298083 (2) Intractable nausea and vomiting Current Visit: Yes Status: Acute Code(s): R11.2 - NAUSEA WITH VOMITING, UNSPECIFIED SNOMED Code(s): 947649237 (3) Abdominal pain Current Visit: No Status: Acute Code(s): R10.9 - UNSPECIFIED ABDOMINAL PAIN SNOMED Code(s): 04728045 (4) Alcoholic liver disease Current Visit: No Status: Acute Code(s): K70.9 - ALCOHOLIC LIVER DISEASE, UNSPECIFIED SNOMED Code(s): 28579315 Plan: Supportive care Okay for liquid diet as tolerated Pain control Surgical service following Continue to follow CBC, CMP Continue diuresis with Lasix and Aldactone Continue treatment of encephalopathy with Xifaxan and lactulose which was switched to rectal while nothing by mouth, but can be given orally once patient is tolerating liquids Protonix changed to IV Continue antiemetic therapy Continue to monitor symptoms Thank you for allowing us to participate in the care of the patient we will continue to follow
[2020-02-18] MEDS: RIFAXIMIN 550 MG TABLET PO SCH ×3 (08:37→21:47)
[2020-02-18] MEDS: FOLIC ACID 1 MG TAB PO SCH (08:37)
[2020-02-18] MEDS: PANTOPRAZOLE 40 MG/10 ML VIAL IVP SCH ×2 (08:37→21:47)
[2020-02-18] MEDS: SPIRONOLACTONE 25 MG TAB PO SCH ×2 (08:37→21:47)
[2020-02-18] MEDS: THIAMINE 100 MG TAB PO SCH (08:38)
[2020-02-18] MEDS: ARMODAFINIL 250 MG PO SCH (08:38)
--- NOTE | 2020-02-18 12:18 | P.PN ---
Subjective This is a pleasant 49-year-old patient of Dr. ortiz. Chronic stable medical conditions include alcoholic cirrhosis, portal hypertension, hyperlipidemia, peripheral neuropathy. EGD earlier this year showed a leg grade D distal esophagitis, large hiatal hernia, gastric antral vascular ectasia and and there was no esophageal varices. Patient now presents with nausea vomiting for 2 days. No blood in the vomitus. No fever no chills no cough. Normally has a bowel movement daily. Denies any abdominal pain. Patient also had recently foot wounds that have now healed. Tired rundown. Admitted with acute pancreatitis.on February 15 patient started vomiting repeatedly. Had coffee-ground emesis. Became encephalopathic. Moved to the ICU. Twice NG tube was placed that he took out. Placed on rectal lactulose Today-ICU. Pain on rectal lactulose. More awake. No further vomiting. Nothing by mouth. Ammonia started to come down.on IV fluids and IV bicarbonate drip. 02/18/2020, patient is seen and examined today in the ICU Patient was admitted for gallstone pancreatitis and hepatic encephalopathy in view of history of alcoholic liver cirrhosis, his last drink was about 5 days ago as per patient. Patient today is more awake and oriented to time place and person, he was updated why he was in the hospital. He denies chest pain or abd ominal pain. No dyspnea or cough and created. He tolerated his diet with no nausea vomiting. He is passing gas and he had one bowel movement yesterday. NG tube was taking of for his ileus which looks improving, he is hemodynamically stable. His leukocytosis came back to normal at 6.6K, creatinine back to normal at 0.5. 111 back to normal at 27 and lipase down to 1704. Patient is being downgraded to general medical floor CONSTITUTIONAL: No fever, no malaise, no fatigue. HEENT: No recent visual problems or hearing problems. Denied any sore throat. CARDIOVASCULAR: No orthopnea, PND, no palpitations, no syncope. PULMONARY: No shortness of breath, no cough, no hemoptysis. GASTROINTESTINAL no nausea, no vomiting, no abdominal pain. Normoactive bowel sounds. NEUROLOGICAL: No headaches, no weakness, no numbness. HEMATOLOGICAL: Denies any bleeding or petechiae. GENITOURINARY: Denies any burning micturition, frequency, or urgency. MUSCULOSKELETAL/RHEUMATOLOGICAL: Denies any joint pain, swelling, or any muscle pain. ENDOCRINE: Denies any polyuria or polydipsia. Active Medications Generic Name Dose Route Start Last Admin Trade Name Freq PRN Reason Stop Dose Admin Folic Acid 1 mg 02/15/20 09:00 02/18/20 08:37 Folic Acid PO 1 mg DAILY GRISELDA Administration Hydromorphone HCl 0.5 mg 02/15/20 19:27 02/15/20 19:47 Dilaudid IVP 0.5 mg Q3HR PRN Administration Pain Lactulose 20 gm 02/18/20 00:00 02/18/20 08:38 Cephulac PO 20 gm Q8H GRISELDA Administration Modafinil 200 mg 02/15/20 17:30 02/18/20 06:31 Provigil PO 200 mg AC-BID GRISELDA Administration Naloxone HCl 0.2 mg 02/14/20 14:05 Narcan IV Q2M PRN Opioid Reversal Patient's Own Med ( 250 mg 02/15/20 09:00 02/18/20 08:38 Armodafinil [Nuvigil PO Not Given ] 250 Mg) DAILY GRISELDA Patient's Own Med ( 8 mg 02/15/20 12:30 02/18/20 04:54 Buprenorphine Hcl [ SUBLINGUAL 8 mg Subutex] 8 Mg) ACHS GRISELDA Administration Nortriptyline HCl 50 mg 02/14/20 21:00 02/17/20 21:02 Pamelor PO 50 mg HS GRISELDA Administration Ondansetron HCl 4 mg 02/15/20 12:00 02/18/20 05:10 Zofran IVP 4 mg Q6HR GRISELDA Administration Pantoprazole Sodium 40 mg 02/16/20 21:00 02/18/20 08:37 Protonix IVP 40 mg BID GRISELDA Administration Pregabalin 200 mg 02/14/20 20:32 02/18/20 06:32 Lyrica PO 200 mg AC-TID GRISELDA Administration Prochlorperazine Maleate 5 mg 02/16/20 04:54 Compazine PO Q8HR PRN Nausea And Vomiting Rifaximin 550 mg 02/14/20 22:00 02/18/20 08:37 Xifaxan PO 03/15/20 22:01 550 mg TID GRISELDA Administration Sodium Chloride 10 ml 02/18/20 21:00 Saline Flush IV BID GRISELDA Spironolactone 50 mg 02/14/20 21:00 02/18/20 08:37 Aldactone PO 50 mg BID GRISELDA Administration Sucralfate 1 gm 02/15/20 07:30 02/18/20 06:32 Carafate PO 1 gm AC-TID GRISELDA Administration Thiamine HCl 100 mg 02/15/20 09:00 02/18/20 08:38 Vitamin B-1 PO 100 mg DAILY GRISELDA Administration Trimethobenzamide HCl 200 mg 02/16/20 04:54 02/17/20 00:23 Tigan IM 200 mg Q6HR PRN Administration Nausea And Vomiting Objective - Vital Signs Vital signs: Vital Signs Temp 98.2 F 02/18/20 08:00 Pulse 99 02/18/20 10:00 Resp 20 02/18/20 10:00 BP 121/80 02/18/20 09:00 Pulse Ox 91 L 02/18/20 09:00 Intake & Output 02/17/20 02/18/20 02/18/20 18:59 06:59 18:59 Intake Total 3740 2140 700 Output Total 2200 1170 200 Balance 1540 970 500 Weight 112 kg 110.7 kg Intake: IV 1200 1300 200 Dextrose 5% in Water 1, 1200 1300 200 000 ml @ 100 mls/hr IV . [id number] GRISELDA with Sodium Bicarb (1 Meq/ml) 150 ml Rx#:[id number] Intake, IV Titration 2000 Amount Sodium Chloride 0.9% 1, 2000 000 ml @ 999 mls/hr IV . Q1H1M ONE Rx#:[id number] Oral 540 840 500 Output: Urine 2200 1170 200 Other: Voiding Method Indwelling Catheter Indwelling Catheter Indwelling Catheter # Bowel Movements 1 1 - Exam GENERAL: The patient is alert and oriented x3, not in any acute distress. Well developed, well nourished. HEENT: Pupils are round and equally reacting to light. EOMI. No scleral icterus. No conjunctival pallor. Normocephalic, atraumatic. No pharyngeal erythema. No thyromegaly. CARDIOVASCULAR: S1 and S2 present. No murmurs, rubs, or gallops. PULMONARY: Chest is clear to auscultation, no wheezing or crackles. ABDOMEN: Soft, nontender, nondistended, normoactive bowel sounds. No palpable organomegaly. MUSCULOSKELETAL: No joint swelling or deformity. EXTREMITIES: No cyanosis, clubbing, or pedal edema. NEUROLOGICAL: Gross neurological examination did not reveal any focal deficits. SKIN: No rashes. no petechiae. - Labs CBC & Chem 7: 02/18/20 04:47 02/18/20 04:47 Labs: Abnormal Lab Results - Last 24 Hours (Table) 02/18/20 02/18/20 Range/Units 04:47 04:47 RBC 3.90 L (4.30-5.90) m/uL Hgb 11.2 L (13.0-17.5) gm/dL Hct 35.0 L (39.0-53.0) % RDW 16.4 H (11.5-15.5) % Lymphocytes # 0.6 L (1.0-4.8) k/uL Sodium 146 H (137-145) mmol/L Potassium 3.1 L (3.5-5.1) mmol/L Carbon Dioxide 32 H (22-30) mmol/L BUN 21 H (9-20) mg/dL Creatinine 0.56 L (0.66-1.25) mg/dL Glucose 205 H (74-99) mg/dL Alkaline Phosphatase 158 H (38-126) U/L Amylase 242 H (30-110) U/L Lipase 1704 H (23-300) U/L Assessment and Plan Assessment: -Acute pancreatitis, secondary to gallstone disease. Improving. He is off IV fluids for now. Patient is followed closely by GI team and surgery team -Hepatic encephalopathy, improved and patient mentation is back to normal. Ammonia level was normal. -possible Acute GI bleed with coffee-ground emesis-improving. Hemoglobin is stable. Patient's father closely by GI team -hydrops gallbladder on ultrasound, With a small stones and sludge. Patient has no right upper quadrant tenderness.Surgery team on the case -Alcoholic cirrhosis. Last alcoholic drink was 5 years ago as per patient -Portal hypertension -Diabetic peripheral neuropathy -Left foot wound secondary to neuropathy-healed -GERD -Large hiatal hernia -LA grade D distal esophagitis, - large hiatal hernia, -gastric antral vascular ectasia DVT prophylaxis: Mechanical, noted Impression for possible GI bleed GI prophylaxis Protonix
--- NOTE | 2020-02-18 12:24 | P.PN ---
Progress Note - Text Progress Note Date: 02/18/20 The patient is more awake today. His encephalopathy is improved. He has some mild epigastric pain. His lipase is in the 1700 range. On exam is lesser stable. Abdomen soft there is mild epigastric tenderness. Resolving gallstone hepatitis. Patient will be scheduled for laparoscopic cholecystectomy when medically stable. Patient's had no further significant upper GI bleed. Patient will be closely observed.
--- NOTE | 2020-02-18 12:56 | PN ---
PROGRESS NOTE PULMONARY/CRITICAL CARE PROGRESS NOTE: DATE OF SERVICE: 02/18/2020 This is a patient who we saw yesterday in consultation. We saw him for acute pancreatitis, a prior history of severe alcohol abuse with alcoholic liver disease and cirrhosis, history of gastroesophageal reflux and history of upper gastrointestinal bleed, pneumonia, neuropathy, and a prior history of severe ascites requiring prior paracentesis abdominis. Currently, the patient is doing much better. He is on room air. We added a D5W with 3 amps of bicarbonate IV yesterday at 100 mL an hour. I am happy to report that his metabolic acidosis is resolved. He is feeling much better. He gives a thumbs up. The patient could be transferred out of the ICU. He denies any chest pain or pressure. He is not coughing or vomiting up any blood. He is not having abdominal pain or abdominal discomfort. There is no nausea, vomiting or diarrhea. The nurse feels like he is very stable for transfer. PHYSICAL EXAMINATION: Current vital signs are reviewed. Temperature 98.2, heart rate 85, respiratory rate 20, blood pressure 121/80, mean 93, room air saturation 93%-94%. Appears in no acute distress. HEENT: Examination is grossly unremarkable. Mucous membranes are moist. No nasal O2 noted. NECK: Supple. Full range of motion. There is no adenopathy, thyromegaly or neck vein distention. CARDIOVASCULAR: Examination reveals regular rhythm rate. Heart rate 85 beats per minute. S1, S2 normal. LUNGS: Relatively clear. Breath sounds equal. No wheezes, rhonchi, or crackles. ABDOMEN is mildly distended. There may be a mild fluid wave. No tenderness on palpation. Bowel sounds are noted. EXTREMITIES are intact. No cyanosis, clubbing, or edema. SKIN: Without rash. NEUROLOGIC: Weak but nonfocal. LABS: Reviewed. White count down to 6.6, hemoglobin 11.2, hematocrit 35.0, platelet count 163,000. Sodium 146, potassium 3.1, chloride 106, CO2 is 32 up from 15, anion gap is 8 and it was previously 23. BUN and creatinine have improved from 50 and 1.51 to 21 and 0.56. He was profoundly dehydrated. The rest of the labs look pretty good. Amylase has gone down to 242 from 485 and lipase is reduced down to 1704 from 3228. Microbiology is negative or pending. No recent chest x-rays to report. Medications are reviewed. Everything appears to be appropriate. ASSESSMENT: 1. Acute pancreatitis of unclear etiology. The patient denies drinking alcohol. 2. Prior history of severe alcohol abuse with alcoholic liver disease and cirrhosis. 3. History of gastroesophageal reflux disease. 4. Prior history of pneumonia. 5. History of neuropathy. 6. History of chronic anemia. 7. Gastrointestinal bleed. 8. History of hiatal hernia. 9. Previous history of ascites with prior paracentesis abdominis. 10.History of chronic back pain. 11.Anion gap metabolic acidosis, resolved. PLAN: The patient is doing well. His anion gap metabolic acidosis has improved dramatically with IV bicarbonate therapy. The patient's sodium bicarbonate IV can be discontinued. He does not need any IV fluids. He ate his full breakfast this morning. He is tolerating fluids well. The patient could be transferred back up to general medical floor. He is not requiring any supplemental oxygen. His abdominal examination is unremarkable. MMODL / IJN: [id number] /
--- NOTE | 2020-02-18 13:09 | P.PN ---
Subjective Progress Note Date: 02/18/20 Principal diagnosis: Alcoholic cirrhosis, gallstone pancreatitis, nausea and vomiting, esophagitis Patient seen lying in bed today in the ICU. He is feeling much better. He is t olerating liquid diet. He is having bowel movements with lactulose. Objective - Vital Signs Vital signs: Vital Signs Temp 98.2 F 02/18/20 08:00 Pulse 99 02/18/20 10:00 Resp 20 02/18/20 10:00 BP 121/80 02/18/20 09:00 Pulse Ox 91 L 02/18/20 09:00 Intake & Output 02/17/20 02/18/20 02/18/20 18:59 06:59 18:59 Intake Total 3740 2140 700 Output Total 2200 1170 200 Balance 1540 970 500 Weight 112 kg 110.7 kg Intake: IV 1200 1300 200 Dextrose 5% in Water 1, 1200 1300 200 000 ml @ 100 mls/hr IV . [id number] GRISELDA with Sodium Bicarb (1 Meq/ml) 150 ml Rx#:[id number] Intake, IV Titration 2000 Amount Sodium Chloride 0.9% 1, 2000 000 ml @ 999 mls/hr IV . Q1H1M ONE Rx#:[id number] Oral 540 840 500 Output: Urine 2200 1170 200 Other: Voiding Method Indwelling Catheter Indwelling Catheter Indwelling Catheter # Bowel Movements 1 1 - Exam On physical examination, patient appears comfortable in no apparent distress. HEAD: Normocephalic, atraumatic. EYES: No scleral icterus. No conjunctival injection. MOUTH: No lesions, tongue midline. NECK: Trachea midline, no gross abnormalities. ABDOMEN: Soft, obese, less tender to palpation. Bowel sounds are positive. No organomegaly. No guarding or rigidity. EXTREMITIES: No pedal edema. SKIN: No rashes, no jaundice. NEUROLOGIC: Alert and oriented to person, no asterixis noted. No focal deficits. - Labs CBC & Chem 7: 02/18/20 04:47 02/18/20 04:47 Labs: Abnormal Lab Results - Last 24 Hours (Table) 02/18/20 02/18/20 Range/Units 04:47 04:47 RBC 3.90 L (4.30-5.90) m/uL Hgb 11.2 L (13.0-17.5) gm/dL Hct 35.0 L (39.0-53.0) % RDW 16.4 H (11.5-15.5) % Lymphocytes # 0.6 L (1.0-4.8) k/uL Sodium 146 H (137-145) mmol/L Potassium 3.1 L (3.5-5.1) mmol/L Carbon Dioxide 32 H (22-30) mmol/L BUN 21 H (9-20) mg/dL Creatinine 0.56 L (0.66-1.25) mg/dL Glucose 205 H (74-99) mg/dL Alkaline Phosphatase 158 H (38-126) U/L Amylase 242 H (30-110) U/L Lipase 1704 H (23-300) U/L Assessment and Plan (1) Pancreatitis Narrative/Plan: 49-year-old with multiple medical comorbidities including decompensated alco holic liver disease with encephalopathy and ascites who presented due to nausea vomiting and abdominal pain. Found to have an acute elevation in amylase at 1401 and lipase at 5857. Ultrasound of the abdomen did show findings of sludge and stones with hydropic gallbladder. Currently being treated for possible gallstone pancreatitis with plan for cholecystectomy when medically stable. Nausea and vomiting secondary to ileus are much improved. He is tolerating liquids. Abdominal pain is also improved. Current Visit: Yes Status: Acute Code(s): K85.90 - ACUTE PANCREATITIS WITHOUT NECROSIS OR INFECTION, UNSP SNOMED Code(s): 02746794 (2) Intractable nausea and vomiting Current Visit: Yes Status: Acute Code(s): R11.2 - NAUSEA WITH VOMITING, UNSPECIFIED SNOMED Code(s): 851519913 (3) Abdominal pain Current Visit: No Status: Acute Code(s): R10.9 - UNSPECIFIED ABDOMINAL PAIN SNOMED Code(s): 38354013 (4) Alcoholic liver disease Current Visit: No Status: Acute Code(s): K70.9 - ALCOHOLIC LIVER DISEASE, UNSPECIFIED SNOMED Code(s): 04503919 Plan: Supportive care Okay for diet as tolerated, sodium restricted added Pain control Surgical service following Continue to follow CBC, CMP Continue diuresis with Lasix and Aldactone Continue treatment of encephalopathy with Xifaxan and lactulose Protonix IV Continue antiemetic therapy Continue to monitor symptoms Thank you for allowing us to participate in the care of the patient we will continue to follow
[2020-02-18] MEDS: NORTRIPTYLINE 25 MG CAP PO SCH (21:47)
[2020-02-19 05:11] LABS: Basophils % (A) 1 %; Eosinophils # (A) 0.3 k/uL (0-0.7); Eosinophils % (A) 9 %; HCT 31.3 % (39.0-53.0); HGB 9.8 gm/dL (13.0-17.5); Hypochromasia Slight; Lymphocytes # (A) 0.6 k/uL (1.0-4.8); Lymphocytes % (A) 18 %; MCH 28.4 pg (25.0-35.0); MCHC 31.2 g/dL (31.0-37.0); Mean Platelet Volume 8.1; Monocytes # (A) 0.2 k/uL (0-1.0); Monocytes % (A) 6 %; Neutrophils # (A) 2.1 k/uL (1.3-7.7); Neutrophils % (A) 64 %; Platelet Count 116 k/uL (150-450); RBC 3.44 m/uL (4.30-5.90); RDW 15.9 % (11.5-15.5); WBC 3.3 k/uL (3.8-10.6)
[2020-02-19 05:22] LABS: African American GFR (CKD) >90 (>60 ml/min/1.73 sqM); Anion Gap 7 mmol/L; Blood Urea Nitrogen 12 mg/dL (9-20); Carbon Dioxide 35 mmol/L (22-30); Chloride 97 mmol/L (98-107); Glucose 138 mg/dL (74-99); Non-African American GFR(CKD) >90 (>60 ml/min/1.73 sqM); Potassium 3.2 mmol/L (3.5-5.1); Sodium 139 mmol/L (137-145)
[2020-02-19] MEDS: SUCRALFATE 1 GM TAB PO SCH ×3 (06:18→17:30)
[2020-02-19] MEDS: PREGABALIN 100 MG CAP PO SCH ×3 (06:18→17:30)
[2020-02-19] MEDS: MODAFINIL 200 MG TAB PO SCH ×2 (06:18→17:30)
[2020-02-19] MEDS: POTASSIUM BICARBONATE/CIT AC 20 MEQ TABLET.EFF NG-TUBE SCH ×2 (06:19→08:22)
[2020-02-19] MEDS: BUPRENORPHINE HCL 8 MG SUBLINGUAL SCH ×4 (06:40→22:07)
[2020-02-19] MEDS: ONDANSETRON 4 MG/2 ML VIAL IVP SCH ×3 (06:42→17:30)
[2020-02-19] MEDS: ARMODAFINIL 250 MG PO SCH (08:10)
[2020-02-19] MEDS: LACTULOSE 20 GM/30 ML CUP PO SCH ×3 (08:20→22:06)
[2020-02-19] MEDS: PANTOPRAZOLE 40 MG/10 ML VIAL IVP SCH ×2 (08:20→22:07)
[2020-02-19] MEDS: FOLIC ACID 1 MG TAB PO SCH (08:22)
[2020-02-19] MEDS: SPIRONOLACTONE 25 MG TAB PO SCH ×2 (08:22→22:07)
[2020-02-19] MEDS: THIAMINE 100 MG TAB PO SCH (08:22)
[2020-02-19] MEDS: RIFAXIMIN 550 MG TABLET PO SCH ×3 (08:23→22:07)
--- NOTE | 2020-02-19 11:00 | PN ---
PROGRESS NOTE PULMONARY/CRITICAL CARE PROGRESS NOTE: DATE OF SERVICE: February 19, 2020. INTERVAL HISTORY: This is a patient who is 49 years of age that we saw in consultation 2 days ago. He had a history of acute pancreatitis, severe alcohol abuse, and alcoholic liver disease with cirrhosis. The patient presented here because of upper gastrointestinal bleed. He is currently doing much better. In addition, the patient had a pretty significant metabolic acidosis, anion gap, we gave him IV bicarbonate therapy and that seemed to resolve the metabolic acidosis. From the clinical standpoint, the patient is doing much better. He is on 2 L nasal cannula. Not receiving any IV fluids. The patient could be transferred out to the medical-surgical floor without telemetry. He denies any chest pain or chest discomfort. Denies any nausea, vomiting, diarrhea, or abdominal pain. Denies any fever or chills. PHYSICAL EXAMINATION: VITAL SIGNS: Current vital signs are reviewed. They include a temperature which is 98.4, heart rate 79, respiratory rate 16, blood pressure 107/79, mean 88, room air saturation 95%. GENERAL: Appears in no acute distress. HEENT: Examination is grossly unremarkable. NECK: Supple. Full range of motion. No adenopathy or thyromegaly. Neck veins are flat. CARDIOVASCULAR: Examination reveals regular rhythm and rate. Heart rate in the 70s. S1, S2 normal. LUNGS: Reveal clear breath sounds equal. No wheezes or rhonchi. ABDOMEN: Soft. No masses, tenderness. Bowel sounds are noted. EXTREMITIES are intact. No cyanosis, clubbing, or edema. SKIN: Without rash. NEUROLOGIC: Examination is brief but nonfocal. White count 3.3, hemoglobin 9.8, hematocrit 31.3, platelet count 116,000, sodium 139, potassium 3.3, chloride 97, CO2 35. Anion gap is now 7, BUN and creatinine were 12 and 0.47. His lipase is down to 982. Microbiology is negative. No new chest x-ray to report. Medications are reviewed. ASSESSMENT: 1. Acute pancreatitis, of unclear etiology, in a patient who denies alcohol use. 2. Prior history of severe alcohol abuse with alcoholic liver disease and cirrhosis. 3. History of gastroesophageal reflux disease. 4. Prior history of pneumonia. 5. History of neuropathy. 6. History of chronic anemia. 7. Gastrointestinal bleed. 8. History of hiatal hernia. 9. History of ascites, with prior paracentesis abdominis. 10.History of chronic back pain. 11.Anion gap metabolic acidosis, resolved. PLAN: Currently, the patient is doing well. He is eating and drinking properly. His electrolytes have returned to near normal. He is not near as dehydrated as he was when he first came in. The patient can be transferred out to the general medical floor. He is not requiring any supplemental oxygen at this time. He denies any abdominal complaints including nausea, vomiting, diarrhea, or any abdominal pain or cramping. MMODL / IJN: [id number] /
--- NOTE | 2020-02-19 14:13 | P.PN ---
Progress Note - Text Progress Note Date: 02/19/20 The patient feels better today. His lipase is also improved. He denies any significant abdominal pain. On exam is lesser stable. His abdomen soft. Gallstone Pickert's. Patient undergo laparoscopic cholecystectomy in the a.m.
--- NOTE | 2020-02-19 16:09 | P.PN ---
Subjective This is a pleasant 49-year-old patient of Dr. ortiz. Chronic stable medical conditions include alcoholic cirrhosis, portal hypertension, hyperlipidemia, peripheral neuropathy. EGD earlier this year showed a leg grade D distal esophagitis, large hiatal hernia, gastric antral vascular ectasia and and there was no esophageal varices. Patient now presents with nausea vomiting for 2 days. No blood in the vomitus. No fever no chills no cough. Normally has a bowel movement daily. Denies any abdominal pain. Patient also had recently foot wounds that have now healed. Tired rundown. Admitted with acute pancreatitis.on February 15 patient started vomiting repeatedly. Had coffee-ground emesis. Became encephalopathic. Moved to the ICU. Twice NG tube was placed that he took out. Placed on rectal lactulose Today-ICU. Pain on rectal lactulose. More awake. No further vomiting. Nothing by mouth. Ammonia started to come down.on IV fluids and IV bicarbonate drip. 02/18/2020, patient is seen and examined today in the ICU Patient was admitted for gallstone pancreatitis and hepatic encephalopathy in view of history of alcoholic liver cirrhosis, his last drink was about 5 days ago as per patient. Patient today is more awake and oriented to time place and person, he was updated why he was in the hospital. He denies chest pain or abd ominal pain. No dyspnea or cough and created. He tolerated his diet with no nausea vomiting. He is passing gas and he had one bowel movement yesterday. NG tube was taking of for his ileus which looks improving, he is hemodynamically stable. His leukocytosis came back to normal at 6.6K, creatinine back to normal at 0.5. 111 back to normal at 27 and lipase down to 1704. Patient is being downgraded to general medical floor 02/19/2020 Patient seen and examined in the ICU. He is doing better, his mentation is intact. He is mobile and able to tolerate his diet with little achy abdominal pain He just had his second bowel movement which looks good. The plan for cholecystectomy by surgery team sometime this coming week DC Iyer catheter placed on admission and check a bladder scan Vitals and labs reviewed looks stable, lipase trended down to 982 Patient may be transferred out of the ICU CONSTITUTIONAL: No fever, no malaise, no fatigue. HEENT: No recent visual problems or hearing problems. Denied any sore throat. CARDIOVASCULAR: No orthopnea, PND, no palpitations, no syncope. PULMONARY: No shortness of breath, no cough, no hemoptysis. GASTROINTESTINAL no nausea, no vomiting, no abdominal pain. Normoactive bowel sounds. NEUROLOGICAL: No headaches, no weakness, no numbness. HEMATOLOGICAL: Denies any bleeding or petechiae. GENITOURINARY: Denies any burning micturition, frequency, or urgency. MUSCULOSKELETAL/RHEUMATOLOGICAL: Denies any joint pain, swelling, or any muscle pain. ENDOCRINE: Denies any polyuria or polydipsia. Active Medications Generic Name Dose Route Start Last Admin Trade Name Freq PRN Reason Stop Dose Admin Folic Acid 1 mg 02/15/20 09:00 02/19/20 08:22 Folic Acid PO 1 mg DAILY GRISELDA Administration Hydromorphone HCl 0.5 mg 02/15/20 19:27 02/15/20 19:47 Dilaudid IVP 0.5 mg Q3HR PRN Administration Pain Lactulose 20 gm 02/18/20 00:00 02/19/20 15:31 Cephulac PO 20 gm Q8H GRISELDA Administration Modafinil 200 mg 02/15/20 17:30 02/19/20 06:18 Provigil PO 200 mg AC-BID GRISELDA Administration Naloxone HCl 0.2 mg 02/14/20 14:05 Narcan IV Q2M PRN Opioid Reversal Patient's Own Med ( 250 mg 02/15/20 09:00 02/19/20 08:10 Armodafinil [Nuvigil PO Not Given ] 250 Mg) DAILY GRISELDA Patient's Own Med ( 8 mg 02/15/20 12:30 02/19/20 12:27 Buprenorphine Hcl [ SUBLINGUAL 8 mg Subutex] 8 Mg) ACHS GRISELDA Administration Nortriptyline HCl 50 mg 02/14/20 21:00 02/18/20 21:47 Pamelor PO 50 mg HS GRISELDA Administration Ondansetron HCl 4 mg 02/15/20 12:00 02/19/20 12:27 Zofran IVP 4 mg Q6HR GRISELDA Administration Pantoprazole Sodium 40 mg 02/16/20 21:00 02/19/20 08:20 Protonix IVP 40 mg BID GRISELDA Administration Pregabalin 200 mg 02/14/20 20:32 02/19/20 12:27 Lyrica PO 200 mg AC-TID GRISELDA Administration Prochlorperazine Maleate 5 mg 02/16/20 04:54 Compazine PO Q8HR PRN Nausea And Vomiting Rifaximin 550 mg 02/14/20 22:00 02/19/20 15:31 Xifaxan PO 03/15/20 22:01 550 mg TID GRISELDA Administration Sodium Chloride 10 ml 02/18/20 21:00 02/19/20 08:22 Saline Flush IV 10 ml BID GRISELDA Administration Spironolactone 50 mg 02/14/20 21:00 02/19/20 08:22 Aldactone PO 50 mg BID GRISELDA Administration Sucralfate 1 gm 02/15/20 07:30 02/19/20 12:26 Carafate PO 1 gm AC-TID GRISELDA Administration Thiamine HCl 100 mg 02/15/20 09:00 02/19/20 08:22 Vitamin B-1 PO 100 mg DAILY GRISELDA Administration Trimethobenzamide HCl 200 mg 02/16/20 04:54 02/17/20 00:23 Tigan IM 200 mg Q6HR PRN Administration Nausea And Vomiting Objective - Vital Signs Vital signs: Vital Signs Temp 98.4 F 02/19/20 08:00 Pulse 79 02/19/20 08:00 Resp 16 02/19/20 08:00 BP 107/79 02/19/20 08:00 Pulse Ox 95 02/19/20 08:00 Intake & Output 02/18/20 02/19/20 02/19/20 18:59 06:59 18:59 Intake Total 1100 960 960 Output Total 600 985 615 Balance 500 -25 345 Weight 114.5 kg Intake: IV 200 Dextrose 5% in Water 1, 200 000 ml @ 100 mls/hr IV . [id number] GRISELDA with Sodium Bicarb (1 Meq/ml) 150 ml Rx#:[id number] Oral 900 960 960 Output: Urine 600 985 615 Other: Voiding Method Toilet Toilet Indwelling Catheter Indwelling Catheter Indwelling Catheter # Bowel Movements 1 1 - Exam GENERAL: The patient is alert and oriented x3, not in any acute distress. Well developed, well nourished. HEENT: Pupils are round and equally reacting to light. EOMI. No scleral icterus. No conjunctival pallor. Normocephalic, atraumatic. No pharyngeal erythema. No thyromegaly. CARDIOVASCULAR: S1 and S2 present. No murmurs, rubs, or gallops. PULMONARY: Chest is clear to auscultation, no wheezing or crackles. ABDOMEN: Soft, nontender, nondistended, normoactive bowel sounds. No palpable organomegaly. MUSCULOSKELETAL: No joint swelling or deformity. EXTREMITIES: No cyanosis, clubbing, or pedal edema. NEUROLOGICAL: Gross neurological examination did not reveal any focal deficits. SKIN: No rashes. no petechiae. - Labs CBC & Chem 7: 02/19/20 04:47 02/19/20 10:29 Labs: Abnormal Lab Results - Last 24 Hours (Table) 02/19/20 02/19/20 Range/Units 04:47 04:47 WBC 3.3 L (3.8-10.6) k/uL RBC 3.44 L (4.30-5.90) m/uL Hgb 9.8 L (13.0-17.5) gm/dL Hct 31.3 L (39.0-53.0) % RDW 15.9 H (11.5-15.5) % Plt Count 116 L (150-450) k/uL Lymphocytes # 0.6 L (1.0-4.8) k/uL Potassium 3.2 L (3.5-5.1) mmol/L Chloride 97 L (98-107) mmol/L Carbon Dioxide 35 H (22-30) mmol/L Creatinine 0.47 L (0.66-1.25) mg/dL Glucose 138 H (74-99) mg/dL Lipase 982 H (23-300) U/L Assessment and Plan Assessment: -Acute pancreatitis, secondary to gallstone disease. Improving. He is off IV fluids for now. Patient is followed closely by GI team and surgery team -Hepatic encephalopathy, improved and patient mentation is back to normal. A mmonia level was normal. -possible Acute GI bleed with coffee-ground emesis-improving. Hemoglobin is stable. Patient's father closely by GI team -hydrops gallbladder on ultrasound, With a small stones and sludge. Patient has no right upper quadrant tenderness.Surgery team on the case -Alcoholic cirrhosis. Last alcoholic drink was 5 years ago as per patient -Portal hypertension -Diabetic peripheral neuropathy -Left foot wound secondary to neuropathy-healed -GERD -Large hiatal hernia -LA grade D distal esophagitis, - large hiatal hernia, -gastric antral vascular ectasia DVT prophylaxis: Mechanical, noted Impression for possible GI bleed GI prophylaxis Protonix
--- NOTE | 2020-02-19 17:55 | P.PN ---
Subjective Progress Note Date: 02/19/20 Principal diagnosis: Alcoholic cirrhosis, gallstone pancreatitis, nausea and vomiting, esophagitis Patient seen lying in bed today in the ICU. He is feeling much better a normal nonbloody bowel movements. Abdominal pain improved. He is tolerating his diet. Objective - Vital Signs Vital signs: Vital Signs Temp 98.4 F 02/19/20 08:00 Pulse 79 02/19/20 08:00 Resp 16 02/19/20 08:00 BP 107/79 02/19/20 08:00 Pulse Ox 95 02/19/20 08:00 Intake & Output 02/18/20 02/19/20 02/19/20 18:59 06:59 18:59 Intake Total 1100 960 Output Total 600 985 Balance 500 -25 Weight 114.5 kg Intake: IV 200 Dextrose 5% in Water 1, 200 000 ml @ 100 mls/hr IV . [id number] GRISELDA with Sodium Bicarb (1 Meq/ml) 150 ml Rx#:[id number] Oral 900 960 Output: Urine 600 985 Other: Voiding Method Toilet Toilet Indwelling Catheter Indwelling Catheter # Bowel Movements 1 - Exam On physical examination, patient appears comfortable in no apparent distress. HEAD: Normocephalic, atraumatic. EYES: No scleral icterus. No conjunctival injection. MOUTH: No lesions, tongue midline. NECK: Trachea midline, no gross abnormalities. ABDOMEN: Soft, obese, less tender to palpation. Bowel sounds are positive. No organomegaly. No guarding or rigidity. EXTREMITIES: No pedal edema. SKIN: No rashes, no jaundice. NEUROLOGIC: Alert and oriented to person, no asterixis noted. No focal defici ts. - Labs CBC & Chem 7: 02/19/20 04:47 02/19/20 10:29 Labs: Abnormal Lab Results - Last 24 Hours (Table) 02/19/20 02/19/20 Range/Units 04:47 04:47 WBC 3.3 L (3.8-10.6) k/uL RBC 3.44 L (4.30-5.90) m/uL Hgb 9.8 L (13.0-17.5) gm/dL Hct 31.3 L (39.0-53.0) % RDW 15.9 H (11.5-15.5) % Plt Count 116 L (150-450) k/uL Lymphocytes # 0.6 L (1.0-4.8) k/uL Potassium 3.2 L (3.5-5.1) mmol/L Chloride 97 L (98-107) mmol/L Carbon Dioxide 35 H (22-30) mmol/L Creatinine 0.47 L (0.66-1.25) mg/dL Glucose 138 H (74-99) mg/dL Lipase 982 H (23-300) U/L Assessment and Plan (1) Pancreatitis Narrative/Plan: 49-year-old with multiple medical comorbidities including decompensated alcoholic liver disease with encephalopathy and ascites who presented due to nausea vomiting and abdominal pain. Found to have an acute elevation in amylase at 1401 and lipase at 5857. Ultrasound of the abdomen did show findings of sludge and stones with hydropic gallbladder. Currently being treated for possible gallstone pancreatitis with plan for cholecystectomy when medically stable. Nausea and vomiting secondary to ileus are much improved. He is tolerating regular diet. Abdominal pain is also improved. Current Visit: Yes Status: Acute Code(s): K85.90 - ACUTE PANCREATITIS WITHOUT NECROSIS OR INFECTION, UNSP SNOMED Code(s): 99825962 (2) Intractable nausea and vomiting Current Visit: Yes Status: Acute Code(s): R11.2 - NAUSEA WITH VOMITING, UNSPECIFIED SNOMED Code(s): 712924634 (3) Abdominal pain Current Visit: No Status: Acute Code(s): R10.9 - UNSPECIFIED ABDOMINAL PAIN SNOMED Code(s): 90604775 (4) Alcoholic liver disease Current Visit: No Status: Acute Code(s): K70.9 - ALCOHOLIC LIVER DISEASE, UNSPECIFIED SNOMED Code(s): 07989745 Plan: Supportive care Okay for diet as tolerated, sodium restricted Pain control Surgical service following Continue to follow CBC, CMP Continue diuresis with Lasix and Aldactone Continue treatment of encephalopathy with Xifaxan and lactulose Protonix IV Continue antiemetic therapy Continue to monitor symptoms Surgical service following with plans for cholecystectomy Thank you for allowing us to participate in the care of the patient we will continue to follow
[2020-02-19] MEDS: NORTRIPTYLINE 25 MG CAP PO SCH (22:07)
[2020-02-20] MEDS: ONDANSETRON 4 MG/2 ML VIAL IVP SCH ×5 (00:37→23:46)
[2020-02-20 04:38] LABS: Basophils % (A) 0 %; Eosinophils # (A) 0.3 k/uL (0-0.7); Eosinophils % (A) 9 %; HCT 30.6 % (39.0-53.0); Hypochromasia Slight; Lymphocytes # (A) 0.8 k/uL (1.0-4.8); Lymphocytes % (A) 21 %; MCH 29.7 pg (25.0-35.0); MCHC 32.8 g/dL (31.0-37.0); MCV 90.7 fL (80.0-100.0); Mean Platelet Volume 8.7; Monocytes # (A) 0.2 k/uL (0-1.0); Monocytes % (A) 5 %; Neutrophils # (A) 2.3 k/uL (1.3-7.7); Neutrophils % (A) 63 %; Platelet Count 149 k/uL (150-450); RBC 3.37 m/uL (4.30-5.90); RDW 15.3 % (11.5-15.5); WBC 3.7 k/uL (3.8-10.6)
[2020-02-20 04:48] LABS: African American GFR (CKD) >90 (>60 ml/min/1.73 sqM); Anion Gap 5 mmol/L; Blood Urea Nitrogen 10 mg/dL (9-20); Calcium 9.3 mg/dL (8.4-10.2); Carbon Dioxide 37 mmol/L (22-30); Chloride 97 mmol/L (98-107); Glucose 140 mg/dL (74-99); Non-African American GFR(CKD) >90 (>60 ml/min/1.73 sqM); Potassium 3.6 mmol/L (3.5-5.1); Sodium 139 mmol/L (137-145)
[2020-02-20] MEDS: BUPRENORPHINE HCL 8 MG SUBLINGUAL SCH ×4 (06:10→20:14)
[2020-02-20] MEDS: MODAFINIL 200 MG TAB PO SCH ×2 (06:10→17:20)
[2020-02-20] MEDS: PREGABALIN 100 MG CAP PO SCH ×3 (06:11→17:20)
[2020-02-20] MEDS: SUCRALFATE 1 GM TAB PO SCH ×3 (06:11→17:20)
[2020-02-20] MEDS: PANTOPRAZOLE 40 MG/10 ML VIAL IVP SCH (08:22)
[2020-02-20] MEDS: POTASSIUM CHLORIDE 10 MEQ in WATER FOR INJECTION 1 100ML.BAG IVPB SCH ×2 (08:22→09:30)
[2020-02-20] MEDS: LACTULOSE 20 GM/30 ML CUP PO SCH ×3 (09:31→23:44)
[2020-02-20 09:44] VITALS: BMI 29.4
[2020-02-20] MEDS: RIFAXIMIN 550 MG TABLET PO SCH ×3 (10:53→22:22)
[2020-02-20] MEDS: ARMODAFINIL 250 MG PO SCH (10:53)
[2020-02-20] MEDS: SPIRONOLACTONE 25 MG TAB PO SCH ×2 (10:53→22:23)
[2020-02-20] MEDS: FOLIC ACID 1 MG TAB PO SCH (10:53)
[2020-02-20] MEDS: THIAMINE 100 MG TAB PO SCH (10:54)
[2020-02-20] MEDS ORDERED: LACTATED RINGERS 1,000 ML IV ONE ×2 (11:10→13:31)
[2020-02-20] MEDS ORDERED: DEXAMETHASONE SOD PHOSPHATE 10 MG/ML 1 ML VIAL IV ONE (11:15)
[2020-02-20] MEDS ORDERED: ONDANSETRON 4 MG/2 ML VIAL IVP ONE (11:15)
[2020-02-20] MEDS ORDERED: ARTIFICIAL TEARS-HYPROMELLOSE DROPS 15 ML BTL BOTH EYES PRN (11:18)
[2020-02-20] MEDS: SODIUM CHLORIDE 0.9% 1,000 ML with SODIUM BICARB (1 MEQ/ML) 50 ML IV SCH ×2 (11:35)
--- NOTE | 2020-02-20 12:02 | P.PN ---
Subjective Progress Note Date: 02/20/20 T1-year-old male patient with history of alcoholism and alcoholic liver disease/cirrhosis, portal hypertension, hyperlipidemia, peripheral neuropathy and previous history of large distal esophagitis and large hiatal hernia along with gastric antral vascular ectasia who presented to the hospital because of nausea and emesis a few days duration and he was diagnosed having an acute pancreatitis. He was admitted on 02/16/2020. He was having some coffee-ground emesis. He was altered and encephalopathic. He was brought into the intensive care unit. NG tube was placed and subsequently taken out. The patient was also given lactulose. The patient as such presented with upper GI bleed. He was being monitored in intensive care unit. He was quite acidotic at time of admission and this was an anion gap metabolic acidosis and was given IV bicarb and his metabolic acidosis subsequently improved. As for his pancreatitis, he was suspected to have gallstone pancreatitis and he was seen by GI due to his acute pancreatitis and decompensated liver disease and encephalopathy. Note that the ultrasound of the abdomen showed sludge and stones within the gallbladder that was also had dropping. He was treated for possible gallstone pancreatitis and the recommendation was ultimately to perform a cystectomy once the patient was more medically stable. Gen. surgery was consulted along with gastroenterology. He was in the intensive care unit for essentially supportive care. His mental status improved. Objective - Vital Signs Vital signs: Vital Signs Temp 97.3 F L 02/20/20 11:11 Pulse 75 02/20/20 11:11 Resp 16 02/20/20 11:11 BP 129/83 02/20/20 11:11 Pulse Ox 96 02/20/20 11:11 Intake & Output 02/19/20 02/20/20 02/20/20 18:59 06:59 18:59 Intake Total 1200 120 100 Output Total 1315 650 Balance -115 -530 100 Weight 112.5 kg 112.5 kg Intake: Intake, IV Titration 100 Amount Potassium Chloride 10 meq 100 In Water For Injection 1 100ml.bag @ 100 mls/hr IVPB Q1H [facility] Rx#: [id number] Oral 1200 120 Output: Urine 1315 650 Other: Voiding Method Indwelling Catheter Toilet Toilet Urinal Urinal # Voids 2 # Bowel Movements 1 - Exam GENERAL: The patient is alert and oriented x3, not in any acute distress. Well developed, well nourished. Head exam was generally normal. There was no scleral icterus or corneal arcus. Mucous membranes were moist. HEENT: Pupils are round and equally reacting to light. EOMI. No scleral icterus. No conjunctival pallor. Normocephalic, atraumatic. No pharyngeal erythema. No thyromegaly. CARDIOVASCULAR: S1 and S2 present. No murmurs, rubs, or gallops. PULMONARY: Chest is clear to auscultation, no wheezing or crackles. ABDOMEN: Soft, nontender, nondistended, normoactive bowel sounds. No palpable organomegaly. MUSCULOSKELETAL: No joint swelling or deformity. EXTREMITIES: No cyanosis, clubbing, or pedal edema. NEUROLOGICAL: Gross neurological examination did not reveal any focal deficits. Examination of the skin revealed no evidence of significant rashes, suspicious appearing nevi or other concerning lesions. - Labs CBC & Chem 7: 02/20/20 03:52 02/20/20 03:52 Labs: Abnormal Lab Results - Last 24 Hours (Table) 02/20/20 02/20/20 02/20/20 Range/Units 03:52 03:52 03:52 WBC 3.7 L (3.8-10.6) k/uL RBC 3.37 L (4.30-5.90) m/uL Hgb 10.0 L (13.0-17.5) gm/dL Hct 30.6 L (39.0-53.0) % Plt Count 149 L (150-450) k/uL Lymphocytes # 0.8 L (1.0-4.8) k/uL Chloride 97 L (98-107) mmol/L Carbon Dioxide 37 H (22-30) mmol/L Creatinine 0.46 L (0.66-1.25) mg/dL Glucose 140 H (74-99) mg/dL Triglycerides 160 H (<150) mg/dL Lipase 595 H (23-300) U/L Assessment and Plan Plan: 1 acute pancreatitis, likely gallstone pancreatitis, improving and the patient was followed up by gastroenterology and general surgery and the patient is being considered for elective cholecystectomy today, improved and her lipase level is down to 595 2 alcoholic liver cirrhosis 3 hepatic encephalopathy, improved and the ammonia level back to normal 4 upper GI bleed suspected as the patient was having coffee-ground emesis, improved 5-hydroxy gallbladder with sludge and stones, no signs of any right upper quadrant tenderness at this point in time 6 history of alcoholism and his last alcohol drink was around 5 years ago 7 postoperative hypertension secondary to liver cirrhosis 8 diabetes mellitus 9 diabetic peripheral neuropathy 10 history of left-sided foot wound secondary to neuropathy, healed 11 large hiatal hernia 12 history of distal esophagitis grade D in addition to antral gastric vascular ectasia 13 history of acid reflux 14 history of chronic anemia 15 metabolic acidosis, improved 16 acute kidney injury, improved in the creatinine is normalized 17 hypokalemia, replaced Plan Continue lactulose for hepatic encephalopathy allow oneself daily bowel movements Xifaxan for hepatic encephalopathy Continue Aldactone Continue thiamine and folate IV Protonix GI surgery has been consulted and the patient will be taken to the operating room today for cholecystectomy
[2020-02-20] MEDS ORDERED: HEPARIN SODIUM,PORCINE 5,000 UNIT/ML 1 ML VIAL SQ ONE (12:06)
[2020-02-20] MEDS ORDERED: MIDAZOLAM 2 MG/2 ML VIAL ONE (12:23)
[2020-02-20] MEDS ORDERED: ROCURONIUM BROMIDE 10 MG/ML 5 ML VIAL IV ONE (12:23)
[2020-02-20] MEDS ORDERED: PHENYLEPHRINE-0.9% NACL SYG 1 MG/10 ML SYRINGE ONE (12:23)
[2020-02-20] MEDS ORDERED: SUCCINYLCHOLINE CHLORIDE 100 MG/5 ML SYR IV ONE (12:23)
[2020-02-20] MEDS ORDERED: HYDROmorphone (PF) 1 MG/ML ONE (12:23)
[2020-02-20] MEDS ORDERED: PROPOFOL 10 MG/ML 20 ML VIAL IV ONE (12:23)
[2020-02-20] MEDS ORDERED: KETAMINE 10 MG/ML 20 ML VIAL ONE (12:23)
[2020-02-20] MEDS ORDERED: NEOSTIGMINE 1 MG/ML 10 ML VIAL ONE (12:23)
[2020-02-20] MEDS ORDERED: GLYCOPYRROLATE 0.2 MG/ML 2 ML VIAL ONE (12:23)
[2020-02-20] MEDS ORDERED: LIDOCAINE 1% INJ 10MG/ML (20 ML MDV) ONE (12:23)
[2020-02-20] MEDS ORDERED: KETOROLAC 30 MG/ML 1 ML VIAL ONE (12:23)
[2020-02-20] MEDS ORDERED: fentaNYL (PF) 50 MCG/ML 2 ML AMP ONE (12:23)
[2020-02-20] MEDS ORDERED: BUPIVACAIN-EPI 0.25%-1:200,000 30 ML VIAL SQ ONE (12:26)
--- NOTE | 2020-02-20 12:59 | P.PN ---
Subjective This is a pleasant 49-year-old patient of Dr. ortiz. Chronic stable medical conditions include alcoholic cirrhosis, portal hypertension, hyperlipidemia, peripheral neuropathy. EGD earlier this year showed a leg grade D distal esophagitis, large hiatal hernia, gastric antral vascular ectasia and and there was no esophageal varices. Patient now presents with nausea vomiting for 2 days. No blood in the vomitus. No fever no chills no cough. Normally has a bowel movement daily. Denies any abdominal pain. Patient also had recently foot wounds that have now healed. Tired rundown. Admitted with acute pancreatitis.on February 15 patient started vomiting repeatedly. Had coffee-ground emesis. Became encephalopathic. Moved to the ICU. Twice NG tube was placed that he took out. Placed on rectal lactulose Today-ICU. Pain on rectal lactulose. More awake. No further vomiting. Nothing by mouth. Ammonia started to come down.on IV fluids and IV bicarbonate drip. 02/18/2020, patient is seen and examined today in the ICU Patient was admitted for gallstone pancreatitis and hepatic encephalopathy in view of history of alcoholic liver cirrhosis, his last drink was about 5 days ago as per patient. Patient today is more awake and oriented to time place and person, he was updated why he was in the hospital. He denies chest pain or abd ominal pain. No dyspnea or cough and created. He tolerated his diet with no nausea vomiting. He is passing gas and he had one bowel movement yesterday. NG tube was taking of for his ileus which looks improving, he is hemodynamically stable. His leukocytosis came back to normal at 6.6K, creatinine back to normal at 0.5. 111 back to normal at 27 and lipase down to 1704. Patient is being downgraded to general medical floor 02/19/2020 Patient seen and examined in the ICU. He is doing better, his mentation is intact. He is mobile and able to tolerate his diet with little achy abdominal pain He just had his second bowel movement which looks good. The plan for cholecystectomy by surgery team sometime this coming week DC Iyer catheter placed on admission and check a bladder scan Vitals and labs reviewed looks stable, lipase trended down to 982 Patient may be transferred out of the ICU 02/20/2020 Patient remains clinically stable, awake and alert. No chest pain or dyspnea. His vitals remained stable and afebrile. Labs show WBC 3.7K, hemoglobin 10.0, and a pleasant creatinine normal Patient is going for lap cholecystectomy today Objective - Vital Signs Vital signs: Vital Signs Temp 97.3 F L 02/20/20 11:11 Pulse 75 02/20/20 11:11 Resp 16 02/20/20 11:11 BP 129/83 02/20/20 11:11 Pulse Ox 96 02/20/20 11:11 Intake & Output 02/19/20 02/20/20 02/20/20 18:59 06:59 18:59 Intake Total 1200 120 300 Output Total 1315 650 Balance -115 -530 300 Weight 112.5 kg 112.5 kg Intake: IV 200 Intake, IV Titration 100 Amount Potassium Chloride 10 meq 100 In Water For Injection 1 100ml.bag @ 100 mls/hr IVPB Q1H [facility] Rx#: [id number] Oral 1200 120 Output: Urine 1315 650 Other: Voiding Method Indwelling Catheter Toilet Toilet Urinal Urinal # Voids 2 # Bowel Movements 1 - Exam GENERAL: The patient is alert and oriented x3, not in any acute distress. Well developed, well nourished. HEENT: Pupils are round and equally reacting to light. EOMI. No scleral icterus. No conjunctival pallor. Normocephalic, atraumatic. No pharyngeal erythema. No thyromegaly. CARDIOVASCULAR: S1 and S2 present. No murmurs, rubs, or gallops. PULMONARY: Chest is clear to auscultation, no wheezing or crackles. ABDOMEN: Soft, nontender, nondistended, normoactive bowel sounds. No palpable organomegaly. MUSCULOSKELETAL: No joint swelling or deformity. EXTREMITIES: No cyanosis, clubbing, or pedal edema. NEUROLOGICAL: Gross neurological examination did not reveal any focal deficits. SKIN: No rashes. no petechiae. - Labs CBC & Chem 7: 02/20/20 03:52 02/20/20 03:52 Labs: Abnormal Lab Results - Last 24 Hours (Table) 02/20/20 02/20/20 02/20/20 Range/Units 03:52 03:52 03:52 WBC 3.7 L (3.8-10.6) k/uL RBC 3.37 L (4.30-5.90) m/uL Hgb 10.0 L (13.0-17.5) gm/dL Hct 30.6 L (39.0-53.0) % Plt Count 149 L (150-450) k/uL Lymphocytes # 0.8 L (1.0-4.8) k/uL Chloride 97 L (98-107) mmol/L Carbon Dioxide 37 H (22-30) mmol/L Creatinine 0.46 L (0.66-1.25) mg/dL Glucose 140 H (74-99) mg/dL Triglycerides 160 H (<150) mg/dL Lipase 595 H (23-300) U/L Assessment and Plan Assessment: -Acute pancreatitis, secondary to gallstone disease. Improving. He is off IV fluids for now. Patient is followed closely by GI team and surgery team -Hepatic encephalopathy, improved and patient mentation is back to normal. Ammonia level was normal. -possible Acute GI bleed with coffee-ground emesis-improving. Hemoglobin is stable. Patient's father closely by GI team -hydrops gallbladder on ultrasound, With a small stones and sludge. Patient has no right upper quadrant tenderness.Surgery team on the case -Alcoholic cirrhosis. Last alcoholic drink was 5 years ago as per patient -Portal hypertension -Diabetic peripheral neuropathy -Left foot wound secondary to neuropathy-healed -GERD -Large hiatal hernia -LA grade D distal esophagitis, - large hiatal hernia, -gastric antral vascular ectasia DVT prophylaxis: Mechanical, noted Impression for possible GI bleed GI prophylaxis Protonix
[2020-02-20] MEDS ORDERED: POTASSIUM CHLORIDE ER 20 MEQ TAB.ER PO SCH (13:00)
--- NOTE | 2020-02-20 13:51 | PN ---
PROGRESS NOTE DATE OF SERVICE: 02/20/2020 Patient is a 49-year-old pleasant white male admitted to the hospital with acute gallstone pancreatitis, also has prior history of alcoholic cirrhosis of the liver. He quit drinking about 5 years ago. He is feeling much better. Abdominal pain has improved. No nausea, no vomiting. He is scheduled for a cholecystectomy by Dr. Lerma at 1 p.m. today. PHYSICAL EXAMINATION: Appears comfortable, in no apparent distress. Vital signs are stable. Blood pressure is 133/82, pulse rate 79, temperature 97.3. HEENT: Examination unremarkable. Conjunctivae are pink, sclerae nonicteric, oral cavity no lesions. NECK: No JVD or lymph node enlargement. CHEST: Clear to auscultation. HEART: Regular rate and rhythm. ABDOMEN: Soft. There was very minimal tenderness in the epigastric area. The rest of the abdomen was benign. Bowel sounds are positive. No organomegaly. EXTREMITIES: No pedal edema. SKIN: No rashes. NEURO: He is alert and oriented x3. No focal deficits. LABS: From today WBC 3.7, hemoglobin 10.0, platelets 149. ALT and AST were not done today. Lipase is down to 595 and basic metabolic panel is within normal limits. IMPRESSION: 1. Acute gallstone pancreatitis, resolved. Lipase trending down. Patient doing much better. Remains in the intensive care unit, being transferred to the floor today. 2. Alcoholic cirrhosis of the liver with portal hypertension, but well compensated. 3. Intractable nausea, vomiting, resolved. RECOMMENDATION: 1. Continue to keep him n.p.o. 2. Patient scheduled for gallbladder surgery today. 3. Monitor LFTs on a daily basis. 4. Continue with current dietary regimen. 5. Continue with Xifaxan and lactulose for history of hepatic encephalopathy. 6. PPIs and antiemetics as needed. 7. Will follow with you closely. Thank you for this consultation. MMODL / IJN: [id number] /
--- NOTE | 2020-02-20 14:44 | P.OP ---
Date of Procedure: 02/20/20 Preoperative Diagnosis: Gallstone pancreatitis Postoperative Diagnosis: Gallstone pancreatitis Procedure(s) Performed: Open cholecystectomy Anesthesia: ALEXANDER Surgeon: Cirilo Lerma Estimated Blood Loss (ml): 50 Pathology: other (Gallbladder) Condition: stable Disposition: PACU Description of Procedure: The patient was placed on the operating table. The patient received a general endotracheal tube anesthesia. The patients abdomen was prepped and draped in the usual sterile fashion. Through an infraumbilical stab incision, the fascia of the anterior abdominal wall was grasped with a pair of Kochers and then the Veress needle was placed in the peritoneal cavity. Position of the Veress needle was confirmed with positive drop test. The abdomen was then insufflated. After adequate insufflation, the 10 mm trocar was placed in the peritoneal cavity. Following this the laparoscope was placed in the peritoneal cavity. The patient had significant adhesions throughout the entire peritoneal cavity. At this point the procedure was converted to an open p rocedure. A standard right subcostal incision was made. And then using the cautery the abdominal wall was divided. The Jay transverse placed a wound. The gallbladder is visualized. The gallbladder was quite enlarged hydropic and had some palpable stones in the gallbladder. The gallbladder was aspirated. The gallbladder was then taken down from the dome down technique using left cautery to remove the gallbladder from liver bed. The cystic duct and cystic artery and then visualized. The cystic artery was then clipped and divided. The cystic duct was ligated with a Endoloop and 0 silk tie and then the gallbladder was divided at the neck of the gallbladder. The liver bed was inspected for hemostasis. Several small bleeding points were quite good. A piece of Surgicel was placed in the liver bed. There is no bleeding seen. The abdomen was irrigated. There is no bleeding seen. The fascia was closed with looped #1 PDS suture. Skin was closed with ashley. Patient top procedure well patient was sent to recovery room in stable condition.
[2020-02-20] MEDS: HYDROmorphone 0.5 MG/0.5 ML SYRINGE IVP PRN ×2 (17:47→22:27)
[2020-02-20] MEDS: NORTRIPTYLINE 25 MG CAP PO SCH (22:23)
[2020-02-21] MEDS: HYDROmorphone 0.5 MG/0.5 ML SYRINGE IVP PRN ×3 (05:02→11:14)
[2020-02-21] MEDS: ONDANSETRON 4 MG/2 ML VIAL IVP SCH ×4 (06:14→23:29)
[2020-02-21] MEDS ORDERED: PANTOPRAZOLE 40 MG TABLET PO SCH (07:30)
[2020-02-21 07:32] LABS: African American GFR (CKD) >90 (>60 ml/min/1.73 sqM); Anion Gap 7 mmol/L; Blood Urea Nitrogen 17 mg/dL (9-20); Calcium 8.2 mg/dL (8.4-10.2); Carbon Dioxide 34 mmol/L (22-30); Chloride 96 mmol/L (98-107); Glucose 176 mg/dL (74-99); Non-African American GFR(CKD) >90 (>60 ml/min/1.73 sqM); Potassium 4.5 mmol/L (3.5-5.1); Sodium 137 mmol/L (137-145)
[2020-02-21 07:39] LABS: Basophils % (A) 0 %; Eosinophils # (A) 0.3 k/uL (0-0.7); Eosinophils % (A) 4 %; HCT 25.2 % (39.0-53.0); Hypochromasia Slight; Lymphocytes # (A) 1.1 k/uL (1.0-4.8); Lymphocytes % (A) 19 %; MCH 29.1 pg (25.0-35.0); MCHC 31.8 g/dL (31.0-37.0); MCV 91.3 fL (80.0-100.0); Mean Platelet Volume 9.1; Monocytes # (A) 0.4 k/uL (0-1.0); Monocytes % (A) 6 %; Neutrophils # (A) 4.1 k/uL (1.3-7.7); Neutrophils % (A) 69 %; Platelet Count 200 k/uL (150-450); RBC 2.76 m/uL (4.30-5.90); RDW 15.6 % (11.5-15.5); WBC 5.9 k/uL (3.8-10.6)
[2020-02-21] MEDS: BUPRENORPHINE HCL 8 MG SUBLINGUAL SCH ×4 (07:42→21:49)
--- NOTE | 2020-02-21 08:03 | P.PN ---
Subjective This is a pleasant 49-year-old patient of Dr. ortiz. Chronic stable medical conditions include alcoholic cirrhosis, portal hypertension, hyperlipidemia, peripheral neuropathy. EGD earlier this year showed a leg grade D distal esophagitis, large hiatal hernia, gastric antral vascular ectasia and and there was no esophageal varices. Patient now presents with nausea vomiting for 2 days. No blood in the vomitus. No fever no chills no cough. Normally has a bowel movement daily. Denies any abdominal pain. Patient also had recently foot wounds that have now healed. Tired rundown. Admitted with acute pancreatitis.on February 15 patient started vomiting repeatedly. Had coffee-ground emesis. Became encephalopathic. Moved to the ICU. Twice NG tube was placed that he took out. Placed on rectal lactulose Today-ICU. Pain on rectal lactulose. More awake. No further vomiting. Nothing by mouth. Ammonia started to come down.on IV fluids and IV bicarbonate drip. 02/18/2020, patient is seen and examined today in the ICU Patient was admitted for gallstone pancreatitis and hepatic encephalopathy in view of history of alcoholic liver cirrhosis, his last drink was about 5 days ago as per patient. Patient today is more awake and oriented to time place and person, he was updated why he was in the hospital. He denies chest pain or abd ominal pain. No dyspnea or cough and created. He tolerated his diet with no nausea vomiting. He is passing gas and he had one bowel movement yesterday. NG tube was taking of for his ileus which looks improving, he is hemodynamically stable. His leukocytosis came back to normal at 6.6K, creatinine back to normal at 0.5. 111 back to normal at 27 and lipase down to 1704. Patient is being downgraded to general medical floor 02/19/2020 Patient seen and examined in the ICU. He is doing better, his mentation is intact. He is mobile and able to tolerate his diet with little achy abdominal pain He just had his second bowel movement which looks good. The plan for cholecystectomy by surgery team sometime this coming week DC Iyer catheter placed on admission and check a bladder scan Vitals and labs reviewed looks stable, lipase trended down to 982 Patient may be transferred out of the ICU 02/20/2020 Patient remains clinically stable, awake and alert. No chest pain or dyspnea. His vitals remained stable and afebrile. Labs show WBC 3.7K, hemoglobin 10.0, and a pleasant creatinine normal Patient is going for lap cholecystectomy today 02/21/2020 Patient is fully awake oriented. He is status post open cholecystectomy. Today is postop day #1 He was able to be toilet of his breakfast, he has significant pain at the surgical site with RUQ wound looks intact with dressing in place Patient is able to void with no difficulty after discontinuing the Iyer catheter Vitals are stable, WBC is 5.9k, hemoglobin dropped from 10.0 down to 8.0 postoperatively. Electrolytes and creatinine are within normal limits. Strength is down to 404 Review of systems CONSTITUTIONAL: No fever, no malaise, no fatigue. HEENT: No recent visual problems or hearing problems. Denied any sore throat. CARDIOVASCULAR: No orthopnea, PND, no palpitations, no syncope. PULMONARY: No shortness of breath, no cough, no hemoptysis. NEUROLOGICAL: No headaches, no weakness, no numbness. HEMATOLOGICAL: Denies any bleeding or petechiae. GENITOURINARY: Denies any burning micturition, frequency, or urgency. MUSCULOSKELETAL/RHEUMATOLOGICAL: Denies any joint pain, swelling, or any muscle pain. ENDOCRINE: Denies any polyuria or polydipsia. Active Medications Generic Name Dose Route Start Last Admin Trade Name Freq PRN Reason Stop Dose Admin Artificial Tears 1 drops 02/20/20 11:18 Artificial Tear Drops BOTH EYES QID PRN Dry Eye(s) Folic Acid 1 mg 02/15/20 09:00 02/20/20 10:53 Folic Acid PO Not Given DAILY [facility] Hydromorphone HCl 0.5 mg 02/15/20 19:27 02/21/20 05:02 Dilaudid IVP 0.5 mg Q3HR PRN Administration Pain Lactulose 20 gm 02/18/20 00:00 02/20/20 23:44 Cephulac PO Not Given Q8H [facility] Modafinil 200 mg 02/15/20 17:30 02/20/20 17:20 Provigil PO 200 mg AC-BID [facility] Administration Naloxone HCl 0.2 mg 02/14/20 14:05 Narcan IV Q2M PRN Opioid Reversal Patient's Own Med ( 250 mg 02/15/20 09:00 02/20/20 10:53 Armodafinil [Nuvigil PO Not Given ] 250 Mg) DAILY [facility] Patient's Own Med ( 8 mg 02/15/20 12:30 02/21/20 07:42 Buprenorphine Hcl [ SUBLINGUAL 8 mg Subutex] 8 Mg) ACHS [facility] Administration Nortriptyline HCl 50 mg 02/14/20 21:00 02/20/20 22:23 Pamelor PO 50 mg HS [facility] Administration Ondansetron HCl 4 mg 02/15/20 12:00 02/21/20 06:14 Zofran IVP 4 mg Q6HR [facility] Administration Pantoprazole Sodium 40 mg 02/21/20 07:30 Protonix PO AC-BRKFST [facility] Pregabalin 200 mg 02/14/20 20:32 02/20/20 17:20 Lyrica PO 200 mg AC-TID [facility] Administration Prochlorperazine Maleate 5 mg 02/16/20 04:54 Compazine PO Q8HR PRN Nausea And Vomiting Rifaximin 550 mg 02/14/20 22:00 02/20/20 22:22 Xifaxan PO 03/15/20 22:01 550 mg TID [facility] Administration Sodium Chloride 10 ml 02/18/20 21:00 02/20/20 22:23 Saline Flush IV 10 ml BID [facility] Administration Spironolactone 50 mg 02/14/20 21:00 02/20/20 22:23 Aldactone PO 50 mg BID [facility] Administration Sucralfate 1 gm 02/15/20 07:30 02/20/20 17:20 Carafate PO 1 gm AC-TID [facility] Administration Thiamine HCl 100 mg 02/15/20 09:00 02/20/20 10:54 Vitamin B-1 PO Not Given DAILY [facility] Trimethobenzamide HCl 200 mg 02/16/20 04:54 02/17/20 00:23 Tigan IM 200 mg Q6HR PRN Administration Nausea And Vomiting Objective - Vital Signs Vital signs: Vital Signs Temp 98.2 F 02/21/20 05:15 Pulse 94 02/21/20 05:15 Resp 18 02/21/20 05:15 BP 101/58 02/21/20 05:15 Pulse Ox 94 L 02/21/20 05:15 Intake & Output 02/20/20 02/21/20 02/21/20 18:59 06:59 18:59 Intake Total 1550 1140 Output Total 50 Balance 1500 1140 Weight 112.5 kg Intake: IV 1450 Intake, IV Titration 100 Amount Potassium Chloride 10 meq 100 In Water For Injection 1 100ml.bag @ 100 mls/hr IVPB Q1H [facility] Rx#: [id number] Oral 1140 Output: Estimated Blood Loss 50 Other: Voiding Method Toilet Toilet Urinal Urinal - Exam GENERAL: The patient is alert and oriented x3, not in any acute distress. Well developed, well nourished. HEENT: Pupils are round and equally reacting to light. EOMI. No scleral icterus. No conjunctival pallor. Normocephalic, atraumatic. No pharyngeal erythema. No thyromegaly. CARDIOVASCULAR: S1 and S2 present. No murmurs, rubs, or gallops. PULMONARY: Chest is clear to auscultation, no wheezing or crackles. ABDOMEN: Soft, nontender, nondistended, normoactive bowel sounds. No palpable organomegaly. MUSCULOSKELETAL: No joint swelling or deformity. EXTREMITIES: No cyanosis, clubbing, or pedal edema. NEUROLOGICAL: Gross neurological examination did not reveal any focal deficits. SKIN: No rashes. no petechiae. - Labs CBC & Chem 7: 02/21/20 06:29 02/21/20 06:29 Labs: Abnormal Lab Results - Last 24 Hours (Table) 02/20/20 02/21/20 02/21/20 Range/Units 03:52 06:29 06:29 RBC 2.76 L (4.30-5.90) m/uL Hgb 8.0 L D (13.0-17.5) gm/dL Hct 25.2 L (39.0-53.0) % RDW 15.6 H (11.5-15.5) % Chloride 96 L (98-107) mmol/L Carbon Dioxide 34 H (22-30) mmol/L Creatinine 0.61 L (0.66-1.25) mg/dL Glucose 176 H (74-99) mg/dL Calcium 8.2 L (8.4-10.2) mg/dL Triglycerides 160 H (<150) mg/dL Lipase 405 H (23-300) U/L Assessment and Plan Assessment: -hydrops gallbladder on ultrasound, With a small stones and sludge. Status post open cholecystectomy on 02/19 -Blood loss anemia secondary to surgery, start iron pills -Acute pancreatitis, secondary to gallstone disease. Improving. He is off IV fluids for now. Patient is followed closely by GI team and surgery team -Hepatic encephalopathy, improved and patient mentation is back to normal. Ammonia level was normal. -possible Acute GI bleed with coffee-ground emesis-improving. Hemoglobin is stable. Patient's monitored closely by GI team -Alcoholic cirrhosis. Last alcoholic drink was 5 years ago as per patient -Portal hypertension -Diabetic peripheral neuropathy -Left foot wound secondary to neuropathy-healed -GERD -Large hiatal hernia -LA grade D distal esophagitis, - large hiatal hernia, -gastric antral vascular ectasia DVT prophylaxis: Mechanical, no anticoagulation for possible GI bleed GI prophylaxis Protonix
[2020-02-21] MEDS: SUCRALFATE 1 GM TAB PO SCH ×3 (08:15→16:46)
[2020-02-21] MEDS: FOLIC ACID 1 MG TAB PO SCH (08:15)
[2020-02-21] MEDS: MODAFINIL 200 MG TAB PO SCH ×2 (08:16→16:46)
[2020-02-21] MEDS: RIFAXIMIN 550 MG TABLET PO SCH ×3 (08:16→21:13)
[2020-02-21] MEDS: SPIRONOLACTONE 25 MG TAB PO SCH ×2 (08:16→21:15)
[2020-02-21] MEDS: THIAMINE 100 MG TAB PO SCH (08:16)
[2020-02-21] MEDS: PREGABALIN 100 MG CAP PO SCH ×3 (08:16→16:46)
[2020-02-21] MEDS: LACTULOSE 20 GM/30 ML CUP PO SCH ×3 (08:17→23:16)
[2020-02-21] MEDS: FERROUS SULFATE 325 MG TAB PO SCH ×2 (08:19→16:46)
[2020-02-21] MEDS: ARMODAFINIL 250 MG PO SCH (09:34)
[2020-02-21] MEDS ORDERED: METOCLOPRAMIDE 5 MG/ML 2 ML VIAL IVP STA (10:37)
--- NOTE | 2020-02-21 11:18 | XR ---
EXAMINATION TYPE: XR abdomen 2V DATE OF EXAM: 02/21/2020 COMPARISON: 02/17/2020 INDICATION: Nausea vomiting TECHNIQUE: Single view abdomen upright view. Supine view is obtained. FINDINGS: Nonspecific bowel gas is present within the colon and small bowel loops. No dilated loops of bowel ar e evident. No suspicious air-fluid levels are evident. No differential air-fluid levels are present. No free air is evident. Some mild left lower lobe infiltrate such as atelectasis may be present. Psoas margins are normal. No organomegaly is present. Surgical skin ashley are present over the right upper quadrant. IMPRESSION: 1. Nonspecific abdomen.
[2020-02-21] MEDS: HYDROmorphone 1 MG/ML 1 ML SYRINGE IVP PRN ×4 (13:07→23:38)
--- NOTE | 2020-02-21 13:45 | P.PN ---
Subjective Progress Note Date: 02/21/20 Principal diagnosis: Acute pancreatitis, alcoholic liver disease/cirrhosis, cholelithiasis 49-year-old male patient with history of alcoholism and alcoholic liver disease/cirrhosis, portal hypertension, hyperlipidemia, peripheral neuropathy and previous history of large distal esophagitis and large hiatal hernia along with gastric antral vascular ectasia who presented to the hospital because of nausea and emesis a few days duration and he was diagnosed having an acute pancreatitis. He was admitted on 02/16/2020. He was having some coffee-ground emesis. He was altered and encephalopathic. He was brought into the intensive care unit. NG tube was placed and subsequently taken out. The patient was also given lactulose. The patient as such presented with upper GI bleed. He was being monitored in intensive care unit. He was quite acidotic at time of admission and this was an anion gap metabolic acidosis and was given IV bicarb and his metabolic acidosis subsequently improved. As for his pancreatitis, he was suspected to have gallstone pancreatitis and he was seen by GI due to his acute pancreatitis and decompensated liver disease and encephalopathy. Note t hat the ultrasound of the abdomen showed sludge and stones within the gallbladder that was also had dropping. He was treated for possible gallstone pancreatitis and the recommendation was ultimately to perform a cystectomy once the patient was more medically stable. Gen. surgery was consulted along with gastroenterology. He was in the intensive care unit for essentially supportive care. His mental status improved. The patient is seen today 02/21/2020 in follow-up on the regular medical floor. He is currently resting in bed. Awake and alert in no acute distress. He is having ongoing abdominal discomfort. Postsurgical. He did undergo an open cholecystectomy for gallstone pancreatitis performed yesterday. His abdomen is quite distended. Surgical dressing is dry and intact. Abdominal x-ray today revealed a nonspecific abdomen. He is passing flatus. He was hypoxemic at 73 when trialed on room air. He is currently in the 90s on 4 L/m per nasal cannula. He's been afebrile. White count 5.9. Hemoglobin 8.0. Sodium 137. Potassium 4.5. Creatinine 0.61. Lipase 405. Objective - Vital Signs Vital signs: Vital Signs Temp 98.1 F 02/21/20 10:30 Pulse 98 02/21/20 10:40 Resp 22 05/12/20 10:40 BP 117/75 05/12/20 10:40 Pulse Ox 92 L 02/21/20 10:40 Intake & Output 02/20/20 02/21/20 02/21/20 18:59 06:59 18:59 Intake Total 1550 1140 Output Total 50 Balance 1500 1140 Weight 112.5 kg Intake: IV 1450 Intake, IV Titration 100 Amount Potassium Chloride 10 meq 100 In Water For Injection 1 100ml.bag @ 100 mls/hr IVPB Q1H GRISELDA Rx#: [id number] Oral 1140 Output: Estimated Blood Loss 50 Other: Voiding Method Toilet Toilet Toilet Urinal Urinal Urinal # Voids 2 - Exam GENERAL: The patient is alert and oriented x3, not in any acute distress. Well developed, well nourished. Head exam was generally normal. There was no scleral icterus or corneal arcus. Mucous membranes were moist. HEENT: Pupils are round and equally reacting to light. EOMI. No scleral icterus. No conjunctival pallor. Normocephalic, atraumatic. No pharyngeal erythema. No th yromegaly. CARDIOVASCULAR: S1 and S2 present. No murmurs, rubs, or gallops. PULMONARY: Lungs sounds with bilateral scattered rhonchi. ABDOMEN: Distended, tender, surgical dressing dry and intact. MUSCULOSKELETAL: No joint swelling or deformity. EXTREMITIES: No cyanosis, clubbing, or pedal edema. NEUROLOGICAL: Gross neurological examination did not reveal any focal deficits. Examination of the skin revealed no evidence of significant rashes, suspicious appearing nevi or other concerning lesions. - Labs CBC & Chem 7: 02/21/20 06:29 02/21/20 06:29 Labs: Abnormal Lab Results - Last 24 Hours (Table) 02/21/20 02/21/20 Range/Units 06:29 06:29 RBC 2.76 L (4.30-5.90) m/uL Hgb 8.0 L D (13.0-17.5) gm/dL Hct 25.2 L (39.0-53.0) % RDW 15.6 H (11.5-15.5) % Chloride 96 L (98-107) mmol/L Carbon Dioxide 34 H (22-30) mmol/L Creatinine 0.61 L (0.66-1.25) mg/dL Glucose 176 H (74-99) mg/dL Calcium 8.2 L (8.4-10.2) mg/dL Lipase 405 H (23-300) U/L Assessment and Plan Assessment: 1 acute gallstone pancreatitis, status post open cholecystectomy on 02/20/2020. Postoperative day #1. Lipase 405. 2 alcoholic liver cirrhosis 3 hepatic encephalopathy, improved and the ammonia level back to normal 4 upper GI bleed suspected as the patient was having coffee-ground emesis, improved 5 acute hypoxic respiratory failure post surgical and expected outcome of high abdominal surgery 6 history of alcoholism and his last alcohol drink was around 5 years ago 7 postoperative hypertension secondary to liver cirrhosis 8 diabetes mellitus 9 diabetic peripheral neuropathy 10 history of left-sided foot wound secondary to neuropathy, healed 11 large hiatal hernia 12 history of distal esophagitis grade D in addition to antral gastric vascular ectasia 13 history of acid reflux 14 history of chronic anemia 15 metabolic acidosis, improved 16 acute kidney injury, improved in the creatinine is normalized 17 hypokalemia, replaced Plan The patient was seen and evaluated by Dr. Vega Add incentive spirometer Encourage increased cough and deep breathing exercises Encourage increased activity as tolerated We'll continue to follow I, the cosigning physician, performed a history & physical examination of the patient. Lungs sounds with bilateral scattered rhonchi. Maintaining good O2 saturations in the 90s on 4 L/m per nasal cannula I discussed the assessment and plan of care with my nurse practitioner, Guillermina Schaeffer. I attest to the above note as dictated by her.
--- NOTE | 2020-02-21 13:55 | P.PN ---
Subjective Progress Note Date: 02/21/20 CHIEF COMPLAINT: Gallstone pancreatitis HISTORY OF PRESENT ILLNESS: Patient is status post open cholecystectomy with Dr. Lerma. Postoperative day #1. Patient examined at the bedside. He reports uncontrolled pain. Patient with an episode of brown emesis earlier today. Patient denies further episodes of vomiting. PHYSICAL EXAM: VITAL SIGNS: Reviewed. GENERAL: Well-developed in no acute distress. HEENT: No sclera icterus. Extraocular movements grossly intact. Moist buccal mucosa. Head is atraumatic, normocephalic. ABDOMEN: Soft. Nondistended. Dressing clean dry and intact. NEUROLOGIC: Alert and oriented. Cranial nerves II through XII grossly intact. ASSESSMENT: 1. Gallstone pancreatitis, status post open cholecystectomy 2. Possible ileus PLAN: -Change diet to NPO -Reglan 10mg Q 6 hours IV -Increase Dilaudid to 1mg every 3 hours for pain control Nurse practitioner note has been reviewed by physician. Signing provider agrees with the documented findings, assessment, and plan of care. Objective - Vital Signs Vital signs: Vital Signs Temp 98.1 F 02/21/20 10:30 Pulse 98 02/21/20 10:40 Resp 22 02/21/20 10:40 BP 117/75 02/21/20 10:40 Pulse Ox 92 L 02/21/20 10:40 Intake & Output 02/20/20 02/21/20 02/21/20 18:59 06:59 18:59 Intake Total 1550 1140 Output Total 50 Balance 1500 1140 Weight 112.5 kg Intake: IV 1450 Intake, IV Titration 100 Amount Potassium Chloride 10 meq 100 In Water For Injection 1 100ml.bag @ 100 mls/hr IVPB Q1H GRISELDA Rx#: [id number] Oral 1140 Output: Estimated Blood Loss 50 Other: Voiding Method Toilet Toilet Toilet Urinal Urinal Urinal # Voids 2 - Labs CBC & Chem 7: 02/21/20 06:29 02/21/20 06:29 Labs: Abnormal Lab Results - Last 24 Hours (Table) 02/21/20 02/21/20 Range/Units 06:29 06:29 RBC 2.76 L (4.30-5.90) m/uL Hgb 8.0 L D (13.0-17.5) gm/dL Hct 25.2 L (39.0-53.0) % RDW 15.6 H (11.5-15.5) % Chloride 96 L (98-107) mmol/L Carbon Dioxide 34 H (22-30) mmol/L Creatinine 0.61 L (0.66-1.25) mg/dL Glucose 176 H (74-99) mg/dL Calcium 8.2 L (8.4-10.2) mg/dL Lipase 405 H (23-300) U/L
[2020-02-21] MEDS: METOCLOPRAMIDE 5 MG/ML 2 ML VIAL IVP SCH ×2 (17:05→23:29)
--- NOTE | 2020-02-21 17:36 | PN ---
PROGRESS NOTE DATE OF DICTATION: 02/21/2020 This patient is a 49-year-old pleasant white male admitted to the hospital with acute gallstone pancreatitis and history of alcoholic cirrhosis of the liver. He underwent open cholecystectomy by Dr. Lerma yesterday. This morning he is complaining of abdominal pain, abdominal distention. He continues to remain n.p.o. No nausea or vomiting. PHYSICAL EXAMINATION: Appears comfortable. No apparent distress. VITAL SIGNS: Stable. Blood pressure 117/75, pulse rate 98, temperature 98.1. HEENT examination unremarkable. Conjunctivae pink. Sclerae anicteric. Oral cavity no lesions. NECK: No JVD or lymph node enlargement. CHEST: Clear to auscultation. HEART: Regular rate and rhythm. ABDOMEN: Soft. There was mild diffuse tenderness in the epigastric and right upper quadrant area. Stapes noted in the right upper quadrant area. EXTREMITIES: No pedal edema. SKIN: No rashes. NEUROLOGIC: Alert and oriented x3. No focal deficits. LABS: WBC 5, hemoglobin 8, platelets 200. BUN and creatinine are 17 and 0.6, respectively. Lipase is down to 405. IMPRESSION: 1. Acute gallstone pancreatitis with improving lipase, status post open cholecystectomy yesterday by Dr. Lerma. 2. Cirrhosis of the liver that is well compensated. 3. Mild anemia with a stable hemoglobin. 4. Prior history of alcohol use. He quit drinking 5 years ago. RECOMMENDATIONS: 1. Continue with symptomatic and supportive care. 2. Continue with broad-spectrum antibiotics. 3. Continue with Xifaxan and lactulose for history of hepatic encephalopathy. 4. Monitor labs on a daily basis. 5. Will follow with you closely. Thank you for this consultation. MMODL / IJN: [id number] /
[2020-02-21] MEDS: PANTOPRAZOLE 40 MG/10 ML VIAL IVP SCH (18:06)
[2020-02-21 19:04] LABS: Anisocytosis Slight; HCT 24.3 % (39.0-53.0); HGB 7.5 gm/dL (13.0-17.5); Hypochromasia Slight; MCH 28.2 pg (25.0-35.0); MCHC 30.8 g/dL (31.0-37.0); MCV 91.6 fL (80.0-100.0); Mean Platelet Volume 8.4; Platelet Count 229 k/uL (150-450); RBC 2.65 m/uL (4.30-5.90); RDW 16.1 % (11.5-15.5); WBC 9.3 k/uL (3.8-10.6)
[2020-02-21] MEDS: NORTRIPTYLINE 25 MG CAP PO SCH (21:15)
[2020-02-22] MEDS: HYDROmorphone 1 MG/ML 1 ML SYRINGE IVP PRN ×5 (04:50→23:26)
[2020-02-22] MEDS: ONDANSETRON 4 MG/2 ML VIAL IVP SCH ×4 (05:35→23:23)
[2020-02-22] MEDS: METOCLOPRAMIDE 5 MG/ML 2 ML VIAL IVP SCH ×4 (05:35→23:23)
[2020-02-22 06:59] LABS: Anisocytosis Slight; Basophils % (A) 0 %; Eosinophils # (A) 0.3 k/uL (0-0.7); Eosinophils % (A) 5 %; HCT 22.4 % (39.0-53.0); HGB 7.2 gm/dL (13.0-17.5); Hypochromasia Slight; Lymphocytes # (A) 1.1 k/uL (1.0-4.8); Lymphocytes % (A) 19 %; MCH 29.5 pg (25.0-35.0); MCHC 32.1 g/dL (31.0-37.0); MCV 91.7 fL (80.0-100.0); Mean Platelet Volume 8.4; Monocytes # (A) 0.5 k/uL (0-1.0); Monocytes % (A) 9 %; Neutrophils # (A) 3.5 k/uL (1.3-7.7); Neutrophils % (A) 64 %; Platelet Count 213 k/uL (150-450); RBC 2.45 m/uL (4.30-5.90); RDW 16.5 % (11.5-15.5); WBC 5.5 k/uL (3.8-10.6)
[2020-02-22 07:11] LABS: African American GFR (CKD) >90 (>60 ml/min/1.73 sqM); Anion Gap 7 mmol/L; Blood Urea Nitrogen 15 mg/dL (9-20); Calcium 8.2 mg/dL (8.4-10.2); Carbon Dioxide 34 mmol/L (22-30); Chloride 97 mmol/L (98-107); Glucose 169 mg/dL (74-99); Non-African American GFR(CKD) >90 (>60 ml/min/1.73 sqM); Potassium 4.1 mmol/L (3.5-5.1); Sodium 138 mmol/L (137-145)
[2020-02-22] MEDS: PANTOPRAZOLE 40 MG/10 ML VIAL IVP SCH ×2 (08:04→21:39)
[2020-02-22] MEDS: SUCRALFATE 1 GM TAB PO SCH ×3 (08:05→17:51)
[2020-02-22] MEDS: PREGABALIN 100 MG CAP PO SCH ×3 (08:05→17:51)
[2020-02-22] MEDS: FOLIC ACID 1 MG TAB PO SCH (08:05)
[2020-02-22] MEDS: SPIRONOLACTONE 25 MG TAB PO SCH ×2 (08:05→21:40)
[2020-02-22] MEDS: MODAFINIL 200 MG TAB PO SCH ×2 (08:05→17:51)
[2020-02-22] MEDS: THIAMINE 100 MG TAB PO SCH (08:05)
[2020-02-22] MEDS: FERROUS SULFATE 325 MG TAB PO SCH ×2 (08:05→17:51)
[2020-02-22] MEDS: BUPRENORPHINE HCL 8 MG SUBLINGUAL SCH ×4 (08:18→21:38)
[2020-02-22] MEDS ORDERED: HYDROmorphone 1 MG/ML 1 ML SYRINGE IVP STA (08:56)
[2020-02-22] MEDS ORDERED: HYDROmorphone 0.5 MG/0.5 ML SYRINGE IVP PRN (08:59)
--- NOTE | 2020-02-22 09:03 | P.PN ---
Subjective This is a pleasant 49-year-old patient of Dr. ortiz. Chronic stable medical conditions include alcoholic cirrhosis, portal hypertension, hyperlipidemia, peripheral neuropathy. EGD earlier this year showed a leg grade D distal esophagitis, large hiatal hernia, gastric antral vascular ectasia and and there was no esophageal varices. Patient now presents with nausea vomiting for 2 days. No blood in the vomitus. No fever no chills no cough. Normally has a bowel movement daily. Denies any abdominal pain. Patient also had recently foot wounds that have now healed. Tired rundown. Admitted with acute pancreatitis.on February 15 patient started vomiting repeatedly. Had coffee-ground emesis. Became encephalopathic. Moved to the ICU. Twice NG tube was placed that he took out. Placed on rectal lactulose Today-ICU. Pain on rectal lactulose. More awake. No further vomiting. Nothing by mouth. Ammonia started to come down.on IV fluids and IV bicarbonate drip. 02/18/2020, patient is seen and examined today in the ICU Patient was admitted for gallstone pancreatitis and hepatic encephalopathy in view of history of alcoholic liver cirrhosis, his last drink was about 5 days ago as per patient. Patient today is more awake and oriented to time place and person, he was updated why he was in the hospital. He denies chest pain or abd ominal pain. No dyspnea or cough and created. He tolerated his diet with no nausea vomiting. He is passing gas and he had one bowel movement yesterday. NG tube was taking of for his ileus which looks improving, he is hemodynamically stable. His leukocytosis came back to normal at 6.6K, creatinine back to normal at 0.5. 111 back to normal at 27 and lipase down to 1704. Patient is being downgraded to general medical floor 02/19/2020 Patient seen and examined in the ICU. He is doing better, his mentation is intact. He is mobile and able to tolerate his diet with little achy abdominal pain He just had his second bowel movement which looks good. The plan for cholecystectomy by surgery team sometime this coming week DC Iyer catheter placed on admission and check a bladder scan Vitals and labs reviewed looks stable, lipase trended down to 982 Patient may be transferred out of the ICU 02/20/2020 Patient remains clinically stable, awake and alert. No chest pain or dyspnea. His vitals remained stable and afebrile. Labs show WBC 3.7K, hemoglobin 10.0, and a pleasant creatinine normal Patient is going for lap cholecystectomy today 02/21/2020 Patient is fully awake oriented. He is status post open cholecystectomy. Today is postop day #1 He was able to be toilet of his breakfast, he has significant pain at the surgical site with RUQ wound looks intact with dressing in place Patient is able to void with no difficulty after discontinuing the Iyer catheter Vitals are stable, WBC is 5.9k, hemoglobin dropped from 10.0 down to 8.0 postoperatively. Electrolytes and creatinine are within normal limits. Strength is down to 404 02/22/2020 Patient still distress due to significant severe abdominal pain for 07/21, with no nausea vomiting, he is passing gases but no bowel movement with abdominal tenderness mainly around the surgical site. Patient still nothing by mouth. He has no fever since yesterday, no leukocytosis. Electrolytes and creatinine is within normal limits, sugar controlled. Patient is on pain medicine and extra dose of Dilaudid is provided. Is also on Protonix IV. Hemoglobin at 7.2 No muscle and was increased to 100 mL per hour, blood pressure is borderline 98/61, probably due to his medical problems, surgical blood loss and decreased oral intake without pain medication. Review of systems CONSTITUTIONAL: No fever, no malaise, no fatigue. HEENT: No recent visual problems or hearing problems. Denied any sore throat. CARDIOVASCULAR: No orthopnea, PND, no palpitations, no syncope. PULMONARY: No shortness of breath, no cough, no hemoptysis. NEUROLOGICAL: No headaches, no weakness, no numbness. HEMATOLOGICAL: Denies any bleeding or petechiae. GENITOURINARY: Denies any burning micturition, frequency, or urgency. MUSCULOSKELETAL/RHEUMATOLOGICAL: Denies any joint pain, swelling, or any muscle pain. ENDOCRINE: Denies any polyuria or polydipsia. Active Medications Generic Name Dose Route Start Last Admin Trade Name Freq PRN Reason Stop Dose Admin Artificial Tears 1 drops 02/20/20 11:18 Artificial Tear Drops BOTH EYES QID PRN Dry Eye(s) Ferrous Sulfate 325 mg 02/21/20 08:15 02/22/20 08:05 Feosol PO 325 mg BID-W/MEALS GRISELDA Administration Folic Acid 1 mg 02/15/20 09:00 02/22/20 08:05 Folic Acid PO 1 mg DAILY GRISELDA Administration Hydromorphone HCl 1 mg 02/21/20 12:58 02/22/20 04:50 Dilaudid IVP 1 mg Q3HR PRN Administration Pain Hydromorphone HCl 0.5 mg 02/22/20 08:59 Dilaudid IVP Q2HR PRN Breakthrough Pain Lactulose 20 gm 02/18/20 00:00 02/21/20 23:16 Cephulac PO Not Given Q8H GRISELDA Metoclopramide HCl 10 mg 02/21/20 18:00 02/22/20 05:35 Reglan IVP 10 mg Q6HR GRISELDA Administration Modafinil 200 mg 02/15/20 17:30 02/22/20 08:05 Provigil PO 200 mg AC-BID GRISELDA Administration Naloxone HCl 0.2 mg 02/14/20 14:05 Narcan IV Q2M PRN Opioid Reversal Patient's Own Med ( 250 mg 02/15/20 09:00 02/21/20 09:34 Armodafinil [Nuvigil PO Not Given ] 250 Mg) DAILY GRISELDA Patient's Own Med ( 8 mg 02/15/20 12:30 02/22/20 08:18 Buprenorphine Hcl [ SUBLINGUAL 8 mg Subutex] 8 Mg) ACHS GRISELDA Administration Nortriptyline HCl 50 mg 02/14/20 21:00 02/21/20 21:15 Pamelor PO 50 mg HS GRISELDA Administration Ondansetron HCl 4 mg 02/15/20 12:00 02/22/20 05:35 Zofran IVP 4 mg Q6HR GRISELDA Administration Pantoprazole Sodium 40 mg 02/21/20 18:15 02/22/20 08:04 Protonix IVP 40 mg BID GRISELDA Administration Pregabalin 200 mg 02/14/20 20:32 02/22/20 08:05 Lyrica PO 200 mg AC-TID GRISELDA Administration Prochlorperazine Maleate 5 mg 02/16/20 04:54 Compazine PO Q8HR PRN Nausea And Vomiting Rifaximin 550 mg 02/14/20 22:00 02/21/20 21:13 Xifaxan PO 03/15/20 22:01 550 mg TID GRISELDA Administration Sodium Chloride 10 ml 02/18/20 21:00 02/21/20 22:17 Saline Flush IV 10 ml BID GRISELDA Administration Spironolactone 50 mg 02/14/20 21:00 02/22/20 08:05 Aldactone PO 50 mg BID GRISELDA Administration Sucralfate 1 gm 02/15/20 07:30 02/22/20 08:05 Carafate PO 1 gm AC-TID GRISELDA Administration Thiamine HCl 100 mg 02/15/20 09:00 02/22/20 08:05 Vitamin B-1 PO 100 mg DAILY GRISELDA Administration Trimethobenzamide HCl 200 mg 02/16/20 04:54 02/17/20 00:23 Tigan IM 200 mg Q6HR PRN Administration Nausea And Vomiting Objective - Vital Signs Vital signs: Vital Signs Temp 98.4 F 02/22/20 04:47 Pulse 95 02/22/20 04:47 Resp 18 02/22/20 04:47 BP 98/61 02/22/20 04:47 Pulse Ox 92 L 02/22/20 04:47 Intake & Output 02/21/20 02/22/20 02/22/20 18:59 06:59 18:59 Intake Total 0 Output Total 400 Balance -400 Intake: Oral 0 Output: Urine 400 Other: Voiding Method Toilet Toilet Urinal Urinal # Voids 2 - Exam GENERAL: The patient is alert and oriented x3, not in any acute distress. Well developed, well nourished. HEENT: Pupils are round and equally reacting to light. EOMI. No scleral icterus. No conjunctival pallor. Normocephalic, atraumatic. No pharyngeal erythema. No thyromegaly. CARDIOVASCULAR: S1 and S2 present. No murmurs, rubs, or gallops. PULMONARY: Chest is clear to auscultation, no wheezing or crackles. ABDOMEN: Soft, nontender, nondistended, normoactive bowel sounds. No palpable organomegaly. MUSCULOSKELETAL: No joint swelling or deformity. EXTREMITIES: No cyanosis, clubbing, or pedal edema. NEUROLOGICAL: Gross neurological examination did not reveal any focal deficits. SKIN: No rashes. no petechiae. - Labs CBC & Chem 7: 02/22/20 05:55 02/22/20 05:55 Labs: Abnormal Lab Results - Last 24 Hours (Table) 05/12/20 05/13/20 05/13/20 Range/Units 18:48 05:55 05:55 RBC 2.65 L 2.45 L (4.30-5.90) m/uL Hgb 7.5 L 7.2 L (13.0-17.5) gm/dL Hct 24.3 L 22.4 L (39.0-53.0) % MCHC 30.8 L (31.0-37.0) g/dL RDW 16.1 H 16.5 H (11.5-15.5) % Chloride 97 L (98-107) mmol/L Carbon Dioxide 34 H (22-30) mmol/L Creatinine 0.58 L (0.66-1.25) mg/dL Glucose 169 H (74-99) mg/dL Calcium 8.2 L (8.4-10.2) mg/dL Assessment and Plan Assessment: -hydrops gallbladder on ultrasound, With a small stones and sludge. Status post open cholecystectomy on 02/19 -Blood loss anemia secondary to surgery, start iron pills -Acute pancreatitis, secondary to gallstone disease. Improving. Patient is followed closely by GI team and surgery team -Hepatic encephalopathy, improved and patient mentation is back to normal. Ammonia level was normal. -possible Acute GI bleed with coffee-ground emesis-improving. Hemoglobin is stable. Patient's monitored closely by GI team -Alcoholic cirrhosis. Last alcoholic drink was 5 years ago as per patient -Portal hypertension -Diabetic peripheral neuropathy -Left foot wound secondary to neuropathy-healed -GERD -Large hiatal hernia -LA grade D distal esophagitis, - large hiatal hernia, -gastric antral vascular ectasia DVT prophylaxis: Mechanical, no anticoagulation for possible GI bleed GI prophylaxis Protonix
[2020-02-22] MEDS: ARMODAFINIL 250 MG PO SCH (10:18)
[2020-02-22] MEDS: LACTULOSE 20 GM/30 ML CUP PO SCH ×3 (10:18→23:23)
[2020-02-22] MEDS: RIFAXIMIN 550 MG TABLET PO SCH ×3 (10:22→21:39)
[2020-02-22] MEDS: SODIUM CHLORIDE 0.9% 1,000 ML IV SCH ×2 (10:22→23:23)
--- NOTE | 2020-02-22 11:19 | P.PN ---
Subjective Progress Note Date: 02/22/20 CHIEF COMPLAINT: Gallstone pancreatitis HISTORY OF PRESENT ILLNESS: Patient is status post open cholecystectomy with Dr. Lerma. Postoperative day #2. Patient examined at the bedside with Dr. Lerma. Patient reports pain 10/10 today but also reports it is slightly improved from yesterday. He reports two episodes of emesis overnight. He denies nausea or vomiting this morning. Patient is passing flatus. He has not been OOB today. Hemoglobin 7.2. PHYSICAL EXAM: VITAL SIGNS: Reviewed. GENERAL: Well-developed in no acute distress. HEENT: No sclera icterus. Extraocular movements grossly intact. Moist buccal mucosa. Head is atraumatic, normocephalic. ABDOMEN: Soft. Mildly distended. Dressing clean dry and intact. NEUROLOGIC: Alert and oriented. Cranial nerves II through XII grossly intact. ASSESSMENT: 1. Gallstone pancreatitis, status post open cholecystectomy 2. Possible ileus PLAN: Trial clear liquid diet. Begin IV fluids at 75cc/hr due to patient being NPO overnight and decreased oral intake Continue IV reglan Patient encouraged to be OOB today and in the chair Incentive spirometer Pain control. Add 0.5mg Dilaudid q2 hours [address] Lerma for breakthrough pain Monitor hemoglobin. Repeat in AM. No further intervention regarding anemia at this time per Dr. Lerma Nurse practitioner note has been reviewed by physician. Signing provider agrees with the documented findings, assessment, and plan of care. Objective - Vital Signs Vital signs: Vital Signs Temp 98.4 F 02/22/20 04:47 Pulse 95 02/22/20 04:47 Resp 18 02/22/20 04:47 BP 98/61 02/22/20 04:47 Pulse Ox 92 L 02/22/20 04:47 Intake & Output 02/21/20 02/22/20 02/22/20 18:59 06:59 18:59 Intake Total 0 Output Total 400 Balance -400 Intake: Oral 0 Output: Urine 400 Other: Voiding Method Toilet Toilet Urinal Urinal # Voids 2 - Labs CBC & Chem 7: 02/22/20 05:55 02/22/20 05:55 Labs: Abnormal Lab Results - Last 24 Hours (Table) 02/21/20 02/22/20 02/22/20 Range/Units 18:48 05:55 05:55 RBC 2.65 L 2.45 L (4.30-5.90) m/uL Hgb 7.5 L 7.2 L (13.0-17.5) gm/dL Hct 24.3 L 22.4 L (39.0-53.0) % MCHC 30.8 L (31.0-37.0) g/dL RDW 16.1 H 16.5 H (11.5-15.5) % Chloride 97 L (98-107) mmol/L Carbon Dioxide 34 H (22-30) mmol/L Creatinine 0.58 L (0.66-1.25) mg/dL Glucose 169 H (74-99) mg/dL Calcium 8.2 L (8.4-10.2) mg/dL
--- NOTE | 2020-02-22 14:15 | P.PN ---
Subjective Progress Note Date: 02/22/20 On today's evaluation of 02/22/2020, the patient is feeling well. About pain is under much better control. The incision over the right upper quadrant is dry clean and intact. He is passing gas and bowel activity. He is taking clear liquid diet for now. No abdominal distention. No nausea or vomiting. No emesis. No fever. He remains on Dilaudid 1 mg every 3 hours on a when necessary basis. No altered mentation. He is on normal saline at the rate of 100 mL an hour. Note that the patient has history of alcoholic liver cirrhosis and portal hypertension. He has issues with hyperlipidemia and peripheral neuropathy and previous history of large distal esophagitis and large hiatal hernia along with gastric antral vascular ectasia who presented to the hospital because of nausea and emesis a few days duration and he was diagnosed having an acute pancreatitis. No altered mentation. No hepatic encephalopathy. The white cell count of 5.5 with a hemoglobin level being down to 7.2. Creatinine is at 0.5. Objective - Vital Signs Vital signs: Vital Signs Temp 98.1 F 02/22/20 13:00 Pulse 82 02/22/20 13:00 Resp 16 02/22/20 13:00 BP 98/63 02/22/20 13:00 Pulse Ox 95 02/22/20 13:00 Intake & Output 02/21/20 02/22/20 02/22/20 18:59 06:59 18:59 Intake Total 0 320 Output Total 400 Balance -400 320 Intake: Oral 0 320 Output: Urine 400 Other: Voiding Method Toilet Toilet Toilet Urinal Urinal Urinal # Voids 2 - Exam GENERAL: The patient is alert and oriented x3, not in any acute distress. Well developed, well nourished. Head exam was generally normal. There was no scleral icterus or corneal arcus. Mucous membranes were moist. HEENT: Pupils are round and equally reacting to light. EOMI. No scleral icterus. No conjunctival pallor. Normocephalic, atraumatic. No pharyngeal erythema. No thyromegaly. CARDIOVASCULAR: S1 and S2 present. No murmurs, rubs, or gallops. PULMONARY: Lungs sounds with bilateral scattered rhonchi. ABDOMEN: Distended, tender, surgical dressing dry and intact. There is a scar in the right upper quadrant which is dry clean and intact. No direct tenderness or rebound tensile guarding. There may be some underlying limited amount of ascites. MUSCULOSKELETAL: No joint swelling or deformity. EXTREMITIES: No cyanosis, clubbing, or pedal edema. NEUROLOGICAL: Gross neurological examination did not reveal any focal deficits. No signs of any hepatic encephalopathy. Examination of the skin revealed no evidence of significant rashes, no evidence of any lesions or rashes. - Labs CBC & Chem 7: 02/22/20 05:55 02/22/20 05:55 Labs: Abnormal Lab Results - Last 24 Hours (Table) 02/21/20 02/22/20 02/22/20 Range/Units 18:48 05:55 05:55 RBC 2.65 L 2.45 L (4.30-5.90) m/uL Hgb 7.5 L 7.2 L (13.0-17.5) gm/dL Hct 24.3 L 22.4 L (39.0-53.0) % MCHC 30.8 L (31.0-37.0) g/dL RDW 16.1 H 16.5 H (11.5-15.5) % Chloride 97 L (98-107) mmol/L Carbon Dioxide 34 H (22-30) mmol/L Creatinine 0.58 L (0.66-1.25) mg/dL Glucose 169 H (74-99) mg/dL Calcium 8.2 L (8.4-10.2) mg/dL Assessment and Plan Plan: 1 acute gallstone pancreatitis, status post open cholecystectomy on 02/20/2020. Postoperative day #2. 2 alcoholic liver cirrhosis 3 hepatic encephalopathy, improved and the ammonia level back to normal 4 upper GI bleed suspected as the patient was having coffee-ground emesis, improved, hemoglobin is at 7.2 and there is no evidence of any GI bleed at this point in time. 5 acute hypoxic respiratory failure post surgical and expected outcome of high abdominal surgery 6 history of alcoholism and his last alcohol drink was around 5 years ago 7 postoperative hypertension secondary to liver cirrhosis 8 diabetes mellitus 9 diabetic peripheral neuropathy 10 history of left-sided foot wound secondary to neuropathy, healed 11 large hiatal hernia 12 history of distal esophagitis grade D in addition to antral gastric vascular ectasia 13 history of acid reflux 14 history of chronic anemia 15 metabolic acidosis, improved 16 acute kidney injury, improved in the creatinine is normalized 17 hypokalemia, replaced Plan The patient is recovering nicely from surgery Advance diet as tolerated Dilaudid for pain control IV fluids as the patient is not taking a whole lot of oral intake at this point in time Monitor hemoglobin Incision is dry clean and intact Monitor anemia and hemoglobin is down to 7.2 We'll continue to follow
--- NOTE | 2020-02-22 14:25 | PN ---
PROGRESS NOTE DATE OF DICTATION: 02/22/2020 Patient is a 49-year-old pleasant white male with history of alcoholic cirrhosis, history of hepatic encephalopathy, admitted to hospital with acute gallstone pancreatitis and symptoms are gradually improving. He underwent an open cholecystectomy 2 days ago. He continues to complain of some abdominal pain but is gradually improving. No nausea, vomiting. He did not take his lactulose for 2 days and had no bowel movements in the last 2 days. He denies any fever, chills, or night sweats. PHYSICAL EXAMINATION: Appears comfortable, in no apparent distress. VITAL SIGNS: Stable. Blood pressure is 132/86, pulse rate 95, temperature 98.4. HEENT: Examination unremarkable, conjunctivae are pink, sclerae nonicteric, oral cavity no lesions. NECK: No JVD or lymph node enlargement. CHEST: Clear to auscultation. HEART: Regular rate and rhythm. ABDOMEN: Soft. Bowel sounds are positive. It was slightly distended. EXTREMITIES: No pedal edema. SKIN: No rashes. NEUROLOGIC: Alert and oriented x3. No focal deficits. LABS: WBC 5.5, hemoglobin 7.2, platelets are normal. Basic metabolic panel is within normal limits. ALT and AST were not done today. Ammonia level was 10. T bilirubin alkaline phosphatase of 1 BUN and creatinine are within normal limits. IMPRESSION: 1. Alcoholic cirrhosis of the liver, compensated. 2. History of hepatic encephalopathy. The patient is currently on lactulose, but has been on hold for the last 2 days since he had an open cholecystectomy. We will advise to resume it today. 3. He is also maintained on Xifaxan 550 mg twice daily. 4. Anemia, but clinically no evidence of active bleeding, probably related to anemia of chronic disease and cirrhosis of the liver. 5. Acute gallstone pancreatitis, resolved, status post open cholecystectomy 2 days ago. 6. Gastroesophageal reflux disease. Remains on Protonix 40 mg twice daily. RECOMMENDATION: 1. Start oral lactulose and titrate that he has 2-3 soft bowel movements daily. 2. Continue with Xifaxan. 3. Start on a clear liquid diet and advance as tolerated. 4. Monitor labs on a daily basis. 5. Continue with symptomatic and supportive care. Thank you for this consultation. Will follow with you closely. MMODL / IJN: [id number] /
[2020-02-22] MEDS: NORTRIPTYLINE 25 MG CAP PO SCH (21:41)
[2020-02-23] MEDS: HYDROmorphone 1 MG/ML 1 ML SYRINGE IVP PRN ×6 (02:34→23:08)
[2020-02-23] MEDS: METOCLOPRAMIDE 5 MG/ML 2 ML VIAL IVP SCH ×4 (05:47→23:09)
[2020-02-23] MEDS: ONDANSETRON 4 MG/2 ML VIAL IVP SCH ×4 (05:47→23:08)
[2020-02-23 06:56] LABS: Anisocytosis Slight; Basophils % (A) 0 %; Eosinophils # (A) 0.2 k/uL (0-0.7); Eosinophils % (A) 4 %; HCT 20.3 % (39.0-53.0); Hypochromasia Slight; Lymphocytes # (A) 0.7 k/uL (1.0-4.8); Lymphocytes % (A) 15 %; MCH 29.2 pg (25.0-35.0); MCV 91.1 fL (80.0-100.0); Mean Platelet Volume 8.1; Monocytes # (A) 0.5 k/uL (0-1.0); Monocytes % (A) 11 %; Neutrophils # (A) 3.3 k/uL (1.3-7.7); Neutrophils % (A) 68 %; Platelet Count 181 k/uL (150-450); RBC 2.22 m/uL (4.30-5.90); RDW 16.6 % (11.5-15.5); WBC 4.9 k/uL (3.8-10.6)
[2020-02-23 07:03] LABS: HGB 6.5 gm/dL (13.0-17.5)
[2020-02-23] MEDS: THIAMINE 100 MG TAB PO SCH (08:10)
[2020-02-23] MEDS: FOLIC ACID 1 MG TAB PO SCH (08:10)
[2020-02-23] MEDS: SPIRONOLACTONE 25 MG TAB PO SCH ×2 (08:10→21:20)
[2020-02-23] MEDS: PANTOPRAZOLE 40 MG/10 ML VIAL IVP SCH ×2 (08:10→21:20)
[2020-02-23] MEDS: ARMODAFINIL 250 MG PO SCH (08:11)
[2020-02-23] MEDS: SUCRALFATE 1 GM TAB PO SCH ×3 (08:11→17:47)
[2020-02-23] MEDS: MODAFINIL 200 MG TAB PO SCH ×2 (08:11→17:47)
[2020-02-23] MEDS: BUPRENORPHINE HCL 8 MG SUBLINGUAL SCH ×4 (08:11→21:21)
[2020-02-23] MEDS: PREGABALIN 100 MG CAP PO SCH ×3 (08:11→17:47)
[2020-02-23] MEDS: FERROUS SULFATE 325 MG TAB PO SCH ×2 (08:11→17:47)
[2020-02-23] MEDS: RIFAXIMIN 550 MG TABLET PO SCH ×3 (08:11→21:20)
[2020-02-23] MEDS: LACTULOSE 20 GM/30 ML CUP PO SCH ×3 (08:12→23:10)
[2020-02-23] MEDS: SODIUM CHLORIDE 0.9% 1,000 ML IV SCH ×3 (08:12→23:16)
[2020-02-23 08:19] LABS: African American GFR (CKD) >90 (>60 ml/min/1.73 sqM); Anion Gap 5 mmol/L; Blood Urea Nitrogen 8 mg/dL (9-20); Calcium 8.4 mg/dL (8.4-10.2); Carbon Dioxide 30 mmol/L (22-30); Chloride 99 mmol/L (98-107); Glucose 170 mg/dL (74-99); Non-African American GFR(CKD) >90 (>60 ml/min/1.73 sqM); Potassium 4.4 mmol/L (3.5-5.1); Sodium 134 mmol/L (137-145)
--- NOTE | 2020-02-23 13:20 | P.PN ---
Subjective Progress Note Date: 02/23/20 On today's evaluation of 02/22/2020, the patient is feeling well. About pain is under much better control. The incision over the right upper quadrant is dry clean and intact. He is passing gas and bowel activity. He is taking clear liquid diet for now. No abdominal distention. No nausea or vomiting. No emesis. No fever. He remains on Dilaudid 1 mg every 3 hours on a when necessary basis. No altered mentation. He is on normal saline at the rate of 100 mL an hour. Note that the patient has history of alcoholic liver cirrhosis and portal hypertension. He has issues with hyperlipidemia and peripheral neuropathy and previous history of large distal esophagitis and large hiatal hernia along with gastric antral vascular ectasia who presented to the hospital because of nausea and emesis a few days duration and he was diagnosed having an acute pancreatitis. No altered mentation. No hepatic encephalopathy. The white cell count of 5.5 with a hemoglobin level being down to 7.2. Creatinine is at 0.5. On 02/23/2020, the patient has still recovering from his surgery. His abdomen is nondistended. There may be some underlying ascites. Surgical wound site is dry clean and intact. The patient is still requiring Dilaudid for pain control. The patient has no nausea or vomiting or emesis. Hemoglobin is up to 6.7 the patient will be receiving a unit of packed RBC. Renal function is stable. Electrolytes are all stable. The patient is currently on lactulose and rifaximin for hepatic encephalopathy.. No signs of any altered mental status. He is able to stop on a chair. White cell count is not elevated. Objective - Vital Signs Vital signs: Vital Signs Temp 98.6 F 02/23/20 11:33 Pulse 95 02/23/20 11:33 Resp 18 02/23/20 11:33 BP 110/63 02/23/20 11:33 Pulse Ox 93 L 02/23/20 11:33 Intake & Output 02/22/20 02/23/20 02/23/20 18:59 06:59 18:59 Intake Total 920 1200 0 Balance 920 1200 0 Intake: Intake, IV Titration 400 1000 Amount Sodium Chloride 0.9% 1, 400 1000 000 ml @ 100 mls/hr IV . Q10H [facility] Rx#:[id number] Oral 520 200 Blood Product 0 Rc As-1 Unit 0 [id number] Other: Voiding Method Toilet Toilet Toilet Urinal Urinal Urinal - Exam GENERAL: The patient is alert and oriented x3, not in any acute distress. Well developed, well nourished. Head exam was generally normal. There was no scleral icterus or corneal arcus. Mucous membranes were moist. HEENT: Pupils are round and equally reacting to light. EOMI. No scleral icterus. No conjunctival pallor. Normocephalic, atraumatic. No pharyngeal erythema. No thyromegaly. CARDIOVASCULAR: S1 and S2 present. No murmurs, rubs, or gallops. PULMONARY: Lungs sounds with bilateral scattered rhonchi. ABDOMEN: Distended, tender, surgical dressing dry and intact. There is a scar in the right upper quadrant which is dry clean and intact. No direct tenderness or rebound tensile guarding. There may be some underlying limited amount of ascites. MUSCULOSKELETAL: No joint swelling or deformity. EXTREMITIES: No cyanosis, clubbing, or pedal edema. NEUROLOGICAL: Gross neurological examination did not reveal any focal deficits. No signs of any hepatic encephalopathy. Examination of the skin revealed no evidence of significant rashes, no evidence of any lesions or rashes. - Labs CBC & Chem 7: 02/23/20 06:27 02/23/20 06:27 Labs: Abnormal Lab Results - Last 24 Hours (Table) 02/23/20 02/23/20 02/23/20 Range/Units 06:27 06:27 08:19 RBC 2.22 L (4.30-5.90) m/uL Hgb 6.5 L* (13.0-17.5) gm/dL Hct 20.3 L (39.0-53.0) % RDW 16.6 H (11.5-15.5) % Lymphocytes # 0.7 L (1.0-4.8) k/uL Sodium 134 L (137-145) mmol/L BUN 8 L (9-20) mg/dL Creatinine 0.54 L (0.66-1.25) mg/dL Glucose 170 H (74-99) mg/dL Crossmatch See Detail Assessment and Plan Plan: 1 acute gallstone pancreatitis, status post open cholecystectomy on 02/20/2020. Postoperative day # 3 2 alcoholic liver cirrhosis 3 hepatic encephalopathy, improved and the ammonia level back to normal, still on a combination of Xifaxan and lactulose 4 upper GI bleed suspected as the patient was having coffee-ground emesis, improved, 5 acute hypoxic respiratory failure post surgical and expected outcome of high abdominal surgery 6 history of alcoholism and his last alcohol drink was around 5 years ago 7 postoperative hypertension secondary to liver cirrhosis 8 diabetes mellitus 9 diabetic peripheral neuropathy 10 history of left-sided foot wound secondary to neuropathy, healed 11 large hiatal hernia 12 history of distal esophagitis grade D in addition to antral gastric vascular ectasia 13 history of acid reflux 14 history of chronic anemia 15 metabolic acidosis, improved 16 acute kidney injury, improved in the creatinine is normalized 17 hypokalemia, replaced 18 chronic anemia with interval drop in hemoglobin without signs of any acute bleeding. Rule out dilutional effect. Plan The patient is still recovering from his surgery. He has ongoing abdominal pain for which is requiring Dilaudid. He has positive bowel sounds and is passing flatus at this point in time. The patient will be given a unit of packed RBC Advance diet as tolerated Dilaudid for pain control IV fluids at 50 mL an hour Monitor hemoglobin Incision is dry clean and intact Monitor anemia and hemoglobin We'll continue to follow
--- NOTE | 2020-02-23 15:42 | P.PN ---
Subjective Progress Note Date: 02/23/20 CHIEF COMPLAINT: Gallstone pancreatitis HISTORY OF PRESENT ILLNESS: Patient is status post open cholecystectomy with Dr. Lerma. Postoperative day #3. Patient examined at the bedside with Dr. Lerma. Patient continues to report abdominal pain and is requiring IV Dilaudid but he states his pain has improved since yesterday. Patient is tolerating clear liquid diet. He denies further nausea or episodes of vomiting. He is passing flatus. Hemoglobin 6.5 today. He is receiving 1 unit RBCs PHYSICAL EXAM: VITAL SIGNS: Reviewed. GENERAL: Well-developed in no acute distress. HEENT: No sclera icterus. Extraocular movements grossly intact. Moist buccal mucosa. Head is atraumatic, normocephalic. ABDOMEN: Soft. Distended. Dressing clean dry and intact. NEUROLOGIC: Alert and oriented. Cranial nerves II through XII grossly intact. ASSESSMENT: 1. Gallstone pancreatitis, status post open cholecystectomy 2. Possible ileus PLAN: Advance diet to full liquids Continue IV reglan Patient encouraged to be OOB today and in the chair Incentive spirometer Pain control. Continue IV Dilaudid Monitor hemoglobin. Repeat in AM. Nurse practitioner note has been reviewed by physician. Signing provider agrees with the documented findings, assessment, and plan of care. Objective - Vital Signs Vital signs: Vital Signs Temp 98.8 F 02/23/20 13:38 Pulse 83 02/23/20 13:38 Resp 18 02/23/20 13:38 BP 96/53 02/23/20 13:38 Pulse Ox 93 L 02/23/20 13:38 Intake & Output 02/22/20 02/23/20 02/23/20 18:59 06:59 18:59 Intake Total 920 1200 310 Output Total 550 Balance 920 1200 -240 Weight 112.5 kg Intake: Intake, IV Titration 400 1000 Amount Sodium Chloride 0.9% 1, 400 1000 000 ml @ 100 mls/hr IV . Q10H [facility] Rx#:[id number] Oral 520 200 Blood Product 310 Rc As-1 Unit 310 [id number] Output: Urine 550 Other: Voiding Method Toilet Toilet Toilet Urinal Urinal Urinal - Labs CBC & Chem 7: 02/23/20 06:27 02/23/20 06:27 Labs: Abnormal Lab Results - Last 24 Hours (Table) 02/23/20 02/23/20 02/23/20 Range/Units 06:27 06:27 08:19 RBC 2.22 L (4.30-5.90) m/uL Hgb 6.5 L* (13.0-17.5) gm/dL Hct 20.3 L (39.0-53.0) % RDW 16.6 H (11.5-15.5) % Lymphocytes # 0.7 L (1.0-4.8) k/uL Sodium 134 L (137-145) mmol/L BUN 8 L (9-20) mg/dL Creatinine 0.54 L (0.66-1.25) mg/dL Glucose 170 H (74-99) mg/dL Crossmatch See Detail
--- NOTE | 2020-02-23 19:42 | P.PN ---
Progress Note - Text Progress Note Date: 02/23/20 Chief Complaint: Nausea vomiting History of presenting complaint: [Patient was seen by me in the ER] This is a pleasant 49-year-old patient of Dr. ortiz. Chronic stable medical conditions include alcoholic cirrhosis, portal hypertension, hyperlipidemia, peripheral neuropathy. EGD earlier this year showed a leg grade D distal esophagitis, large hiatal hernia, gastric antral vascular ectasia and and there was no esophageal varices. Patient now presents with nausea vomiting for 2 days. No blood in the vomitus. No fever no chills no cough. Normally has a bowel movement daily. Denies any abdominal pain. Patient also had recently foot wounds that have now healed. Tired rundown. Admitted with acute pancreatitis.on February 15 patient started vomiting repeatedly. Had coffee-ground emesis. Became encephalopathic. Moved to the ICU. Twice NG tube was placed that he took out. Placed on rectal lactulose. Improved. More out of the ICU.on February 19 underwent open cholecystectomy. Today-having nausea. Some abdominal pain.has been on a clear liquid diet. Bit uncomfortable. Review of systems: Was done for constitutional, cardiovascular, GI, pulmonary. relevant finding as above Active Medications Artificial Tears (Artificial Tear Drops) 1 drops BOTH EYES QID PRN PRN Reason: Dry Eye(s) Ferrous Sulfate (Feosol) 325 mg PO BID-W/MEALS [facility] Last Admin: 02/23/20 17:47 Dose: 325 mg Documented by: Folic Acid (Folic Acid) 1 mg PO DAILY [facility] Last Admin: 02/23/20 08:10 Dose: 1 mg Documented by: Hydromorphone HCl (Dilaudid) 1 mg IVP Q3HR PRN PRN Reason: Pain Last Admin: 02/23/20 19:04 Dose: 1 mg Documented by: Hydromorphone HCl (Dilaudid) 0.5 mg IVP Q2HR PRN PRN Reason: Breakthrough Pain Sodium Chloride (Saline 0.9%) 1,000 mls @ 100 mls/hr IV .Q10H [facility] Last Admin: 02/23/20 17:49 Dose: Not Given Documented by: Lactulose (Cephulac) 20 gm PO Q8H [facility] Last Admin: 02/23/20 16:56 Dose: Not Given Documented by: Metoclopramide HCl (Reglan) 10 mg IVP Q6HR [facility] Last Admin: 02/23/20 17:47 Dose: 10 mg Documented by: Modafinil (Provigil) 200 mg PO AC-BID [facility] Last Admin: 02/23/20 17:47 Dose: 200 mg Documented by: Naloxone HCl (Narcan) 0.2 mg IV Q2M PRN PRN Reason: Opioid Reversal Patient's Own Med ( Armodafinil [Nuvigil ] 250 Mg) 250 mg PO DAILY [facility] Last Admin: 02/23/20 08:11 Dose: Not Given Documented by: Patient's Own Med ( Buprenorphine Hcl [ Subutex] 8 Mg) 8 mg SUBLINGUAL ACHS [facility] Last Admin: 02/23/20 17:47 Dose: 8 mg Documented by: Nortriptyline HCl (Pamelor) 50 mg PO HS [facility] Last Admin: 02/22/20 21:41 Dose: 50 mg Documented by: Ondansetron HCl (Zofran) 4 mg IVP Q6HR [facility] Last Admin: 02/23/20 17:47 Dose: 4 mg Documented by: Pantoprazole Sodium (Protonix) 40 mg IVP BID [facility] Last Admin: 02/23/20 08:10 Dose: 40 mg Documented by: Pregabalin (Lyrica) 200 mg PO AC-TID [facility] Last Admin: 02/23/20 17:47 Dose: 200 mg Documented by: Prochlorperazine Maleate (Compazine) 5 mg PO Q8HR PRN PRN Reason: Nausea And Vomiting Rifaximin (Xifaxan) 550 mg PO TID [facility] Stop: 03/15/20 22:01 Last Admin: 02/23/20 16:54 Dose: 550 mg Documented by: Sodium Chloride (Saline Flush) 10 ml IV BID [facility] Last Admin: 02/23/20 08:11 Dose: 10 ml Documented by: Spironolactone (Aldactone) 50 mg PO BID [facility] Last Admin: 02/23/20 08:10 Dose: 50 mg Documented by: Sucralfate (Carafate) 1 gm PO AC-TID [facility] Last Admin: 02/23/20 17:47 Dose: 1 gm Documented by: Thiamine HCl (Vitamin B-1) 100 mg PO DAILY [facility] Last Admin: 02/23/20 08:10 Dose: 100 mg Documented by: Trimethobenzamide HCl (Tigan) 200 mg IM Q6HR PRN PRN Reason: Nausea And Vomiting Last Admin: 02/17/20 00:23 Dose: 200 mg Documented by: Physical examination: VITAL SIGNS: 98.6, 95, 18, 110/63, 93% on 3 L GENERAL:laying in bed, but uncomfortable EYES: Pupils equal. Conjunctiva pale. HEENT: External appearance of nose and ears normal, oral cavity dry. NECK: JVD not raised; masses not palpable. HEART: First and second heart sounds are normal; no edema. LUNGS: Respiratory rate normal; decreased breath sounds. ABDOMEN: Soft, epigastric tenderness,dressing over the right upper quadrant no guarding or rigidity, liver spleen not palpable, possible hepatomegaly. PSYCH: AO 3, mood affect a bit anxious INVESTIGATIONS, reviewed in the clinical context: white count 4.9 hemoglobin 6.5 potassium 4.4 creatinine 0.54 Previous testing White count 3.4 hemoglobin 12.7 pressure 4.5 creatinine 0.59 Lipase 817 COVID-19 PCR-not detected Abdominal ultrasound-gallbladder hydrops with dependent sludge or small stones and wall thickening. Hepatomegaly Chest x-ray film-grossly reviewed by me no obvious abnormality ammonia 114 Assessment: -Acute pancreatitis,from gallstones , POA- -Acute metabolic acidosis from above., POA- -hepatic encephalopathy-improving -Acute GI bleed with coffee-ground emesis-improving -gallstones leading to open cholecystectomy. -Alcoholic cirrhosis -Portal hypertension -Diabetic peripheral neuropathy -Left foot wound secondary to neuropathy-healed -GERD -Large hiatal hernia -LA grade D distal esophagitis, - large hiatal hernia, -gastric antral vascular ectasia -Anemia secondary to GI blood loss. - Plan: patient been on clear liquids. General surgery advanced as to full liquid. Encouraged the patient to be out of bed. Heating pad ordered for abdominal pain. Drop hemoglobin. one unit of blood being transfuse today.
[2020-02-23] MEDS: NORTRIPTYLINE 25 MG CAP PO SCH (21:19)
[2020-02-24] MEDS ORDERED: FUROSEMIDE 10 MG/ML 4 ML VIAL IV STA ×2 (02:10→10:39)
[2020-02-24] MEDS: METOCLOPRAMIDE 5 MG/ML 2 ML VIAL IVP SCH ×3 (06:23→18:07)
[2020-02-24] MEDS: ONDANSETRON 4 MG/2 ML VIAL IVP SCH ×3 (06:23→18:07)
[2020-02-24 06:55] LABS: Anisocytosis Slight; Basophils % (A) 0 %; Eosinophils # (A) 0.2 k/uL (0-0.7); Eosinophils % (A) 4 %; HCT 22.1 % (39.0-53.0); HGB 7.1 gm/dL (13.0-17.5); Hypochromasia Slight; Lymphocytes # (A) 0.9 k/uL (1.0-4.8); Lymphocytes % (A) 22 %; MCH 29.5 pg (25.0-35.0); MCHC 32.2 g/dL (31.0-37.0); MCV 91.6 fL (80.0-100.0); Mean Platelet Volume 8.4; Monocytes # (A) 0.5 k/uL (0-1.0); Monocytes % (A) 12 %; Neutrophils # (A) 2.4 k/uL (1.3-7.7); Neutrophils % (A) 60 %; Platelet Count 199 k/uL (150-450); RBC 2.41 m/uL (4.30-5.90); RDW 16.1 % (11.5-15.5); WBC 4.1 k/uL (3.8-10.6)
--- NOTE | 2020-02-24 08:24 | XR ---
EXAMINATION TYPE: XR chest 1V DATE OF EXAM: 02/24/2020 COMPARISON: 02/14/2020 HISTORY: Shortness of breath TECHNIQUE: Single frontal view of the chest is obtained. FINDINGS: Prominent interstitium with small bilateral effusions and basilar subsegmental consolidati on. Cardiomegaly noted. No pneumothorax. IMPRESSION: 1. Stable bilateral infiltrate and small effusion correlate for mild central venous congestion or int erstitial pneumonitis.
[2020-02-24] MEDS: MODAFINIL 200 MG TAB PO SCH ×2 (08:29→18:07)
[2020-02-24] MEDS: FOLIC ACID 1 MG TAB PO SCH (08:29)
[2020-02-24] MEDS: PANTOPRAZOLE 40 MG/10 ML VIAL IVP SCH ×2 (08:29→20:57)
[2020-02-24] MEDS: THIAMINE 100 MG TAB PO SCH (08:29)
[2020-02-24] MEDS: FERROUS SULFATE 325 MG TAB PO SCH ×2 (08:29→18:07)
[2020-02-24] MEDS: SPIRONOLACTONE 25 MG TAB PO SCH ×2 (08:29→20:56)
[2020-02-24] MEDS: SUCRALFATE 1 GM TAB PO SCH ×3 (08:29→18:07)
[2020-02-24] MEDS: RIFAXIMIN 550 MG TABLET PO SCH ×3 (08:29→21:02)
[2020-02-24] MEDS: PREGABALIN 100 MG CAP PO SCH ×3 (08:29→18:07)
[2020-02-24] MEDS: BUPRENORPHINE HCL 8 MG SUBLINGUAL SCH ×4 (08:29→20:56)
[2020-02-24] MEDS: ARMODAFINIL 250 MG PO SCH (08:33)
[2020-02-24] MEDS: LACTULOSE 20 GM/30 ML CUP PO SCH ×2 (08:33→16:39)
[2020-02-24 10:00] LABS: Rouleaux Present
[2020-02-24 10:01] LABS: Poikilocytosis (M) Present
--- NOTE | 2020-02-24 11:18 | P.PN ---
Subjective Progress Note Date: 02/24/20 Principal diagnosis: Acute pancreatitis, alcoholic liver disease/cirrhosis, cholelithiasis 49-year-old male patient with history of alcoholism and alcoholic liver disease/cirrhosis, portal hypertension, hyperlipidemia, peripheral neuropathy and previous history of large distal esophagitis and large hiatal hernia along with gastric antral vascular ectasia who presented to the hospital because of nausea and emesis a few days duration and he was diagnosed having an acute pancreatitis. He was admitted on 02/16/2020. He was having some coffee-ground emesis. He was altered and encephalopathic. He was brought into the intensive care unit. NG tube was placed and subsequently taken out. The patient was also given lactulose. The patient as such presented with upper GI bleed. He was being monitored in intensive care unit. He was quite acidotic at time of admission and this was an anion gap metabolic acidosis and was given IV bicarb and his metabolic acidosis subsequently improved. As for his pancreatitis, he was suspected to have gallstone pancreatitis and he was seen by GI due to his acute pancreatitis and decompensated liver disease and encephalopathy. Note t hat the ultrasound of the abdomen showed sludge and stones within the gallbladder that was also had dropping. He was treated for possible gallstone pancreatitis and the recommendation was ultimately to perform a cystectomy once the patient was more medically stable. Gen. surgery was consulted along with gastroenterology. He was in the intensive care unit for essentially supportive care. His mental status improved. The patient is seen today 02/21/2020 in follow-up on the regular medical floor. He is currently resting in bed. Awake and alert in no acute distress. He is having ongoing abdominal discomfort. Postsurgical. He did undergo an open cholecystectomy for gallstone pancreatitis performed yesterday. His abdomen is quite distended. Surgical dressing is dry and intact. Abdominal x-ray today revealed a nonspecific abdomen. He is passing flatus. He was hypoxemic at 73 when trialed on room air. He is currently in the 90s on 4 L/m per nasal cannula. He's been afebrile. White count 5.9. Hemoglobin 8.0. Sodium 137. Potassium 4.5. Creatinine 0.61. Lipase 405. On today's evaluation of 02/22/2020, the patient is feeling well. About pain is under much better control. The incision over the right upper quadrant is dry clean and intact. He is passing gas and bowel activity. He is taking clear liquid diet for now. No abdominal distention. No nausea or vomiting. No emesis. No fever. He remains on Dilaudid 1 mg every 3 hours on a when necessary basis. No altered mentation. He is on normal saline at the rate of 100 mL an hour. Note that the patient has history of alcoholic liver cirrhosis and portal hypertension. He has issues with hyperlipidemia and peripheral neuropathy and previous history of large distal esophagitis and large hiatal hernia along with gastric antral vascular ectasia who presented to the hospital because of nausea and emesis a few days duration and he was diagnosed having an acute pancreatitis. No altered mentation. No hepatic encephalopathy. The white cell count of 5.5 with a hemoglobin level being down to 7.2. Creatinine is at 0.5. On 02/23/2020, the patient has still recovering from his surgery. His abdomen is nondistended. There may be some underlying ascites. Surgical wound site is dry clean and intact. The patient is still requiring Dilaudid for pain control. The patient has no nausea or vomiting or emesis. Hemoglobin is up to 6.7 the patient will be receiving a unit of packed RBC. Renal function is stable. Electrolytes are all stable. The patient is currently on lactulose and rifaximin for hepatic encephalopathy.. No signs of any altered mental status. He is able to stop on a chair. White cell count is not elevated. The patient is seen today 02/24/2020 in follow-up on the regular medical floor. He is currently sitting up in a chair at the bedside. Awake and alert in no acute distress. Earlier this morning approximate 4 AM he developed increasing shortness of breath and hypoxemia. He was given a dose of Lasix and he's diurese well. He is feeling better later this morning. He was up to 8 L high flow nasal cannula currently at 6 L and maintaining O2 saturation in the 90s. W serena count 4.1. Hemoglobin 7.1. Ammonia level 16. He'll receive an additional Lasix around noontime. Objective - Vital Signs Vital signs: Vital Signs Temp 98.6 F 02/24/20 05:00 Pulse 82 02/24/20 05:00 Resp 22 02/24/20 05:00 BP 97/54 02/24/20 05:00 Pulse Ox 96 02/24/20 08:30 Intake & Output 02/23/20 02/24/20 02/24/20 18:59 06:59 18:59 Intake Total 310 900 Output Total 550 3115 Balance -240 -2215 Weight 112.5 kg 113.5 kg Intake: Intake, IV Titration 500 Amount Sodium Chloride 0.9% 1, 500 000 ml @ 100 mls/hr IV . Q10H [facility] Rx#:[id number] Oral 400 Blood Product 310 Rc As-1 Unit 310 [id number] Output: Urine 550 3115 Other: Voiding Method Toilet Toilet Toilet Urinal Urinal Urinal # Voids 2 - Exam GENERAL: The patient is alert and oriented x3, not in any acute distress currently, he did have increasing shortness of breath earlier this morning and received Lasix. On 6 L high flow nasal cannula. Well developed, well nourished. Head exam was generally normal. There was no scleral icterus or corneal arcus. Mucous membranes were moist. HEENT: Pupils are round and equally reacting to light. EOMI. No scleral icterus. No conjunctival pallor. Normocephalic, atraumatic. No pharyngeal erythema. No thyromegaly. CARDIOVASCULAR: S1 and S2 present. No murmurs, rubs, or gallops. PULMONARY: Lungs sounds with bilateral scattered rhonchi, crackles in the posterior bases. ABDOMEN: Distended, tender, surgical dressing dry and intact. MUSCULOSKELETAL: No joint swelling or deformity. EXTREMITIES: No cyanosis, clubbing, or pedal edema. NEUROLOGICAL: Gross neurological examination did not reveal any focal deficits. Examination of the skin revealed no evidence of significant rashes, suspicious appearing nevi or other concerning lesions. - Labs CBC & Chem 7: 02/24/20 05:37 02/23/20 06:27 Labs: Abnormal Lab Results - Last 24 Hours (Table) 02/23/20 02/24/20 Range/Units 08:19 05:37 RBC 2.41 L (4.30-5.90) m/uL Hgb 7.1 L (13.0-17.5) gm/dL Hct 22.1 L (39.0-53.0) % RDW 16.1 H (11.5-15.5) % Lymphocytes # 0.9 L (1.0-4.8) k/uL Crossmatch See Detail Assessment and Plan Assessment: 1 acute gallstone pancreatitis, status post open cholecystectomy on 02/20/2020. 2 acute hypoxic respiratory failure post surgical and expected outcome of high abdominal surgery with episode of fluid 5 overload requiring IV Lasix and currently on 6 L high flow nasal cannula. Chest x-ray reveals stable bilateral infiltrate and small effusion with some mild central venous congestion. 3 hepatic encephalopathy, improved and the ammonia level back to normal 4 upper GI bleed suspected as the patient was having coffee-ground emesis, improved 5 alcoholic liver cirrhosis 6 history of alcoholism and his last alcohol drink was around 5 years ago 7 postoperative hypertension secondary to liver cirrhosis 8 diabetes mellitus 9 diabetic peripheral neuropathy 10 history of left-sided foot wound secondary to neuropathy, healed 11 large hiatal hernia 12 history of distal esophagitis grade D in addition to antral gastric vascular ectasia 13 history of acid reflux 14 history of chronic anemia 15 metabolic acidosis, improved 16 acute kidney injury, improved in the creatinine is normalized 17 hypokalemia, replaced Plan The patient was seen and evaluated by Dr. Vega Chest x-ray reviewed We'll give additional Lasix this afternoon Titrate down the FiO2 as tolerated Continue incentive spirometer Encourage increased cough and deep breathing exercises Encourage increased activity as tolerated We'll continue to follow I, the cosigning physician, performed a history & physical examination of the patient. Lungs sounds with bilateral scattered rhonchi, crackles in the cardiovascular operating room nurse ior bases. Maintaining good O2 saturations in the 90s on 6 L high flow nasal cannula I discussed the assessment and plan of care with my nurse practitioner, Guillermina Schaeffer. I attest to the above note as dictated by her.
--- NOTE | 2020-02-24 14:17 | P.PN ---
Subjective Progress Note Date: 02/24/20 CHIEF COMPLAINT: Gallstone pancreatitis HISTORY OF PRESENT ILLNESS: Patient is status post open cholecystectomy with Dr. Lerma. Postoperative day #4. Patient examined at the bedside with Dr. Lerma. Patient is tolerating full liquid diet. denies nausea or vomiting. hemoglobin 7.1 today after receiving 1 unit RBCs yesterday. PHYSICAL EXAM: VITAL SIGNS: Reviewed. GENERAL: Well-developed in no acute distress. HEENT: No sclera icterus. Extraocular movements grossly intact. Moist buccal mucosa. Head is atraumatic, normocephalic. ABDOMEN: Soft. Distended. Dressing clean dry and intact. NEUROLOGIC: Alert and oriented. Cranial nerves II through XII grossly intact. ASSESSMENT: 1. Gallstone pancreatitis, status post open cholecystectomy 2. Possible ileus PLAN: Advance diet Continue IV reglan Patient encouraged to be OOB today and in the chair Incentive spirometer Pain control. Monitor hemoglobin. Repeat in AM. Nurse practitioner note has been reviewed by physician. Signing provider agrees with the documented findings, assessment, and plan of care. Objective - Vital Signs Vital signs: Vital Signs Temp 98.6 F 02/24/20 05:00 Pulse 82 02/24/20 05:00 Resp 22 02/24/20 05:00 BP 97/54 02/24/20 05:00 Pulse Ox 96 02/24/20 05:00 Intake & Output 02/23/20 02/24/20 02/24/20 18:59 06:59 18:59 Intake Total 310 900 Output Total 550 3115 Balance -240 -2215 Weight 112.5 kg 113.5 kg Intake: Intake, IV Titration 500 Amount Sodium Chloride 0.9% 1, 500 000 ml @ 100 mls/hr IV . Q10H [facility] Rx#:[id number] Oral 400 Blood Product 310 Rc As-1 Unit 310 [id number] Output: Urine 550 3115 Other: Voiding Method Toilet Toilet Toilet Urinal Urinal Urinal # Voids 2 - Labs CBC & Chem 7: 02/24/20 05:37 02/23/20 06:27 Labs: Abnormal Lab Results - Last 24 Hours (Table) 02/23/20 02/24/20 Range/Units 08:19 05:37 RBC 2.41 L (4.30-5.90) m/uL Hgb 7.1 L (13.0-17.5) gm/dL Hct 22.1 L (39.0-53.0) % RDW 16.1 H (11.5-15.5) % Lymphocytes # 0.9 L (1.0-4.8) k/uL Crossmatch See Detail
[2020-02-24] MEDS: SODIUM CHLORIDE 0.9% 1,000 ML IV SCH (15:41)
--- NOTE | 2020-02-24 20:08 | P.PN ---
Progress Note - Text Progress Note Date: 02/24/20 Chief Complaint: Nausea vomiting History of presenting complaint: [Patient was seen by me in the ER] This is a pleasant 49-year-old patient of Dr. ortiz. Chronic stable medical conditions include alcoholic cirrhosis, portal hypertension, hyperlipidemia, peripheral neuropathy. EGD earlier this year showed a leg grade D distal esophagitis, large hiatal hernia, gastric antral vascular ectasia and and there was no esophageal varices. Patient now presents with nausea vomiting for 2 days. No blood in the vomitus. No fever no chills no cough. Normally has a bowel movement daily. Denies any abdominal pain. Patient also had recently foot wounds that have now healed. Tired rundown. Admitted with acute pancreatitis.on February 15 patient started vomiting repeatedly. Had coffee-ground emesis. Became encephalopathic. Moved to the ICU. Twice NG tube was placed that he took out. Placed on rectal lactulose. Improved. More out of the ICU.on February 19 underwent open cholecystectomy. Today-looking much better today. Sitting up in a chair. Her short of breath last night. Given IV Lasix early hours of the morning. IV fluids were discontinued. Did tolerate some diet. Had a bowel movement. Review of systems: Was done for constitutional, cardiovascular, GI, pulmonary. relevant finding as above Active Medications Artificial Tears (Artificial Tear Drops) 1 drops BOTH EYES QID PRN PRN Reason: Dry Eye(s) Ferrous Sulfate (Feosol) 325 mg PO BID-W/MEALS [facility] Last Admin: 02/24/20 18:07 Dose: 325 mg Documented by: Folic Acid (Folic Acid) 1 mg PO DAILY [facility] Last Admin: 02/24/20 08:29 Dose: 1 mg Documented by: Hydromorphone HCl (Dilaudid) 1 mg IVP Q3HR PRN PRN Reason: Pain Last Admin: 02/23/20 23:08 Dose: 1 mg Documented by: Hydromorphone HCl (Dilaudid) 0.5 mg IVP Q2HR PRN PRN Reason: Breakthrough Pain Sodium Chloride (Saline 0.9%) 1,000 mls @ 20 mls/hr IV .Q24H [facility] Last Admin: 02/24/20 15:41 Dose: Not Given Documented by: Lactulose (Cephulac) 20 gm PO Q8H [facility] Last Admin: 02/24/20 16:39 Dose: 20 gm Documented by: Metoclopramide HCl (Reglan) 10 mg IVP Q6HR [facility] Last Admin: 02/24/20 18:07 Dose: 10 mg Documented by: Modafinil (Provigil) 200 mg PO AC-BID [facility] Last Admin: 02/24/20 18:07 Dose: 200 mg Documented by: Naloxone HCl (Narcan) 0.2 mg IV Q2M PRN PRN Reason: Opioid Reversal Patient's Own Med ( Armodafinil [Nuvigil ] 250 Mg) 250 mg PO DAILY [facility] Last Admin: 02/24/20 08:33 Dose: Not Given Documented by: Patient's Own Med ( Buprenorphine Hcl [ Subutex] 8 Mg) 8 mg SUBLINGUAL ACHS [facility] Last Admin: 02/24/20 18:07 Dose: 8 mg Documented by: Nortriptyline HCl (Pamelor) 50 mg PO HS [facility] Last Admin: 02/23/20 21:19 Dose: 50 mg Documented by: Ondansetron HCl (Zofran) 4 mg IVP Q6HR [facility] Last Admin: 02/24/20 18:07 Dose: 4 mg Documented by: Pantoprazole Sodium (Protonix) 40 mg IVP BID [facility] Last Admin: 02/24/20 08:29 Dose: 40 mg Documented by: Pregabalin (Lyrica) 200 mg PO AC-TID [facility] Last Admin: 02/24/20 18:07 Dose: 200 mg Documented by: Prochlorperazine Maleate (Compazine) 5 mg PO Q8HR PRN PRN Reason: Nausea And Vomiting Rifaximin (Xifaxan) 550 mg PO TID [facility] Stop: 03/15/20 22:01 Last Admin: 02/24/20 16:39 Dose: 550 mg Documented by: Sodium Chloride (Saline Flush) 10 ml IV BID [facility] Last Admin: 02/24/20 08:33 Dose: 10 ml Documented by: Spironolactone (Aldactone) 50 mg PO BID [facility] Last Admin: 02/24/20 08:29 Dose: 50 mg Documented by: Sucralfate (Carafate) 1 gm PO AC-TID [facility] Last Admin: 02/24/20 18:07 Dose: 1 gm Documented by: Thiamine HCl (Vitamin B-1) 100 mg PO DAILY [facility] Last Admin: 02/24/20 08:29 Dose: 100 mg Documented by: Trimethobenzamide HCl (Tigan) 200 mg IM Q6HR PRN PRN Reason: Nausea And Vomiting Last Admin: 02/17/20 00:23 Dose: 200 mg Documented by: Physical examination: VITAL SIGNS: 99, 101, 18, 100/58, 96% on 6 L GENERAL: Sitting up in a chair, more awake, more cheerful EYES: Pupils equal. Conjunctiva pale. HEENT: External appearance of nose and ears normal, oral cavity dry. NECK: JVD not raised; masses not palpable. HEART: First and second heart sounds are normal; no edema. LUNGS: Respiratory rate increased; crackles ABDOMEN: Soft, decreased epigastric tenderness,dressing over the right upper quadrant no guarding or rigidity, liver spleen not palpable, possible hepatomegaly. PSYCH: AO 3, mood affect a bit anxious INVESTIGATIONS, reviewed in the clinical context: White count 4.1 hemoglobin 7.1 Chest x-ray film personally reviewed by me-pulmonary edema Previous testing White count 3.4 hemoglobin 12.7 pressure 4.5 creatinine 0.59 Lipase 817 COVID-19 PCR-not detected Abdominal ultrasound-gallbladder hydrops with dependent sludge or small stones and wall thickening. Hepatomegaly Chest x-ray film-grossly reviewed by me no obvious abnormality ammonia 114 Assessment: -Acute pancreatitis,from gallstones , POA- -Acute metabolic acidosis from above., POA- -hepatic encephalopathy-improving -Acute GI bleed with coffee-ground emesis-improving -gallstones leading to open cholecystectomy. -Alcoholic cirrhosis -Portal hypertension -Diabetic peripheral neuropathy -Left foot wound secondary to neuropathy-healed -GERD -Large hiatal hernia -LA grade D distal esophagitis, - large hiatal hernia, -gastric antral vascular ectasia -Anemia secondary to GI blood loss. -Acute pulmonary edema from IV fluids-new diagnosis -Acute hypoxic respiratory failure from pulmonary edema-new diagnosis - Plan: -Patient received a dose of IV Lasix earlier today. A repeat dose of IV Lasix being given this afternoon. IV fluids were closed off. May repeat 1 more dose in the evening. Discussed with the patient. Follow lites.
[2020-02-24] MEDS: NORTRIPTYLINE 25 MG CAP PO SCH (20:57)
[2020-02-25] MEDS: METOCLOPRAMIDE 5 MG/ML 2 ML VIAL IVP SCH ×3 (00:01→12:19)
[2020-02-25] MEDS: ONDANSETRON 4 MG/2 ML VIAL IVP SCH ×3 (00:01→12:19)
[2020-02-25] MEDS: LACTULOSE 20 GM/30 ML CUP PO SCH ×2 (00:14→07:56)
[2020-02-25 05:54] VITALS: BP 100/66; PULSE 89; RESP 18; TEMP 98.3
[2020-02-25 07:07] LABS: Anisocytosis Slight; Basophils % (A) 0 %; Eosinophils # (A) 0.1 k/uL (0-0.7); Eosinophils % (A) 3 %; HCT 24.6 % (39.0-53.0); HGB 7.6 gm/dL (13.0-17.5); Hypochromasia Slight; Lymphocytes # (A) 0.8 k/uL (1.0-4.8); Lymphocytes % (A) 19 %; MCH 28.6 pg (25.0-35.0); MCHC 30.9 g/dL (31.0-37.0); MCV 92.7 fL (80.0-100.0); Mean Platelet Volume 8.6; Monocytes # (A) 0.4 k/uL (0-1.0); Monocytes % (A) 8 %; Neutrophils # (A) 2.9 k/uL (1.3-7.7); Neutrophils % (A) 68 %; Platelet Count 217 k/uL (150-450); RBC 2.65 m/uL (4.30-5.90); RDW 16.5 % (11.5-15.5); WBC 4.3 k/uL (3.8-10.6)
[2020-02-25] MEDS: ARMODAFINIL 250 MG PO SCH (07:38)
[2020-02-25] MEDS: RIFAXIMIN 550 MG TABLET PO SCH (07:54)
[2020-02-25] MEDS: SUCRALFATE 1 GM TAB PO SCH ×2 (07:55→12:19)
[2020-02-25] MEDS: THIAMINE 100 MG TAB PO SCH (07:55)
[2020-02-25] MEDS: SPIRONOLACTONE 25 MG TAB PO SCH (07:55)
[2020-02-25] MEDS: FERROUS SULFATE 325 MG TAB PO SCH (07:55)
[2020-02-25] MEDS: PREGABALIN 100 MG CAP PO SCH ×2 (07:56→12:18)
[2020-02-25] MEDS: PANTOPRAZOLE 40 MG/10 ML VIAL IVP SCH (07:56)
[2020-02-25] MEDS: MODAFINIL 200 MG TAB PO SCH (07:56)
[2020-02-25] MEDS: FOLIC ACID 1 MG TAB PO SCH (07:56)
[2020-02-25] MEDS: BUPRENORPHINE HCL 8 MG SUBLINGUAL SCH (07:57)
--- NOTE | 2020-02-25 10:37 | P.PN ---
Subjective Progress Note Date: 02/25/20 Principal diagnosis: Acute pancreatitis, alcoholic liver disease/cirrhosis, cholelithiasis 49-year-old male patient with history of alcoholism and alcoholic liver disease/cirrhosis, portal hypertension, hyperlipidemia, peripheral neuropathy and previous history of large distal esophagitis and large hiatal hernia along with gastric antral vascular ectasia who presented to the hospital because of nausea and emesis a few days duration and he was diagnosed having an acute pancreatitis. He was admitted on 02/16/2020. He was having some coffee-ground emesis. He was altered and encephalopathic. He was brought into the intensive care unit. NG tube was placed and subsequently taken out. The patient was also given lactulose. The patient as such presented with upper GI bleed. He was being monitored in intensive care unit. He was quite acidotic at time of admission and this was an anion gap metabolic acidosis and was given IV bicarb and his metabolic acidosis subsequently improved. As for his pancreatitis, he was suspected to have gallstone pancreatitis and he was seen by GI due to his acute pancreatitis and decompensated liver disease and encephalopathy. Note t hat the ultrasound of the abdomen showed sludge and stones within the gallbladder that was also had dropping. He was treated for possible gallstone pancreatitis and the recommendation was ultimately to perform a cystectomy once the patient was more medically stable. Gen. surgery was consulted along with gastroenterology. He was in the intensive care unit for essentially supportive care. His mental status improved. The patient is seen today 02/21/2020 in follow-up on the regular medical floor. He is currently resting in bed. Awake and alert in no acute distress. He is having ongoing abdominal discomfort. Postsurgical. He did undergo an open cholecystectomy for gallstone pancreatitis performed yesterday. His abdomen is quite distended. Surgical dressing is dry and intact. Abdominal x-ray today revealed a nonspecific abdomen. He is passing flatus. He was hypoxemic at 73 when trialed on room air. He is currently in the 90s on 4 L/m per nasal cannula. He's been afebrile. White count 5.9. Hemoglobin 8.0. Sodium 137. Potassium 4.5. Creatinine 0.61. Lipase 405. On today's evaluation of 02/22/2020, the patient is feeling well. About pain is under much better control. The incision over the right upper quadrant is dry clean and intact. He is passing gas and bowel activity. He is taking clear liquid diet for now. No abdominal distention. No nausea or vomiting. No emesis. No fever. He remains on Dilaudid 1 mg every 3 hours on a when necessary basis. No altered mentation. He is on normal saline at the rate of 100 mL an hour. Note that the patient has history of alcoholic liver cirrhosis and portal hypertension. He has issues with hyperlipidemia and peripheral neuropathy and previous history of large distal esophagitis and large hiatal hernia along with gastric antral vascular ectasia who presented to the hospital because of nausea and emesis a few days duration and he was diagnosed having an acute pancreatitis. No altered mentation. No hepatic encephalopathy. The white cell count of 5.5 with a hemoglobin level being down to 7.2. Creatinine is at 0.5. On 02/23/2020, the patient has still recovering from his surgery. His abdomen is nondistended. There may be some underlying ascites. Surgical wound site is dry clean and intact. The patient is still requiring Dilaudid for pain control. The patient has no nausea or vomiting or emesis. Hemoglobin is up to 6.7 the patient will be receiving a unit of packed RBC. Renal function is stable. Electrolytes are all stable. The patient is currently on lactulose and rifaximin for hepatic encephalopathy.. No signs of any altered mental status. He is able to stop on a chair. White cell count is not elevated. The patient is seen today 02/24/2020 in follow-up on the regular medical floor. He is currently sitting up in a chair at the bedside. Awake and alert in no acute distress. Earlier this morning approximate 4 AM he developed increasing shortness of breath and hypoxemia. He was given a dose of Lasix and he's diurese well. He is feeling better later this morning. He was up to 8 L high flow nasal cannula currently at 6 L and maintaining O2 saturation in the 90s. W serena count 4.1. Hemoglobin 7.1. Ammonia level 16. He'll receive an additional Lasix around noontime. The patient is seen today 02/25/2020 in follow-up on the regular medical floor. He is awake and alert in no acute distress. Currently sitting up in a chair at the bedside. No shortness of breath, cough or congestion. Maintaining good O2 saturations in the 90s on room air. White count 4.3. Hemoglobin 7.6. His abdominal pain has sided. Abdominal dressing dry and intact. He is hoping to go home today. Objective - Vital Signs Vital signs: Vital Signs Temp 98.3 F 02/25/20 05:00 Pulse 89 02/25/20 05:00 Resp 18 02/25/20 05:00 BP 100/66 02/25/20 05:00 Pulse Ox 94 L 02/25/20 05:00 Intake & Output 02/24/20 02/25/20 02/25/20 18:59 06:59 18:59 Intake Total 1130 Output Total 1000 Balance -1000 1130 Intake: Intake, IV Titration 240 Amount Sodium Chloride 0.9% 1, 240 000 ml @ 20 mls/hr IV . Q24H [facility] Rx#:[id number] Oral 890 Output: Urine 1000 Other: Voiding Method Toilet Toilet Urinal Urinal # Voids 2 - Exam GENERAL: The patient is alert and oriented x3, not in any acute distress currently, he did have increasing shortness of breath earlier this morning and received Lasix. On room air. Well developed, well nourished. Head exam was generally normal. There was no scleral icterus or corneal arcus. Mucous membranes were moist. HEENT: Pupils are round and equally reacting to light. EOMI. No scleral icterus. No conjunctival pallor. Normocephalic, atraumatic. No pharyngeal erythema. No thyromegaly. CARDIOVASCULAR: S1 and S2 present. No murmurs, rubs, or gallops. PULMONARY: Lungs sounds with clear anteriorly faint crackles in the posterior bases. ABDOMEN: Soft, nontender, surgical dressing dry and intact. MUSCULOSKELETAL: No joint swelling or deformity. EXTREMITIES: No cyanosis, clubbing, or pedal edema. NEUROLOGICAL: Gross neurological examination did not reveal any focal deficits. Examination of the skin revealed no evidence of significant rashes, suspicious appearing nevi or other concerning lesions. - Labs CBC & Chem 7: 02/25/20 06:48 02/23/20 06:27 Labs: Abnormal Lab Results - Last 24 Hours (Table) 02/25/20 Range/Units 06:48 RBC 2.65 L (4.30-5.90) m/uL Hgb 7.6 L (13.0-17.5) gm/dL Hct 24.6 L (39.0-53.0) % MCHC 30.9 L (31.0-37.0) g/dL RDW 16.5 H (11.5-15.5) % Lymphocytes # 0.8 L (1.0-4.8) k/uL Assessment and Plan Assessment: 1 acute gallstone pancreatitis, status post open cholecystectomy on 02/20/2020. 2 acute hypoxic respiratory failure post surgical and expected outcome of high abdominal surgery with episode of fluid 5 overload requiring IV Lasix. Chest x- ray reveals stable bilateral infiltrate and small effusion with some mild central venous congestion. On 02/25/2020: The patient has recovered and improved and maintaining O2 saturations in the 90s on room air. 3 hepatic encephalopathy, improved and the ammonia level back to normal 4 upper GI bleed suspected as the patient was having coffee-ground emesis, improved 5 alcoholic liver cirrhosis 6 history of alcoholism and his last alcohol drink was around 5 years ago 7 postoperative hypertension secondary to liver cirrhosis 8 diabetes mellitus 9 diabetic peripheral neuropathy 10 history of left-sided foot wound secondary to neuropathy, healed 11 large hiatal hernia 12 history of distal esophagitis grade D in addition to antral gastric vascular ectasia 13 history of acid reflux 14 history of chronic anemia 15 metabolic acidosis, improved 16 acute kidney injury, improved in the creatinine is normalized 17 hypokalemia, replaced Plan The patient was seen and evaluated by Dr. Vega He is stable from the pulmonary standpoint On room air Continue incentive spirometer Encourage increased cough and deep breathing exercises Encourage increased activity as tolerated I, the cosigning physician, performed a history & physical examination of the patient. Lungs sounds clear anteriorly with faint, crackles in the posterior bases. Maintaining good O2 saturations in the 90s on room air. I discussed the assessment and plan of care with my nurse practitioner, Guillermina Schaeffer. I attest to the above note as dictated by her.
--- NOTE | 2020-02-25 15:25 | P.PN ---
Subjective Progress Note Date: 02/23/20 Principal diagnosis: Alcoholic cirrhosis, gallstone pancreatitis, nausea and vomiting, esophagitis Patient seen lying in bed still reporting some abdominal pain. No nausea or vom iting. Objective - Vital Signs Vital signs: Vital Signs Temp 98.9 F 02/23/20 05:00 Pulse 89 02/23/20 05:00 Resp 18 02/23/20 05:00 BP 103/66 02/23/20 05:00 Pulse Ox 92 L 02/23/20 05:00 Intake & Output 02/22/20 02/23/20 02/23/20 18:59 06:59 18:59 Intake Total 920 1200 Balance 920 1200 Intake: Intake, IV Titration 400 1000 Amount Sodium Chloride 0.9% 1, 400 1000 000 ml @ 100 mls/hr IV . Q10H [facility] Rx#:[id number] Oral 520 200 Other: Voiding Method Toilet Toilet Urinal Urinal - Exam On physical examination, patient appears comfortable in no apparent distress. HEAD: Normocephalic, atraumatic. EYES: No scleral icterus. No conjunctival injection. MOUTH: No lesions, tongue midline. NECK: Trachea midline, no gross abnormalities. ABDOMEN: Soft, obese, appropriately tender to palpation. Bowel sounds are positive. No organomegaly. No guarding or rigidity. EXTREMITIES: No pedal edema. SKIN: No rashes, no jaundice. NEUROLOGIC: Alert and oriented to person, no asterixis noted. No focal deficits. - Labs CBC & Chem 7: 02/25/20 06:48 02/23/20 06:27 Labs: Abnormal Lab Results - Last 24 Hours (Table) 02/23/20 02/23/20 Range/Units 06:27 06:27 RBC 2.22 L (4.30-5.90) m/uL Hgb 6.5 L* (13.0-17.5) gm/dL Hct 20.3 L (39.0-53.0) % RDW 16.6 H (11.5-15.5) % Lymphocytes # 0.7 L (1.0-4.8) k/uL Sodium 134 L (137-145) mmol/L BUN 8 L (9-20) mg/dL Creatinine 0.54 L (0.66-1.25) mg/dL Glucose 170 H (74-99) mg/dL Assessment and Plan (1) Pancreatitis Narrative/Plan: 49-year-old with multiple medical comorbidities including decompensated alcoholic liver disease with encephalopathy and ascites who presented due to nausea vomiting and abdominal pain. Found to have an acute elevation in amylase at 1401 and lipase at 5857. Ultrasound of the abdomen did show findings of sludge and stones with hydropic gallbladder. Currently being treated for possible gallstone pancreatitis and he is status post cholecystectomy. Medical ly stable. Status: Acute Code(s): K85.90 - ACUTE PANCREATITIS WITHOUT NECROSIS OR INFECTION, UNSP SNOMED Code(s): 59466340 (2) Intractable nausea and vomiting Status: Acute Code(s): R11.2 - NAUSEA WITH VOMITING, UNSPECIFIED SNOMED Code(s): 159046315 (3) Abdominal pain Status: Acute Code(s): R10.9 - UNSPECIFIED ABDOMINAL PAIN SNOMED Code(s): 21800315 (4) Alcoholic liver disease Status: Acute Code(s): K70.9 - ALCOHOLIC LIVER DISEASE, UNSPECIFIED SNOMED Code(s): 59217634 Plan: Supportive care Okay for diet as tolerated, sodium restricted Pain control Surgical service following Continue to follow CBC, CMP Continue diuresis with Lasix and Aldactone Continue treatment of encephalopathy with Xifaxan and lactulose Protonix IV Patient is status post cholecystectomy Thank you for allowing us to participate in the care of the patient we will continue to follow
--- NOTE | 2020-02-25 15:27 | P.PN ---
Subjective Progress Note Date: 02/24/20 Principal diagnosis: Alcoholic cirrhosis, gallstone pancreatitis, nausea and vomiting, esophagitis Patient seen sitting bedside. He is reporting that he is feeling somewhat kathryn r. Abdominal pain decreased. Reports bowel movement. No nausea or vomiting. Objective - Vital Signs Vital signs: Vital Signs Temp 98.6 F 02/24/20 05:00 Pulse 82 02/24/20 05:00 Resp 22 02/24/20 05:00 BP 97/54 02/24/20 05:00 Pulse Ox 96 02/24/20 05:00 Intake & Output 02/23/20 02/24/20 02/24/20 18:59 06:59 18:59 Intake Total 310 900 Output Total 550 3115 Balance -240 -2215 Weight 112.5 kg 113.5 kg Intake: Intake, IV Titration 500 Amount Sodium Chloride 0.9% 1, 500 000 ml @ 100 mls/hr IV . Q10H [facility] Rx#:[id number] Oral 400 Blood Product 310 Rc As-1 Unit 310 [id number] Output: Urine 550 3115 Other: Voiding Method Toilet Toilet Toilet Urinal Urinal Urinal # Voids 2 - Exam On physical examination, patient appears comfortable in no apparent distress. HEAD: Normocephalic, atraumatic. EYES: No scleral icterus. No conjunctival injection. MOUTH: No lesions, tongue midline. NECK: Trachea midline, no gross abnormalities. ABDOMEN: Soft, obese, appropriately tender to palpation. Bowel sounds are positive. No organomegaly. No guarding or rigidity. EXTREMITIES: No pedal edema. SKIN: No rashes, no jaundice. NEUROLOGIC: Alert and oriented to person, no asterixis noted. No focal deficits. - Labs CBC & Chem 7: 02/25/20 06:48 02/23/20 06:27 Labs: Abnormal Lab Results - Last 24 Hours (Table) 02/23/20 02/24/20 Range/Units 08:19 05:37 RBC 2.41 L (4.30-5.90) m/uL Hgb 7.1 L (13.0-17.5) gm/dL Hct 22.1 L (39.0-53.0) % RDW 16.1 H (11.5-15.5) % Crossmatch See Detail Assessment and Plan (1) Pancreatitis Narrative/Plan: 49-year-old with multiple medical comorbidities including decompensated alcoholic liver disease with encephalopathy and ascites who presented due to nausea vomiting and abdominal pain. Found to have an acute elevation in amylase at 1401 and lipase at 5857. Ultrasound of the abdomen did show findings of sludge and stones with hydropic gallbladder. Currently being treated for possible gallstone pancreatitis and he is status post cholecystectomy. Medically stable. Status: Acute Code(s): K85.90 - ACUTE PANCREATITIS WITHOUT NECROSIS OR INFECTION, UNSP SNOMED Code(s): 53079799 (2) Intractable nausea and vomiting Status: Acute Code(s): R11.2 - NAUSEA WITH VOMITING, UNSPECIFIED SNOMED Code(s): 126152811 (3) Abdominal pain Status: Acute Code(s): R10.9 - UNSPECIFIED ABDOMINAL PAIN SNOMED Code(s): 86058115 (4) Alcoholic liver disease Status: Acute Code(s): K70.9 - ALCOHOLIC LIVER DISEASE, UNSPECIFIED SNOMED Code(s): 94115492 Plan: Supportive care Okay for diet as tolerated, sodium restricted Pain control Surgical service following Continue to follow CBC, CMP Continue diuresis with Lasix and Aldactone Continue treatment of encephalopathy with Xifaxan and lactulose Protonix IV Patient is status post cholecystectomy Thank you for allowing us to participate in the care of the patient we will continue to follow
--- NOTE | 2020-02-25 15:28 | P.PN ---
Subjective Progress Note Date: 02/25/20 Principal diagnosis: Alcoholic cirrhosis, gallstone pancreatitis, nausea and vomiting, esophagitis Patient seen sitting bedside. He is feeling better and asking for discharge padmini e. No nausea, vomiting or new abdominal pain and he reports bowel movements are normal. Objective - Vital Signs Vital signs: Vital Signs Temp 98.3 F 02/25/20 05:00 Pulse 89 02/25/20 05:00 Resp 18 02/25/20 05:00 BP 100/66 02/25/20 05:00 Pulse Ox 94 L 02/25/20 05:00 Intake & Output 02/24/20 02/25/20 02/25/20 18:59 06:59 18:59 Intake Total 1130 Output Total 1000 Balance -1000 1130 Intake: Intake, IV Titration 240 Amount Sodium Chloride 0.9% 1, 240 000 ml @ 20 mls/hr IV . Q24H [facility] Rx#:[id number] Oral 890 Output: Urine 1000 Other: Voiding Method Toilet Toilet Urinal Urinal # Voids 2 - Exam On physical examination, patient appears comfortable in no apparent distress. HEAD: Normocephalic, atraumatic. EYES: No scleral icterus. No conjunctival injection. MOUTH: No lesions, tongue midline. NECK: Trachea midline, no gross abnormalities. ABDOMEN: Soft, obese, appropriately tender to palpation. Bowel sounds are positive. No organomegaly. No guarding or rigidity. EXTREMITIES: No pedal edema. SKIN: No rashes, no jaundice. NEUROLOGIC: Alert and oriented to person, no asterixis noted. No focal deficits. - Labs CBC & Chem 7: 02/25/20 06:48 02/23/20 06:27 Labs: Abnormal Lab Results - Last 24 Hours (Table) 02/25/20 Range/Units 06:48 RBC 2.65 L (4.30-5.90) m/uL Hgb 7.6 L (13.0-17.5) gm/dL Hct 24.6 L (39.0-53.0) % MCHC 30.9 L (31.0-37.0) g/dL RDW 16.5 H (11.5-15.5) % Lymphocytes # 0.8 L (1.0-4.8) k/uL Assessment and Plan (1) Pancreatitis Narrative/Plan: 49-year-old with multiple medical comorbidities including decompensated alcoholic liver disease with encephalopathy and ascites who presented due to nausea vomiting and abdominal pain. Found to have an acute elevation in amylase at 1401 and lipase at 5857. Ultrasound of the abdomen did show findings of sludge and stones with hydropic gallbladder. Currently being treated for possible gallstone pancreatitis and he is status post cholecystectomy. Medically stable. Status: Acute Code(s): K85.90 - ACUTE PANCREATITIS WITHOUT NECROSIS OR INFECTION, UNSP SNOMED Code(s): 27154449 (2) Intractable nausea and vomiting Status: Acute Code(s): R11.2 - NAUSEA WITH VOMITING, UNSPECIFIED SNOMED Code(s): 939345793 (3) Abdominal pain Status: Acute Code(s): R10.9 - UNSPECIFIED ABDOMINAL PAIN SNOMED Code(s): 95998041 (4) Alcoholic liver disease Status: Acute Code(s): K70.9 - ALCOHOLIC LIVER DISEASE, UNSPECIFIED SNOMED Code(s): 39443343 Plan: Supportive care Okay for diet as tolerated, sodium restricted Pain control Surgical service following Continue to follow CBC, CMP Continue diuresis with Lasix and Aldactone Continue treatment of encephalopathy with Xifaxan and lactulose Protonix IV Patient is status post cholecystectomy Thank you for allowing us to participate in the care of the patient, okay for discharge from gastroenterology standpoint
--- NOTE | 2020-02-25 20:32 | P.DS ---
Providers Date of admission: 02/14/20 14:05 Expected date of discharge: 02/25/20 Attending physician: Janes Blackman Consults: 02/14/20 14:06 Consult Physician Routine Consulting Provider: Sonido Weber Consult Reason/Comments: pancreatitis, sludge gallbladder Do you want consulting provider notified?: Yes 02/14/20 20:44 Consult Physician Routine Consulting Provider: Cirilo Lerma Consult Reason/Comments: Abnormal ultrasound for gallbladder Do you want consulting provider notified?: Yes 02/16/20 13:31 Consult Physician Routine Consulting Provider: Viktor Broderick Consult Reason/Comments: transfer to ICU Do you want consulting provider notified?: Yes Primary care physician: Alexander Randhawa [facility] Course: Chief Complaint: Nausea vomiting History of presenting complaint: [Patient was seen by me in the ER] This is a pleasant 49-year-old patient of Dr. randhawa. Chronic stable medical conditions include alcoholic cirrhosis, portal hypertension, hyperlipidemia, peripheral neuropathy. EGD earlier this year showed a leg grade D distal esophagitis, large hiatal hernia, gastric antral vascular ectasia and and there was no esophageal varices. Patient now presents with nausea vomiting for 2 days. No blood in the vomitus. No fever no chills no cough. Normally has a bowel movement daily. Denies any abdominal pain. Patient also had recently foot wounds that have now healed. Tired rundown. Admitted with acute pancreatitis.on February 15 patient started vomiting repeatedly. Had coffee-ground emesis. Became encephalopathic. Moved to the ICU. Twice NG tube was placed that he took out. Placed on rectal lactulose. Improved. More out of the ICU.on February 19 underwent open cholecystectomy. Patient went into pulmonary edema with IV fluids. Responded well to IV Lasix. Today-doing well. Sitting up. Pulse oxing well on room air. Tolerated diet. Had a bowel movement. Consultation: Dr. Brito from GI Dr. Lerma from general surgery Dr. Brizuela and colleagues from pulmonary Physical examination: VITAL SIGNS: At 8.3, 89, 18, 100/66, 94% on room air GENERAL: Sitting up in a chair, comfortable EYES: Pupils equal. Conjunctiva pale. HEENT: External appearance of nose and ears normal, oral cavity dry. NECK: JVD not raised; masses not palpable. HEART: First and second heart sounds are normal; no edema. LUNGS: Rate normal, lungs are clear ABDOMEN: Soft, no tenderness,dressing over the right upper quadrant no guarding or rigidity, liver spleen not palpable, possible hepatomegaly. PSYCH: AO 3, mood affect a bit anxious INVESTIGATIONS, reviewed in the clinical context: Potassium 4.3 hemoglobin 7.6 Previous testing White count 3.4 hemoglobin 12.7 pressure 4.5 creatinine 0.59 Lipase 817 COVID-19 PCR-not detected Abdominal ultrasound-gallbladder hydrops with dependent sludge or small stones and wall thickening. Hepatomegaly Chest x-ray film-grossly reviewed by me no obvious abnormality ammonia 114 Assessment: -Acute pancreatitis,from gallstones , POA- -Acute metabolic acidosis from above., POA- -hepatic encephalopathy-improving -Acute GI bleed with coffee-ground emesis- -gallstones leading to open cholecystectomy. -Alcoholic cirrhosis -Portal hypertension -Diabetic peripheral neuropathy -Left foot wound secondary to neuropathy-healed -GERD -Large hiatal hernia -LA grade D distal esophagitis, - large hiatal hernia, -gastric antral vascular ectasia -Anemia secondary to GI blood loss. -Acute pulmonary edema from IV fluids-new diagnosis-. Improved -Acute hypoxic respiratory failure from pulmonary edema-new diagnosis-improved - Disposition: Home Patient Condition at Discharge: Stable Plan - Discharge Summary Discharge Rx Participant: No New Discharge Prescriptions: New Ferrous Sulfate [Iron (65 MG Elemental)] 325 mg PO BID-W/MEALS tab Continue Thiamine [Vitamin B-1] 100 mg PO DAILY #30 tab Modafinil [Provigil] 200 mg PO BID Folic Acid 1 mg PO DAILY Lactulose [Constulose] 20 gm PO AC-TID Spironolactone [Aldactone] 50 mg PO BID Nortriptyline [Pamelor] 50 mg PO HS Furosemide [Lasix] 20 mg PO DAILY Buprenorphine HCl [Subutex] 8 mg SL ACHS Rifaximin [Xifaxan] 550 mg PO TID Sucralfate [Carafate] 1 gm PO AC-TID 30 Days #90 tab Pregabalin [Lyrica] 200 mg PO AC-TID Omeprazole [PriLOSEC] 40 mg PO DAILY Armodafinil [Nuvigil] 250 mg PO DAILY Discharge Medication List Thiamine [Vitamin B-1] 100 mg PO DAILY #30 tab 11/06/16 [Rx] Folic Acid 1 mg PO DAILY 08/09/18 [History] Lactulose [Constulose] 20 gm PO AC-TID 05/20/18 [History] Modafinil [Provigil] 200 mg PO BID 05/20/18 [History] Buprenorphine HCl [Subutex] 8 mg SL ACHS 11/21/19 [History] Furosemide [Lasix] 20 mg PO DAILY 11/21/19 [History] Nortriptyline [Pamelor] 50 mg PO HS 11/21/19 [History] Rifaximin [Xifaxan] 550 mg PO TID 11/21/19 [History] Spironolactone [Aldactone] 50 mg PO BID 11/21/19 [History] Sucralfate [Carafate] 1 gm PO AC-TID 30 Days #90 tab 11/25/19 [Rx] Armodafinil [Nuvigil] 250 mg PO DAILY 02/14/20 [History] Omeprazole [PriLOSEC] 40 mg PO DAILY 02/14/20 [History] Pregabalin [Lyrica] 200 mg PO AC-TID 02/14/20 [History] Ferrous Sulfate [Iron (65 MG Elemental)] 325 mg PO BID-W/MEALS tab 02/25/20 [Rx] Follow up Appointment(s)/Referral(s): Alexander Randhawa MD [Primary Care Provider] - 1-2 days (Office is closed at time of discharge, patient to call for appt Thursday ) [facility] Visiting Nurse, [NON-STAFF] - Cirilo Lerma MD [STAFF PHYSICIAN] - 1 Week (Office is closed at time of discharge, patient to call for appt Thursday ) Patient Instructions/Handouts: Pancreatitis (ED) Activity/Diet/Wound Care/Special Instructions: cbc-bmp -4 days Discharge Disposition: HOME WITH HOME HEALTH SERVICES
[2020-02-25] MEDS ORDERED: PANTOPRAZOLE 40 MG TABLET PO SCH (21:00)
== END 2020-02-25 13:19 | disposition home health service (06) | DRG 414 ==
LOC: EC 09:33 → 5NMEDONC 14:05 → 2SICU 02-16 15:03 → 5NMEDONC 02-20 11:04
PROVIDERS: ADMIT Hospitalist; ATTEND Hospitalist
PROC: 0FT40ZZ Resection of Gallbladder, Open Approach (ICD-10-PCS; principal; 2020-02-20 07:30)
PROC: 0FJ44ZZ Inspection of Gallbladder, Percutaneous Endoscopic Approach (ICD-10-PCS; principal; 2020-02-20 07:30)
PROC: 30233N1 Transfusion of Nonautologous Red Blood Cells into Peripheral Vein, Percutaneous Approach (ICD-10-PCS; 2020-02-23)
DX: K85.10 Biliary acute pancreatitis without necrosis or infection (principal); J81.0 Acute pulmonary edema; K72.00 Acute and subacute hepatic failure without coma; J96.01 Acute respiratory failure with hypoxia; E87.2 Acidosis; K56.7 Ileus, unspecified; K76.6 Portal hypertension; K82.1 Hydrops of gallbladder; N17.9 Acute kidney failure, unspecified; K92.2 Gastrointestinal hemorrhage, unspecified; K70.31 Alcoholic cirrhosis of liver with ascites; D63.8 Anemia in other chronic diseases classified elsewhere; E11.42 Type 2 diabetes mellitus with diabetic polyneuropathy; Z11.59 Encounter for screening for other viral diseases; D50.0 Iron deficiency anemia secondary to blood loss (chronic); E78.5 Hyperlipidemia, unspecified; E86.0 Dehydration; E87.6 Hypokalemia; K21.0 Gastro-esophageal reflux disease with esophagitis; K31.819 Angiodysplasia of stomach and duodenum without bleeding; K44.9 Diaphragmatic hernia without obstruction or gangrene; K80.20 Calculus of gallbladder without cholecystitis without obstruction; G89.29 Other chronic pain; M54.9 Dorsalgia, unspecified; R32 Unspecified urinary incontinence; I10 Essential (primary) hypertension; Z79.899 Other long term (current) drug therapy; Z79.891 Long term (current) use of opiate analgesic; Z87.01 Personal history of pneumonia (recurrent); Z87.891 Personal history of nicotine dependence; Z83.3 Family history of diabetes mellitus; Z82.0 Family history of epilepsy and other diseases of the nervous system
CPT/HCPCS: 36415; 36600; 71045; 71046; 74018; 74019; 76705; 80048; 80053; 82140; 82150; 82271; 82805; 83690; 84132; 84478; 84484; 85025; 85027; 86850; 86900; 86901; 86920; 87635; 88304; 94760; 96361; 96365; 99285

== ENCOUNTER → 2020-03-01 | Outpatient (CLI) | payer BC, MEDICARE ==
[2020-03-01 10:15] LABS: Anisocytosis Slight; HCT 26.7 % (39.0-53.0); HGB 8.4 gm/dL (13.0-17.5); Hypochromasia Moderate; MCH 29.2 pg (25.0-35.0); MCHC 31.4 g/dL (31.0-37.0); Mean Platelet Volume 9.6; Platelet Count 244 k/uL (150-450); RBC 2.87 m/uL (4.30-5.90); RDW 16.5 % (11.5-15.5); WBC 4.8 k/uL (3.8-10.6)
== END | disposition home or self-care (01) ==
LOC: LABWHC1 08:34
PROVIDERS: ATTEND Surgery
DX: K92.2 Gastrointestinal hemorrhage, unspecified (principal)
CPT/HCPCS: 36415; 85027

== ENCOUNTER → 2020-03-07 | Outpatient (CLI) | payer BC, MEDICARE ==
[~2020-03-07] MED LIST changes: +LACTATED RINGERS 1,000 ML IV NR
[2020-03-07 13:45] VITALS: BP 113/75; PULSE 82; RESP 16; TEMP 97.8
[2020-03-07 14:25] LABS: ALT 8 U/L (4-49); AST 21 U/L (17-59); African American GFR (CKD) >90 (>60 ml/min/1.73 sqM); Alkaline Phosphatase 181 U/L (38-126); Anion Gap 19 mmol/L; Blood Urea Nitrogen 7 mg/dL (9-20); Calcium 9.2 mg/dL (8.4-10.2); Carbon Dioxide 19 mmol/L (22-30); Chloride 100 mmol/L (98-107); Glucose 115 mg/dL (74-99); Non-African American GFR(CKD) >90 (>60 ml/min/1.73 sqM); Potassium 5.1 mmol/L (3.5-5.1); Sodium 138 mmol/L (137-145); Total Bilirubin 0.6 mg/dL (0.2-1.3); Total Protein 7.3 g/dL (6.3-8.2)
[2020-03-07 14:36] LABS: Anisocytosis Slight; HGB 9.7 gm/dL (13.0-17.5); Hypochromasia Marked; MCH 28.4 pg (25.0-35.0); MCHC 29.3 g/dL (31.0-37.0); MCV 97.2 fL (80.0-100.0); Macrocytosis Slight; Mean Platelet Volume 8.7; Platelet Count 392 k/uL (150-450); WBC 4.2 k/uL (3.8-10.6)
== END | disposition home or self-care (01) ==
LOC: PROCWHC3 13:12
PROVIDERS: ATTEND Surgery
DX: E86.0 Dehydration (principal)
CPT/HCPCS: 36415; 80053; 85027; 96360; 96361

== ENCOUNTER 2020-03-10 11:53 | Inpatient (IN) | payer BC ==
[2020-03-10] MEDS ORDERED: SODIUM CHLORIDE 0.9% 2,000 ML IV STA (12:28)
[2020-03-10] MEDS ORDERED: SODIUM CHLORIDE 0.9% 1,000 ML IV STA (12:28)
--- NOTE | 2020-03-10 12:32 | ED ---
Recheck HPI - General Chief Complaint: Recheck/Abnormal Lab/Rx Stated Complaint: post surgery complications Time Seen by Provider: 03/10/20 12:00 Source: EMS, RN notes reviewed, old records reviewed Mode of arrival: EMS Limitations: no limitations - History of Present Illness Initial Comments: This is a 49-year-old male with a history of a recent open cholecystectomy with gallstone pancreatitis th of this month who presents today by EMS with complai nts of the onset 4 days ago of feeling sick with nausea vomiting decreased oral intake no bowel movement. He states he has some abdominal pain no fevers or chills at this time. He states currently the pain is 4/10 in severity dull in nature he was given IV pain medication by paramedics in route to. He is also feeling somewhat nauseated MD Complaint: other - Related Data Home Medications Medication Instructions Recorded Confirmed Folic Acid 1 mg PO DAILY 05/20/18 03/07/20 Lactulose [Constulose] 20 gm PO AC-TID 05/20/18 03/07/20 Modafinil [Provigil] 200 mg PO BID 05/20/18 03/07/20 Buprenorphine HCl [Subutex] 8 mg SL ACHS 11/21/19 03/07/20 Furosemide [Lasix] 20 mg PO DAILY 11/21/19 03/07/20 Nortriptyline [Pamelor] 50 mg PO HS 11/21/19 03/07/20 Rifaximin [Xifaxan] 550 mg PO TID 11/21/19 03/07/20 Spironolactone [Aldactone] 50 mg PO BID 11/21/19 03/07/20 Armodafinil [Nuvigil] 250 mg PO DAILY 02/14/20 03/07/20 Omeprazole [PriLOSEC] 40 mg PO DAILY 02/14/20 03/07/20 Pregabalin [Lyrica] 200 mg PO AC-TID 02/14/20 03/07/20 Previous Rx's Medication Instructions Recorded Thiamine [Vitamin B-1] 100 mg PO DAILY #30 tab 11/06/16 Sucralfate [Carafate] 1 gm PO AC-TID 30 Days #90 tab 11/25/19 Ferrous Sulfate [Iron (65 MG 325 mg PO BID-W/MEALS tab 02/25/20 Elemental)] Allergies Allergy/AdvReac Type Severity Reaction Status Date / Time No Known Allergies Allergy Verified 03/07/20 13:46 Review of Systems ROS Statement: Those systems with pertinent positive or pertinent negative responses have been documented in the HPI. ROS Other: All systems not noted in ROS Statement are negative. Past Medical History Past Medical History: GERD/Reflux, Liver Disease, Pneumonia, Skin Disorder Additional Past Medical History / Comment(s): Past ETOH abuse-has not drank since 2016, ascities with numerous paracenteisi, AMS/high amylase/vented, pancreatitis, chronic anemia, hiatal hernia, neuropathy bilateral legs/feet and has sores bilateral feet with L foot casted, chronic back pain. History of Any Multi-Drug Resistant Organisms: None Reported Past Surgical History: Adenoidectomy, Back Surgery, Hernia Repair, Tonsillectomy Additional Past Surgical History / Comment(s): Open heart surgery to remove glass from heart (fell into glass on a door), low back surgery, R inguinal hernia repair, EGD, I&D L foot wound Past Anesthesia/Blood Transfusion Reactions: No Reported Reaction Past Psychological History: No Psychological Hx Reported Smoking Status: Former smoker - Past Family History Father History Unknown: Yes Family Medical History: Dementia Additional Family Medical History / Comment(s): Father is living. Mother Family Medical History: Diabetes Mellitus Additional Family Medical History / Comment(s): Mother is . General Exam - General Exam Comments Initial Comments: This a well-developed sec appearing male who is awake alert oriented 3 though somewhat lethargic Limitations: no limitations General appearance: lethargic Head exam: Present: atraumatic, normocephalic, normal inspection Eye exam: Present: normal appearance, PERRL, EOMI. Absent: scleral icterus, conjunctival injection, periorbital swelling ENT exam: Present: mucous membranes dry Neck exam: Present: normal inspection. Absent: tenderness, meningismus, lymphadenopathy Respiratory exam: Present: normal lung sounds bilaterally. Absent: respiratory distress, wheezes, rales, rhonchi, stridor Cardiovascular Exam: Present: regular rate, normal rhythm, normal heart sounds. Absent: systolic murmur, diastolic murmur, rubs, gallop, clicks GI/Abdominal exam: Present: soft, tenderness (Mild tenderness palpation of the abdomen a healing right upper quadrant surgical scar no evidence of any wound dehiscence drainage or discharge. ), normal bowel sounds. Absent: distended, guarding, rebound, rigid Rectal exam: Present: deferred Extremities exam: Present: normal inspection, full ROM, normal capillary refill. Absent: tenderness, pedal edema, joint swelling, calf tenderness Back exam: Present: normal inspection Neurological exam: Present: alert, oriented X3, CN II-XII intact Psychiatric exam: Present: normal affect, normal mood Skin exam: Present: warm, dry, intact, normal color. Absent: rash Course Vital Signs 03/10/20 11:56 Temperature 97.9 F Pulse Rate 79 Respiratory 16 Rate Blood Pressure 118/67 O2 Sat by Pulse 97 Oximetry Medical Decision Making - Medical Decision Making I did discuss findings with patient as well as with Dr. Blackman the patient be admitted with GI consultation as well as consultation by Dr. Lerma. - Lab Data Result diagrams: 03/10/20 12:47 03/10/20 12:47 Lab Results 03/10/20 03/10/20 03/10/20 Range/Units 12:47 12:47 12:47 WBC 5.3 (3.8-10.6) k/uL RBC 4.10 L (4.30-5.90) m/uL Hgb 12.2 L (13.0-17.5) gm/dL Hct 40.6 (39.0-53.0) % MCV 99.1 (80.0-100.0) fL MCH 29.8 (25.0-35.0) pg MCHC 30.1 L (31.0-37.0) g/dL RDW 16.8 H (11.5-15.5) % Plt Count 466 H (150-450) k/uL Neutrophils % 84 % Lymphocytes % 11 % Monocytes % 3 % Eosinophils % 1 % Basophils % 0 % Neutrophils # 4.5 (1.3-7.7) k/uL Lymphocytes # 0.6 L (1.0-4.8) k/uL Monocytes # 0.2 (0-1.0) k/uL Eosinophils # 0.0 (0-0.7) k/uL Basophils # 0.0 (0-0.2) k/uL Hypochromasia Marked Anisocytosis Slight Macrocytosis Slight Sodium 139 (137-145) mmol/L Potassium 5.2 H (3.5-5.1) mmol/L Chloride 104 (98-107) mmol/L Carbon Dioxide 10 L (22-30) mmol/L Anion Gap 25 mmol/L BUN 18 (9-20) mg/dL Creatinine 0.76 (0.66-1.25) mg/dL Est GFR (CKD-EPI)AfAm >90 (>60 ml/min/1.73 sqM) Est GFR (CKD-EPI)NonAf >90 (>60 ml/min/1.73 sqM) Glucose 126 H (74-99) mg/dL Plasma Lactic Acid Abhijit 1.0 (0.7-2.0) mmol/L Calcium 10.1 (8.4-10.2) mg/dL Magnesium 2.3 (1.6-2.3) mg/dL Total Bilirubin 0.6 (0.2-1.3) mg/dL AST 19 (17-59) U/L ALT 7 (4-49) U/L Alkaline Phosphatase 202 H (38-126) U/L Ammonia (<30) umol/L Creatine Kinase 24 L (55-170) U/L Troponin I (0.000-0.034) ng/mL Total Protein 8.0 (6.3-8.2) g/dL Albumin 4.2 (3.5-5.0) g/dL Amylase 223 H (30-110) U/L Lipase 682 H (23-300) U/L 03/10/20 03/10/20 Range/Units 12:47 12:47 WBC (3.8-10.6) k/uL RBC (4.30-5.90) m/uL Hgb (13.0-17.5) gm/dL Hct (39.0-53.0) % MCV (80.0-100.0) fL MCH (25.0-35.0) pg MCHC (31.0-37.0) g/dL RDW (11.5-15.5) % Plt Count (150-450) k/uL Neutrophils % % Lymphocytes % % Monocytes % % Eosinophils % % Basophils % % Neutrophils # (1.3-7.7) k/uL Lymphocytes # (1.0-4.8) k/uL Monocytes # (0-1.0) k/uL Eosinophils # (0-0.7) k/uL Basophils # (0-0.2) k/uL Hypochromasia Anisocytosis Macrocytosis Sodium (137-145) mmol/L Potassium (3.5-5.1) mmol/L Chloride (98-107) mmol/L Carbon Dioxide (22-30) mmol/L Anion Gap mmol/L BUN (9-20) mg/dL Creatinine (0.66-1.25) mg/dL Est GFR (CKD-EPI)AfAm (>60 ml/min/1.73 sqM) Est GFR (CKD-EPI)NonAf (>60 ml/min/1.73 sqM) Glucose (74-99) mg/dL Plasma Lactic Acid Abhijit (0.7-2.0) mmol/L Calcium (8.4-10.2) mg/dL Magnesium (1.6-2.3) mg/dL Total Bilirubin (0.2-1.3) mg/dL AST (17-59) U/L ALT (4-49) U/L Alkaline Phosphatase (38-126) U/L Ammonia 84 H (<30) umol/L Creatine Kinase (55-170) U/L Troponin I <0.012 (0.000-0.034) ng/mL Total Protein (6.3-8.2) g/dL Albumin (3.5-5.0) g/dL Amylase (30-110) U/L Lipase (23-300) U/L - EKG Data -: EKG Interpreted by Me EKG shows normal: sinus rhythm (Sinus rhythm of 85. We'll 180 QRS duration 106 QT since QTC 366/435 with exodeviation poor R-wave progression.) - Radiology Data Radiology results: report reviewed (I did review the imaging and report no acute findings.), image reviewed Disposition Clinical Impression: Hepatic encephalopathy, Dehydration, Pancreatitis, Failure to thrive in adult Disposition: ADMITTED IP TO THIS [facility] Condition: Fair Referrals: Alexander Randhawa MD [Primary Care Provider] - 1-2 days
[2020-03-10] MEDS ORDERED: ONDANSETRON 4 MG/2 ML VIAL IVP STA (12:41)
[2020-03-10 13:02] LABS: Anisocytosis Slight; Basophils % (A) 0 %; Eosinophils % (A) 1 %; HCT 40.6 % (39.0-53.0); HGB 12.2 gm/dL (13.0-17.5); Hypochromasia Marked; Lymphocytes # (A) 0.6 k/uL (1.0-4.8); Lymphocytes % (A) 11 %; MCH 29.8 pg (25.0-35.0); MCHC 30.1 g/dL (31.0-37.0); MCV 99.1 fL (80.0-100.0); Macrocytosis Slight; Monocytes # (A) 0.2 k/uL (0-1.0); Monocytes % (A) 3 %; Neutrophils # (A) 4.5 k/uL (1.3-7.7); Neutrophils % (A) 84 %; Platelet Count 466 k/uL (150-450); RDW 16.8 % (11.5-15.5); WBC 5.3 k/uL (3.8-10.6)
[2020-03-10 13:03] LABS: ALT 7 U/L (4-49); AST 19 U/L (17-59); African American GFR (CKD) >90 (>60 ml/min/1.73 sqM); Albumin 4.2 g/dL (3.5-5.0); Alkaline Phosphatase 202 U/L (38-126); Amylase 223 U/L (30-110); Anion Gap 25 mmol/L; Blood Urea Nitrogen 18 mg/dL (9-20); Calcium 10.1 mg/dL (8.4-10.2); Carbon Dioxide 10 mmol/L (22-30); Chloride 104 mmol/L (98-107); Creatine Kinase 24 U/L (55-170); Glucose 126 mg/dL (74-99); Magnesium 2.3 mg/dL (1.6-2.3); Non-African American GFR(CKD) >90 (>60 ml/min/1.73 sqM); Potassium 5.2 mmol/L (3.5-5.1); Sodium 139 mmol/L (137-145); Total Bilirubin 0.6 mg/dL (0.2-1.3)
--- NOTE | 2020-03-10 13:07 | XR ---
EXAMINATION TYPE: XR abdomen 2V DATE OF EXAM: 03/10/2020 CLINICAL HISTORY: Abdominal pain after recent cholecystectomy. TECHNIQUE: Supine and upright views of the abdomen are obtained. COMPARISON: CT abdomen and pelvis April 30, 2018. Abdominal x-ray from February 21, 2020. FINDINGS: Scattered gas is seen in non-distended small bowel loops. Gas is seen in non-distended co nahun and rectum. Cholecystectomy clips are redemonstrated. Interval removal of overlying skin ashley noted. Persistent patchy left basilar atelectasis improved from prior. Interval resolution of right b asilar atelectasis. No pneumoperitoneum. Visualized osseous structures are intact. IMPRESSION: Overall nonobstructive bowel gas pattern.
[2020-03-10] MEDS ORDERED: NALOXONE 0.4 MG/ML 1 ML VIAL IV PRN (15:04)
[2020-03-10 15:12] LABS: Appearance,Urine Clear (Clear); Bilirubin,Urine 1+ (Negative); Blood,Urine Trace (Negative); Color,Urine Yellow; Glucose,Urine (UA) Negative (Negative); Hyaline Casts,Urine 11 /lpf (0-2); Ketones,Urine 4+ (Negative); Leukocyte Esterase,Urine Negative (Negative); Mucus,Urine Rare /hpf; Nitrite,Urine Negative (Negative); PH, Urine 5.5 (5.0-8.0); Protein,Urine 1+ (Negative); RBC,Urine 2 /hpf (0-5); Specific Gravity,Urine 1.013 (1.001-1.035); WBC,Urine 1 /hpf (0-5)
[2020-03-10] MEDS ORDERED: METOCLOPRAMIDE 5 MG/ML 2 ML VIAL IVP STA (15:28)
[2020-03-10] MEDS ORDERED: BUPRENORPHINE HCL 8 MG SUBLINGUAL SCH (16:00)
[2020-03-10] MEDS: SODIUM CHLORIDE 0.9% 1,000 ML IV SCH (16:31)
[2020-03-10] MEDS: LACTULOSE 20 GM/30 ML CUP PO SCH (16:58)
[2020-03-10] MEDS: MODAFINIL 200 MG TAB PO SCH (16:58)
[2020-03-10] MEDS: RIFAXIMIN 550 MG TABLET PO SCH ×2 (16:58→21:43)
[2020-03-10] MEDS: PREGABALIN 100 MG CAP PO SCH (16:58)
[2020-03-10] MEDS: BUPRENORPHINE HCL 8 MG SUBLINGUAL SCH ×2 (16:58→22:19)
[2020-03-10] MEDS: NORTRIPTYLINE 25 MG CAP PO SCH (21:42)
[2020-03-10] MEDS: SPIRONOLACTONE 25 MG TAB PO SCH (21:42)
[2020-03-11] MEDS: SODIUM CHLORIDE 0.9% 1,000 ML IV SCH ×3 (03:48→20:48)
[2020-03-11] MEDS: SPIRONOLACTONE 25 MG TAB PO SCH ×2 (07:54→20:50)
[2020-03-11] MEDS: PREGABALIN 100 MG CAP PO SCH ×3 (07:54→16:40)
[2020-03-11] MEDS: FOLIC ACID 1 MG TAB PO SCH (07:54)
[2020-03-11] MEDS: MODAFINIL 200 MG TAB PO SCH ×2 (07:54→16:12)
[2020-03-11] MEDS: THIAMINE 100 MG TAB PO SCH (07:54)
[2020-03-11] MEDS: RIFAXIMIN 550 MG TABLET PO SCH ×3 (07:54→20:50)
[2020-03-11] MEDS: BUPRENORPHINE HCL 8 MG SUBLINGUAL SCH ×2 (07:55→16:09)
[2020-03-11] MEDS: LACTULOSE 20 GM/30 ML CUP PO SCH ×3 (07:55→16:40)
[2020-03-11] MEDS: FUROSEMIDE 20 MG TAB PO SCH (07:55)
[2020-03-11] MEDS: ARMODAFINIL 250 MG PO SCH (07:56)
[2020-03-11] MEDS ORDERED: PANTOPRAZOLE 40 MG TABLET PO SCH (09:00)
[2020-03-11 09:38] LABS: ALT 7 U/L (4-49); AST 18 U/L (17-59); African American GFR (CKD) >90 (>60 ml/min/1.73 sqM); Alkaline Phosphatase 195 U/L (38-126); Amylase 188 U/L (30-110); Anion Gap 22 mmol/L; Blood Urea Nitrogen 21 mg/dL (9-20); Calcium 9.7 mg/dL (8.4-10.2); Carbon Dioxide 10 mmol/L (22-30); Chloride 110 mmol/L (98-107); Glucose 136 mg/dL (74-99); Non-African American GFR(CKD) >90 (>60 ml/min/1.73 sqM); Potassium 4.4 mmol/L (3.5-5.1); Sodium 142 mmol/L (137-145); Total Bilirubin 0.5 mg/dL (0.2-1.3); Total Protein 7.8 g/dL (6.3-8.2)
[2020-03-11 09:50] LABS: Anisocytosis Slight; HCT 38.9 % (39.0-53.0); Hypochromasia Marked; MCH 28.3 pg (25.0-35.0); MCHC 28.4 g/dL (31.0-37.0); MCV 99.7 fL (80.0-100.0); Macrocytosis Slight; Mean Platelet Volume 8.1; Platelet Count 339 k/uL (150-450); RDW 16.5 % (11.5-15.5); WBC 5.8 k/uL (3.8-10.6)
[2020-03-11 10:52] LABS: Lymphocytes # (M) 0.46 k/uL (1.0-4.8); Monocytes # (M) 0.23 k/uL (0-1.0); Neutrophils % (M) 88 %; Nucleated Red Blood Cells 0 /100 WBC (0-0); Total Cells Counted 100
[2020-03-11] MEDS: METOCLOPRAMIDE 5 MG/ML 2 ML VIAL IVP PRN ×2 (12:50→20:50)
[2020-03-11] MEDS ORDERED: LORazepam 2 MG/ML INJ IV STA (13:10)
--- NOTE | 2020-03-11 14:23 | P.GSHP ---
History of Present Illness H&P Date: 03/11/20 Chief Complaint: Nausea vomiting 49-year-old male with history of liver dysfunction thought to be related to previous alcohol abuse. Underwent open cholecystectomy earlier this month for gallstone pancreatitis. Was hospitalized for approximately 2 weeks postop. At home the patient was developing increased confusion along with intermittent nausea and vomiting. His appetite was low. He was brought back to the hospital for evaluation. He was admitted to Dr. Lerma. I was not contacted by the emergency department. Patient today is somewhat belligerent. He is confused. He says he is thirsty. He was threatening to drink his own urine. Ammonia levels are elevated at 88. LFTs are elevated as well. Amylase and lipase elevated slightly. White blood cell count 5.8. Hemoglobin is 11. Patient did have vomiting on the floor that appeared to somewhat coffee-ground. - Review of Systems ROS unobtainable: Reports: due to mental status Past Medical History Past Medical History: GERD/Reflux, Liver Disease, Pneumonia, Skin Disorder Additional Past Medical History / Comment(s): Past ETOH abuse-has not drank since 2016, ascites with numerous paracenteisi, AMS/high amylase/vented, pancreatitis, chronic anemia, hiatal hernia, neuropathy bilateral legs/feet and has sores bilateral feet with L foot casted, chronic back pain. History of Any Multi-Drug Resistant Organisms: None Reported Past Surgical History: Adenoidectomy, Back Surgery, Cholecystectomy, Hernia Repair, Tonsillectomy Additional Past Surgical History / Comment(s): Open heart surgery to remove glass from heart (fell into glass on a door), low back surgery, R inguinal hernia repair, EGD, I&D L foot wound Past Anesthesia/Blood Transfusion Reactions: No Reported Reaction Past Psychological History: No Psychological Hx Reported Additional Psychological History / Comment(s): Pt resides with his spouse. He uses a walker. He can drive but not often. Smoking Status: Former smoker Past Alcohol Use History: Heavy Additional Past Alcohol Use History / Comment(s): STARTED SMOKING IN 1996, SMOKED 1PPD QUIT 01/07/17, PAST DAILY ETOH-QUIT SEP 2016 Past Drug Use History: Opiates Additional Drug Use History / Comment(s): previous opiate dependance many yrs ago, currently uses suboxone - Past Family History Father History Unknown: Yes Family Medical History: Dementia Additional Family Medical History / Comment(s): Father is living. Mother Family Medical History: Diabetes Mellitus Additional Family Medical History / Comment(s): Mother is . Medications and Allergies Home Medications Medication Instructions Recorded Confirmed Type Thiamine [Vitamin B-1] 100 mg PO DAILY #30 tab 11/06/16 03/10/20 Rx Folic Acid 1 mg PO DAILY 05/20/18 03/10/20 History Lactulose [Constulose] 20 gm PO AC-TID 05/20/18 03/10/20 History Modafinil [Provigil] 200 mg PO BID 05/20/18 03/10/20 History Buprenorphine HCl [Subutex] 8 mg SL TID 11/21/19 03/10/20 History Furosemide [Lasix] 20 mg PO DAILY 11/21/19 03/10/20 History Nortriptyline [Pamelor] 50 mg PO HS 11/21/19 03/10/20 History Rifaximin [Xifaxan] 550 mg PO TID 11/21/19 03/10/20 History Spironolactone [Aldactone] 50 mg PO BID 11/21/19 03/10/20 History Armodafinil [Nuvigil] 250 mg PO DAILY 02/14/20 03/10/20 History Omeprazole [PriLOSEC] 40 mg PO DAILY 02/14/20 03/10/20 History Pregabalin [Lyrica] 200 mg PO AC-TID 02/14/20 03/10/20 History Allergies Allergy/AdvReac Type Severity Reaction Status Date / Time No Known Allergies Allergy Verified 03/10/20 15:05 Surgical - Exam Vital Signs Temp Pulse Resp BP Pulse Ox 97.9 F 79 16 118/67 97 03/10/20 11:56 03/10/20 11:56 03/10/20 11:56 03/10/20 11:56 03/10/20 11:56 Physical exam: General: Well-developed, well-nourished HEENT: Normocephalic, sclerae icteric Abdomen: Nontender, nondistended, scar well healed Extremities: No edema Neuro: Alert and oriented Results - Labs 03/11/20 09:00 03/11/20 09:00 Abnormal Lab Results - Last 24 Hours (Table) 03/10/20 03/11/20 03/11/20 Range/Units 15:00 09:00 09:00 RBC 3.90 L (4.30-5.90) m/uL Hgb 11.0 L (13.0-17.5) gm/dL Hct 38.9 L (39.0-53.0) % MCHC 28.4 L (31.0-37.0) g/dL RDW 16.5 H (11.5-15.5) % Lymphocytes # (Manual) 0.46 L (1.0-4.8) k/uL Chloride 110 H (98-107) mmol/L Carbon Dioxide 10 L (22-30) mmol/L BUN 21 H (9-20) mg/dL Glucose 136 H (74-99) mg/dL Alkaline Phosphatase 195 H (38-126) U/L Ammonia (<30) umol/L Amylase 188 H (30-110) U/L Lipase 610 H (23-300) U/L Urine Protein 1+ H (Negative) Urine Ketones 4+ H (Negative) Urine Blood Trace H (Negative) Urine Bilirubin 1+ H (Negative) Hyaline Casts 11 H (0-2) /lpf Urine Mucus Rare H (None) /hpf 03/11/20 Range/Units 09:00 RBC (4.30-5.90) m/uL Hgb (13.0-17.5) gm/dL Hct (39.0-53.0) % MCHC (31.0-37.0) g/dL RDW (11.5-15.5) % Lymphocytes # (Manual) (1.0-4.8) k/uL Chloride (98-107) mmol/L Carbon Dioxide (22-30) mmol/L BUN (9-20) mg/dL Glucose (74-99) mg/dL Alkaline Phosphatase (38-126) U/L Ammonia 82 H (<30) umol/L Amylase (30-110) U/L Lipase (23-300) U/L Urine Protein (Negative) Urine Ketones (Negative) Urine Blood (Negative) Urine Bilirubin (Negative) Hyaline Casts (0-2) /lpf Urine Mucus (None) /hpf Diabetes panel 03/11/20 Range/Units 09:00 Sodium 142 (137-145) mmol/L Potassium 4.4 (3.5-5.1) mmol/L Chloride 110 H (98-107) mmol/L Carbon Dioxide 10 L (22-30) mmol/L BUN 21 H (9-20) mg/dL Creatinine 0.76 (0.66-1.25) mg/dL Glucose 136 H (74-99) mg/dL Calcium 9.7 (8.4-10.2) mg/dL AST 18 (17-59) U/L ALT 7 (4-49) U/L Alkaline Phosphatase 195 H (38-126) U/L Total Protein 7.8 (6.3-8.2) g/dL Albumin 4.0 (3.5-5.0) g/dL Calcium panel 03/11/20 Range/Units 09:00 Calcium 9.7 (8.4-10.2) mg/dL Albumin 4.0 (3.5-5.0) g/dL Pituitary panel 03/11/20 Range/Units 09:00 Sodium 142 (137-145) mmol/L Potassium 4.4 (3.5-5.1) mmol/L Chloride 110 H (98-107) mmol/L Carbon Dioxide 10 L (22-30) mmol/L BUN 21 H (9-20) mg/dL Creatinine 0.76 (0.66-1.25) mg/dL Glucose 136 H (74-99) mg/dL Calcium 9.7 (8.4-10.2) mg/dL Adrenal panel 03/11/20 Range/Units 09:00 Sodium 142 (137-145) mmol/L Potassium 4.4 (3.5-5.1) mmol/L Chloride 110 H (98-107) mmol/L Carbon Dioxide 10 L (22-30) mmol/L BUN 21 H (9-20) mg/dL Creatinine 0.76 (0.66-1.25) mg/dL Glucose 136 H (74-99) mg/dL Calcium 9.7 (8.4-10.2) mg/dL Total Bilirubin 0.5 (0.2-1.3) mg/dL AST 18 (17-59) U/L ALT 7 (4-49) U/L Alkaline Phosphatase 195 H (38-126) U/L Total Protein 7.8 (6.3-8.2) g/dL Albumin 4.0 (3.5-5.0) g/dL Assessment and Plan (1) Hepatic encephalopathy Narrative/Plan: Patient with nausea and vomiting. Some coffee-ground emesis. X-rays yesterday show nonobstructive pattern. Patient's liver enzymes elevated along with ammonia. We'll consult GI given the patient's hepatic encephalopathy. Possible psychiatric evaluation during this admission as well. May have ice chips but otherwise nothing by mouth. Repeat labs tomorrow. Current Visit: Yes Status: Chronic Code(s): K72.90 - HEPATIC FAILURE, UNSPECIFIED WITHOUT COMA SNOMED Code(s): 36463368
[2020-03-11] MEDS: HEPARIN SODIUM,PORCINE 5,000 UNIT/ML 1 ML VIAL SQ SCH (16:08)
[2020-03-11] MEDS: SUCRALFATE 1 GM TAB PO SCH (16:13)
--- NOTE | 2020-03-11 20:43 | P.CONS ---
History of Present Illness - Reason for Consult Consult date: 03/11/20 Medical management Requesting physician: Cirilo Lerma - Chief Complaint Vomiting - History of Present Illness Consultation: This is a pleasant 49-year-old patient of Dr. ortiz. Chronic stable medical conditions include alcoholic cirrhosis, portal hypertension, hyperlipidemia, peripheral neuropathy. EGD earlier this year showed a grade D distal esophagitis, large hiatal hernia, gastric antral vascular ectasia and and there was no esophageal varices. Admitted with acute pancreatitis.on February 15 patient started vomiting repeatedly. Had coffee-ground emesis. Became encephalopathic. Moved to the ICU. February 19 underwent open cholecystectomy. Patient went into pulmonary edema with IV fluids. Responded well to IV Lasix. Discharged on February 24. doing well. Elvira erating a diet. Now presents with feeling worse for last 3 days. Started vomiting. Very slight abdominal pain if any. No fever no chills. Just tired. Rundown. No diarrhea. Since presentation been having some coffee-ground emesis. Review of systems: GEN.: Tired EYES: None HEENT: None NECK: None RESPIRATORY: None CARDIOVASCULAR: None GASTROINTESTINAL: As above GENITOURINARY: None MUSCULOSKELETAL: None LYMPHATICS: None HEMATOLOGICAL: None PSYCHIATRY: None NEUROLOGICAL: Numbness in both the feet Past medical history to include: Alcoholic cirrhosis, portal hypertension, hypoalbuminemia, peripheral neuropathy from alcohol, left foot wound-healed, GERD ascites with multiple paracentesis pancreatitis hiatal hernia chronic low back pain, distal esophagitis, large hiatal hernia, gastric antral vascular ectasia Social history: Lives with his . started smoking in 1996, a pack a day stopped in December 2016. Patient used to do heavy alcohol in the past stopped in September 2016. Previous opiate dependence-now uses Suboxone. Physical examination: VITAL SIGNS: 97.9, 79, 16, 118/67, 97% on room air-upon presentation GENERAL: Laying in bed, tired, some dry vomitus on the hospital grounds EYES: Pupils equal. Conjunctiva pale. HEENT: External appearance of nose and ears normal, oral cavity dry. NECK: JVD not raised; masses not palpable. HEART: First and second heart sounds are normal; no edema. LUNGS: Respiratory Rate normal, lungs are clear ABDOMEN: Soft, no tenderness,dressing over the right upper quadrant no guarding or rigidity, liver spleen not palpable, possible hepatomegaly. PSYCH: AO 3, mood affect anxious slightly lethargic INVESTIGATIONS, reviewed in the clinical context: White count 5.3 hemoglobin 12.2 platelets 466 potassium 5.2 creatinine 0.76 amylase 223 lipase 682 ammonia 84 bicarb 10. Assessment: -Patient presented with vomiting for 3 days now with coffee-ground emesis suspect upper GI bleed. -Acute metabolic acidosis POA- -mild hepatic encephalopathy- -Acute GI bleed with coffee-ground emesis-POA -Recent cholecystectomy. 4 gallstones and pancreatitis -Alcoholic cirrhosis -Portal hypertension -Diabetic peripheral neuropathy -Left foot wound secondary to neuropathy-healed -GERD -Large hiatal hernia -LA grade D distal esophagitis, - large hiatal hernia, -gastric antral vascular ectasia -Anemia secondary to GI blood loss. Plan: Patient was started on D5 0.45 with 1 amp of bicarbonate. Also start the patient back on lactulose. Home medications to be resumed. Overall prognosis to be guarded. Fall precautions. Follow electrolytes. Thank you Dr. Lerma Past Medical History Past Medical History: GERD/Reflux, Liver Disease, Pneumonia, Skin Disorder Additional Past Medical History / Comment(s): Past ETOH abuse-has not drank since 2016, ascites with numerous paracenteisi, AMS/high amylase/vented, pancreatitis, chronic anemia, hiatal hernia, neuropathy bilateral legs/feet and has sores bilateral feet with L foot casted, chronic back pain. History of Any Multi-Drug Resistant Organisms: None Reported Past Surgical History: Adenoidectomy, Back Surgery, Cholecystectomy, Hernia Repair, Tonsillectomy Additional Past Surgical History / Comment(s): Open heart surgery to remove glass from heart (fell into glass on a door), low back surgery, R inguinal hernia repair, EGD, I&D L foot wound Past Anesthesia/Blood Transfusion Reactions: No Reported Reaction Past Psychological History: No Psychological Hx Reported Additional Psychological History / Comment(s): Pt resides with his spouse. He uses a walker. He can drive but not often. Smoking Status: Former smoker Past Alcohol Use History: Heavy Additional Past Alcohol Use History / Comment(s): STARTED SMOKING IN 1996, SMOKED 1PPD QUIT 01/07/17, PAST DAILY ETOH-QUIT SEP 2016 Past Drug Use History: Opiates Additional Drug Use History / Comment(s): previous opiate dependance many yrs ago, currently uses suboxone - Past Family History Father History Unknown: Yes Family Medical History: Dementia Additional Family Medical History / Comment(s): Father is living. Mother Family Medical History: Diabetes Mellitus Additional Family Medical History / Comment(s): Mother is . Medications and Allergies Home Medications Medication Instructions Recorded Confirmed Type Thiamine [Vitamin B-1] 100 mg PO DAILY #30 tab 11/06/16 03/10/20 Rx Folic Acid 1 mg PO DAILY 05/20/18 03/10/20 History Lactulose [Constulose] 20 gm PO AC-TID 05/20/18 03/10/20 History Modafinil [Provigil] 200 mg PO BID 05/20/18 03/10/20 History Buprenorphine HCl [Subutex] 8 mg SL TID 11/21/19 03/10/20 History Furosemide [Lasix] 20 mg PO DAILY 11/21/19 03/10/20 History Nortriptyline [Pamelor] 50 mg PO HS 11/21/19 03/10/20 History Rifaximin [Xifaxan] 550 mg PO TID 11/21/19 03/10/20 History Spironolactone [Aldactone] 50 mg PO BID 11/21/19 03/10/20 History Armodafinil [Nuvigil] 250 mg PO DAILY 02/14/20 03/10/20 History Omeprazole [PriLOSEC] 40 mg PO DAILY 02/14/20 03/10/20 History Pregabalin [Lyrica] 200 mg PO AC-TID 02/14/20 03/10/20 History Allergies Allergy/AdvReac Type Severity Reaction Status Date / Time No Known Allergies Allergy Verified 03/10/20 15:05 Physical Exam Vitals: Vital Signs Temp Pulse Resp BP Pulse Ox 03/11/20 19:36 97.4 F L 88 20 110/74 97 03/11/20 15:12 96.3 F L 80 15 113/72 97 03/11/20 07:25 96 F L 91 18 130/77 100 03/11/20 00:21 97.6 F 99 18 127/79 99 Intake and Output 03/11/20 03/11/20 03/11/20 06:59 14:59 22:59 Intake Total 1160 Balance 1160 Intake: IV 1160 Sodium Chloride 0.9% 1, 520 000 ml @ 130 mls/hr IV . [id number] [facility] Rx#:[id number] Sodium Chloride 0.9% 1, 640 000 ml @ 80 mls/hr IV . [id number] [facility] Rx#:[id number] Other: Voiding Method Urinal # Voids 1 Results CBC & Chem 7: 03/11/20 09:00 03/11/20 09:00 Labs: Abnormal Lab Results - Last 24 Hours (Table) 03/11/20 03/11/20 03/11/20 Range/Units 09:00 09:00 09:00 RBC 3.90 L (4.30-5.90) m/uL Hgb 11.0 L (13.0-17.5) gm/dL Hct 38.9 L (39.0-53.0) % MCHC 28.4 L (31.0-37.0) g/dL RDW 16.5 H (11.5-15.5) % Lymphocytes # (Manual) 0.46 L (1.0-4.8) k/uL Chloride 110 H (98-107) mmol/L Carbon Dioxide 10 L (22-30) mmol/L BUN 21 H (9-20) mg/dL Glucose 136 H (74-99) mg/dL Alkaline Phosphatase 195 H (38-126) U/L Ammonia 82 H (<30) umol/L Amylase 188 H (30-110) U/L Lipase 610 H (23-300) U/L
[2020-03-11] MEDS: PANTOPRAZOLE 40 MG/10 ML VIAL IVP SCH (20:49)
[2020-03-11] MEDS: NORTRIPTYLINE 25 MG CAP PO SCH (20:50)
[2020-03-11] MEDS: DEXTROSE 5%-0.45% NACL 1,000 ML with SODIUM BICARB (1 MEQ/ML) 50 ML IV SCH ×2 (21:44)
--- NOTE | 2020-03-11 23:33 | P.CONS ---
History of Present Illness - Reason for Consult Consult date: 03/11/20 Decompensated cirrhosis, nausea and vomiting, elevated lipase Requesting physician: Lucas Orr - Chief Complaint Abdominal pain, nausea and vomiting - History of Present Illness 49-year-old male with multiple medical comorbidities including alcoholic cirrhosis, portal hypertension, hyperlipidemia, peripheral neuropathy and recent admission for gallstone pancreatitis status post cholecystectomy who presented back to the hospital due to complaints of nausea, vomiting and abdominal pain. The patient's had been experiencing 3-4 days of nausea and vomiting with asso ciated decreased oral intake. Secondary to the nausea and vomiting the patient had been unable to tolerate his oral medications. X-ray of the abdomen on presentation was significant for a nonacute abdomen. Laboratory evaluation significant for a lipase of 610, amylase 188, total bilirubin 0.5, alkaline phosphatase 195, AST 18 and ALTs 7 with a WBC 5.8, hemoglobin 11 and platelet count 339,000 patient was found to have elevated ammonia level and is somewhat confused and encephalopathic on the medical floor. Previously the patient had an EGD when seen for nausea and vomiting on 11/23/2019 significant for LA grade D esophagitis a large hiatal hernia and gastric antral vascular ectasia with no varices noted. Review of Systems REVIEW OF SYSTEMS: CONSTITUTIONAL: Denies any fevers, chills, weight change or fatigue. CARDIOVASCULAR: Denies any chest pain, palpitations high or low blood pressures RESPIRATORY: Denies any shortness of breath, hemoptysis or cough. GENITOURINARY: No dysuria or hematuria. MUSCULOSKELETAL: No weakness reported. SKIN: Denies any new rashes or lesions, jaundice or pallor. PSYCHIATRIC: Denies any depression or anxiety. NEUROLOGY: Denies headache, denies any new focal deficits. EARS/NOSE/THROAT: No recent hearing change, congestion, nasal discharge or sore throat. EYES: No pain in eyes, discharge or change in vision. GASTROINTESTINAL: As per HPI. Past Medical History Past Medical History: GERD/Reflux, Liver Disease, Pneumonia, Skin Disorder Additional Past Medical History / Comment(s): Past ETOH abuse-has not drank since 2016, ascites with numerous paracenteisi, AMS/high amylase/vented, pancreatitis, chronic anemia, hiatal hernia, neuropathy bilateral legs/feet and has sores bilateral feet with L foot casted, chronic back pain. History of Any Multi-Drug Resistant Organisms: None Reported Past Surgical History: Adenoidectomy, Back Surgery, Cholecystectomy, Hernia Re pair, Tonsillectomy Additional Past Surgical History / Comment(s): Open heart surgery to remove glass from heart (fell into glass on a door), low back surgery, R inguinal wesley ia repair, EGD, I&D L foot wound Past Anesthesia/Blood Transfusion Reactions: No Reported Reaction Past Psychological History: No Psychological Hx Reported Additional Psychological History / Comment(s): Pt resides with his spouse. He uses a walker. He can drive but not often. Smoking Status: Former smoker Past Alcohol Use History: Heavy Additional Past Alcohol Use History / Comment(s): STARTED SMOKING IN 1996, SMOKED 1PPD QUIT 01/07/17, PAST DAILY ETOH-QUIT SEP 2016 Past Drug Use History: Opiates Additional Drug Use History / Comment(s): previous opiate dependance many yrs ago, currently uses suboxone - Past Family History Father History Unknown: Yes Family Medical History: Dementia Additional Family Medical History / Comment(s): Father is living. Mother Family Medical History: Diabetes Mellitus Additional Family Medical History / Comment(s): Mother is . Medications and Allergies Home Medications Medication Instructions Recorded Confirmed Type Thiamine [Vitamin B-1] 100 mg PO DAILY #30 tab 11/06/16 03/10/20 Rx Folic Acid 1 mg PO DAILY 05/20/18 03/10/20 History Lactulose [Constulose] 20 gm PO AC-TID 05/20/18 03/10/20 History Modafinil [Provigil] 200 mg PO BID 05/20/18 03/10/20 History Buprenorphine HCl [Subutex] 8 mg SL TID 11/21/19 03/10/20 History Furosemide [Lasix] 20 mg PO DAILY 11/21/19 03/10/20 History Nortriptyline [Pamelor] 50 mg PO HS 11/21/19 03/10/20 History Rifaximin [Xifaxan] 550 mg PO TID 11/21/19 03/10/20 History Spironolactone [Aldactone] 50 mg PO BID 11/21/19 03/10/20 History Armodafinil [Nuvigil] 250 mg PO DAILY 02/14/20 03/10/20 History Omeprazole [PriLOSEC] 40 mg PO DAILY 02/14/20 03/10/20 History Pregabalin [Lyrica] 200 mg PO AC-TID 02/14/20 03/10/20 History Allergies Allergy/AdvReac Type Severity Reaction Status Date / Time No Known Allergies Allergy Verified 03/10/20 15:05 Physical Exam Vitals: Vital Signs Temp Pulse Pulse Resp BP BP Pulse Ox 03/11/20 07:25 96 F L 91 18 130/77 100 03/11/20 00:21 97.6 F 99 18 127/79 99 03/10/20 19:14 97.4 F L 85 16 125/80 99 03/10/20 16:10 97.6 F 81 16 121/76 99 03/10/20 15:45 77 16 117/67 98 03/10/20 11:56 97.9 F 79 16 118/67 97 Intake and Output 03/10/20 03/11/20 03/11/20 22:59 06:59 14:59 Intake Total 1160 Output Total 400 Balance -400 1160 Intake: IV 1160 Sodium Chloride 0.9% 1, 520 000 ml @ 130 mls/hr IV . Q7H42M STA Rx#:[id number] Sodium Chloride 0.9% 1, 640 000 ml @ 80 mls/hr IV . [id number] GRISELDA Rx#:[id number] Output: Urine 400 Other: Voiding Method Urinal # Voids 1 Weight 117.934 kg On physical examination, patient appears comfortable in no apparent distress. HEAD: Normocephalic, atraumatic. EYES: No scleral icterus. No conjunctival injection. MOUTH: No lesions, tongue midline. NECK: Trachea midline, no gross abnormalities. CHEST: Clear to auscultation with no wheezing or rhonchi appreciated. HEART: Regular rate and rhythm. ABDOMEN: Soft, obese. Bowel sounds are positive. No organomegaly. No guarding or rigidity. EXTREMITIES: No pedal edema. SKIN: No rashes, no jaundice. NEUROLOGIC: Alert and oriented x3 with no asterixis however the patient is s omewhat unreasonable likely secondary to elevated ammonia and encephalopathy. No focal deficits. Results CBC & Chem 7: 03/11/20 09:00 03/11/20 09:00 Labs: Abnormal Lab Results - Last 24 Hours (Table) 03/10/20 03/10/20 03/10/20 Range/Units 12:47 12:47 12:47 RBC 4.10 L (4.30-5.90) m/uL Hgb 12.2 L (13.0-17.5) gm/dL Hct (39.0-53.0) % MCHC 30.1 L (31.0-37.0) g/dL RDW 16.8 H (11.5-15.5) % Plt Count 466 H (150-450) k/uL Lymphocytes # 0.6 L (1.0-4.8) k/uL Lymphocytes # (Manual) (1.0-4.8) k/uL Potassium 5.2 H (3.5-5.1) mmol/L Chloride (98-107) mmol/L Carbon Dioxide 10 L (22-30) mmol/L BUN (9-20) mg/dL Glucose 126 H (74-99) mg/dL Alkaline Phosphatase 202 H (38-126) U/L Ammonia 84 H (<30) umol/L Creatine Kinase 24 L (55-170) U/L Amylase 223 H (30-110) U/L Lipase 682 H (23-300) U/L Urine Protein (Negative) Urine Ketones (Negative) Urine Blood (Negative) Urine Bilirubin (Negative) Hyaline Casts (0-2) /lpf Urine Mucus (None) /hpf 03/10/20 03/11/20 03/11/20 Range/Units 15:00 09:00 09:00 RBC 3.90 L (4.30-5.90) m/uL Hgb 11.0 L (13.0-17.5) gm/dL Hct 38.9 L (39.0-53.0) % MCHC 28.4 L (31.0-37.0) g/dL RDW 16.5 H (11.5-15.5) % Plt Count (150-450) k/uL Lymphocytes # (1.0-4.8) k/uL Lymphocytes # (Manual) 0.46 L (1.0-4.8) k/uL Potassium (3.5-5.1) mmol/L Chloride 110 H (98-107) mmol/L Carbon Dioxide 10 L (22-30) mmol/L BUN 21 H (9-20) mg/dL Glucose 136 H (74-99) mg/dL Alkaline Phosphatase 195 H (38-126) U/L Ammonia (<30) umol/L Creatine Kinase (55-170) U/L Amylase 188 H (30-110) U/L Lipase 610 H (23-300) U/L Urine Protein 1+ H (Negative) Urine Ketones 4+ H (Negative) Urine Blood Trace H (Negative) Urine Bilirubin 1+ H (Negative) Hyaline Casts 11 H (0-2) /lpf Urine Mucus Rare H (None) /hpf 03/11/20 Range/Units 09:00 RBC (4.30-5.90) m/uL Hgb (13.0-17.5) gm/dL Hct (39.0-53.0) % MCHC (31.0-37.0) g/dL RDW (11.5-15.5) % Plt Count (150-450) k/uL Lymphocytes # (1.0-4.8) k/uL Lymphocytes # (Manual) (1.0-4.8) k/uL Potassium (3.5-5.1) mmol/L Chloride (98-107) mmol/L Carbon Dioxide (22-30) mmol/L BUN (9-20) mg/dL Glucose (74-99) mg/dL Alkaline Phosphatase (38-126) U/L Ammonia 82 H (<30) umol/L Creatine Kinase (55-170) U/L Amylase (30-110) U/L Lipase (23-300) U/L Urine Protein (Negative) Urine Ketones (Negative) Urine Blood (Negative) Urine Bilirubin (Negative) Hyaline Casts (0-2) /lpf Urine Mucus (None) /hpf Abdominal x-ray: report reviewed (Nonacute abdomen on x-ray of the abdomen.) Assessment and Plan (1) Intractable nausea and vomiting Narrative/Plan: 49-year-old male with multiple medical comorbidities including decompensated liver disease who was recently hospitalized due to gallstone pancreatitis and is status post cholecystectomy who presented back with nausea and vomiting. Previously the patient had been seen in 11/2019 with intractable nausea and vomiting and was taken for EGD with findings of a hiatal hernia, LA grade D eso phagitis and gastric antral vascular ectasia. Unclear etiology of current symptoms with only mild elevation of amylase and lipase. Patient had been noncompliant with medications due to the nausea and vomiting and subsequently had elevated ammonia and encephalopathy. Current Visit: No Status: Acute Code(s): R11.2 - NAUSEA WITH VOMITING, UNSPECIFIED SNOMED Code(s): 321721238 (2) Hepatic encephalopathy Current Visit: Yes Status: Chronic Code(s): K72.90 - HEPATIC FAILURE, UNSPECIFIED WITHOUT COMA SNOMED Code(s): 88201494 (3) Abdominal pain Current Visit: No Status: Acute Code(s): R10.9 - UNSPECIFIED ABDOMINAL PAIN SNOMED Code(s): 26576686 (4) Alcoholic liver disease Current Visit: No Status: Acute Code(s): K70.9 - ALCOHOLIC LIVER DISEASE, UN SPECIFIED SNOMED Code(s): 49484889 (5) Cirrhosis Current Visit: No Status: Acute Code(s): K74.60 - UNSPECIFIED CIRRHOSIS OF LIVER SNOMED Code(s): 73344476 Plan: Supportive care Clear liquids as tolerated Protonix 40 mg IV twice a day Carafate 3 times a day before meals and at bedtime Zofran as needed for nausea Continue lactulose 3 times a day and Xifaxan twice a day Continue other chronic medications Continue to monitor clinically Thank you for allowing us to participate in the care of the patient we will continue to follow
[2020-03-12] MEDS: HEPARIN SODIUM,PORCINE 5,000 UNIT/ML 1 ML VIAL SQ SCH ×3 (00:04→16:08)
[2020-03-12] MEDS: BUPRENORPHINE HCL 8 MG SUBLINGUAL SCH ×4 (00:04→21:49)
[2020-03-12] MEDS: SODIUM CHLORIDE 0.9% 1,000 ML IV SCH (04:27)
[2020-03-12 07:21] LABS: Anisocytosis Slight; Basophils % (A) 0 %; Eosinophils # (A) 0.1 k/uL (0-0.7); Eosinophils % (A) 1 %; HGB 9.6 gm/dL (13.0-17.5); Hypochromasia Marked; Lymphocytes # (A) 0.4 k/uL (1.0-4.8); Lymphocytes % (A) 6 %; MCH 27.7 pg (25.0-35.0); MCHC 28.1 g/dL (31.0-37.0); MCV 98.4 fL (80.0-100.0); Macrocytosis Slight; Mean Platelet Volume 8.2; Monocytes # (A) 0.4 k/uL (0-1.0); Monocytes % (A) 6 %; Neutrophils # (A) 5.5 k/uL (1.3-7.7); Neutrophils % (A) 86 %; Platelet Count 297 k/uL (150-450); RBC 3.45 m/uL (4.30-5.90); RDW 16.9 % (11.5-15.5); WBC 6.4 k/uL (3.8-10.6)
[2020-03-12 07:39] LABS: ALT 7 U/L (4-49); AST 22 U/L (17-59); African American GFR (CKD) >90 (>60 ml/min/1.73 sqM); Albumin 3.3 g/dL (3.5-5.0); Alkaline Phosphatase 164 U/L (38-126); Anion Gap 14 mmol/L; Blood Urea Nitrogen 29 mg/dL (9-20); Calcium 9.4 mg/dL (8.4-10.2); Carbon Dioxide 14 mmol/L (22-30); Chloride 115 mmol/L (98-107); Glucose 135 mg/dL (74-99); Non-African American GFR(CKD) >90 (>60 ml/min/1.73 sqM); Potassium 4.1 mmol/L (3.5-5.1); Sodium 143 mmol/L (137-145); Total Bilirubin 0.5 mg/dL (0.2-1.3); Total Protein 6.8 g/dL (6.3-8.2)
[2020-03-12] MEDS: FOLIC ACID 1 MG TAB PO SCH (08:47)
[2020-03-12] MEDS: THIAMINE 100 MG TAB PO SCH (08:47)
[2020-03-12] MEDS: SPIRONOLACTONE 25 MG TAB PO SCH ×2 (08:47→21:34)
[2020-03-12] MEDS: LACTULOSE 20 GM/30 ML CUP PO SCH ×3 (08:47→16:56)
[2020-03-12] MEDS: MODAFINIL 200 MG TAB PO SCH ×2 (08:47→16:56)
[2020-03-12] MEDS: PANTOPRAZOLE 40 MG/10 ML VIAL IVP SCH ×2 (08:48→21:35)
[2020-03-12] MEDS: PREGABALIN 100 MG CAP PO SCH ×3 (08:48→16:56)
[2020-03-12] MEDS: SUCRALFATE 1 GM TAB PO SCH ×3 (08:48→16:56)
[2020-03-12] MEDS: RIFAXIMIN 550 MG TABLET PO SCH ×3 (08:48→21:34)
[2020-03-12] MEDS: FUROSEMIDE 20 MG TAB PO SCH (08:48)
[2020-03-12] MEDS: DEXTROSE 5%-0.45% NACL 1,000 ML with SODIUM BICARB (1 MEQ/ML) 50 ML IV SCH ×4 (12:34→23:19)
[2020-03-12] MEDS: ARMODAFINIL 250 MG PO SCH (12:35)
--- NOTE | 2020-03-12 13:37 | P.CN ---
Psychiatric Consult - . Consult date: 03/12/20 Consult:: 03/12/20 12:58 IDENTIFYING DATA: This patient is a 49-year-old male who currently lives with his in a house and has no kids. HISTORY OF PRESENT ILLNESS: The patient presented to the hospital after having a recent open cholecystectomy and a history of gallstones and recurrent pancreatitis and liver cirrhosis. Patient was brought in by EMS for nausea or vomiting and decrease in oral intake. Patient was found to have coffee-ground emesis during the first few days of his admission on the medical floors. Patient had potassium which had improved, sodium is within normal limits and ammonium was initially elevated however has been decreasing down to 63 today. Amylase improving. Psychiatrist consulted for medication evaluation. Patients nurse claims the patient has been lethargic and confused today. He is currently nothing by mouth. Patient was seen in the bed and had a poor attention span and appeared to be lethargic. He reported several times during the evaluation that he was feeling "sick" and also admitted to having nausea and vomiting. He states that he does not know why he is in the hospital and believes it is "the " however does not give any more information about the date today. He has poor concentration and repeatedly asked to have something to drink. He spoke earlier about wanting to drink his own urine because he was so thirsty. He claims that he has a history of anxiety and depression however denies any depressive symptoms at this time. He states that his sleep has been "bad". At this time patient denies any suicidal or homical ideations, intent or plan. Patient denies any auditory, visual hallucinations and denies any paranoia or delusions. Patients admits to using alcohol in the past however states that he is sober since 2016 PAST PSYCHIATRIC HISTORY: Patient has a a history of alcohol abuse along with depression and anxiety. Issues was previously on Pamelor 50 mg daily at bedtime. Patient denies any previous psychiatric hospitalizations. Patient denies any psychiatric outpatient follow-up. Patient denies any history of suicide attempts in the past. PAST MEDICAL HISTORY: Liver cirrhosis, GERD, pneumonia, skin disorder, hyperlipidemia, peripheral neuropathy. ALLERGIES: as per EMR. CHEMICAL DEPENDENCY HISTORY: as per HPI. FAMILY PSYCHIATRIC/SUBSTANCE USE HISTORY: denies SOCIAL HISTORY: Patient was born and raised in [place] and claims that he is currently retired however does not state what he used to do. He claims that he completed up to the 10th grade. He lives with his in a house and has no kids. MENTAL STATUS EXAM: General Appearance: Patient appears to be stated age is lethargic and has poor attention span, is unable to redirect. Patient appears to have poor hygiene and grooming wearing hospital gown with poor eye contact. Behavior: Patient is calmly lying in bed without any agitated behavior. Poor attention span and difficult to redirect. Speech: Patient's speech is fluent and nonpressured. Mood/Affect: Patient reports their mood is "thirsty", affect is congruent Suicidality/Homicidality: Patient denies having any suicidal or homicidal ideation intent or plan. Perceptions: Patient denies any visual hallucinations and denies any auditory hallucinations Though content/process: Preoccupied with water and appears to be confused. [place] and illogical at times. Memory and concentration: AOX2, believes it is the "22nd" and does not know why he is in the hospital. Poor attention span. Cannot spell "WORLD" backwards Judgment and insight: poor IMPRESSIONS: Delirium, likely secondary to toxic metabolic causes History of depression and anxiety PLAN: -At this time patient DOES NOT meet criteria for inpatient psychiatric admission. -Patient DOES NOT have decision making capacity at this time and is unable to reason through and communicate/appreciate the risks, benefits and alternatives to treatment. -Delirium precautions recommended with patient including - avoiding use of narcotics and RN MATERNAL CHILD sedatives, limit anticholinergic medications when possible, frequent re-orientation, minimize use of restraints, open window shades during the day and close them at night -Would recommend the following medication changes/additions: Discontinued Pamelor as this could be causing sedation and increasing confusion. Will start Remeron 7.5 mg daily at bedtime for sleep/mood/appetite. If patient becomes more agitated than he can receive Haldol PRN 1-2 mg every 6 hours as needed for agitation. -Continue with medical management and correction of patient's underlying electrolyte abnormalities and medical condition including improving ammonia levels. -Will continue to follow along -Please contact with any questions. 03/12/20 13:30
[2020-03-12] MEDS ORDERED: LACTULOSE 20 GM/30 ML CUP PO ONE ×2 (13:41)
--- NOTE | 2020-03-12 13:41 | P.PN ---
Subjective Progress Note Date: 03/12/20 CHIEF COMPLAINT: Nausea, vomiting HISTORY OF PRESENT ILLNESS: Patient examined at the bedside with Dr. Lerma. Patient denies abdominal pain. Denies nausea or vomiting. He is asking for something to drink. PHYSICAL EXAM: VITAL SIGNS: Reviewed. GENERAL: Well-developed in no acute distress. HEENT: No sclera icterus. Extraocular movements grossly intact. Moist buccal mucosa. Head is atraumatic, normocephalic. ABDOMEN: Soft. Nondistended. Nontender. NEUROLOGIC: Patient sleepy during examination but easily arousable to verbal s timuli. ASSESSMENT: 1. Nausea, vomiting 2. History of recent open cholecystectomy secondary to gallstone pancreatitis 3. Hepatic encephalopathy PLAN: -Begin clear liquid diet -No surgical intervention recommended Nurse practitioner note has been reviewed by physician. Signing provider agrees with the documented findings, assessment, and plan of care. Objective - Vital Signs Vital signs: Vital Signs Temp 97.6 F 03/12/20 07:42 Pulse 102 H 03/12/20 08:00 Resp 16 03/12/20 08:00 BP 108/72 03/12/20 07:42 Pulse Ox 98 03/12/20 07:42 Intake & Output 03/11/20 03/12/20 03/12/20 18:59 06:59 18:59 Intake Total 1160 Balance 1160 Intake: IV 1160 Sodium Chloride 0.9% 1, 520 000 ml @ 130 mls/hr IV . Q7H42M STA Rx#:[id number] Sodium Chloride 0.9% 1, 640 000 ml @ 80 mls/hr IV . [id number] GRISELDA Rx#:[id number] Other: Voiding Method Urinal # Voids 1 1 - Labs CBC & Chem 7: 03/12/20 06:38 03/12/20 06:38 Labs: Abnormal Lab Results - Last 24 Hours (Table) 03/11/20 03/12/20 03/12/20 Range/Units 09:00 06:38 06:38 RBC 3.45 L (4.30-5.90) m/uL Hgb 9.6 L (13.0-17.5) gm/dL Hct 34.0 L (39.0-53.0) % MCHC 28.1 L (31.0-37.0) g/dL RDW 16.9 H (11.5-15.5) % Lymphocytes # 0.4 L (1.0-4.8) k/uL Lymphocytes # (Manual) 0.46 L (1.0-4.8) k/uL Chloride 115 H (98-107) mmol/L Carbon Dioxide 14 L (22-30) mmol/L BUN 29 H (9-20) mg/dL Glucose 135 H (74-99) mg/dL Alkaline Phosphatase 164 H (38-126) U/L Ammonia (<30) umol/L Albumin 3.3 L (3.5-5.0) g/dL 03/12/20 Range/Units 09:09 RBC (4.30-5.90) m/uL Hgb (13.0-17.5) gm/dL Hct (39.0-53.0) % MCHC (31.0-37.0) g/dL RDW (11.5-15.5) % Lymphocytes # (1.0-4.8) k/uL Lymphocytes # (Manual) (1.0-4.8) k/uL Chloride (98-107) mmol/L Carbon Dioxide (22-30) mmol/L BUN (9-20) mg/dL Glucose (74-99) mg/dL Alkaline Phosphatase (38-126) U/L Ammonia 63 H (<30) umol/L Albumin (3.5-5.0) g/dL
--- NOTE | 2020-03-12 19:45 | P.PN ---
Progress Note - Text Progress Note Date: 03/12/20 - Chief Complaint Vomiting Interval history: This is a pleasant 49-year-old patient of Dr. ortiz. Chronic stable medical conditions include alcoholic cirrhosis, portal hypertension, hyperlipidemia, peripheral neuropathy. EGD earlier this year showed a grade D distal esophagitis, large hiatal hernia, gastric antral vascular ectasia and and there was no esophageal varices. Admitted with acute pancreatitis.on February 15 patient started vomiting repeatedly. Had coffee-ground emesis. Became encephalopathic. Moved to the ICU. February 19 underwent open cholecystectomy. Patient went into pulmonary edema with IV fluids. Responded well to IV Lasix. Discharged on February 24. doing well. Tolerating a diet. Now presents with feeling worse for last 3 days. Started vomiting. Very slight abdominal pain if any. No fever no chills. Just tired. Rundown. No diarrhea. Since presentation been having some coffee-ground emesis. Admitted with coffee-ground emesis, hepatic encephalopathy Today-patient wears to clear liquid diet. Up is a bit more relaxed though still encephalopathic. Getting lactulose. No further vomiting. Review of systems: Was done for constitutional, cardiovascular, GI, pulmonary. relevant finding as above Active Medications Folic Acid (Folic Acid) 1 mg PO DAILY [facility] Last Admin: 03/12/20 08:47 Dose: 1 mg Documented by: Furosemide (Lasix) 20 mg PO DAILY [facility] Last Admin: 03/12/20 08:48 Dose: 20 mg Documented by: Heparin Sodium (Porcine) (Heparin) 5,000 unit SQ Q8HR [facility] Last Admin: 03/12/20 16:08 Dose: 5,000 unit Documented by: Sodium Chloride (Saline 0.9%) 1,000 mls @ 80 mls/hr IV .[id number] [facility] Last Admin: 03/12/20 04:27 Dose: Not Given Documented by: Sodium Bicarbonate 50 ml/ (Dextrose/Sodium Chloride) 1,050 mls @ 100 mls/hr IV .[id number] [facility] Last Admin: 03/12/20 12:34 Dose: 100 mls/hr Documented by: Lactulose (Cephulac) 20 gm PO AC-TID [facility] Last Admin: 03/12/20 16:56 Dose: 20 gm Documented by: Metoclopramide HCl (Reglan) 5 mg IVP Q6HR PRN PRN Reason: Nausea And Vomiting Last Admin: 03/11/20 20:50 Dose: 5 mg Documented by: Mirtazapine (Remeron) 7.5 mg PO HS [facility] Modafinil (Provigil) 200 mg PO BID@0900,1800 [facility] Last Admin: 03/12/20 16:56 Dose: 200 mg Documented by: Naloxone HCl (Narcan) 0.2 mg IV Q2M PRN PRN Reason: Opioid Reversal Non-Formulary Medication (Armodafinil [Nuvigil]) 250 mg PO DAILY [facility] Last Admin: 03/12/20 12:35 Dose: Not Given Documented by: Patient's Own ( Buprenorphine Hcl [ Subutex] 8 Mg) 8 mg SUBLINGUAL TID [facility] Last Admin: 03/12/20 17:27 Dose: 8 mg Documented by: Pantoprazole Sodium (Protonix) 40 mg IVP BID [facility] Last Admin: 03/12/20 08:48 Dose: 40 mg Documented by: Pregabalin (Lyrica) 200 mg PO AC-TID [facility] Last Admin: 03/12/20 16:56 Dose: 200 mg Documented by: Rifaximin (Xifaxan) 550 mg PO TID [facility] Stop: 04/09/20 16:01 Last Admin: 03/12/20 16:56 Dose: 550 mg Documented by: Spironolactone (Aldactone) 50 mg PO BID [facility] Last Admin: 03/12/20 08:47 Dose: 50 mg Documented by: Sucralfate (Carafate) 1 gm PO AC-TID [facility] Last Admin: 03/12/20 16:56 Dose: 1 gm Documented by: Thiamine HCl (Vitamin B-1) 100 mg PO DAILY [facility] Last Admin: 03/12/20 08:47 Dose: 100 mg Documented by: Physical examination: VITAL SIGNS: 97.6, 1 or 2, 16, 108/72, 98% on room air GENERAL: Laying in bed, tired and less lethargic than yesterday EYES: Pupils equal. Conjunctiva pale. HEENT: External appearance of nose and ears normal, oral cavity dry. NECK: JVD not raised; masses not palpable. HEART: First and second heart sounds are normal; no edema. LUNGS: Respiratory Rate normal, lungs are clear ABDOMEN: Soft, no tenderness,dressing over the right upper quadrant no guarding or rigidity, liver spleen not palpable, possible hepatomegaly. PSYCH: AO 3, mood affect anxious slightly lethargic INVESTIGATIONS, reviewed in the clinical context: White count 6.4 hemoglobin 9.6 potassium 4.1 and crit 0.87 bicarbonate 14 Previous testing White count 5.3 hemoglobin 12.2 platelets 466 potassium 5.2 creatinine 0.76 amylase 223 lipase 682 ammonia 84 bicarb 10. Assessment: -Patient presented with vomiting for 3 days now with coffee-ground emesis suspect upper GI bleed. -Acute metabolic acidosis POA- -mild hepatic encephalopathy- -Acute GI bleed with coffee-ground emesis-POA -Recent cholecystectomy. 4 gallstones and pancreatitis -Alcoholic cirrhosis -Portal hypertension -Diabetic peripheral neuropathy -Left foot wound secondary to neuropathy-healed -GERD -Large hiatal hernia -LA grade D distal esophagitis, - large hiatal hernia, -gastric antral vascular ectasia -Acute blood loss Anemia secondary to GI blood loss. Plan: Continue with IV fluids with bicarbonate. Continue with lactulose. Patient's showing slow improvement. Follow. Start on clear liquid diet. Thank you Dr. Lerma
[2020-03-12] MEDS: MIRTAZAPINE 15 MG TAB PO SCH (21:34)
[2020-03-13] MEDS: HEPARIN SODIUM,PORCINE 5,000 UNIT/ML 1 ML VIAL SQ SCH ×3 (01:36→17:18)
--- NOTE | 2020-03-13 06:13 | P.PN ---
Subjective Progress Note Date: 03/13/20 Principal diagnosis: Decompensated liver cirrhosis, hepatic encephalopathy, nausea and vomiting Patient is seen lying in bed tolerating diet. No nausea or vomiting currently. No bowel movements reported. Objective - Vital Signs Vital signs: Vital Signs Temp 97.6 F 03/12/20 07:42 Pulse 102 H 03/12/20 08:00 Resp 16 03/12/20 08:00 BP 108/72 03/12/20 07:42 Pulse Ox 98 03/12/20 07:42 Intake & Output 03/11/20 03/12/20 03/12/20 18:59 06:59 18:59 Intake Total 1160 Output Total 400 Balance 1160 -400 Intake: IV 1160 Sodium Chloride 0.9% 1, 520 000 ml @ 130 mls/hr IV . [id number] STA Rx#:[id number] Sodium Chloride 0.9% 1, 640 000 ml @ 80 mls/hr IV . [id number] GRISELDA Rx#:[id number] Output: Urine 400 Other: Voiding Method Urinal # Voids 1 1 - Exam On physical examination, patient appears comfortable in no apparent distress. HEAD: Normocephalic, atraumatic. EYES: No scleral icterus. No conjunctival injection. MOUTH: No lesions, tongue midline. NECK: Trachea midline, no gross abnormalities. ABDOMEN: Soft, obese. Bowel sounds are positive. No organomegaly. No guarding or rigidity. EXTREMITIES: No pedal edema. SKIN: No rashes, no jaundice. NEUROLOGIC: Alert and oriented 3. No asterixis noted. No focal deficits. - Labs CBC & Chem 7: 03/12/20 06:38 03/12/20 06:38 Labs: Abnormal Lab Results - Last 24 Hours (Table) 03/12/20 03/12/20 03/12/20 Range/Units 06:38 06:38 09:09 RBC 3.45 L (4.30-5.90) m/uL Hgb 9.6 L (13.0-17.5) gm/dL Hct 34.0 L (39.0-53.0) % MCHC 28.1 L (31.0-37.0) g/dL RDW 16.9 H (11.5-15.5) % Lymphocytes # 0.4 L (1.0-4.8) k/uL Chloride 115 H (98-107) mmol/L Carbon Dioxide 14 L (22-30) mmol/L BUN 29 H (9-20) mg/dL Glucose 135 H (74-99) mg/dL Alkaline Phosphatase 164 H (38-126) U/L Ammonia 63 H (<30) umol/L Albumin 3.3 L (3.5-5.0) g/dL Assessment and Plan (1) Intractable nausea and vomiting Narrative/Plan: 49-year-old male with multiple medical comorbidities including decompensated liver disease who was recently hospitalized due to gallstone pancreatitis and is status post cholecystectomy who presented back with nausea and vomiting. Previously the patient had been seen in 11/2019 with intractable nausea and vomiting and was taken for EGD with findings of a hiatal hernia, LA grade D esophagitis and gastric antral vascular ectasia. Unclear etiology of current symptoms with only mild elevation of amylase and lipase. Patient had been noncompliant with medications due to the nausea and vomiting and subsequently had elevated ammonia and encephalopathy. Current Visit: No Status: Acute Code(s): R11.2 - NAUSEA WITH VOMITING, UNSPECIFIED SNOMED Code(s): 540333885 (2) Hepatic encephalopathy Current Visit: Yes Status: Chronic Code(s): K72.90 - HEPATIC FAILURE, UNSPECIFIED WITHOUT COMA SNOMED Code(s): 95565013 (3) Abdominal pain Current Visit: No Status: Acute Code(s): R10.9 - UNSPECIFIED ABDOMINAL PAIN SNOMED Code(s): 95232549 (4) Alcoholic liver disease Current Visit: No Status: Acute Code(s): K70.9 - ALCOHOLIC LIVER DISEASE, UNSPECIFIED SNOMED Code(s): 45776089 (5) Cirrhosis Current Visit: No Status: Acute Code(s): K74.60 - UNSPECIFIED CIRRHOSIS OF LIVER SNOMED Code(s): 84453935 Plan: Supportive care Clear liquids as tolerated Protonix 40 mg IV twice a day Carafate 3 times a day before meals and at bedtime Zofran as needed for nausea Continue lactulose 3 times a day, with dose increased in additional dose given as the patient has not had a bowel movement Xifaxan twice a day Continue other chronic medications Continue to monitor clinically Thank you for allowing us to participate in the care of the patient we will continue to follow
[2020-03-13 07:52] LABS: ALT 7 U/L (4-49); AST 21 U/L (17-59); African American GFR (CKD) >90 (>60 ml/min/1.73 sqM); Albumin 2.8 g/dL (3.5-5.0); Alkaline Phosphatase 133 U/L (38-126); Amylase 163 U/L (30-110); Anion Gap 4 mmol/L; Blood Urea Nitrogen 15 mg/dL (9-20); Calcium 8.8 mg/dL (8.4-10.2); Carbon Dioxide 27 mmol/L (22-30); Chloride 108 mmol/L (98-107); Glucose 148 mg/dL (74-99); Non-African American GFR(CKD) >90 (>60 ml/min/1.73 sqM); Potassium 3.1 mmol/L (3.5-5.1); Sodium 139 mmol/L (137-145); Total Bilirubin 0.5 mg/dL (0.2-1.3); Total Protein 6.1 g/dL (6.3-8.2)
[2020-03-13] MEDS: SODIUM CHLORIDE 0.9% 1,000 ML IV SCH ×2 (07:59→17:22)
[2020-03-13] MEDS: ARMODAFINIL 250 MG PO SCH (08:01)
[2020-03-13] MEDS: PREGABALIN 100 MG CAP PO SCH ×3 (08:43→17:22)
[2020-03-13] MEDS: LACTULOSE 20 GM/30 ML CUP PO SCH ×4 (08:43→22:35)
[2020-03-13] MEDS: PANTOPRAZOLE 40 MG/10 ML VIAL IVP SCH ×2 (08:43→22:28)
[2020-03-13] MEDS: FUROSEMIDE 20 MG TAB PO SCH (08:44)
[2020-03-13] MEDS: RIFAXIMIN 550 MG TABLET PO SCH ×3 (08:44→22:29)
[2020-03-13] MEDS: MODAFINIL 200 MG TAB PO SCH ×2 (08:44→17:18)
[2020-03-13] MEDS: SUCRALFATE 1 GM TAB PO SCH ×3 (08:44→17:22)
[2020-03-13] MEDS: THIAMINE 100 MG TAB PO SCH (08:44)
[2020-03-13] MEDS: SPIRONOLACTONE 25 MG TAB PO SCH ×2 (08:44→22:29)
[2020-03-13] MEDS: FOLIC ACID 1 MG TAB PO SCH (08:44)
[2020-03-13] MEDS: DEXTROSE 5%-0.45% NACL 1,000 ML with SODIUM BICARB (1 MEQ/ML) 50 ML IV SCH ×6 (09:04→22:30)
[2020-03-13] MEDS: BUPRENORPHINE HCL 8 MG SUBLINGUAL SCH ×3 (09:04→22:36)
[2020-03-13] MEDS ORDERED: LACTULOSE 200 GM/300 ML (FROM 1/2 GAL JUG) RECTAL ONE (13:35)
--- NOTE | 2020-03-13 14:33 | XR ---
EXAMINATION TYPE: XR abdomen 2V DATE OF EXAM: 03/13/2020 COMPARISON: 03/10/2020 INDICATION: Constipation abdominal pain TECHNIQUE: Single view abdomen upright view. Additional supine views were obtained. FINDINGS: There are multiple prominent small bowel loops containing air. Larger caliber small bowel loops measu re up to 4.2 and 4.0 cm in size. Air is within the colon. No suspicious air-fluid levels or different ial air-fluid levels are evident. No free air is present. No mass effect is evident. Psoas margins ar e normal. Osseous structures are unremarkable. IMPRESSION: 1. Dilated prominent air-filled small bowel loops with air within the colon. Correlate for ileus. Ear ly obstruction is considered less likely. Follow-up is recommended.
[2020-03-13] MEDS ORDERED: LACTULOSE 20 GM/30 ML CUP PO SCH (16:00)
[2020-03-13] MEDS: MIRTAZAPINE 15 MG TAB PO SCH (22:29)
--- NOTE | 2020-03-13 22:51 | P.PN ---
Subjective Progress Note Date: 03/13/20 Principal diagnosis: Decompensated liver cirrhosis, hepatic encephalopathy, nausea and vomiting Patient is seen lying in bed more confused today. Only one bowel movement reported. Objective - Vital Signs Vital signs: Vital Signs Temp 98.9 F 03/13/20 07:15 Pulse 93 03/13/20 07:15 Resp 16 03/13/20 07:15 BP 125/79 03/13/20 07:15 Pulse Ox 92 L 03/13/20 07:15 Intake & Output 03/12/20 03/13/20 03/13/20 18:59 06:59 18:59 Output Total 400 400 Balance -400 -400 Output: Urine 400 400 Other: Voiding Method Urinal Urinal # Voids 6 1 - Exam On physical examination, patient appears comfortable in no apparent distress. HEAD: Normocephalic, atraumatic. EYES: No scleral icterus. No conjunctival injection. MOUTH: No lesions, tongue midline. NECK: Trachea midline, no gross abnormalities. ABDOMEN: Soft, obese. Bowel sounds are positive. No organomegaly. No guarding or rigidity. EXTREMITIES: No pedal edema. SKIN: No rashes, no jaundice. NEUROLOGIC: Alert and oriented x0. No asterixis noted. No focal deficits. - Labs CBC & Chem 7: 03/12/20 06:38 03/13/20 06:57 Labs: Abnormal Lab Results - Last 24 Hours (Table) 03/13/20 03/13/20 Range/Units 06:57 06:57 Potassium 3.1 L (3.5-5.1) mmol/L Chloride 108 H (98-107) mmol/L Creatinine 0.40 L (0.66-1.25) mg/dL Glucose 148 H (74-99) mg/dL Alkaline Phosphatase 133 H (38-126) U/L Ammonia 137 H (<30) umol/L Total Protein 6.1 L (6.3-8.2) g/dL Albumin 2.8 L (3.5-5.0) g/dL Amylase 163 H (30-110) U/L Lipase 578 H (23-300) U/L Assessment and Plan (1) Intractable nausea and vomiting Narrative/Plan: 49-year-old male with multiple medical comorbidities including decompensated liver disease who was recently hospitalized due to gallstone pancreatitis and is status post cholecystectomy who presented back with nausea and vomiting. Previously the patient had been seen in 11/2019 with intractable nausea and vomiting and was taken for EGD with findings of a hiatal hernia, LA grade D esophagitis and gastric antral vascular ectasia. Unclear etiology of current symptoms with only mild elevation of amylase and lipase. Patient had been noncompliant with medications due to the nausea and vomiting and subsequently had elevated ammonia and encephalopathy. Current Visit: No Status: Acute Code(s): R11.2 - NAUSEA WITH VOMITING, UNSPECIFIED SNOMED Code(s): 677274356 (2) Hepatic encephalopathy Current Visit: Yes Status: Chronic Code(s): K72.90 - HEPATIC FAILURE, UNSPECIFIED WITHOUT COMA SNOMED Code(s): 87972913 (3) Abdominal pain Current Visit: No Status: Acute Code(s): R10.9 - UNSPECIFIED ABDOMINAL PAIN SNOMED Code(s): 39362078 (4) Alcoholic liver disease Current Visit: No Status: Acute Code(s): K70.9 - ALCOHOLIC LIVER DISEASE, UNSPECIFIED SNOMED Code(s): 56188920 (5) Cirrhosis Current Visit: No Status: Acute Code(s): K74.60 - UNSPECIFIED CIRRHOSIS OF LIVER SNOMED Code(s): 62270974 Plan: Supportive care Clear liquids as tolerated Protonix 40 mg IV twice a day Carafate 3 times a day before meals and at bedtime Zofran as needed for nausea Continue lactulose increased to 4 times daily, with rectal lactulose ordered Xifaxan twice a day Continue other chronic medications Continue to monitor clinically Thank you for allowing us to participate in the care of the patient we will continue to follow
--- NOTE | 2020-03-13 23:18 | P.PN ---
Progress Note - Text Progress Note Date: 03/13/20 - Chief Complaint Vomiting Interval history: This is a pleasant 49-year-old patient of Dr. ortiz. Chronic stable medical conditions include alcoholic cirrhosis, portal hypertension, hyperlipidemia, peripheral neuropathy. EGD earlier this year showed a grade D distal esophagitis, large hiatal hernia, gastric antral vascular ectasia and and there was no esophageal varices. Admitted with acute pancreatitis.on February 15 patient started vomiting repeatedly. Had coffee-ground emesis. Became encephalopathic. Moved to the ICU. February 19 underwent open cholecystectomy. Patient went into pulmonary edema with IV fluids. Responded well to IV Lasix. Discharged on February 24. doing well. Tolerating a diet. Now presents with feeling worse for last 3 days. Started vomiting. Very slight abdominal pain if any. No fever no chills. Just tired. Rundown. No diarrhea. Since presentation been having some coffee-ground emesis. Admitted with coffee-ground emesis, hepatic encephalopathy Today-getting better. Resting in bed. Did tolerate clear liquid diet. Communicating better. No further nausea vomiting. Review of systems: Was done for constitutional, cardiovascular, GI, pulmonary. relevant finding as above Active Medications Folic Acid (Folic Acid) 1 mg PO DAILY [facility] Last Admin: 03/13/20 08:44 Dose: 1 mg Documented by: Furosemide (Lasix) 20 mg PO DAILY [facility] Last Admin: 03/13/20 08:44 Dose: 20 mg Documented by: Heparin Sodium (Porcine) (Heparin) 5,000 unit SQ Q8HR [facility] Last Admin: 03/13/20 17:18 Dose: 5,000 unit Documented by: Sodium Chloride (Saline 0.9%) 1,000 mls @ 80 mls/hr IV .[id number] [facility] Last Admin: 03/13/20 17:22 Dose: Not Given Documented by: Sodium Bicarbonate 50 ml/ (Dextrose/Sodium Chloride) 1,050 mls @ 100 mls/hr IV .[id number] [facility] Last Admin: 03/13/20 22:30 Dose: 100 mls/hr Documented by: Lactulose (Cephulac) 30 gm PO QID [facility] Last Admin: 03/13/20 22:35 Dose: 30 gm Documented by: Metoclopramide HCl (Reglan) 5 mg IVP Q6HR PRN PRN Reason: Nausea And Vomiting Last Admin: 03/11/20 20:50 Dose: 5 mg Documented by: Mirtazapine (Remeron) 7.5 mg PO HS [facility] Last Admin: 03/13/20 22:29 Dose: 7.5 mg Documented by: Modafinil (Provigil) 200 mg PO BID@0900,1800 [facility] Last Admin: 03/13/20 17:18 Dose: 200 mg Documented by: Naloxone HCl (Narcan) 0.2 mg IV Q2M PRN PRN Reason: Opioid Reversal Non-Formulary Medication (Armodafinil [Nuvigil]) 250 mg PO DAILY [facility] Last Admin: 03/13/20 08:01 Dose: Not Given Documented by: Patient's Own ( Buprenorphine Hcl [ Subutex] 8 Mg) 8 mg SUBLINGUAL TID [facility] Last Admin: 03/13/20 22:36 Dose: 8 mg Documented by: Pantoprazole Sodium (Protonix) 40 mg IVP BID [facility] Last Admin: 03/13/20 22:28 Dose: 40 mg Documented by: Pregabalin (Lyrica) 200 mg PO AC-TID [facility] Last Admin: 03/13/20 17:22 Dose: 200 mg Documented by: Rifaximin (Xifaxan) 550 mg PO TID [facility] Stop: 04/09/20 16:01 Last Admin: 03/13/20 22:29 Dose: 550 mg Documented by: Spironolactone (Aldactone) 50 mg PO BID [facility] Last Admin: 03/13/20 22:29 Dose: 50 mg Documented by: Sucralfate (Carafate) 1 gm PO AC-TID [facility] Last Admin: 03/13/20 17:22 Dose: 1 gm Documented by: Thiamine HCl (Vitamin B-1) 100 mg PO DAILY [facility] Last Admin: 03/13/20 08:44 Dose: 100 mg Documented by: Physical examination: VITAL SIGNS: 98.9, 93, 16, 125/79, 92% on room air GENERAL: Laying in bed, more comfortable. EYES: Pupils equal. Conjunctiva pale. HEENT: External appearance of nose and ears normal, oral cavity dry. NECK: JVD not raised; masses not palpable. HEART: First and second heart sounds are normal; no edema. LUNGS: Respiratory Rate normal, lungs are clear ABDOMEN: Soft, no tenderness,dressing over the right upper quadrant no guarding or rigidity, liver spleen not palpable, possible hepatomegaly. PSYCH: Answering questions White count 3.1 bun 15 creatinine 0.40 alkaline phosphatase 133 ammonia 137 Previous testing White count 5.3 hemoglobin 12.2 platelets 466 potassium 5.2 creatinine 0.76 amylase 223 lipase 682 ammonia 84 bicarb 10. Assessment: -Patient presented with vomiting for 3 days now with coffee-ground emesis suspect upper GI bleed.-Slowly improving -Acute metabolic acidosis POA- -mild hepatic encephalopathy- -Acute GI bleed with coffee-ground emesis-POA -Recent cholecystectomy. 4 gallstones and pancreatitis -Alcoholic cirrhosis -Portal hypertension -Diabetic peripheral neuropathy -Left foot wound secondary to neuropathy-healed -GERD -Large hiatal hernia -LA grade D distal esophagitis, - large hiatal hernia, -gastric antral vascular ectasia -Acute blood loss Anemia secondary to GI blood loss. Plan: Continue with IV fluids with bicarbonate. Continue with lactulose.-Does increased to 4 times a day with a rectal lactulose as per GI. Thank you Dr. Lerma
[2020-03-14] MEDS: HEPARIN SODIUM,PORCINE 5,000 UNIT/ML 1 ML VIAL SQ SCH ×3 (01:16→16:38)
--- NOTE | 2020-03-14 07:34 | P.PN ---
Subjective Progress Note Date: 03/13/20 CHIEF COMPLAINT: Nausea, vomiting HISTORY OF PRESENT ILLNESS: Patient examined at the bedside. Patient denies abdominal pain. Denies nausea or vomiting. Tolerating clear liquid diet. PHYSICAL EXAM: VITAL SIGNS: Reviewed. GENERAL: Well-developed in no acute distress. HEENT: No sclera icterus. Extraocular movements grossly intact. Moist buccal mucosa. Head is atraumatic, normocephalic. ABDOMEN: Soft. Nondistended. Nontender. NEUROLOGIC: Patient sleepy during examination but easily arousable to verbal stimuli. ASSESSMENT: 1. Nausea, vomiting 2. History of recent open cholecystectomy secondary to gallstone pancreatitis 3. Hepatic encephalopathy PLAN: -Diet advanced to full liquids per internal medicine -GI following -No surgical intervention recommended Nurse practitioner note has been reviewed by physician. Signing provider agrees with the documented findings, assessment, and plan of care. Objective - Vital Signs Vital signs: Vital Signs Temp 98.9 F 03/13/20 07:15 Pulse 93 03/13/20 07:15 Resp 16 03/13/20 07:15 BP 125/79 03/13/20 07:15 Pulse Ox 92 L 03/13/20 07:15 Intake & Output 03/12/20 03/13/20 03/13/20 18:59 06:59 18:59 Output Total 400 400 Balance -400 -400 Output: Urine 400 400 Other: Voiding Method Urinal Urinal # Voids 6 1 - Labs CBC & Chem 7: 03/12/20 06:38 03/13/20 06:57 Labs: Abnormal Lab Results - Last 24 Hours (Table) 03/13/20 03/13/20 Range/Units 06:57 06:57 Potassium 3.1 L (3.5-5.1) mmol/L Chloride 108 H (98-107) mmol/L Creatinine 0.40 L (0.66-1.25) mg/dL Glucose 148 H (74-99) mg/dL Alkaline Phosphatase 133 H (38-126) U/L Ammonia 137 H (<30) umol/L Total Protein 6.1 L (6.3-8.2) g/dL Albumin 2.8 L (3.5-5.0) g/dL Amylase 163 H (30-110) U/L Lipase 578 H (23-300) U/L
[2020-03-14] MEDS: ARMODAFINIL 250 MG PO SCH (07:40)
[2020-03-14 08:00] LABS: Anisocytosis Slight; HCT 28.1 % (39.0-53.0); HGB 8.7 gm/dL (13.0-17.5); Hypochromasia Marked; MCH 30.1 pg (25.0-35.0); MCHC 30.8 g/dL (31.0-37.0); MCV 97.8 fL (80.0-100.0); Macrocytosis Slight; Mean Platelet Volume 8.2; RBC 2.88 m/uL (4.30-5.90); RDW 16.3 % (11.5-15.5); WBC 2.6 k/uL (3.8-10.6)
[2020-03-14] MEDS: PANTOPRAZOLE 40 MG/10 ML VIAL IVP SCH ×2 (08:00→20:51)
[2020-03-14] MEDS: FOLIC ACID 1 MG TAB PO SCH (08:01)
[2020-03-14] MEDS: SUCRALFATE 1 GM TAB PO SCH ×3 (08:01→18:04)
[2020-03-14] MEDS: LACTULOSE 20 GM/30 ML CUP PO SCH ×4 (08:01→20:53)
[2020-03-14] MEDS: PREGABALIN 100 MG CAP PO SCH ×3 (08:01→18:04)
[2020-03-14] MEDS: SPIRONOLACTONE 25 MG TAB PO SCH ×2 (08:01→20:52)
[2020-03-14] MEDS: MODAFINIL 200 MG TAB PO SCH ×2 (08:01→18:04)
[2020-03-14] MEDS: THIAMINE 100 MG TAB PO SCH (08:01)
[2020-03-14] MEDS: SODIUM CHLORIDE 0.9% 1,000 ML IV SCH ×2 (08:02→16:04)
[2020-03-14] MEDS: RIFAXIMIN 550 MG TABLET PO SCH ×3 (08:02→20:51)
[2020-03-14] MEDS: FUROSEMIDE 20 MG TAB PO SCH (08:02)
[2020-03-14 08:06] LABS: African American GFR (CKD) >90 (>60 ml/min/1.73 sqM); Anion Gap 8 mmol/L; Blood Urea Nitrogen 10 mg/dL (9-20); Calcium 8.6 mg/dL (8.4-10.2); Carbon Dioxide 29 mmol/L (22-30); Chloride 104 mmol/L (98-107); Glucose 133 mg/dL (74-99); Non-African American GFR(CKD) >90 (>60 ml/min/1.73 sqM); Sodium 141 mmol/L (137-145)
[2020-03-14 08:17] LABS: Platelet Count 140 k/uL (150-450)
[2020-03-14] MEDS ORDERED: POTASSIUM CHLORIDE ER 20 MEQ TAB.ER PO STA (09:20)
[2020-03-14] MEDS: DEXTROSE 5%-0.45% NACL 1,000 ML with SODIUM BICARB (1 MEQ/ML) 50 ML IV SCH ×2 (11:55)
[2020-03-14] MEDS: BUPRENORPHINE HCL 8 MG SUBLINGUAL SCH ×3 (11:55→20:51)
--- NOTE | 2020-03-14 13:59 | P.PN ---
Progress Note - Text Progress Note Date: 03/14/20 Interval History: Patient was seen for psychiatric follow-up today for delirium. Patient was st arted on Remeron 2 days ago 7.5 mg daily at bedtime has been taking the medication at nighttime. Patient's ammonia was noted to be 68 today. Patient was seen at the bedside and continues to appear to be somewhat lethargic however was more awake today compared to previous days. She had improvement in his attention span and was able to follow more commands. He did not offer any overnight complaints and states that he's been sleeping well. He states that his mood is "the same" and denies any depressive symptoms. He denied any anxiety. He continues to be preoccupied with drinking water. At this time patient denies any suicidal or homical ideations, intent or plan. Patient denies any auditory, visual hallucinations and denies any paranoia or delusions. Patient denies any side effects from the medications and has been compliant with meds. Mental Status Exam: General Appearance: Patient appears to be stated age is less lethargic and has improving attention span. Patient appears to have improving hygiene and grooming wearing hospital gown with improving eye contact. Behavior: Patient is calmly lying in bed without any agitated behavior. follows most commands. Speech: Patient's speech is fluent and nonpressured. Mood/Affect: Patient reports their mood is "the same", affect is congruent and constricted Suicidality/Homicidality: Patient denies having any suicidal or homicidal i deation intent or plan. Perceptions: Patient denies any visual hallucinations and denies any auditory hallucinations Though content/process: Preoccupied with water, goal oriented. [place]. Memory and concentration: AOX2, believes it is "2020" however does not know the specific date. attention span improving. Judgment and insight: poor, improving Assessment Delirium, likely secondary to toxic metabolic causes, improving History of depression and anxiety Plan: -At this time patient DOES NOT meet criteria for inpatient psychiatric admission. clinically patient's delirium appears to be improving mildly with improvement in his underlying medical conditions. -Patient DOES NOT have decision making capacity at this time and is unable to reason through and communicate/appreciate the risks, benefits and alternatives to treatment. -Delirium precautions recommended with patient including - avoiding use of narcotics and SIDE LASTER sedatives, limit anticholinergic medications when possible, frequent re-orientation, minimize use of restraints, open window shades during the day and close them at night -Would recommend the following medication changes/additions: continue with Remeron 7.5 mg daily at bedtime for sleep/mood/appetite. If patient becomes more agitated than he can receive Haldol PRN 1-2 mg every 6 hours as needed for agitation. -Continue with medical management and correction of patient's underlying electrolyte abnormalities and medical condition including improving ammonia levels. -Will sign off at this time. -Please contact with any questions.
--- NOTE | 2020-03-14 15:07 | P.PN ---
Subjective Progress Note Date: 03/14/20 CHIEF COMPLAINT: Nausea, vomiting HISTORY OF PRESENT ILLNESS: Patient examined at the bedside. Patient denies abdominal pain. Denies nausea or vomiting. Tolerating full liquid diet. PHYSICAL EXAM: VITAL SIGNS: Reviewed. GENERAL: Well-developed in no acute distress. HEENT: No sclera icterus. Extraocular movements grossly intact. Moist buccal mucosa. Head is atraumatic, normocephalic. ABDOMEN: Soft. Nondistended. Nontender. NEUROLOGIC: Patient awake and alert. ASSESSMENT: 1. Nausea, vomiting 2. History of recent open cholecystectomy secondary to gallstone pancreatitis 3. Hepatic encephalopathy PLAN: -Continue diet as tolerated. May advance diet from a surgical standpoint -GI following -No surgical intervention recommended Nurse practitioner note has been reviewed by physician. Signing provider agrees with the documented findings, assessment, and plan of care. Objective - Vital Signs Vital signs: Vital Signs Temp 98.1 F 03/14/20 07:00 Pulse 85 03/14/20 07:00 Resp 17 03/14/20 07:00 BP 117/72 03/14/20 07:00 Pulse Ox 97 03/14/20 07:00 Intake & Output 03/13/20 03/14/20 03/14/20 18:59 06:59 18:59 Intake Total 540 Output Total 200 Balance 540 -200 Intake: Oral 540 Output: Urine 200 Other: Voiding Method Urinal # Voids 3 3 # Bowel Movements 1 1 - Labs CBC & Chem 7: 03/14/20 07:09 03/14/20 07:09 Labs: Abnormal Lab Results - Last 24 Hours (Table) 03/14/20 03/14/20 03/14/20 Range/Units 07:09 07:09 09:35 WBC 2.6 L (3.8-10.6) k/uL RBC 2.88 L (4.30-5.90) m/uL Hgb 8.7 L (13.0-17.5) gm/dL Hct 28.1 L (39.0-53.0) % MCHC 30.8 L (31.0-37.0) g/dL RDW 16.3 H (11.5-15.5) % Plt Count 140 L D (150-450) k/uL Potassium 3.0 L (3.5-5.1) mmol/L Creatinine 0.39 L (0.66-1.25) mg/dL Glucose 133 H (74-99) mg/dL Ammonia 68 H (<30) umol/L
--- NOTE | 2020-03-14 20:05 | P.PN ---
Progress Note - Text Progress Note Date: 03/14/20 - Chief Complaint Vomiting Interval history: This is a pleasant 49-year-old patient of Dr. ortiz. Chronic stable medical conditions include alcoholic cirrhosis, portal hypertension, hyperlipidemia, peripheral neuropathy. EGD earlier this year showed a grade D distal esophagitis, large hiatal hernia, gastric antral vascular ectasia and and there was no esophageal varices. Admitted with acute pancreatitis.on February 15 patient started vomiting repeatedly. Had coffee-ground emesis. Became encephalopathic. Moved to the ICU. February 19 underwent open cholecystectomy. Patient went into pulmonary edema with IV fluids. Responded well to IV Lasix. Discharged on February 24. doing well. Tolerating a diet. Now presents with feeling worse for last 3 days. Started vomiting. Very slight abdominal pain if any. No fever no chills. Just tired. Rundown. No diarrhea. Since presentation been having some coffee-ground emesis. Admitted with coffee-ground emesis, hepatic encephalopathy. Put on PPIs. Initially made nothing by mouth. And some clear liquids. Lactulose was increased. Today-feeling much improved today.. Tolerated clear liquid diet. More communicative. Received increased doses of lactulose yesterday. Review of systems: Was done for constitutional, cardiovascular, GI, pulmonary. relevant finding as above Active Medications Folic Acid (Folic Acid) 1 mg PO DAILY [facility] Last Admin: 03/14/20 08:01 Dose: 1 mg Documented by: Furosemide (Lasix) 20 mg PO DAILY [facility] Last Admin: 03/14/20 08:02 Dose: 20 mg Documented by: Heparin Sodium (Porcine) (Heparin) 5,000 unit SQ Q8HR [facility] Last Admin: 03/14/20 16:38 Dose: 5,000 unit Documented by: Sodium Chloride (Saline 0.9%) 1,000 mls @ 80 mls/hr IV .[id number] [facility] Last Admin: 03/14/20 16:04 Dose: Not Given Documented by: Sodium Bicarbonate 50 ml/ (Dextrose/Sodium Chloride) 1,050 mls @ 100 mls/hr IV .[id number] [facility] Last Admin: 03/14/20 11:55 Dose: 100 mls/hr Documented by: Lactulose (Cephulac) 30 gm PO QID [facility] Last Admin: 03/14/20 18:04 Dose: 30 gm Documented by: Metoclopramide HCl (Reglan) 5 mg IVP Q6HR PRN PRN Reason: Nausea And Vomiting Last Admin: 03/11/20 20:50 Dose: 5 mg Documented by: Mirtazapine (Remeron) 7.5 mg PO HS [facility] Last Admin: 03/13/20 22:29 Dose: 7.5 mg Documented by: Modafinil (Provigil) 200 mg PO BID@0900,1800 [facility] Last Admin: 03/14/20 18:04 Dose: 200 mg Documented by: Naloxone HCl (Narcan) 0.2 mg IV Q2M PRN PRN Reason: Opioid Reversal Non-Formulary Medication (Armodafinil [Nuvigil]) 250 mg PO DAILY [facility] Last Admin: 03/14/20 07:40 Dose: Not Given Documented by: Patient's Own ( Buprenorphine Hcl [ Subutex] 8 Mg) 8 mg SUBLINGUAL TID [facility] Last Admin: 03/14/20 16:38 Dose: 8 mg Documented by: Pantoprazole Sodium (Protonix) 40 mg IVP BID [facility] Last Admin: 03/14/20 08:00 Dose: 40 mg Documented by: Pregabalin (Lyrica) 200 mg PO AC-TID [facility] Last Admin: 03/14/20 18:04 Dose: 200 mg Documented by: Rifaximin (Xifaxan) 550 mg PO TID [facility] Stop: 04/09/20 16:01 Last Admin: 03/14/20 16:38 Dose: 550 mg Documented by: Spironolactone (Aldactone) 50 mg PO BID [facility] Last Admin: 03/14/20 08:01 Dose: 50 mg Documented by: Sucralfate (Carafate) 1 gm PO AC-TID [facility] Last Admin: 03/14/20 18:04 Dose: 1 gm Documented by: Thiamine HCl (Vitamin B-1) 100 mg PO DAILY [facility] Last Admin: 03/14/20 08:01 Dose: 100 mg Documented by: Physical examination: VITAL SIGNS: 98.1, 85, 17, 117/72, 97% on 3 L GENERAL: Laying in bed, more awake today EYES: Pupils equal. Conjunctiva pale. HEENT: External appearance of nose and ears normal, oral cavity dry. NECK: JVD not raised; masses not palpable. HEART: First and second heart sounds are normal; no edema. LUNGS: Respiratory Rate normal, lungs are clear ABDOMEN: Soft, no tenderness, no guarding or rigidity, liver spleen not pa lpable, possible hepatomegaly. PSYCH: More awake and answering questions. INVESTIGATIONS, reviewed in the clinical context: White count 2.6 hemoglobin 8.7 platelets 140 potassium 3 creatinine 6.39 ammonia 68 Previous testing White count 5.3 hemoglobin 12.2 platelets 466 potassium 5.2 creatinine 0.76 amylase 223 lipase 682 ammonia 84 bicarb 10. Ammonia 137 Assessment: -coffee-ground emesis suspect upper GI bleed.-Clinically improving -Acute metabolic acidosis POA- -acute on chronic hepatic encephalopathy-POA -Acute GI bleed with coffee-ground emesis-POA -Recent cholecystectomy. 4 gallstones and pancreatitis -Alcoholic cirrhosis -Portal hypertension -Diabetic peripheral neuropathy -Left foot wound secondary to neuropathy-healed -GERD -Large hiatal hernia -LA grade D distal esophagitis, - large hiatal hernia, -gastric antral vascular ectasia Plan: -Discussed with the patient. Potassium to be replaced. Increase diet to full liquids and soft. No tenderness to have the patient sit up in a chair. Overall prognosis guarded. Repeat labs in the morning..
[2020-03-14] MEDS: MIRTAZAPINE 15 MG TAB PO SCH (20:51)
--- NOTE | 2020-03-14 21:48 | P.PN ---
Subjective Progress Note Date: 03/14/20 Principal diagnosis: Decompensated liver cirrhosis, hepatic encephalopathy, nausea and vomiting Patient is seen lying in bed more clear of thought today. He is answering appropriately. Tolerating a liquid diet. Objective - Vital Signs Vital signs: Vital Signs Temp 98.1 F 03/14/20 07:00 Pulse 85 03/14/20 07:00 Resp 17 03/14/20 07:00 BP 117/72 03/14/20 07:00 Pulse Ox 97 03/14/20 07:00 Intake & Output 03/13/20 03/14/20 03/14/20 18:59 06:59 18:59 Intake Total 540 Output Total 200 Balance 540 -200 Intake: Oral 540 Output: Urine 200 Other: Voiding Method Urinal # Voids 3 3 # Bowel Movements 1 1 - Exam On physical examination, patient appears comfortable in no apparent distress. HEAD: Normocephalic, atraumatic. EYES: No scleral icterus. No conjunctival injection. MOUTH: No lesions, tongue midline. NECK: Trachea midline, no gross abnormalities. ABDOMEN: Soft, obese. Bowel sounds are positive. No organomegaly. No guarding or rigidity. EXTREMITIES: No pedal edema. SKIN: No rashes, no jaundice. NEUROLOGIC: Alert and oriented x3. No asterixis noted. No focal deficits. - Labs CBC & Chem 7: 03/14/20 07:09 03/14/20 07:09 Labs: Abnormal Lab Results - Last 24 Hours (Table) 03/14/20 03/14/20 03/14/20 Range/Units 07:09 07:09 09:35 WBC 2.6 L (3.8-10.6) k/uL RBC 2.88 L (4.30-5.90) m/uL Hgb 8.7 L (13.0-17.5) gm/dL Hct 28.1 L (39.0-53.0) % MCHC 30.8 L (31.0-37.0) g/dL RDW 16.3 H (11.5-15.5) % Plt Count 140 L D (150-450) k/uL Potassium 3.0 L (3.5-5.1) mmol/L Creatinine 0.39 L (0.66-1.25) mg/dL Glucose 133 H (74-99) mg/dL Ammonia 68 H (<30) umol/L Assessment and Plan (1) Intractable nausea and vomiting Narrative/Plan: 49-year-old male with multiple medical comorbidities including decompensated liver disease who was recently hospitalized due to gallstone pancreatitis and is status post cholecystectomy who presented back with nausea and vomiting. Previously the patient had been seen in 11/2019 with intractable nausea and vomiting and was taken for EGD with findings of a hiatal hernia, LA grade D esophagitis and gastric antral vascular ectasia. Unclear etiology of current symptoms with only mild elevation of amylase and lipase. Patient had been noncompliant with medications due to the nausea and vomiting and subsequently had elevated ammonia and encephalopathy. Current Visit: No Status: Acute Code(s): R11.2 - NAUSEA WITH VOMITING, UNSPECIFIED SNOMED Code(s): 383976185 (2) Hepatic encephalopathy Current Visit: Yes Status: Chronic Code(s): K72.90 - HEPATIC FAILURE, UNSPECIFIED WITHOUT COMA SNOMED Code(s): 68238129 (3) Abdominal pain Current Visit: No Status: Acute Code(s): R10.9 - UNSPECIFIED ABDOMINAL PAIN SNOMED Code(s): 67462568 (4) Alcoholic liver disease Current Visit: No Status: Acute Code(s): K70.9 - ALCOHOLIC LIVER DISEASE, UNSPECIFIED SNOMED Code(s): 69155382 (5) Cirrhosis Current Visit: No Status: Acute Code(s): K74.60 - UNSPECIFIED CIRRHOSIS OF LIVER SNOMED Code(s): 94734119 Plan: Supportive care Clear liquids as tolerated Protonix 40 mg IV twice a day Carafate 3 times a day before meals and at bedtime Zofran as needed for nausea Continue lactulose increased 4 times daily Xifaxan twice a day Continue other chronic medications Continue to monitor clinically Thank you for allowing us to participate in the care of the patient we will continue to follow
[2020-03-15] MEDS: HEPARIN SODIUM,PORCINE 5,000 UNIT/ML 1 ML VIAL SQ SCH ×3 (01:30→16:08)
[2020-03-15] MEDS: DEXTROSE 5%-0.45% NACL 1,000 ML with SODIUM BICARB (1 MEQ/ML) 50 ML IV SCH ×6 (06:24→21:24)
[2020-03-15 08:15] LABS: Anisocytosis Slight; HCT 26.3 % (39.0-53.0); Hypochromasia Marked; MCH 28.8 pg (25.0-35.0); MCHC 30.4 g/dL (31.0-37.0); MCV 94.7 fL (80.0-100.0); Mean Platelet Volume 8.8; Platelet Count 111 k/uL (150-450); RBC 2.78 m/uL (4.30-5.90); RDW 16.4 % (11.5-15.5); WBC 2.4 k/uL (3.8-10.6)
[2020-03-15] MEDS: PANTOPRAZOLE 40 MG/10 ML VIAL IVP SCH ×2 (08:39→21:25)
[2020-03-15] MEDS: LACTULOSE 20 GM/30 ML CUP PO SCH ×4 (08:39→21:25)
[2020-03-15] MEDS: MODAFINIL 200 MG TAB PO SCH ×2 (08:39→16:09)
[2020-03-15] MEDS: PREGABALIN 100 MG CAP PO SCH ×3 (08:39→16:08)
[2020-03-15] MEDS: THIAMINE 100 MG TAB PO SCH (08:39)
[2020-03-15] MEDS: FOLIC ACID 1 MG TAB PO SCH (08:40)
[2020-03-15] MEDS: BUPRENORPHINE HCL 8 MG SUBLINGUAL SCH ×3 (08:40→21:24)
[2020-03-15] MEDS: SODIUM CHLORIDE 0.9% 1,000 ML IV SCH ×2 (08:40→20:06)
[2020-03-15] MEDS: SPIRONOLACTONE 25 MG TAB PO SCH ×2 (08:40→21:24)
[2020-03-15] MEDS: SUCRALFATE 1 GM TAB PO SCH ×3 (08:40→16:08)
[2020-03-15] MEDS: FUROSEMIDE 20 MG TAB PO SCH (08:40)
[2020-03-15] MEDS: RIFAXIMIN 550 MG TABLET PO SCH ×3 (08:40→21:24)
[2020-03-15 08:46] LABS: ALT 8 U/L (4-49); AST 20 U/L (17-59); African American GFR (CKD) >90 (>60 ml/min/1.73 sqM); Albumin 2.9 g/dL (3.5-5.0); Alkaline Phosphatase 133 U/L (38-126); Amylase 72 U/L (30-110); Anion Gap 5 mmol/L; Blood Urea Nitrogen 8 mg/dL (9-20); Calcium 8.7 mg/dL (8.4-10.2); Carbon Dioxide 34 mmol/L (22-30); Chloride 101 mmol/L (98-107); Glucose 167 mg/dL (74-99); Non-African American GFR(CKD) >90 (>60 ml/min/1.73 sqM); Potassium 2.9 mmol/L (3.5-5.1); Sodium 140 mmol/L (137-145); Total Bilirubin 0.5 mg/dL (0.2-1.3); Total Protein 5.8 g/dL (6.3-8.2)
[2020-03-15] MEDS: ARMODAFINIL 250 MG PO SCH (09:03)
[2020-03-15] MEDS: POTASSIUM CHLORIDE ER 20 MEQ TAB.ER PO SCH ×5 (11:31→16:08)
--- NOTE | 2020-03-15 12:25 | P.PN ---
Subjective Progress Note Date: 03/15/20 CHIEF COMPLAINT: Nausea, vomiting HISTORY OF PRESENT ILLNESS: Patient examined at the bedside. Patient denies abdominal pain. Denies nausea or vomiting. Tolerating full liquid diet. PHYSICAL EXAM: VITAL SIGNS: Reviewed. GENERAL: Well-developed in no acute distress. HEENT: No sclera icterus. Extraocular movements grossly intact. Moist buccal mucosa. Head is atraumatic, normocephalic. ABDOMEN: Soft. Nondistended. Nontender. NEUROLOGIC: Patient awake and alert. ASSESSMENT: 1. Nausea, vomiting 2. History of recent open cholecystectomy secondary to gallstone pancreatitis 3. Hepatic encephalopathy PLAN: -Continue diet as tolerated. May advance diet from a surgical standpoint -GI following -No surgical intervention recommended -We will sign off. Please reconsult if needed. Nurse practitioner note has been reviewed by physician. Signing provider agrees with the documented findings, assessment, and plan of care. Objective - Vital Signs Vital signs: Vital Signs Temp 99.1 F 03/15/20 07:00 Pulse 74 03/15/20 07:00 Resp 16 03/15/20 07:00 BP 110/64 03/15/20 07:00 Pulse Ox 97 03/15/20 07:00 Intake & Output 03/14/20 03/15/20 03/15/20 18:59 06:59 18:59 Intake Total 540 800 Output Total 400 Balance 540 -400 800 Intake: Intake, IV Titration 800 Amount Dextrose 5%-0.45% NaCl 1, 800 000 ml @ 100 mls/hr IV . [id number] GRISELDA with Sodium Bicarb (1 Meq/ml) 50 ml Rx#:[id number] Oral 540 Output: Urine 400 Other: Voiding Method Diaper Incontinent # Voids 3 3 # Bowel Movements 1 - Labs CBC & Chem 7: 03/15/20 07:52 03/15/20 07:52 Labs: Abnormal Lab Results - Last 24 Hours (Table) 03/15/20 03/15/20 03/15/20 Range/Units 07:52 07:52 07:52 WBC 2.4 L (3.8-10.6) k/uL RBC 2.78 L (4.30-5.90) m/uL Hgb 8.0 L (13.0-17.5) gm/dL Hct 26.3 L (39.0-53.0) % MCHC 30.4 L (31.0-37.0) g/dL RDW 16.4 H (11.5-15.5) % Plt Count 111 L (150-450) k/uL Potassium 2.9 L (3.5-5.1) mmol/L Carbon Dioxide 34 H (22-30) mmol/L BUN 8 L (9-20) mg/dL Creatinine 0.39 L (0.66-1.25) mg/dL Glucose 167 H (74-99) mg/dL Alkaline Phosphatase 133 H (38-126) U/L Ammonia 44 H (<30) umol/L Total Protein 5.8 L (6.3-8.2) g/dL Albumin 2.9 L (3.5-5.0) g/dL
--- NOTE | 2020-03-15 20:37 | P.PN ---
Progress Note - Text Progress Note Date: 03/15/20 - Chief Complaint Vomiting Interval history: This is a pleasant 49-year-old patient of Dr. ortiz. Chronic stable medical conditions include alcoholic cirrhosis, portal hypertension, hyperlipidemia, peripheral neuropathy. EGD earlier this year showed a grade D distal esophagitis, large hiatal hernia, gastric antral vascular ectasia and and there was no esophageal varices. Admitted with acute pancreatitis.on February 15 patient started vomiting repeatedly. Had coffee-ground emesis. Became encephalopathic. Moved to the ICU. February 19 underwent open cholecystectomy. Patient went into pulmonary edema with IV fluids. Responded well to IV Lasix. Discharged on February 24. doing well. Tolerating a diet. Now presents with feeling worse for last 3 days. Started vomiting. Very slight abdominal pain if any. No fever no chills. Just tired. Rundown. No diarrhea. Since presentation been having some coffee-ground emesis. Admitted with coffee-ground emesis, hepatic encephalopathy. Put on PPIs. Initially made nothing by mouth. And some clear liquids. Lactulose was increased. Today-doing better. More awake. Less tired. Diet was advanced per surgery. Patient had 100% of his lunch. Review of systems: Was done for constitutional, cardiovascular, GI, pulmonary. relevant finding as above Active Medications Folic Acid (Folic Acid) 1 mg PO DAILY [facility] Last Admin: 03/15/20 08:40 Dose: 1 mg Documented by: Furosemide (Lasix) 20 mg PO DAILY [facility] Last Admin: 03/15/20 08:40 Dose: 20 mg Documented by: Heparin Sodium (Porcine) (Heparin) 5,000 unit SQ Q8HR [facility] Last Admin: 03/15/20 16:08 Dose: 5,000 unit Documented by: Sodium Chloride (Saline 0.9%) 1,000 mls @ 80 mls/hr IV .[id number] [facility] Last Admin: 03/15/20 20:06 Dose: Not Given Documented by: Sodium Bicarbonate 50 ml/ (Dextrose/Sodium Chloride) 1,050 mls @ 100 mls/hr IV .[id number] [facility] Last Admin: 03/15/20 08:40 Dose: 100 mls/hr Documented by: Lactulose (Cephulac) 30 gm PO QID [facility] Last Admin: 03/15/20 16:09 Dose: 30 gm Documented by: Metoclopramide HCl (Reglan) 5 mg IVP Q6HR PRN PRN Reason: Nausea And Vomiting Last Admin: 03/11/20 20:50 Dose: 5 mg Documented by: Mirtazapine (Remeron) 7.5 mg PO HS [facility] Last Admin: 03/14/20 20:51 Dose: 7.5 mg Documented by: Modafinil (Provigil) 200 mg PO BID@0900,1800 [facility] Last Admin: 03/15/20 16:09 Dose: 200 mg Documented by: Naloxone HCl (Narcan) 0.2 mg IV Q2M PRN PRN Reason: Opioid Reversal Non-Formulary Medication (Armodafinil [Nuvigil]) 250 mg PO DAILY [facility] Last Admin: 03/15/20 09:03 Dose: Not Given Documented by: Patient's Own ( Buprenorphine Hcl [ Subutex] 8 Mg) 8 mg SUBLINGUAL TID [facility] Last Admin: 03/15/20 16:08 Dose: 8 mg Documented by: Pantoprazole Sodium (Protonix) 40 mg IVP BID [facility] Last Admin: 03/15/20 08:39 Dose: 40 mg Documented by: Pregabalin (Lyrica) 200 mg PO AC-TID [facility] Last Admin: 03/15/20 16:08 Dose: 200 mg Documented by: Rifaximin (Xifaxan) 550 mg PO TID [facility] Stop: 04/09/20 16:01 Last Admin: 03/15/20 16:17 Dose: 550 mg Documented by: Spironolactone (Aldactone) 50 mg PO BID [facility] Last Admin: 03/15/20 08:40 Dose: 50 mg Documented by: Sucralfate (Carafate) 1 gm PO AC-TID [facility] Last Admin: 03/15/20 16:08 Dose: 1 gm Documented by: Thiamine HCl (Vitamin B-1) 100 mg PO DAILY [facility] Last Admin: 03/15/20 08:39 Dose: 100 mg Documented by: Physical examination: VITAL SIGNS: 99.1, 74, 16, 110/64, 97% on room air GENERAL: Laying in bed, doing better EYES: Pupils equal. Conjunctiva pale. HEENT: External appearance of nose and ears normal, oral cavity dry. NECK: JVD not raised; masses not palpable. HEART: First and second heart sounds are normal; no edema. LUNGS: Respiratory Rate normal, lungs are clear ABDOMEN: Soft, no tenderness, no guarding or rigidity, liver spleen not palpable, possible hepatomegaly. PSYCH: More awake and answering questions. INVESTIGATIONS, reviewed in the clinical context: White count 2.4 hemoglobin 8 L 111 potassium 2.9 creatinine 0.39 ammonia 44 Previous testing White count 5.3 hemoglobin 12.2 platelets 466 potassium 5.2 creatinine 0.76 amylase 223 lipase 682 ammonia 84 bicarb 10. Ammonia 137 Assessment: -coffee-ground emesis suspect upper GI bleed.-Stabilized -Acute metabolic acidosis POA- -acute on chronic hepatic [id number]-ords improved -Acute GI bleed with coffee-ground emesis-POA -Recent cholecystectomy. 4 gallstones and pancreatitis -Alcoholic cirrhosis -Portal hypertension -Diabetic peripheral neuropathy -Left foot wound secondary to neuropathy-healed -GERD -Large hiatal hernia -LA grade D distal esophagitis, - large hiatal hernia, -gastric antral vascular ectasia Plan: Overall doing much better. Potassium is being replaced. Hopefully discharge in next 24-48 hours.
[2020-03-15] MEDS: MIRTAZAPINE 15 MG TAB PO SCH (21:24)
[2020-03-16] MEDS: HEPARIN SODIUM,PORCINE 5,000 UNIT/ML 1 ML VIAL SQ SCH ×3 (01:39→15:32)
[2020-03-16] MEDS: DEXTROSE 5%-0.45% NACL 1,000 ML with SODIUM BICARB (1 MEQ/ML) 50 ML IV SCH ×4 (02:15→15:33)
--- NOTE | 2020-03-16 06:32 | P.PN ---
Subjective Progress Note Date: 03/15/20 Principal diagnosis: Decompensated liver cirrhosis, hepatic encephalopathy, nausea and vomiting Patient is seen lying in bed more awake and alert today. He is answering his questions appropriately and tolerating a diet. Objective - Vital Signs Vital signs: Vital Signs Temp 99.5 F 03/15/20 14:42 Pulse 87 03/15/20 14:42 Resp 16 03/15/20 14:42 BP 111/67 03/15/20 14:42 Pulse Ox 92 L 03/15/20 14:42 Intake & Output 03/14/20 03/15/20 03/15/20 18:59 06:59 18:59 Intake Total 540 800 Output Total 400 Balance 540 -400 800 Intake: Intake, IV Titration 800 Amount Dextrose 5%-0.45% NaCl 1, 800 000 ml @ 100 mls/hr IV . [id number] [facility] with Sodium Bicarb (1 Meq/ml) 50 ml Rx#:[id number] Oral 540 Output: Urine 400 Other: Voiding Method Diaper Incontinent # Voids 3 3 # Bowel Movements 1 - Exam On physical examination, patient appears comfortable in no apparent distress. HEAD: Normocephalic, atraumatic. EYES: No scleral icterus. No conjunctival injection. MOUTH: No lesions, tongue midline. NECK: Trachea midline, no gross abnormalities. ABDOMEN: Soft, obese. Bowel sounds are positive. No organomegaly. No guarding or rigidity. EXTREMITIES: No pedal edema. SKIN: No rashes, no jaundice. NEUROLOGIC: Alert and oriented x3. No asterixis noted. No focal deficits. - Labs CBC & Chem 7: 03/15/20 07:52 03/15/20 07:52 Labs: Abnormal Lab Results - Last 24 Hours (Table) 03/15/20 03/15/20 03/15/20 Range/Units 07:52 07:52 07:52 WBC 2.4 L (3.8-10.6) k/uL RBC 2.78 L (4.30-5.90) m/uL Hgb 8.0 L (13.0-17.5) gm/dL Hct 26.3 L (39.0-53.0) % MCHC 30.4 L (31.0-37.0) g/dL RDW 16.4 H (11.5-15.5) % Plt Count 111 L (150-450) k/uL Potassium 2.9 L (3.5-5.1) mmol/L Carbon Dioxide 34 H (22-30) mmol/L BUN 8 L (9-20) mg/dL Creatinine 0.39 L (0.66-1.25) mg/dL Glucose 167 H (74-99) mg/dL Alkaline Phosphatase 133 H (38-126) U/L Ammonia 44 H (<30) umol/L Total Protein 5.8 L (6.3-8.2) g/dL Albumin 2.9 L (3.5-5.0) g/dL Assessment and Plan (1) Intractable nausea and vomiting Narrative/Plan: 49-year-old male with multiple medical comorbidities including decompensated liver disease who was recently hospitalized due to gallstone pancreatitis and is status post cholecystectomy who presented back with nausea and vomiting. Previously the patient had been seen in 11/2019 with intractable nausea and vomiting and was taken for EGD with findings of a hiatal hernia, LA grade D esophagitis and gastric antral vascular ectasia. Unclear etiology of current symptoms with only mild elevation of amylase and lipase. Patient had been noncompliant with medications due to the nausea and vomiting and subsequently had elevated ammonia and encephalopathy. Current Visit: No Status: Acute Code(s): R11.2 - NAUSEA WITH VOMITING, UNSPECIFIED SNOMED Code(s): 876387897 (2) Hepatic encephalopathy Current Visit: Yes Status: Chronic Code(s): K72.90 - HEPATIC FAILURE, UNSPECIFIED WITHOUT COMA SNOMED Code(s): 28611405 (3) Abdominal pain Current Visit: No Status: Acute Code(s): R10.9 - UNSPECIFIED ABDOMINAL PAIN SNOMED Code(s): 93996472 (4) Alcoholic liver disease Current Visit: No Status: Acute Code(s): K70.9 - ALCOHOLIC LIVER DISEASE, UNSPECIFIED SNOMED Code(s): 72416454 (5) Cirrhosis Current Visit: No Status: Acute Code(s): K74.60 - UNSPECIFIED CIRRHOSIS OF LIVER SNOMED Code(s): 86871747 Plan: Supportive care Okay to advance diet to low sodium Protonix 40 mg IV twice a day Carafate 3 times a day before meals and at bedtime Zofran as needed for nausea Continue lactulose increased 4 times daily Xifaxan twice a day Continue other chronic medications Continue to monitor clinically Thank you for allowing us to participate in the care of the patient we will continue to follow
[2020-03-16] MEDS: MODAFINIL 200 MG TAB PO SCH ×2 (07:57→15:33)
[2020-03-16] MEDS: SUCRALFATE 1 GM TAB PO SCH ×3 (07:57→15:34)
[2020-03-16] MEDS: THIAMINE 100 MG TAB PO SCH (07:57)
[2020-03-16] MEDS: SPIRONOLACTONE 25 MG TAB PO SCH ×2 (07:57→22:22)
[2020-03-16] MEDS: LACTULOSE 20 GM/30 ML CUP PO SCH ×4 (07:57→22:23)
[2020-03-16] MEDS: METOCLOPRAMIDE 5 MG/ML 2 ML VIAL IVP PRN (07:58)
[2020-03-16] MEDS: PANTOPRAZOLE 40 MG/10 ML VIAL IVP SCH ×2 (07:58→22:22)
[2020-03-16] MEDS: RIFAXIMIN 550 MG TABLET PO SCH ×3 (07:58→22:23)
[2020-03-16] MEDS: BUPRENORPHINE HCL 8 MG SUBLINGUAL SCH ×3 (07:58→22:23)
[2020-03-16] MEDS: FUROSEMIDE 20 MG TAB PO SCH (07:58)
[2020-03-16] MEDS: PREGABALIN 100 MG CAP PO SCH ×3 (07:58→15:33)
[2020-03-16] MEDS: FOLIC ACID 1 MG TAB PO SCH (07:58)
[2020-03-16] MEDS: ARMODAFINIL 250 MG PO SCH (07:59)
[2020-03-16 08:07] LABS: Anisocytosis Slight; HCT 28.8 % (39.0-53.0); HGB 9.2 gm/dL (13.0-17.5); Hypochromasia Marked; MCH 30.2 pg (25.0-35.0); MCV 94.3 fL (80.0-100.0); Mean Platelet Volume 8.7; Platelet Count 103 k/uL (150-450); RBC 3.05 m/uL (4.30-5.90); RDW 16.2 % (11.5-15.5); WBC 2.7 k/uL (3.8-10.6)
[2020-03-16 11:25] LABS: ALT 9 U/L (4-49); AST 27 U/L (17-59); African American GFR (CKD) >90 (>60 ml/min/1.73 sqM); Albumin 3.2 g/dL (3.5-5.0); Alkaline Phosphatase 142 U/L (38-126); Anion Gap 5 mmol/L; Blood Urea Nitrogen 6 mg/dL (9-20); Calcium 9.1 mg/dL (8.4-10.2); Carbon Dioxide 36 mmol/L (22-30); Chloride 99 mmol/L (98-107); Glucose 196 mg/dL (74-99); Non-African American GFR(CKD) >90 (>60 ml/min/1.73 sqM); Potassium 3.4 mmol/L (3.5-5.1); Sodium 140 mmol/L (137-145); Total Bilirubin 0.4 mg/dL (0.2-1.3); Total Protein 6.4 g/dL (6.3-8.2)
[2020-03-16] MEDS ORDERED: Potassium Replacement Protocol 1 EACH MISC MISCELLANE PRN (11:27)
[2020-03-16] MEDS: POTASSIUM CHLORIDE ER 20 MEQ TAB.ER PO SCH ×3 (11:34→13:54)
--- NOTE | 2020-03-16 14:38 | PN ---
PROGRESS NOTE DATE OF SERVICE: 03/16/2020 Patient is a 49-year-old white male with history of alcoholic cirrhosis of the liver who quit drinking about 5 years ago, history of hypertension, hyperlipidemia, who was hospitalized about 3 weeks ago with acute gallstone pancreatitis and underwent cholecystectomy by Dr. Lerma. He was discharged home and was admitted to the hospital because of fatigue, weakness, abdominal pain, nausea, vomiting, not feeling well and decreased oral intake. Complains of extreme fatigue, weakness, and unable to walk. He denies any abdominal pain. No nausea, vomiting. No fever, chills, or night sweats. PHYSICAL EXAMINATION: He appears comfortable. No apparent distress vital signs stable blood pressure is 134/70, pulse rate 80, temperature 99.2. HEENT examination unremarkable sclerae anicteric oral cavity no lesions. NECK no JVD abdomen chest was clear to auscultation. HEART: Regular rate and rhythm. ABDOMEN: Soft, it was nontender, nondistended. Bowel sounds are positive no organomegaly extremities no pedal edema. NEUROLOGIC: Alert and oriented x3. Extreme weakness improved. LABS: Done today WBC 2.7, hemoglobin 9.2 platelets 103. Ammonia level is 44. AST, ALT, T- bilirubin are normal. Alkaline phosphatase is 142. BUN and creatinine are normal. IMPRESSION: 1. Hepatic encephalopathy, resolved, currently on oral lactulose, doing well. 2. Intractable nausea vomiting resolving, able to tolerate diet well. Last EGD in November of this year showed LA grade D reflux esophagitis. Remains on Protonix 40 mg daily. 3. Generalized weakness. 4. History of alcoholic cirrhosis of the liver. Quit drinking about 5 years ago. RECOMMENDATIONS: 1. Continue with Protonix 40 mg twice daily. 2. Antiemetics as needed. 3. Continue with lactulose and Xifaxan. 4. Encouraged physical therapy. 5. We will follow with you closely. Thank you for this consultation. MMODL / IJN: [id number] /
[2020-03-16 14:56] VITALS: BMI 30.8
--- NOTE | 2020-03-16 18:07 | P.PN ---
Progress Note - Text Progress Note Date: 03/16/20 - Chief Complaint Vomiting Interval history: This is a pleasant 49-year-old patient of Dr. ortiz. Chronic stable medical conditions include alcoholic cirrhosis, portal hypertension, hyperlipidemia, peripheral neuropathy. EGD earlier this year showed a grade D distal esophagitis, large hiatal hernia, gastric antral vascular ectasia and and there was no esophageal varices. Admitted with acute pancreatitis.on February 15 patient started vomiting repeatedly. Had coffee-ground emesis. Became encephalopathic. Moved to the ICU. February 19 underwent open cholecystectomy. Patient went into pulmonary edema with IV fluids. Responded well to IV Lasix. Discharged on February 24. doing well. Tolerating a diet. Now presents with feeling worse for last 3 days. Started vomiting. Very slight abdominal pain if any. No fever no chills. Just tired. Rundown. No diarrhea. Since presentation been having some coffee-ground emesis. Admitted with coffee-ground emesis, hepatic encephalopathy. Put on PPIs. Initially made nothing by mouth. And some clear liquids. Lactulose was increased. Today-diet sitting up in a chair. Concern how his to manage at home. Was to go to rehab. Informed social science manager. Discussed with Dr. Opal Peñaloza from GI. Review of systems: Was done for constitutional, cardiovascular, GI, pulmonary. relevant finding as above Active Medications Folic Acid (Folic Acid) 1 mg PO DAILY [facility] Last Admin: 03/16/20 07:58 Dose: 1 mg Documented by: Furosemide (Lasix) 20 mg PO DAILY [facility] Last Admin: 03/16/20 07:58 Dose: 20 mg Documented by: Heparin Sodium (Porcine) (Heparin) 5,000 unit SQ Q8HR [facility] Last Admin: 03/16/20 15:32 Dose: 5,000 unit Documented by: Sodium Bicarbonate 50 ml/ (Dextrose/Sodium Chloride) 1,050 mls @ 100 mls/hr IV .[id number] [facility] Last Admin: 03/16/20 15:33 Dose: 100 mls/hr Documented by: Lactulose (Cephulac) 30 gm PO QID [facility] Last Admin: 03/16/20 15:34 Dose: 30 gm Documented by: Metoclopramide HCl (Reglan) 5 mg IVP Q6HR PRN PRN Reason: Nausea And Vomiting Last Admin: 03/16/20 07:58 Dose: 5 mg Documented by: Mirtazapine (Remeron) 7.5 mg PO HS [facility] Last Admin: 03/15/20 21:24 Dose: 7.5 mg Documented by: Miscellaneous Information (Potassium Per Protocol) 1 each MISCELLANE DAILY PRN; Protocol PRN Reason: Per Protocol Modafinil (Provigil) 200 mg PO BID@0900,1800 [facility] Last Admin: 03/16/20 15:33 Dose: 200 mg Documented by: Naloxone HCl (Narcan) 0.2 mg IV Q2M PRN PRN Reason: Opioid Reversal Non-Formulary Medication (Armodafinil [Nuvigil]) 250 mg PO DAILY [facility] Last Admin: 03/16/20 07:59 Dose: Not Given Documented by: Patient's Own ( Buprenorphine Hcl [ Subutex] 8 Mg) 8 mg SUBLINGUAL TID [facility] Last Admin: 03/16/20 15:31 Dose: 8 mg Documented by: Pantoprazole Sodium (Protonix) 40 mg IVP BID [facility] Last Admin: 03/16/20 07:58 Dose: 40 mg Documented by: Pregabalin (Lyrica) 200 mg PO AC-TID [facility] Last Admin: 03/16/20 15:33 Dose: 200 mg Documented by: Rifaximin (Xifaxan) 550 mg PO TID [facility] Stop: 04/09/20 16:01 Last Admin: 03/16/20 15:33 Dose: 550 mg Documented by: Spironolactone (Aldactone) 50 mg PO BID [facility] Last Admin: 03/16/20 07:57 Dose: 50 mg Documented by: Sucralfate (Carafate) 1 gm PO AC-TID [facility] Last Admin: 03/16/20 15:34 Dose: 1 gm Documented by: Thiamine HCl (Vitamin B-1) 100 mg PO DAILY [facility] Last Admin: 03/16/20 07:57 Dose: 100 mg Documented by: Physical examination: VITAL SIGNS: 99.1, 86, 18, 117/74, 91% on room air GENERAL: Propped up in chair, a bit tired EYES: Pupils equal. Conjunctiva pale. HEENT: External appearance of nose and ears normal, oral cavity dry. NECK: JVD not raised; masses not palpable. HEART: First and second heart sounds are normal; no edema. LUNGS: Respiratory Rate normal, lungs are clear ABDOMEN: Soft, no tenderness, no guarding or rigidity, liver spleen not palpable, possible hepatomegaly. PSYCH: Answering questions, aortitis 3. INVESTIGATIONS, reviewed in the clinical context: Potassium 3.4 Previous testing White count 5.3 hemoglobin 12.2 platelets 466 potassium 5.2 creatinine 0.76 amylase 223 lipase 682 ammonia 84 bicarb 10. Ammonia 137 Assessment: -coffee-ground emesis suspect upper GI bleed.-Stabilized -Acute metabolic acidosis POA- -acute on chronic hepatic [id number] -Acute GI bleed with coffee-ground emesis-POA -Recent cholecystectomy. 4 gallstones and pancreatitis -Alcoholic cirrhosis -Portal hypertension -Diabetic peripheral neuropathy -Left foot wound secondary to neuropathy-healed -GERD -Large hiatal hernia -LA grade D distal esophagitis, - large hiatal hernia, -gastric antral vascular ectasia Plan: -Discussed with social science manager about placement. Patient's been discharged. Discussed Dr. Opal Peñaloza. Discussed with patient at length. Pending ECF. Total time spent today was about 40 minutes with over 25 minutes in discussion.
[2020-03-16] MEDS: MIRTAZAPINE 15 MG TAB PO SCH (22:23)
[2020-03-17] MEDS: HEPARIN SODIUM,PORCINE 5,000 UNIT/ML 1 ML VIAL SQ SCH ×3 (00:19→16:09)
[2020-03-17] MEDS: DEXTROSE 5%-0.45% NACL 1,000 ML with SODIUM BICARB (1 MEQ/ML) 50 ML IV SCH ×4 (03:01→16:09)
[2020-03-17] MEDS: PREGABALIN 100 MG CAP PO SCH ×3 (07:15→16:10)
[2020-03-17] MEDS: LACTULOSE 20 GM/30 ML CUP PO SCH ×4 (07:15→22:00)
[2020-03-17] MEDS: PANTOPRAZOLE 40 MG/10 ML VIAL IVP SCH (07:15)
[2020-03-17] MEDS: FUROSEMIDE 20 MG TAB PO SCH (07:16)
[2020-03-17] MEDS: THIAMINE 100 MG TAB PO SCH (07:16)
[2020-03-17] MEDS: SUCRALFATE 1 GM TAB PO SCH ×3 (07:16→16:08)
[2020-03-17] MEDS: BUPRENORPHINE HCL 8 MG SUBLINGUAL SCH ×3 (07:16→22:00)
[2020-03-17] MEDS: SPIRONOLACTONE 25 MG TAB PO SCH ×2 (07:16→22:00)
[2020-03-17] MEDS: FOLIC ACID 1 MG TAB PO SCH (07:16)
[2020-03-17] MEDS: RIFAXIMIN 550 MG TABLET PO SCH ×2 (07:16→16:08)
[2020-03-17] MEDS: MODAFINIL 200 MG TAB PO SCH ×2 (07:16→17:46)
[2020-03-17] MEDS: ARMODAFINIL 250 MG PO SCH (07:22)
[2020-03-17 08:21] LABS: Anisocytosis Slight; Basophils % (A) 0 %; Eosinophils # (A) 0.2 k/uL (0-0.7); Eosinophils % (A) 7 %; HCT 30.7 % (39.0-53.0); HGB 9.1 gm/dL (13.0-17.5); Hypochromasia Marked; Lymphocytes # (A) 0.8 k/uL (1.0-4.8); Lymphocytes % (A) 30 %; MCH 28.5 pg (25.0-35.0); MCHC 29.7 g/dL (31.0-37.0); MCV 95.9 fL (80.0-100.0); Mean Platelet Volume 9.2; Monocytes # (A) 0.2 k/uL (0-1.0); Monocytes % (A) 6 %; Neutrophils # (A) 1.4 k/uL (1.3-7.7); Neutrophils % (A) 53 %; Platelet Count 110 k/uL (150-450); RDW 16.7 % (11.5-15.5); WBC 2.6 k/uL (3.8-10.6)
[2020-03-17 08:30] LABS: ALT 9 U/L (4-49); AST 24 U/L (17-59); African American GFR (CKD) >90 (>60 ml/min/1.73 sqM); Albumin 3.3 g/dL (3.5-5.0); Alkaline Phosphatase 160 U/L (38-126); Anion Gap 7 mmol/L; Blood Urea Nitrogen 5 mg/dL (9-20); Calcium 9.1 mg/dL (8.4-10.2); Carbon Dioxide 32 mmol/L (22-30); Chloride 101 mmol/L (98-107); Glucose 160 mg/dL (74-99); Non-African American GFR(CKD) >90 (>60 ml/min/1.73 sqM); Potassium 4.1 mmol/L (3.5-5.1); Sodium 140 mmol/L (137-145); Total Bilirubin 0.5 mg/dL (0.2-1.3); Total Protein 6.7 g/dL (6.3-8.2)
[2020-03-17] MEDS: NICOTINE 21MG/24HR PATCH TRANSDERM SCH (11:11)
--- NOTE | 2020-03-17 14:08 | PN ---
PROGRESS NOTE DATE OF SERVICE: March 17, 2020 Patient is a 49-year-old pleasant white male with history of alcoholic cirrhosis of the liver with portal hypertension, hyperlipidemia, severe reflux esophagitis, admitted to the hospital with nausea, vomiting, not feeling well for the last 2 days duration. He had altered mental status. Admitted with hepatic encephalopathy on oral lactulose and his symptoms are improved. Overall he is feeling better. Today he denies any complaints other than generalized weakness, on a regular diet tolerating well. No abdominal pain. No nausea, no vomiting. PHYSICAL EXAMINATION: He appears comfortable. No apparent distress. Vital signs stable. Blood pressure 108/86, pulse rate 82 per minute and afebrile. HEENT examination unremarkable. Conjunctivae pink. Sclerae anicteric. Oral cavity no lesions. NECK no JVD or lymph node enlargement. CHEST was clear to auscultation. HEART: Regular rate and rhythm. ABDOMEN: Soft. Bowel sounds are positive. No organomegaly. EXTREMITIES: No pedal edema. SKIN no rashes. NEURO: He is alert, oriented x3. LABS: No labs available from today. IMPRESSION: 1. Alcoholic cirrhosis of the liver with portal hypertension, stable. 2. Hepatic encephalopathy, resolved. 3. Patient had cholecystectomy 3 weeks ago for acute gallstone pancreatitis. 4. Generalized weakness. 5. Gastroesophageal reflux disease. RECOMMENDATIONS: 1. Continue current medications. 2. Symptomatic and supportive care. 3. Aggressive physical therapy. 4. Discharge pending placement but patient wants to go home. We will discuss with Dr. Blackman. Thank you for this consultation. MMODL / IJN: [id number] /
--- NOTE | 2020-03-17 19:36 | P.PN ---
Progress Note - Text Progress Note Date: 03/17/20 - Chief Complaint Vomiting Interval history: This is a pleasant 49-year-old patient of Dr. ortiz. Chronic stable medical conditions include alcoholic cirrhosis, portal hypertension, hyperlipidemia, peripheral neuropathy. EGD earlier this year showed a grade D distal esophagitis, large hiatal hernia, gastric antral vascular ectasia and and there was no esophageal varices. Admitted with acute pancreatitis.on February 15 patient started vomiting repeatedly. Had coffee-ground emesis. Became encephalopathic. Moved to the ICU. February 19 underwent open cholecystectomy. Patient went into pulmonary edema with IV fluids. Responded well to IV Lasix. Discharged on February 24. doing well. Tolerating a diet. Now presents with feeling worse for last 3 days. Started vomiting. Very slight abdominal pain if any. No fever no chills. Just tired. Rundown. No diarrhea. Since presentation been having some coffee-ground emesis. Admitted with coffee-ground emesis, hepatic encephalopathy. Put on PPIs. Initially made nothing by mouth. And some clear liquids. Lactulose was increased. Today-up in a chair. Tolerating a diet. Answering questions.. Review of systems: Was done for constitutional, cardiovascular, GI, pulmonary. relevant finding as above Physical examination: VITAL SIGNS: 98.1, 81, 18, 108/66, 94% room air GENERAL: Sitting up in a chair, awake EYES: Pupils equal. Conjunctiva pale. HEENT: External appearance of nose and ears normal, oral cavity dry. NECK: JVD not raised; masses not palpable. HEART: First and second heart sounds are normal; no edema. LUNGS: Respiratory Rate normal, lungs are clear ABDOMEN: Soft, no tenderness, no guarding or rigidity, liver spleen not palpable, possible hepatomegaly. PSYCH: AO - times three. Mood and affect normal INVESTIGATIONS, reviewed in the clinical context: White count 2.6 hemoglobin 9.1 platelets 110 potassium 4.1 crit 0.39 Previous testing White count 5.3 hemoglobin 12.2 platelets 466 potassium 5.2 creatinine 0.76 amylase 223 lipase 682 ammonia 84 bicarb 10. Ammonia 137 Assessment: -coffee-ground emesis suspect upper GI bleed.-Stabilized -Acute metabolic acidosis POA- -acute on chronic hepatic [id number] -Acute GI bleed with coffee-ground emesis-POA -Recent cholecystectomy. 4 gallstones and pancreatitis -Alcoholic cirrhosis -Portal hypertension -Diabetic peripheral neuropathy -Left foot wound secondary to neuropathy-healed -GERD -Large hiatal hernia -LA grade D distal esophagitis, - large hiatal hernia, -gastric antral vascular ectasia -Pancytopenia from cirrhosis Plan: -Discussed with insurance case manager. Authorization not come through. Also needs a physician to approve for Suboxone. For the ECF. Nurse called me that initially the wanted to take the patient home. And then they changed her mind.
[2020-03-17] MEDS: MIRTAZAPINE 15 MG TAB PO SCH (22:00)
[2020-03-17] MEDS: PANTOPRAZOLE 40 MG TABLET PO SCH (22:00)
[2020-03-18] MEDS: HEPARIN SODIUM,PORCINE 5,000 UNIT/ML 1 ML VIAL SQ SCH ×4 (00:04→23:29)
[2020-03-18] MEDS: METOCLOPRAMIDE 5 MG/ML 2 ML VIAL IVP PRN (00:04)
[2020-03-18] MEDS: DEXTROSE 5%-0.45% NACL 1,000 ML with SODIUM BICARB (1 MEQ/ML) 50 ML IV SCH ×6 (01:46→20:46)
[2020-03-18] MEDS: BUPRENORPHINE HCL 8 MG SUBLINGUAL SCH ×3 (07:02→20:46)
[2020-03-18] MEDS: PREGABALIN 100 MG CAP PO SCH ×3 (07:03→16:27)
[2020-03-18] MEDS: LACTULOSE 20 GM/30 ML CUP PO SCH ×4 (07:03→20:45)
[2020-03-18] MEDS: NICOTINE 21MG/24HR PATCH TRANSDERM SCH (07:03)
[2020-03-18] MEDS: SPIRONOLACTONE 25 MG TAB PO SCH ×2 (07:04→20:46)
[2020-03-18] MEDS: MODAFINIL 200 MG TAB PO SCH ×2 (07:04→16:27)
[2020-03-18] MEDS: SUCRALFATE 1 GM TAB PO SCH ×3 (07:04→16:27)
[2020-03-18] MEDS: THIAMINE 100 MG TAB PO SCH (07:05)
[2020-03-18] MEDS: PANTOPRAZOLE 40 MG TABLET PO SCH ×2 (07:05→20:46)
[2020-03-18] MEDS: FUROSEMIDE 20 MG TAB PO SCH (07:05)
[2020-03-18] MEDS: FOLIC ACID 1 MG TAB PO SCH (07:05)
[2020-03-18] MEDS: ARMODAFINIL 250 MG PO SCH (07:42)
[2020-03-18] MEDS ORDERED: LACTATED RINGERS 250 ML IV ONE ×2 (08:00→08:45)
[2020-03-18] MEDS ORDERED: LACTATED RINGERS 1,000 ML IV SCH ×2 (09:00)
--- NOTE | 2020-03-18 15:24 | PN ---
PROGRESS NOTE DATE OF SERVICE: 03/18/2020 The patient is a 49-year-old white male admitted to hospital with fatigue, weakness, nausea, vomiting, not feeling well and history of alcoholic cirrhosis of the liver with gradual decompensation and mild hepatic encephalopathy that resolved. Remains on lactulose daily. He denies any symptoms. Overall he is feeling much better. His appetite has been improving. He feels energy level has been much better and doing well. He is able to walk with help of walker. No abdominal pain. No nausea, vomiting. PHYSICAL EXAMINATION: Appears comfortable. VITAL SIGNS: Stable. Blood pressure 103/67, pulse rate 87, temperature 99.1. HEENT examination unremarkable. Conjunctivae pink. Sclerae anicteric. Oral cavity no lesions. NECK: No JVD or lymph node enlargement. CHEST: Clear to auscultation. HEART: Regular rate and rhythm. ABDOMEN: Soft. Bowel sounds are positive. Nondistended. EXTREMITIES: No pedal edema. NEUROLOGIC: Alert and oriented x3. No focal deficits. LABS: WBC 2.6, hemoglobin 9.1, platelets 110. AST, ALT, T bili are all within normal limits. Alkaline phosphatase is 160. BUN and creatinine normal. IMPRESSION: 1. Alcoholic cirrhosis of the liver with gradual decompensation. 2. Hepatic encephalopathy, resolved. 3. Generalized debility and progressive weakness. RECOMMENDATION: 1. Continue with symptomatic and supportive care. 2. Low-salt diet. 3. Continue current dose of lactulose. 4. Aggressive physical therapy. 5. Discharge planning as per primary service. Thank you for this consultation. MMODL / IJN: [id number] /
[2020-03-18] MEDS: MIRTAZAPINE 15 MG TAB PO SCH (20:46)
--- NOTE | 2020-03-18 21:07 | P.PN ---
Progress Note - Text Progress Note Date: 03/18/20 - Chief Complaint Vomiting Interval history: This is a pleasant 49-year-old patient of Dr. ortiz. Chronic stable medical conditions include alcoholic cirrhosis, portal hypertension, hyperlipidemia, peripheral neuropathy. EGD earlier this year showed a grade D distal esophagitis, large hiatal hernia, gastric antral vascular ectasia and and there was no esophageal varices. Admitted with acute pancreatitis.on February 15 patient started vomiting repeatedly. Had coffee-ground emesis. Became encephalopathic. Moved to the ICU. February 19 underwent open cholecystectomy. Patient went into pulmonary edema with IV fluids. Responded well to IV Lasix. Discharged on February 24. doing well. Tolerating a diet. Now presents with feeling worse for last 3 days. Started vomiting. Very slight abdominal pain if any. No fever no chills. Just tired. Rundown. No diarrhea. Since presentation been having some coffee-ground emesis. Admitted with coffee-ground emesis, hepatic encephalopathy. Put on PPIs. Initially made nothing by mouth. And some clear liquids. Lactulose was increased. Today-up in bed, comfortable. Tolerating a diet. No new issues. Review of systems: Was done for constitutional, cardiovascular, GI, pulmonary. relevant finding as above Active Medications Folic Acid (Folic Acid) 1 mg PO DAILY [facility] Last Admin: 03/18/20 07:05 Dose: 1 mg Documented by: Furosemide (Lasix) 20 mg PO DAILY [facility] Last Admin: 03/18/20 07:05 Dose: 20 mg Documented by: Heparin Sodium (Porcine) (Heparin) 5,000 unit SQ Q8HR [facility] Last Admin: 03/18/20 16:27 Dose: 5,000 unit Documented by: Sodium Bicarbonate 50 ml/ (Dextrose/Sodium Chloride) 1,050 mls @ 100 mls/hr IV .[id number] [facility] Last Admin: 03/18/20 20:46 Dose: 100 mls/hr Documented by: Lactulose (Cephulac) 30 gm PO QID [facility] Last Admin: 03/18/20 20:45 Dose: 30 gm Documented by: Metoclopramide HCl (Reglan) 5 mg IVP Q6HR PRN PRN Reason: Nausea And Vomiting Last Admin: 03/18/20 00:04 Dose: 5 mg Documented by: Mirtazapine (Remeron) 7.5 mg PO HS [facility] Last Admin: 03/18/20 20:46 Dose: 7.5 mg Documented by: Miscellaneous Information (Potassium Per Protocol) 1 each MISCELLANE DAILY PRN; Protocol PRN Reason: Per Protocol Modafinil (Provigil) 200 mg PO BID@0900,1800 [facility] Last Admin: 03/18/20 16:27 Dose: 200 mg Documented by: Naloxone HCl (Narcan) 0.2 mg IV Q2M PRN PRN Reason: Opioid Reversal Nicotine (Habitrol 21mg/24hr Patch) 1 patch TRANSDERM DAILY [facility] Last Admin: 03/18/20 07:03 Dose: 1 patch Documented by: Non-Formulary Medication (Armodafinil [Nuvigil]) 250 mg PO DAILY [facility] Last Admin: 03/18/20 07:42 Dose: Not Given Documented by: Patient's Own ( Buprenorphine Hcl [ Subutex] 8 Mg) 8 mg SUBLINGUAL TID [facility] Last Admin: 03/18/20 20:46 Dose: 8 mg Documented by: Pantoprazole Sodium (Protonix) 40 mg PO BID [facility] Last Admin: 03/18/20 20:46 Dose: 40 mg Documented by: Pregabalin (Lyrica) 200 mg PO AC-TID [facility] Last Admin: 03/18/20 16:27 Dose: 200 mg Documented by: Spironolactone (Aldactone) 50 mg PO BID [facility] Last Admin: 03/18/20 20:46 Dose: 50 mg Documented by: Sucralfate (Carafate) 1 gm PO AC-TID [facility] Last Admin: 03/18/20 16:27 Dose: 1 gm Documented by: Thiamine HCl (Vitamin B-1) 100 mg PO DAILY [facility] Last Admin: 03/18/20 07:05 Dose: 100 mg Documented by: Physical examination: VITAL SIGNS: 99.1, 85, 18, 100/64, 93% on room air GENERAL: Propped up in bed, comfortable EYES: Pupils equal. Conjunctiva pale. HEENT: External appearance of nose and ears normal, oral cavity dry. NECK: JVD not raised; masses not palpable. HEART: First and second heart sounds are normal; no edema. LUNGS: Respiratory Rate normal, lungs are clear ABDOMEN: Soft, no tenderness, no guarding or rigidity, liver spleen not palpable, possible hepatomegaly. PSYCH: AO - times three. Mood and affect normal INVESTIGATIONS, reviewed in the clinical context: White count 2.6 hemoglobin 9.1 platelets 110 potassium 4.1 crit 0.39 Previous testing White count 5.3 hemoglobin 12.2 platelets 466 potassium 5.2 creatinine 0.76 amylase 223 lipase 682 ammonia 84 bicarb 10. Ammonia 137 Assessment: -coffee-ground emesis suspect upper GI bleed.-Stabilized -Acute metabolic acidosis POA- -acute on chronic hepatic [id number] -Acute GI bleed with coffee-ground emesis-POA -Recent cholecystectomy. 4 gallstones and pancreatitis -Alcoholic cirrhosis -Portal hypertension -Diabetic peripheral neuropathy -Left foot wound secondary to neuropathy-healed -GERD -Large hiatal hernia -LA grade D distal esophagitis, - large hiatal hernia, -gastric antral vascular ectasia -Pancytopenia from cirrhosis Plan: -Continue current medication treatment plan. Pending to go down to the ECF.
[2020-03-19] MEDS: FUROSEMIDE 20 MG TAB PO SCH (07:55)
[2020-03-19] MEDS: SPIRONOLACTONE 25 MG TAB PO SCH (07:55)
[2020-03-19] MEDS: PREGABALIN 100 MG CAP PO SCH ×2 (07:55→12:39)
[2020-03-19] MEDS: MODAFINIL 200 MG TAB PO SCH (07:55)
[2020-03-19] MEDS: SUCRALFATE 1 GM TAB PO SCH ×2 (07:56→12:39)
[2020-03-19] MEDS: NICOTINE 21MG/24HR PATCH TRANSDERM SCH (07:56)
[2020-03-19] MEDS: PANTOPRAZOLE 40 MG TABLET PO SCH (07:56)
[2020-03-19] MEDS: THIAMINE 100 MG TAB PO SCH (07:56)
[2020-03-19] MEDS: ARMODAFINIL 250 MG PO SCH (07:56)
[2020-03-19] MEDS: FOLIC ACID 1 MG TAB PO SCH (07:56)
[2020-03-19] MEDS: HEPARIN SODIUM,PORCINE 5,000 UNIT/ML 1 ML VIAL SQ SCH ×2 (07:56→16:32)
[2020-03-19] MEDS: LACTULOSE 20 GM/30 ML CUP PO SCH ×2 (07:57→12:39)
[2020-03-19] MEDS: BUPRENORPHINE HCL 8 MG SUBLINGUAL SCH ×2 (08:14→16:32)
[2020-03-19] MEDS: DEXTROSE 5%-0.45% NACL 1,000 ML with SODIUM BICARB (1 MEQ/ML) 50 ML IV SCH ×2 (09:40)
[2020-03-19 15:23] VITALS: BP 97/62; PULSE 84; RESP 16; TEMP 99.5
--- NOTE | 2020-03-19 19:13 | PN ---
PROGRESS NOTE DATE OF DICTATION: March 19, 2020 Patient is a 49-year-old pleasant white male with alcoholic liver disease and alcoholic cirrhosis of the liver, admitted to the hospital with progressive fatigue, weakness and hepatic encephalopathy. He is doing much better. Currently he is able to walk with the help of a walker, undergoing physical therapy and states that he is ready to go home today. He denies any abdominal pain. He reports no nausea or vomiting. PHYSICAL EXAMINATION: Appears comfortable in no apparent distress. VITAL SIGNS: Stable. Blood pressure is 97/62, pulse 84, temperature 99.9. HEENT examination unremarkable. Conjunctivae pink. Sclerae anicteric. Oral cavity no lesions. NECK no JVD. No lymph node enlargement. CHEST: Clear to auscultation. HEART: Regular rate and rhythm. ABDOMEN: Soft. Bowel sounds are positive. No ascites noted. EXTREMITIES: No pedal edema. NEUROLOGICAL: Alert and oriented x3. Weakness in the lower extremities. LABS: No labs available from today. IMPRESSION: 1. Alcoholic cirrhosis of the liver diagnosed 3 years ago with gradual decompensation. 2. Generalized debility but gradually improving. 3. Hepatic encephalopathy, resolved. 4. Mild thrombocytopenia and anemia secondary to underlying chronic liver disease. RECOMMENDATIONS: 1. Continue with physical therapy. 2. He can be discharged home today. Continue with current dose of diuretics. 3. Continue with lactulose. He was advised to follow up in the office in 2 weeks following discharge from the hospital. Thank you for this consultation. MMODL / PRICILAN: [id number] /
--- NOTE | 2020-03-19 22:33 | P.DS ---
Providers Date of admission: 03/10/20 15:04 Expected date of discharge: 03/19/20 Attending physician: Janes Blackman Consults: 03/10/20 15:05 Consult Physician Routine Consulting Provider: Sonido Weber Consult Reason/Comments: Hepatic encephalopathy Do you want consulting provider notified?: Yes 03/11/20 12:35 Consult Physician Routine Consulting Provider: Luan Lama Consult Reason/Comments: med eval Do you want consulting provider notified?: Yes 03/11/20 12:36 Consult Physician Routine Consulting Provider: Janes Blackman Consult Reason/Comments: med mgmt Do you want consulting provider notified?: Yes [facility] Course: - Chief Complaint Vomiting Interval history: This is a pleasant 49-year-old patient of Dr. randhawa. Chronic stable medical conditions include alcoholic cirrhosis, portal hypertension, hyperlipidemia, peripheral neuropathy. EGD earlier this year showed a grade D distal esophagitis, large hiatal hernia, gastric antral vascular ectasia and and there was no esophageal varices. Admitted with acute pancreatitis.on February 15 patient started vomiting repeatedly. Had coffee-ground emesis. Became encephalopathic. Moved to the ICU. February 19 underwent open cholecystectomy. Patient went into pulmonary edema with IV fluids. Responded well to IV Lasix. Discharged on February 24. doing well. Tolerating a diet. Now presents with feeling worse for last 3 days. Started vomiting. Very slight abdominal pain if any. No fever no chills. Just tired. Rundown. No diarrhea. Since presentation been having some coffee-ground emesis. Admitted with coffee-ground emesis, hepatic encephalopathy. Put on PPIs. Initially made nothing by mouth. And some clear liquids. Lactulose was increased. Today-seen by physical therapy. Did really well with ambulation. It was felt he was "to go home rather than going to rehab. Discussed with the patient. Qu estions were answered. Prescriptions were done. Consultation: Dr. Opal Peñaloza unpartnered from gastroenterology Dr. Lerma from general surgery Dr. Lama from psychiatry Physical examination: VITAL SIGNS: 99.5, 84, 16, 97/62, 95% GENERAL: Propped up in bed, comfortable EYES: Pupils equal. Conjunctiva pale. HEENT: External appearance of nose and ears normal, oral cavity dry. NECK: JVD not raised; masses not palpable. HEART: First and second heart sounds are normal; no edema. LUNGS: Respiratory Rate normal, lungs are clear ABDOMEN: Soft, no tenderness, no guarding or rigidity, liver spleen not palpable, possible hepatomegaly. PSYCH: AO - times three. Mood and affect normal INVESTIGATIONS, reviewed in the clinical context: White count 2.6 hemoglobin 9.1 platelets 110 potassium 4.1 crit 0.39 Previous testing White count 5.3 hemoglobin 12.2 platelets 466 potassium 5.2 creatinine 0.76 amylase 223 lipase 682 ammonia 84 bicarb 10. Ammonia 137 Assessment: -coffee-ground emesis suspect upper GI bleed.-Stabilized -Acute metabolic acidosis POA- -acute on chronic hepatic [id number] -Acute GI bleed with coffee-ground emesis-POA -Recent cholecystectomy. 4 gallstones and pancreatitis -Alcoholic cirrhosis -Portal hypertension -Diabetic peripheral neuropathy -Left foot wound secondary to neuropathy-healed -GERD -Large hiatal hernia -LA grade D distal esophagitis, - large hiatal hernia, -gastric antral vascular ectasia -Pancytopenia from cirrhosis Disposition: Home Patient Condition at Discharge: Stable Plan - Discharge Summary Discharge Rx Participant: No New Discharge Prescriptions: New Lactulose [Cephulac] 30 gm PO QID #1000 ml Nicotine 21Mg/24Hr Patch [Habitrol] 1 each TRANSDERM DAILY #14 patch Mirtazapine [Remeron] 7.5 mg PO HS #30 tab Continue Thiamine [Vitamin B-1] 100 mg PO DAILY #30 tab Modafinil [Provigil] 200 mg PO BID Folic Acid 1 mg PO DAILY Spironolactone [Aldactone] 50 mg PO BID Furosemide [Lasix] 20 mg PO DAILY Buprenorphine HCl [Subutex] 8 mg SL TID Rifaximin [Xifaxan] 550 mg PO TID Pregabalin [Lyrica] 200 mg PO AC-TID Armodafinil [Nuvigil] 250 mg PO DAILY Omeprazole [PriLOSEC] 40 mg PO BID #60 cap Discontinued Lactulose [Constulose] 20 gm PO AC-TID Nortriptyline [Pamelor] 50 mg PO HS Omeprazole [PriLOSEC] 40 mg PO DAILY Discharge Medication List Thiamine [Vitamin B-1] 100 mg PO DAILY #30 tab 11/06/16 [Rx] Folic Acid 1 mg PO DAILY 05/20/18 [History] Modafinil [Provigil] 200 mg PO BID 05/20/18 [History] Buprenorphine HCl [Subutex] 8 mg SL TID 11/21/19 [History] Furosemide [Lasix] 20 mg PO DAILY 11/21/19 [History] Rifaximin [Xifaxan] 550 mg PO TID 11/21/19 [History] Spironolactone [Aldactone] 50 mg PO BID 11/21/19 [History] Armodafinil [Nuvigil] 250 mg PO DAILY 02/14/20 [History] Pregabalin [Lyrica] 200 mg PO AC-TID 02/14/20 [History] Lactulose [Cephulac] 30 gm PO QID #1000 ml 03/19/20 [Rx] Mirtazapine [Remeron] 7.5 mg PO HS #30 tab 03/19/20 [Rx] Nicotine 21Mg/24Hr Patch [Habitrol] 1 each TRANSDERM DAILY #14 patch 03/19/20 [Rx] Omeprazole [PriLOSEC] 40 mg PO BID #60 cap 03/19/20 [Rx] Follow up Appointment(s)/Referral(s): Shakira Esqueda PAC [REFERRING] - 03/28/20 1:45 pm Alexander Randhawa MD [Primary Care Provider] - 03/23/20 9:45 am [facility] Visiting Nurse, [NON-STAFF] - Patient Instructions/Handouts: Gastrointestinal Bleeding (DC), Dehydration (DC), Encephalopathy (DC) Discharge Disposition: HOME WITH HOME HEALTH SERVICES
== END 2020-03-19 17:22 | disposition home health service (06) | DRG 377 ==
LOC: EC 11:53 → 4SSUR 15:04
PROVIDERS: ADMIT Hospitalist; ATTEND Hospitalist
DX: K31.811 Angiodysplasia of stomach and duodenum with bleeding (principal); K72.00 Acute and subacute hepatic failure without coma; E87.2 Acidosis; K76.6 Portal hypertension; D62 Acute posthemorrhagic anemia; F05 Delirium due to known physiological condition; D61.818 Other pancytopenia; E78.5 Hyperlipidemia, unspecified; E86.0 Dehydration; E11.42 Type 2 diabetes mellitus with diabetic polyneuropathy; D69.6 Thrombocytopenia, unspecified; K21.0 Gastro-esophageal reflux disease with esophagitis; R62.7 Adult failure to thrive; K44.9 Diaphragmatic hernia without obstruction or gangrene; K70.30 Alcoholic cirrhosis of liver without ascites; R53.81 Other malaise; K21.9 Gastro-esophageal reflux disease without esophagitis; Z11.59 Encounter for screening for other viral diseases; Z87.01 Personal history of pneumonia (recurrent); Z79.899 Other long term (current) drug therapy; Z90.89 Acquired absence of other organs; Z98.890 Other specified postprocedural states; Z87.891 Personal history of nicotine dependence; Z83.3 Family history of diabetes mellitus; Z81.8 Family history of other mental and behavioral disorders; Z90.49 Acquired absence of other specified parts of digestive tract; Z91.14 Patient's other noncompliance with medication regimen
CPT/HCPCS: 36415; 74019; 80048; 80053; 81001; 82140; 82150; 82550; 83605; 83690; 83735; 84484; 85025; 85027; 93005; 96361; 96374; 96375; 99285

== ENCOUNTER → 2020-04-27 | Outpatient (CLI) | payer BC ==
--- NOTE | 2020-04-27 08:37 | US ---
EXAMINATION TYPE: US liver DATE OF EXAM: 04/27/2020 COMPARISON: 2019 CLINICAL HISTORY: K74.60 CIRRHOSIS OF LIVER. Patient states no symptoms EXAM MEASUREMENTS: Liver Length: 20.7 cm Gallbladder Wall: not seen CBD: 0.5 cm Right Kidney: 10.3 x 5.0 x 4.2 cm Difficult and limited study due to patient body habitus and overlying bowel gas Pancreas: obscured by overlying midline bowel gas Liver: enlarged, attenuating Gallbladder: surgically absent Evidence for sonographic Corral's sign: no CBD: visualized portions wnl, limited by overlying bowel gas Right Kidney: visualized portions wnl, limited by overlying bowel gas IMPRESSION: 1. Excessive bowel gas limits evaluation. Body habitus also limitation 2. Hepatomegaly with moderate fatty dictation of the liver.
== END | disposition home or self-care (01) ==
LOC: RADUSWWP 07:35
PROVIDERS: ATTEND Internal Medicine Gastroenterology
DX: K76.0 Fatty (change of) liver, not elsewhere classified (principal); K74.60 Unspecified cirrhosis of liver
CPT/HCPCS: 76705

== ENCOUNTER 2020-05-18 11:03 | Inpatient (IN) | payer BC ==
--- NOTE | 2020-05-18 11:30 | ED ---
General Adult HPI - General Chief complaint: Weakness Stated complaint: fatigue Time Seen by Provider: 05/18/20 11:11 Source: patient, RN notes reviewed Mode of arrival: wheelchair Limitations: no limitations - History of Present Illness Initial comments: Patient is a pleasant 49-year-old male presenting to the emergency department with fatigue. Onset of symptoms was 2 days ago. Patient states he has no energy to do anything. No cough. No fever. Patient states he does get slightly short of breath with exertion. No chest pain. No abdominal pain. No isolated area of weakness. No confusion or speech problems. - Related Data Home Medications Medication Instructions Recorded Confirmed Folic Acid 1 mg PO DAILY 05/20/18 05/18/20 modafiniL [Provigil] 200 mg PO BID 05/20/18 05/18/20 Furosemide [Lasix] 20 mg PO DAILY 11/21/19 05/18/20 Rifaximin [Xifaxan] 550 mg PO TID 11/21/19 05/18/20 Spironolactone [Aldactone] 50 mg PO BID 11/21/19 05/18/20 Pregabalin [Lyrica] 200 mg PO AC-TID 02/14/20 05/18/20 armodafiniL [Nuvigil] 250 mg PO DAILY 02/14/20 05/18/20 Buprenorphine HCl/Naloxone HCl 1 film SL QID 05/18/20 05/18/20 [Suboxone 8 mg-2 mg Sl Film] Lactulose [Cephulac] 30 gm PO TID 05/18/20 05/18/20 Nicotine 21Mg/24Hr Patch [Habitrol] 1 patch TRANSDERM DAILY 05/18/20 05/18/20 Previous Rx's Medication Instructions Recorded Thiamine [Vitamin B-1] 100 mg PO DAILY #30 tab 11/06/16 Mirtazapine [Remeron] 7.5 mg PO HS #30 tab 03/19/20 Omeprazole [PriLOSEC] 40 mg PO BID #60 cap 03/19/20 Allergies Allergy/AdvReac Type Severity Reaction Status Date / Time No Known Allergies Allergy Verified 05/18/20 12:13 Review of Systems ROS Statement: Those systems with pertinent positive or pertinent negative responses have been documented in the HPI. ROS Other: All systems not noted in ROS Statement are negative. Constitutional: Denies: fever, chills Eyes: Denies: eye pain ENT: Denies: ear pain Respiratory: Reports: as per HPI. Denies: cough Cardiovascular: Reports: dyspnea on exertion. Denies: chest pain, orthopnea Endocrine: Reports: fatigue Gastrointestinal: Denies: abdominal pain Genitourinary: Denies: dysuria Musculoskeletal: Denies: back pain Skin: Denies: rash Neurological: Denies: weakness Past Medical History Past Medical History: GERD/Reflux, Liver Disease, Pneumonia, Skin Disorder Additional Past Medical History / Comment(s): Past ETOH abuse-has not drank since 2016, ascites with numerous paracenteisi, AMS/high amylase/vented, pancreatitis, chronic anemia, hiatal hernia, neuropathy bilateral legs/feet and has sores bilateral feet with L foot casted, chronic back pain. History of Any Multi-Drug Resistant Organisms: None Reported Past Surgical History: Adenoidectomy, Back Surgery, Cholecystectomy, Hernia Repair, Tonsillectomy Additional Past Surgical History / Comment(s): Open heart surgery to remove gla ss from heart (fell into glass on a door), low back surgery, R inguinal hernia repair, EGD, I&D L foot wound Past Anesthesia/Blood Transfusion Reactions: No Reported Reaction Past Psychological History: No Psychological Hx Reported Smoking Status: Never smoker Past Alcohol Use History: Heavy Past Drug Use History: Opiates - Past Family History Father History Unknown: Yes Family Medical History: Dementia Additional Family Medical History / Comment(s): Father is living. Mother Family Medical History: Diabetes Mellitus Additional Family Medical History / Comment(s): Mother is . General Exam Limitations: no limitations General appearance: alert, in no apparent distress Head exam: Present: normocephalic Eye exam: Present: normal appearance, PERRL, EOMI. Absent: nystagmus ENT exam: Present: normal oropharynx Neck exam: Present: normal inspection Respiratory exam: Present: normal lung sounds bilaterally. Absent: chest wall tenderness Cardiovascular Exam: Present: regular rate, normal rhythm Expanded Peripheral pulses: 2+: Dorsalis Pedis (R), Dorsalis Pedis (L) GI/Abdominal exam: Present: soft. Absent: tenderness Extremities exam: Present: normal inspection. Absent: pedal edema, calf tenderness Neurological exam: Present: alert, oriented X3, CN II-XII intact. Absent: motor sensory deficit Expanded Neurological exam: Present: protecting the airway Speech: Present: fluid speech Cranial nerves: EOM's Intact: Normal Sensory exam: Upper Extremity Light Touch: Normal, Lower Extremity Light Touch: Normal Motor strength exam: RUE: 5, LUE: 5, RLE: 5, LLE: 5 Eye Response: (4) open spontaneously Motor Response: (6) obeys commands Verbal Response: (5) oriented Psychiatric exam: Present: normal affect, normal mood Skin exam: Present: normal color Course Vital Signs 05/18/20 11:06 Temperature 97.5 F L Pulse Rate 77 Respiratory 21 Rate Blood Pressure 107/73 O2 Sat by Pulse 97 Oximetry - Reevaluation(s) Reevaluation #1: 05/18/20 14:33 Patient does meet sepsis criteria diagnosed at 1430. Blood culture and lactic acid ordered. IV antibiotics will be ordered. EKG Findings - EKG Comments: EKG Findings:: Normal sinus rhythm 69. LA 192. QRS 112. QT 444. QTC 475. Left axis. Inferior Q waves. No acute ST change. Medical Decision Making - Medical Decision Making Patient reevaluated and updated. Case discussed with Dr. Blackman, who will admit covering for Dr. Stevens. Consult requested for Dr. Grayson will be put in. - Lab Data Result diagrams: 05/18/20 11:40 05/18/20 11:40 Lab Results 05/18/20 05/18/20 05/18/20 Range/Units 11:40 11:40 11:40 WBC 2.7 L (3.8-10.6) k/uL RBC 3.84 L (4.30-5.90) m/uL Hgb 10.6 L (13.0-17.5) gm/dL Hct 34.7 L (39.0-53.0) % MCV 90.4 D (80.0-100.0) fL MCH 27.6 (25.0-35.0) pg MCHC 30.5 L (31.0-37.0) g/dL RDW 15.3 (11.5-15.5) % Plt Count 251 D (150-450) k/uL Neutrophils % 59 % Lymphocytes % 31 % Monocytes % 4 % Eosinophils % 4 % Basophils % 0 % Neutrophils # 1.6 (1.3-7.7) k/uL Lymphocytes # 0.8 L (1.0-4.8) k/uL Monocytes # 0.1 (0-1.0) k/uL Eosinophils # 0.1 (0-0.7) k/uL Basophils # 0.0 (0-0.2) k/uL Hypochromasia Slight PT 10.4 (9.0-12.0) sec INR 1.0 (<1.2) APTT 24.7 (22.0-30.0) sec D-Dimer 1.52 H (<0.60) mg/L FEU Sodium 135 L (137-145) mmol/L Potassium 3.8 (3.5-5.1) mmol/L Chloride 96 L (98-107) mmol/L Carbon Dioxide 25 (22-30) mmol/L Anion Gap 14 mmol/L BUN 11 (9-20) mg/dL Creatinine 0.45 L (0.66-1.25) mg/dL Est GFR (CKD-EPI)AfAm >90 (>60 ml/min/1.73 sqM) Est GFR (CKD-EPI)NonAf >90 (>60 ml/min/1.73 sqM) Glucose 92 (74-99) mg/dL Calcium 9.0 (8.4-10.2) mg/dL Total Bilirubin 0.5 (0.2-1.3) mg/dL AST 28 (17-59) U/L ALT 12 (4-49) U/L Alkaline Phosphatase 138 H (38-126) U/L Creatine Kinase 92 (55-170) U/L Troponin I (0.000-0.034) ng/mL NT-Pro-B Natriuret Pep pg/mL Total Protein 6.5 (6.3-8.2) g/dL Albumin 3.7 (3.5-5.0) g/dL TSH 1.600 (0.465-4.680) mIU/L Free T4 0.96 (0.78-2.19) ng/dL Free T3 pg/mL 4.8 (2.8-5.3) pg/ml Urine Color Urine Appearance (Clear) Urine pH (5.0-8.0) Ur Specific [place] (1.001-1.035) Urine Protein (Negative) Urine Glucose (UA) (Negative) Urine Ketones (Negative) Urine Blood (Negative) Urine Nitrite (Negative) Urine Bilirubin (Negative) Urine Urobilinogen (<2.0) mg/dL Ur Leukocyte Esterase (Negative) 05/18/20 05/18/20 05/18/20 Range/Units 11:40 11:40 14:13 WBC (3.8-10.6) k/uL RBC (4.30-5.90) m/uL Hgb (13.0-17.5) gm/dL Hct (39.0-53.0) % MCV (80.0-100.0) fL MCH (25.0-35.0) pg MCHC (31.0-37.0) g/dL RDW (11.5-15.5) % Plt Count (150-450) k/uL Neutrophils % % Lymphocytes % % Monocytes % % Eosinophils % % Basophils % % Neutrophils # (1.3-7.7) k/uL Lymphocytes # (1.0-4.8) k/uL Monocytes # (0-1.0) k/uL Eosinophils # (0-0.7) k/uL Basophils # (0-0.2) k/uL Hypochromasia PT (9.0-12.0) sec INR (<1.2) APTT (22.0-30.0) sec D-Dimer (<0.60) mg/L FEU Sodium (137-145) mmol/L Potassium (3.5-5.1) mmol/L Chloride (98-107) mmol/L Carbon Dioxide (22-30) mmol/L Anion Gap mmol/L BUN (9-20) mg/dL Creatinine (0.66-1.25) mg/dL Est GFR (CKD-EPI)AfAm (>60 ml/min/1.73 sqM) Est GFR (CKD-EPI)NonAf (>60 ml/min/1.73 sqM) Glucose (74-99) mg/dL Calcium (8.4-10.2) mg/dL Total Bilirubin (0.2-1.3) mg/dL AST (17-59) U/L ALT (4-49) U/L Alkaline Phosphatase (38-126) U/L Creatine Kinase (55-170) U/L Troponin I <0.012 (0.000-0.034) ng/mL NT-Pro-B Natriuret Pep 166 pg/mL Total Protein (6.3-8.2) g/dL Albumin (3.5-5.0) g/dL TSH (0.465-4.680) mIU/L Free T4 (0.78-2.19) ng/dL Free T3 pg/mL (2.8-5.3) pg/ml Urine Color Yellow Urine Appearance Clear (Clear) Urine pH 6.0 (5.0-8.0) Ur Specific [place] 1.048 H (1.001-1.035) Urine Protein Trace H (Negative) Urine Glucose (UA) Negative (Negative) Urine Ketones 4+ H (Negative) Urine Blood Negative (Negative) Urine Nitrite Negative (Negative) Urine Bilirubin Negative (Negative) Urine Urobilinogen <2.0 (<2.0) mg/dL Ur Leukocyte Esterase Negative (Negative) - Radiology Data Radiology results: report reviewed (CT angiogram of the chest shows areas of acute infiltrate bilateral multilobular, correlate for atypical pulmonary i nfection. Surgical clips in the gallbladder with persistent abnormal appearance of gallbladder. Suboptimal study without large central pulmonary embolism. Mild cardiomegaly with left greater than right pleural effusion.), image reviewed (Chest x-ray shows chronic parenchymal changes and cardiomegaly. Small right effusion.) Critical Care Time Critical Care Time: Yes Total Critical Care Time: 32 Disposition Clinical Impression: Multifocal pneumonia, Sepsis Disposition: ADMITTED IP TO THIS HOSP Is patient prescribed a controlled substance at d/c from ED?: No Referrals: Alexander Randhawa MD [Primary Care Provider] - 1-2 days Decision Time: 14:31
[2020-05-18 12:00] LABS: ALT 12 U/L (4-49); AST 28 U/L (17-59); African American GFR (CKD) >90 (>60 ml/min/1.73 sqM); Albumin 3.7 g/dL (3.5-5.0); Alkaline Phosphatase 138 U/L (38-126); Anion Gap 14 mmol/L; Blood Urea Nitrogen 11 mg/dL (9-20); Carbon Dioxide 25 mmol/L (22-30); Chloride 96 mmol/L (98-107); Creatine Kinase 92 U/L (55-170); Glucose 92 mg/dL (74-99); Non-African American GFR(CKD) >90 (>60 ml/min/1.73 sqM); Potassium 3.8 mmol/L (3.5-5.1); Sodium 135 mmol/L (137-145); Total Bilirubin 0.5 mg/dL (0.2-1.3); Total Protein 6.5 g/dL (6.3-8.2)
--- NOTE | 2020-05-18 12:02 | XR ---
EXAMINATION TYPE: XR chest 2V DATE OF EXAM: 05/18/2020 COMPARISON: Chest x-ray February 24, 2020 and older studies. HISTORY: Weakness and difficulty in breathing. TECHNIQUE: Frontal and lateral views of the chest are obtained. FINDINGS: Reticular interstitial changes bilaterally are redemonstrated. There is slightly more promi nent Small right pleural effusion. No new suspicious focal airspace opacity or pneumothorax seen bila terally. The cardiac silhouette size is stable and mildly enlarged. Retrocardiac opacity consistent with moderate size hiatal hernia redemonstrated. The osseous structures are intact. IMPRESSION: Chronic parenchymal changes and cardiomegaly with slightly more prominent small right pl eural effusion. No definitive new suspicious focal infiltrate.
[2020-05-18 12:06] LABS: Partial Thromboplastin Time 24.7 sec (22.0-30.0); Prothrombin Time 10.4 sec (9.0-12.0)
[2020-05-18 12:15] LABS: Basophils % (A) 0 %; Eosinophils # (A) 0.1 k/uL (0-0.7); Eosinophils % (A) 4 %; HCT 34.7 % (39.0-53.0); HGB 10.6 gm/dL (13.0-17.5); Hypochromasia Slight; Lymphocytes # (A) 0.8 k/uL (1.0-4.8); Lymphocytes % (A) 31 %; MCH 27.6 pg (25.0-35.0); MCHC 30.5 g/dL (31.0-37.0); Monocytes # (A) 0.1 k/uL (0-1.0); Monocytes % (A) 4 %; Neutrophils # (A) 1.6 k/uL (1.3-7.7); Neutrophils % (A) 59 %; RBC 3.84 m/uL (4.30-5.90); RDW 15.3 % (11.5-15.5); WBC 2.7 k/uL (3.8-10.6)
[2020-05-18 12:16] LABS: T4, Free (Free Thyroxine) 0.96 ng/dL (0.78-2.19)
[2020-05-18 12:19] LABS: MCV 90.4 fL (80.0-100.0); Platelet Count 251 k/uL (150-450)
[2020-05-18 12:24] LABS: D-Dimer 1.52 mg/L FEU (<0.60)
--- NOTE | 2020-05-18 13:09 | CT ---
EXAMINATION TYPE: CT angio chest DATE OF EXAM: 05/18/2020 COMPARISON: Chest x-ray earlier today. Limited abdominal ultrasound from February 14, 2020. HISTORY: Weakness and fatigue. Elevated D-dimer CT DLP: 512.9 mGycm. Automated Exposure Control for Dose Reduction was Utilized. CONTRAST: CTA scan of the thorax is performed with IV Contrast, patient injected with 100 mL of Isovue 370, pul monary embolism protocol. MIP Images are created on CT scanner and reviewed. FINDINGS: Exam was suboptimal as patient unable to hold breath with artifact degradation mid to lower lungs. LUNGS: There are small to tiny left greater than right pleural effusions present. There is associated compressive atelectasis. Areas of acute infiltrate with nodular consolidation difficult to exclude. Some reticulonodular changes involving the superior aspect bilateral lower lobes also present. No pne umothorax seen bilaterally. There is [id number] peripheral reticulation and fibrosis in the upp er lungs bilaterally. MEDIASTINUM: There is suboptimal study with most dense contrast in the SVC along with near equal cont rast the right and left heart systems with heterogeneity, no central pulmonary embolism, smaller segm ental and subsegmental PE cannot be excluded on this study. There are prominent bilateral hilar lymph nodes. Stable mild cardiomegaly. No Pericardial effusion is seen. Persistent moderate size hiatal hernia. Coronary artery calcification is noted. OTHER: Prominent bilateral subareolar gynecomastia. Surgical clips near gallbladder fossa. Gallbladde r with distended margin is seen inferior to this. Internal density suggests gallbladder sludge. Moder [id number] fat replaced atrophy of the pancreas. Liver diffusely low dense consistent with fatty i nfiltration. Spleen is only partially imaged but enlarged image 117. IMPRESSION: 1. Mild cardiomegaly with small to tiny left greater than right pleural effusions. Correlate for CHF exacerbation. 2. Suboptimal study without large central pulmonary embolism. Smaller segmental and subsegmental PE c annot be excluded on this study. 3. Some mild chronic parenchymal changes with areas of acute infiltrate suspected as there is reticul onodular opacities bilaterally involving the inferior aspect of the upper lobes and the superior aspe ct of the lower lobes. Correlate for atypical pulmonary infections. 4. Surgical clips in the gallbladder fossa uncertain etiology. Persistent abnormal appearance to gall bladder. Correlate clinically. Splenomegaly suspected. Correlate clinically. Fatty infiltration of li seun and/or underlying hepatocellular disease thought present. Correlate clinically. Underlying portal venous hypertension not excluded.
[2020-05-18 14:24] LABS: Appearance,Urine Clear (Clear); Bilirubin,Urine Negative (Negative); Blood,Urine Negative (Negative); Color,Urine Yellow; Glucose,Urine (UA) Negative (Negative); Ketones,Urine 4+ (Negative); Leukocyte Esterase,Urine Negative (Negative); Nitrite,Urine Negative (Negative); Protein,Urine Trace (Negative); Urobilinogen,Urine <2.0 mg/dL (<2.0)
[2020-05-18 14:30] LABS: Specific Gravity,Urine 1.048 (1.001-1.035)
[2020-05-18] MEDS ORDERED: AZITHROMYCIN 500 MG in SODIUM CHLORIDE 0.9% 250 ML IVPB STA (14:35)
[2020-05-18] MEDS ORDERED: PNEUMONIA PROTOCOL UTILIZED 1 EACH MISC PO PRN (14:35)
[2020-05-18] MEDS: SODIUM CHLORIDE 0.9% 1,000 ML IV SCH ×2 (16:18→19:52)
[2020-05-19] MEDS: SODIUM CHLORIDE 0.9% 1,000 ML IV SCH ×2 (05:24→14:39)
--- NOTE | 2020-05-19 07:49 | XR ---
EXAMINATION TYPE: XR chest 2V DATE OF EXAM: 05/19/2020 COMPARISON: 720 TECHNIQUE: PA and lateral views submitted. HISTORY: Cough possible pneumonia FINDINGS: There is a stable-sized the heart which is at the upper limits of normal. Mildly prominent coarsened interstitium. Small right pleural effusion and basilar consolidation stable.. Large hiatal hernia no deonte. IMPRESSION: 1. Stable right basilar consolidation and small effusion with coarsened interstitium correlate for pn eumonia versus mild CHF..
[2020-05-19] MEDS ORDERED: PATIENT'S OWN (Buprenorphine Hcl/Naloxone Hcl [Suboxone 8 Mg-2 Mg Sl Film] 1 FILM) SUBLINGUAL SCH (09:00)
[2020-05-19] MEDS ORDERED: LACTULOSE 20 GM/30 ML CUP PO SCH (09:00)
[2020-05-19] MEDS: PANTOPRAZOLE 40 MG TABLET PO SCH ×2 (09:45→21:01)
[2020-05-19] MEDS: FOLIC ACID 1 MG TAB PO SCH (09:45)
[2020-05-19] MEDS: THIAMINE 100 MG TAB PO SCH (09:45)
[2020-05-19] MEDS: NICOTINE 21MG/24HR PATCH TRANSDERM SCH (09:46)
[2020-05-19] MEDS: SPIRONOLACTONE 25 MG TAB PO SCH ×2 (09:47→21:01)
[2020-05-19] MEDS: FUROSEMIDE 20 MG TAB PO SCH (09:47)
[2020-05-19] MEDS: RIFAXIMIN 550 MG TABLET PO SCH ×3 (09:48→22:03)
[2020-05-19] MEDS: ARMODAFINIL 250 MG PO SCH (09:51)
--- NOTE | 2020-05-19 10:00 | P.CNPUL ---
History of Present Illness Reason for consult: dyspnea, pneumonia Chief complaint: Increased lethargy weakness History of present illness: This is a 49-year-old male with history of ethanol abuse and smoking in the past, not sure if he is still drinking excessively however he claims that he sto p smoking about 2 years ago, he had cholecystectomy 2 months ago but cannot recall exactly reason why it was performed, patient came into the hospital about 2-3 day history of increased weakness fatigue and lethargy, covert testing has been sent but results are not available, patient does have a problem with the recall, review of the home medication indicates patient has been on Provigil Lasix Rifaximin, pain medicine his x-ray was unremarkable however computed tomography scan of the chest revealed bilateral basal atelectasis versus pneumonia small tiny pleural effusion more so on the left side compared to right side, patient d-dimer is high however no pulmonary embolism has been seen, gallb ladder is present even though patient says that it was removed, some sludge however is been present, pancreas show atrophy laboratory data data reveals slight hyponatremia hypokalemia, mild metabolic acidosis, patient is being treated with the broad-spectrum antibiotics overall feeling essentially the same, computed tomography scan of the chest also revealed an large right ventricle along with small pericardial effusion, obtaining an echocardiogram would be helpful. Review of Systems All systems: negative Past Medical History Past Medical History: GERD/Reflux, GI Bleed, Liver Disease, Pneumonia, Skin Disorder Additional Past Medical History / Comment(s): Past ETOH abuse-has not drank s wesly 2015, alcoholic liver cirrhosis/portal htn, hepatic encephalopathy, ascites with numerous paracentesis, AMS/high amylase/vented, pancreatitis, upper GI bleed, gastric antral vascular ectasia, pancytopenia r/t cirrhosis, chronic anemia, hiatal hernia, neuropathy bilateral legs/feet and had past sores bilateral feet, chronic back pain. History of Any Multi-Drug Resistant Organisms: None Reported Past Surgical History: Adenoidectomy, Back Surgery, Cholecystectomy, Hernia Repair, Tonsillectomy Additional Past Surgical History / Comment(s): Open heart surgery to remove glass from heart (fell into glass on a door), low back surgery, R inguinal hernia repair, EGD, I&D L foot wound Past Anesthesia/Blood Transfusion Reactions: No Reported Reaction Smoking Status: Former smoker - Past Family History Father History Unknown: Yes Family Medical History: Dementia Additional Family Medical History / Comment(s): Father is living. Mother Family Medical History: Diabetes Mellitus Additional Family Medical History / Comment(s): Mother is . Medications and Allergies Home Medications Medication Instructions Recorded Confirmed Type Thiamine [Vitamin B-1] 100 mg PO DAILY #30 tab 11/06/16 05/18/20 Rx Folic Acid 1 mg PO DAILY 05/20/18 05/18/20 History modafiniL [Provigil] 200 mg PO BID 05/20/18 05/18/20 History Furosemide [Lasix] 20 mg PO DAILY 11/21/19 05/18/20 History Rifaximin [Xifaxan] 550 mg PO TID 11/21/19 05/18/20 History Spironolactone [Aldactone] 50 mg PO BID 11/21/19 05/18/20 History Pregabalin [Lyrica] 200 mg PO AC-TID 02/14/20 05/18/20 History armodafiniL [Nuvigil] 250 mg PO DAILY 02/14/20 05/18/20 History Mirtazapine [Remeron] 7.5 mg PO HS #30 tab 03/19/20 05/18/20 Rx Omeprazole [PriLOSEC] 40 mg PO BID #60 cap 03/19/20 05/18/20 Rx Buprenorphine HCl/Naloxone HCl 1 film SL QID 05/18/20 05/18/20 History [Suboxone 8 mg-2 mg Sl Film] Lactulose [Cephulac] 30 gm PO TID 05/18/20 05/18/20 History Nicotine 21Mg/24Hr Patch [Habitrol] 1 patch TRANSDERM DAILY 05/18/20 05/18/20 History Allergies Allergy/AdvReac Type Severity Reaction Status Date / Time No Known Allergies Allergy Verified 05/18/20 12:13 Physical Exam Vitals: Vital Signs Temp Pulse Pulse Resp BP BP Pulse Ox 05/19/20 07:00 97.6 F 66 15 96/62 98 05/19/20 04:00 18 05/19/20 01:55 97.9 F 74 122/75 100 05/19/20 00:00 18 05/18/20 19:05 18 05/18/20 19:01 97.7 F 76 126/72 99 05/18/20 16:16 97.6 F 63 18 112/69 99 05/18/20 15:56 97.5 F L 68 18 100/57 99 05/18/20 11:06 97.5 F L 77 21 107/73 97 Intake and Output 05/18/20 05/19/20 05/19/20 22:59 06:59 14:59 Output Total 800 800 Balance -800 -800 Output: Urine 800 800 Other: Voiding Method Urinal Urinal Weight 108.862 kg - Constitutional General appearance: average body habitus, cooperative, disheveled, mild distress - EENT Eyes: EOMI, PERRLA Ears: bilateral: normal - Neck Neck: normal ROM Carotids: bilateral: upstroke normal - Respiratory Respiratory: bilateral: diminished - Cardiovascular Rhythm: regular Heart sounds: normal: S1, S2 - Gastrointestinal General gastrointestinal: distended - Integumentary Integumentary: normal turgor - Neurologic Neurologic: CNII-XII intact - Musculoskeletal Musculoskeletal: gait normal, generalized weakness, strength equal bilaterally - Psychiatric Psychiatric: A&O x's 3, appropriate affect, intact judgment & insight Results - Laboratory Findings CBC and BMP: 05/18/20 11:40 05/18/20 11:40 PT/INR, D-dimer PT 10.4 sec (9.0-12.0) 05/18/20 11:40 INR 1.0 (<1.2) 05/18/20 11:40 D-Dimer 1.52 mg/L FEU (<0.60) H 05/18/20 11:40 Abnormal lab findings: Abnormal Labs 05/18/20 05/18/20 05/18/20 11:40 11:40 11:40 WBC 2.7 L RBC 3.84 L Hgb 10.6 L Hct 34.7 L MCHC 30.5 L Lymphocytes # 0.8 L D-Dimer 1.52 H Sodium 135 L Chloride 96 L Creatinine 0.45 L Alkaline Phosphatase 138 H Ur Specific [place] Urine Protein Urine Ketones 05/18/20 14:13 WBC RBC Hgb Hct MCHC Lymphocytes # D-Dimer Sodium Chloride Creatinine Alkaline Phosphatase Ur Specific [place] 1.048 H Urine Protein Trace H Urine Ketones 4+ H - Diagnostic Findings Chest x-ray: report reviewed, image reviewed CT scan - chest: report reviewed, image reviewed (Finding as noted above) Assessment and Plan Assessment: Generalized weakness and fatigue may very well be alcohol withdrawal Bilateral basal atelectasis Pneumonia cannot be excluded Tiny small pleural effusion Pancreatic atrophy Acalculous cholecystitis History of alcohol consumption and smoking History of the hepatic encephalopathy Plan: We'll continue antibiotics Monitor closely deep breathing exercise incentive spirometry Ordering echocardiogram Repeat labs including inflammatory parameters LFTs as well as pancreatic enzymes Further recommendations pending plan of care as per clinical response of the patient
[2020-05-19] MEDS: ONDANSETRON 4 MG/2 ML VIAL IVP PRN ×2 (10:26→15:46)
[2020-05-19] MEDS: BUPRENORPHINE 8 MG SUBLINGUAL SCH ×4 (10:26→22:01)
[2020-05-19 10:30] LABS: AST 36 U/L (17-59); African American GFR (CKD) >90 (>60 ml/min/1.73 sqM); Albumin 4.2 g/dL (3.5-5.0); Alkaline Phosphatase 148 U/L (38-126); Amylase 270 U/L (30-110); Anion Gap 23 mmol/L; Blood Urea Nitrogen 12 mg/dL (9-20); Calcium 9.2 mg/dL (8.4-10.2); Carbon Dioxide 11 mmol/L (22-30); Chloride 104 mmol/L (98-107); Glucose 67 mg/dL (74-99); Non-African American GFR(CKD) >90 (>60 ml/min/1.73 sqM); Potassium 4.5 mmol/L (3.5-5.1); Sodium 138 mmol/L (137-145); Total Bilirubin 0.4 mg/dL (0.2-1.3); Total Protein 7.4 g/dL (6.3-8.2)
[2020-05-19 10:31] LABS: ALT 14 U/L (4-49); Alcohol <10 mg/dL
[2020-05-19 10:44] LABS: HCT 42.4 % (39.0-53.0); HGB 11.9 gm/dL (13.0-17.5); Hypochromasia Marked; MCH 27.7 pg (25.0-35.0); Mean Platelet Volume 8.2; Platelet Count 309 k/uL (150-450); RBC 4.29 m/uL (4.30-5.90); RDW 14.5 % (11.5-15.5); WBC 4.3 k/uL (3.8-10.6)
[2020-05-19 10:58] LABS: MCV 98.9 fL (80.0-100.0)
[2020-05-19] MEDS: PREGABALIN 100 MG CAP PO SCH ×2 (12:14→15:47)
[2020-05-19] MEDS ORDERED: SCOPOLAMINE 1.5MG/72HR PATCH TRANSDERM STA (13:23)
[2020-05-19] MEDS: LACTULOSE 20 GM/30 ML CUP PO SCH ×3 (14:38→22:02)
[2020-05-19] MEDS: AZITHROMYCIN 500 MG TAB PO SCH (15:46)
[2020-05-19] MEDS ORDERED: HYDROmorphone 0.5 MG/0.5 ML SYRINGE IVP STA (17:12)
[2020-05-19] MEDS: METOCLOPRAMIDE 5 MG/ML 2 ML VIAL IVP SCH (17:22)
[2020-05-19 17:27] LABS: Ferritin 65.4 ng/mL (22.0-322.0)
--- NOTE | 2020-05-19 19:58 | P.HPIM ---
History of Present Illness H&P Date: 05/19/20 Chief Complaint: Lethargic History of presenting complaint: This is a pleasant 49-year-old patient of Dr. ortiz. Chronic stable medical conditions include alcoholic cirrhosis, portal hypertension, hyperlipidemia, peripheral neuropathy. EGD earlier this year showed a grade D distal esophagitis, large hiatal hernia, gastric antral vascular ectasia and and there was no esophageal varices. Patient now presents feeling more tired lethargic. Appetite was good up to 3 da ys ago not going down. Nausea vomiting tired and rundown. On the having 1 bowel movement a day. Had been taking his lactulose. No fever no chills. Review of systems: GEN.: Tired EYES: None HEENT: None NECK: None RESPIRATORY: None CARDIOVASCULAR: None GASTROINTESTINAL: As above GENITOURINARY: None MUSCULOSKELETAL: None LYMPHATICS: None HEMATOLOGICAL: None PSYCHIATRY: None NEUROLOGICAL: Numbness in both the feet Past medical history to include: Alcoholic cirrhosis, portal hypertension, hypoalbuminemia, peripheral neuropathy from alcohol, left foot wound-healed, GERD ascites with multiple paracentesis pancreatitis hiatal hernia chronic low back pain, distal esophagitis, large hiatal hernia, gastric antral vascular ectasia Social history: Lives with his . started smoking in 1996, a pack a day stopped in December 2016. Patient used to do heavy alcohol in the past stopped in September 2016. Previous opiate dependence-now uses Suboxone. Physical examination: VITAL SIGNS: 97.5, 77, 721, 107/73, 97% room air GENERAL: Laying in bed, tired, arousable EYES: Pupils equal. Conjunctiva pale. HEENT: External appearance of nose and ears normal, oral cavity dry. NECK: JVD not raised; masses not palpable. HEART: First and second heart sounds are normal; no edema. LUNGS: Respiratory Rate normal, lungs are clear ABDOMEN: Soft, no tenderness, no guarding or rigidity, liver spleen not palpable, possible hepatomegaly. PSYCH: Lethargic answering occasional questions INVESTIGATIONS, reviewed in the clinical context: White count 4.3 hemoglobin 11.9 platelets 309 potassium 4.5 creatinine 0.57, bicarb 11 Assessment: -Acute hepatic encephalopathy on chronic worsening. -Acute metabolic acidosis POA- -Alcoholic cirrhosis -Portal hypertension -Diabetic peripheral neuropathy -Left foot wound secondary to neuropathy-healed -GERD -Large hiatal hernia -LA grade D distal esophagitis, - large hiatal hernia, -gastric antral vascular ectasia Plan: Patient be put on lactulose 20 g every 4. Neuro checks. Patient having some vomiting. We will try Reglan. GI consultation. Also add 1 amp of bicarbonate to D5.45 at 100 mL an hour. Care was discussed with the at the bedside. Prognosis guarded. Past Medical History Past Medical History: GERD/Reflux, GI Bleed, Liver Disease, Pneumonia, Skin Disorder Additional Past Medical History / Comment(s): Past ETOH abuse-has not drank since 2016, alcoholic liver cirrhosis/portal htn, hepatic encephalopathy, ascites with numerous paracentesis, AMS/high amylase/vented, pancreatitis, upper GI bleed, gastric antral vascular ectasia, pancytopenia r/t cirrhosis, chronic anemia, hiatal hernia, neuropathy bilateral legs/feet and had past sores bilateral feet, chronic back pain. History of Any Multi-Drug Resistant Organisms: None Reported Past Surgical History: Adenoidectomy, Back Surgery, Cholecystectomy, Hernia Re pair, Tonsillectomy Additional Past Surgical History / Comment(s): Open heart surgery to remove glass from heart (fell into glass on a door), low back surgery, R inguinal wesley ia repair, EGD, I&D L foot wound Past Anesthesia/Blood Transfusion Reactions: No Reported Reaction Smoking Status: Former smoker - Past Family History Father History Unknown: Yes Family Medical History: Dementia Additional Family Medical History / Comment(s): Father is living. Mother Family Medical History: Diabetes Mellitus Additional Family Medical History / Comment(s): Mother is . Medications and Allergies Home Medications Medication Instructions Recorded Confirmed Type Thiamine [Vitamin B-1] 100 mg PO DAILY #30 tab 11/06/16 05/18/20 Rx Folic Acid 1 mg PO DAILY 05/20/18 05/18/20 History modafiniL [Provigil] 200 mg PO BID 05/20/18 05/18/20 History Furosemide [Lasix] 20 mg PO DAILY 11/21/19 05/18/20 History Rifaximin [Xifaxan] 550 mg PO TID 11/21/19 05/18/20 History Spironolactone [Aldactone] 50 mg PO BID 11/21/19 05/18/20 History Pregabalin [Lyrica] 200 mg PO AC-TID 02/14/20 05/18/20 History armodafiniL [Nuvigil] 250 mg PO DAILY 02/14/20 05/18/20 History Mirtazapine [Remeron] 7.5 mg PO HS #30 tab 03/19/20 05/18/20 Rx Omeprazole [PriLOSEC] 40 mg PO BID #60 cap 03/19/20 05/18/20 Rx Buprenorphine HCl/Naloxone HCl 1 film SL QID 05/18/20 05/18/20 History [Suboxone 8 mg-2 mg Sl Film] Lactulose [Cephulac] 30 gm PO TID 05/18/20 05/18/20 History Nicotine 21Mg/24Hr Patch [Habitrol] 1 patch TRANSDERM DAILY 05/18/20 05/18/20 History Allergies Allergy/AdvReac Type Severity Reaction Status Date / Time No Known Allergies Allergy Verified 05/18/20 12:13 Physical Exam Vitals: Vital Signs Temp Pulse Pulse Resp BP BP Pulse Ox 05/19/20 09:44 67 106/61 05/19/20 07:00 97.6 F 66 15 96/62 98 05/19/20 04:00 18 05/19/20 01:55 97.9 F 74 122/75 100 05/19/20 00:00 18 05/18/20 19:05 18 05/18/20 19:01 97.7 F 76 126/72 99 05/18/20 16:16 97.6 F 63 18 112/69 99 05/18/20 15:56 97.5 F L 68 18 100/57 99 Intake and Output 05/18/20 05/19/20 05/19/20 22:59 06:59 14:59 Output Total 800 800 Balance -800 -800 Output: Urine 800 800 Other: Voiding Method Urinal Urinal Weight 108.862 kg Results CBC & Chem 7: 05/19/20 09:55 05/19/20 09:55 Labs: Abnormal Lab Results - Last 24 Hours (Table) 05/18/20 05/18/20 05/18/20 Range/Units 11:40 11:40 11:40 WBC 2.7 L (3.8-10.6) k/uL RBC 3.84 L (4.30-5.90) m/uL Hgb 10.6 L (13.0-17.5) gm/dL Hct 34.7 L (39.0-53.0) % MCHC 30.5 L (31.0-37.0) g/dL Lymphocytes # 0.8 L (1.0-4.8) k/uL D-Dimer 1.52 H (<0.60) mg/L FEU Sodium 135 L (137-145) mmol/L Chloride 96 L (98-107) mmol/L Carbon Dioxide (22-30) mmol/L Creatinine 0.45 L (0.66-1.25) mg/dL Glucose (74-99) mg/dL Alkaline Phosphatase 138 H (38-126) U/L Ammonia (<30) umol/L Amylase (30-110) U/L Ur Specific [place] (1.001-1.035) Urine Protein (Negative) Urine Ketones (Negative) 05/18/20 05/19/20 05/19/20 Range/Units 14:13 09:55 09:55 WBC (3.8-10.6) k/uL RBC 4.29 L (4.30-5.90) m/uL Hgb 11.9 L (13.0-17.5) gm/dL Hct (39.0-53.0) % MCHC 28.0 L (31.0-37.0) g/dL Lymphocytes # (1.0-4.8) k/uL D-Dimer (<0.60) mg/L FEU Sodium (137-145) mmol/L Chloride (98-107) mmol/L Carbon Dioxide (22-30) mmol/L Creatinine (0.66-1.25) mg/dL Glucose (74-99) mg/dL Alkaline Phosphatase (38-126) U/L Ammonia 58 H (<30) umol/L Amylase (30-110) U/L Ur Specific [place] 1.048 H (1.001-1.035) Urine Protein Trace H (Negative) Urine Ketones 4+ H (Negative) 05/19/20 Range/Units 09:55 WBC (3.8-10.6) k/uL RBC (4.30-5.90) m/uL Hgb (13.0-17.5) gm/dL Hct (39.0-53.0) % MCHC (31.0-37.0) g/dL Lymphocytes # (1.0-4.8) k/uL D-Dimer (<0.60) mg/L FEU Sodium (137-145) mmol/L Chloride (98-107) mmol/L Carbon Dioxide 11 L (22-30) mmol/L Creatinine 0.57 L (0.66-1.25) mg/dL Glucose 67 L (74-99) mg/dL Alkaline Phosphatase 148 H (38-126) U/L Ammonia (<30) umol/L Amylase 270 H (30-110) U/L Ur Specific [place] (1.001-1.035) Urine Protein (Negative) Urine Ketones (Negative) Thrombosis Risk Factor Assmnt - Choose All That Apply Any of the Below Risk Factors Present?: Yes Each Factor Represents 1 point: Age 41-60 years, Obesity (BMI >25), Sepsis (< 1month), Serious lung disease incl. pneumonia (< 1month) Other Risk Factors: No Other congenital or acquired thrombophilia - If yes, enter type in comment: No Thrombosis Risk Factor Assessment Total Risk Factor Score: 4 Thrombosis Risk Factor Assessment Level: Moderate Risk
[2020-05-19] MEDS: MIRTAZAPINE 15 MG TAB PO SCH (21:01)
[2020-05-19] MEDS: DEXTROSE 5% IN WATER 1,000 ML with SODIUM BICARB (1 MEQ/ML) 50 ML IV SCH (22:02)
[2020-05-20] MEDS: LACTULOSE 20 GM/30 ML CUP PO SCH ×6 (00:43→20:04)
[2020-05-20] MEDS: METOCLOPRAMIDE 5 MG/ML 2 ML VIAL IVP SCH ×4 (00:43→16:59)
[2020-05-20] MEDS: DEXTROSE 5% IN WATER 1,000 ML with SODIUM BICARB (1 MEQ/ML) 50 ML IV SCH ×2 (06:09→17:00)
--- NOTE | 2020-05-20 08:34 | P.PN ---
Subjective Progress Note Date: 05/20/20 Principal diagnosis: Generalized weakness and fatigue may very well be alcohol withdrawal Bilateral basal atelectasis Bilateral basal Pneumonia cannot be excluded Tiny small pleural effusion Pancreatic atrophy Acalculous cholecystitis History of alcohol consumption and smoking History of the hepatic encephalopathy 05/20/2020, patient seen eval examined during rounds labs reviewed medications reviewed care plan discussed with RN at length, patient is awake and alert, patient is off of a oxygen on room air saturating well however is still have ongoing intermittent nausea and has been throwing up, has been on maximal medical therapy for nausea, GI has been consulted, his labs are significant for normal WBC slight anemia is present with hemoglobin of 11.9, : Weight 19 is pending, his the IV active C-reactive protein is 8.4, amylase is 270 elevated, lipase is 47, This is a 49-year-old male with history of ethanol abuse and smoking in the past, not sure if he is still drinking excessively however he claims that he stop smoking about 2 years ago, he had cholecystectomy 2 months ago but cannot recall exactly reason why it was performed, patient came into the hospital about 2-3 day history of increased weakness fatigue and lethargy, covert testing has been sent but results are not available, patient does have a problem with the recall, review of the home medication indicates patient has been on Provigil Lasix Rifaximin, pain medicine his x-ray was unremarkable however computed tomography scan of the chest revealed bilateral basal atelectasis versus pneu monia small tiny pleural effusion more so on the left side compared to right side, patient d-dimer is high however no pulmonary embolism has been seen, gallbladder is present even though patient says that it was removed, some sludge however is been present, pancreas show atrophy laboratory data data reveals slight hyponatremia hypokalemia, mild metabolic acidosis, patient is being treated with the broad-spectrum antibiotics overall feeling essentially the same, computed tomography scan of the chest also revealed an large right ventricle along with small pericardial effusion, obtaining an echocardiogram would be helpful. Objective - Vital Signs Vital signs: Vital Signs Temp 97.4 F L 05/20/20 07:00 Pulse 76 05/20/20 07:00 Resp 16 05/20/20 07:00 BP 119/74 05/20/20 07:00 Pulse Ox 93 L 05/20/20 07:00 Intake & Output 05/19/20 05/20/20 05/20/20 18:59 06:59 18:59 Intake Total 900 Output Total 2500 Balance -1600 Intake: Intake, IV Titration 400 Amount Sodium Chloride 0.9% 1, 400 000 ml @ 130 mls/hr IV . Q7H42M [facility] Rx#:[id number] Oral 500 Output: Urine 2500 Other: Voiding Method Urinal Urinal # Voids 1 2 # Emeses 3 - Exam - Constitutional General appearance: average body habitus, cooperative, disheveled, mild distress - EENT Eyes: EOMI, PERRLA Ears: bilateral: normal - Neck Neck: normal ROM Carotids: bilateral: upstroke normal - Respiratory Respiratory: bilateral: diminished - Cardiovascular Rhythm: regular Heart sounds: normal: S1, S2 - Gastrointestinal General gastrointestinal: distended - Integumentary Integumentary: normal turgor - Neurologic Neurologic: CNII-XII intact - Musculoskeletal Musculoskeletal: gait normal, generalized weakness, strength equal bilaterally - Psychiatric Psychiatric: A&O x's 3, appropriate affect, intact judgment & insight - Labs CBC & Chem 7: 05/19/20 09:55 05/19/20 09:55 Labs: Abnormal Lab Results - Last 24 Hours (Table) 05/19/20 05/19/20 05/19/20 Range/Units 09:55 09:55 09:55 RBC 4.29 L (4.30-5.90) m/uL Hgb 11.9 L (13.0-17.5) gm/dL MCHC 28.0 L (31.0-37.0) g/dL Carbon Dioxide 11 L (22-30) mmol/L Creatinine 0.57 L (0.66-1.25) mg/dL Glucose 67 L (74-99) mg/dL Alkaline Phosphatase 148 H (38-126) U/L Ammonia 58 H (<30) umol/L C-React Prot High Sens 8.430 H (0.000-3.000) mg/L Amylase 270 H (30-110) U/L Assessment and Plan Assessment: Generalized weakness and fatigue may very well be alcohol withdrawal Ongoing nausea and vomiting likely related to pancreatic insufficiency/gastritis or it could be due to a-calculus cholecystitis Bilateral basal atelectasis Bilateral basal Pneumonia Tiny small pleural effusion Pancreatic atrophy Acalculous cholecystitis History of alcohol consumption and smoking History of the hepatic encephalopathy Plan: We'll continue antibiotics Monitor closely deep breathing exercise incentive spirometry May consider HIDA scan echocardiogram Reviewed labs including inflammatory parameters LFTs as well as pancreatic enzymes Further recommendations pending plan of care as per clinical response of the patient Time with Patient: Greater than 30
[2020-05-20] MEDS: PANTOPRAZOLE 40 MG TABLET PO SCH (09:23)
[2020-05-20] MEDS: NICOTINE 21MG/24HR PATCH TRANSDERM SCH (09:23)
[2020-05-20] MEDS: RIFAXIMIN 550 MG TABLET PO SCH ×3 (09:23→21:27)
[2020-05-20] MEDS: SPIRONOLACTONE 25 MG TAB PO SCH ×2 (09:23→20:05)
[2020-05-20] MEDS: ONDANSETRON 4 MG/2 ML VIAL IVP PRN (09:24)
[2020-05-20] MEDS: BUPRENORPHINE 8 MG SUBLINGUAL SCH ×5 (09:24→21:27)
[2020-05-20] MEDS: PREGABALIN 100 MG CAP PO SCH ×3 (09:24→17:01)
[2020-05-20] MEDS: FUROSEMIDE 20 MG TAB PO SCH (09:24)
[2020-05-20] MEDS: THIAMINE 100 MG TAB PO SCH (09:24)
[2020-05-20] MEDS: FOLIC ACID 1 MG TAB PO SCH (09:24)
[2020-05-20] MEDS: ARMODAFINIL 250 MG PO SCH (09:25)
--- NOTE | 2020-05-20 15:58 | P.PN ---
Progress Note - Text Progress Note Date: 05/20/20 Chief Complaint: Lethargic History of presenting complaint: This is a pleasant 49-year-old patient of Dr. ortiz. Chronic stable medical conditions include alcoholic cirrhosis, portal hypertension, hyperlipidemia, peripheral neuropathy. EGD earlier this year showed a grade D distal esophagitis, large hiatal hernia, gastric antral vascular ectasia and and there was no esophageal varices. Patient now presents feeling more tired lethargic. Appetite was good up to 3 days ago not going down. Nausea vomiting tired and rundown. On the having 1 bowel movement a day. Had been taking his lactulose. No fever no chills. Admitted with hepatic encephalopathy, persistent nausea vomiting. Possible pneumonia. Dose of lactulose was increased. Today-patient had been put on IV Reglan. Vomiting a bit better. at the bedside. Somewhat upset because of slow progress of the patient. Pending GI input. Review of systems: Was done for constitutional, cardiovascular, GI, pulmonary. relevant finding as above Active Medications Azithromycin (Zithromax) 500 mg PO Q24H [facility] Last Admin: 05/19/20 15:46 Dose: 500 mg Documented by: Folic Acid (Folic Acid) 1 mg PO DAILY [facility] Last Admin: 05/20/20 09:24 Dose: 1 mg Documented by: Furosemide (Lasix) 20 mg PO DAILY [facility] Last Admin: 05/20/20 09:24 Dose: 20 mg Documented by: Ceftriaxone Sodium 1 gm/ (Sodium Chloride) 50 mls @ 100 mls/hr IVPB Q24H [facility] Stop: 05/22/20 16:01 Last Admin: 05/19/20 15:46 Dose: 100 mls/hr Documented by: Sodium Bicarbonate 50 ml/ (Dextrose/Water) 1,050 mls @ 100 mls/hr IV .[id number] [facility] Last Admin: 05/20/20 06:09 Dose: 100 mls/hr Documented by: Lactulose (Cephulac) 30 gm PO Q4H [facility] Last Admin: 05/20/20 13:15 Dose: 30 gm Documented by: Metoclopramide HCl (Reglan) 10 mg IVP Q6HR [facility] Last Admin: 05/20/20 11:32 Dose: 10 mg Documented by: Mirtazapine (Remeron) 7.5 mg PO HS [facility] Last Admin: 05/19/20 21:01 Dose: 7.5 mg Documented by: Miscellaneous Information (Pneumonia Protocol Utilized) 1 each PO ONCE PRN PRN Reason: Per Protocol Modafinil (Provigil) 200 mg PO BID@0700,1400 [facility] Last Admin: 05/20/20 13:15 Dose: 200 mg Documented by: Nicotine (Habitrol 21mg/24hr Patch) 1 patch TRANSDERM DAILY [facility] Last Admin: 05/20/20 09:23 Dose: 1 patch Documented by: Patient's Own ( Armodafinil [Nuvigil ] 250 Mg) 250 mg PO DAILY [facility] Last Admin: 05/20/20 09:25 Dose: Not Given Documented by: Patients Own Med- Buprenorphine 8mg Tab 1 each SUBLINGUAL QID [facility] Last Admin: 05/20/20 13:15 Dose: 1 each Documented by: Ondansetron HCl (Zofran) 4 mg IVP Q6HR PRN PRN Reason: Nausea And Vomiting Last Admin: 05/20/20 09:24 Dose: 4 mg Documented by: Pantoprazole Sodium (Protonix) 40 mg PO BID [facility] Last Admin: 05/20/20 09:23 Dose: 40 mg Documented by: Pregabalin (Lyrica) 200 mg PO AC-TID [facility] Last Admin: 05/20/20 11:32 Dose: 200 mg Documented by: Rifaximin (Xifaxan) 550 mg PO TID [facility] Stop: 06/18/20 09:01 Last Admin: 05/20/20 09:23 Dose: 550 mg Documented by: Spironolactone (Aldactone) 50 mg PO BID [facility] Last Admin: 05/20/20 09:23 Dose: 50 mg Documented by: Thiamine HCl (Vitamin B-1) 100 mg PO DAILY [facility] Last Admin: 05/20/20 09:24 Dose: 100 mg Documented by: Physical examination: VITAL SIGNS: 97.4, 76, 16, 119/74, 93% room air GENERAL: Laying in bed, tired, EYES: Pupils equal. Conjunctiva pale. HEENT: External appearance of nose and ears normal, oral cavity dry. NECK: JVD not raised; masses not palpable. HEART: First and second heart sounds are normal; no edema. LUNGS: Respiratory Rate normal, lungs are clear ABDOMEN: Soft, no tenderness, no guarding or rigidity, liver spleen not palpable, possible hepatomegaly. PSYCH: Tired but answering questions INVESTIGATIONS, reviewed in the clinical context: White count 4.3 hemoglobin 11.9 platelets 309 potassium 4.5 creatinine 0.57, bicarb 11 Assessment: -Basilar pneumonia suspect [id number] organism -Persistent nausea vomiting with some improvement -Acute hepatic encephalopathy on chronic-improving -Acute metabolic acidosis POA- -Alcoholic cirrhosis -Portal hypertension -Diabetic peripheral neuropathy -Left foot wound secondary to neuropathy-healed -GERD -Large hiatal hernia -LA grade D distal esophagitis, - large hiatal hernia, -gastric antral vascular ectasia Plan: Continue with lactulose. Discussed with the patient and . somewhat upset about the slow progress of the patient. Did inform her that because of cirrhosis and the esophagitis causing the presence of these symptoms . Awaiting GI input.
[2020-05-20] MEDS: AZITHROMYCIN 500 MG TAB PO SCH (17:00)
[2020-05-20] MEDS: MIRTAZAPINE 15 MG TAB PO SCH (20:05)
[2020-05-20] MEDS: PANTOPRAZOLE 40 MG/10 ML VIAL IVP SCH (20:05)
[2020-05-21] MEDS: DEXTROSE 5% IN WATER 1,000 ML with SODIUM BICARB (1 MEQ/ML) 50 ML IV SCH ×2 (00:08→13:04)
[2020-05-21] MEDS: METOCLOPRAMIDE 5 MG/ML 2 ML VIAL IVP SCH ×3 (00:09→11:59)
[2020-05-21] MEDS: LACTULOSE 20 GM/30 ML CUP PO SCH ×4 (01:45→13:23)
--- NOTE | 2020-05-21 07:06 | P.CONS ---
History of Present Illness - Reason for Consult Consult date: 05/20/20 Decompensated cirrhosis, nausea and vomiting Requesting physician: Janes Blackman - Chief Complaint Weak, lethargic - History of Present Illness 49-year-old male with multiple medical comorbidities including alcoholic cirrhosis, portal hypertension, hyperlipidemia, peripheral neuropathy, esophagitis and gallstone pancreatitis status post cholecystectomy who presented to the hospital with complaints of lethargy and feeling tired. Patient reports feeling run down and weak and tired. She does report compliance with all medications including lactulose and rifaximin. Patient had multiple episodes of nausea and vomiting on presentation. Patient has had multiple admissions for similar complaints and is status post cholecystectomy. The patient had EGD performed in evaluation of nausea and vomiting on 11/23/2019 significant for LA grade D esophagitis, large hiatal hernia, and gastric antral vascular ectasia with no varices noted. On current presentation and laboratory evaluation significant for WBC 4.3, hemoglobin 11.9, platelet count 309,000, ammonia 58, total bilirubin 0.4, alkaline phosphatase 148, AST 36 and ALT 14. Review of Systems REVIEW OF SYSTEMS: CONSTITUTIONAL: Denies any fevers, chills, weight change but reports feeling weak and tired. CARDIOVASCULAR: Denies any chest pain, palpitations high or low blood pressures RESPIRATORY: Denies any shortness of breath, hemoptysis or cough. GENITOURINARY: No dysuria or hematuria. MUSCULOSKELETAL: No weakness reported. SKIN: Denies any new rashes or lesions, jaundice or pallor. PSYCHIATRIC: Denies any depression or anxiety. NEUROLOGY: Denies headache, denies any new focal deficits. EARS/NOSE/THROAT: No recent hearing change, congestion, nasal discharge or sore throat. EYES: No pain in eyes, discharge or change in vision. GASTROINTESTINAL: As per HPI. Past Medical History Past Medical History: GERD/Reflux, GI Bleed, Liver Disease, Pneumonia, Skin Disorder Additional Past Medical History / Comment(s): Past ETOH abuse-has not drank since 2016, alcoholic liver cirrhosis/portal htn, hepatic encephalopathy, ascites with numerous paracentesis, AMS/high amylase/vented, pancreatitis, upper GI bleed, gastric antral vascular ectasia, pancytopenia r/t cirrhosis, chronic anemia, hiatal hernia, neuropathy bilateral legs/feet and had past sores bilateral feet, chronic back pain. History of Any Multi-Drug Resistant Organisms: None Reported Past Surgical History: Adenoidectomy, Back Surgery, Cholecystectomy, Hernia Repair, Tonsillectomy Additional Past Surgical History / Comment(s): Open heart surgery to remove glass from heart (fell into glass on a door), low back surgery, R inguinal h ernia repair, EGD, I&D L foot wound Past Anesthesia/Blood Transfusion Reactions: No Reported Reaction Smoking Status: Former smoker - Past Family History Father History Unknown: Yes Family Medical History: Dementia Additional Family Medical History / Comment(s): Father is living. Mother Family Medical History: Diabetes Mellitus Additional Family Medical History / Comment(s): Mother is . Medications and Allergies Home Medications Medication Instructions Recorded Confirmed Type Thiamine [Vitamin B-1] 100 mg PO DAILY #30 tab 11/06/16 05/18/20 Rx Folic Acid 1 mg PO DAILY 05/20/18 05/18/20 History modafiniL [Provigil] 200 mg PO BID 05/20/18 05/18/20 History Furosemide [Lasix] 20 mg PO DAILY 11/21/19 05/18/20 History Rifaximin [Xifaxan] 550 mg PO TID 11/21/19 05/18/20 History Spironolactone [Aldactone] 50 mg PO BID 11/21/19 05/18/20 History Pregabalin [Lyrica] 200 mg PO AC-TID 02/14/20 05/18/20 History armodafiniL [Nuvigil] 250 mg PO DAILY 02/14/20 05/18/20 History Mirtazapine [Remeron] 7.5 mg PO HS #30 tab 03/19/20 05/18/20 Rx Omeprazole [PriLOSEC] 40 mg PO BID #60 cap 03/19/20 05/18/20 Rx Buprenorphine HCl/Naloxone HCl 1 film SL QID 05/18/20 05/18/20 History [Suboxone 8 mg-2 mg Sl Film] Lactulose [Cephulac] 30 gm PO TID 05/18/20 05/18/20 History Nicotine 21Mg/24Hr Patch [Habitrol] 1 patch TRANSDERM DAILY 05/18/20 05/18/20 History Allergies Allergy/AdvReac Type Severity Reaction Status Date / Time No Known Allergies Allergy Verified 05/18/20 12:13 Physical Exam Vitals: Vital Signs Temp Pulse Resp BP Pulse Ox 05/20/20 07:00 97.4 F L 76 16 119/74 93 L 05/20/20 03:36 18 05/20/20 02:28 98.1 F 83 18 118/72 92 L 05/19/20 23:27 18 05/19/20 19:45 18 05/19/20 19:25 98.4 F 78 18 121/76 97 05/19/20 14:29 98.1 F 76 14 102/66 96 Intake and Output 05/19/20 05/20/20 05/20/20 22:59 06:59 14:59 Intake Total 600 300 Output Total 1500 1000 400 Balance -900 -700 -400 Intake: Intake, IV Titration 400 Amount Sodium Chloride 0.9% 1, 400 000 ml @ 130 mls/hr IV . Q7H42M GRISELDA Rx#:[id number] Oral 200 300 Output: Urine 1500 1000 400 Other: Voiding Method Urinal Urinal Urinal # Voids 2 # Emeses 3 On physical examination, patient appears comfortable in no apparent distress. HEAD: Normocephalic, atraumatic. EYES: No scleral icterus. No conjunctival injection. MOUTH: No lesions, tongue midline. NECK: Trachea midline, no gross abnormalities. CHEST: Clear to auscultation with no wheezing or rhonchi appreciated. HEART: Regular rate and rhythm. ABDOMEN: Soft, obese. Bowel sounds are positive. No organomegaly. No guarding or rigidity. EXTREMITIES: No pedal edema. SKIN: No rashes, no jaundice. NEUROLOGIC: Alert and oriented x3, no asterixis noted. No focal deficits. Results CBC & Chem 7: 05/19/20 09:55 05/19/20 09:55 Labs: Abnormal Lab Results - Last 24 Hours (Table) 05/19/20 05/19/20 Range/Units 09:55 09:55 RBC 4.29 L (4.30-5.90) m/uL Hgb 11.9 L (13.0-17.5) gm/dL MCHC 28.0 L (31.0-37.0) g/dL C-React Prot High Sens 8.430 H (0.000-3.000) mg/L Chest x-ray: report reviewed (Stable right basilar consolidation on chest x- ray.) Assessment and Plan (1) Alcoholic cirrhosis of liver with ascites Narrative/Plan: 49-year-old male with a known history of decompensated alcoholic cirrhosis currently abstinent from alcohol use with multiple admissions for ascites and encephalopathy presented back for weakness and lethargy. Patient subsequently developed nausea and vomiting. He's had similar complaints in the past with EGD showing esophagitis, hiatal hernia and gastric antral vascular ectasia earlier in the year. He was found to have elevated ammonia on presentation at 53 and is currently refusing lactulose therapy. Current Visit: No Status: Chronic Code(s): K70.31 - ALCOHOLIC CIRRHOSIS OF LIVER WITH ASCITES SNOMED Code(s): 624671374 (2) H/O ETOH abuse Current Visit: No Status: Chronic Code(s): Z87.898 - PERSONAL HISTORY OF OTHER SPECIFIED CONDITIONS SNOMED Code(s): 703526368 (3) Hepatic encephalopathy Current Visit: No Status: Chronic Code(s): K72.90 - HEPATIC FAILURE, UNSPECIFIED WITHOUT COMA SNOMED Code(s): 29275686 (4) Portal hypertension Current Visit: No Status: Chronic Code(s): K76.6 - PORTAL HYPERTENSION SNOMED Code(s): 43773552 Plan: Supportive care Okay for diet as tolerated, sodium restricted Continue Protonix 40 mg twice a day Carafate 4 times a day before meals and at bedtime added Continue lactulose and rifaximin therapy, extensive discussion with the patient will need for compliance as confusion and lethargy will worsen if he continues to refuse medications Continue monitor CBC, BMP, LFTs Continue antiemetic regimen Continue Lasix and spironolactone Thank you for allowing us to participate in the care of the patient
[2020-05-21 08:25] LABS: ALT 13 U/L (4-49); AST 24 U/L (17-59); African American GFR (CKD) >90 (>60 ml/min/1.73 sqM); Albumin 3.8 g/dL (3.5-5.0); Alkaline Phosphatase 137 U/L (38-126); Anion Gap 7 mmol/L; Blood Urea Nitrogen 11 mg/dL (9-20); Carbon Dioxide 26 mmol/L (22-30); Chloride 107 mmol/L (98-107); Glucose 115 mg/dL (74-99); Non-African American GFR(CKD) >90 (>60 ml/min/1.73 sqM); Potassium 3.9 mmol/L (3.5-5.1); Sodium 140 mmol/L (137-145); Total Bilirubin 0.3 mg/dL (0.2-1.3); Total Protein 6.7 g/dL (6.3-8.2)
[2020-05-21] MEDS: NICOTINE 21MG/24HR PATCH TRANSDERM SCH (08:27)
[2020-05-21] MEDS: PREGABALIN 100 MG CAP PO SCH ×2 (08:28→12:23)
[2020-05-21] MEDS: FUROSEMIDE 20 MG TAB PO SCH (08:28)
[2020-05-21] MEDS: FOLIC ACID 1 MG TAB PO SCH (08:28)
[2020-05-21] MEDS: RIFAXIMIN 550 MG TABLET PO SCH ×2 (08:28→15:55)
[2020-05-21] MEDS: PANTOPRAZOLE 40 MG/10 ML VIAL IVP SCH (08:28)
[2020-05-21] MEDS: SPIRONOLACTONE 25 MG TAB PO SCH (08:29)
[2020-05-21] MEDS: THIAMINE 100 MG TAB PO SCH (08:29)
[2020-05-21] MEDS: ARMODAFINIL 250 MG PO SCH (08:29)
[2020-05-21 08:38] LABS: HCT 35.2 % (39.0-53.0); Hypochromasia Marked; MCHC 31.3 g/dL (31.0-37.0); Mean Platelet Volume 8.3; Platelet Count 209 k/uL (150-450); RBC 3.93 m/uL (4.30-5.90); RDW 15.4 % (11.5-15.5); WBC 3.9 k/uL (3.8-10.6)
[2020-05-21 08:45] LABS: MCV 89.4 fL (80.0-100.0)
[2020-05-21] MEDS: SUCRALFATE 1 GM TAB PO SCH ×2 (08:57→12:23)
[2020-05-21] MEDS: BUPRENORPHINE 8 MG SUBLINGUAL SCH ×2 (08:57→13:23)
--- NOTE | 2020-05-21 10:01 | P.DS ---
Providers Date of admission: 05/18/20 14:35 Attending physician: Prince Jernigan MD Consults: 05/18/20 14:35 Consult Physician Routine Consulting Provider: Shane Grayson Consult Reason/Comments: Multifocal pneumonia, sepsis Do you want consulting provider notified?: Yes 05/19/20 17:10 Consult Physician Routine Consulting Provider: Sonido Weber Consult Reason/Comments: PERSISTANT VOMITTING Do you want consulting provider notified?: Yes Primary care physician: Alexander Germain [facility] Course: 49-year-old with past medical history of alcoholic cirrhosis, grade D esophagitis, hepatic encephalopathy presenting with episode of confusion and weakness after noncompliance with lactulose. Patient's hospitalization course was complicated by the fact that he wasn't using his lactulose appropriately and was refusing here as well, however, after discussion with his and GI physician, patient did start to take lactulose again. With the compliance to lactulose, his ammonia level went from 58 to 26. His mentation significantly improved back to his baseline. Patient was also noted to have a basilar pneumonia on chest x-ray as well as an anion gap metabolic acidosis, treated with antibiotics and bicarb drip. On discharge, patient was advised to continue his lactulose, was counseled as well. Prescription for nicotine patch and additional four-day course of levofloxacin was sent to the pharmacy. I did confirm that the patient had a stock of lactulose at home. Patient was advised to follow-up with his primary care physician in the next 1-2 days. Patient Condition at Discharge: Stable Plan - Discharge Summary Discharge Rx Participant: No New Discharge Prescriptions: New levoFLOXacin 750 mg PO DAILY 3 Days #4 tab Continue Thiamine [Vitamin B-1] 100 mg PO DAILY #30 tab modafiniL [Provigil] 200 mg PO BID Folic Acid 1 mg PO DAILY Spironolactone [Aldactone] 50 mg PO BID Furosemide [Lasix] 20 mg PO DAILY Rifaximin [Xifaxan] 550 mg PO TID Pregabalin [Lyrica] 200 mg PO AC-TID armodafiniL [Nuvigil] 250 mg PO DAILY Mirtazapine [Remeron] 7.5 mg PO HS #30 tab Omeprazole [PriLOSEC] 40 mg PO BID #60 cap Buprenorphine HCl/Naloxone HCl [Suboxone 8 mg-2 mg Sl Film] 1 film SL QID Lactulose [Cephulac] 30 gm PO TID Nicotine 21Mg/24Hr Patch [Habitrol] 1 patch TRANSDERM DAILY #30 patch Discharge Medication List Thiamine [Vitamin B-1] 100 mg PO DAILY #30 tab 11/06/16 [Rx] Folic Acid 1 mg PO DAILY 05/20/18 [History] modafiniL [Provigil] 200 mg PO BID 05/20/18 [History] Furosemide [Lasix] 20 mg PO DAILY 11/21/19 [History] Rifaximin [Xifaxan] 550 mg PO TID 11/21/19 [History] Spironolactone [Aldactone] 50 mg PO BID 11/21/19 [History] Pregabalin [Lyrica] 200 mg PO AC-TID 02/14/20 [History] armodafiniL [Nuvigil] 250 mg PO DAILY 02/14/20 [History] Mirtazapine [Remeron] 7.5 mg PO HS #30 tab 03/19/20 [Rx] Omeprazole [PriLOSEC] 40 mg PO BID #60 cap 03/19/20 [Rx] Buprenorphine HCl/Naloxone HCl [Suboxone 8 mg-2 mg Sl Film] 1 film SL QID 05/18/20 [History] Lactulose [Cephulac] 30 gm PO TID 05/18/20 [History] Nicotine 21Mg/24Hr Patch [Habitrol] 1 patch TRANSDERM DAILY #30 patch 05/21/20 [Rx] levoFLOXacin 750 mg PO DAILY 3 Days #4 tab 05/21/20 [Rx] Follow up Appointment(s)/Referral(s): Alexander Randhawa MD [Primary Care Provider] - 1-2 days Discharge Disposition: HOME SELF-CARE
--- NOTE | 2020-05-21 10:44 | P.PN ---
Subjective Progress Note Date: 05/21/20 Principal diagnosis: Generalized weakness and fatigue may very well be alcohol withdrawal Bilateral basal atelectasis Bilateral basal Pneumonia cannot be excluded Tiny small pleural effusion Pancreatic atrophy Acalculous cholecystitis History of alcohol consumption and smoking History of the hepatic encephalopathy 05/21/2020, patient seen eval examined during the rounds and labs reviewed medications reviewed, patient sitting upright in the chair breathing comfortably denies any chest pain nausea vomiting has improved, patient is back on lactulose ammonia level is down now, patient can be discharged from pulmonary standpoint oral antibiotics follow up as outpatient 05/20/2020, patient seen eval examined during rounds labs reviewed medications reviewed care plan discussed with RN at length, patient is awake and alert, patient is off of a oxygen on room air saturating well however is still have ongoing intermittent nausea and has been throwing up, has been on maximal medical therapy for nausea, GI has been consulted, his labs are significant for normal WBC slight anemia is present with hemoglobin of 11.9, : Weight 19 is pending, his the IV active C-reactive protein is 8.4, amylase is 270 elevated, lipase is 47, This is a 49-year-old male with history of ethanol abuse and smoking in the past, not sure if he is still drinking excessively however he claims that he stop smoking about 2 years ago, he had cholecystectomy 2 months ago but cannot recall exactly reason why it was performed, patient came into the hospital about 2-3 day history of increased weakness fatigue and lethargy, covert testing has been sent but results are not available, patient does have a problem with the recall, review of the home medication indicates patient has been on Provigil Lasix Rifaximin, pain medicine his x-ray was unremarkable however computed tomography scan of the chest revealed bilateral basal atelectasis versus pneumonia small tiny pleural effusion more so on the left side compared to right side, patient d-dimer is high however no pulmonary embolism has been seen, gallbladder is present even though patient says that it was removed, some sludge however is been present, pancreas show atrophy laboratory data data reveals slight hyponatremia hypokalemia, mild metabolic acidosis, patient is being treated with the broad-spectrum antibiotics overall feeling essentially the same, computed tomography scan of the chest also revealed an large right ventricle along with small pericardial effusion, obtaining an echocardiogram would be helpful. Objective - Vital Signs Vital signs: Vital Signs Temp 98.7 F 05/21/20 07:00 Pulse 84 05/21/20 07:00 Resp 16 05/21/20 07:00 BP 106/61 05/21/20 07:00 Pulse Ox 95 05/21/20 07:00 Intake & Output 05/20/20 05/21/20 05/21/20 18:59 06:59 18:59 Intake Total 1140 Output Total 900 1900 Balance -900 -760 Intake: Intake, IV Titration 600 Amount Dextrose 5% in Water 1, 600 000 ml @ 50 mls/hr IV . Q21H GRISELDA with Sodium Bicarb (1 Meq/ml) 50 ml Rx#:[id number] Oral 540 Output: Urine 900 1900 Other: Voiding Method Urinal Urinal Toilet Urinal # Voids 1 # Bowel Movements 1 # Emeses 1 - Exam - Constitutional General appearance: average body habitus, cooperative, disheveled, mild distress - EENT Eyes: EOMI, PERRLA Ears: bilateral: normal - Neck Neck: normal ROM Carotids: bilateral: upstroke normal - Respiratory Respiratory: bilateral: diminished - Cardiovascular Rhythm: regular Heart sounds: normal: S1, S2 - Gastrointestinal General gastrointestinal: distended - Integumentary Integumentary: normal turgor - Neurologic Neurologic: CNII-XII intact - Musculoskeletal Musculoskeletal: gait normal, generalized weakness, strength equal bilaterally - Psychiatric Psychiatric: A&O x's 3, appropriate affect, intact judgment & insight - Labs CBC & Chem 7: 05/21/20 07:45 05/21/20 07:45 Labs: Abnormal Lab Results - Last 24 Hours (Table) 05/21/20 05/21/20 Range/Units 07:45 07:45 RBC 3.93 L (4.30-5.90) m/uL Hgb 11.0 L (13.0-17.5) gm/dL Hct 35.2 L (39.0-53.0) % Creatinine 0.56 L (0.66-1.25) mg/dL Glucose 115 H (74-99) mg/dL Alkaline Phosphatase 137 H (38-126) U/L Assessment and Plan Assessment: Generalized weakness and fatigue may very well be alcohol withdrawal Ongoing nausea and vomiting likely related to pancreatic insufficiency/gastritis or it could be due to a-calculus cholecystitis Bilateral basal atelectasis Bilateral basal Pneumonia Tiny small pleural effusion Pancreatic atrophy Acalculous cholecystitis History of alcohol consumption and smoking History of the hepatic encephalopathy Plan: Agree with discharge planning We'll continue antibiotics however antibiotics can be changed to oral Follow-up in outpatient setting Monitor closely deep breathing exercise incentive spirometry Time with Patient: Greater than 30
--- NOTE | 2020-05-21 11:05 | ECHOF ---
Referral Reason:pulmnary hypertension MEASUREMENTS -------- HEIGHT: 195.6 cm WEIGHT: 108.9 kg BP: 126/79 RVIDd: 3.9 cm (< 3.3) IVSd: 1.4 cm (0.6 - 1.1) LVIDd: 3.6 cm (3.9 - 5.3) LVPWd: 1.4 cm (0.6 - 1.1) IVSs: 2.0 cm LVIDs: 2.1 cm LVPWs: 1.8 cm LAESV Index (A-L): 30.10 ml/m Ao Diam: 3.7 cm (2.0 - 3.7) AV Cusp: 2.2 cm (1.5 - 2.6) MV EXCURSION: 19.315 mm (> 18.000) MV EF SLOPE: 73 mm/s (70 - 150) EPSS: 0.5 cm MV E Connor: 0.61 m/s MV DecT: 346 ms MV A Connor: 0.72 m/s MV E/A Ratio: 0.84 RAP: 5.00 mmHg RVSP: 35.47 mmHg FINDINGS -------- Sinus rhythm. This was a technically difficult study with suboptimal apical views. The left ventricular size is normal. There is moderate concentric left ventricular hypertrophy. O verall left ventricular systolic function is normal with, an EF between 55 - 60 %. The diastolic fi lling pattern is normal for the age of the patient {E/E'}. The right ventricle is moderately enlarged. LA is midly dilated 29-33ml/m2. The right atrium was not well visualized. 5.0mg of Lumason was utilized for enhancement of images Interatrial and interventricular septum intact. There is no evidence of aortic regurgitation. There is no evidence of aortic stenosis. Mild mitral regurgitation is present. Mild tricuspid regurgitation present. There is mild pulmonary hypertension. The right ventricular systolic pressure, as measured by Doppler, is 35.47mmHg. There is no pulmonic regurgitation present. The aortic root size is normal. IVC Not well visulized. There is no pericardial effusion. CONCLUSIONS -------- 1. The left ventricular size is normal. 2. There is moderate concentric left ventricular hypertrophy. 3. Overall left ventricular systolic function is normal with, an EF between 55 - 60 %. 4. The diastolic filling pattern is normal for the age of the patient {E/E'} 5. The right ventricle is moderately enlarged. 6. LA is midly dilated 29-33ml/m2. 7. Mild mitral regurgitation is present. 8. Mild tricuspid regurgitation present. 9. There is mild pulmonary hypertension. 10. The right ventricular systolic pressure, as measured by Doppler, is 35.47mmHg. MECHANICAL MAINTENANCE: Toya Alvarado RDCS
[2020-05-21 14:11] VITALS: BP 125/76; PULSE 72; RESP 17; TEMP 97.9
[2020-05-21 15:17] LABS: Urine Alcohol Negative (Negative); Urine Barbiturate Negative (Negative); Urine Cocaine Negative (Negative); Urine Methadone Negative (Negative); Urine Opiates Negative (Negative); Urine Phencyclidine Negative (Negative)
[2020-05-21] MEDS: AZITHROMYCIN 500 MG TAB PO SCH (15:55)
== END 2020-05-21 16:20 | disposition home or self-care (01) | DRG 432 ==
LOC: EC 11:03 → 4SSUR 14:35
PROVIDERS: ADMIT Family Medicine; ATTEND Family Medicine
DX: K70.31 Alcoholic cirrhosis of liver with ascites (principal); J18.9 Pneumonia, unspecified organism; K76.6 Portal hypertension; K91.89 Other postprocedural complications and disorders of digestive system; F11.20 Opioid dependence, uncomplicated; J98.11 Atelectasis; E87.2 Acidosis; E87.1 Hypo-osmolality and hyponatremia; K70.40 Alcoholic hepatic failure without coma; Z90.49 Acquired absence of other specified parts of digestive tract; K29.70 Gastritis, unspecified, without bleeding; K86.89 Other specified diseases of pancreas; K31.819 Angiodysplasia of stomach and duodenum without bleeding; K44.9 Diaphragmatic hernia without obstruction or gangrene; T47.3X6A Underdosing of saline and osmotic laxatives, initial encounter; Z91.128 Patient's intentional underdosing of medication regimen for other reason; E11.42 Type 2 diabetes mellitus with diabetic polyneuropathy; Z87.891 Personal history of nicotine dependence; E78.5 Hyperlipidemia, unspecified; Z20.828 Contact with and (suspected) exposure to other viral communicable diseases; G89.29 Other chronic pain; M54.9 Dorsalgia, unspecified; Z87.01 Personal history of pneumonia (recurrent); F10.11 Alcohol abuse, in remission; K20.8 Other esophagitis; Z87.19 Personal history of other diseases of the digestive system; Z79.899 Other long term (current) drug therapy; Z83.3 Family history of diabetes mellitus; Z91.19 Patient's noncompliance with other medical treatment and regimen; G62.1 Alcoholic polyneuropathy
CPT/HCPCS: 36415; 71046; 71275; 80053; 80306; 80320; 81003; 82140; 82150; 82550; 82728; 83690; 83880; 84145; 84439; 84443; 84481; 84484; 85025; 85027; 85379; 85610; 85730; 86141; 93306; 99291

== ENCOUNTER → 2020-09-17 | Outpatient (CLI) | payer BC ==
[2020-09-17 11:51] LABS: HCT 42.6 % (39.0-53.0); HGB 13.1 gm/dL (13.0-17.5); Hypochromasia Moderate; MCH 27.1 pg (25.0-35.0); MCHC 30.7 g/dL (31.0-37.0); MCV 88.1 fL (80.0-100.0); Mean Platelet Volume 9.5; Platelet Count 210 k/uL (150-450); RBC 4.83 m/uL (4.30-5.90); RDW 15.8 % (11.5-15.5); WBC 7.2 k/uL (3.8-10.6)
[2020-09-17 18:49] LABS: INR 0.95 (0.90-1.11); Prothrombin Time 10.3 sec (9.9-11.9)
[2020-09-17 19:21] LABS: African American GFR (CKD) 99.8 (60.0-200.0); Albumin 4.9 g/dL (3.80-4.90); Albumin/Globulin Ratio 1.75 (1.60-3.17); Anion Gap 12.5 mmol/L (4.00-12.00); Carbon Dioxide 30.5 mmol/L (21.6-31.8); Globulin 2.8 g/dL (1.6-3.3); Non-African American GFR(CKD) 86.2 (60.0-200.0); Potassium 5.1 mmol/L (3.5-5.5); Total Bilirubin 0.3 mg/dL (0.2-1.2); Total Protein 7.7 g/dL (6.2-8.2)
== END | disposition home or self-care (01) ==
LOC: LABWHC1 10:38
PROVIDERS: ATTEND Physician Assistant
DX: K70.31 Alcoholic cirrhosis of liver with ascites (principal)
CPT/HCPCS: 36415; 80053; 82105; 85027; 85610

== ENCOUNTER 2021-01-05 04:18 | Observation (INO) | payer BC ==
[2021-01-05 04:32] LABS: Glucose,Whole Blood >600 mg/dL (75-99)
[2021-01-05] MEDS ORDERED: INSULIN REGULAR 100 UNIT/ML VIAL IV STA (04:34)
[2021-01-05] MEDS ORDERED: SODIUM CHLORIDE 0.9% 1,000 ML IV ONE ×2 (04:34)
--- NOTE | 2021-01-05 04:54 | ED ---
General Adult HPI - General Chief complaint: Recheck/Abnormal Lab/Rx Stated complaint: Excessive thirst Time Seen by Provider: 01/05/21 04:32 Source: patient Mode of arrival: ambulatory Limitations: no limitations - History of Present Illness Initial comments: This patient is a 50-year-old man who presents to be evaluated for approximately one week of polyuria and polydipsia. Patient states that things were getting so bad that he had actually lost control of his urination once yesterday. Patient states that to try quench his thirst he had been drinking a lot of soda, which she states only increased his thirst. Patient denies fever or chills. No pains. No dyspnea Onset/Timin -: week(s) Severity scale (1-10): 0 Consistency: constant Improves with: none Worsens with: none Associated Symptoms: denies other symptoms Treatments Prior to Arrival: none - Related Data Home Medications Medication Instructions Recorded Confirmed Folic Acid 1 mg PO DAILY 05/20/18 05/21/20 modafiniL [Provigil] 200 mg PO BID 05/20/18 05/21/20 Furosemide [Lasix] 20 mg PO DAILY 11/21/19 05/21/20 Rifaximin [Xifaxan] 550 mg PO TID 11/21/19 05/21/20 Spironolactone [Aldactone] 50 mg PO BID 11/21/19 05/21/20 Pregabalin [Lyrica] 200 mg PO AC-TID 02/14/20 05/21/20 armodafiniL [Nuvigil] 250 mg PO DAILY 02/14/20 05/21/20 Buprenorphine HCl/Naloxone HCl 1 film SL QID 05/18/20 05/21/20 [Suboxone 8 mg-2 mg Sl Film] Lactulose [Cephulac] 30 gm PO TID 05/18/20 05/21/20 Previous Rx's Medication Instructions Recorded Thiamine [Vitamin B-1] 100 mg PO DAILY #30 tab 11/06/16 Mirtazapine [Remeron] 7.5 mg PO HS #30 tab 03/19/20 Omeprazole [PriLOSEC] 40 mg PO BID #60 cap 03/19/20 Nicotine 21Mg/24Hr Patch [Habitrol] 1 patch TRANSDERM DAILY #30 patch 05/21/20 levoFLOXacin 750 mg PO DAILY 3 Days #4 tab 05/21/20 Allergies Allergy/AdvReac Type Severity Reaction Status Date / Time No Known Allergies Allergy Verified 01/05/21 04:24 Review of Systems ROS Statement: Those systems with pertinent positive or pertinent negative responses have been documented in the HPI. ROS Other: All systems not noted in ROS Statement are negative. Constitutional: Denies: fever, chills, weakness Eyes: Denies: vision change Respiratory: Denies: cough, dyspnea Cardiovascular: Denies: chest pain, palpitations, edema, syncope Endocrine: Reports: polydipsia, polyuria Gastrointestinal: Denies: abdominal pain, nausea, vomiting, diarrhea Genitourinary: Denies: dysuria, hematuria Skin: Denies: rash Neurological: Denies: headache, weakness, numbness Past Medical History Past Medical History: GERD/Reflux, GI Bleed, Liver Disease, Pneumonia, Skin Disorder Additional Past Medical History / Comment(s): Past ETOH abuse-has not drank since 2016, alcoholic liver cirrhosis/portal htn, hepatic encephalopathy, ascites with numerous paracentesis, AMS/high amylase/vented, pancreatitis, upper GI bleed, gastric antral vascular ectasia, pancytopenia r/t cirrhosis, chronic anemia, hiatal hernia, neuropathy bilateral legs/feet and had past sores bilateral feet, chronic back pain. History of Any Multi-Drug Resistant Organisms: None Reported Past Surgical History: Adenoidectomy, Back Surgery, Cholecystectomy, Hernia Repair, Tonsillectomy Additional Past Surgical History / Comment(s): Open heart surgery to remove glass from heart (fell into glass on a door), low back surgery, R inguinal hernia repair, EGD, I&D L foot wound Past Anesthesia/Blood Transfusion Reactions: No Reported Reaction Past Psychological History: No Psychological Hx Reported Smoking Status: Former smoker, Vaper Past Alcohol Use History: None Reported Past Drug Use History: None Reported - Past Family History Father History Unknown: Yes Family Medical History: Dementia Additional Family Medical History / Comment(s): Father is living. Mother Family Medical History: Diabetes Mellitus Additional Family Medical History / Comment(s): Mother is . General Exam Limitations: no limitations General appearance: alert, in no apparent distress Head exam: Present: atraumatic, normocephalic Eye exam: Present: normal appearance. Absent: scleral icterus, conjunctival injection ENT exam: Present: mucous membranes dry Respiratory exam: Present: normal lung sounds bilaterally. Absent: respiratory distress, wheezes, rales, rhonchi, stridor Cardiovascular Exam: Present: regular rate, normal rhythm, normal heart sounds. Absent: systolic murmur, diastolic murmur, rubs, gallop GI/Abdominal exam: Present: soft. Absent: distended, tenderness, guarding, rebound, rigid, mass Extremities exam: Present: normal inspection, normal capillary refill. Absent: pedal edema, calf tenderness Back exam: Present: normal inspection. Absent: CVA tenderness (R), CVA tenderness (L) Neurological exam: Present: alert Skin exam: Present: warm, dry, intact, normal color. Absent: rash Course Vital Signs 01/05/21 04:21 Temperature 98.3 F Pulse Rate 75 Respiratory 18 Rate Blood Pressure 135/92 O2 Sat by Pulse 93 L Oximetry Medical Decision Making - Lab Data Result diagrams: 01/05/21 04:47 01/05/21 04:47 Lab Results 01/05/21 01/05/21 01/05/21 Range/Units 04:31 04:47 04:47 WBC 7.5 (3.8-10.6) k/uL RBC 4.96 (4.30-5.90) m/uL Hgb 13.9 (13.0-17.5) gm/dL Hct 42.2 (39.0-53.0) % MCV 85.1 (80.0-100.0) fL MCH 28.0 (25.0-35.0) pg MCHC 32.9 (31.0-37.0) g/dL RDW 14.9 (11.5-15.5) % Plt Count 197 (150-450) k/uL MPV 9.7 Neutrophils % 70 % Lymphocytes % 20 % Monocytes % 4 % Eosinophils % 5 % Basophils % 0 % Neutrophils # 5.2 (1.3-7.7) k/uL Lymphocytes # 1.5 (1.0-4.8) k/uL Monocytes # 0.3 (0-1.0) k/uL Eosinophils # 0.4 (0-0.7) k/uL Basophils # 0.0 (0-0.2) k/uL Sodium 134 L (137-145) mmol/L Potassium 4.6 (3.5-5.1) mmol/L Chloride 91 L (98-107) mmol/L Carbon Dioxide 26 (22-30) mmol/L Anion Gap 17 mmol/L BUN 17 (9-20) mg/dL Creatinine 0.77 (0.66-1.25) mg/dL Est GFR (CKD-EPI)AfAm >90 (>60 ml/min/1.73 sqM) Est GFR (CKD-EPI)NonAf >90 (>60 ml/min/1.73 sqM) Glucose 791 H* (74-99) mg/dL POC Glucose (mg/dL) >600 H (75-99) mg/dL POC Glu Music Mixer ID Pamela Guardado Calcium 9.8 (8.4-10.2) mg/dL Total Bilirubin 0.7 (0.2-1.3) mg/dL AST 24 (17-59) U/L ALT 21 (4-49) U/L Alkaline Phosphatase 348 H (38-126) U/L Ammonia (<30) umol/L Total Protein 8.0 (6.3-8.2) g/dL Albumin 4.6 (3.5-5.0) g/dL Amylase 268 H (30-110) U/L Lipase 2832 H (23-300) U/L Urine Color Urine Appearance (Clear) Urine pH (5.0-8.0) Ur Specific [place] (1.001-1.035) Urine Protein (Negative) Urine Glucose (UA) (Negative) Urine Ketones (Negative) Urine Blood (Negative) Urine Nitrite (Negative) Urine Bilirubin (Negative) Urine Urobilinogen (<2.0) mg/dL Ur Leukocyte Esterase (Negative) Acetone, Qual Negative (Negative) 01/05/21 01/05/21 01/05/21 Range/Units 04:47 04:55 06:46 WBC (3.8-10.6) k/uL RBC (4.30-5.90) m/uL Hgb (13.0-17.5) gm/dL Hct (39.0-53.0) % MCV (80.0-100.0) fL MCH (25.0-35.0) pg MCHC (31.0-37.0) g/dL RDW (11.5-15.5) % Plt Count (150-450) k/uL MPV Neutrophils % % Lymphocytes % % Monocytes % % Eosinophils % % Basophils % % Neutrophils # (1.3-7.7) k/uL Lymphocytes # (1.0-4.8) k/uL Monocytes # (0-1.0) k/uL Eosinophils # (0-0.7) k/uL Basophils # (0-0.2) k/uL Sodium (137-145) mmol/L Potassium (3.5-5.1) mmol/L Chloride (98-107) mmol/L Carbon Dioxide (22-30) mmol/L Anion Gap mmol/L BUN (9-20) mg/dL Creatinine (0.66-1.25) mg/dL Est GFR (CKD-EPI)AfAm (>60 ml/min/1.73 sqM) Est GFR (CKD-EPI)NonAf (>60 ml/min/1.73 sqM) Glucose (74-99) mg/dL POC Glucose (mg/dL) 510 H (75-99) mg/dL POC Glu Music Mixer ID Elidia Donahue Calcium (8.4-10.2) mg/dL Total Bilirubin (0.2-1.3) mg/dL AST (17-59) U/L ALT (4-49) U/L Alkaline Phosphatase (38-126) U/L Ammonia <9 (<30) umol/L Total Protein (6.3-8.2) g/dL Albumin (3.5-5.0) g/dL Amylase (30-110) U/L Lipase (23-300) U/L Urine Color Light Yellow Urine Appearance Clear (Clear) Urine pH 5.5 (5.0-8.0) Ur Specific [place] 1.034 (1.001-1.035) Urine Protein Negative (Negative) Urine Glucose (UA) 4+ H (Negative) Urine Ketones Negative (Negative) Urine Blood Negative (Negative) Urine Nitrite Negative (Negative) Urine Bilirubin Negative (Negative) Urine Urobilinogen <2.0 (<2.0) mg/dL Ur Leukocyte Esterase Negative (Negative) Acetone, Qual (Negative) Disposition Clinical Impression: New onset type 2 diabetes mellitus Disposition: ADMITTED IP TO THIS HOSP Condition: Fair Referrals: Alexander Randhawa MD [Primary Care Provider] - 1-2 days
[2021-01-05 05:04] LABS: Basophils % (A) 0 %; Eosinophils # (A) 0.4 k/uL (0-0.7); Eosinophils % (A) 5 %; HCT 42.2 % (39.0-53.0); HGB 13.9 gm/dL (13.0-17.5); Lymphocytes # (A) 1.5 k/uL (1.0-4.8); Lymphocytes % (A) 20 %; MCHC 32.9 g/dL (31.0-37.0); MCV 85.1 fL (80.0-100.0); Mean Platelet Volume 9.7; Monocytes # (A) 0.3 k/uL (0-1.0); Monocytes % (A) 4 %; Neutrophils # (A) 5.2 k/uL (1.3-7.7); Neutrophils % (A) 70 %; Platelet Count 197 k/uL (150-450); RBC 4.96 m/uL (4.30-5.90); RDW 14.9 % (11.5-15.5); WBC 7.5 k/uL (3.8-10.6)
[2021-01-05 05:13] LABS: ALT 21 U/L (4-49); AST 24 U/L (17-59); African American GFR (CKD) >90 (>60 ml/min/1.73 sqM); Albumin 4.6 g/dL (3.5-5.0); Alkaline Phosphatase 348 U/L (38-126); Amylase 268 U/L (30-110); Anion Gap 17 mmol/L; Blood Urea Nitrogen 17 mg/dL (9-20); Calcium 9.8 mg/dL (8.4-10.2); Carbon Dioxide 26 mmol/L (22-30); Chloride 91 mmol/L (98-107); Non-African American GFR(CKD) >90 (>60 ml/min/1.73 sqM); Potassium 4.6 mmol/L (3.5-5.1); Sodium 134 mmol/L (137-145); Total Bilirubin 0.7 mg/dL (0.2-1.3)
[2021-01-05 05:20] LABS: Lipase 2832 U/L (23-300)
[2021-01-05 05:21] LABS: Glucose 791 mg/dL (74-99)
[2021-01-05 05:24] LABS: Appearance,Urine Clear (Clear); Bilirubin,Urine Negative (Negative); Blood,Urine Negative (Negative); Color,Urine Light Yellow; Glucose,Urine (UA) 4+ (Negative); Ketones,Urine Negative (Negative); Leukocyte Esterase,Urine Negative (Negative); Nitrite,Urine Negative (Negative); PH, Urine 5.5 (5.0-8.0); Protein,Urine Negative (Negative); Specific Gravity,Urine 1.034 (1.001-1.035); Urobilinogen,Urine <2.0 mg/dL (<2.0)
--- NOTE | 2021-01-05 06:09 | XR ---
EXAM: XR Abdomen, 2 Views CLINICAL HISTORY: ITS.REASON XR Reason: abdominal pain TECHNIQUE: Frontal view of the abdomen/pelvis with upright view of the abdomen. COMPARISON: 03/13/20 surgical clip in the right upper quadrant presumably from prior cholecystectomy. FINDINGS: Lower thorax: Opacity in the right lung base which may represent pleural effusion versus pleural thickening. Mild right basilar atelectasis, improved compared to the prior study. Intraperitoneal space: No free air. Gastrointestinal tract: Gas filled small and large bowel loops, nonspecific. Few nonspecific air-fluid levels in small bowel loops. Bones/joints: Degenerative changes in both hips, unchanged. IMPRESSION: 1. No free air. 2. Nonspecific bowel gas pattern. 3. No plain film evidence for bowel obstruction. 4. No radiopaque renal calculus
[2021-01-05 06:48] LABS: Glucose,Whole Blood 510 mg/dL (75-99)
[2021-01-05] MEDS ORDERED: NALOXONE 0.4 MG/ML 1 ML VIAL IV PRN (06:48)
--- NOTE | 2021-01-05 06:58 | P.HPIM ---
History of Present Illness H&P Date: 01/05/21 The patient is a 50-year-old male with a PMH of alcoholic cirrhosis, hepatic encephalopathy, peripheral neuropathy, and esophagitis who presented to the emergency room with complaints of polyuria, increased thirst, and polydipsia. Patient notes that his symptoms started over the last one week and have gradually worsened. He reports drinking upwards of a gallon of soda each day over the past week along with significant amount of water due to his increased thirst. He reports urinating every 15 minutes. The patient reports that his diet is somewhat poor consisting largely of highly processed premade food and sugary drinks. The patient denied additional complaints. He denied chest pain, shortness of breath, blurred vision, abdominal pain, nausea, vomiting, diarrhea. Denied fever, chills, headaches, or dizziness. In the emergency room, laboratory evaluation revealed a glucose of 791, sodium 134, chloride 91, alk phos 348, and lipase 2832. The patient is being admitted to the medicine service for further management of newly diagnosed diabetes mellitus. Review of Systems Pertinent positives and negatives as discussed in HPI, a complete review of systems was performed and all other systems are negative. Past Medical History Past Medical History: GERD/Reflux, GI Bleed, Liver Disease, Pneumonia, Skin Disorder Additional Past Medical History / Comment(s): Past ETOH abuse-has not drank s wesly 2015, alcoholic liver cirrhosis/portal htn, hepatic encephalopathy, ascites with numerous paracentesis, AMS/high amylase/vented, pancreatitis, upper GI bleed, gastric antral vascular ectasia, pancytopenia r/t cirrhosis, chronic anemia, hiatal hernia, neuropathy bilateral legs/feet and had past sores bilateral feet, chronic back pain. History of Any Multi-Drug Resistant Organisms: None Reported Past Surgical History: Adenoidectomy, Back Surgery, Cholecystectomy, Hernia Repair, Tonsillectomy Additional Past Surgical History / Comment(s): Open heart surgery to remove glass from heart (fell into glass on a door), low back surgery, R inguinal hernia repair, EGD, I&D L foot wound Past Anesthesia/Blood Transfusion Reactions: No Reported Reaction Past Psychological History: No Psychological Hx Reported Smoking Status: Former smoker, Vaper Past Alcohol Use History: None Reported Past Drug Use History: None Reported - Past Family History Father History Unknown: Yes Family Medical History: Dementia Additional Family Medical History / Comment(s): Father is living. Mother Family Medical History: Diabetes Mellitus Additional Family Medical History / Comment(s): Mother is . Medications and Allergies Home Medications Medication Instructions Recorded Confirmed Type Thiamine [Vitamin B-1] 100 mg PO DAILY #30 tab 11/06/16 05/21/20 Rx Folic Acid 1 mg PO DAILY 05/20/18 05/21/20 History modafiniL [Provigil] 200 mg PO BID 05/20/18 05/21/20 History Furosemide [Lasix] 20 mg PO DAILY 11/21/19 05/21/20 History Rifaximin [Xifaxan] 550 mg PO TID 11/21/19 05/21/20 History Spironolactone [Aldactone] 50 mg PO BID 11/21/19 05/21/20 History Pregabalin [Lyrica] 200 mg PO AC-TID 02/14/20 05/21/20 History armodafiniL [Nuvigil] 250 mg PO DAILY 02/14/20 05/21/20 History Mirtazapine [Remeron] 7.5 mg PO HS #30 tab 03/19/20 05/21/20 Rx Omeprazole [PriLOSEC] 40 mg PO BID #60 cap 03/19/20 05/21/20 Rx Buprenorphine HCl/Naloxone HCl 1 film SL QID 05/18/20 05/21/20 History [Suboxone 8 mg-2 mg Sl Film] Lactulose [Cephulac] 30 gm PO TID 05/18/20 05/21/20 History Nicotine 21Mg/24Hr Patch [Habitrol] 1 patch TRANSDERM DAILY #30 patch 05/21/20 Rx levoFLOXacin 750 mg PO DAILY 3 Days #4 tab 05/21/20 Rx Allergies Allergy/AdvReac Type Severity Reaction Status Date / Time No Known Allergies Allergy Verified 01/05/21 04:24 Physical Exam Vitals: Vital Signs Temp Pulse Resp BP Pulse Ox 01/05/21 04:21 98.3 F 75 18 135/92 93 L Intake and Output 01/04/21 01/04/21 01/05/21 14:59 22:59 06:59 Other: Weight 117.934 kg General: non toxic, no distress, appears at stated age, obese Derm: no unusual rashes/lesions no unusual ecchymoses, warm, dry Head: atraumatic, normocephalic, symmetric Eyes: EOMI, no lid lag, anicteric sclera, pupils equal round reactive to light ENT: Nose and ears atraumatic, no thrush, no pharyngeal erythema, poor dentition Neck: No thyromegaly, no cervical lymphadenopathy, trachea midline, supple Mouth: no lip lesion, mucus membranes moist Cardiovascular: S1S2 reg, no murmur, positive posterior tibial pulse bilateral, no edema, capillary refill less than 2 seconds Lungs: CTA bilateral, no rhonchi, no rales , no accessory muscle use Abdominal: Obese, somewhat distended, nontender to palpation, no guarding, no appreciable organomegaly, normal bowel sounds, diastasis recti noted Ext: no gross muscle atrophy, muscle strength 5 out of 5 in all 4 extremities grossly, no contractures, Neuro: CN II-XI grossly intact, somewhat diminished sensation to light touch bilateral lower extremities to mid shins, finger to nose within normal limits, Psych: Alert, oriented, appropriate affect Results CBC & Chem 7: 01/05/21 04:47 01/05/21 04:47 Labs: Abnormal Lab Results - Last 24 Hours (Table) 01/05/21 01/05/21 01/05/21 Range/Units 04:31 04:47 04:55 Sodium 134 L (137-145) mmol/L Chloride 91 L (98-107) mmol/L Glucose 791 H* (74-99) mg/dL POC Glucose (mg/dL) >600 H (75-99) mg/dL Alkaline Phosphatase 348 H (38-126) U/L Amylase 268 H (30-110) U/L Lipase 2832 H (23-300) U/L Urine Glucose (UA) 4+ H (Negative) Assessment and Plan Plan: Newly diagnosed type II DM -Start Levemir 10 units daily at bedtime with lispro insulin sliding scale -Check A1c -Dietitian and staff educator consults -Advised patient on the importance of a healthy balanced diet -Continue with IV fluids Elevated lipase -Patient currently denying symptoms of pancreatitis -Possibly due to significant hyperglycemia -Continue with IV fluids and monitor for now Alcohol cirrhosis with history of hepatic encephalopathy -Continue with home medications Diastasis recti -Patient advised to f/u with a physical therapist and general surgery as an outpatient DVT prophylaxis -Heparin subq The patient is admitted with an anticipated greater than 2 midnight stay for evaluation of type 2 DM CODE STATUS: Full Code Discussed with: patient, Anticipated discharge date: 2-[address]: home A total of 35 minutes was spent on the care of this complex patient more than 50% of the time was spent in counseling and care coordination.
[2021-01-05] MEDS: SODIUM CHLORIDE 0.9% 1,000 ML IV SCH ×4 (07:26→21:01)
[2021-01-05 07:30] LABS: Glucose,Whole Blood 456 mg/dL (75-99)
[2021-01-05] MEDS: PANTOPRAZOLE 40 MG TABLET PO SCH ×2 (07:51→16:57)
[2021-01-05] MEDS: INSULIN DETEMIR (LEVEMIR) 100 UNIT/ML SYR SQ SCH (07:51)
[2021-01-05] MEDS: INSULIN ASPART (NovoLOG) 100 UNIT/ML VIAL SQ SCH ×4 (07:52→21:00)
[2021-01-05] MEDS: ARMODAFINIL 250 MG PO SCH (08:48)
[2021-01-05] MEDS: RIFAXIMIN 550 MG TABLET PO SCH ×3 (08:53→21:03)
[2021-01-05] MEDS: LACTULOSE 20 GM/30 ML CUP PO SCH ×3 (08:53→21:01)
[2021-01-05] MEDS: FOLIC ACID 1 MG TAB PO SCH (08:53)
[2021-01-05] MEDS: NICOTINE 21MG/24HR PATCH TRANSDERM SCH (08:53)
[2021-01-05] MEDS: PREGABALIN 100 MG CAP PO SCH ×3 (08:54→16:57)
[2021-01-05] MEDS: THIAMINE 100 MG TAB PO SCH (08:55)
[2021-01-05] MEDS ORDERED: NON FORMULARY DRUG (Buprenorphine Hcl/Naloxone Hcl [Suboxone 8 Mg-2 Mg Sl Film] 1 EACH Fil SUBLINGUAL SCH (09:00)
[2021-01-05] MEDS: SPIRONOLACTONE 25 MG TAB PO SCH ×2 (09:08→21:01)
[2021-01-05 11:26] LABS: Glucose,Whole Blood 389 mg/dL (75-99)
[2021-01-05 13:38] VITALS: BMI 30.8
[2021-01-05 17:27] LABS: Glucose,Whole Blood 289 mg/dL (75-99)
[2021-01-05 20:01] LABS: Glucose,Whole Blood 263 mg/dL (75-99)
[2021-01-05] MEDS: MIRTAZAPINE 15 MG TAB PO SCH (21:00)
[2021-01-06 01:48] LABS: Glucose,Whole Blood 134 mg/dL (75-99)
[2021-01-06] MEDS: SODIUM CHLORIDE 0.9% 1,000 ML IV SCH ×3 (05:11→15:57)
[2021-01-06 07:04] LABS: Glucose,Whole Blood 241 mg/dL (75-99)
[2021-01-06] MEDS: LACTULOSE 20 GM/30 ML CUP PO SCH ×3 (08:16→21:29)
[2021-01-06] MEDS: INSULIN ASPART (NovoLOG) 100 UNIT/ML VIAL SQ SCH ×4 (08:16→21:13)
[2021-01-06] MEDS: SPIRONOLACTONE 25 MG TAB PO SCH ×2 (08:17→21:25)
[2021-01-06] MEDS: THIAMINE 100 MG TAB PO SCH (08:17)
[2021-01-06] MEDS: PREGABALIN 100 MG CAP PO SCH ×3 (08:17→17:48)
[2021-01-06] MEDS: NICOTINE 21MG/24HR PATCH TRANSDERM SCH (08:17)
[2021-01-06] MEDS: FOLIC ACID 1 MG TAB PO SCH (08:17)
[2021-01-06] MEDS: INSULIN DETEMIR (LEVEMIR) 100 UNIT/ML SYR SQ SCH (08:17)
[2021-01-06] MEDS: PANTOPRAZOLE 40 MG TABLET PO SCH ×2 (08:17→17:48)
[2021-01-06] MEDS: ARMODAFINIL 250 MG PO SCH (08:57)
[2021-01-06] MEDS: RIFAXIMIN 550 MG TABLET PO SCH ×3 (09:22→21:27)
[2021-01-06 11:12] LABS: Glucose,Whole Blood 328 mg/dL (75-99)
--- NOTE | 2021-01-06 15:26 | P.PN ---
Subjective Progress Note Date: 01/06/21 Principal diagnosis: Polyuria and polydipsia Feeling better overall. No pain or sob. No fevers. Objective - Vital Signs Vital signs: Vital Signs Temp 98.1 F 01/06/21 11:08 Pulse 60 01/06/21 11:08 Resp 16 01/06/21 11:08 BP 110/69 01/06/21 11:08 Pulse Ox 96 01/06/21 11:08 Intake & Output 01/05/21 01/06/21 01/06/21 18:59 06:59 18:59 Intake Total 4880 Balance 4880 Weight 117.934 kg Intake: Intake, IV Titration 2400 Amount Sodium Chloride 0.9% 1, 2400 000 ml @ 200 mls/hr IV . Q5H PENDING SALE TO [facility] Rx#:[id number] Oral 2480 Other: Voiding Method Toilet # Voids 4 3 - Exam General: non toxic, no distress, appears at stated age, obese Derm: no unusual rashes/lesions no unusual ecchymoses, warm, dry Head: atraumatic, normocephalic, symmetric Eyes: EOMI, no lid lag, anicteric sclera, pupils equal round reactive to light ENT: Nose and ears atraumatic, no thrush, no pharyngeal erythema, poor dentition Neck: No thyromegaly, no cervical lymphadenopathy, trachea midline, supple Mouth: no lip lesion, mucus membranes moist Cardiovascular: S1S2 reg, no murmur, positive posterior tibial pulse bilateral, no edema, capillary refill less than 2 seconds Lungs: CTA bilateral, no rhonchi, no rales , no accessory muscle use Abdominal: Obese, somewhat distended, nontender to palpation, no guarding, no appreciable organomegaly, normal bowel sounds, diastasis recti noted Ext: no gross muscle atrophy, muscle strength 5 out of 5 in all 4 extremities grossly, no contractures, Neuro: CN II-XI grossly intact, somewhat diminished sensation to light touch bilateral lower extremities to mid shins, finger to nose within normal limits, Psych: Alert, oriented, appropriate affect - Labs CBC & Chem 7: 01/05/21 04:47 01/05/21 04:47 Labs: Abnormal Lab Results - Last 24 Hours (Table) 01/05/21 01/05/21 01/06/21 Range/Units 17:20 19:59 01:46 POC Glucose (mg/dL) 289 H 263 H 134 H (75-99) mg/dL 01/06/21 01/06/21 Range/Units 07:02 11:11 POC Glucose (mg/dL) 241 H 328 H (75-99) mg/dL Assessment and Plan Plan: Newly diagnosed type II DM -Continue Levemir 10 units daily in the morning, add 5 units for bedtime. -Continue SSI -Check A1c -Dietitian and pipe fitter soft copper consults -Advised patient on the importance of a healthy balanced diet Alcohol cirrhosis with history of hepatic encephalopathy -Stable, continue with home medications Diastasis recti -Patient advised to f/u with a physical therapist and general surgery as an outpatient DVT prophylaxis -Heparin subq Discussed with: patient, Anticipated discharge date: tomorrow once diabetic education complete Anticipated discharge place: home
[2021-01-06 17:14] LABS: Glucose,Whole Blood 273 mg/dL (75-99)
[2021-01-06 20:23] LABS: Glucose,Whole Blood 246 mg/dL (75-99)
[2021-01-06 21:00] VITALS: RESP 18
[2021-01-06] MEDS ORDERED: INSULIN DETEMIR (LEVEMIR) 100 UNIT/ML SYR SQ SCH (21:00)
[2021-01-06] MEDS: MIRTAZAPINE 15 MG TAB PO SCH (21:25)
[2021-01-07] MEDS: SODIUM CHLORIDE 0.9% 1,000 ML IV SCH ×4 (01:49→15:00)
[2021-01-07] MEDS ORDERED: INSULIN DETEMIR (LEVEMIR) 100 UNIT/ML SYR SQ SCH (07:00)
[2021-01-07 07:04] LABS: Glucose,Whole Blood 195 mg/dL (75-99)
[2021-01-07] MEDS: NICOTINE 21MG/24HR PATCH TRANSDERM SCH (08:25)
[2021-01-07] MEDS: THIAMINE 100 MG TAB PO SCH (08:27)
[2021-01-07] MEDS: PREGABALIN 100 MG CAP PO SCH ×2 (08:27→12:55)
[2021-01-07] MEDS: FOLIC ACID 1 MG TAB PO SCH (08:27)
[2021-01-07] MEDS: SPIRONOLACTONE 25 MG TAB PO SCH (08:27)
[2021-01-07] MEDS: PANTOPRAZOLE 40 MG TABLET PO SCH (08:27)
[2021-01-07] MEDS: LACTULOSE 20 GM/30 ML CUP PO SCH (08:28)
[2021-01-07] MEDS: ARMODAFINIL 250 MG PO SCH (08:29)
[2021-01-07] MEDS: INSULIN ASPART (NovoLOG) 100 UNIT/ML VIAL SQ SCH ×2 (08:29→12:55)
[2021-01-07] MEDS: RIFAXIMIN 550 MG TABLET PO SCH (08:47)
[2021-01-07 11:28] LABS: Glucose,Whole Blood 280 mg/dL (75-99)
[2021-01-07 11:37] VITALS: BP 110/78; PULSE 61; TEMP 98.1
--- NOTE | 2021-01-07 15:26 | P.DS ---
Providers Date of admission: 01/05/21 06:51 Expected date of discharge: 01/07/21 Attending physician: Yvonne Chen MD Primary care physician: Alexander Randhawa MD Hospital Course: 50-year-old male with a PMH of alcoholic cirrhosis, hepatic encephalopathy, peripheral neuropathy, and esophagitis who presented to the emergency room with complaints of polyuria, increased thirst, and polydipsia. Patient notes that his symptoms started over the last one week and have gradually worsened. He reports drinking upwards of a gallon of soda each day over the past week along with significant amount of water due to his increased thirst. He reports urinating every 15 minutes. The patient's diet is somewhat poor consisting largely of highly processed pre-made food and sugary drinks. The patient denied additional complaints. He denied chest pain, shortness of breath, blurred vision, abdominal pain, nausea, vomiting, diarrhea. Denied fever, chills, headaches, or dizziness. In the emergency room, laboratory evaluation revealed a glucose of 791, sodium 134, chloride 91, alk phos 348, and lipase 2832. The patient was admitted to the medicine service for further management of newly diagnosed diabetes mellitus. Lipase elevation was likely due to hyperglycemia, he did not have any abdominal pain and pancreatitis was considered unlikely. Patient was admitted, was started on Lantus subcu 10 units in the morning and 5 units at night. He was also started on sliding scale insulin. His sugars came down to the 200 range with the above treatment. He was counseled extensively in regards to his diet, was told not to drink anything but water. He was also told to increase vegetables and fruits in his diet. He verbalized understanding. Time for discharge 35 minutes. Patient Condition at Discharge: Fair Plan - Discharge Summary Discharge Rx Participant: No New Discharge Prescriptions: New Insulin Detemir (Levemir) [Levemir] 5 unit SQ HS 30 Days #1 syr Insulin Detemir (Levemir) [Levemir] 10 unit SQ DAILY@0700 30 Days #1 syr Insulin Aspart 5 units SQ TID 30 Days #1 vial Continue Thiamine [Vitamin B-1] 100 mg PO DAILY #30 tab modafiniL [Provigil] 200 mg PO BID Folic Acid 1 mg PO DAILY Spironolactone [Aldactone] 50 mg PO BID Furosemide [Lasix] 20 mg PO DAILY Rifaximin [Xifaxan] 550 mg PO BID Pregabalin [Lyrica] 200 mg PO AC-TID armodafiniL [Nuvigil] 250 mg PO DAILY Omeprazole [PriLOSEC] 40 mg PO BID #60 cap Buprenorphine HCl/Naloxone HCl [Suboxone 8 mg-2 mg Sl Film] 1 film SL QID Lactulose [Cephulac] 30 gm PO AC-TID Nicotine 21Mg/24Hr Patch [Habitrol] 1 patch TRANSDERM DAILY #30 patch Mirtazapine 7.5 mg PO HS Discharge Medication List Thiamine [Vitamin B-1] 100 mg PO DAILY #30 tab 11/06/16 [Rx] Folic Acid 1 mg PO DAILY 05/20/18 [History] modafiniL [Provigil] 200 mg PO BID 05/20/18 [History] Furosemide [Lasix] 20 mg PO DAILY 11/21/19 [History] Rifaximin [Xifaxan] 550 mg PO BID 11/21/19 [History] Spironolactone [Aldactone] 50 mg PO BID 11/21/19 [History] Pregabalin [Lyrica] 200 mg PO AC-TID 02/14/20 [History] armodafiniL [Nuvigil] 250 mg PO DAILY 02/14/20 [History] Omeprazole [PriLOSEC] 40 mg PO BID #60 cap 03/19/20 [Rx] Buprenorphine HCl/Naloxone HCl [Suboxone 8 mg-2 mg Sl Film] 1 film SL QID 05/18/20 [History] Lactulose [Cephulac] 30 gm PO AC-TID 05/18/20 [History] Nicotine 21Mg/24Hr Patch [Habitrol] 1 patch TRANSDERM DAILY #30 patch 05/21/20 [Rx] Mirtazapine 7.5 mg PO HS 01/05/21 [History] Insulin Aspart 5 units SQ TID 30 Days #1 vial 01/07/21 [Rx] Insulin Detemir (Levemir) [Levemir] 5 unit SQ HS 30 Days #1 syr 01/07/21 [Rx] Insulin Detemir (Levemir) [Levemir] 10 unit SQ DAILY@0700 30 Days #1 syr 01/07/21 [Rx] Follow up Appointment(s)/Referral(s): Alexander Randhawa MD [Primary Care Provider] - 1-2 days Activity/Diet/Wound Care/Special Instructions: [facility] - diabetic supplies -
== END 2021-01-07 16:11 | disposition home or self-care (01) ==
LOC: EEVIPCON 04:18 → EC 04:18 → 5NMEDONC 06:51
PROVIDERS: ADMIT Internal Medicine; ATTEND Internal Medicine
DX: E11.65 Type 2 diabetes mellitus with hyperglycemia (principal); K21.00 Gastro-esophageal reflux disease with esophagitis, without bleeding; K70.30 Alcoholic cirrhosis of liver without ascites; K72.90 Hepatic failure, unspecified without coma; M62.08 Separation of muscle (nontraumatic), other site; K40.90 Unilateral inguinal hernia, without obstruction or gangrene, not specified as recurrent; F10.11 Alcohol abuse, in remission; E66.9 Obesity, unspecified; Z68.30 Body mass index [BMI] 30.0-30.9, adult; G89.29 Other chronic pain; Z79.4 Long term (current) use of insulin; Z79.891 Long term (current) use of opiate analgesic; Z79.899 Other long term (current) drug therapy; Z87.891 Personal history of nicotine dependence; Z98.890 Other specified postprocedural states; Z90.49 Acquired absence of other specified parts of digestive tract; Z83.3 Family history of diabetes mellitus; Z20.822 Contact with and (suspected) exposure to COVID-19
CPT/HCPCS: 96361 ×3; 96360; 99284; 36415; 80053; 82140; 82150; 82009; 83690; 85025; 81003; 87635; 74018; G0378 ×3; S4990 ×3

== ENCOUNTER → 2021-01-18 | Outpatient (CLI) | payer BC ==
[2021-01-18 23:05] LABS: HCT 41.1 % (39.6-50.0); HGB 12.7 g/dL (13.0-17.0); MCH 27.4 pg (27.0-32.0); MCHC 30.9 g/dL (32.0-37.0); MCV 88.6 fL (80.0-97.0); Mean Platelet Volume 10.8 fL (9.5-12.2); Platelet Count 251 X 10*3/uL (140-440); RBC 4.64 X 10*6/uL (4.40-5.60); RDW 14.3 % (11.5-14.5); WBC 7.05 X 10*3/uL (4.50-10.00)
[2021-01-18 23:30] LABS: Prothrombin Time 10.9 sec (9.9-11.9)
[2021-01-19 02:52] LABS: African American GFR (CKD) 99.8 (60.0-200.0); Albumin 4.6 g/dL (3.80-4.90); Albumin/Globulin Ratio 1.92 (1.60-3.17); Anion Gap 11.8 mmol/L (4.00-12.00); Calcium 9.4 mg/dL (8.7-10.3); Carbon Dioxide 27.2 mmol/L (21.6-31.8); Globulin 2.4 g/dL (1.6-3.3); Non-African American GFR(CKD) 86.2 (60.0-200.0); Potassium 4.6 mmol/L (3.5-5.5); Total Bilirubin 0.4 mg/dL (0.2-1.2)
== END | disposition home or self-care (01) ==
LOC: LABWHC1 14:23
PROVIDERS: ATTEND Physician Assistant
DX: K70.31 Alcoholic cirrhosis of liver with ascites (principal)
CPT/HCPCS: 36415; 80053; 82105; 85027; 85610

== ENCOUNTER → 2021-01-29 | Outpatient (CLI) | payer BC ==
--- NOTE | 2021-01-29 08:33 | US ---
EXAMINATION TYPE: US liver DATE OF EXAM: 01/29/2021 COMPARISON: US dated 04/27/[address] & [address] dated 05/18/2020 CLINICAL HISTORY: K70.31 Alcoholic cirrhosis of liver w/ascites. Alcoholic cirrhosis, routine F/U EXAM MEASUREMENTS: Liver Length: 21.7 cm CBD: 1.0 cm Right Kidney: 10.3 x 4.8 x 4.4 cm Pancreas: Obscured by bowel gas Liver: Enlarged, heterogeneous, attenuation improved when compared to previous Gallbladder: Surgically absent Evidence for sonographic Corral's sign: No CBD: wnl, post mauricio Right Kidney: wnl No ascites evident. IMPRESSION: Correlate for hepatocellular disease, hepatic steatosis, there is hepatomegaly. Dilated c ommon bile duct may be due to cholecystectomy change. Exam is limited.
== END | disposition home or self-care (01) ==
LOC: RADUSWWP 07:09
PROVIDERS: ATTEND Family Medicine
DX: K83.8 Other specified diseases of biliary tract (principal); K70.31 Alcoholic cirrhosis of liver with ascites
CPT/HCPCS: 76705

== ENCOUNTER → 2021-11-15 | Outpatient (CLI) | payer BC ==
[2021-11-15 15:22] LABS: African American GFR (CKD) 115.4 (60.0-200.0); Albumin 4.2 g/dL (3.8-4.9); Albumin/Globulin Ratio 1.49 (1.60-3.17); Anion Gap 12.2 mmol/L (10.00-18.00); BUN/Creat Ratio 15.08 Ratio (12.00-20.00); Blood Urea Nitrogen 12.8 mg/dL (9.0-27.0); Calcium 9.4 mg/dL (8.7-10.3); Carbon Dioxide 26.2 mmol/L (20.0-27.5); Globulin 2.8 g/dL (1.6-3.3); Non-African American GFR(CKD) 99.5 (60.0-200.0); Total Bilirubin 0.3 mg/dL (0.30-1.20); Total Protein 7.1 g/dL (6.2-8.2)
[2021-11-15 16:56] LABS: INR 0.99 (0.90-1.11); Prothrombin Time 10.9 sec (9.9-11.9)
== END | disposition home or self-care (01) ==
LOC: LABWHC1 09:47
PROVIDERS: ATTEND Physician Assistant
DX: K70.31 Alcoholic cirrhosis of liver with ascites (principal)
CPT/HCPCS: 36415; 80053; 82105; 85027; 85610

== ENCOUNTER → 2021-12-19 | Outpatient (CLI) | payer BC ==
--- NOTE | 2021-12-19 08:23 | US ---
EXAMINATION TYPE: US abdomen limited DATE OF EXAM: 12/19/2021 COMPARISON: NONE CLINICAL HISTORY: K70.30 ALCOHOLIC CIRRHOSIS. known cirrhosis, lost weight since last exam, no sympto ms, cholecystectomy EXAM MEASUREMENTS: Liver Length: 16.2 cm Gallbladder Wall: Surgically absent CBD: 1.1 cm Right Kidney: 9.5 x 4.3 x 5.1 cm Pancreas: not seen due to bowel gas Liver: intercostal imaging due to bowel gas . Echo pattern coarsened. Gallbladder: Surgically absent Evidence for sonographic Corral's sign: no CBD: dilated, post mauricio Right Kidney: wnl IMPRESSION: 1. Coarsened echo pattern to the liver can be associated with hepatocellular disease or hepatic steat osis correlate clinically.
== END | disposition home or self-care (01) ==
LOC: RADUSWWP 07:38
DX: K76.89 Other specified diseases of liver (principal)
CPT/HCPCS: 76705

== ENCOUNTER 2022-07-28 15:19 | Observation (INO) | payer BC ==
[2022-07-28] MEDS ORDERED: LORazepam 2 MG/ML INJ IV STA (16:16)
--- NOTE | 2022-07-28 16:26 | ED ---
General Adult HPI - General Chief complaint: Anxiety Stated complaint: Panic Attacks Time Seen by Provider: 07/28/22 16:00 Source: patient, RN notes reviewed, old records reviewed Mode of arrival: ambulatory Limitations: no limitations - History of Present Illness Initial comments: This a 52-year-old male presents emergency room with a past medical history significant for anxiety. Patient states she's on Zoloft. Patient states he's been having episodes where he believes he is having panic attacks and then his symptoms resolve he states he has not gone and seen his primary medical care doctor about this. Patient states today he started having those feelings again and he started hyperventilating and had some dry heaving and so he wanted something to relax and came to the emergency department. Patient does state he also becomes very lightheaded. She denies any chest pain or palpitations. Patient any recent fever chills or cough. Patient denies any abdominal pain. Patient denies any lightheadedness or dizziness. - Related Data Home Medications Medication Instructions Recorded Confirmed Folic Acid 1 mg PO DAILY 05/20/18 01/05/21 modafiniL [Provigil] 200 mg PO BID 05/20/18 01/05/21 Furosemide [Lasix] 20 mg PO DAILY 11/21/19 01/05/21 Rifaximin [Xifaxan] 550 mg PO BID 11/21/19 01/05/21 Spironolactone [Aldactone] 50 mg PO BID 11/21/19 01/05/21 Pregabalin [Lyrica] 200 mg PO AC-TID 02/14/20 01/05/21 armodafiniL [Nuvigil] 250 mg PO DAILY 02/14/20 01/05/21 Buprenorphine HCl/Naloxone HCl 1 film SL QID 05/18/20 01/05/21 [Suboxone 8 mg-2 mg Sl Film] Lactulose [Cephulac] 30 gm PO AC-TID 05/18/20 01/05/21 Mirtazapine 7.5 mg PO HS 01/05/21 01/05/21 Previous Rx's Medication Instructions Recorded Thiamine [Vitamin B-1] 100 mg PO DAILY #30 tab 11/06/16 Omeprazole [PriLOSEC] 40 mg PO BID #60 cap 03/19/20 Nicotine 21Mg/24Hr Patch [Habitrol] 1 patch TRANSDERM DAILY #30 patch 05/21/20 Insulin Aspart 5 units SQ TID 30 Days #1 vial 01/07/21 Insulin Detemir (Levemir) [Levemir] 5 unit SQ HS 30 Days #1 syr 01/07/21 Insulin Detemir (Levemir) [Levemir] 10 unit SQ DAILY@0700 30 Days #1 01/07/21 syr Allergies Allergy/AdvReac Type Severity Reaction Status Date / Time No Known Allergies Allergy Verified 07/28/22 15:43 Review of Systems ROS Statement: Those systems with pertinent positive or pertinent negative responses have been documented in the HPI. ROS Other: All systems not noted in ROS Statement are negative. Past Medical History Past Medical History: GERD/Reflux, GI Bleed, Liver Disease, Pneumonia, Skin Disorder Additional Past Medical History / Comment(s): Past ETOH abuse-has not drank since 2015, alcoholic liver cirrhosis/portal htn, hepatic encephalopathy, ascites with numerous paracentesis, AMS/high amylase/vented, pancreatitis, upper GI bleed, gastric antral vascular ectasia, pancytopenia r/t cirrhosis, chronic anemia, hiatal hernia, neuropathy bilateral legs/feet and had past sores bilateral feet, chronic back pain. History of Any Multi-Drug Resistant Organisms: None Reported Past Surgical History: Adenoidectomy, Back Surgery, Cholecystectomy, Hernia Repair, Tonsillectomy Additional Past Surgical History / Comment(s): Open heart surgery to remove glass from heart (fell into glass on a door), low back surgery, R inguinal hernia repair, EGD, I&D L foot wound Past Anesthesia/Blood Transfusion Reactions: No Reported Reaction Past Psychological History: No Psychological Hx Reported Smoking Status: Current every day smoker Past Alcohol Use History: None Reported Past Drug Use History: None Reported - Past Family History Father History Unknown: Yes Family Medical History: Dementia Additional Family Medical History / Comment(s): Father is living. Mother Family Medical History: Diabetes Mellitus Additional Family Medical History / Comment(s): Mother is . General Exam - General Exam Comments Initial Comments: GENERAL: Patient is well-developed and well-nourished. Patient is nontoxic and well- hydrated and is in no acute distress. ENT: Neck is soft and supple. No significant lymphadenopathy is noted. Oropharynx is clear. Moist mucous membranes. Neck has full range of motion without alex citing any pain. EYES: The sclera were anicteric and conjunctiva were pink and moist. Extraocular movements were intact and pupils were equal round and reactive to light. Eyelids were unremarkable. PULMONARY: Unlabored respirations. Good breath sounds bilaterally. No audible rales rhonchi or wheezing was noted. CARDIOVASCULAR: Patient's heart rate is regular but slow at about 50 beats a minute ABDOMEN: Soft and nontender with normal bowel sounds. SKIN: Skin is clear with no lesions or rashes and otherwise unremarkable. NEUROLOGIC: Patient is alert and oriented x3. Cranial nerves II through XII are grossly intact. Motor and sensory are also intact. Normal speech, volume and content. Symmetrical smile. MUSCULOSKELETAL: Normal extremities with adequate strength and full range of motion. No lower extremity swelling or edema. No calf tenderness. LYMPHATICS: No significant lymphadenopathy is noted PSYCHIATRIC: Patient seems mildly anxious Limitations: no limitations Course Vital Signs 07/28/22 07/28/22 15:39 18:21 Temperature 97.8 F Pulse Rate 62 53 L Respiratory 20 18 Rate Blood Pressure 147/90 151/89 O2 Sat by Pulse 96 98 Oximetry Medical Decision Making - Medical Decision Making EKG shows sinus bradycardia at 43 bpm UT interval is 233 QRSs 126 QT interval 455 QTC is 41 per patient's EKG shows no ST segment elevation or depression. Patient was not on any beta blockers in his heart rate was in the 40s multiple times throughout his stay. His lungs the patient was lying in bed he was fairly asymptomatic mildly anxious. Patient states his been ongoing for quite a while and has been very intermittent. I spoke with Dr. Kenney and he wanted the patient admitted admitted the patient wrote admitting orders - Lab Data Result diagrams: 07/28/22 16:41 07/28/22 16:41 Lab Results 07/28/22 07/28/22 07/28/22 Range/Units 16:41 16:41 17:29 WBC 3.4 L (3.8-10.6) k/uL RBC 4.65 (4.30-5.90) m/uL Hgb 13.0 (13.0-17.5) gm/dL Hct 39.3 (39.0-53.0) % MCV 84.4 (80.0-100.0) fL MCH 27.9 (25.0-35.0) pg MCHC 33.1 (31.0-37.0) g/dL RDW 15.1 (11.5-15.5) % Plt Count 121 L (150-450) k/uL MPV 9.7 Neutrophils % 77 % Lymphocytes % 13 % Monocytes % 6 % Eosinophils % 2 % Basophils % 0 % Neutrophils # 2.6 (1.3-7.7) k/uL Lymphocytes # 0.5 L (1.0-4.8) k/uL Monocytes # 0.2 (0-1.0) k/uL Eosinophils # 0.1 (0-0.7) k/uL Basophils # 0.0 (0-0.2) k/uL Hypochromasia Slight Sodium 138 (137-145) mmol/L Potassium 4.8 (3.5-5.1) mmol/L Chloride 102 (98-107) mmol/L Carbon Dioxide 24 (22-30) mmol/L Anion Gap 12 mmol/L BUN 13 (9-20) mg/dL Creatinine 0.61 L (0.66-1.25) mg/dL Est GFR (CKD-EPI)AfAm >90 (>60 ml/min/1.73 sqM) Est GFR (CKD-EPI)NonAf >90 (>60 ml/min/1.73 sqM) Glucose 172 H (74-99) mg/dL Calcium 8.8 (8.4-10.2) mg/dL Magnesium (1.6-2.3) mg/dL Total Bilirubin 0.3 (0.2-1.3) mg/dL AST 35 (17-59) U/L ALT 57 H (4-49) U/L Alkaline Phosphatase 116 (38-126) U/L Troponin I <0.012 (0.000-0.034) ng/mL Total Protein 7.2 (6.3-8.2) g/dL Albumin 4.3 (3.5-5.0) g/dL TSH (0.465-4.680) mIU/L 07/28/22 Range/Units 17:29 WBC (3.8-10.6) k/uL RBC (4.30-5.90) m/uL Hgb (13.0-17.5) gm/dL Hct (39.0-53.0) % MCV (80.0-100.0) fL MCH (25.0-35.0) pg MCHC (31.0-37.0) g/dL RDW (11.5-15.5) % Plt Count (150-450) k/uL MPV Neutrophils % % Lymphocytes % % Monocytes % % Eosinophils % % Basophils % % Neutrophils # (1.3-7.7) k/uL Lymphocytes # (1.0-4.8) k/uL Monocytes # (0-1.0) k/uL Eosinophils # (0-0.7) k/uL Basophils # (0-0.2) k/uL Hypochromasia Sodium (137-145) mmol/L Potassium (3.5-5.1) mmol/L Chloride (98-107) mmol/L Carbon Dioxide (22-30) mmol/L Anion Gap mmol/L BUN (9-20) mg/dL Creatinine (0.66-1.25) mg/dL Est GFR (CKD-EPI)AfAm (>60 ml/min/1.73 sqM) Est GFR (CKD-EPI)NonAf (>60 ml/min/1.73 sqM) Glucose (74-99) mg/dL Calcium (8.4-10.2) mg/dL Magnesium 2.4 H (1.6-2.3) mg/dL Total Bilirubin (0.2-1.3) mg/dL AST (17-59) U/L ALT (4-49) U/L Alkaline Phosphatase (38-126) U/L Troponin I (0.000-0.034) ng/mL Total Protein (6.3-8.2) g/dL Albumin (3.5-5.0) g/dL TSH 0.891 (0.465-4.680) mIU/L Disposition Clinical Impression: Bradycardia, Lightheadedness, Hyperventilation Disposition: ADMITTED IP TO THIS [facility] Instructions (If sedation given, give patient instructions): Generalized Anxiety Disorder (ED) Referrals: Jesus Verduzco MD [Primary Care Provider] - 1-2 days Time of Disposition: 19:35
[2022-07-28 16:48] LABS: Basophils % (A) 0 %; Eosinophils # (A) 0.1 k/uL (0-0.7); Eosinophils % (A) 2 %; HCT 39.3 % (39.0-53.0); Hypochromasia Slight; Lymphocytes # (A) 0.5 k/uL (1.0-4.8); Lymphocytes % (A) 13 %; MCH 27.9 pg (25.0-35.0); MCHC 33.1 g/dL (31.0-37.0); MCV 84.4 fL (80.0-100.0); Mean Platelet Volume 9.7; Monocytes # (A) 0.2 k/uL (0-1.0); Monocytes % (A) 6 %; Neutrophils # (A) 2.6 k/uL (1.3-7.7); Neutrophils % (A) 77 %; Platelet Count 121 k/uL (150-450); RBC 4.65 m/uL (4.30-5.90); RDW 15.1 % (11.5-15.5); WBC 3.4 k/uL (3.8-10.6)
[2022-07-28 17:02] LABS: ALT 57 U/L (4-49); AST 35 U/L (17-59); African American GFR (CKD) >90 (>60 ml/min/1.73 sqM); Albumin 4.3 g/dL (3.5-5.0); Alkaline Phosphatase 116 U/L (38-126); Anion Gap 12 mmol/L; Blood Urea Nitrogen 13 mg/dL (9-20); Calcium 8.8 mg/dL (8.4-10.2); Carbon Dioxide 24 mmol/L (22-30); Chloride 102 mmol/L (98-107); Glucose 172 mg/dL (74-99); Non-African American GFR(CKD) >90 (>60 ml/min/1.73 sqM); Potassium 4.8 mmol/L (3.5-5.1); Sodium 138 mmol/L (137-145); Total Bilirubin 0.3 mg/dL (0.2-1.3); Total Protein 7.2 g/dL (6.3-8.2)
[2022-07-28 18:04] LABS: Magnesium 2.4 mg/dL (1.6-2.3)
[2022-07-29] MEDS: LORazepam 0.5 MG TAB PO PRN ×2 (00:08→06:51)
[2022-07-29 07:32] LABS: Glucose,Whole Blood 137 mg/dL (70-110)
[2022-07-29 08:45] LABS: Glucose,Whole Blood 141 mg/dL (70-110)
[2022-07-29 09:07] LABS: Chol/HDL Ratio 4.49 Ratio; LDL Cholesterol,Calculated 126.1 mg/dL (0.0-131.0); VLDL Calculation 17.74 mg/dL (5.00-40.00)
--- NOTE | 2022-07-29 09:47 | P.CRDCN ---
History of Present Illness History of present illness: HISTORY OF PRESENTING ILLNESS This is a pleasant 52-year-old male past medical history significant for alcoholic cirrhosis, hepatic encephalopathy, peripheral neuropathy, esophagitis, anxiety, GERD, alcohol abuse, chronic nicotine dependence. 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 We have been asked to see in consultation for bradycardia. Patient presents emergency department with complaints of "feeling out of it". He states he has difficulty describing why he is here. Patient called his at bedside to assist. Patient's states the patient tested positive for Covid- 19 on Jul 24. He has been having symptoms of not feeling well, lightheaded, fatigue, diaphoretic, cough. He states he has been having "sweating episodes" where he feels as if he is having a panic attack. He had nausea and vomiting. He had increased agitation. Brought to the ER for further evaluation. He denies any chest pain, palpitations, dizziness, syncope or near syncope. He denies any history of CAD, DE, stroke, diabetes. He denies any current alcohol use or illicit drug use. His states he asked for a Xanax from the neighbor but did not take one. Overall patient states he feels agitated and confused. DIAGNOSTICS * EKG reveals sinus bradycardia, heart rate 43, first-degree AV block, T-wave inversion in lead III. * Echocardiogram in 2019 revealed EF 5560 percent, mild mitral regurgitation, mild tricuspid regurgitation * Telemetry tracings indicate sinus bradycardia, heart rate 4550s, no high degree AV block noted. * Laboratory reviewed troponin negative 3, TSH within normal limits, sodium 138, potassium 4.8, BUN 13, serum creatinine 0.6, WBC 3.4, hemoglobin 13, platelets 121, triglycerides 88, cholesterol 185, LDL 126, HDL 41 * Current home medications include vitamin D, Zoloft, Prilosec, Narcan, Lasix, liver,, Remeron, Xarelto, Xifaxan REVIEW OF SYSTEMS At the time of my exam: CONSTITUTIONAL: Denies fever or chills. +anxiety, +feels confused +diaphoresis CARDIOVASCULAR: Denies chest pain, shortness of breath, orthopnea, PND or palpitations. RESPIRATORY: + cough. GASTROINTESTINAL: Denies abdominal pain, diarrhea, constipation, nausea or vomiting. MUSCULOSKELETAL: Denies myalgias. NEUROLOGIC: Denies numbness, tingling, headacbe or weakness. ENDOCRINE: Denies fatigue, weight change, polydipsia or polyurina. GENITOURINARY: Denies burning, hematuria or urgency with micturation. HEMATOLOGIC: Denies history of anemia or bleeding. PHYSICAL EXAMINATION Blood pressure 146/96, heart rate 56, afebrile, saturation 100% on room air CONSTITUTIONAL: No apparent distress. HEENT: Head is normocephalic. Pupils are equal, round. Sclerae anicteric. Mucous membranes of the mouth are moist. No JVD. No carotid bruit. CHEST EXAMINATION: Lungs are clear to auscultation. No chest wall tenderness is noted on palpation or with deep breathing. HEART EXAMINATION: Regular rate and rhythm. S1, S2 heard. No murmurs, gallops or rub. ABDOMEN: Soft, nontender. Positive bowel sounds. EXTREMITIES: 2+ peripheral pulses, no lower extremity edema and no calf tenderness. NEUROLOGIC EXAMINATION: Patient is awake, alert and oriented x3. ASSESSMENT Sinus bradycardia, asymptomatic Covid-19 infection, tested positive on 07/24 Symptoms of generalized fatigue, diaphoresis, cough, anxiety History of alcohol abuse Alcoholic cirrhosis Hepatic encephalopathy Chronic nicotine dependence History of depression and anxiety PLAN No further inpatient workup from a cardiology perspective, patient in sinus bradycardia HR 45-50s, no evidence of high degree AV block noted. Orthostatic VS negative. Acute coronary syndrome has been ruled out. Patient's symptoms likely related to covid-19 infection and patient with symptoms of increased anxiety and agitation. Rest of management per primary We will follow the patient as needed. Please reach out with any further questions or concerns. Nurse practitioner note has been reviewed by physician. Signing provider agrees with the documented findings, assessment, and plan of care. Past Medical History Past Medical History: GERD/Reflux, GI Bleed, Liver Disease, Pneumonia, Skin Disorder Additional Past Medical History / Comment(s): Past ETOH abuse-has not drank since 2016, alcoholic liver cirrhosis/portal htn, hepatic encephalopathy, ascites with numerous paracentesis, AMS/high amylase/vented, pancreatitis, upper GI bleed, gastric antral vascular ectasia, pancytopenia r/t cirrhosis, chronic anemia, hiatal hernia, neuropathy bilateral legs/feet and had past sores bilateral feet, chronic back pain. History of Any Multi-Drug Resistant Organisms: None Reported Past Surgical History: Adenoidectomy, Back Surgery, Cholecystectomy, Hernia Repair, Tonsillectomy Additional Past Surgical History / Comment(s): Open heart surgery to remove glass from heart (fell into glass on a door), low back surgery, R inguinal hernia repair, EGD, I&D L foot wound Past Anesthesia/Blood Transfusion Reactions: No Reported Reaction Past Psychological History: No Psychological Hx Reported Smoking Status: Current every day smoker Past Alcohol Use History: None Reported Past Drug Use History: None Reported - Past Family History Father History Unknown: Yes Family Medical History: Dementia Additional Family Medical History / Comment(s): Father is living. Mother Family Medical History: Diabetes Mellitus Additional Family Medical History / Comment(s): Mother is . Medications and Allergies Home Medications Medication Instructions Recorded Confirmed Type Thiamine [Vitamin B-1] 100 mg PO DAILY #30 tab 11/06/16 07/28/22 Rx Folic Acid 1 mg PO DAILY 05/20/18 07/28/22 History Furosemide [Lasix] 20 mg PO DAILY 11/21/19 07/28/22 History Rifaximin [Xifaxan] 550 mg PO BID 11/21/19 07/28/22 History Pregabalin [Lyrica] 200 mg PO TID 02/14/20 07/28/22 History Omeprazole [PriLOSEC] 40 mg PO BID #60 cap 03/19/20 07/28/22 Rx Buprenorphine HCl/Naloxone HCl 1 film SL QID 05/18/20 07/28/22 History [Suboxone 8 mg-2 mg Sl Film] Nicotine 21Mg/24Hr Patch [Habitrol] 1 patch TRANSDERM DAILY #30 patch 05/21/20 07/28/22 Rx Mirtazapine [Remeron] 45 mg PO HS 07/28/22 07/28/22 History Naloxone HCl [Narcan] 4 mg NASAL ONCE PRN 07/28/22 07/28/22 History Rivaroxaban [Xarelto] 2.5 mg PO AC-BID 07/28/22 07/28/22 History Sertraline [Zoloft] 200 mg PO DAILY 07/28/22 07/28/22 History Allergies Allergy/AdvReac Type Severity Reaction Status Date / Time No Known Allergies Allergy Verified 07/28/22 20:37 Physical Exam Vitals: Vital Signs Temp Pulse Resp BP Pulse Ox 07/29/22 05:51 58 L 16 159/88 98 07/28/22 23:53 53 L 18 147/95 95 07/28/22 20:00 44 L 15 123/78 07/28/22 18:21 53 L 18 151/89 98 07/28/22 15:39 97.8 F 62 20 147/90 96 Intake and Output 07/28/22 07/29/22 07/29/22 22:59 06:59 14:59 Other: Weight 112.491 kg Results 07/28/22 16:41 07/28/22 16:41 Cardiac Enzymes 07/28/22 07/28/22 07/28/22 Range/Units 16:41 17:29 20:06 AST 35 (17-59) U/L Troponin I <0.012 <0.012 (0.000-0.034) ng/mL 07/28/22 Range/Units 22:51 AST (17-59) U/L Troponin I <0.012 (0.000-0.034) ng/mL CBC 07/28/22 Range/Units 16:41 WBC 3.4 L (3.8-10.6) k/uL RBC 4.65 (4.30-5.90) m/uL Hgb 13.0 (13.0-17.5) gm/dL Hct 39.3 (39.0-53.0) % Plt Count 121 L (150-450) k/uL Comprehensive Metabolic Panel 07/28/22 Range/Units 16:41 Sodium 138 (137-145) mmol/L Potassium 4.8 (3.5-5.1) mmol/L Chloride 102 (98-107) mmol/L Carbon Dioxide 24 (22-30) mmol/L BUN 13 (9-20) mg/dL Creatinine 0.61 L (0.66-1.25) mg/dL Glucose 172 H (74-99) mg/dL Calcium 8.8 (8.4-10.2) mg/dL AST 35 (17-59) U/L ALT 57 H (4-49) U/L Alkaline Phosphatase 116 (38-126) U/L Total Protein 7.2 (6.3-8.2) g/dL Albumin 4.3 (3.5-5.0) g/dL Current Medications Generic Name Dose Route Start Last Admin Trade Name Freq PRN Reason Stop Dose Admin Lorazepam 0.5 mg 07/28/22 23:55 07/29/22 06:51 Lorazepam 0.5 Mg Tab PO 0.5 mg TID PRN Administration Anxiety Intake and Output 07/28/22 07/29/22 07/29/22 22:59 06:59 14:59 Other: Weight 112.491 kg 07/28/22 16:41 07/28/22 16:41
[2022-07-29] MEDS: NON FORMULARY DRUG (Buprenorphine Hcl/Naloxone Hcl [Suboxone 8 Mg-2 Mg Sl Film] 1 EACH Fil SUBLINGUAL SCH ×2 (12:51→21:21)
[2022-07-29 13:22] LABS: Glucose,Whole Blood 128 mg/dL (70-110)
[2022-07-29] MEDS ORDERED: ACETAMINOPHEN TAB 325 MG TAB PO PRN (14:21)
[2022-07-29] MEDS: RIVAROXABAN 2.5 MG TABLET PO SCH (16:59)
[2022-07-29] MEDS: PREGABALIN 100 MG CAP PO SCH ×2 (17:00→21:19)
[2022-07-29 17:33] LABS: Glucose,Whole Blood 125 mg/dL (70-110)
[2022-07-29 21:06] LABS: Glucose,Whole Blood 117 mg/dL (70-110)
[2022-07-29] MEDS: PANTOPRAZOLE 40 MG TABLET PO SCH (21:19)
[2022-07-29] MEDS: MIRTAZAPINE 45 MG TABLET PO SCH (21:19)
--- NOTE | 2022-07-30 03:59 | HP ---
HISTORY AND PHYSICAL CHIEF COMPLAINT: Weakness, lightheadedness. HISTORY OF PRESENT ILLNESS: This is a first known admission for this 52-year-old male. He presented to the emergency room with weakness and lightheadedness, and he had a pulse around 40, it was sinus. Blood pressure was also low. He denied any chest pain. REVIEW OF SYSTEMS: He has had no neurologic deficits, cough, hemoptysis, angina, orthopnea, PND, abdominal pain, nausea, vomiting, hematemesis, melena, hematochezia, jaundice, hepatitis, cirrhosis, hematuria, frequency, urgency, renal failure, nocturia, incontinence, diabetes, etc. Past medical history, family history, personal and social histories reveal that he has type 2 diabetes, managed with diet control. He is not allergic to any medication. MEDICATIONS: He is on: 1. Seroquel 300 mg at bedtime. 2. Mirtazapine 45 mg at bedtime. 3. Vitamin D3. 4. Nicotine patches. 5. Xifaxan 550 mg twice a day. 6. Suboxone 8/2 one film once a day. 7. Zoloft 100 mg twice a day. 8. Xarelto 2.5 twice a day. 9. Lyrica 200 mg 3 times a day. 10.Omeprazole. 11.Furosemide 20 mg once a day. 12.Folic acid. He has a history of cirrhosis for which he follows with GI. He has had cholecystectomy and appendectomy as well as . He does not smoke any longer. PHYSICAL EXAMINATION: VITAL SIGNS: Blood pressure is 96/55 with a pulse of 46, respirations of 25. He is afebrile. GENERAL: He appeared to be slightly pale and in no acute distress. SKIN: Dry. LYMPH NODES: Not enlarged. HEAD, EARS, EYES, NOSE, MOUTH, AND THROAT: Normal. NECK: Neck veins not distended. Carotids are normal. CHEST: Clear. CARDIAC: Normal except for bradycardia. ABDOMEN: Soft and nontender without any visceromegaly or masses. Bowel sounds are present. EXTREMITIES: Normal. NEUROLOGICAL: He is intact. ASSESSMENT: He is admitted to the hospital with the diagnoses: 1. Hypotension. 2. Bradycardia. 3. Bipolar depression. 4. History of cardiac arrhythmia. 5. History of cirrhosis. 6. Diet-controlled type 2 diabetes. PLAN: 1. Bedrest. 2. IV fluids. 3. Telemetry. 4. Workup bradycardia. SADIA / SANDRA: [id number] /
[2022-07-30] MEDS: NICOTINE 21MG/24HR PATCH TRANSDERM SCH (07:23)
[2022-07-30] MEDS: PANTOPRAZOLE 40 MG TABLET PO SCH ×2 (07:23→21:32)
[2022-07-30] MEDS: SERTRALINE 100 MG TAB PO SCH (07:23)
[2022-07-30] MEDS: PREGABALIN 100 MG CAP PO SCH ×3 (07:23→21:32)
[2022-07-30] MEDS: THIAMINE 100 MG TAB PO SCH (07:23)
[2022-07-30] MEDS: RIVAROXABAN 2.5 MG TABLET PO SCH ×2 (07:23→16:41)
[2022-07-30] MEDS: FOLIC ACID 1 MG TAB PO SCH (07:23)
[2022-07-30] MEDS: LORazepam 0.5 MG TAB PO PRN (07:24)
[2022-07-30 07:38] LABS: Glucose,Whole Blood 132 mg/dL (70-110)
[2022-07-30] MEDS: NON FORMULARY DRUG (Buprenorphine Hcl/Naloxone Hcl [Suboxone 8 Mg-2 Mg Sl Film] 1 EACH Fil SUBLINGUAL SCH ×3 (10:31→21:32)
[2022-07-30 11:34] LABS: Glucose,Whole Blood 134 mg/dL (70-110)
[2022-07-30 12:09] LABS: Appearance,Urine Clear (Clear); Bilirubin,Urine 1+ (Negative); Blood,Urine Negative (Negative); Color,Urine Light Red; Glucose,Urine (UA) Negative (Negative); Ketones,Urine Negative (Negative); Leukocyte Esterase,Urine Negative (Negative); Mucus,Urine Rare /hpf; Nitrite,Urine Negative (Negative); Protein,Urine 1+ (Negative); Specific Gravity,Urine 1.026 (1.001-1.035); WBC,Urine 2 /hpf (0-5)
--- NOTE | 2022-07-30 13:36 | PN ---
PROGRESS NOTE DATE OF SERVICE: 07/29/2022 CHIEF COMPLAINT: Bradycardia. HISTORY OF PRESENT ILLNESS: This gentleman feels well, but he still has bradycardia. Pulse is up in the 50s now. He denies chest pain. PHYSICAL EXAMINATION: CHEST: Clear. CARDIAC: Normal, otherwise. ABDOMEN: Soft, nontender. IMPRESSION: Bradycardia. PLAN: 1. Continue cardiac monitoring. 2. Cardiology consult. MMODL / IJN: [id number] /
[2022-07-30] MEDS: LORazepam 1 MG TAB PO PRN (14:00)
[2022-07-30 16:46] LABS: Basophils % (A) 1 %; Eosinophils # (A) 0.1 k/uL (0-0.7); Eosinophils % (A) 2 %; HCT 43.7 % (39.0-53.0); HGB 14.2 gm/dL (13.0-17.5); Hypochromasia Slight; Lymphocytes # (A) 1.1 k/uL (1.0-4.8); Lymphocytes % (A) 25 %; MCH 27.4 pg (25.0-35.0); MCHC 32.6 g/dL (31.0-37.0); Mean Platelet Volume 9.1; Monocytes # (A) 0.2 k/uL (0-1.0); Monocytes % (A) 6 %; Neutrophils # (A) 2.8 k/uL (1.3-7.7); Neutrophils % (A) 64 %; Platelet Count 151 k/uL (150-450); RDW 14.9 % (11.5-15.5); WBC 4.3 k/uL (3.8-10.6)
[2022-07-30 16:56] LABS: ALT 41 U/L (4-49); AST 42 U/L (17-59); African American GFR (CKD) >90 (>60 ml/min/1.73 sqM); Albumin 4.5 g/dL (3.5-5.0); Albumin/Globulin Ratio 1.6; Alkaline Phosphatase 86 U/L (38-126); Anion Gap 13 mmol/L; Blood Urea Nitrogen 18 mg/dL (9-20); Calcium 9.3 mg/dL (8.4-10.2); Carbon Dioxide 25 mmol/L (22-30); Chloride 102 mmol/L (98-107); Globulin 2.9 g/dL; Glucose 124 mg/dL (74-99); Non-African American GFR(CKD) >90 (>60 ml/min/1.73 sqM); Potassium 4.4 mmol/L (3.5-5.1); Sodium 140 mmol/L (137-145); Total Bilirubin 0.4 mg/dL (0.2-1.3); Total Protein 7.4 g/dL (6.3-8.2)
[2022-07-30 17:51] LABS: Glucose,Whole Blood 106 mg/dL (70-110)
[2022-07-30 20:04] LABS: Glucose,Whole Blood 118 mg/dL (70-110)
[2022-07-30] MEDS: MIRTAZAPINE 45 MG TABLET PO SCH (21:32)
[2022-07-31 06:53] LABS: Glucose,Whole Blood 116 mg/dL (70-110)
[2022-07-31] MEDS: RIVAROXABAN 2.5 MG TABLET PO SCH (08:51)
[2022-07-31] MEDS: THIAMINE 100 MG TAB PO SCH (08:51)
[2022-07-31] MEDS: SERTRALINE 100 MG TAB PO SCH (08:51)
[2022-07-31] MEDS: PREGABALIN 100 MG CAP PO SCH (08:51)
[2022-07-31] MEDS: NON FORMULARY DRUG (Buprenorphine Hcl/Naloxone Hcl [Suboxone 8 Mg-2 Mg Sl Film] 1 EACH Fil SUBLINGUAL SCH ×2 (08:51→15:26)
[2022-07-31] MEDS: FOLIC ACID 1 MG TAB PO SCH (08:51)
[2022-07-31] MEDS: NICOTINE 21MG/24HR PATCH TRANSDERM SCH (08:52)
[2022-07-31] MEDS: PANTOPRAZOLE 40 MG TABLET PO SCH (08:52)
[2022-07-31] MEDS: LORazepam 1 MG TAB PO PRN (09:37)
[2022-07-31 11:59] LABS: Glucose,Whole Blood 99 mg/dL (70-110)
[2022-07-31 13:05] VITALS: BP 115/64; PULSE 67; RESP 14; TEMP 98
--- NOTE | 2022-08-01 12:11 | PN ---
PROGRESS NOTE CHIEF COMPLAINT: Hypotension and bradycardia. HISTORY OF PRESENT ILLNESS: This gentleman is doing well and feeling well. His blood pressure and pulse are back up in the normal range. This morning when he urinated, it was "dark brown." He has had no dysuria, frequency, back pain, lower abdominal pain, etc. PHYSICAL EXAMINATION: CHEST: Clear. CARDIAC EXAM: Normal. ABDOMEN: Soft and nontender. IMPRESSION: 1. Hypotension and bradycardia. 2. Dark urine. PLAN: 1. Repeat UA. 2. Continue cardiac workup. MMODL / IJN: [id number] /
--- NOTE | 2022-08-01 21:08 | DS ---
DISCHARGE SUMMARY CHIEF COMPLAINT: Bradycardia and hypotension. HISTORY OF PRESENT ILLNESS AND PHYSICAL EXAMINATION: Details of this man's history and physical can be found in the initial workup. LABORATORY STUDIES: While he is in the hospital, he had laboratory studies, details of which can be found in the laboratory section of his chart. COURSE IN THE HOSPITAL: After admission, he was placed on bedrest, started on intravenous fluids, and placed on telemetry. His pulse alvin as did his blood pressure and he had no further problems or symptoms. He was seen by Cardiology and cleared. It is felt that he could go home on his usual activity, diet, and medication and will be seen in the office in the next day or 2. FINAL DIAGNOSES: Episode of hypotension and bradycardia, etiology unknown. OPERATIONS: None. CONSULTATION: Cardiology. He is improved. MMNANCY / PRICILAN: [id number] /
== END 2022-07-31 16:40 | disposition home or self-care (01) ==
LOC: EC 15:19 → 6NMEDSUR 19:35
PROVIDERS: ADMIT Family Medicine; ATTEND Family Medicine
DX: I95.9 Hypotension, unspecified (principal); R00.1 Bradycardia, unspecified; U07.1 COVID-19; K21.9 Gastro-esophageal reflux disease without esophagitis; D64.9 Anemia, unspecified; F17.200 Nicotine dependence, unspecified, uncomplicated; I44.0 Atrioventricular block, first degree; K76.82 Hepatic encephalopathy; K70.30 Alcoholic cirrhosis of liver without ascites; E11.42 Type 2 diabetes mellitus with diabetic polyneuropathy; Z79.899 Other long term (current) drug therapy; Z79.4 Long term (current) use of insulin; Z90.49 Acquired absence of other specified parts of digestive tract; Z83.3 Family history of diabetes mellitus; Z82.0 Family history of epilepsy and other diseases of the nervous system; Z79.01 Long term (current) use of anticoagulants
CPT/HCPCS: 96374; 99285; 36415; 93005; 80061; 80053 ×2; 84443; 82140; 83735; 84484; 85025 ×2; 81001; 87635; G0378 ×4; S4990 ×2; J2060

== ENCOUNTER 2022-08-18 09:16 | Emergency (ER) | payer BC ==
[2022-08-18 09:21] VITALS: RESP 16
[2022-08-18] MEDS ORDERED: LIDOCAINE 5% PATCH TOPICAL STA (09:40)
[2022-08-18] MEDS ORDERED: KETOROLAC 15 MG/ML 1 ML VIAL IM STA (09:40)
--- NOTE | 2022-08-18 09:47 | ED ---
General Adult HPI - General Chief complaint: Fall Stated complaint: Fall, Rib Pain Time Seen by Provider: 08/18/22 09:23 Source: patient, RN notes reviewed, old records reviewed Mode of arrival: wheelchair Limitations: no limitations - History of Present Illness Initial comments: Patient is a 52-year-old male with past medical history remarkable for diabetes, acid reflux, liver disease, right foot sores seen wound care clinic wearing an Aircast who presents emergency Department following a mechanical fall last night. Patient states he was moving with this cast on when he tripped on his cast and fell to the left side landing on the corner of the couch with his left ribs. States he has some left-sided anterior rib pain as well as left lower back pain. Denies hitting his head. Denies loss of consciousness. Denies being on blood thinners. No other injuries. No nausea or vomiting. No diarrhea. No chest pain otherwise. No shortness of breath. Presents over concern for possible rib or back injury. - Related Data Home Medications Medication Instructions Recorded Confirmed Folic Acid 1 mg PO DAILY 05/20/18 07/28/22 Furosemide [Lasix] 20 mg PO DAILY 11/21/19 07/28/22 Rifaximin [Xifaxan] 550 mg PO BID 11/21/19 07/28/22 Pregabalin [Lyrica] 200 mg PO TID 02/14/20 07/28/22 Buprenorphine HCl/Naloxone HCl 1 film SL QID 05/18/20 07/28/22 [Suboxone 8 mg-2 mg Sl Film] Mirtazapine [Remeron] 45 mg PO HS 07/28/22 07/28/22 Naloxone HCl [Narcan] 4 mg NASAL ONCE PRN 07/28/22 07/28/22 Rivaroxaban [Xarelto] 2.5 mg PO AC-BID 07/28/22 07/28/22 Sertraline [Zoloft] 200 mg PO DAILY 07/28/22 07/28/22 Previous Rx's Medication Instructions Recorded Thiamine [Vitamin B-1] 100 mg PO DAILY #30 tab 11/06/16 Omeprazole [PriLOSEC] 40 mg PO BID #60 cap 03/19/20 Nicotine 21Mg/24Hr Patch [Habitrol] 1 patch TRANSDERM DAILY #30 patch 05/21/20 Lidocaine 5% Patch [Lidoderm 5% 1 patch TOPICAL DAILY PRN 10 Days 08/18/22 Patch] #10 patch Allergies Allergy/AdvReac Type Severity Reaction Status Date / Time No Known Allergies Allergy Verified 08/18/22 09:19 Review of Systems ROS Statement: Those systems with pertinent positive or pertinent negative responses have been documented in the HPI. Review of Systems: CONST: Denies fever EYES: Denies blurry vision ENT: Denies nasal congestion C/V: Denies Chest pain RESP: Denies shortness of breath GI: Denies abdominal pain : Denies dysuria SKIN: Denies rash. MSK: Endorses lower back pain, rib pain NEURO: Denies headache ROS Other: All systems not noted in ROS Statement are negative. Past Medical History Past Medical History: GERD/Reflux, GI Bleed, Liver Disease, Pneumonia, Skin Disorder Additional Past Medical History / Comment(s): Past ETOH abuse-has not drank since 2016, alcoholic liver cirrhosis/portal htn, hepatic encephalopathy, ascites with numerous paracentesis, AMS/high amylase/vented, pancreatitis, upper GI bleed, gastric antral vascular ectasia, pancytopenia r/t cirrhosis, chronic anemia, hiatal hernia, neuropathy bilateral legs/feet and had past sores bilateral feet, chronic back pain. History of Any Multi-Drug Resistant Organisms: None Reported Past Surgical History: Adenoidectomy, Back Surgery, Cholecystectomy, Hernia Repair, Tonsillectomy Additional Past Surgical History / Comment(s): Open heart surgery to remove glass from heart (fell into glass on a door), low back surgery, R inguinal hernia repair, EGD, I&D L foot wound Past Anesthesia/Blood Transfusion Reactions: No Reported Reaction Past Psychological History: No Psychological Hx Reported Smoking Status: Current every day smoker Past Alcohol Use History: None Reported Past Drug Use History: None Reported - Past Family History Father History Unknown: Yes Family Medical History: Dementia Additional Family Medical History / Comment(s): Father is living. Mother Family Medical History: Diabetes Mellitus Additional Family Medical History / Comment(s): Mother is . General Exam - General Exam Comments Initial Comments: General: Appears in no acute distress. HEAD: Normal with no signs of head trauma. EYES: PERRLA, EOMI, conjunctiva normal, no discharge. ENT: Hearing grossly intact, normal oropharynx. RESPIRATORY: Clear breath sounds bilaterally. No wheezes, rales, or rhonchi. C/V: Regular rate and rhythm. S1 and S2 auscultated, no edema, peripheral pulses 2+ and intact throughout ABD: Abd is soft, nontender, nondistended EXT: No midline cervical or thoracic spine tenderness to palpation. Very mild midline lumbar spine tenderness palpation in the mid spine. Primarily left paraspinal muscle tenderness to palpation. Patient also has left-sided anterior inferior rib tenderness to palpation. No obvious step-offs or deformities palpated. Pelvis is stable. SKIN: No rashes or lesions observed on exposed skin. NEURO: Alert and oriented 4. Limitations: no limitations Course Vital Signs 08/18/22 08/18/22 09:19 10:48 Temperature 98.5 F 98 F Pulse Rate 65 75 Respiratory 16 16 Rate Blood Pressure 95/64 100/72 O2 Sat by Pulse 100 98 Oximetry Medical Decision Making - Medical Decision Making Based on the patient's presentation and physical exam, I discussed with him I'm concerned for musculoskeletal injury from the fall. We will obtain x-rays of the lower back as well as chest. He'll be given a lidocaine patch as well as Toradol injection. He was in agreement with this plan. Vital signs are within acceptable limits. Patient's x-rays returned an x-ray of the lower spine was unremarkable. Left sided chest x-ray did reveal 2 posterior rib fractures that are minimally displaced is interpreted by myself. No suspicious acute pulmonary process. No suspicious focal airspace opacity. No signs of pneumothorax. I updated the patient. He expressed understanding. Patient will be discharged home with pain control, incentive spirometer. He is on Suboxone at home in refuses any narcotic medication. He will be given prescriptions for lidocaine patches. He will be given incense rounder prior to discharge. Strict return precautions were discussed. I will provide the patient with a prescription for lidocaine patch. I instructed the patient to follow up with their PCP in the next 1-3 days. I explained that the patient should return to the emergency department if they experience any worsening symptoms. Strict return precautions were discussed with the patient. The patient expressed understanding of these instructions. I answered all questions that the patient had. The patient was discharged home in good condition with their prescriptions and follow up information. Disposition Clinical Impression: Fall, Rib fracture Disposition: HOME SELF-CARE Condition: Good Instructions (If sedation given, give patient instructions): How to Use an Incentive Spirometer (ED), Rib Fracture (ED), Fall Prevention (ED) Prescriptions: Lidocaine 5% Patch [Lidoderm 5% Patch] 1 patch TOPICAL DAILY PRN 10 Days #10 patch PRN Reason: Pain Is patient prescribed a controlled substance at d/c from ED?: No Referrals: Jesus Verduzco MD [Primary Care Provider] - 1-2 days Time of Disposition: 10:40
--- NOTE | 2022-08-18 10:21 | XR ---
EXAMINATION TYPE: XR ribs LT w pa chest xray DATE OF EXAM: 08/18/2022 CLINICAL HISTORY: Chest and left-sided rib pain after injury. TECHNIQUE: Single frontal view of the chest is obtained. A frontal and oblique images of the left-rayshawn ed ribs. COMPARISON: Chest x-ray May 19, 2020 and older studies. FINDINGS: There are chronic changes bilaterally without suspicious focal air space opacity or pneumo thorax seen. Stable small to tiny bilateral pleural effusions and/or pleural thickening. The cardiac silhouette size is stable and within normal limits. Multilevel spurring in thoracic spine redemonstr ated. Cholecystectomy clips are noted. There are acute displaced fractures involving the posterior fifth and sixth ribs. IMPRESSION: 1. Acute displaced fractures involving the posterior right fifth and sixth ribs. 2. Chronic changes without suspicious new acute pulmonary process.
--- NOTE | 2022-08-18 10:22 | XR ---
EXAMINATION TYPE: XR lumbar spine 2 or 3V DATE OF EXAM: 08/18/2022 CLINICAL HISTORY: Pain after injury. TECHNIQUE: Frontal and lateral images of the lumbar spine are obtained. COMPARISON: None FINDINGS: There are 5 lumbar type vertebral bodies identified. The lumbar spine shows satisfactory alignment without evidence of acute fracture or dislocation. Moderate to severe disc space narrowing and moderate spurring L5-S1 level otherwise vertebral body heights and disk space heights are within normal limits. Overlying Cholecystectomy clips are seen. IMPRESSION: No acute fracture or dislocation is seen in the lumbar spine.
[2022-08-18 10:49] VITALS: BP 100/72; PULSE 75; TEMP 98
== END 2022-08-18 10:48 | disposition home or self-care (01) ==
LOC: EC 09:16
DX: S22.41XA Multiple fractures of ribs, right side, initial encounter for closed fracture (principal); K21.9 Gastro-esophageal reflux disease without esophagitis; F17.200 Nicotine dependence, unspecified, uncomplicated; Z79.01 Long term (current) use of anticoagulants; Z79.899 Other long term (current) drug therapy; W01.0XXA Fall on same level from slipping, tripping and stumbling without subsequent striking against object, initial encounter
CPT/HCPCS: 71101; 72100; 99284; J1885

== ENCOUNTER 2022-08-21 11:36 | Inpatient (IN) | payer BC ==
--- NOTE | 2022-08-21 12:12 | ED ---
General Adult HPI - General Chief complaint: Overdose Stated complaint: Overdose Time Seen by Provider: 08/21/22 11:56 Source: patient, family Mode of arrival: wheelchair Limitations: no limitations - History of Present Illness Initial comments: Dictation was produced using [employer] dictation software. please excuse any grammatical, word or spelling errors. Chief Complaint: 52-year-old male brought in by sister and for suspected Ativan overdose History of Present Illness: Patient 52-year-old male he was seen in emergency department 1 week ago. Patient presented on August 18 for Fall. He was discharged at this time. One week ago patient was prescribed 90 tablets of Ativan. Family noticed that for the last 3 days she's been very sleepy. Patient denies any suicidal or homicidal ideation. Patient does not recall overdosing on any of his medications. Denies any acute complaints today. Family checked on his pill bottle and noticed her only 3 tablets left. Suspected that patient took 87 tablets over the course of 1 week. Advise prescribed by patient's primary care doctor. The ROS documented in this emergency department record has been reviewed and confirmed by me. Those systems with pertinent positive or negative responses have been documented in the HPI. All other systems are other negative and/or noncontributory. PHYSICAL EXAM: General Impression: Alert and oriented x3, not in acute distress, somnolent but arousable HEENT: Normocephalic atraumatic, extra-ocular movements intact, pupils equal and reactive to light bilaterally, mucous membranes moist. Cardiovascular: Heart regular rate and rhythm Chest: Able to complete full sentences, no retractions, no tachypnea Abdomen: abdomen soft, non-tender, non-distended, no organomegaly Musculoskeletal: Pulses present and equal in all extremities, no peripheral edema Motor: no focal deficits noted Neurological: CN II-XII grossly intact, no focal motor or sensory deficits noted Skin: Intact with no visualized rashes Psych: Normal affect and mood ED course: 52-year-old male presents emergency department for suspected overdose of Ativan. Signs upon arrival are within acceptable limits. Patient somnolent but arousable and interactive. Laboratory evaluation obtained. CBC, coag panel, metabolic panel is unremarkable. No acidosis. Tox labs are negative. No osmolar gap. Urinalysis positive for opiates, benzodiazepines and marijuana. Computed tomography scan of the brain is unremarkable. Patient remembered at bedside at 2:16 PM found to be in stable medical condition. He still however very somnolent. At this point there is no obvious reason however it's likely that patient still benzodiazepine toxic. Patient be admitted for monitoring. Patient admitted with consultation to psychiatry for medication overdose. My EKG interpretation: Ventricular rate 42, sinus bradycardia,. 137, QS 1, QTC 367. No DE prolongation, no QTC prolongation, no ST or T-wave changes noted. EKG compared to 07/28/2022 showing no changes. Overall, this EKG is unremarkable - Related Data Home Medications Medication Instructions Recorded Confirmed Folic Acid 1 mg PO DAILY 05/20/18 08/21/22 Furosemide [Lasix] 20 mg PO DAILY 11/21/19 08/21/22 Rifaximin [Xifaxan] 550 mg PO BID 11/21/19 08/21/22 Pregabalin [Lyrica] 200 mg PO TID 02/14/20 08/21/22 Buprenorphine HCl/Naloxone HCl 1 film SL QID 05/18/20 08/21/22 [Suboxone 8 mg-2 mg Sl Film] Mirtazapine [Remeron] 45 mg PO HS 07/28/22 08/21/22 Naloxone HCl [Narcan] 4 mg NASAL ONCE PRN 07/28/22 08/21/22 Rivaroxaban [Xarelto] 2.5 mg PO AC-BID 07/28/22 08/21/22 Sertraline [Zoloft] 200 mg PO DAILY 07/28/22 08/21/22 LORazepam [Ativan] 2 mg PO TID PRN 08/21/22 08/21/22 Levofloxacin [Levaquin] 500 mg PO DAILY 08/21/22 08/21/22 Previous Rx's Medication Instructions Recorded Thiamine [Vitamin B-1] 100 mg PO DAILY #30 tab 11/06/16 Omeprazole [PriLOSEC] 40 mg PO BID #60 cap 03/19/20 Nicotine 21Mg/24Hr Patch [Habitrol] 1 patch TRANSDERM DAILY #30 patch 05/21/20 Lidocaine 5% Patch [Lidoderm 5% 1 patch TOPICAL DAILY PRN 10 Days 08/18/22 Patch] #10 patch Allergies Allergy/AdvReac Type Severity Reaction Status Date / Time No Known Allergies Allergy Verified 08/21/22 11:43 Review of Systems ROS Statement: Those systems with pertinent positive or pertinent negative responses have been documented in the HPI. ROS Other: All systems not noted in ROS Statement are negative. Past Medical History Past Medical History: GERD/Reflux, GI Bleed, Liver Disease, Pneumonia, Skin Disorder Additional Past Medical History / Comment(s): Past ETOH abuse-has not drank since 2016, alcoholic liver cirrhosis/portal htn, hepatic encephalopathy, ascites with numerous paracentesis, AMS/high amylase/vented, pancreatitis, upper GI bleed, gastric antral vascular ectasia, pancytopenia r/t cirrhosis, chronic anemia, hiatal hernia, neuropathy bilateral legs/feet and had past sores bilateral feet, chronic back pain. History of Any Multi-Drug Resistant Organisms: None Reported Past Surgical History: Adenoidectomy, Back Surgery, Cholecystectomy, Hernia Repair, Tonsillectomy Additional Past Surgical History / Comment(s): Open heart surgery to remove glass from heart (fell into glass on a door), low back surgery, R inguinal hernia repair, EGD, I&D L foot wound Past Anesthesia/Blood Transfusion Reactions: No Reported Reaction Past Psychological History: No Psychological Hx Reported Smoking Status: Current every day smoker, Vaper Past Alcohol Use History: None Reported Past Drug Use History: None Reported - Past Family History Father History Unknown: Yes Family Medical History: Dementia Additional Family Medical History / Comment(s): Father is living. Mother Family Medical History: Diabetes Mellitus Additional Family Medical History / Comment(s): Mother is . General Exam Limitations: no limitations Course Vital Signs 08/21/22 08/21/22 11:40 12:56 Temperature 98.7 F Pulse Rate 50 L 45 L Respiratory 16 18 Rate Blood Pressure 107/71 100/76 O2 Sat by Pulse 96 97 Oximetry Medical Decision Making - Lab Data Result diagrams: 08/21/22 12:28 08/21/22 12:28 Lab Results 08/21/22 08/21/22 08/21/22 Range/Units 12:28 12:28 12:28 WBC 5.9 (3.8-10.6) k/uL RBC 4.54 (4.30-5.90) m/uL Hgb 12.8 L (13.0-17.5) gm/dL Hct 38.6 L (39.0-53.0) % MCV 85.0 (80.0-100.0) fL MCH 28.2 (25.0-35.0) pg MCHC 33.1 (31.0-37.0) g/dL RDW 16.0 H (11.5-15.5) % Plt Count 125 L (150-450) k/uL MPV 9.2 Neutrophils % 71 % Lymphocytes % 18 % Monocytes % 5 % Eosinophils % 3 % Basophils % 1 % Neutrophils # 4.2 (1.3-7.7) k/uL Lymphocytes # 1.1 (1.0-4.8) k/uL Monocytes # 0.3 (0-1.0) k/uL Eosinophils # 0.2 (0-0.7) k/uL Basophils # 0.0 (0-0.2) k/uL Hypochromasia Slight PT 10.0 (9.0-12.0) sec INR 0.9 (<1.2) APTT 27.0 (22.0-30.0) sec Sodium (137-145) mmol/L Potassium (3.5-5.1) mmol/L Chloride (98-107) mmol/L Carbon Dioxide (22-30) mmol/L Anion Gap mmol/L BUN (9-20) mg/dL Creatinine (0.66-1.25) mg/dL Est GFR (CKD-EPI)AfAm (>60 ml/min/1.73 sqM) Est GFR (CKD-EPI)NonAf (>60 ml/min/1.73 sqM) Glucose (74-99) mg/dL Osmolality (280-301) mosm/kg Plasma Lactic Acid Abhijit (0.7-2.0) mmol/L Calcium (8.4-10.2) mg/dL Magnesium (1.6-2.3) mg/dL Total Bilirubin (0.2-1.3) mg/dL AST (17-59) U/L ALT (4-49) U/L Alkaline Phosphatase (38-126) U/L Ammonia (<30) umol/L Troponin I (0.000-0.034) ng/mL Total Protein (6.3-8.2) g/dL Albumin (3.5-5.0) g/dL Urine Color Light Yellow Urine Appearance Clear (Clear) Urine pH 7.5 (5.0-8.0) Ur Specific [place] 1.010 (1.001-1.035) Urine Protein Negative (Negative) Urine Glucose (UA) Negative (Negative) Urine Ketones Negative (Negative) Urine Blood Negative (Negative) Urine Nitrite Negative (Negative) Urine Bilirubin Negative (Negative) Urine Urobilinogen <2.0 (<2.0) mg/dL Ur Leukocyte Esterase Negative (Negative) Salicylates mg/dL Urine Opiates Screen Detected H (NotDetected) Ur Oxycodone Screen Not Detected (NotDetected) Urine Methadone Screen Not Detected (NotDetected) Ur Propoxyphene Screen Not Detected (NotDetected) Acetaminophen ug/mL Ur Barbiturates Screen Not Detected (NotDetected) U Tricyclic Antidepress Not Detected (NotDetected) Ur Phencyclidine Scrn Not Detected (NotDetected) Ur Amphetamines Screen Not Detected (NotDetected) U Methamphetamines Scrn Not Detected (NotDetected) U Benzodiazepines Scrn Detected H (NotDetected) Urine Cocaine Screen Not Detected (NotDetected) U Marijuana (THC) Screen Detected H (NotDetected) Serum Alcohol mg/dL 08/21/22 08/21/22 08/21/22 Range/Units 12:28 12:28 12:28 WBC (3.8-10.6) k/uL RBC (4.30-5.90) m/uL Hgb (13.0-17.5) gm/dL Hct (39.0-53.0) % MCV (80.0-100.0) fL MCH (25.0-35.0) pg MCHC (31.0-37.0) g/dL RDW (11.5-15.5) % Plt Count (150-450) k/uL MPV Neutrophils % % Lymphocytes % % Monocytes % % Eosinophils % % Basophils % % Neutrophils # (1.3-7.7) k/uL Lymphocytes # (1.0-4.8) k/uL Monocytes # (0-1.0) k/uL Eosinophils # (0-0.7) k/uL Basophils # (0-0.2) k/uL Hypochromasia PT (9.0-12.0) sec INR (<1.2) APTT (22.0-30.0) sec Sodium 139 (137-145) mmol/L Potassium 5.2 H (3.5-5.1) mmol/L Chloride 101 (98-107) mmol/L Carbon Dioxide 31 H (22-30) mmol/L Anion Gap 7 mmol/L BUN 25 H (9-20) mg/dL Creatinine 0.90 (0.66-1.25) mg/dL Est GFR (CKD-EPI)AfAm >90 (>60 ml/min/1.73 sqM) Est GFR (CKD-EPI)NonAf >90 (>60 ml/min/1.73 sqM) Glucose 103 H (74-99) mg/dL Osmolality 298 (280-301) mosm/kg Plasma Lactic Acid Abhijit 1.1 (0.7-2.0) mmol/L Calcium 9.4 (8.4-10.2) mg/dL Magnesium 2.2 (1.6-2.3) mg/dL Total Bilirubin 0.4 (0.2-1.3) mg/dL AST 28 (17-59) U/L ALT 24 (4-49) U/L Alkaline Phosphatase 113 (38-126) U/L Ammonia 20 (<30) umol/L Troponin I <0.012 (0.000-0.034) ng/mL Total Protein 7.4 (6.3-8.2) g/dL Albumin 4.6 (3.5-5.0) g/dL Urine Color Urine Appearance (Clear) Urine pH (5.0-8.0) Ur Specific [place] (1.001-1.035) Urine Protein (Negative) Urine Glucose (UA) (Negative) Urine Ketones (Negative) Urine Blood (Negative) Urine Nitrite (Negative) Urine Bilirubin (Negative) Urine Urobilinogen (<2.0) mg/dL Ur Leukocyte Esterase (Negative) Salicylates <1.0 mg/dL Urine Opiates Screen (NotDetected) Ur Oxycodone Screen (NotDetected) Urine Methadone Screen (NotDetected) Ur Propoxyphene Screen (NotDetected) Acetaminophen <10.0 ug/mL Ur Barbiturates Screen (NotDetected) U Tricyclic Antidepress (NotDetected) Ur Phencyclidine Scrn (NotDetected) Ur Amphetamines Screen (NotDetected) U Methamphetamines Scrn (NotDetected) U Benzodiazepines Scrn (NotDetected) Urine Cocaine Screen (NotDetected) U Marijuana (THC) Screen (NotDetected) Serum Alcohol <10 mg/dL Disposition Clinical Impression: Accidental drug overdose Disposition: ADMITTED IP TO THIS [facility] Condition: Fair Referrals: Jesus Verduzco MD [Primary Care Provider] - 1-2 days Decision Time: 14:18
[2022-08-21 12:40] LABS: Basophils % (A) 1 %; Eosinophils # (A) 0.2 k/uL (0-0.7); Eosinophils % (A) 3 %; HCT 38.6 % (39.0-53.0); HGB 12.8 gm/dL (13.0-17.5); Hypochromasia Slight; Lymphocytes # (A) 1.1 k/uL (1.0-4.8); Lymphocytes % (A) 18 %; MCH 28.2 pg (25.0-35.0); MCHC 33.1 g/dL (31.0-37.0); Mean Platelet Volume 9.2; Monocytes # (A) 0.3 k/uL (0-1.0); Monocytes % (A) 5 %; Neutrophils # (A) 4.2 k/uL (1.3-7.7); Neutrophils % (A) 71 %; Platelet Count 125 k/uL (150-450); RBC 4.54 m/uL (4.30-5.90); WBC 5.9 k/uL (3.8-10.6)
[2022-08-21 12:50] LABS: ALT 24 U/L (4-49); AST 28 U/L (17-59); Acetaminophen <10.0 ug/mL; African American GFR (CKD) >90 (>60 ml/min/1.73 sqM); Albumin 4.6 g/dL (3.5-5.0); Alcohol <10 mg/dL; Alkaline Phosphatase 113 U/L (38-126); Anion Gap 7 mmol/L; Blood Urea Nitrogen 25 mg/dL (9-20); Calcium 9.4 mg/dL (8.4-10.2); Carbon Dioxide 31 mmol/L (22-30); Chloride 101 mmol/L (98-107); Glucose 103 mg/dL (74-99); Lactic Acid, Venous 1.1 mmol/L (0.7-2.0); Magnesium 2.2 mg/dL (1.6-2.3); Non-African American GFR(CKD) >90 (>60 ml/min/1.73 sqM); Potassium 5.2 mmol/L (3.5-5.1); Salicylate <1.0 mg/dL; Sodium 139 mmol/L (137-145); Total Bilirubin 0.4 mg/dL (0.2-1.3); Total Protein 7.4 g/dL (6.3-8.2)
[2022-08-21 12:52] LABS: INR 0.9 (<1.2)
[2022-08-21 12:58] LABS: Appearance,Urine Clear (Clear); Bilirubin,Urine Negative (Negative); Blood,Urine Negative (Negative); Color,Urine Light Yellow; Glucose,Urine (UA) Negative (Negative); Ketones,Urine Negative (Negative); Leukocyte Esterase,Urine Negative (Negative); Nitrite,Urine Negative (Negative); PH, Urine 7.5 (5.0-8.0); Protein,Urine Negative (Negative); Urobilinogen,Urine <2.0 mg/dL (<2.0)
[2022-08-21 13:09] LABS: Cocaine Screen,Urine Not Detected (NotDetected); Phencyclidine Screen,Urine Not Detected (NotDetected); Urn Cannabinoid Scrn Detected (NotDetected)
[2022-08-21 13:10] LABS: Amphetamine Screen,Urine Not Detected (NotDetected); Barbiturate Screen,Urine Not Detected (NotDetected); Benzodiazepines Screen,Urine Detected (NotDetected); Methadone Screen, Urine Not Detected (NotDetected); Opiate Screen,Urine Detected (NotDetected); Oxycodone Screen, Urine Not Detected (NotDetected); Tricyclic Antidepressant,Urine Not Detected (NotDetected)
--- NOTE | 2022-08-21 13:26 | CT ---
EXAMINATION TYPE: CT brain wo con CT DLP: 1099.4 mGycm, Automated exposure control for dose reduction was used. DATE OF EXAM: 08/21/2022 1:19 PM COMPARISON: Prior CT Brain from 04/29/2018 . CLINICAL INDICATION:Male, 52 years old with history of ams, Altered mental status TECHNIQUE: Brain: Multiple axial CT images of the brain were obtained without IV contrast. Coronal and sagittal reformats reviewed. FINDINGS: Brain: Extra-axial spaces: No abnormal extra-axial fluid collections. Ventricular system: Within normal limits Cerebral parenchyma: No acute intraparenchymal hemorrhage or mass effect. The mackey-white junction is well differentiated. Cerebellum: Unremarkable. Mass effect: No evidence of midline shift. Intracranial vasculature: Atherosclerotic calcifications of the intracranial vessels. Soft tissues: Normal. Calvarium/osseous structures: No depressed skull fracture. Paranasal sinuses and mastoid air cells: Mild scattered paranasal sinus disease. Visualized orbits: Orbital contents are intact. IMPRESSION: No acute intracranial process. No significant change from prior examination.
[2022-08-21] MEDS ORDERED: SODIUM CHLORIDE 0.9% 1,000 ML IV ONE (13:36)
[2022-08-21] MEDS ORDERED: NALOXONE 0.4 MG/ML 1 ML VIAL IV PRN (14:14)
[2022-08-21] MEDS: SODIUM CHLORIDE 0.9% 1,000 ML IV SCH (15:12)
--- NOTE | 2022-08-22 00:59 | HP ---
HISTORY AND PHYSICAL CHIEF COMPLAINT: Lethargy and Ativan overdose. HISTORY OF PRESENT ILLNESS: This is another admission for this 52-year-old white male. He came to emergency room very lethargic. It was presumed that he had overdosed on Ativan. There were no other details available. It is not known if this was accidental or intentional. REVIEW OF SYSTEMS: Unobtainable. Past medical history, family history, personal and social histories reveal that he is alert. He is not allergic to any medication. MEDICATIONS: He takes: 1. Ativan 2 mg t.i.d. p.r.n. 2. Mirtazapine 45 mg at bedtime. 3. Vitamin D. 4. Nicotine patch. 5. Xifaxan 550 mg twice a day. 6. Suboxone sublingual films 05/13 once a day. 7. Zoloft 100 mg twice a day. 8. Vitamin D1. 9. Lyrica 200 mg 3 times a day. 10.Omeprazole 40 mg twice a day. 11.Furosemide 20 mg once a day. 12.Folic acid 1 mg once a day. The remainder of the history is unremarkable. PHYSICAL EXAMINATION: VITAL SIGNS: Blood pressure is 115/70 with a pulse of 69, respirations of 15, and he is afebrile. GENERAL: He appeared to be slightly pale. He is very lethargic. HEAD, EARS, EYES, NOSE, MOUTH AND THROAT: Grossly normal. LUNGS: Breath sounds are heard on both sides. CARDIAC: Normal with sinus rhythm. ABDOMEN: Soft. EXTREMITIES: Normal. IMPRESSION: 1. Overdose of Ativan. 2. Mental status changes. 3. History of narcotic abuse. 4. History of diabetes mellitus. PLAN: 1. Bedrest. 2. IV fluids. 3. Withhold medication. 4. Monitor vital signs and neurologic status. 5. Psych consult. MMODL / IJN: [id number] /
[2022-08-22] MEDS: SODIUM CHLORIDE 0.9% 1,000 ML IV SCH ×3 (06:26→16:53)
[2022-08-22] MEDS ORDERED: NICOTINE 21MG/24HR PATCH TRANSDERM SCH (10:00)
--- NOTE | 2022-08-22 13:26 | P.CRDCN ---
History of Present Illness History of present illness: HISTORY OF PRESENTING ILLNESS Patient is pleasant 52-year-old male with partial history of prior liver cirrhosis, previous alcohol use, asymptomatic bradycardia, on Suboxone who presents secondary altered mental status. Patient was started on Ativan 2 days ago and believes he accidentally took too much Ativan. He denies any suicidal ideation. Denies any chest pain or pressure or lightheadedness. He was found to have low heart rates in the higher 30s to 40s with sinus rhythm and therefore cardiology was consult it. He denies previously seen a wire galvanizer. He is on Xarelto 2.5 mg twice a day dosing apparently for TD however denies any significant history of lower extremity stenoses. Currently feels better other than needing his Suboxone. Denies any lightheadedness or dizziness. States he has never had syncopal episode in the past. REVIEW OF SYSTEMS At the time of my exam: CONSTITUTIONAL: Denies fever or chills. CARDIOVASCULAR: Denies chest pain, shortness of breath, orthopnea, PND or palpitations. RESPIRATORY: Denies cough. GASTROINTESTINAL: Denies abdominal pain, diarrhea, constipation, nausea or vomiting. MUSCULOSKELETAL: Denies myalgias. NEUROLOGIC: Denies numbness, tingling or weakness. ENDOCRINE: Denies fatigue, weight change, polydipsia or polyurina. GENITOURINARY: Denies burning, hematuria or urgency with micturation. HEMATOLOGIC: Denies history of anemia or bleeding. PHYSICAL EXAMINATION Vital signs reviewed. CONSTITUTIONAL: No apparent distress. HEENT: Head is normocephalic. Pupils are equal, round. Sclerae anicteric. Mucous membranes of the mouth are moist. No JVD. No carotid bruit. CHEST EXAMINATION: Lungs are clear to auscultation. No chest wall tenderness is noted on palpation or with deep breathing. HEART EXAMINATION: Regular rate and rhythm. S1, S2 heard. No murmurs, gallops or rub. ABDOMEN: Soft, nontender. Positive bowel sounds. EXTREMITIES: 2+ peripheral pulses, no lower extremity edema and no calf tenderness. NEUROLOGIC EXAMINATION: Patient is awake, alert and oriented x3. ASSESSMENT 1. Asymptomatic sinus bradycardia likely related to drug overdose, altered mental status while he was sleeping 2. Altered mental status related to accidental Ativan overdose 3. Previous alcohol abuse PLAN Patient's heart rates have improved into the 50s. Do not see any current need for pacemaker. Continue to hold any AV maynor blocking agents. Check TSH for completeness. Check 2-D echo. Further recommendations to follow. Past Medical History Past Medical History: GERD/Reflux, GI Bleed, Liver Disease, Pneumonia, Skin Disorder Additional Past Medical History / Comment(s): Past ETOH abuse-has not drank since 2016, alcoholic liver cirrhosis/portal htn, hepatic encephalopathy, ascites with numerous paracentesis, AMS/high amylase/vented, pancreatitis, upper GI bleed, gastric antral vascular ectasia, pancytopenia r/t cirrhosis, chronic anemia, hiatal hernia, neuropathy bilateral legs/feet and had past sores bilateral feet, chronic back pain. History of Any Multi-Drug Resistant Organisms: None Reported Past Surgical History: Adenoidectomy, Back Surgery, Cholecystectomy, Hernia Repair, Tonsillectomy Additional Past Surgical History / Comment(s): Open heart surgery to remove glass from heart (fell into glass on a door), low back surgery, R inguinal hernia repair, EGD, I&D L foot wound Past Anesthesia/Blood Transfusion Reactions: No Reported Reaction Past Psychological History: No Psychological Hx Reported Additional Psychological History / Comment(s): Pt resides with his spouse. He uses a walker. He can drive but not often. Smoking Status: Current every day smoker, Vaper Past Alcohol Use History: None Reported Additional Past Alcohol Use History / Comment(s): STARTED SMOKING IN 1996, SMOKED 1PPD QUIT 01/07/17, PAST DAILY ETOH-QUIT SEP 2016 currently vaping only Past Drug Use History: None Reported Additional Drug Use History / Comment(s): previous opiate dependance many yrs ago, currently uses suboxone - Past Family History Father History Unknown: Yes Family Medical History: Dementia Additional Family Medical History / Comment(s): Father is living. Mother Family Medical History: Diabetes Mellitus Additional Family Medical History / Comment(s): Mother is . Medications and Allergies Home Medications Medication Instructions Recorded Confirmed Type Thiamine [Vitamin B-1] 100 mg PO DAILY #30 tab 11/06/16 08/21/22 Rx Folic Acid 1 mg PO DAILY 05/20/18 08/21/22 History Furosemide [Lasix] 20 mg PO DAILY 11/21/19 08/21/22 History Rifaximin [Xifaxan] 550 mg PO BID 11/21/19 08/21/22 History Pregabalin [Lyrica] 200 mg PO TID 02/14/20 08/21/22 History Omeprazole [PriLOSEC] 40 mg PO BID #60 cap 03/19/20 08/21/22 Rx Buprenorphine HCl/Naloxone HCl 1 film SL QID 05/18/20 08/21/22 History [Suboxone 8 mg-2 mg Sl Film] Nicotine 21Mg/24Hr Patch [Habitrol] 1 patch TRANSDERM DAILY #30 patch 05/21/20 08/21/22 Rx Mirtazapine [Remeron] 45 mg PO HS 07/28/22 08/21/22 History Naloxone HCl [Narcan] 4 mg NASAL ONCE PRN 07/28/22 08/21/22 History Rivaroxaban [Xarelto] 2.5 mg PO AC-BID 07/28/22 08/21/22 History Sertraline [Zoloft] 200 mg PO DAILY 07/28/22 08/21/22 History Lidocaine 5% Patch [Lidoderm 5% 1 patch TOPICAL DAILY PRN 10 Days 08/18/22 08/21/22 Rx Patch] #10 patch LORazepam [Ativan] 2 mg PO TID PRN 08/21/22 08/21/22 History Levofloxacin [Levaquin] 500 mg PO DAILY 08/21/22 08/21/22 History Allergies Allergy/AdvReac Type Severity Reaction Status Date / Time No Known Allergies Allergy Verified 08/21/22 11:43 Physical Exam Vitals: Vital Signs Temp Pulse Pulse Resp BP BP Pulse Ox 08/22/22 12:00 98.2 F 52 L 16 132/72 92 L 08/22/22 08:00 97.9 F 47 L 16 124/71 95 08/22/22 04:00 97.8 F 46 L 19 123/79 93 L 08/22/22 00:00 97.5 F L 49 L 19 109/57 95 08/21/22 20:00 98.0 F 47 L 18 116/64 96 08/21/22 17:30 45 L 16 96/51 91 L 08/21/22 16:27 42 L 16 98 08/21/22 16:14 97.8 F 43 L 18 119/80 99 08/21/22 15:00 39 L 18 106/77 99 08/21/22 14:00 41 L 18 114/67 98 Intake and Output 08/21/22 08/22/22 08/22/22 22:59 06:59 14:59 Intake Total 118 240 Output Total 450 800 750 Balance -633 -249 -154 Intake: Oral 118 240 Output: Urine 450 800 750 Other: Voiding Method Urinal Urinal # Voids 1 Weight 108.862 kg Results 08/21/22 12:28 08/21/22 12:28 Cardiac Enzymes 08/21/22 Range/Units 12:28 Troponin I <0.012 (0.000-0.034) ng/mL Current Medications Generic Name Dose Route Start Last Admin Trade Name Freq PRN Reason Stop Dose Admin Sodium Chloride 1,000 mls @ 150 mls/hr 08/21/22 14:15 08/22/22 06:31 Saline 0.9% IV Not Given .[id number] GRISELDA Naloxone HCl 0.2 mg 08/21/22 14:14 Naloxone 0.4 Mg/Ml 1 Ml Vial IV Q2M PRN Opioid Reversal Nicotine 1 patch 08/22/22 10:00 08/22/22 11:09 Nicotine 21mg/24hr Patch TRANSDERM 1 patch DAILY GRISELDA Administration Intake and Output 08/21/22 08/22/22 08/22/22 22:59 06:59 14:59 Intake Total 118 240 Output Total 450 800 750 Balance -421 -766 -327 Intake: Oral 118 240 Output: Urine 450 800 750 Other: Voiding Method Urinal Urinal # Voids 1 Weight 108.862 kg 08/21/22 12:28 08/21/22 12:28
--- NOTE | 2022-08-22 13:28 | P.CN ---
Psychiatric Consult - . Consult date: 08/22/22 Consult:: 08/22/22 13:15 Patient was seen for a psych consult regarding his recent overdose. Apparently he was recently given a prescription for Ativan 2 mg 3 times a day when necessary #90. Apparently he had taken 97 of those tablets over a short period of time, has been feeling too sleepy and became drowsy requiring his coming to the ER and being admitted to the medical unit. Patient is also on Lyrica 200 mg 3 times a day, Suboxone 8/2 mg 4 times a day, Remeron 45 mg at bedtime and Zoloft 200 mg daily in addition to Ativan when necessary and his other medications. Patient said he does not know how he overdosed and had no intention of overdosing, wants to live and does not want to . His UDS is positive for THC and benzos and opiates. He said he smokes pot and he doesn't know how he was positive for opiates. He has a history of heavy alcohol abuse until a few years ago. This is a white male who was seen when he was laying down in his bed. He is polite and cooperative. He was quite apologetic about taking too many Ativans. He said he does not know how it happened. But he insists that he was not trying to overdose or trying to kill himself. He said he allows his life too much to kill himself. His speech is spontaneous relevant and goal-directed. Mood is mildly anxious and became rather emotional while talking about the history of overdosing. He denies hallucinations delusional thinking, suicide and homicide thoughts. His sensorium is clear. Assessment: Polypharmacy with multiple controlled substances in addition to Remeron and Zoloft. Accidental overdose. Insists that he is not suicidal and does not want to . Recommendation: Patient was advised that all of his medications should be in a lockbox and only his can have the access to the lockbox. She has to administer the medications when it is time to take. Patient agreed with this arrangement. I had called his and left a message about this. I had also left this recommendation with the student nurse who was at the desk since the nurse in charge was attending some other responsibility. Someone who is in charge of writing all these prescriptions should review and follow the recommendations of not combining Lyrica Suboxone and Ativan. In addition Remeron can cause sedation and compound the effects of Lyrica Suboxone and Ativan. In view of this use of Remeron needs to be seriously considered and possibly discontinued. It is also recommended that he should have drug counseling so that he can appreciate the dangers of taking all these multiple medications and hopefully not abuse of these drugs anymore.
[2022-08-22 15:45] VITALS: BP 130/75; PULSE 49; RESP 14; TEMP 97.5
--- NOTE | 2022-08-22 18:20 | CA ---
Transthoracic Echo Report Name: Christian Gayle Age: 52 Gender: M : 1970 Exam Date: 08/22/2022 14:20 Exam Location: [facility] Ht (in): 77 Wt (lb): 240 Ordering Physician: Julian Gtz DO ([email or web address]) Attending/Referring Phys: Electric Motor Tester Elena Chisholm RDCS Procedure CPT: Indications: re: bradycardia Cardiac Hx: Technical Quality: Fair Contrast 1: Total Dose (mL): Contrast 2: Total Dose (mL): MEASUREMENTS (Male / Female) Normal Values 2D ECHO LV Diastolic Diameter PLAX 4.6 cm 4.2 - 5.9 / 3.9 - 5.3 cm LV Systolic Diameter PLAX 3.0 cm IVS Diastolic Thickness 1.4 cm 0.6 - 1.0 / 0.6 - 0.9 cm LVPW Diastolic Thickness 1.4 cm 0.6 - 1.0 / 0.6 - 0.9 cm LV Relative Wall Thickness 0.6 RV Internal Dim ED PLAX 3.2 cm LA Systolic Diameter LX 3.6 cm 3.0 - 4.0 / 2.7 - 3.8 cm LA Volume 70.9 cm??? 18 - 58 / 22 - 52 cm??? M-MODE Aortic Root Diameter MM 3.9 cm MV E Point Septal Separation 1.7 cm AV Cusp Separation MM 2.3 cm DOPPLER AV Peak Velocity 112.9 cm/s AV Peak Gradient 5.1 mmHg MV Area PHT 3.4 cm??? Mitral E Point Velocity 90.5 cm/s Mitral A Point Velocity 86.2 cm/s Mitral E to A Ratio 1.1 MV Deceleration Time 222.9 ms MV E' Velocity 9.4 cm/s Mitral E to MV E' Ratio 9.6 TR Peak Velocity 258.7 cm/s TR Peak Gradient 26.8 mmHg Right Ventricular Systolic Press 31.8 mmHg FINDINGS Left Ventricle Left ventricular ejection fraction is estimated at 60-65 %. Left ventricular cavity size normal. Moderate concentric left ventricular hypertrophy. Right Ventricle Normal right ventricular size and function. Right ventricular systolic pressure within normal limits. Right Atrium Normal right atrial size. Left Atrium Moderately increased left atrial volume. No evidence for an atrial septal defect. Mitral Valve Structurally normal mitral valve. Mild mitral regurgitation. Aortic Valve Trileaflet aortic valve. No aortic valve stenosis or regurgitation. Tricuspid Valve Mild tricuspid regurgitation. Pulmonic Valve Structurally normal pulmonic valve. No pulmonic regurgitation. Pericardium Normal pericardium. No pericardial effusion. Aorta Mild aortic dilatation at the level of the sinuses of valsalva 39 mm CONCLUSIONS Normal left ventricular dimension and systolic function Previewed by: Dr. Paxton Nolen MD (Electronically Signed) Final Date: 22 August 2022 18:19
--- NOTE | 2022-08-22 21:18 | DS ---
DISCHARGE SUMMARY CHIEF COMPLAINT: Overdose on Ativan. HISTORY OF PRESENT ILLNESS AND PHYSICAL EXAMINATION: Details of this man's history and physical can be found in the initial workup. LABORATORY STUDIES: While he was in the hospital he had laboratory studies, details of which can be found in the laboratory section of his chart. COURSE IN THE HOSPITAL: After admission, he was placed on bedrest and underwent frequent monitoring of his neurologic status, vital signs and level of consciousness. He became fully awake and alert and it was felt he could be discharged. He can go home on his usual activity and diet as well as medications and be seen in the office in several days. FINAL DIAGNOSES: 1. Overdose of Ativan. 2. History of narcotic abuse. 3. Depression. OPERATIONS: None. CONSULTATION: Psychiatry. He is improved. SADIA / SANDRA: [id number] /
== END 2022-08-22 17:17 | disposition home or self-care (01) | DRG 918 ==
LOC: EC 11:36 → 3SCARD 14:14
PROVIDERS: ADMIT Family Medicine; ATTEND Family Medicine
DX: T42.4X1A Poisoning by benzodiazepines, accidental (unintentional), initial encounter (principal); E11.42 Type 2 diabetes mellitus with diabetic polyneuropathy; I08.1 Rheumatic disorders of both mitral and tricuspid valves; F32.A Depression, unspecified; F10.11 Alcohol abuse, in remission; F11.10 Opioid abuse, uncomplicated; R00.1 Bradycardia, unspecified; Z79.01 Long term (current) use of anticoagulants; F17.290 Nicotine dependence, other tobacco product, uncomplicated; Z28.310 Unvaccinated for COVID-19; Z87.19 Personal history of other diseases of the digestive system; Z79.899 Other long term (current) drug therapy
CPT/HCPCS: 36415; 70450; 80053; 80143; 80179; 80306; 80320; 81003; 82140; 83605; 83735; 83930; 84443; 84484; 85025; 85610; 85730; 93005; 93306; 96360; 96361; 99285

== ENCOUNTER → 2023-04-30 | Outpatient (CLI) | payer BC | END | disposition home or self-care (01) | LOC: LABPAT 10:22 | PROVIDERS: ATTEND Orthopaedic Surgery | DX: Z01.812 Encounter for preprocedural laboratory examination (principal); M16.12 Unilateral primary osteoarthritis, left hip; Z22.322 Carrier or suspected carrier of Methicillin resistant Staphylococcus aureus | CPT/HCPCS: 36415; 87070 ==

== ENCOUNTER 2023-05-07 05:34 | Day surgery (SDC) | payer BC ==
[2023-05-05 11:22] VITALS: BMI 27.8
--- NOTE | 2023-05-06 14:15 | HP ---
HISTORY AND PHYSICAL DATE OF SCHEDULED SURGERY: 05/07/2023. HISTORY OF PRESENT ILLNESS: Christian Gayle is a 52-year-old patient seen with progressive symptomatic left hip osteoarthritis. After having treatment options discussed, he elected to proceed with direct anterior left total hip arthroplasty. Consent regarding the procedure was obtained. Medical clearance was provided by Shakira White NP. PAST MEDICAL HISTORY: [id number] diabetes. SURGICAL HISTORY: Cataract surgery, shoulder arthroscopy, cholecystectomy. DAILY MEDICATIONS: 1. Metformin. 2. Prilosec. 3. Trazodone. 4. Vitamins. ALLERGIES: None. SOCIAL HISTORY: Denies tobacco use. PHYSICAL EXAMINATION: Left hip has very limited range of motion with severe pain. Positive hip impingement sign. Straight-leg raise is negative. Distal neurovascular exam is intact. RADIOGRAPHS: Radiographs of the left hip reveal severe osteoarthritic changes. IMPRESSION: 1. Left hip osteoarthritis. 2. Dmu-[id number] diabetes. PLAN: Direct anterior left total hip arthroplasty. MMODL / IJN: [id number] /
[~2023-05-07 05:34] MED LIST changes: +ACETAMINOPHEN TAB 500 MG TAB PO PRN; -LACTATED RINGERS 1,000 ML IV NR; -LACTATED RINGERS 1,000 ML IV SCH; +MELOXICAM 7.5 MG TAB PO PRN; +TRANEXAMIC 1,000 MG/100ML-NACL 1,000 MG in SALINE 1 100ML.BAG IVPB PRN
[2023-05-07] MEDS ORDERED: ONDANSETRON 4 MG/2 ML VIAL IVP ONE (06:07)
[2023-05-07] MEDS ORDERED: HYDROmorphone 0.5 MG/0.5 ML SYRINGE IVP PRN ×3 (06:07→09:05)
[2023-05-07] MEDS ORDERED: DEXAMETHASONE SOD PHOSPHATE 4 MG/ML 1 ML VIAL IV ONE (06:07)
[2023-05-07] MEDS ORDERED: LACTATED RINGERS 1,000 ML IV ONE ×3 (06:14→08:20)
[2023-05-07 06:38] LABS: Glucose,Whole Blood 152 mg/dL (70-110)
[2023-05-07] MEDS ORDERED: MIDAZOLAM 2 MG/2 ML VIAL IVP ONE (07:07)
[2023-05-07] MEDS ORDERED: DEXAMETHASONE SOD PHOSPHATE 4 MG/ML 1 ML VIAL ONE (07:25)
[2023-05-07] MEDS ORDERED: MIDAZOLAM 2 MG/2 ML VIAL ONE (07:25)
[2023-05-07] MEDS ORDERED: ROPIVACAINE 5 MG/ML 30 ML VIAL ONE (07:25)
[2023-05-07] MEDS ORDERED: KETAMINE 10 MG/ML 20 ML VIAL ONE (07:25)
[2023-05-07] MEDS ORDERED: PROPOFOL 10 MG/ML 20 ML VIAL IV ONE (07:25)
[2023-05-07] MEDS ORDERED: fentaNYL (PF) 50 MCG/ML 2 ML AMP ONE (07:25)
[2023-05-07] MEDS ORDERED: TRANEXAMIC 1,000 MG/100ML-NACL PREMIX BAG ONE (07:25)
[2023-05-07] MEDS ORDERED: ceFAZolin 1,000 MG in SODIUM CHLORIDE 0.9% 1,000 ML IRRIGATION ONE (08:03)
--- NOTE | 2023-05-07 08:05 | P.ANPRN ---
Procedure Note - Anesthesia - Nerve Block Performed Left Bang Single Time Out Performed: Yes ([id number]) Date of Procedure: 05/07/23 Location of Patient: PreOp Indication: Acute Post-Operative Pain, Dx/Pain Location (Left hip), Requested by Surgeon Specifically requested for management of pain by DrDarya: Malcolm Jimenes Sedation Type: Sedate with meaningful contact maintained Preparation: Sterile Prep Position: Supine Catheter: None Needle Types: Pajunk Needle Gauge: 21 Ultrasound used to visualize needle placement: Yes Ultrasound used to observe medication spread: Yes Injectate: 0.5% Ropivacaine (see comment for volume) (30 mL +4 mg of Decadron) Blood Aspirated: No Pain Paresthesia on Injection Noted: No Resistance on Injection: Normal Image Stored and Saved: Yes Events: Uneventful and Well Tolerated
[2023-05-07] MEDS ORDERED: traMADol 50 MG TAB PO PRN (09:05)
[2023-05-07] MEDS ORDERED: HYDROmorphone 1 MG/ML 1 ML SYRINGE IVP PRN (09:05)
[2023-05-07] MEDS ORDERED: HYDROcodone/APAP 7.5-325MG 1 EACH TAB PO PRN (09:05)
[2023-05-07] MEDS ORDERED: ONDANSETRON 4 MG/2 ML VIAL IVP PRN (09:05)
[2023-05-07] MEDS ORDERED: NALOXONE 0.4 MG/ML 1 ML VIAL IV PRN (09:05)
[2023-05-07] MEDS ORDERED: HYDROcodone/APAP 5-325MG 1 EACH TAB PO PRN (09:05)
--- NOTE | 2023-05-07 09:05 | P.OP ---
Date of Procedure: 05/07/23 Preoperative Diagnosis: Left hip osteoarthritis Postoperative Diagnosis: Left hip osteoarthritis Procedure(s) Performed: Direct anterior left total hip arthroplasty Implants: 1. Depuy Corail KA size 15 standard with collar press-fit femoral stem 2. Depuy Deep Gap 60 mm press-fit acetabular shell 3. Depuy Deep Gap neutral polyethylene acetabular liner 36 mm ID 60 mm OD 4. Biolox delta ceramic femoral head +1.5 36 mm Anesthesia: regional (erector spinae block), spinal Surgeon: Malcolm Jimenes Publication Editor #1: Partha Parra Estimated Blood Loss (ml): 50 Pathology: none sent Condition: stable Disposition: PACU Indications for Procedure: 52-year-old patient who was seen with symptomatic left hip osteoarthritis. After treatment options were discussed, he elected to proceed with direct anterior left total hip arthroplasty. Operative Findings: See description of procedure Description of Procedure: The patient was taken to the operative suite. Patient underwent a spinal anesthetic by the department of anesthesia. Patient was then transferred to the [place] table. Patient was given preoperative IV antibiotics and TXA. Both lower extremities were placed in standard leg spars. The hip was then prepped and draped in the normal sterile orthopedic fashion. A standard anterior incision was made beginning 3 cm lateral and 1 cm distal to the ASIS extending 10 cm. Dissection was then carried down through the subcutaneous soft tissues down to the fascia overlying the tensor fascia abbey. An incision was now made through the fascia. Careful dissection was taken down exposing the tensor fascia abbey muscle. A Cobra retractor was now placed along the medial femoral neck and a second one along the lateral femoral neck. The venous circumflex vessels were now identified, cauterized and clipped. We identified the anterior hip capsule. An incision was made through the hip capsule along the lateral border. I performed a partial anterior capsulectomy. Retractors were now placed around the femoral neck itself. A femoral neck cut was now made with a sagittal saw. It was completed with an osteotome at the lateral neck area. The femoral head was now removed without difficulty. The extremity was now rotated to 45 of external rotation. It was locked in position. Residual labrum was now debrided out. Serial reaming was performed of the acetabulum while Casper MONTANEZ assisted holding an anterior retractor for exposure. Once we reached the appropriate size and a trial was position and fit nicely. The appropriate size was now chosen opened and made available. It was introduced into the acetabulum without difficulty. The C-arm/fluoroscopy was now brought into the operative field. We made sure we had a true AP pelvic view. We now under direct C- arm/fluoroscopy introduced into the acetabular component with appropriate version and inclination. I held the cup in appropriate position well Casper MONTANEZ used a mallet to seat the acetabular component. I noted the component now to be well seated and stable. Acetabular cup introduce her was removed. The C-arm was pulled back. An appropriate liner was introduced and clicked into position. It was felt to be stable. At this point retractors were removed. The extremity was now placed into 120 external rotation with no traction. The leg was now dropped to the ground and adducted. Appropriate retractors were now positioned along the proximal femur. We also placed our femoral look into position. Additional capsular releasing was performed to gain access to the proximal femur. We now used a box osteotome. A canal finder was now utilized. Serial broaching was now performed with the assistance of Csaper MONTANEZ tapping the broaches down with a mallet while held the broach in appropriate rotation and position. This was done until we reached the appropriate size with good overall rotational stability. Appropriate calcar planing was performed. A trial head/neck was placed into position. The hip was now reduced. The C- arm/fluoroscopy was brought back into the operative field. I obtained an AP pelvis was demonstrated adequate leg length alignment. The trial components appeared adequately sized and positioned. The C-arm/fluoroscopy was pulled back. Retractors were repositioned and the hip was dislocated. The leg was again taken down to the ground and adducted. Appropriate retractors were repositioned as well as the femoral hook. All trial components were removed. The femoral implant was opened along with the femoral head. The femoral implant was introduced on the appropriate handle into our pre-broached area. I held the component position well Casper MONTANEZ used a mallet to seat the femoral component. The femoral component was now noted to be well seated and stable.. The femoral head was introduced with good positioning and fixation noted. Retractors were now removed. The hip was now reduced. There appeared be good positioning of the hip confirmed on intraoperative fluoroscopy. Spot films were obtained to document this. A second gram of TXA was given. The deep and superficial soft tissues were infiltrated with local analgesic. Bipolar cautery had been utilized intermittently through the procedure for hemostasis. The wound was irrigated copiously with pulse lavage mechanical irrigation. The fascia was repaired with Vicryl suture. The subcutaneous soft tissues were repaired in layers with Vicryl suture. The skin was approximated with pernio/Dermabond. Sterile dressings were applied. Patient was then awakened, transferred to a bed and taken to recovery in stable condition. Casper MONTANEZ assisted with the complex procedure.
--- NOTE | 2023-05-07 10:09 | FL ---
Intraoperative/procedural fluoroscopic services were provided. Total fluoroscopy time is 11 seconds w ith a total of 2 submitted images to PACS. Please see the operative/procedural note for further detai ls. DAP: [id number] mGym2
[2023-05-07] MEDS ORDERED: DEXTROSE 50% SYRINGE 50 ML IVP PRN ×2 (13:34)
--- NOTE | 2023-05-07 13:35 | P.CONS ---
History of Present Illness - Reason for Consult Consult date: 05/07/23 Medical Management Requesting physician: Malcolm Jimenes - History of Present Illness History of Presenting Illness: Patient is a pleasant 52-year-old male with a past medical history of previous alcohol abuse diagnosed with alcoholic liver cirrhosis and portal hypertension with last reported alcoholic beverage pain in 2016, opioid dependence on Suboxone, chronic pain with neuropathy, GERD, type II qas-vgxemed-gtnfhbgso diabetes mellitus, and osteoarthritis. Patient currently admitted under orthopedic surgery team and is status post elective left total hip arthroplasty secondary to severe left hip osteoarthritis. We have been consulted for medical management throughout patient's hospitalization. Patient seen and fully evaluated in room 466 upon return from surgical procedure. Patient currently reporting controlled postoperative pain. Patient denies having any postoperative nausea or vomiting and denies experiencing any numbness/tingling/focal weakness in his extremities. Patient reports currently pain being managed by Dilaudid. He denies history of DVT or PE. Patient denies having any other complaints or needs at this time including headache, light headedness, dizziness, chest pain, palpitations, or shortness of breath. Review of systems: Pertinent positives and negatives as discussed in HPI, a complete review of systems was performed and all other systems are negative. Physical exam: Vital signs reviewed and stable. General: Nontoxic, no distress and appears stated age. Derm: Skin warm and dry, normal coloration for ethnicity. Head: Atraumatic, normocephalic and symmetric. Eyes: EOMs intact, no lid lag, and anicteric sclera Mouth: no lip lesions, mucus membranes moist Cardiovascular: regular rate and rhythm with normal S1S2, systolic murmur, positive posterior tibial pulses bilaterally, and cap refill < 2 seconds. Lungs: Respirations even, regular, and unlabored on room air. Lungs diminished bilaterally, no rhonchi, no rales, no wheezing, and no accessory muscle usage. Abdominal: soft, nontender to palpation, no guarding, no appreciable organomegaly Ext: ROM intact. No gross muscle atrophy, no edema, no contractures Neuro: Speech clear, face symmetrical and CN II-XII grossly intact with no noted focal neuro deficits Psych: Alert and oriented to person, place, time, and situation. Appropriate and pleasant affect. Assessment and Plan of Care: Type II bop-nxfhawh-tyjsvprea diabetes mellitus with hyperglycemia Fasting blood glucose 152 this morning. Hold metformin. Order placed for glycemic protocol with NovoLog sliding scale to maintain tight glycemic control throughout hospitalization. Hemoglobin A1c to be collected with a.m. labs. History of chronic pain and opioid dependence Neuropathy -Patient to continue home Suboxone 8 mg/2 mg 3 times daily. Sublingual films to be replaced with tablets per hospital availability. -Patient to continue with Lyrica 200 mg 3 times daily for treatment of neuro trang. Status post left total hip arthroplasty -Management by primary admitting orthopedic surgery team including DVT prophylaxis, pain management, weightbearing, wound/dressing care, and PT/OT. -Order placed for morning CBC and CMP. We will follow-up with postoperative hemoglobin and other results and place additional orders as indicated. Thank you for allowing us to participate in the care of this pleasant patient. Do not hesitate to contact us with questions. Someone can be reached from the [facility] hospitalist group all hours of the day at [phone] or via [employer]. Patient was seen independently by Nurse Practitioner. This document was prepared using [employer] dictation software. Please allow for errors in produce sorter while rare they do occur. I reviewed the documentation as provided by the WILMA above, who is the original author of this note. I agree with the documented assessment and plan, with the following changes: none Past Medical History Past Medical History: Blood Disorder, Diabetes Mellitus, GERD/Reflux, GI Bleed, Liver Disease, Neurologic Disorder, Pneumonia, Skin Disorder Additional Past Medical History / Comment(s): Hx alcohol abuse, has not drank since 2016. Alcoholic liver cirrhosis/portal hypertension, hepatic encephalopathy, ascites with numerous paracentesis. Hx AMS(Altered Mental Status)/high amylase/vented. Hx pancreatitis, upper GI bleed, gastric antral vascular ectasia, pancytopenia related to cirrhosis, chronic anemia, hiatal hernia, neuropathy bilateral legs/feet, chronic back pain. 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 Past Anesthesia/Blood Transfusion Reactions: No Reported Reaction Past Psychological History: No Psychological Hx Reported Smoking Status: Former smoker, Vaper Past Alcohol Use History: Daily Additional Past Alcohol Use History / Comment(s): STARTED SMOKING IN 1996, SMOKED 1PPD, QUIT 01/07/17. PAST DAILY ALCOHOL USE, QUIT SEP 2016. Past Drug Use History: None Reported Additional Drug Use History / Comment(s): Hx Opiate Dependance 15 yrs ago, currently uses Suboxone. - Past Family History Father History Unknown: Yes Family Medical History: Dementia Additional Family Medical History / Comment(s): Father is living. Mother Family Medical History: Diabetes Mellitus Additional Family Medical History / Comment(s): Mother is . Medications and Allergies Home Medications Medication Instructions Recorded Confirmed Type Thiamine [Vitamin B-1] 100 mg PO DAILY #30 tab 11/06/16 05/07/23 Rx Folic Acid 1 mg PO DAILY 05/20/18 05/07/23 History Rifaximin [Xifaxan] 550 mg PO BID 11/21/19 05/07/23 History Pregabalin [Lyrica] 200 mg PO TID 02/14/20 05/07/23 History Omeprazole [PriLOSEC] 40 mg PO BID #60 cap 03/19/20 05/07/23 Rx Buprenorphine HCl/Naloxone HCl 1 film SL TID 05/18/20 05/07/23 History [Suboxone 8 mg-2 mg Sl Film] Sertraline [Zoloft] 100 mg PO BID 07/28/22 05/07/23 History Cholecalciferol (Vitamin D3) 125 mcg PO DAILY 05/05/23 05/07/23 History [Vitamin D3 (125 MCG = 5,000 IU)] Magnesium Oxide [Mag-Ox] 400 mg PO DAILY 05/05/23 05/07/23 History Multivitamin/Iron/Folic Acid 1 each PO DAILY 05/05/23 05/07/23 History [Centrum Adults Tablet] metFORMIN HCL 500 mg PO BID 05/05/23 05/07/23 History rOPINIRole HCL [Requip] 2 mg PO HS 05/05/23 05/07/23 History traZODone HCL 100 mg PO HS 05/05/23 05/07/23 History Acetaminophen Tab [Tylenol] 650 mg PO Q6H #32 tab 05/08/23 Rx Aspirin [Adult Low Dose Aspirin EC] 81 mg PO BID #60 tab 05/08/23 Rx Cyclobenzaprine [Flexeril] 10 mg PO TID #21 tab 05/08/23 Rx Sennosides/Docusate Sodium [Senna 1 each PO DAILY #20 capsule 05/08/23 Rx Plus 8.6-50 mg Softgel] Allergies Allergy/AdvReac Type Severity Reaction Status Date / Time No Known Allergies Allergy Verified 05/07/23 06:15 Physical Exam Osteopathic Statement: *. No significant issues noted on an osteopathic structural exam other than those noted in the History and Physical/Consult. Vitals: Vital Signs Temp Pulse Pulse Resp BP Pulse Ox 05/07/23 11:46 98.4 F 50 L 16 146/83 94 L 05/07/23 11:00 41 L 14 142/82 99 05/07/23 10:30 37 L 14 123/72 97 05/07/23 10:00 37 L 14 112/65 97 05/07/23 09:52 39 L 12 110/65 98 05/07/23 09:37 40 L 12 109/59 98 05/07/23 09:22 98.3 F 46 L 12 107/58 100 05/07/23 07:16 46 L 15 101/65 97 05/07/23 06:14 97.7 F 55 L 17 135/83 96 Intake and Output 05/06/23 05/07/23 05/07/23 22:59 06:59 14:59 Intake Total 500 1351 Output Total 50 Balance 500 1301 Intake: IV 500 1351 Output: Estimated Blood Loss 50 Other: Weight 96.7 kg Results CBC & Chem 7: 05/08/23 09:07 05/08/23 09:07 Labs: Abnormal Lab Results - Last 24 Hours (Table) 05/07/23 Range/Units 06:36 POC Glucose (mg/dL) 152 H (70-110) mg/dL
[2023-05-07] MEDS: MULTIVITAMINS, THERA 1 EACH TAB PO SCH (14:09)
[2023-05-07] MEDS ORDERED: NON FORMULARY DRUG (Buprenorphine Hcl/Naloxone Hcl [Suboxone 8 Mg-2 Mg Sl Film] 1 EACH Fil SUBLINGUAL SCH (16:00)
[2023-05-07] MEDS: PREGABALIN 100 MG CAP PO SCH ×2 (16:08→22:22)
[2023-05-07] MEDS: LACTATED RINGERS 1,000 ML IV SCH ×4 (16:23→23:04)
[2023-05-07 16:46] LABS: Glucose,Whole Blood 133 mg/dL (70-110)
[2023-05-07] MEDS: INSULIN ASPART (NovoLOG) 100 UNIT/ML VIAL SQ SCH ×2 (16:57→22:05)
[2023-05-07] MEDS: PANTOPRAZOLE 40 MG TABLET PO SCH (17:37)
[2023-05-07 20:55] LABS: Glucose,Whole Blood 105 mg/dL (70-110)
[2023-05-07] MEDS ORDERED: traZODone HCL 100 MG TAB PO SCH (21:00)
[2023-05-07] MEDS ORDERED: SENNOSIDES-DOCUSATE SODIUM 1 EACH TAB PO SCH (21:00)
[2023-05-07] MEDS: SERTRALINE 100 MG TAB PO SCH (22:22)
[2023-05-07] MEDS: BUPRENORPHINE-NALOX 8-2 MG TAB 1 EACH TAB.SUBL SL SCH (23:04)
[2023-05-08 05:55] LABS: Glucose,Whole Blood 146 mg/dL (70-110)
[2023-05-08] MEDS: INSULIN ASPART (NovoLOG) 100 UNIT/ML VIAL SQ SCH ×2 (06:00→12:56)
[2023-05-08] MEDS: PANTOPRAZOLE 40 MG TABLET PO SCH (07:05)
[2023-05-08] MEDS: LACTATED RINGERS 1,000 ML IV SCH (07:27)
--- NOTE | 2023-05-08 08:43 | P.PN ---
Subjective Progress Note Date: 05/08/23 Principal diagnosis: Left hip osteoarthritis Patient was seen at bedside this morning lying semirecumbent position with dressing to left anterior hip. Patient says he is doing well. Patient says therapy is been in yet to see him this morning. Patient says she has urinated several times since surgery yesterday. Patient says he has been up walking on the removal little bit. Patient says he does have a walker for home and is looking forward to going home later today. Patient says he does live with at home. Patient states the pain the left hip is currently controlled. Patient says he has not needed to take much if any pain medication. Patient denies chest pain, fever, shortness breath, nausea, vomiting, change in vision, loss of bowel/bladder control. Objective - Vital Signs Vital signs: Vital Signs Temp 98.2 F 05/08/23 07:30 Pulse 55 L 05/08/23 07:30 Resp 16 05/08/23 07:30 BP 104/65 05/08/23 07:30 Pulse Ox 93 L 05/08/23 07:30 FiO2 Intake & Output 05/07/23 05/08/23 05/08/23 18:59 06:59 18:59 Intake Total 1701 1490 Output Total 750 1200 400 Balance 951 290 -400 Weight 96.7 kg Intake: IV 1351 Intake, IV Titration 1250 Amount Lactated Ringers 1,000 ml 1200 @ 100 mls/hr IV .Q10H [facility] Rx#:[id number] ceFAZolin 2 gm In Sodium 50 Chloride 0.9% 50 ml @ 100 mls/hr IVPB Q8HR [facility] Rx# :[id number] Oral 350 240 Output: Urine 700 1200 400 Estimated Blood Loss 50 - Exam Left hip: Incision is clean, dry, and intact. The silver foam dressing is in good condition. There is minimal soft tissue swelling and ecchymosis surrounding the medial and lateral aspects of the incision. Calf is soft, no tenderness with palpation. Plantar flexion, dorsiflexion, EHL, FHL are intact. Sensory exam to light touch throughout the extremity is intact, dorsal pedis pulses 2+. - Labs Labs: Abnormal Lab Results - Last 24 Hours (Table) 05/07/23 05/08/23 Range/Units 16:44 05:53 POC Glucose (mg/dL) 133 H 146 H (70-110) mg/dL Assessment and Plan Assessment: 1. Left hip osteoarthritis - Postop day #1 status post left total hip arthroplasty Plan: 1. Left hip osteoarthritis - left total hip arthroplasty performed yesterday, , 05/07/2023. Patient stable at bedside this morning. Patient does have a walker home. Pending physical therapy evaluation, plan for discharge ho me today with health services. 2. Appreciate medical management 3. Pain management - [place] 4. DVT prophylaxis - Lovenox in hospital. Going home with aspirin 81 mg twice a day 30 days 5. GI prophylaxis - senna 6. PT/OT - weightbearing as tolerated with walker as needed 7. Encourage incentive spirometer use 8. Discharge planning - discharge home today with health services Time with Patient: Less than 30
--- NOTE | 2023-05-08 08:50 | P.DS ---
Providers Date of admission: 05/07/2023 Expected date of discharge: 05/08/23 Attending physician: Malcolm Jimenes Consults: 05/07/23 09:05 Consult Physician Routine Consulting Provider: Danelle Boston Consult Reason/Comments: Medical management Do you want consulting provider notified?: Yes Primary care physician: Den Simpson [facility] Hospital Course: Date of admission: 05/07/2023 Date of discharge: 05/08/2023 Admission diagnosis: Left hip osteoarthritis Discharge diagnosis: same Attending physician: Dr. Jimenes Surgical procedures: left total hip arthroplasty Brief history: Patient is a 52-year-old male with a history of progressive primary left hip osteoarthritis. At this point patient has failed conservative treatment measures and has opted to proceed with a elective left total hip arthroplasty. Hospital course: Details of patient's surgery can be found in operative report. Patient tolerated the procedure well and was subsequently transported to orthopedic floor. Patient's orthopeidc and medical care was provided daily. Patient had daily laboratory tests performed for evaluation of overall blood counts. Patient had daily physical therapy to include strengthening range of motion as well as education with walker ambulation. Patient was treated with Lovenox for their postoperative DVT prophylaxis during their inpatient stay. Patient was noted to have a relatively uneventful postoperative course. Patient reported satisfactory pain control with oral pain medications by postoperative day 1. Patient showed satisfactory progress with physical therapy. Patient moved steadily through the program and had no difficulty meeting the goals by postoperative day 1. Given patient's otherwise satisfactory course and having met physical therapy goals, plan is to discharge patient home with health services on postoperative day 1. Discharge condition/disposition: Patient will be discharged home with [facility] in stable condition. Discharge medications: Instructions are given on resumption of patient's normal daily medications per primary care recommendation, in addition patient will be prescribed [place]; senna; aspirin 81 mg twice a day 30 days. Discharge instructions: 1. Wound care and infection precautions, keep incision dry and covered while showering, no lotions, creams, moisturizers. No soaking, tubs, pools, hottubs. Do not scrub over the incision. 2. Weight-bear as tolerated with walker / cane until follow-up. 3. Ice and elevate when necessary. Do not exceed 20 minutes per hour with ice pack. 4. Utilize compression sleeve until seen at first follow up appointment. 5. Visiting nursing care. 6. Home physical therapy. 7. Pain meds and anticoagulants per prescription. 8. Pain medication has potential to cause constipation. Increase oral fluid and fiber intake. Contact primary care provider if you have not had a bowel movement within 48 hours after discharge 9. No anti-inflammatory medication until discussed at first post operative visit, this including Motrin, Aleve, Mobic, Diclofenac. 10. Follow up in office at 2 weeks postop with Casper Parra PA-C / Roberto Stewart PA-C 11. Follow up with your primary care doctor 7-10 days after discharge. 12. Contact [facility] with any questions, . Assessment: Left hip osteoarthritis Procedures: Left total hip arthroplasty Patient Condition at Discharge: Good Plan - Discharge Summary Discharge Rx Participant: Yes New Discharge Prescriptions: New Aspirin [Adult Low Dose Aspirin EC] 81 mg PO BID #60 tab HYDROcodone/APAP 7.5-325MG [[place] 7.5] 1 - 2 each PO Q6HR PRN #36 tab PRN Reason: Pain Sennosides/Docusate Sodium [Senna Plus 8.6-50 mg Softgel] 1 each PO DAILY #20 capsule No Action Thiamine [Vitamin B-1] 100 mg PO DAILY #30 tab Folic Acid 1 mg PO DAILY Rifaximin [Xifaxan] 550 mg PO BID Pregabalin [Lyrica] 200 mg PO TID Omeprazole [PriLOSEC] 40 mg PO BID #60 cap Buprenorphine HCl/Naloxone HCl [Suboxone 8 mg-2 mg Sl Film] 1 film SL TID Magnesium Oxide [Mag-Ox] 400 mg PO DAILY traZODone HCL 100 mg PO HS rOPINIRole HCL [Requip] 2 mg PO HS metFORMIN HCL 500 mg PO BID Multivitamin/Iron/Folic Acid [Centrum Adults Tablet] 1 each PO DAILY Sertraline [Zoloft] 100 mg PO BID Cholecalciferol (Vitamin D3) [Vitamin D3 (125 MCG = 5,000 IU)] 125 mcg PO DAILY Discharge Medication List Thiamine [Vitamin B-1] 100 mg PO DAILY #30 tab 11/06/16 [Rx] Folic Acid 1 mg PO DAILY 05/20/18 [History] Rifaximin [Xifaxan] 550 mg PO BID 11/21/19 [History] Pregabalin [Lyrica] 200 mg PO TID 02/14/20 [History] Omeprazole [PriLOSEC] 40 mg PO BID #60 cap 03/19/20 [Rx] Buprenorphine HCl/Naloxone HCl [Suboxone 8 mg-2 mg Sl Film] 1 film SL TID 05/18/20 [History] Sertraline [Zoloft] 100 mg PO BID 07/28/22 [History] Cholecalciferol (Vitamin D3) [Vitamin D3 (125 MCG = 5,000 IU)] 125 mcg PO DAILY 05/05/23 [History] Magnesium Oxide [Mag-Ox] 400 mg PO DAILY 05/05/23 [History] Multivitamin/Iron/Folic Acid [Centrum Adults Tablet] 1 each PO DAILY 05/05/23 [History] metFORMIN HCL 500 mg PO BID 05/05/23 [History] rOPINIRole HCL [Requip] 2 mg PO HS 05/05/23 [History] traZODone HCL 100 mg PO HS 05/05/23 [History] Aspirin [Adult Low Dose Aspirin EC] 81 mg PO BID #60 tab 05/08/23 [Rx] HYDROcodone/APAP 7.5-325MG [[place] 7.5] 1 - 2 each PO Q6HR PRN #36 tab 05/08/23 [Rx] Sennosides/Docusate Sodium [Senna Plus 8.6-50 mg Softgel] 1 each PO DAILY #20 capsule 05/08/23 [Rx] Follow up Appointment(s)/Referral(s): Partha Parra PAC [PHYSICIAN DAIRY LABORATORY TECHNICIAN] - 2 Weeks Patient Instructions/Handouts: Anterior Hip Replacement (DC) Activity/Diet/Wound Care/Special Instructions: Discharge instructions: 1. Wound care and infection precautions, keep incision dry and covered while showering, no lotions, creams, moisturizers. No soaking, tubs, pools, hottubs. Do not scrub over the incision. 2. Weight-bear as tolerated with walker / cane until follow-up. 3. Ice and elevate when necessary. Do not exceed 20 minutes per hour with ice pack. 4. Utilize compression sleeve until seen at first follow up appointment. 5. Visiting nursing care. 6. Home physical therapy. 7. Pain meds and anticoagulants per prescription. 8. Pain medication has potential to cause constipation. Increase oral fluid and fiber intake. Contact primary care provider if you have not had a bowel movement within 48 hours after discharge 9. No anti-inflammatory medication until discussed at first post operative visit, this including Motrin, Aleve, Mobic, Diclofenac. 10. Follow up in office at 2 weeks postop with Casper Parra PA-C / Roberto Stewart PA-C 11. Follow up with your primary care doctor 7-10 days after discharge. 12. Contact [facility] with any questions, . Keep silver foam dressing clean, dry, intact. While showering, cover dressing with Saran wrap. Dressing may be removed on , 05/14/2023. Okay to shower directly over incision once dressing is removed. Discharge Disposition: HOME WITH HOME HEALTH SERVICES
[2023-05-08] MEDS ORDERED: FAMOTIDINE 20 MG TAB PO SCH (09:00)
[2023-05-08] MEDS ORDERED: MELOXICAM 7.5 MG TAB PO SCH (09:00)
[2023-05-08] MEDS ORDERED: ENOXAPARIN 40 MG/0.4 ML SYRINGE SQ SCH (09:00)
[2023-05-08] MEDS: PREGABALIN 100 MG CAP PO SCH (10:16)
[2023-05-08] MEDS: SERTRALINE 100 MG TAB PO SCH (10:16)
[2023-05-08] MEDS: BUPRENORPHINE-NALOX 8-2 MG TAB 1 EACH TAB.SUBL SL SCH (10:40)
[2023-05-08 11:20] LABS: Glucose,Whole Blood 132 mg/dL (70-110)
[2023-05-08] MEDS: MULTIVITAMINS, THERA 1 EACH TAB PO SCH (13:14)
[2023-05-08 13:40] LABS: Basophils # (A) 0.01 X 10*3/uL (0.00-0.10); Basophils % (A) 0.2 %; Eosinophils # (A) 0.02 X 10*3/uL (0.04-0.35); Eosinophils % (A) 0.4 %; HCT 40.2 % (39.6-50.0); HGB 12.5 d/dL (13.0-17.0); Lymphocytes % (A) 19.6 %; MCH 26.8 pg (27.0-32.0); MCHC 31.1 d/dL (32.0-37.0); MCV 86.1 FL (80.0-97.0); Mean Platelet Volume 11.4 FL (9.5-12.2); Monocytes # (A) 0.51 X 10*3/uL (0.20-1.00); Monocytes % (A) 9.1 %; NRBC Per 100 WBC 0 X 10*3/uL (0.00-0.01); Neutrophils # (A) 3.97 X 10*3/uL (1.80-7.70); Neutrophils % (A) 70.5 %; Platelet Count 151 X 10*3/uL (140-440); RBC 4.67 X 10*6/uL (4.40-5.60); RDW 13.6 % (11.5-14.5); WBC 5.62 X 10*3/uL (4.50-10.00)
[2023-05-08 15:00] LABS: ALT 28 U/L (10-49); AST 42 U/L (14-35); Albumin 4.6 d/dL (3.8-4.9); Alkaline Phosphatase 85 U/L (41-126); BUN/Creat Ratio 13.88 Ratio (12.00-20.00); Blood Urea Nitrogen 11.1 mg/dL (9.0-27.0); Calcium 9.7 mg/dL (8.7-10.3); Carbon Dioxide 27.3 mmol/L (21.6-31.8); Chloride 102 mmol/L (96-109); Globulin 2.3 d/dL (1.6-3.3); Glucose 131 mg/dL (70-110); Magnesium 1.9 mg/dL (1.5-2.4); Potassium 4.6 mmol/L (3.5-5.5); Sodium 142 mmol/L (135-145); Total Bilirubin 0.5 mg/dL (0.3-1.2); Total Protein 6.9 d/dL (6.2-8.2)
[2023-05-08 15:08] VITALS: BP 106/63; PULSE 52; RESP 14; TEMP 98.6
--- NOTE | 2023-05-08 18:58 | P.PN ---
Subjective Progress Note Date: 05/08/23 Hospital Course: Patient is a pleasant 52-year-old male with a past medical history of previous alcohol abuse diagnosed with alcoholic liver cirrhosis and portal hypertension with last reported alcoholic beverage pain in 2016, opioid dependence on Suboxone, chronic pain with neuropathy, GERD, type II cyo-lllnwzp-cyjlmiwnr diabetes mellitus, and osteoarthritis. Patient currently admitted under orthopedic surgery team and is status post elective left total hip arthroplasty secondary to severe left hip osteoarthritis. We have been consulted for medical management throughout patient's hospitalization. Physical exam: Patient seen and fully evaluated at bedside this morning. He just completed walking with physical therapy and reports he gets the stairs and is working well with a walker. Patient reports he is doing much better than expected. Patient reports currently pain is controlled and very looking forward to going home. Patient's significant other at bedside Vital signs reviewed and stable. General: Nontoxic, no distress and appears stated age. Derm: Skin warm and dry, normal coloration for ethnicity. Head: Atraumatic, normocephalic and symmetric. Eyes: EOMs intact, no lid lag, and anicteric sclera Mouth: no lip lesions, mucus membranes moist Cardiovascular: regular rate and rhythm with normal S1S2, systolic murmur, positive posterior tibial pulses bilaterally, and cap refill < 2 seconds. Lungs: Respirations even, regular, and unlabored on room air. Lungs diminished bilaterally, no rhonchi, no rales, no wheezing, and no accessory muscle usage. Abdominal: soft, nontender to palpation, no guarding, no appreciable organomegaly Ext: ROM intact. No gross muscle atrophy, no edema, no contractures Neuro: Speech clear, face symmetrical and CN II-XII grossly intact with no noted focal neuro deficits Psych: Alert and oriented to person, place, time, and situation. Appropriate and pleasant affect. Assessment and Plan of Care: Acute postoperative blood loss anemia, stable and expected finding. Postoperative Hemoglobin 12.5 with preoperative hemoglobin of 14.5. CBC otherwise normal findings and BMP showing no significant abnormalities. Type II ync-uogyein-nsxbeczih diabetes mellitus with hyperglycemia Fasting blood glucose 152 this morning. Hold metformin. Order placed for glycemic protocol with NovoLog sliding scale to maintain tight glycemic control throughout hospitalization. Hemoglobin A1c to be collected with a.m. labs. History of chronic pain and opioid dependence Neuropathy -Patient to continue home Suboxone 8 mg/2 mg 3 times daily. Sublingual films to be replaced with tablets per hospital availability. -Patient to continue with Lyrica 200 mg 3 times daily for treatment of neuropathy. Status post left total hip arthroplasty -Management by primary admitting orthopedic surgery team including DVT prophylaxis, pain management, weightbearing, wound/dressing care, and PT/OT. Vital signs also reviewed and stable. Blood pressure 104/65, heart rate 55, respiratory rate 16, temp 98.2F, SpO2 of 93% with room air. Medically, patient stable for discharge once cleared by primary admitting orthopedic surgery team. Thank you for allowing us to participate in the care of this pleasant patient. Do not hesitate to contact us with questions. Someone can be reached from the [facility] hospitalist group all hours of the day at [phone] or via [employer]. Patient was seen independently by Nurse Practitioner. This document was prepared using [employer] dictation software. Please allow for errors in store group manager while rare they do occur. Farhat Lakhani NP rendered care for this patient independently, reviewed the findings and plan as documented in the note above. I did not physically speak with or examine the patient on this date. Objective - Vital Signs Vital signs: Vital Signs Temp 98.3 F 05/08/23 01:37 Pulse 60 05/08/23 01:37 Resp 17 05/08/23 01:37 BP 101/60 05/08/23 01:37 Pulse Ox 95 05/08/23 01:37 FiO2 Intake & Output 05/07/23 05/08/23 05/08/23 18:59 06:59 18:59 Intake Total 1701 1490 Output Total 750 1200 400 Balance 951 290 -400 Weight 96.7 kg Intake: IV 1351 Intake, IV Titration 1250 Amount Lactated Ringers 1,000 ml 1200 @ 100 mls/hr IV .Q10H [facility] Rx#:[id number] ceFAZolin 2 gm In Sodium 50 Chloride 0.9% 50 ml @ 100 mls/hr IVPB Q8HR [facility] Rx# :[id number] Oral 350 240 Output: Urine 700 1200 400 Estimated Blood Loss 50 - Labs CBC & Chem 7: 05/08/23 09:07 05/08/23 09:07 Labs: Abnormal Lab Results - Last 24 Hours (Table) 05/07/23 05/08/23 Range/Units 16:44 05:53 POC Glucose (mg/dL) 133 H 146 H (70-110) mg/dL
== END 2023-05-08 15:27 | disposition home health service (06) ==
LOC: OR 05:34 → 4SSUR 11:12 → OR 05-08 15:27
PROVIDERS: ATTEND Orthopaedic Surgery
DX: M16.12 Unilateral primary osteoarthritis, left hip (principal); G89.18 Other acute postprocedural pain; E11.9 Type 2 diabetes mellitus without complications; Z90.49 Acquired absence of other specified parts of digestive tract; Z79.899 Other long term (current) drug therapy
CPT/HCPCS: 97162; 64447; 86900; 86901; 80053; 83735; 85025; 86850; 83036; 73501; 27130; C1776; J2250; J1100; J0690 ×2; J2405; J1650; J1170

== ENCOUNTER → 2023-07-31 | Outpatient (CLI) | payer BC ==
[2023-07-31 16:33] LABS: Basophils # (A) 0.02 X 10*3/uL (0.00-0.10); Basophils % (A) 0.5 %; Eosinophils # (A) 0.07 X 10*3/uL (0.04-0.35); Eosinophils % (A) 1.8 %; HCT 39.1 % (39.6-50.0); HGB 12.1 d/dL (13.0-17.0); Lymphocytes # (A) 0.92 X 10*3/uL (0.90-5.00); Lymphocytes % (A) 23.4 %; MCH 25.6 pg (27.0-32.0); MCHC 30.9 d/dL (32.0-37.0); MCV 82.7 FL (80.0-97.0); Mean Platelet Volume 11.9 FL (9.5-12.2); Monocytes # (A) 0.22 X 10*3/uL (0.20-1.00); Monocytes % (A) 5.6 %; NRBC Per 100 WBC 0 X 10*3/uL (0.00-0.01); Neutrophils % (A) 68.4 %; Platelet Count 142 X 10*3/uL (140-440); RBC 4.73 X 10*6/uL (4.40-5.60); RDW 13.4 % (11.5-14.5); WBC 3.94 X 10*3/uL (4.50-10.00)
[2023-07-31 17:16] LABS: INR 1.02 sec (0.93-1.11)
[2023-07-31 18:23] LABS: ALT 82 U/L (10-49); AST 38 U/L (14-35); Albumin 4.4 d/dL (3.8-4.9); Albumin/Globulin Ratio 1.76 Ratio (1.60-3.17); Alkaline Phosphatase 100 U/L (41-126); Bilirubin, Conjugated <0.20 mg/dL (0.20-0.40); Bilirubin,Unconjugated >0.10 mg/dL (0.20-1.00); Globulin 2.5 d/dL (1.6-3.3); Total Bilirubin 0.3 mg/dL (0.3-1.2); Total Protein 6.9 d/dL (6.2-8.2)
== END | disposition home or self-care (01) ==
LOC: LABWHC1 11:47
PROVIDERS: ATTEND Family Medicine
DX: K70.30 Alcoholic cirrhosis of liver without ascites (principal)
CPT/HCPCS: 36415; 80076; 82105; 85025; 85610

== ENCOUNTER → 2023-08-31 | Outpatient (CLI) | payer BC ==
--- NOTE | 2023-08-31 08:53 | US ---
EXAMINATION TYPE: US abdomen limited DATE OF EXAM: 08/31/2023 COMPARISON: 12/19/22 CLINICAL INDICATION: Male, 53 years old with history of K70.30 ALCOHOLIC CIRRHOSIS OF LIVER WITHOUT A SCITIES; f/u 6 months TECHNIQUE: Multiple sonographic images of the right upper quadrant are obtained. FINDINGS: EXAM MEASUREMENTS: Liver Length: 16.2 cm Gallbladder Wall: Surgically absent CBD: 0.5 cm Right Kidney: 9.7 x 5.0 x 5.3 cm CONCESSION CASHIER NOTES: Pancreas: Obscured by bowel gas Liver: increase size and echogenicity Gallbladder: Surgically absent Evidence for sonographic Corral's sign: No CBD: Upper limits, post cholecystectomy Right Kidney: wnl Exam again limited by bowel gas and rib shadows IMPRESSION: Cardiomegaly with underlying hepatic steatosis.
== END | disposition home or self-care (01) ==
LOC: RADUSWWP 08:18
PROVIDERS: ATTEND Internal Medicine Gastroenterology
DX: K70.30 Alcoholic cirrhosis of liver without ascites (principal); K76.0 Fatty (change of) liver, not elsewhere classified; I51.7 Cardiomegaly
CPT/HCPCS: 76705

== ENCOUNTER 2024-01-01 12:20 | Inpatient (IN) | payer BC, MEDICARE ==
--- NOTE | 2024-01-01 12:49 | ED ---
Lower Extremity Injury HPI - General Chief Complaint: Extremity Injury, Lower Stated Complaint: Hip Pain Time Seen by Provider: 01/01/24 12:47 Source: patient, family, RN notes reviewed Mode of arrival: wheelchair Limitations: physical limitation - History of Present Illness Initial Comments: Patient is a 53-year-old male presented to the ER with a chief complaint of left hip pain. Patient sent from Dr. Jimenes office for admission due to left hip dislocation. Patient had hip arthroplasty in April 2023. He states he was getting out of her recliner yesterday and swung his feet and felt a pop. Patient was seen by Dr. Jimenes this morning and was found to be dislocated left hip. They sent him to ER for admission and OR reduction. Patient has no other complaints at this time. Patient states he takes Suboxone which helps with his pain. Patient has chronic neuropathy and decreased sensation in bilateral lower extremities. - Related Data Home Medications Medication Instructions Recorded Confirmed Folic Acid 1 mg PO DAILY 05/20/18 01/01/24 Rifaximin [Xifaxan] 550 mg PO BID 11/21/19 01/01/24 Pregabalin [Lyrica] 200 mg PO TID 02/14/20 01/01/24 Buprenorphine HCl/Naloxone HCl 1 film SL TID 05/18/20 01/01/24 [Suboxone 8 mg-2 mg Sl Film] Sertraline [Zoloft] 100 mg PO BID 07/28/22 01/01/24 Cholecalciferol (Vitamin D3) 125 mcg PO DAILY 05/05/23 01/01/24 [Vitamin D3 (125 MCG = 5,000 IU)] Magnesium Oxide [Mag-Ox] 400 mg PO HS 05/05/23 01/01/24 metFORMIN HCL 500 mg PO BID 05/05/23 01/01/24 rOPINIRole HCL [Requip] 2 mg PO HS 05/05/23 01/01/24 traZODone HCL 100 mg PO HS 05/05/23 01/01/24 Mv-Min/Folic/K1/Lycopen/Lutein 1 tab PO DAILY 01/01/24 01/01/24 [Centrum Silver Men Tablet] Previous Rx's Medication Instructions Recorded Thiamine [Vitamin B-1] 100 mg PO DAILY #30 tab 11/06/16 Omeprazole [PriLOSEC] 40 mg PO BID #60 cap 03/19/20 Allergies Allergy/AdvReac Type Severity Reaction Status Date / Time No Known Allergies Allergy Verified 01/01/24 13:19 Review of Systems ROS Statement: Those systems with pertinent positive or pertinent negative responses have been documented in the HPI. ROS Other: All systems not noted in ROS Statement are negative. Past Medical History Past Medical History: GERD/Reflux, GI Bleed, Liver Disease, Pneumonia, Skin Disorder Additional Past Medical History / Comment(s): Past ETOH abuse-has not drank since 2016, alcoholic liver cirrhosis/portal htn, hepatic encephalopathy, ascites with numerous paracentesis, AMS/high amylase/vented, pancreatitis, upper GI bleed, gastric antral vascular ectasia, pancytopenia r/t cirrhosis, chronic anemia, hiatal hernia, neuropathy bilateral legs/feet and had past sores bilateral feet, chronic back pain. History of Any Multi-Drug Resistant Organisms: None Reported Past Surgical History: Orthopedic Surgery Additional Past Surgical History / Comment(s): Open heart surgery to remove glass from heart (fell into glass on a door), low back surgery, R inguinal hernia repair, EGD, I&D L foot wound. toal hip 2022 Past Anesthesia/Blood Transfusion Reactions: No Reported Reaction Past Psychological History: No Psychological Hx Reported Smoking Status: Current every day smoker, Vaper Past Alcohol Use History: None Reported Past Drug Use History: Marijuana - Past Family History Father History Unknown: Yes Family Medical History: Dementia Additional Family Medical History / Comment(s): Father is living. Mother Family Medical History: Diabetes Mellitus Additional Family Medical History / Comment(s): Mother is . General Exam General appearance: alert, in no apparent distress Head exam: Present: atraumatic, normocephalic, normal inspection Eye exam: Present: normal appearance, PERRL, EOMI. Absent: scleral icterus, conjunctival injection, periorbital swelling Respiratory exam: Present: normal lung sounds bilaterally. Absent: respiratory distress, wheezes, rales, rhonchi, stridor Cardiovascular Exam: Present: regular rate, normal rhythm, normal heart sounds. Absent: systolic murmur, diastolic murmur, rubs, gallop, clicks Extremities exam: Present: tenderness (Left greater trochanter. Bilateral lower extremities neurovascular intact. Patient has decreased sensation due to neuropathy) Neurological exam: Present: alert, oriented X3, CN II-XII intact Psychiatric exam: Present: normal affect, normal mood Skin exam: Present: warm, dry, intact, normal color. Absent: rash Course Vital Signs 01/01/24 12:21 Temperature 98.1 F Pulse Rate 64 Respiratory 18 Rate Blood Pressure 103/60 O2 Sat by Pulse 97 Oximetry Medical Decision Making - Medical Decision Making Was pt. sent in by a medical professional or institution (, [facility], MANAGER DEVELOPMENTAL, urgent care, hospital, or long-term...) When possible be specific @ -Yes, patient sent from Dr. Jimenes for left hip reduction in the OR. Did you speak to anyone other than the patient for history (EMS, parent, family, police, friend...)? What history was obtained from this source @ -No Did you review nursing and triage notes (agree or disagree)? Why? @ -I reviewed and agree with nursing and triage notes Were old charts reviewed (outside hosp., previous admission, EMS record, old EKG, old radiological studies, urgent care reports/EKG's, long-term records)? Report findings @ -No old charts were reviewed Differential Diagnosis (chest pain, altered mental status, abdominal pain women, abdominal pain men, vaginal bleeding, weakness, fever, dyspnea, syncope, headache, dizziness, GI bleed, back pain, seizure, CVA, palpatations, mental health, musculoskeletal)? @ -Differential Musculoskeletal: Muscular strain, contusion, ligament sprain, fracture, arthritis, septic arthritis, bursitis, cellulitis, muscle spasm, nerve compression, DVT, arterial occlusion, herpes zoster, electrolyte abnormality, tumor.... This is not meant to be in all inclusive list EKG interpreted by me (3pts min.). @ -As above X-rays interpreted by me (1pt min.). @ -None done CT interpreted by me (1pt min.). @ -None done U/S interpreted by me (1pt. min.). @ -None done What testing was considered but not performed or refused? (CT, X-rays, U/S, labs)? Why? @ -None What meds were considered but not given or refused? Why? @ -Analgesic medication refused Did you discuss the management of the patient with other professionals (professionals i.e. , [facility], MANAGER DEVELOPMENTAL, lab, RT, psych nurse, social welfare research worker, manifest/order organizer print orders, teacher, diplomatic officer, rifle case repairer)? Give summary @ -No Was smoking cessation discussed for >3mins.? @ -No Was critical care preformed (if so, how long)? @ -No Were there social determinants of health that impacted care today? How? (Homelessness, low income, unemployed, alcoholism, drug addiction, transportation, low edu. Level, literacy, decrease access to med. care, detention, rehab)? @ -No Was there de-escalation of care discussed even if they declined (Discuss DNR or withdrawal of care, Hospice)? DNR status @ -No What co-morbidities impacted this encounter? (DM, HTN, Smoking, COPD, CAD, Ca ncer, CVA, ARF, Chemo, Hep., AIDS, mental health diagnosis, sleep apnea, morbid obesity)? @ -None Was patient admitted / discharged? Hospital course, mention meds given and route, prescriptions, significant lab abnormalities, going to OR and other pertinent info. @ -Admitted. Patient is a 53-year-old male presented to ER with chief complaint of left hip pain. Patient sent by Dr. Jimenes for left hip dislocation reduction in the OR. History and physical exam completed. Vitals stable. Left lower extremity neurovascular intact. Patient in no signs acute distress and nontoxic-appearing. Patient refused analgesic medication. Preop labs completed. Patient admitted for further care and treatment. Case discussed with ED attending, Dr. Titus. Undiagnosed new problem with uncertain prognosis? @ -No Drug Therapy requiring intensive monitoring for toxicity (Heparin, Nitro, Insuli n, Cardizem)? @ -No Were any procedures done? @ -No Diagnosis/symptom? @ -Left hip dislocation Acute, or Chronic, or Acute on Chronic? @ -Acute Uncomplicated (without systemic symptoms) or Complicated (systemic symptoms)? @ -Uncomplicated Side effects of treatment? @ -No Exacerbation, Progression, or Severe Exacerbation? @ -No Poses a threat to life or bodily function? How? (Chest pain, USA, CA, pneumonia, PE, COPD, DKA, ARF, appy, cholecystitis, CVA, Diverticulitis, Homicidal, Suicidal, threat to staff... and all critical care pts) @ -No - Lab Data Result diagrams: 01/01/24 12:44 01/01/24 12:44 Lab Results 01/01/24 Range/Units 12:38 Blood Type B Positive Blood Type Recheck B Pos Bld Type Recheck Status No Antibody Screen NEGATIVE Spec Expiration Date 01/04/20242337 - EKG Data -: EKG Interpreted by Me EKG Comments: EKG taken at 12: 40 showing normal sinus rhythm no acute ST segment or T wave abnormalities. Ventricular rate 52, QRS duration 120, QT/QTc 436/417. Disposition Clinical Impression: Hip dislocation, left Disposition: ADMITTED IP TO THIS HOSP Condition: Fair Time of Disposition: 13:43
[2024-01-01 12:57] LABS: Basophils % (A) 0 %; Eosinophils # (A) 0.1 k/uL (0-0.7); Eosinophils % (A) 1 %; HCT 35.5 % (39.0-53.0); HGB 11.7 gm/dL (13.0-17.5); Lymphocytes # (A) 0.6 k/uL (1.0-4.8); Lymphocytes % (A) 13 %; MCH 26.7 pg (25.0-35.0); MCHC 32.9 g/dL (31.0-37.0); MCV 81.3 fL (80.0-100.0); Mean Platelet Volume 9.2; Monocytes # (A) 0.2 k/uL (0-1.0); Monocytes % (A) 5 %; Neutrophils # (A) 3.6 k/uL (1.3-7.7); Neutrophils % (A) 79 %; Platelet Count 144 k/uL (150-450); RBC 4.37 m/uL (4.30-5.90); WBC 4.6 k/uL (3.8-10.6)
[2024-01-01] MEDS ORDERED: ONDANSETRON 4 MG/2 ML VIAL IVP PRN (13:14)
[2024-01-01] MEDS ORDERED: NALOXONE 0.4 MG/ML 1 ML VIAL IV PRN (13:14)
[2024-01-01 13:17] LABS: INR 0.9 (<1.2); Partial Thromboplastin Time 26.1 sec (22.0-30.0)
[2024-01-01 13:26] LABS: ALT 26 U/L (4-49); AST 56 U/L (17-59); African American GFR (CKD) >90 (>60 ml/min/1.73 sqM); Albumin 4.2 g/dL (3.5-5.0); Alkaline Phosphatase 106 U/L (38-126); Anion Gap 9 mmol/L; Blood Urea Nitrogen 19 mg/dL (9-20); Calcium 9.2 mg/dL (8.4-10.2); Carbon Dioxide 29 mmol/L (22-30); Chloride 100 mmol/L (98-107); Glucose 82 mg/dL (74-99); Non-African American GFR(CKD) >90 (>60 ml/min/1.73 sqM); Potassium 4.9 mmol/L (3.5-5.1); Sodium 138 mmol/L (137-145); Total Bilirubin 0.4 mg/dL (0.2-1.3)
[2024-01-01] MEDS: ONDANSETRON 4 MG/2 ML VIAL IVP ONE (15:30)
[2024-01-01] MEDS: DEXAMETHASONE SOD PHOSPHATE 4 MG/ML 1 ML VIAL IVP ONE (15:30)
[2024-01-01] MEDS: LACTATED RINGERS 1,000 ML IV ONE ×2 (15:30→16:35)
[2024-01-01 15:41] LABS: Glucose,Whole Blood 90 mg/dL (70-110)
--- NOTE | 2024-01-01 16:03 | P.HPOR ---
History of Present Illness H&P Date: 01/01/24 Chief Complaint: Left hip periprosthetic dislocation Patient is a 53-year-old male who was evaluated in the outpatient setting on 01/01/2024 for an injury to his left hip. Apparently the patient was getting out of his recliner or chair when he felt the hip give out. Patient did wait to the following day and followed up with Dr. Jimenes in the outpatient setting. X-rays did demonstrate a periprosthetic hip dislocation. Patient underwent a direct anterior left total hip arthroplasty in April 2023. Patient has been doing very well, he denies any acute trauma or other issues with the hip. After being evaluated in the outpatient setting we did recommend patient be a dmitted to the hospital and with plan for close reduction of the left hip in the operating room with x-ray available. instructed patient to be n.p.o. after seeing him in the office. Discussed with patient that he would likely be in hospital for 1 night for evaluation, he will also be seeing some anesthesia so we would like to monitor him overnight. Past Medical History Past Medical History: GERD/Reflux, GI Bleed, Liver Disease, Pneumonia, Skin Disorder Additional Past Medical History / Comment(s): Past ETOH abuse-has not drank since 2016, alcoholic liver cirrhosis/portal htn, hepatic encephalopathy, ascites with numerous paracentesis, AMS/high amylase/vented, pancreatitis, upper GI bleed, gastric antral vascular ectasia, pancytopenia r/t cirrhosis, chronic anemia, hiatal hernia, neuropathy bilateral legs/feet and had past sores bilateral feet, chronic back pain. History of Any Multi-Drug Resistant Organisms: None Reported Past Surgical History: Orthopedic Surgery Additional Past Surgical History / Comment(s): Open heart surgery to remove glas s from heart (fell into glass on a door), low back surgery, R inguinal hernia repair, EGD, I&D L foot wound. toal hip 2022 Past Anesthesia/Blood Transfusion Reactions: No Reported Reaction Past Psychological History: No Psychological Hx Reported Smoking Status: Current every day smoker, Vaper Past Alcohol Use History: None Reported Past Drug Use History: Marijuana - Past Family History Father History Unknown: Yes Family Medical History: Dementia Additional Family Medical History / Comment(s): Father is living. Mother Family Medical History: Diabetes Mellitus Additional Family Medical History / Comment(s): Mother is . Medications and Allergies Home Medications Medication Instructions Recorded Confirmed Type Thiamine [Vitamin B-1] 100 mg PO DAILY #30 tab 11/06/16 01/01/24 Rx Folic Acid 1 mg PO DAILY 05/20/18 01/01/24 History Rifaximin [Xifaxan] 550 mg PO BID 11/21/19 01/01/24 History Pregabalin [Lyrica] 200 mg PO TID 02/14/20 01/01/24 History Omeprazole [PriLOSEC] 40 mg PO BID #60 cap 03/19/20 01/01/24 Rx Buprenorphine HCl/Naloxone HCl 1 film SL TID 05/18/20 01/01/24 History [Suboxone 8 mg-2 mg Sl Film] Sertraline [Zoloft] 100 mg PO BID 07/28/22 01/01/24 History Cholecalciferol (Vitamin D3) 125 mcg PO DAILY 05/05/23 01/01/24 History [Vitamin D3 (125 MCG = 5,000 IU)] Magnesium Oxide [Mag-Ox] 400 mg PO HS 05/05/23 01/01/24 History metFORMIN HCL 500 mg PO BID 05/05/23 01/01/24 History rOPINIRole HCL [Requip] 2 mg PO HS 05/05/23 01/01/24 History traZODone HCL 100 mg PO HS 05/05/23 01/01/24 History Mv-Min/Folic/K1/Lycopen/Lutein 1 tab PO DAILY 01/01/24 01/01/24 History [Centrum Silver Men Tablet] Allergies Allergy/AdvReac Type Severity Reaction Status Date / Time No Known Allergies Allergy Verified 01/01/24 13:19 Physical Examination Left lower extremity: Mild soft tissue swelling noted in the anterior/lateral aspect of the upper thigh. The incision is well-healed, there is no erythema. There is no other open lesions or sores. There is shortening of that extremity when compared to the contralateral side. Patient is unable to straight leg raise at this time. Plantarflexion, dorsiflexion, EHL, FHL are intact. Sensation to light touch throughout the extremity is intact. Dorsalis pedis pulses 2+. Results - Labs Labs: Abnormal Lab Results - Last 24 Hours (Table) 01/01/24 01/01/24 Range/Units 12:44 12:44 Hgb 11.7 L (13.0-17.5) gm/dL Hct 35.5 L (39.0-53.0) % Plt Count 144 L (150-450) k/uL Lymphocytes # 0.6 L (1.0-4.8) k/uL Creatinine 0.65 L (0.66-1.25) mg/dL H & H 01/01/24 Range/Units 12:44 Hgb 11.7 L (13.0-17.5) gm/dL Hct 35.5 L (39.0-53.0) % Coagulation 01/01/24 Range/Units 12:44 INR 0.9 (<1.2) Result Diagrams: 01/01/24 12:44 01/01/24 12:44 - Diagnostic results Hip x-ray: report reviewed, image reviewed (AP and lateral x-rays were reviewed from 01/01/2024 that were taken in the outpatient setting, images demonstrate a periprosthetic hip dislocation, the femoral head appears to be dislocated anterior to the acetabular component) Assessment and Plan Assessment: Periprosthetic left hip dislocation History of previous direct anterior left total hip arthroplasty, April 2023 Medical comorbidities Plan: Dr. Jimenes was able to discuss with the patient options for treatment today in office before instructing patient to go to the hospital. Patient was boarded for a closed reduction procedure with anesthesia. N.p.o. diet Nonweightbearing left lower extremity Further recommendations to follow after surgery Time with Patient: Less than 30
[2024-01-01] MEDS ORDERED: PROPOFOL 10 MG/ML 20 ML VIAL IV ONE (16:10)
[2024-01-01] MEDS ORDERED: SUCCINYLCHOLINE CHLORIDE 200 MG/10 ML VIAL IV ONE (16:10)
[2024-01-01] MEDS ORDERED: LIDOCAINE 1% INJ 10MG/ML (20 ML MDV) ONE (16:10)
[2024-01-01] MEDS ORDERED: fentaNYL (PF) 50 MCG/ML 2 ML AMP ONE (16:10)
[2024-01-01] MEDS ORDERED: GLYCOPYRROLATE 0.2 MG/ML 2 ML VIAL ONE (16:10)
[2024-01-01] MEDS ORDERED: MIDAZOLAM 2 MG/2 ML VIAL ONE (16:10)
--- NOTE | 2024-01-01 16:42 | P.OP ---
Date of Procedure: 01/01/24 Preoperative Diagnosis: Left hip periprosthetic dislocation Postoperative Diagnosis: Left hip periprosthetic dislocation Procedure(s) Performed: Closed reduction left hip dislocation Anesthesia: ALEXANDER Surgeon: Malcolm Jimenes Estimated Blood Loss (ml): 0 Pathology: none sent Condition: stable Disposition: PACU Indications for Procedure: 53-year-old patient who was seen with a left hip periprosthetic dislocation. I discussed close reduction. He was agreeable. Consent was obtained. Operative Findings: See description of procedure Description of Procedure: Patient was taken to the operative suite. He underwent a general anesthetic by the primary anesthesia. He was transferred to the [place] table. C-arm was brought into the operative field. I now performed a closed duction of left hip under fluoroscopy. I noted a successful reduction. The hip was taken through range of motion and noted good overall stability. I did not see any evidence for any issue with the components or periprosthetic fracture. A spot film was obtained to document that. The patient was then awakened, transferred to bed and recovery in stable condition.
[2024-01-01 17:15] LABS: Glucose,Whole Blood 90 mg/dL (70-110)
--- NOTE | 2024-01-01 19:49 | XR ---
Left hip. HISTORY: Pain. COMPARISON: 01/01/2024. TECHNIQUE: 2 views of the left hip were obtained. FINDINGS: There is a left hip prosthesis. The prosthesis is dislocated. There is no acute fracture. IMPRESSION: Dislocated left hip prosthesis.
--- NOTE | 2024-01-01 19:55 | XR ---
Left hip: HISTORY: Postreduction for left hip prosthesis dislocation COMPARISON: 01/01/2024. TECHNIQUE: Single intraoperative AP spot film of the left hip was obtained. There is been satisfactory postreduction of the previously dislocated left hip prosthesis. There is n o fracture or dislocation. IMPRESSION: Satisfactory post reduction of the dislocated left hip prosthesis.
--- NOTE | 2024-01-01 20:55 | P.PN ---
Progress Note - Text Progress Note Date: 01/01/24 I was contacted by nursing once patient returned to floor. Patient was ambulating and he had a very loud audible noise every time he stepped on the left hip. I was able to assess the patient at bedside and noticed this both with range of motion and nonweightbearing along with having him get up and weight-bear. He is having very minimal discomfort at this time. X-rays of the left hip were ordered, x-rays demonstrated a periprosthetic hip dislocation. Discharge order was canceled, patient will remain inpatient at this time. I discussed with him the need for a revision left total hip arthroplasty, he is tentatively scheduled for 01/03/2024. We will continue to follow patient during hospital stay
[2024-01-01 20:57] LABS: Glucose,Whole Blood 125 mg/dL (70-110)
--- NOTE | 2024-01-01 22:26 | FL ---
EXAMINATION TYPE: FL guidance operating room Intraoperative/procedural fluoroscopic services were pro vided. Total fluoroscopy time is 43 seconds with a total of 1 submitted images to PACS. Please see th e operative/procedural note for further details. Closed reduction LT hip. 1 image. 43 secs fluoro. DAP=[id number]
--- NOTE | 2024-01-02 04:27 | P.CONS ---
History of Present Illness - Reason for Consult Consult date: 01/02/24 Perioperative medical evaluation - Chief Complaint Left hip popping - History of Present Illness 53-year-old male with history of liver cirrhosis secondary to alcohol abuse, diabetes mellitus Patient coming in for evaluation. On exam his left hip pain had left total hip arthroplasty done about a year ago however yesterday he got up from a recliner quickly swung his leg and felt a pop for which she came in for evaluation he was found to have left hip dislocation which was attempted to be corrected in the OR however failed surgery decided to perform a revision of left total hip arthroplasty Patient otherwise feeling fine denies any fevers chills chest pain trouble breathing nausea vomiting headache abdominal pain GI bleeding Patient denies tobacco smoking illicit drugs or heavy alcohol review of systems Pertinent positives as noted in HPI. All other systems were reviewed and are neg ative on exam Constitutional: No acute distress Eyes: Anicteric sclerae, moist conjunctiva, Pupils equal round reactive to light ENMT: NC/AT Oropharynx clear, no erythema, or exudates Neck: Supple, no masses, or JVD No carotid bruits No thyromegaly Lungs: Clear to auscultation Clear to percussion Normal respiratory effort, no accessory muscle use Cardiovascular: Heart regular in rate and rhythm, No murmurs, gallops, or rubs No peripheral edema Abdominal: Soft Nontender, no guarding, rebound or rigidity Abdomen moving with respiration Normoactive bowel sounds Extremities: No digital cyanosis No clubbing Pedal pulses intact and symmetrical Radial pulses intact and symmetrical No calf tenderness Psychiatric: Alert and oriented to person, place and time Appropriate affect fair judgement Neuro Muscles Strength 5/5 in all 4 extremities Sensation to light touch grossly present throughout Cranial nerves II-XII grossly intact Past Medical History Past Medical History: Diabetes Mellitus, GERD/Reflux, GI Bleed, Liver Disease, Pneumonia, Skin Disorder Additional Past Medical History / Comment(s): Past ETOH abuse-has not drank sinc e 2015, alcoholic liver cirrhosis/portal htn, hepatic encephalopathy, ascites with numerous paracentesis, AMS/high amylase/vented, pancreatitis, upper GI bleed, gastric antral vascular ectasia, pancytopenia r/t cirrhosis, chronic anemia, hiatal hernia, neuropathy bilateral legs/feet and had past sores bilateral feet, chronic back pain. History of Any Multi-Drug Resistant Organisms: None Reported Past Surgical History: Orthopedic Surgery Additional Past Surgical History / Comment(s): Open heart surgery to remove glass from heart (fell into glass on a door), low back surgery, R inguinal hernia repair, EGD, I&D L foot wound. toal hip 2022, hip closed reduction 12/12/23 Past Anesthesia/Blood Transfusion Reactions: No Reported Reaction Past Psychological History: No Psychological Hx Reported Additional Psychological History / Comment(s): Pt resides with his spouse. He uses a walker. He can drive but not often. Smoking Status: Former smoker, Vaper Past Alcohol Use History: None Reported Additional Past Alcohol Use History / Comment(s): STARTED SMOKING IN 1996, SMOKED 1PPD QUIT 01/07/17, PAST DAILY ETOH-QUIT SEP 2016 currently vaping only Past Drug Use History: Marijuana Additional Drug Use History / Comment(s): previous opiate dependance many yrs ago, currently uses suboxone - Past Family History Father History Unknown: Yes Family Medical History: Dementia Additional Family Medical History / Comment(s): Father is living. Mother Family Medical History: Diabetes Mellitus Additional Family Medical History / Comment(s): Mother is . Medications and Allergies Home Medications Medication Instructions Recorded Confirmed Type Thiamine [Vitamin B-1] 100 mg PO DAILY #30 tab 11/06/16 01/01/24 Rx Folic Acid 1 mg PO DAILY 05/20/18 01/01/24 History Rifaximin [Xifaxan] 550 mg PO BID 11/21/19 01/01/24 History Pregabalin [Lyrica] 200 mg PO TID 02/14/20 01/01/24 History Omeprazole [PriLOSEC] 40 mg PO BID #60 cap 03/19/20 01/01/24 Rx Buprenorphine HCl/Naloxone HCl 1 film SL TID 05/18/20 01/01/24 History [Suboxone 8 mg-2 mg Sl Film] Sertraline [Zoloft] 100 mg PO BID 07/28/22 01/01/24 History Cholecalciferol (Vitamin D3) 125 mcg PO DAILY 05/05/23 01/01/24 History [Vitamin D3 (125 MCG = 5,000 IU)] Magnesium Oxide [Mag-Ox] 400 mg PO HS 05/05/23 01/01/24 History metFORMIN HCL 500 mg PO BID 05/05/23 01/01/24 History rOPINIRole HCL [Requip] 2 mg PO HS 05/05/23 01/01/24 History traZODone HCL 100 mg PO HS 05/05/23 01/01/24 History Mv-Min/Folic/K1/Lycopen/Lutein 1 tab PO DAILY 01/01/24 01/01/24 History [Centrum Silver Men Tablet] Allergies Allergy/AdvReac Type Severity Reaction Status Date / Time No Known Allergies Allergy Verified 01/01/24 13:19 Physical Exam Vitals: Vital Signs Temp Pulse Pulse Pulse Resp BP BP 01/02/24 00:57 98.2 F 52 L 16 99/51 01/01/24 18:36 97.8 F 55 L 18 128/81 01/01/24 18:16 51 L 16 116/71 01/01/24 18:01 48 L 16 149/83 01/01/24 17:46 49 L 16 137/79 01/01/24 17:31 52 L 16 145/85 01/01/24 17:16 48 L 16 137/77 01/01/24 17:01 57 L 16 130/81 01/01/24 16:51 97.2 F L 60 16 111/60 01/01/24 15:15 97.5 F L 54 L 16 96/61 01/01/24 15:08 46 L 16 101/63 01/01/24 14:21 44 L 18 103/65 01/01/24 12:21 98.1 F 64 18 103/60 Pulse Ox 01/02/24 00:57 96 01/01/24 18:36 96 01/01/24 18:16 99 01/01/24 18:01 100 01/01/24 17:46 100 01/01/24 17:31 97 01/01/24 17:16 100 01/01/24 17:01 100 01/01/24 16:51 96 01/01/24 15:15 98 01/01/24 15:08 96 01/01/24 14:21 95 01/01/24 12:21 97 Intake and Output 01/01/24 01/01/24 01/02/24 14:59 22:59 06:59 Intake Total 1000 Output Total 0 Balance 1000 Intake: IV 1000 Output: Estimated Blood Loss 0 Other: Voiding Method Urinal Weight 95.254 kg 92.99 kg Results CBC & Chem 7: 01/01/24 12:44 01/01/24 12:44 Labs: Abnormal Lab Results - Last 24 Hours (Table) 01/01/24 01/01/24 01/01/24 Range/Units 12:44 12:44 20:55 Hgb 11.7 L (13.0-17.5) gm/dL Hct 35.5 L (39.0-53.0) % Plt Count 144 L (150-450) k/uL Lymphocytes # 0.6 L (1.0-4.8) k/uL Creatinine 0.65 L (0.66-1.25) mg/dL POC Glucose (mg/dL) 125 H (70-110) mg/dL Assessment and Plan Assessment: Periprosthetic hip dislocation failed conservative management 53-year-old male with periprosthetic hip dislocation denies any recent hos pitalization, symptoms suggestive of congestive heart failure myocardial infarction arrhythmia syncope or seizures. Patient is functional and active at baseline at METS more than 4 no limitations related chest pain or trouble breathing he denies any history of stroke coronary artery disease congestive heart failure chronic kidney disease. Patient does admit to history of diabetes. EKG reviewed showed normal sinus rhythm blood work. Reviewed which was unremarkable Patient can proceed to planned surgical revision of his left arthroplasty with moderate but acceptable perioperative cardiovascular risk without any modifiable risk factors at this time Diabetes mellitus Insulin sliding scale Blood work overall unremarkable Sodium 138 potassium 4.9 BUN 19 creatinine 0.6 Liver enzymes unremarkable White count eight 4.6 hemoglobin 11.7 Thank you for this consultation
[2024-01-02 05:55] LABS: Glucose,Whole Blood 83 mg/dL (70-110)
[2024-01-02] MEDS ORDERED: DEXTROSE 50% SYRINGE 50 ML IVP PRN ×2 (06:57)
[2024-01-02] MEDS: INSULIN ASPART (NovoLOG) 100 UNIT/ML VIAL SQ SCH (07:43)
[2024-01-02] MEDS: PANTOPRAZOLE 40 MG TABLET PO SCH (07:49)
[2024-01-02] MEDS: FOLIC ACID 1 MG TAB PO SCH (07:49)
[2024-01-02] MEDS: SERTRALINE 100 MG TAB PO SCH (07:50)
[2024-01-02] MEDS: RIFAXIMIN 550 MG TABLET PO SCH (07:57)
[2024-01-02] MEDS: PREGABALIN 100 MG CAP PO SCH (09:15)
[2024-01-02] MEDS: THIAMINE 100 MG TAB PO SCH (09:15)
[2024-01-02] MEDS: MULTIVITAMINS, THERA 1 EACH TAB PO SCH (09:15)
[2024-01-02] MEDS: CHOLECALCIFEROL 125 MCG (5000 IU) TABLET PO SCH (09:15)
[2024-01-02] MEDS: NICOTINE 21MG/24HR PATCH TRANSDERM SCH (09:16)
[2024-01-02] MEDS: Buprenorphine Hcl/Naloxone Hcl [Suboxone 8 Mg-2 Mg Sl Film] 1 EACH Fil SUBLINGUAL SCH (09:31)
--- NOTE | 2024-01-02 10:09 | P.PN ---
Subjective Progress Note Date: 01/02/24 Principal diagnosis: Recurrent periprosthetic left hip dislocation Patient was examined today at bedside, his was also present. Patient is resting comfortably, he is having no acute pain. He has remained in bed and limited weightbearing to that extremity. Denies any headaches, lightheadedness, chest pain or shortness of breath at this time. Objective - Vital Signs Vital signs: Vital Signs Temp 98.2 F 01/02/24 07:22 Pulse 46 L 01/02/24 07:22 Resp 16 01/02/24 07:22 BP 122/71 01/02/24 07:22 Pulse Ox 97 01/02/24 07:22 FiO2 Intake & Output 01/01/24 01/02/24 01/02/24 18:59 06:59 18:59 Intake Total 1000 Output Total 0 1100 Balance 1000 -1100 Weight 92.99 kg 92.99 kg Intake: IV 1000 Output: Urine 1100 Estimated Blood Loss 0 Other: Voiding Method Urinal - Exam Left lower extremity: No obvious open lesions or sores are present throughout the extremity, well- healed incision over the anterior thigh Slight shortening of the extremity compared to the contralateral side - Labs CBC & Chem 7: 01/01/24 12:44 01/01/24 12:44 Labs: Abnormal Lab Results - Last 24 Hours (Table) 01/01/24 01/01/24 01/01/24 Range/Units 12:44 12:44 20:55 Hgb 11.7 L (13.0-17.5) gm/dL Hct 35.5 L (39.0-53.0) % Plt Count 144 L (150-450) k/uL Lymphocytes # 0.6 L (1.0-4.8) k/uL Creatinine 0.65 L (0.66-1.25) mg/dL POC Glucose (mg/dL) 125 H (70-110) mg/dL Assessment and Plan Assessment: Recurrent periprosthetic left hip dislocation History of previous direct anterior left total hip arthroplasty, April 2023 Other medical comorbidities Plan: After discussion with Dr. Jimenes, we are planning for a revision left total hip arthroplasty on 01/03/2024. Risk and benefits of the procedure were discussed with the patient, this to include but not exclude need for further surgery, and adequate healing of bone, recurrent hip dislocation, neurovascular injury, blood loss, infection, development of blood clots. Patient and family are in good understanding would like to proceed. Consent to be obtained prior to procedure Nonweightbearing left lower extremity N.p.o. after midnight Further recommendations to follow after surgery Time with Patient: Less than 30
[2024-01-02 11:18] LABS: Glucose,Whole Blood 90 mg/dL (70-110)
--- NOTE | 2024-01-02 12:53 | P.PN ---
Subjective Progress Note Date: 01/02/24 Hospital course: Patient is a very pleasant 53-year-old male with a past medical history of alcoholic liver on rifaximin 550 mg twice daily, type II ixw-cjywzdn-dwvpswvwt diabetes mellitus, GERD, and previous opioid dependence currently on Suboxone. He is admitted under orthopedic surgery secondary to recurrent periprosthetic left hip dislocation. We were consulted for medical clearance and medical management throughout hospitalization. Physical exam: Patient seen and fully evaluated at the bedside this morning. Patient reports his pain is controlled at this time and currently denies having any questions, needs, or concerns. Patient reports sensation and movement of left lower extremity does remain intact. Vital signs reviewed and stable. General: Nontoxic, no distress and appears stated age. Derm: Skin warm and dry, normal coloration for ethnicity. Head: Atraumatic, normocephalic and symmetric. Eyes: EOMs intact, no lid lag, and anicteric sclera Mouth: no lip lesions, mucus membranes moist Cardiovascular: Bradycardic rate with regular rhythm, normal S1S2, no murmur, positive posterior tibial pulses bilaterally, and cap refill < 2 seconds. Lungs: Respirations even, regular, and unlabored on room air. Lungs CTA bilaterally, no rhonchi, no rales, no wheezing, and no accessory muscle usage. Abdominal: soft, nontender to palpation, no guarding, no appreciable organomegaly Ext: No gross muscle atrophy, no edema, no contractures. Movement and sensation intact. Left lower extremity with minimal shortening and left lateral rotation. Neuro: Speech clear, face symmetrical and CN II-XII grossly intact with no noted focal neuro deficits Psych: Alert and oriented to person, place, time, and situation. Appropriate and pleasant affect. Assessment and Plan of Care: Recurrent periprosthetic left hip dislocation Management per primary orthopedic surgery team, patient scheduled to undergo revision of left total hip arthroplasty tomorrow morning. DVT prophylaxis, pain management, activity advancement, weightbearing, and PT/O T per primary admitting orthopedic surgery team. Type II csu-onbchnz-ofuzlxlne diabetes mellitus with mild hyperglycemia Blood glucose 125, will obtain hemoglobin A1c Hold metformin pending upcoming revision of left total hip arthroplasty tentatively scheduled for tomorrow morning. Patient placed on glycemic protocol with NovoLog sliding scale. Asymptomatic bradycardia EKG reviewed showing sinus bradycardia at 52 bpm with no noted T wave or ST abnormalities showing no signs of acute ischemia upon personal review and interpretation Alcoholic liver cirrhosis Continue rifaximin 550 mg twice daily. Data and imaging reviewed Vital signs reviewed and stable. Blood pressure 122/71, heart rate 46, respiratory rate 16, temp 98.2 F, and SpO2 of 97% on room air. Thank you for allowing us to participate in the care of this pleasant patient. Do not hesitate to contact us with questions. Someone can be reached from the [facility] hospitalist group all hours of the day at [phone] or via [employer]. Patient was seen independently by Nurse Pracitioner. This document was prepared using [employer] dictation software. Please allow for errors in capping machine operator, while rare they do occur. Farhat Lakhani NP rendered care for this patient independently, reviewed the findings and plan as documented in the note above. I did not physically speak with or examine the patient on this date. Objective - Vital Signs Vital signs: Vital Signs Temp 98.2 F 01/02/24 07:22 Pulse 46 L 01/02/24 07:22 Resp 16 01/02/24 07:22 BP 122/71 01/02/24 07:22 Pulse Ox 97 01/02/24 07:22 FiO2 Intake & Output 01/01/24 01/02/24 01/02/24 18:59 06:59 18:59 Intake Total 1000 Output Total 0 1100 Balance 1000 -1100 Weight 92.99 kg 92.99 kg Intake: IV 1000 Output: Urine 1100 Estimated Blood Loss 0 Other: Voiding Method Urinal - Labs CBC & Chem 7: 01/01/24 12:44 01/01/24 12:44 Labs: Abnormal Lab Results - Last 24 Hours (Table) 01/01/24 01/01/24 01/01/24 Range/Units 12:44 12:44 20:55 Hgb 11.7 L (13.0-17.5) gm/dL Hct 35.5 L (39.0-53.0) % Plt Count 144 L (150-450) k/uL Lymphocytes # 0.6 L (1.0-4.8) k/uL Creatinine 0.65 L (0.66-1.25) mg/dL POC Glucose (mg/dL) 125 H (70-110) mg/dL
[2024-01-02 16:26] LABS: Glucose,Whole Blood 128 mg/dL (70-110)
[2024-01-02 21:40] LABS: Glucose,Whole Blood 101 mg/dL (70-110)
[2024-01-02] MEDS: traZODone HCL 100 MG TAB PO SCH (21:49)
[2024-01-02] MEDS: MAGNESIUM OXIDE 400 MG TAB PO SCH (21:49)
[2024-01-03 06:14] LABS: HCT 37.5 % (39.0-53.0); MCV 84.2 fL (80.0-100.0); Mean Platelet Volume 8.4; Platelet Count 154 k/uL (150-450); RBC 4.46 m/uL (4.30-5.90); RDW 15.3 % (11.5-15.5); WBC 3.3 k/uL (3.8-10.6)
[2024-01-03 06:22] LABS: Glucose,Whole Blood 110 mg/dL (70-110)
[2024-01-03 06:33] LABS: ALT 21 U/L (4-49); AST 34 U/L (17-59); African American GFR (CKD) >90 (>60 ml/min/1.73 sqM); Albumin 3.9 g/dL (3.5-5.0); Albumin/Globulin Ratio 1.4; Alkaline Phosphatase 81 U/L (38-126); Anion Gap 8 mmol/L; Blood Urea Nitrogen 12 mg/dL (9-20); Calcium 9.1 mg/dL (8.4-10.2); Carbon Dioxide 28 mmol/L (22-30); Chloride 104 mmol/L (98-107); Globulin 2.7 g/dL; Glucose 123 mg/dL (74-99); Magnesium 2.2 mg/dL (1.6-2.3); Non-African American GFR(CKD) >90 (>60 ml/min/1.73 sqM); Potassium 4.2 mmol/L (3.5-5.1); Sodium 140 mmol/L (137-145); Total Bilirubin 0.4 mg/dL (0.2-1.3); Total Protein 6.6 g/dL (6.3-8.2)
[2024-01-03] MEDS ORDERED: ROCURONIUM 10 MG/ML (5 ML VIAL) IV ONE (08:07)
[2024-01-03] MEDS ORDERED: PROPOFOL 10 MG/ML 20 ML VIAL IV ONE (08:07)
[2024-01-03] MEDS ORDERED: LIDOCAINE 1% INJ 10MG/ML (20 ML MDV) ONE (08:07)
[2024-01-03] MEDS ORDERED: SODIUM CHLORIDE 0.9% (PF) 10 ML VIAL ONE (08:07)
[2024-01-03] MEDS ORDERED: GLYCOPYRROLATE 0.2 MG/ML 2 ML VIAL ONE (08:07)
[2024-01-03] MEDS ORDERED: MIDAZOLAM 2 MG/2 ML VIAL ONE (08:07)
[2024-01-03] MEDS ORDERED: SUCCINYLCHOLINE CHLORIDE 200 MG/10 ML VIAL IV ONE (08:07)
[2024-01-03] MEDS ORDERED: fentaNYL (PF) 50 MCG/ML 2 ML AMP ONE (08:07)
[2024-01-03] MEDS ORDERED: DEXAMETHASONE SOD PHOSPHATE 4 MG/ML 1 ML VIAL ONE (08:07)
[2024-01-03] MEDS ORDERED: ePHEDrine 50 MG/ML 1 ML VIAL ONE (08:07)
[2024-01-03] MEDS ORDERED: ROPIVACAINE 5 MG/ML 30 ML VIAL ONE (08:07)
[2024-01-03] MEDS: ceFAZolin 1,000 MG VIAL IVPB ONE (08:11)
[2024-01-03] MEDS: LACTATED RINGERS 1,000 ML IV ONE (08:11)
[2024-01-03] MEDS: ceFAZolin 1,000 MG in SODIUM CHLORIDE 0.9% 1,000 ML IRRIGATION ONE (08:46)
[2024-01-03] MEDS ORDERED: ONDANSETRON 4 MG/2 ML VIAL IVP PRN (09:55)
[2024-01-03] MEDS ORDERED: NALOXONE 0.4 MG/ML 1 ML VIAL IV PRN (09:55)
[2024-01-03] MEDS ORDERED: HYDROmorphone 0.5 MG/0.5 ML SYRINGE IVP PRN ×2 (09:55)
[2024-01-03] MEDS ORDERED: HYDROcodone/APAP 5-325MG 1 EACH TAB PO PRN ×2 (09:55)
[2024-01-03] MEDS ORDERED: HYDROmorphone 1 MG/ML 1 ML SYRINGE IVP PRN (09:55)
--- NOTE | 2024-01-03 09:55 | P.OP ---
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 DePuy neutral polyethylene acetabular liner 36 mm ID 60 mm OD 2. Biolox delta ceramic femoral head +5 36 mm Anesthesia: GETA Surgeon: Malcolm Jimenes [employer]: Partha Parra Estimated Blood Loss (ml): 20 Pathology: none sent Condition: stable Disposition: PACU Indications for Procedure: 53-year-old patient seen with a recurrent left hip periprosthetic dislocation. I discussed revision total hip arthroplasty. Patient was agreeable. Consent was obtained. Operative Findings: See description of procedure Description of Procedure: Patient was taken to the operative suite. He received preoperative IV antibiotics. He underwent a general anesthetic by department esthesia. He was transferred to the [place] table. Both lower extremities were placed and sparse. The left hip was prepped and draped in normal sterile orthopedic fashion. I made an incision of the previous cicatrix sharply through skin. And I dissected down to the fascia. I made an incision through the fascia. We then dissected down to the hip. I immediately noted the acetabular liner was disengaged. I debrided some scar tissue. I now dislocated the hip. I noted the femoral head to have some scraping posteriorly. I remove the femoral head without difficulty. I now removed the disengaged acetabular liner. I explored the liner and noted no real defects. I debrided some scar tissue along the periphery of the acetabulum. The acetabular component was now probed thoroughly and was noted to be very well-fixed without any evidence for loosening or damage to the acetabular component. We now irrigated the wound out copiously with mechanical irrigation. I now popped and a new neutral polyethylene acetabular liner and made sure that it was secured and clipped in place. We checked this multiple times and noted we had good seating of the acetabular liner and it was very stable and well fixated. I now placed a trial +536 mm femoral head to reduce the hip. I took the hip through range of motion and good overall stability. I disengage the spar and took the hip through external external rotation flexion extension and noted good intraoperative stability with no evidence for any subluxation or dislocation being possible. I now brought the C arm and evaluated the construct appeared stable. The C-arm was pulled back. I now dislocated the hip. I remove the trial head. I irrigated the wound out copiously with mechanical pulse lavage irrigation. I now tapped and a Biolox delta ceramic femoral head +5 36 mm. I made sure it was stable and secure. I now reduced the hip. I again took the hip through a 3 range of motion disengagement Sparr noted good stability. C-arm was brought in confirming adequate alignment of the components and spot films obtained to document that. The C-arm was pulled back. The wound was irrigated copiously. The fascia was repaired with #1 Vicryl. The subcutaneous soft tissues repaired with 2-0 Vicryl. The skin was repaired with a running subcuticular stitch augmented with skin glue. Sterile dressings were applied. The patient was awakened, transferred to recovery in stable satisfactory condition. Casper MONTANEZ assisted in all aspects of the procedure.
--- NOTE | 2024-01-03 09:55 | XR ---
Left hip and left hip fluoroscopy. HISTORY: Reduction of prosthetic left hip dislocation. COMPARISON: 01/01/2024. TECHNIQUE: Single spot film of the left hip was obtained along with 3.2 seconds of fluoroscopy. FINDINGS: There has been satisfactory post reduction of the prosthetic left hip dislocation. There is near-eleni omic alignment. There is no fracture.
[2024-01-03] MEDS: HYDROmorphone 0.5 MG/0.5 ML SYRINGE IVP ONE (10:16)
[2024-01-03 10:24] LABS: Glucose,Whole Blood 148 mg/dL (70-110)
[2024-01-03 11:29] LABS: Glucose,Whole Blood 170 mg/dL (70-110)
[2024-01-03] MEDS: LACTATED RINGERS 1,000 ML IV SCH (11:30)
[2024-01-03] MEDS: traMADol 50 MG TAB PO PRN (12:41)
--- NOTE | 2024-01-03 12:57 | P.PN ---
Subjective Progress Note Date: 01/03/24 Hospital course: Patient is a very pleasant 53-year-old male with a past medical history of alcoholic liver on rifaximin 550 mg twice daily, type II nhc-jmbhmsg-ghyeinise diabetes mellitus, GERD, and previous opioid dependence currently on Suboxone. He is admitted under orthopedic surgery secondary to recurrent periprosthetic left hip dislocation. We were consulted for medical clearance and medical management throughout hospitalization. Physical exam: Patient seen and fully evaluated at the bedside this morning upon return from revision of left total hip arthroplasty. He currently reports postoperative pain is controlled stating only mild burning at incision site. He denies experiencing any postoperative nausea or vomiting and is tolerating clear liquid diet at this time, diet to be advanced as patient tolerates. Vital signs reviewed and stable. General: Nontoxic, no distress and appears stated age. Derm: Skin warm and dry, normal coloration for ethnicity. Head: Atraumatic, normocephalic and symmetric. Eyes: EOMs intact, no lid lag, and anicteric sclera Mouth: no lip lesions, mucus membranes moist Cardiovascular: Bradycardic rate with regular rhythm, normal S1S2, no murmur, positive posterior tibial pulses bilaterally, and cap refill < 2 seconds. Lungs: Respirations even, regular, and unlabored on room air. Lungs CTA bilaterally, no rhonchi, no rales, no wheezing, and no accessory muscle usage. Abdominal: soft, nontender to palpation, no guarding, no appreciable organomegaly Ext: No gross muscle atrophy, no edema, no contractures. Movement and sensation intact. Left lower extremity with minimal shortening and left lateral rotation. Neuro: Speech clear, face symmetrical and CN II-XII grossly intact with no noted focal neuro deficits Psych: Alert and oriented to person, place, time, and situation. Appropriate and pleasant affect. Assessment and Plan of Care: Recurrent periprosthetic left hip dislocation status post revision of left total hip arthroplasty Management per primary orthopedic surgery team, patient scheduled to undergo revision of left total hip arthroplasty tomorrow morning. DVT prophylaxis, pain management, activity advancement, weightbearing, and PT/OT per primary admitting orthopedic surgery team. Currently on DVT prophylaxis with Lovenox 40 mg daily. Type II tgz-umeoilf-chnntuuue diabetes mellitus with mild hyperglycemia Blood glucose 170, hemoglobin A1c was 5.8% Hold metformin pending upcoming revision of left total hip arthroplasty tentatively scheduled for tomorrow morning. Patient placed on glycemic protocol with NovoLog sliding scale. Asymptomatic bradycardia EKG reviewed showing sinus bradycardia at 52 bpm with no noted T wave or ST abnormalities showing no signs of acute ischemia upon personal review and interpretation Alcoholic liver cirrhosis Continue rifaximin 550 mg twice daily. Data and imaging reviewed: Vital signs reviewed and stable. Blood pressure 115/79, heart rate 56, respiratory rate 18, temp 97.8 F, and SpO2 of 100%. Morning preoperative labs reviewed. CBC showing bicytopenia with WBC count of 3.3 and hemoglobin of 12.0. BMP unremarkable. Liver profile showing normal findings. Magnesium also normal at 2.2. Thank you for allowing us to participate in the care of this pleasant patient. Do not hesitate to contact us with questions. Someone can be reached from the [facility] hospitalist group all hours of the day at [phone] or via [employer]. Patient was seen independently by Nurse Pracitioner. This document was prepared using [employer] dictation software. Please allow for errors in concrete block molder, while rare they do occur. I reviewed the documentation as provided by the WILMA above, who is the original author of this note. I agree with the documented assessment and plan, with the following changes: none Objective - Vital Signs Vital signs: Vital Signs Temp 97.8 F 01/03/24 07:40 Pulse 86 01/03/24 07:40 Resp 18 01/03/24 07:40 BP 117/68 01/03/24 07:40 Pulse Ox 96 01/03/24 07:40 FiO2 Intake & Output 01/02/24 01/03/24 01/03/24 18:59 06:59 18:59 Intake Total 1 Output Total 900 Balance -900 1 Intake: IV 1 Output: Urine 900 Other: # Voids 5 - Labs CBC & Chem 7: 01/04/24 04:41 01/04/24 04:41 Labs: Abnormal Lab Results - Last 24 Hours (Table) 01/02/24 01/03/24 01/03/24 Range/Units 16:23 05:02 05:02 WBC 3.3 L (3.8-10.6) k/uL Hgb 12.0 L (13.0-17.5) gm/dL Hct 37.5 L (39.0-53.0) % Creatinine 0.60 L (0.66-1.25) mg/dL Glucose 123 H (74-99) mg/dL POC Glucose (mg/dL) 128 H (70-110) mg/dL
[2024-01-03] MEDS ORDERED: traMADol 50 MG TAB PO SCH (13:00)
[2024-01-03 16:54] LABS: Glucose,Whole Blood 158 mg/dL (70-110)
--- NOTE | 2024-01-03 19:20 | P.ANPRN ---
Procedure Note - Anesthesia - Nerve Block Performed Left Bang Single Time Out Performed: Yes Date of Procedure: 01/03/24 Procedure Start Time: 10:30 Procedure Stop Time: 10:36 Location of Patient: Phase I Indication: Acute Post-Operative Pain, Requested by Surgeon Sedation Type: Sedate with meaningful contact maintained Preparation: Sterile Prep Position: Supine Needle Types: Pajunk Needle Gauge: 21 Ultrasound used to visualize needle placement: Yes Ultrasound used to observe medication spread: Yes Blood Aspirated: No Pain Paresthesia on Injection Noted: No Resistance on Injection: Normal Image Stored and Saved: Yes Events: Uneventful and Well Tolerated (We again 0.5% 20 cc plus dexamethasone 4 mg)
[2024-01-03 19:59] LABS: Glucose,Whole Blood 177 mg/dL (70-110)
[2024-01-03] MEDS: ACETAMINOPHEN TAB 325 MG TAB PO PRN (20:34)
[2024-01-03] MEDS: SODIUM CHLORIDE 0.9% 500 ML 500 ML IV ONE ×2 (20:35→22:18)
[2024-01-03] MEDS: SENNOSIDES-DOCUSATE SODIUM 1 EACH TAB PO SCH (22:16)
[2024-01-04] MEDS: SODIUM CHLORIDE 0.9% 500 ML 500 ML IV ONE ×2 (01:11→03:46)
[2024-01-04 04:39] LABS: Glucose,Whole Blood 125 mg/dL (70-110)
[2024-01-04 05:26] LABS: Basophils % (A) 0 %; Eosinophils % (A) 1 %; HCT 26.8 % (39.0-53.0); Lymphocytes % (A) 28 %; MCH 27.2 pg (25.0-35.0); MCHC 32.5 g/dL (31.0-37.0); MCV 83.6 fL (80.0-100.0); Mean Platelet Volume 8.3; Monocytes # (A) 0.3 k/uL (0-1.0); Monocytes % (A) 8 %; Neutrophils # (A) 2.1 k/uL (1.3-7.7); Neutrophils % (A) 61 %; Platelet Count 130 k/uL (150-450); RBC 3.21 m/uL (4.30-5.90); RDW 15.2 % (11.5-15.5); WBC 3.5 k/uL (3.8-10.6)
[2024-01-04 05:27] LABS: HGB 8.7 gm/dL (13.0-17.5)
[2024-01-04 06:46] LABS: Glucose,Whole Blood 120 mg/dL (70-110)
[2024-01-04] MEDS: ENOXAPARIN 40 MG/0.4 ML SYRINGE SQ SCH (08:39)
[2024-01-04] MEDS: FAMOTIDINE 20 MG TAB PO SCH (08:39)
[2024-01-04 08:44] LABS: ALT 14 U/L (10-49); AST 26 U/L (14-35); Albumin 3.4 g/dL (3.8-4.9); Albumin/Globulin Ratio 1.89 Ratio (1.60-3.17); Alkaline Phosphatase 64 U/L (41-126); BUN/Creat Ratio 14.29 Ratio (12.00-20.00); Calcium 8.8 mg/dL (8.7-10.3); Carbon Dioxide 26.7 mmol/L (21.6-31.8); Chloride 105 mmol/L (96-109); Globulin 1.8 g/dL (1.6-3.3); Glucose 115 mg/dL (70-110); Magnesium 1.9 mg/dL (1.5-2.4); Potassium 4.4 mmol/L (3.5-5.5); Sodium 140 mmol/L (135-145); Total Bilirubin 0.2 mg/dL (0.3-1.2); Total Protein 5.2 g/dL (6.2-8.2)
--- NOTE | 2024-01-04 10:28 | P.PN ---
Subjective Progress Note Date: 01/04/24 Principal diagnosis: Recurrent periprosthetic left hip dislocation Patient was examined today at bedside, he was resting in the ICU. Denies any headaches, lightheadedness, I was contacted a few different times throughout the night with regards to patient's low blood pressure. Patient had received 2 different 500 cc fluid boluses with minimal improvement. After discussion with internal medicine, patient was transferred to the ICU for further evaluation and management. Today at bedside, he seems comfortable resting in his hospital chair. Patient states that the pain is well-controlled, he did take some tramadol yesterday, he is trying to avoid heavier narcotics due to previous addiction issues. He has also resumed his normal Suboxone. He did receive a block yesterday in the recovery room which he feels is continuing to help with the overall pain. Patient has not put much weight through the extremity at this time, he is hoping to work with physical therapy today. Patient denies any chest pain or shortness of breath at this time. Objective - Vital Signs Vital signs: Vital Signs Temp 98.2 F 01/04/24 08:00 Pulse 71 01/04/24 08:00 Resp 20 01/04/24 08:00 BP 116/64 01/04/24 09:39 Pulse Ox 98 01/04/24 08:00 FiO2 Intake & Output 01/03/24 01/04/24 01/04/24 18:59 06:59 18:59 Intake Total 1001 Output Total 50 2150 Balance 951 -2150 Weight 91.9 kg Intake: IV 1001 Output: Urine 2150 Estimated Blood Loss 50 Other: # Voids 1 - Exam Left lower extremity: Foam dressing is in good position and condition. There is minimal soft tissue swelling and ecchymosis surrounding the medial and lateral aspects of the incision. Calf is soft, no tenderness with palpation. Plantar flexion, dorsiflexion, EHL, FHL are intact. Sensory exam to light touch throughout the extremity is intact, dorsal pedis pulses 2+. - Labs CBC & Chem 7: 01/04/24 04:41 01/04/24 04:41 Labs: Abnormal Lab Results - Last 24 Hours (Table) 01/03/24 01/03/24 01/03/24 Range/Units 10:22 11:28 16:53 WBC (3.8-10.6) k/uL RBC (4.30-5.90) m/uL Hgb (13.0-17.5) gm/dL Hct (39.0-53.0) % Plt Count (150-450) k/uL Glucose (70-110) mg/dL POC Glucose (mg/dL) 148 H 170 H 158 H (70-110) mg/dL Total Bilirubin (0.3-1.2) mg/dL Total Protein (6.2-8.2) g/dL Albumin (3.8-4.9) g/dL 01/03/24 01/04/24 01/04/24 Range/Units 19:56 04:37 04:41 WBC (3.8-10.6) k/uL RBC (4.30-5.90) m/uL Hgb (13.0-17.5) gm/dL Hct (39.0-53.0) % Plt Count (150-450) k/uL Glucose 115 H (70-110) mg/dL POC Glucose (mg/dL) 177 H 125 H (70-110) mg/dL Total Bilirubin 0.2 L (0.3-1.2) mg/dL Total Protein 5.2 L (6.2-8.2) g/dL Albumin 3.4 L (3.8-4.9) g/dL 01/04/24 01/04/24 Range/Units 04:41 06:44 WBC 3.5 L (3.8-10.6) k/uL RBC 3.21 L (4.30-5.90) m/uL Hgb 8.7 L D (13.0-17.5) gm/dL Hct 26.8 L (39.0-53.0) % Plt Count 130 L (150-450) k/uL Glucose (70-110) mg/dL POC Glucose (mg/dL) 120 H (70-110) mg/dL Total Bilirubin (0.3-1.2) mg/dL Total Protein (6.2-8.2) g/dL Albumin (3.8-4.9) g/dL Assessment and Plan Assessment: Postoperative day #1 status post revision direct anterior left total hip arthroplasty Acute blood loss anemia, expected surgical outcome Hypotension Other medical comorbidities Plan: On orthopedic standpoint the patient seems to be stable at this time. Recommending weight-bear as tolerated in the use of a walker. PT/OT evaluation later today Pain control, continue tramadol as needed, also continue patient's Suboxone Ferrous sulfate 325 mg twice daily has been ordered for blood loss anemia Other medical specialty recommendations appreciated Will continue to follow patient during hospital stay Time with Patient: Less than 30
[2024-01-04 11:40] LABS: Glucose,Whole Blood 123 mg/dL (70-110)
--- NOTE | 2024-01-04 13:04 | P.PN ---
Subjective Progress Note Date: 01/04/24 Subjective: Patient seen and examined at bedside. Was hypotensive, moved to 3 S., no beds available, then moved to ICU. Currently denies any lightheadedness, chest pain, shortness of breath, urinary or bowel complaints. Pertinent positives and negatives as discussed above, a complete review of systems was performed and all other systems are negative. Vitals Signs Reviewed. General: Nontoxic, no distress, appears at stated age Derm: Warm, dry, dressing clean, dry, intact Head: Atraumatic, normocephalic, symmetric Eyes: EOMI, no lid lag, anicteric sclera Mouth: No lip lesion, mucus membranes moist Cardiovascular: S1S2 reg, no murmur Lungs: CTA bilateral, no rhonchi, no rales, no accessory muscle use Abdominal: Soft, nontender to palpation, no guarding, no appreciable organomegal y Ext: No gross muscle atrophy, no edema, no contractures Neuro: CN II-XI grossly intact, no focal neuro deficits Psych: Alert, oriented, appropriate affect Data Reviewed Today: Pertinent Labs: WBC 3.5, hemoglobin 8.7, creatinine 0.7, blood sugars range between 115 or 177 Imaging: No new imaging Assessment and Plan: Hypotension, resolved Acute blood loss anemia, anticipated outcome of surgery Repeat hemoglobin tomorrow, if stable or improving, patient can be discharged Recurrent periprosthetic left hip dislocation status post revision of left total hip arthroplasty Management per primary orthopedic surgery team DVT prophylaxis, pain management, activity advancement, weightbearing, and PT/OT per primary admitting orthopedic surgery team. Currently on DVT prophylaxis with Lovenox 40 mg daily. Type II [id number] diabetes mellitus with mild hyperglycemia Blood glucose 170, hemoglobin A1c was 5.8% Hold metformin Patient placed on glycemic protocol with NovoLog sliding scale, monitor for hypoglycemia Asymptomatic bradycardia EKG reviewed showing sinus bradycardia at 52 bpm with no noted T wave or ST abnormalities showing no signs of acute ischemia Alcoholic liver cirrhosis Continue rifaximin 550 mg twice daily. Depressionsertraline 100 twice daily, trazodone 100 at night Restless legropinirole 2 at night Thank you for allowing us to participate in the care of this pleasant patient. Do not hesitate to contact us with questions. Someone can be reached from the [facility] hospitalist group all hours of the day at [phone] or via perfect serve. Objective - Vital Signs Vital signs: Vital Signs Temp 98.2 F 01/04/24 08:00 Pulse 71 01/04/24 08:00 Resp 20 01/04/24 08:00 BP 116/64 01/04/24 09:39 Pulse Ox 98 01/04/24 08:00 FiO2 Intake & Output 01/03/24 01/04/24 01/04/24 18:59 06:59 18:59 Intake Total 1001 Output Total 50 2150 Balance 951 -2150 Weight 91.9 kg Intake: IV 1001 Output: Urine 2150 Estimated Blood Loss 50 Other: # Voids 1 - Labs CBC & Chem 7: 01/04/24 04:41 01/04/24 04:41 Labs: Abnormal Lab Results - Last 24 Hours (Table) 01/03/24 01/03/24 01/04/24 Range/Units 16:53 19:56 04:37 WBC (3.8-10.6) k/uL RBC (4.30-5.90) m/uL Hgb (13.0-17.5) gm/dL Hct (39.0-53.0) % Plt Count (150-450) k/uL Glucose (70-110) mg/dL POC Glucose (mg/dL) 158 H 177 H 125 H (70-110) mg/dL Total Bilirubin (0.3-1.2) mg/dL Total Protein (6.2-8.2) g/dL Albumin (3.8-4.9) g/dL 01/04/24 01/04/24 01/04/24 Range/Units 04:41 04:41 06:44 WBC 3.5 L (3.8-10.6) k/uL RBC 3.21 L (4.30-5.90) m/uL Hgb 8.7 L D (13.0-17.5) gm/dL Hct 26.8 L (39.0-53.0) % Plt Count 130 L (150-450) k/uL Glucose 115 H (70-110) mg/dL POC Glucose (mg/dL) 120 H (70-110) mg/dL Total Bilirubin 0.2 L (0.3-1.2) mg/dL Total Protein 5.2 L (6.2-8.2) g/dL Albumin 3.4 L (3.8-4.9) g/dL 01/04/24 Range/Units 11:38 WBC (3.8-10.6) k/uL RBC (4.30-5.90) m/uL Hgb (13.0-17.5) gm/dL Hct (39.0-53.0) % Plt Count (150-450) k/uL Glucose (70-110) mg/dL POC Glucose (mg/dL) 123 H (70-110) mg/dL Total Bilirubin (0.3-1.2) mg/dL Total Protein (6.2-8.2) g/dL Albumin (3.8-4.9) g/dL
[2024-01-04 16:45] LABS: Glucose,Whole Blood 105 mg/dL (70-110)
[2024-01-04] MEDS: FERROUS SULFATE 325 MG TAB PO SCH (16:52)
[2024-01-04 19:59] LABS: Glucose,Whole Blood 151 mg/dL (70-110)
[2024-01-05 01:57] VITALS: PULSE 72
[2024-01-05 06:03] LABS: Glucose,Whole Blood 126 mg/dL (70-110)
[2024-01-05 08:07] VITALS: BP 84/48; TEMP 97.7
[2024-01-05 11:15] VITALS: RESP 16
[2024-01-05 11:39] LABS: Glucose,Whole Blood 128 mg/dL (70-110)
[2024-01-05 12:07] LABS: Basophils # (A) 0.01 X 10*3/uL (0.00-0.10); Basophils % (A) 0.3 %; Eosinophils # (A) 0.06 X 10*3/uL (0.04-0.35); Eosinophils % (A) 1.7 %; HCT 27.4 % (39.6-50.0); HGB 8.6 g/dL (13.0-17.0); Lymphocytes # (A) 0.97 X 10*3/uL (0.90-5.00); Lymphocytes % (A) 26.9 %; MCH 26.8 pg (27.0-32.0); MCHC 31.4 g/dL (32.0-37.0); MCV 85.4 FL (80.0-97.0); Mean Platelet Volume 11.3 FL (9.5-12.2); Monocytes # (A) 0.38 X 10*3/uL (0.20-1.00); Monocytes % (A) 10.5 %; NRBC Per 100 WBC 0 X 10*3/uL (0.00-0.01); Neutrophils # (A) 2.18 X 10*3/uL (1.80-7.70); Neutrophils % (A) 60.3 %; Platelet Count 143 X 10*3/uL (140-440); RBC 3.21 X 10*6/uL (4.40-5.60); RDW 15.2 % (11.5-14.5); WBC 3.61 X 10*3/uL (4.50-10.00)
--- NOTE | 2024-01-05 12:47 | P.PN ---
Subjective Progress Note Date: 01/05/24 Principal diagnosis: Recurrent periprosthetic left hip dislocation Patient was examined today, he was moved to a medical/surgical floor. His blood pressure seems to have stabilized. Patient's hemoglobin today remains at 8.6. Patient denies any lightheadedness, excessive fatigue at this time. Patient is having very minimal discomfort in the left lower extremity at this time. Patient denies any chest pain or shortness of breath at this time. Objective - Vital Signs Vital signs: Vital Signs Temp 97.7 F 01/05/24 07:28 Pulse 72 01/05/24 10:57 Resp 16 01/05/24 10:57 BP 84/48 01/05/24 07:28 Pulse Ox 100 01/05/24 07:28 FiO2 Intake & Output 01/04/24 01/05/24 01/05/24 18:59 06:59 18:59 Output Total 700 700 650 Balance -700 -700 -650 Output: Urine 700 700 650 Other: Voiding Method Urinal - Exam Left lower extremity: Foam dressing is in good position and condition. There is minimal soft tissue swelling and ecchymosis surrounding the medial and lateral aspects of the incision. Calf is soft, no tenderness with palpation. Plantar flexion, dorsiflexion, EHL, FHL are intact. Sensory exam to light touch throughout the extremity is intact, dorsal pedis pulses 2+. - Labs CBC & Chem 7: 01/05/24 06:03 01/04/24 04:41 Labs: Abnormal Lab Results - Last 24 Hours (Table) 01/04/24 01/05/24 01/05/24 Range/Units 19:58 06:02 06:03 WBC 3.61 L (4.50-10.00) X 10*3/uL RBC 3.21 L (4.40-5.60) X 10*6/uL Hgb 8.6 L (13.0-17.0) g/dL Hct 27.4 L (39.6-50.0) % MCH 26.8 L (27.0-32.0) pg MCHC 31.4 L (32.0-37.0) g/dL RDW 15.2 H (11.5-14.5) % POC Glucose (mg/dL) 151 H 126 H (70-110) mg/dL 01/05/24 Range/Units 11:38 WBC (4.50-10.00) X 10*3/uL RBC (4.40-5.60) X 10*6/uL Hgb (13.0-17.0) g/dL Hct (39.6-50.0) % MCH (27.0-32.0) pg MCHC (32.0-37.0) g/dL RDW (11.5-14.5) % POC Glucose (mg/dL) 128 H (70-110) mg/dL Assessment and Plan Assessment: Postoperative day #2 status post revision direct anterior left total hip arthroplasty Acute blood loss anemia, expected surgical outcome Hypotension Other medical comorbidities Plan: Pain control, patient will resume Suboxone at discharge Ferrous sulfate 325 mg twice daily for 1 month Other medical specialty recommendations appreciated Orthopedically patient stable for discharge home today Time with Patient: Less than 30
--- NOTE | 2024-01-05 12:51 | P.DS ---
Providers Date of admission: 01/01/24 12:40 Expected date of discharge: 01/05/24 Attending physician: Malcolm Jimenes Consults: 01/01/24 20:43 Consult Physician Routine Consulting Provider: Eli Stiles Consult Reason/Comments: Medical Management Do you want consulting provider notified?: Yes Primary care physician: [place] Hospital Course: Date of admission: 01/01/2024 Date of discharge: 01/05/2024 Admission diagnosis: Periprosthetic left hip dislocation Discharge diagnosis: Hardware failure left hip acetabular liner, status post revision left total hip arthroplasty Attending physician: Dr. Grewal Surgical procedures: Revision left direct anterior total hip arthroplasty Brief history: Patient is a 53-year-old male with a history of a previous direct anterior left total hip arthroplasty from April 2023. Patient was evaluated in the outpatient setting on 01/01/2024 for a hip dislocation, he was directly admitted to [facility] with the plan for a closed reduction. Patient underwent initial closed reduction procedure in OR, patient subsequently dislocated once being back to the floor. Patient was then scheduled for a revision direct anterior left total hip arthroplasty on 01/03/2024. Hospital course: Details of patient's surgery can be found in operative report. Patient tolerated the procedure well and was subsequently transported to orthopedic floor. Patient's orthopeidc and medical care was provided daily. Patient had daily laboratory tests performed for evaluation of overall blood counts. Patient had daily physical therapy to include strengthening range of motion as well as education with walker ambulation. Patient was treated with Lovenox for their postoperative DVT prophylaxis during their inpatient stay. Patient did develop significant low blood pressure after surgery, he did spend 1 night in the ICU for further monitoring. No acute cardiac process has been identified, patient's blood pressure is slowly returned to normal. Patient reported satisfactory pain control with oral pain medications by postoperative day 1. Patient showed satisfactory progress with physical therapy. Patient moved steadily through the program and had no difficulty meeting the goals by postoperative day 2. Given patient's otherwise satisfactory course and having met physical therapy goals, plan is to discharge patient home on postoperative day 2. Discharge condition/disposition: Patient will be discharged home in stable condition. Discharge medications: Instructions are given on resumption of patient's normal daily medications per primary care recommendation, in addition patient will be prescribed ferrous sulfate 325 mg. Discharge instructions: 1. Wound care and infection precautions, keep incision dry and covered while showering, no lotions, creams, moisturizers. No soaking, tubs, pools, hottubs. Do not scrub over the incision. 2. Weight-bear as tolerated with walker / cane until follow-up. 3. Ice and elevate when necessary. Do not exceed 20 minutes per hour with ice pack. 4. Utilize compression sleeve until seen at first follow up appointment. 5. Visiting nursing care. 6. Home physical therapy. 7. Pain meds and anticoagulants per prescription. 8. Pain medication has potential to cause constipation. Increase oral fluid and fiber intake. Contact primary care provider if you have not had a bowel movement within 48 hours after discharge 9. No anti-inflammatory medication until discussed at first post operative visit, this including Motrin, Aleve, Mobic, Diclofenac. 10. Follow up in office at 2 weeks postop with Casper Parra PA-C/Roberto Calle 11. Follow up with your primary care doctor 7-10 days after discharge. 12. Contact [facility] with any questions, . Patient Condition at Discharge: Fair Plan - Discharge Summary Discharge Rx Participant: No New Discharge Prescriptions: New Ferrous Sulfate [Iron (65 MG Elemental)] 325 mg PO DAILY #60 tab Continue Thiamine [Vitamin B-1] 100 mg PO DAILY #30 tab Folic Acid 1 mg PO DAILY Rifaximin [Xifaxan] 550 mg PO BID Pregabalin [Lyrica] 200 mg PO TID Omeprazole [PriLOSEC] 40 mg PO BID #60 cap Buprenorphine HCl/Naloxone HCl [Suboxone 8 mg-2 mg Sl Film] 1 film SL TID Magnesium Oxide [Mag-Ox] 400 mg PO HS traZODone HCL 100 mg PO HS rOPINIRole HCL [Requip] 2 mg PO HS metFORMIN HCL 500 mg PO BID Sertraline [Zoloft] 100 mg PO BID Cholecalciferol (Vitamin D3) [Vitamin D3 (125 MCG = 5,000 IU)] 125 mcg PO DAILY Mv-Min/Folic/K1/Lycopen/Lutein [Centrum Silver Men Tablet] 1 tab PO DAILY Discharge Medication List Thiamine [Vitamin B-1] 100 mg PO DAILY #30 tab 11/06/16 [Rx] Folic Acid 1 mg PO DAILY 05/20/18 [History] Rifaximin [Xifaxan] 550 mg PO BID 11/21/19 [History] Pregabalin [Lyrica] 200 mg PO TID 02/14/20 [History] Omeprazole [PriLOSEC] 40 mg PO BID #60 cap 03/19/20 [Rx] Buprenorphine HCl/Naloxone HCl [Suboxone 8 mg-2 mg Sl Film] 1 film SL TID 05/18/20 [History] Sertraline [Zoloft] 100 mg PO BID 07/28/22 [History] Cholecalciferol (Vitamin D3) [Vitamin D3 (125 MCG = 5,000 IU)] 125 mcg PO DAILY 05/05/23 [History] Magnesium Oxide [Mag-Ox] 400 mg PO HS 05/05/23 [History] metFORMIN HCL 500 mg PO BID 05/05/23 [History] rOPINIRole HCL [Requip] 2 mg PO HS 05/05/23 [History] traZODone HCL 100 mg PO HS 05/05/23 [History] Mv-Min/Folic/K1/Lycopen/Lutein [Centrum Silver Men Tablet] 1 tab PO DAILY 01/01/24 [History] Ferrous Sulfate [Iron (65 MG Elemental)] 325 mg PO DAILY #60 tab 01/05/24 [Rx] Follow up Appointment(s)/Referral(s): Partha Parra PAC [PHYSICIAN PARAMEDIC RN] - 2 Weeks Den Simpson DO [Primary Care Provider] - 1-2 days Activity/Diet/Wound Care/Special Instructions: Orthopedic Discharge Instructions: 1. Wound care and infection precautions, keep incision dry and covered while showering, no lotions, creams, moisturizers. No soaking, pools, hot tubs. Do not scrub over incision. 2. Weight-bear as tolerated with walker / cane until follow-up. 3. Ice and elevate when necessary. Do not exceed 20 minutes per hour with ice pack. 4. Utilize compression sleeve until seen at first follow up appointment. 5. Pain meds and anticoagulants per prescription. 6. Pain medication has potential to cause constipation. Increase oral fluid and fiber intake. Contact primary care provider if you have not had a bowel movement within 48 hours after discharge. 7. No anti-inflammatory medication until discussed at first post operative visit, this including Motrin, Aleve, Mobic, Diclofenac. 8. Follow up in office at 2 weeks postop with Casper Parra PA-C/Roberto Stewart PA-C 9. Follow up with your primary care doctor 7-10 days after discharge. 10. Contact [facility] with any questions, . Wound care instructions: 1. Okay to remove surgical dressing as of 01/11/2024 2. Okay to shower directly over the incision after removal of dressing Discharge Disposition: HOME WITH HOME HEALTH SERVICES
--- NOTE | 2024-01-05 13:10 | P.PN ---
Subjective Progress Note Date: 01/05/24 Subjective: Patient seen and examined at bedside. No acute events overnight. Denies any lightheadedness. Pertinent positives and negatives as discussed above, a complete review of systems was performed and all other systems are negative. Vitals Signs Reviewed. General: Nontoxic, no distress, appears at stated age Derm: Warm, dry, dressing clean, dry, intact Head: Atraumatic, normocephalic, symmetric Eyes: EOMI, no lid lag, anicteric sclera Mouth: No lip lesion, mucus membranes moist Cardiovascular: S1S2 reg, no murmur Lungs: CTA bilateral, no rhonchi, no rales, no accessory muscle use Abdominal: Soft, nontender to palpation, no guarding, no appreciable organomegaly Ext: No gross muscle atrophy, no edema, no contractures Neuro: CN II-XI grossly intact, no focal neuro deficits Psych: Alert, oriented, appropriate affect Data Reviewed Today: Pertinent Labs: WBC 3.61, hemoglobin 8.6, blood sugars range between 10 5-1 51 Imaging: No new imaging Assessment and Plan: Hypotension, resolved Acute blood loss anemia, anticipated outcome of surgery, hemoglobin stable Recurrent periprosthetic left hip dislocation status post revision of left total hip arthroplasty - Management per primary orthopedic surgery team -DVT prophylaxis, pain management, activity advancement, weightbearing, and PT/OT per primary admitting orthopedic surgery team. -Currently on DVT prophylaxis with Lovenox 40 mg daily. Type II [id number] diabetes mellitus with mild hyperglycemia -Hold metformin -Patient placed on glycemic protocol with NovoLog sliding scale, monitor for hypoglycemia Asymptomatic bradycardia Alcoholic liver cirrhosis - Continue rifaximin 550 mg twice daily. Depression-sertraline 100 twice daily, trazodone 100 at night Restless leg-ropinirole 2 at night Patient is medically optimized for discharge. Thank you for allowing us to participate in the care of this pleasant patient. Do not hesitate to contact us with questions. Someone can be reached from the [facility] hospitalist group all hours of the day at [phone] or via perfect serve. Objective - Vital Signs Vital signs: Vital Signs Temp 97.7 F 01/05/24 07:28 Pulse 72 01/05/24 10:57 Resp 16 01/05/24 10:57 BP 84/48 01/05/24 07:28 Pulse Ox 100 01/05/24 07:28 FiO2 Intake & Output 01/04/24 01/05/24 01/05/24 18:59 06:59 18:59 Output Total 700 700 650 Balance -700 -700 -650 Output: Urine 700 700 650 Other: Voiding Method Urinal - Labs CBC & Chem 7: 01/05/24 06:03 01/04/24 04:41 Labs: Abnormal Lab Results - Last 24 Hours (Table) 01/04/24 01/05/24 01/05/24 Range/Units 19:58 06:02 06:03 WBC 3.61 L (4.50-10.00) X 10*3/uL RBC 3.21 L (4.40-5.60) X 10*6/uL Hgb 8.6 L (13.0-17.0) g/dL Hct 27.4 L (39.6-50.0) % MCH 26.8 L (27.0-32.0) pg MCHC 31.4 L (32.0-37.0) g/dL RDW 15.2 H (11.5-14.5) % POC Glucose (mg/dL) 151 H 126 H (70-110) mg/dL 01/05/24 Range/Units 11:38 WBC (4.50-10.00) X 10*3/uL RBC (4.40-5.60) X 10*6/uL Hgb (13.0-17.0) g/dL Hct (39.6-50.0) % MCH (27.0-32.0) pg MCHC (32.0-37.0) g/dL RDW (11.5-14.5) % POC Glucose (mg/dL) 128 H (70-110) mg/dL
== END 2024-01-05 13:59 | disposition home health service (06) | DRG 467 ==
LOC: EC 12:20 → 4SSUR 12:39 → OBSVTOIN 12:40 → 4SSUR 16:43 → 2SICU 01-04 04:37 → 4SSUR 01-04 14:57
PROVIDERS: ADMIT Orthopaedic Surgery; ATTEND Orthopaedic Surgery
PROC: 0SWBXJZ Revision of Synthetic Substitute in Left Hip Joint, External Approach (ICD-10-PCS; 2024-01-01)
PROC: 0SUE09Z Supplement Left Hip Joint, Acetabular Surface with Liner, Open Approach (ICD-10-PCS; principal; 2024-01-03 07:21)
PROC: 0SPS0JZ Removal of Synthetic Substitute from Left Hip Joint, Femoral Surface, Open Approach (ICD-10-PCS; principal; 2024-01-03 07:21)
PROC: 0SRS03Z Replacement of Left Hip Joint, Femoral Surface with Ceramic Synthetic Substitute, Open Approach (ICD-10-PCS; principal; 2024-01-03 07:21)
PROC: 0SPB09Z Removal of Liner from Left Hip Joint, Open Approach (ICD-10-PCS; principal; 2024-01-03 07:21)
DX: T84.021A Dislocation of internal left hip prosthesis, initial encounter (principal); D62 Acute posthemorrhagic anemia; Y79.2 Prosthetic and other implants, materials and accessory orthopedic devices associated with adverse incidents; X50.0XXA Overexertion from strenuous movement or load, initial encounter; K70.30 Alcoholic cirrhosis of liver without ascites; F10.11 Alcohol abuse, in remission; E11.40 Type 2 diabetes mellitus with diabetic neuropathy, unspecified; F17.290 Nicotine dependence, other tobacco product, uncomplicated; F32.A Depression, unspecified; G25.81 Restless legs syndrome; Z87.01 Personal history of pneumonia (recurrent); G89.29 Other chronic pain; K21.9 Gastro-esophageal reflux disease without esophagitis; Z83.3 Family history of diabetes mellitus; Z79.84 Long term (current) use of oral hypoglycemic drugs; Z79.899 Other long term (current) drug therapy
CPT/HCPCS: 36415; 64447; 73501; 73502; 80053; 83036; 83735; 85025; 85027; 85610; 85730; 86850; 86900; 86901; 93005; 99285

== ENCOUNTER → 2024-02-05 | Outpatient (CLI) | payer BC, MEDICARE ==
[2024-02-05 15:47] LABS: Basophils # (A) 0.02 X 10*3/uL (0.00-0.10); Basophils % (A) 0.4 %; Eosinophils # (A) 0.04 X 10*3/uL (0.04-0.35); Eosinophils % (A) 0.8 %; HCT 35.8 % (39.6-50.0); Lymphocytes # (A) 0.99 X 10*3/uL (0.90-5.00); MCH 26.2 pg (27.0-32.0); MCHC 30.7 g/dL (32.0-37.0); MCV 85.2 FL (80.0-97.0); Mean Platelet Volume 11.3 FL (9.5-12.2); Monocytes % (A) 6.4 %; NRBC Per 100 WBC 0 X 10*3/uL (0.00-0.01); Neutrophils # (A) 3.36 X 10*3/uL (1.80-7.70); Neutrophils % (A) 71.2 %; Platelet Count 164 X 10*3/uL (140-440); RDW 13.9 % (11.5-14.5); WBC 4.72 X 10*3/uL (4.50-10.00)
[2024-02-05 16:02] LABS: ALT 15 U/L (10-49); AST 28 U/L (14-35); Albumin 4.8 g/dL (3.8-4.9); Albumin/Globulin Ratio 1.71 Ratio (1.60-3.17); Alkaline Phosphatase 127 U/L (41-126); Bilirubin, Conjugated <0.20 mg/dL (0.20-0.40); Globulin 2.8 g/dL (1.6-3.3); Total Bilirubin <0.2 mg/dL (0.3-1.2); Total Protein 7.6 g/dL (6.2-8.2)
[2024-02-05 16:36] LABS: INR 0.96 sec (0.93-1.11); Prothrombin Time 10.4 sec (9.9-11.9)
== END | disposition home or self-care (01) ==
LOC: LABWHC1 11:50
PROVIDERS: ATTEND Physician Assistant
DX: K70.30 Alcoholic cirrhosis of liver without ascites (principal)
CPT/HCPCS: 36415; 80076; 82105; 85025; 85610

== ENCOUNTER 2024-04-25 02:18 | Emergency (ER) | payer BC, MEDICARE ==
[2024-04-25 02:25] VITALS: RESP 18; TEMP 97.8
--- NOTE | 2024-04-25 02:44 | ED ---
General Adult HPI - General Chief complaint: Extremity Injury, Lower Stated complaint: LEFT HIP PAIN Time Seen by Provider: 04/25/24 02:21 Source: patient, EMS Mode of arrival: EMS Limitations: no limitations - History of Present Illness Initial comments: Dictation was produced using [employer] dictation software. please excuse any grammatical, word or spelling errors. Chief Complaint: 53-year-old male presents to the ER for left hip pain History of Present Illness: Patient is a 53-year-old male presents with left hip pain. He states he was sleeping when he woke up felt like he dislocated his left hip. Patient has history of left hip surgery. Patient complaining of pain to his left hip. States that his orthopedic surgery that that his hip is Dr. Kay. The ROS documented in this emergency department record has been reviewed and confirmed by me. Those systems with pertinent positive or negative responses have been documented in the HPI. All other systems are other negative and/or noncontributory. - Related Data Home Medications Medication Instructions Recorded Confirmed Folic Acid 1 mg PO DAILY 05/20/18 01/01/24 Rifaximin [Xifaxan] 550 mg PO BID 11/21/19 01/01/24 Pregabalin [Lyrica] 200 mg PO TID 02/14/20 01/01/24 Buprenorphine HCl/Naloxone HCl 1 film SL TID 05/18/20 01/01/24 [Suboxone 8 mg-2 mg Sl Film] Sertraline [Zoloft] 100 mg PO BID 07/28/22 01/01/24 Cholecalciferol (Vitamin D3) 125 mcg PO DAILY 05/05/23 01/01/24 [Vitamin D3 (125 MCG = 5,000 IU)] Magnesium Oxide [Mag-Ox] 400 mg PO HS 05/05/23 01/01/24 metFORMIN HCL 500 mg PO BID 05/05/23 01/01/24 rOPINIRole HCL [Requip] 2 mg PO HS 05/05/23 01/01/24 traZODone HCL 100 mg PO HS 05/05/23 01/01/24 Mv-Min/Folic/K1/Lycopen/Lutein 1 tab PO DAILY 01/01/24 01/01/24 [Centrum Silver Men Tablet] Previous Rx's Medication Instructions Recorded Thiamine [Vitamin B-1] 100 mg PO DAILY #30 tab 11/06/16 Omeprazole [PriLOSEC] 40 mg PO BID #60 cap 03/19/20 Ferrous Sulfate [Iron (65 MG 325 mg PO DAILY #60 tab 01/05/24 Elemental)] Allergies Allergy/AdvReac Type Severity Reaction Status Date / Time No Known Allergies Allergy Verified 04/25/24 02:25 Review of Systems ROS Statement: Those systems with pertinent positive or pertinent negative responses have been documented in the HPI. ROS Other: All systems not noted in ROS Statement are negative. Past Medical History Past Medical History: Diabetes Mellitus, GERD/Reflux, GI Bleed, Liver Disease, Pneumonia, Skin Disorder Additional Past Medical History / Comment(s): Past ETOH abuse-has not drank since 2015, alcoholic liver cirrhosis/portal htn, hepatic encephalopathy, ascites with numerous paracentesis, AMS/high amylase/vented, pancreatitis, upper GI bleed, gastric antral vascular ectasia, pancytopenia r/t cirrhosis, chronic anemia, hiatal hernia, neuropathy bilateral legs/feet and had past sores bilateral feet, chronic back pain. History of Any Multi-Drug Resistant Organisms: None Reported Past Surgical History: Orthopedic Surgery Additional Past Surgical History / Comment(s): Open heart surgery to remove glass from heart (fell into glass on a door), low back surgery, R inguinal hernia repair, EGD, I&D L foot wound. toal hip 2022, hip closed reduction 12/12/23 Past Anesthesia/Blood Transfusion Reactions: No Reported Reaction Past Psychological History: No Psychological Hx Reported Smoking Status: Former smoker, Vaper Past Alcohol Use History: None Reported Past Drug Use History: Marijuana - Past Family History Father History Unknown: Yes Family Medical History: Dementia Additional Family Medical History / Comment(s): Father is living. Mother Family Medical History: Diabetes Mellitus Additional Family Medical History / Comment(s): Mother is . General Exam - General Exam Comments Initial Comments: PHYSICAL EXAM: General Impression: Alert and oriented x3, not in acute distress HEENT: Normocephalic atraumatic, extra-ocular movements intact, pupils equal and reactive to light bilaterally, mucous membranes moist. Cardiovascular: Heart regular rate and rhythm Chest: Able to complete full sentences, no retractions, no tachypnea Abdomen: abdomen soft, non-tender, non-distended, no organomegaly Musculoskeletal: Pulses present and equal in all extremities, no peripheral edema Motor: no focal deficits noted Neurological: CN II-XII grossly intact, no focal motor or sensory deficits noted Skin: Intact with no visualized rashes Psych: Normal affect and mood Left hip; Palpatory tenderness. Held in a slightly flexed position Limitations: no limitations Course Vital Signs 04/25/24 02:21 Temperature 97.8 F Pulse Rate 51 L Respiratory 18 Rate Blood Pressure 117/76 O2 Sat by Pulse 97 Oximetry Procedures - Orthopedic Joint Reduction Joint #1 Consent Obtained: verbal consent, written consent Side: left Joint Reduction Location: hip Analgesia: procedural sedation Technique Used: direct manipulation Post-Reduction Neuro Exam: intact Post-Reduction Vascular Exam: intact Post Reduction X-Ray Obtained: Yes Post Reduction X-Ray Results: reduced Splint Applied: No Patient Tolerated Procedure: well - Procedural Sedation *Procedural Sedation Start Time: 03:13 *Procedural Sedation Stop Time: 03:17 *Risks,benefits, and alternative therapies discussed?: Yes *Patient indicates understanding of risk/benefit discussion?: Yes *Indications: fracture/dislocation reduction *Previous Adverse Reaction to Anesthesia/Sedation?: No *ASA Class: II *Mallampati Airway Score: 2 Preparation: gambling monitor applied, pulse oximeter, capnometry used, supplemental O2 applied IV Propofol Dose (mgs): 150 Patient Tolerated Procedure: well Medical Decision Making - Medical Decision Making Was pt. sent in by a medical professional or institution (LISSETH Oliveira, OCCUPATIONAL THERAPY TECHNICIAN, urgent care, hospital, or long-term...) When possible be specific @ -No Did you speak to anyone other than the patient for history (EMS, parent, family, police, friend...)? What history was obtained from this source @ -No Did you review nursing and triage notes (agree or disagree)? Why? @ -I reviewed and agree with nursing and triage notes Were old charts reviewed (outside hosp., previous admission, EMS record, old EKG, old radiological studies, urgent care reports/EKG's, long-term records)? Report findings @ -No old charts were reviewed Differential Diagnosis (chest pain, altered mental status, abdominal pain women, abdominal pain men, vaginal bleeding, musculoskeletal, weakness, fever, dyspnea, syncope, headache, dizziness, GI bleed, back pain, seizure, CVA, palpatations, mental health)? @ -Hip fracture, hip dislocation, hip strain EKG interpreted by me (3pts min.). @ -None done X-rays interpreted by me (1pt min.). @ -X-ray shows posterior superior left hip dislocation repeat shows successful reduction CT interpreted by me (1pt min.). @ -None done U/S interpreted by me (1pt. min.). @ -None done What testing was considered but not performed or refused? (CT, X-rays, U/S, labs)? Why? @ -None What meds were considered but not given or refused? Why? @ -None Was smoking cessation discussed for >3mins.? @ -No Were there social determinants of health that impacted care today? How? (Homelessness, low income, unemployed, alcoholism, drug addiction, transportation, low edu. Level, literacy, decrease access to med. care, custodial, rehab)? @ -No Was there de-escalation of care discussed even if they declined (Discuss DNR or withdrawal of care, Hospice)? DNR status @ -No What co-morbidities impacted this encounter? (DM, HTN, Smoking, COPD, CAD, Cancer, CVA, ARF, Chemo, Hep., AIDS, mental health diagnosis, sleep apnea, morbid obesity)? @ -None Was patient admitted / discharged? Hospital course, mention meds given and route, prescriptions, significant lab abnormalities, going to OR and other pertinent info. @ -53-year-old male with dislocated left prosthetic hip. Vital signs stable. Procedural sedation was performed with reduction of left hip. Post reduction hip x-rays are reduced. Patient tolerated procedure well. Patient discharged advised follow-up with orthopedic surgery Did you discuss the management of the patient with other professionals (professionals i.e. , PA, OCCUPATIONAL THERAPY TECHNICIAN, lab, RT, psych nurse, child protective services social worker, wire drawer, teacher, highway patrol officer, manager of case management)? Give summary @ -No Was critical care preformed (if so, how long)? @ -No Undiagnosed new problem with uncertain prognosis? @ -No Drug Therapy requiring intensive monitoring for toxicity (Heparin, Nitro, Insulin, Cardizem)? @ -No Were any procedures done? @ -See above Diagnosis/symptom? Acute, or Chronic, or Acute on Chronic? Uncomplicated (without systemic symptoms) or Complicated (systemic symptoms)? @ -Prosthetic hip dislocation Side effects of treatment? @ -No Exacerbation, Progression, or Severe Exacerbation? @ -No Poses a threat to life or bodily function? How? (Chest pain, [place], [place], pneumonia, PE, COPD, DKA, ARF, appy, cholecystitis, CVA, Diverticulitis, Homicidal, Suicidal, threat to staff... and all critical care pts) @ -yes Disposition Clinical Impression: Hip dislocation, left Disposition: HOME SELF-CARE Condition: Good Instructions (If sedation given, give patient instructions): Hip Dislocation (ED) Is patient prescribed a controlled substance at d/c from ED?: No Referrals: Malcolm Jimenes DO [Doctor of Osteopathic Medicine] - 1-2 days Time of Disposition: 04:00
[2024-04-25] MEDS: SODIUM CHLORIDE 0.9% 1,000 ML IV STA (03:03)
[2024-04-25] MEDS: PROPOFOL 10 MG/ML 20 ML VIAL IV ONE (03:13)
--- NOTE | 2024-04-25 03:47 | XR ---
EXAM: XR Left Hip With Pelvis When Performed, 1 View CLINICAL HISTORY: ITS.REASON XR Reason: hip pain TECHNIQUE: Frontal view of the left hip. Time stamp: , 252 hour. COMPARISON: 01/03/24 FINDINGS: Bones/joints: Left femoral prosthesis is superiorly dislocated relative to acetabular prosthesis. No acute fracture. Soft tissues: Unremarkable. IMPRESSION: Left femoral prosthesis is superiorly dislocated relative to acetabular prosthesis.
--- NOTE | 2024-04-25 03:53 | XR ---
EXAM: XR Left Hip With Pelvis When Performed, 1 View CLINICAL HISTORY: ITS.REASON XR Reason: post reduction TECHNIQUE: Frontal view of the left hip. Time stamp: , 332 hour. COMPARISON: Same day at 252 hour IMPRESSION: Left total hip replacement prostheses. Osteopenia.
[2024-04-25 06:17] VITALS: BP 111/70; PULSE 50
== END 2024-04-25 06:00 | disposition home or self-care (01) ==
LOC: EC 02:18
DX: S73.005A Unspecified dislocation of left hip, initial encounter (principal); F17.290 Nicotine dependence, other tobacco product, uncomplicated; Z96.642 Presence of left artificial hip joint; X58.XXXA Exposure to other specified factors, initial encounter
CPT/HCPCS: 73501; 99284; 96360; 27266; J2704

== ENCOUNTER 2024-06-15 19:05 | Emergency (ER) | payer BC, MEDICARE ==
[2024-06-15 19:12] VITALS: TEMP 99.9
[2024-06-15] MEDS: NITROGLYCERIN SL TABS 0.4 MG TAB SUBLINGUAL STA ×2 (19:31→19:59)
[2024-06-15] MEDS: GLUCAGON 1 MG/ML VIAL IVP STA ×2 (19:31→19:58)
--- NOTE | 2024-06-15 19:40 | ED ---
Recheck HPI - General Chief Complaint: Recheck/Abnormal Lab/Rx Stated Complaint: foreign object stuck in throat Time Seen by Provider: 06/15/24 19:17 Source: patient, RN notes reviewed Mode of arrival: EMS Limitations: no limitations - History of Present Illness Initial Comments: This is a 53-year-old male who presents to the emergency department for concerns of a piece of food being stuck in his throat. States that he recently had all of his teeth pulled and he is getting fitted for dentures. However, he ate today without the dentures and thought he had cut his chicken into small enough pieces, but believes that he may have gotten a small piece stuck, as he has had difficulty swallowing. States that he is largely coughing everything up but is still able to swallow small amounts of saliva. - Related Data Home Medications Medication Instructions Recorded Confirmed Folic Acid 1 mg PO DAILY 05/20/18 01/01/24 Rifaximin [Xifaxan] 550 mg PO BID 11/21/19 01/01/24 Pregabalin [Lyrica] 200 mg PO TID 02/14/20 01/01/24 Buprenorphine HCl/Naloxone HCl 1 film SL TID 05/18/20 01/01/24 [Suboxone 8 mg-2 mg Sl Film] Sertraline [Zoloft] 100 mg PO BID 07/28/22 01/01/24 Cholecalciferol (Vitamin D3) 125 mcg PO DAILY 05/05/23 01/01/24 [Vitamin D3 (125 MCG = 5,000 IU)] Magnesium Oxide [Mag-Ox] 400 mg PO HS 05/05/23 01/01/24 metFORMIN HCL 500 mg PO BID 05/05/23 01/01/24 rOPINIRole HCL [Requip] 2 mg PO HS 05/05/23 01/01/24 traZODone HCL 100 mg PO HS 05/05/23 01/01/24 Mv-Min/Folic/K1/Lycopen/Lutein 1 tab PO DAILY 01/01/24 01/01/24 [Centrum Silver Men Tablet] Previous Rx's Medication Instructions Recorded Thiamine [Vitamin B-1] 100 mg PO DAILY #30 tab 11/06/16 Omeprazole [PriLOSEC] 40 mg PO BID #60 cap 03/19/20 Ferrous Sulfate [Iron (65 MG 325 mg PO DAILY #60 tab 01/05/24 Elemental)] Allergies Allergy/AdvReac Type Severity Reaction Status Date / Time No Known Allergies Allergy Verified 06/15/24 19:10 Review of Systems ROS Statement: Those systems with pertinent positive or pertinent negative responses have been documented in the HPI. ROS Other: All systems not noted in ROS Statement are negative. Past Medical History Past Medical History: Diabetes Mellitus, GERD/Reflux, GI Bleed, Liver Disease, Pneumonia, Skin Disorder Additional Past Medical History / Comment(s): Past ETOH abuse-has not drank since 2016, alcoholic liver cirrhosis/portal htn, hepatic encephalopathy, ascites with numerous paracentesis, AMS/high amylase/vented, pancreatitis, upper GI bleed, gastric antral vascular ectasia, pancytopenia r/t cirrhosis, chronic anemia, hiatal hernia, neuropathy bilateral legs/feet and had past sores bilateral feet, chronic back pain. History of Any Multi-Drug Resistant Organisms: None Reported Past Surgical History: Orthopedic Surgery Additional Past Surgical History / Comment(s): Open heart surgery to remove glass from heart (fell into glass on a door), low back surgery, R inguinal hernia repair, EGD, I&D L foot wound. toal hip 2022, hip closed reduction 12/12/23 Past Anesthesia/Blood Transfusion Reactions: No Reported Reaction Past Psychological History: Depression Smoking Status: Former smoker, Vaper Past Alcohol Use History: None Reported Past Drug Use History: Marijuana - Past Family History Father History Unknown: Yes Family Medical History: Dementia Additional Family Medical History / Comment(s): Father is living. Mother Family Medical History: Diabetes Mellitus Additional Family Medical History / Comment(s): Mother is . General Exam Limitations: no limitations General appearance: alert, in no apparent distress Head exam: Present: atraumatic, normocephalic, normal inspection Respiratory exam: Present: normal lung sounds bilaterally. Absent: respiratory distress, wheezes, rales, rhonchi, stridor Cardiovascular Exam: Present: regular rate, normal rhythm, normal heart sounds. Absent: systolic murmur, diastolic murmur, rubs, gallop, clicks GI/Abdominal exam: Present: soft, normal bowel sounds. Absent: distended, tenderness, guarding, rebound, rigid Neurological exam: Present: alert, oriented X3, CN II-XII intact Psychiatric exam: Present: normal affect, normal mood Skin exam: Present: warm, dry, intact, normal color. Absent: rash Course Vital Signs 06/15/24 06/15/24 06/15/24 19:07 21:38 21:43 Temperature 99.9 F H Pulse Rate 70 53 L 53 L Respiratory 18 18 16 Rate Blood Pressure 111/71 105/52 90/60 O2 Sat by Pulse 96 98 100 Oximetry 06/15/24 06/15/24 06/15/24 21:45 21:50 21:55 Temperature Pulse Rate 44 L 42 L 43 L Respiratory 14 14 13 Rate Blood Pressure 88/56 85/60 89/58 O2 Sat by Pulse 100 100 100 Oximetry 06/15/24 06/15/24 06/15/24 22:00 22:05 22:10 Temperature Pulse Rate 43 L 43 L 43 L Respiratory 16 20 16 Rate Blood Pressure 85/56 85/57 95/53 O2 Sat by Pulse 100 100 99 Oximetry 06/15/24 06/15/24 06/16/24 22:15 22:30 00:05 Temperature Pulse Rate 45 L 42 L 45 L Respiratory 49 H 16 14 Rate Blood Pressure 84/66 92/58 103/68 O2 Sat by Pulse 100 100 95 Oximetry Procedures - Orthopedic Joint Reduction Joint #1 Consent Obtained: verbal consent, emergent situation Side: left Joint Reduction Location: hip Analgesia: procedural sedation Technique Used: traction/counter-traction Post-Reduction Neuro Exam: intact Post-Reduction Vascular Exam: intact Post Reduction X-Ray Obtained: Yes Post Reduction X-Ray Results: reduced Splint Applied: Yes Patient Tolerated Procedure: well - Procedural Sedation *Procedural Sedation Start Time: 21:41 *Procedural Sedation Stop Time: 21:45 *Risks,benefits, and alternative therapies discussed?: Yes *Patient indicates understanding of risk/benefit discussion?: Yes *Indications: fracture/dislocation reduction *Previous Adverse Reaction to Anesthesia/Sedation?: No *ASA Class: I *Mallampati Airway Score: 2 Preparation: shelter monitor applied, pulse oximeter, capnometry used, supplemental O2 applied, reversal agents at bedside, suction/airway equipment at bedside, IV secured Fentanyl: IV Fentanyl Dose: 80 Medical Decision Making - Medical Decision Making This is a 53-year-old male who presents to the emergency department for difficulty swallowing. Was pt. sent in by a medical professional or institution? @ -No Did you speak to anyone other than the patient for history? @ -No Did you review nursing and triage notes? @ -Yes, and I agree, it is accurate with regards to the patient's symptoms. Were old charts reviewed? @ -No Differential Diagnosis? @ -Differential Dysphagia: Esophageal food impaction, GERD, neurological issue, this not been to be on because of this. EKG interpreted by me (3pts min.)? @ -Not obtained X-rays interpreted by me (1pt min.)? @ -Chest x-ray obtained, my interpretation identifies no localized co nsolidations or infiltrates. X-ray of the soft tissue neck obtained. My interpretation identifies no subglottic narrowing. X-ray of the left hip obtained. My interpretation identifies a dislocation. CT interpreted by me (1pt min.)? @ -Not obtained U/S interpreted by me (1pt. min.)? @ -Not obtained What testing was considered but not performed? (CT, X-rays, U/S, labs)? Why? @ -None What meds were considered but not given? Why? @ -None Did you discuss the management of the patient with other professionals? @ -Yes, Dr. Bellamy GI at [facility], who is agreeable to transfer. Did you reconcile home meds? @ -No Was smoking cessation discussed for >3mins.? @ -No Was critical care preformed (if so, how long)? @ -No Were there social determinants of health that impacted care today? How? (Homelessness, low income, unemployed, alcoholism, drug addiction, transportation, low edu. Level, literacy, decrease access to med. care, correction, rehab)? @ -No Was there de-escalation of care discussed even if they declined? (Discuss DNR or withdrawal of care, Hospice)? @ -No What co-morbidities impacted this encounter? (DM, HTN, Smoking, COPD, CAD, Cancer, CVA, Hep., AIDS, mental health diagnosis, sleep apnea, morbid obesity)? @ -GERD Was patient admitted / discharged? @ -Transferred. On arrival patient was unable to swallow his saliva. He continued to spit up everything he tried to swallow. We did 2 rounds of glucagon with Valium and nitroglycerin and had the patient consume meena jefferson afterwards. Despite both attempts he was unable to dislodge suspected impaction and continued to regurgitate his saliva and anything else he swallowed. In the process of moving around in the bed, he ended up dislocating his left hip. States that this is the third time he has dealt with this. Conscious sedation was performed using propofol with ED attending Dr. Montague the hip was successf ully reduced. Knee immobilizer was applied. Patient was reevaluated after waking up from the propofol and was still unable to swallow even his own saliva. Patient subsequently transferred to [facility] as an ED to ED transfer for evaluation of suspected esophageal food impaction. Dr. Bellamy, GI, is the accepting provider. Dr. Her is the accepting ED provider. Undiagnosed new problem with uncertain prognosis? @ -None Drug Therapy requiring intensive monitoring for toxicity (Heparin, Nitro, Insulin, Cardizem)? @ -None Were any procedures done? @ -Conscious sedation using propofol and reduction of hip dislocation Diagnosis/symptom? @ -Esophageal food impaction, left hip dislocation Acute, or Chronic, or Acute on Chronic? @ -Acute Uncomplicated (without systemic symptoms) or Complicated (systemic symptoms)? @ -Uncomplicated Side effects of treatment? @ -None Exacerbation, Progression, or Severe Exacerbation] @ -Not applicable Poses a threat to life or bodily function? @ -Yes, can lead to respiratory compromise if the patient is unable to swallow his excretions and continues choking. - Radiology Data Radiology results: report reviewed, image reviewed Disposition Clinical Impression: Food impaction of esophagus, Hip dislocation, left Disposition: OTHER INSTITUTION NOT DEFINED Referrals: Den Simpson DO [Primary Care Provider] - 1-2 days - Out of Hospital Transfer - Req. Specs Out of Hospital Transfer - Requested Specifics: Other Emergency Center ([facility])
[2024-06-15] MEDS: ONDANSETRON 4 MG/2 ML VIAL IVP STA (19:57)
[2024-06-15] MEDS ORDERED: MAG HYDROX/AL HYDROX/SIMETH 30 ML, HYOSCYAMINE ELIXIR 10 ML, LIDOCAINE VISCOUS 2% 10 ML PO STA (20:19)
[2024-06-15] MEDS: HYDROmorphone 1 MG/ML 1 ML SYRINGE IVP STA (20:21)
[2024-06-15] MEDS: PROPOFOL 10 MG/ML 20 ML VIAL IV ONE (22:02)
--- NOTE | 2024-06-15 22:38 | XR ---
EXAMINATION TYPE: XR chest 2V DATE OF EXAM: 06/15/2024 8:44 PM CLINICAL INDICATION:Male, 53 years old with history of Dysphagia; [facility] COMPARISON: None TECHNIQUE: XR chest 2V. Frontal and lateral views of the chest.. FINDINGS: Heart size upper normal. Mediastinum does not appear widened. There are chronic senescent lung changes including linear opacities emanating from the hilar regions likely scarring with possible mild superimposed subsegmental atelectasis. No focal consolidation or m ass suggested. No pleural effusion or pneumothorax. Several remote left rib fracture deformities. No clearly acute osseous pathology. Degenerative change s of the shoulders and spine. IMPRESSION: No acute chest abnormality.
--- NOTE | 2024-06-15 22:58 | XR ---
EXAMINATION TYPE: XR soft tissue neck DATE OF EXAM: 06/15/2024 8:44 PM CLINICAL INDICATION:Male, 53 years old with history of Dysphagia; H COMPARISON: TECHNIQUE: The soft tissues of the neck were imaged in frontal and lateral views. FINDINGS: The prevertebral soft tissues are unremarkable. Normal epiglottis. There is no evidence of mass effect or tracheal deviation. No evidence of subglottic narrowing. No acute osseous abnormality demonstrated. Mild degenerative changes of the cervical spine. Patient is edentulous. IMPRESSION: No significant abnormality identified within the soft tissues of the neck.
--- NOTE | 2024-06-15 23:00 | XR ---
EXAMINATION TYPE: XR Hip Complete LT DATE OF EXAM: 06/15/2024 8:44 PM CLINICAL INDICATION:Male, 53 years old with history of Injury; [facility] COMPARISON: 04/26/2024 TECHNIQUE: The left hip was examined in the frontal and crosstable lateral projections. FINDINGS: Left total hip arthroplasty is present. There is posterior dislocation of the prosthetic f emoral head from the acetabular cup with some superior migration of the head. Hardware appears intact . No acute osseous fractures are seen. IMPRESSION: Left total hip arthroplasty, with posterior dislocation of the prosthetic femoral head from the aceta bular cup.
--- NOTE | 2024-06-15 23:08 | XR ---
EXAMINATION TYPE: XR Hip Limited LT DATE OF EXAM: 06/15/2024 9:57 PM CLINICAL INDICATION:Male, 53 years old with history of Postreduction; [facility] COMPARISON: Radiographs earlier today TECHNIQUE: Single portable frontal view of the left hip. FINDINGS: Previously dislocated hip prosthesis has been reduced, now appears in expected alignment. N o definite fractures are demonstrated. IMPRESSION: Postreduction of previously dislocated left hip prosthesis.
[2024-06-16 00:21] VITALS: BP 103/68; PULSE 45; RESP 14
== END 2024-06-16 00:05 | disposition other institution (70) ==
LOC: EC 19:05
CPT/HCPCS: 27266; 70360; 71046; 73501; 73502; 96374; 96375; 99285

== ENCOUNTER 2024-07-20 01:49 | Emergency (ER) | payer BC, MEDICARE ==
[2024-07-20 02:16] VITALS: TEMP 98.4
[2024-07-20] MEDS: MORPHINE SULFATE 4 MG/ML SYRINGE IVP STA (02:25)
[2024-07-20] MEDS: SODIUM CHLORIDE 0.9% 1,000 ML IV STA (02:26)
--- NOTE | 2024-07-20 02:29 | ED ---
General Adult HPI - General Chief complaint: Extremity Injury, Lower Stated complaint: Hip Dislocation Time Seen by Provider: 07/20/24 01:52 Source: patient Mode of arrival: EMS Limitations: no limitations - History of Present Illness Initial comments: Dictation was produced using [employer] dictation software. please excuse any grammatical, word or spelling errors. Chief Complaint: 54-year-old male presents to the emergency department left hip dislocation History of Present Illness: This 54-year-old male has history of prosthetic left hip. This is his third hip dislocation. Patient states he was in bed when he woke up secondary to left hip pain. Denies any numbness paresthesias to his left foot. The ROS documented in this emergency department record has been reviewed and confirmed by me. Those systems with pertinent positive or negative responses have been documented in the HPI. All other systems are other negative and/or noncontributory. - Related Data Home Medications Medication Instructions Recorded Confirmed Folic Acid 1 mg PO DAILY 05/20/18 01/01/24 Rifaximin [Xifaxan] 550 mg PO BID 11/21/19 01/01/24 Pregabalin [Lyrica] 200 mg PO TID 02/14/20 01/01/24 Buprenorphine HCl/Naloxone HCl 1 film SL TID 05/18/20 01/01/24 [Suboxone 8 mg-2 mg Sl Film] Sertraline [Zoloft] 100 mg PO BID 07/28/22 01/01/24 Cholecalciferol (Vitamin D3) 125 mcg PO DAILY 05/05/23 01/01/24 [Vitamin D3 (125 MCG = 5,000 IU)] Magnesium Oxide [Mag-Ox] 400 mg PO HS 05/05/23 01/01/24 metFORMIN HCL 500 mg PO BID 05/05/23 01/01/24 rOPINIRole HCL [Requip] 2 mg PO HS 05/05/23 01/01/24 traZODone HCL 100 mg PO HS 05/05/23 01/01/24 Mv-Min/Folic/K1/Lycopen/Lutein 1 tab PO DAILY 01/01/24 01/01/24 [Centrum Silver Men Tablet] Previous Rx's Medication Instructions Recorded Thiamine [Vitamin B-1] 100 mg PO DAILY #30 tab 11/06/16 Omeprazole [PriLOSEC] 40 mg PO BID #60 cap 03/19/20 Ferrous Sulfate [Iron (65 MG 325 mg PO DAILY #60 tab 01/05/24 Elemental)] Allergies Allergy/AdvReac Type Severity Reaction Status Date / Time No Known Allergies Allergy Verified 07/20/24 01:58 Review of Systems ROS Statement: Those systems with pertinent positive or pertinent negative responses have been documented in the HPI. ROS Other: All systems not noted in ROS Statement are negative. Past Medical History Past Medical History: Diabetes Mellitus, GERD/Reflux, GI Bleed, Liver Disease, Pneumonia, Skin Disorder Additional Past Medical History / Comment(s): Past ETOH abuse-has not drank since 2015, alcoholic liver cirrhosis/portal htn, hepatic encephalopathy, ascites with numerous paracentesis, AMS/high amylase/vented, pancreatitis, upper GI bleed, gastric antral vascular ectasia, pancytopenia r/t cirrhosis, chronic anemia, hiatal hernia, neuropathy bilateral legs/feet and had past sores bilateral feet, chronic back pain. History of Any Multi-Drug Resistant Organisms: None Reported Past Surgical History: Orthopedic Surgery Additional Past Surgical History / Comment(s): Open heart surgery to remove glass from heart (fell into glass on a door), low back surgery, R inguinal hernia repair, EGD, I&D L foot wound. toal hip 2022, hip closed reduction 12/12/23 Past Anesthesia/Blood Transfusion Reactions: No Reported Reaction Past Psychological History: Depression Smoking Status: Former smoker, Vaper Past Alcohol Use History: None Reported Past Drug Use History: Marijuana - Past Family History Father History Unknown: Yes Family Medical History: Dementia Additional Family Medical History / Comment(s): Father is living. Mother Family Medical History: Diabetes Mellitus Additional Family Medical History / Comment(s): Mother is . General Exam - General Exam Comments Initial Comments: General: Well-appearing, nontoxic, no acute distress. Head: Normocephalic, atraumatic Eyes: PERRLA, EOMI ENT: Airway patent Chest: Nonlabored breathing Skin: No visual rash, normal skin tone Neuro: Alert and oriented 3 Musculoskeletal: No gross abnormalities Left lower extremity: Shortened lower extremity with palpatory pain at the left hip Limitations: no limitations Course Vital Signs 07/20/24 01:52 Temperature 98.4 F Pulse Rate 67 Respiratory 18 Rate Blood Pressure 120/69 O2 Sat by Pulse 94 L Oximetry Procedures - Orthopedic Joint Reduction Joint #1 Consent Obtained: verbal consent, written consent, emergent situation Side: left Joint Reduction Location: hip Analgesia: procedural sedation Technique Used: traction/counter-traction Post-Reduction Neuro Exam: intact Post-Reduction Vascular Exam: intact Post Reduction X-Ray Obtained: Yes Post Reduction X-Ray Results: reduced Splint Applied: No Patient Tolerated Procedure: well - Procedural Sedation *Procedural Sedation Start Time: 02:48 *Procedural Sedation Stop Time: 02:51 *Risks,benefits, and alternative therapies discussed?: Yes *Patient indicates understanding of risk/benefit discussion?: Yes *Indications: fracture/dislocation reduction *Previous Adverse Reaction to Anesthesia/Sedation?: No *ASA Class: II *Mallampati Airway Score: 1 Preparation: cardiac surgeon applied, pulse oximeter, capnometry used, supplemental O2 applied, suction/airway equipment at bedside IV Propofol Dose (mgs): 125 Complications: none Patient Tolerated Procedure: well Medical Decision Making - Medical Decision Making Was pt. sent in by a medical professional or institution (, PA, ACID REMOVER, urgent care, hospital, or [facility]...) When possible be specific @ -No Did you speak to anyone other than the patient for history (EMS, parent, family, police, friend...)? What history was obtained from this source @ -No Did you review nursing and triage notes (agree or disagree)? Why? @ -I reviewed and agree with nursing and triage notes Were old charts reviewed (outside hosp., previous admission, EMS record, old EKG, old radiological studies, urgent care reports/EKG's, [facility] records)? Report findings @ -No old charts were reviewed Differential Diagnosis (chest pain, altered mental status, abdominal pain women, abdominal pain men, vaginal bleeding, musculoskeletal, weakness, fever, dyspnea, syncope, headache, dizziness, GI bleed, back pain, seizure, CVA, palpatations, mental health)? @ -Hip fracture, hip dislocation, hip strain EKG interpreted by me (3pts min.). @ -None done X-rays interpreted by me (1pt min.). @ -Left hip x-ray shows prosthetic left hip dislocation CT interpreted by me (1pt min.). @ -None done U/S interpreted by me (1pt. min.). @ -None done What testing was considered but not performed or refused? (CT, X-rays, U/S, labs)? Why? @ -None What meds were considered but not given or refused? Why? @ -None Was smoking cessation discussed for >3mins.? @ -No Were there social determinants of health that impacted care today? How? (Homelessness, low income, unemployed, alcoholism, drug addiction, transportation, low edu. Level, literacy, decrease access to med. care, care home, rehab)? @ -No Was there de-escalation of care discussed even if they declined (Discuss DNR or withdrawal of care, Hospice)? DNR status @ -No What co-morbidities impacted this encounter? (DM, HTN, Smoking, COPD, CAD, Cancer, CVA, ARF, Chemo, Hep., AIDS, mental health diagnosis, sleep apnea, morbid obesity)? @ -None Was patient admitted / discharged? Hospital course, mention meds given and route, prescriptions, significant lab abnormalities, going to OR and other pertinent info. @ -54-year-old male with prosthetic left hip dislocation. Vital signs stable. X-ray showed superior left hip dislocation. Procedural sedation performed with reduction of left hip dislocation. Patient observed emergency department for procedural sedation found to be stable medical addition. Patient discharged vies follow-up with orthopedic surgery Did you discuss the management of the patient with other professionals (professionals i.e. , PA, ACID REMOVER, lab, RT, psych nurse, addiction social worker, occupational medicine officer, teacher, field artillery officer, porter sample case)? Give summary @ -No Was critical care preformed (if so, how long)? @ -No Undiagnosed new problem with uncertain prognosis? @ -No Drug Therapy requiring intensive monitoring for toxicity (Heparin, Nitro, Insulin, Cardizem)? @ -No Were any procedures done? @ -As above Diagnosis/symptom? Acute, or Chronic, or Acute on Chronic? Uncomplicated (w ithout systemic symptoms) or Complicated (systemic symptoms)? @ -Prosthetic hip dislocation Side effects of treatment? @ -No Exacerbation, Progression, or Severe Exacerbation? @ -No Poses a threat to life or bodily function? How? (Chest pain, [place], [place], pneumonia, PE, COPD, DKA, ARF, appy, cholecystitis, CVA, Diverticulitis, Homicidal, Suicidal, threat to staff... and all critical care pts) @ -yes Disposition Clinical Impression: Hip dislocation, left Disposition: HOME SELF-CARE Condition: Good Instructions (If sedation given, give patient instructions): Hip Dislocation (ED) Is patient prescribed a controlled substance at d/c from ED?: No Referrals: Malcolm Jimenes DO [Doctor of Osteopathic Medicine] - 1-2 days Time of Disposition: 02:56
[2024-07-20] MEDS: PROPOFOL 10 MG/ML 20 ML VIAL IV ONE (02:48)
[2024-07-20 03:45] VITALS: RESP 16
--- NOTE | 2024-07-20 04:41 | XR ---
EXAM: XR Left Hip With Pelvis When Performed, 1 View CLINICAL HISTORY: ITS.REASON XR Reason: reduction TECHNIQUE: Frontal view of the left hip with pelvis when performed. COMPARISON: Earlier same day. FINDINGS: Bones/joints: LEFT hip arthroplasty. No periprosthetic fracture. No dislocation. Soft tissues: Unremarkable. IMPRESSION: Anatomic alignment.
--- NOTE | 2024-07-20 04:50 | XR ---
EXAMINATION TYPE: XR Hip Complete LT DATE OF EXAM: 07/20/2024 CLINICAL HISTORY: Hip pain. Left hip dislocation. TECHNIQUE: AP and frogleg views of the left hip are obtained. COMPARISON: Left hip x-ray June 15, 2024. FINDINGS: There is recurrent left hip prosthesis dislocation. No acute fracture. IMPRESSION: As above. [facility], Workstation: [id number], 07/20/2024 4:48 AM
[2024-07-20 05:05] VITALS: BP 111/70; PULSE 52
== END 2024-07-20 05:05 | disposition home or self-care (01) ==
LOC: EC 01:49
CPT/HCPCS: 73501; 73502; 96374; 99284

== ENCOUNTER → 2024-07-22 | Outpatient (CLI) | payer BC, MEDICARE ==
[2024-07-22 15:09] LABS: Basophils # (A) 0.02 X 10*3/uL (0.00-0.10); Basophils % (A) 0.5 %; Eosinophils # (A) 0.05 X 10*3/uL (0.04-0.35); Eosinophils % (A) 1.3 %; HCT 34.8 % (39.6-50.0); HGB 11.1 g/dL (13.0-17.0); Lymphocytes # (A) 0.86 X 10*3/uL (0.90-5.00); Lymphocytes % (A) 21.5 %; MCH 27.3 pg (27.0-32.0); MCHC 31.9 g/dL (32.0-37.0); MCV 85.5 FL (80.0-97.0); Mean Platelet Volume 11.5 FL (9.5-12.2); Monocytes % (A) 7.5 %; NRBC Per 100 WBC 0 X 10*3/uL (0.00-0.01); Neutrophils # (A) 2.76 X 10*3/uL (1.80-7.70); Neutrophils % (A) 68.9 %; Platelet Count 131 X 10*3/uL (140-440); RBC 4.07 X 10*6/uL (4.40-5.60)
[2024-07-22 15:43] LABS: INR 0.99 sec (0.93-1.11); Prothrombin Time 10.7 sec (9.9-11.9)
[2024-07-22 16:33] LABS: ALT 21 U/L (10-49); AST 27 U/L (14-35); Albumin 4.5 g/dL (3.8-4.9); Albumin/Globulin Ratio 1.61 Ratio (1.60-3.17); Alkaline Phosphatase 92 U/L (41-126); Bilirubin, Conjugated <0.20 mg/dL (0.20-0.40); Bilirubin,Unconjugated >0 mg/dL (0.20-1.00); Globulin 2.8 g/dL (1.6-3.3); Total Bilirubin 0.2 mg/dL (0.3-1.2); Total Protein 7.3 g/dL (6.2-8.2)
== END | disposition home or self-care (01) ==
LOC: LABWHC1 11:44
PROVIDERS: ATTEND Physician Assistant
DX: K70.30 Alcoholic cirrhosis of liver without ascites (principal)
CPT/HCPCS: 36415; 80076; 82105; 85025; 85610

== ENCOUNTER 2024-08-06 02:56 | Emergency (ER) | payer BC, MEDICARE ==
[2024-08-06 03:06] VITALS: TEMP 99
--- NOTE | 2024-08-06 04:23 | ED ---
Extremity Problem HPI - General Chief complaint: Extremity Problem,Nontraumatic Stated complaint: L Hip Pain Time Seen by Provider: 08/06/24 03:14 Source: EMS Mode of arrival: EMS - History of Present Illness Initial comments: Patient is a 54-year-old male past medical history osteoarthritis, diabetes, hypertension, left hip presenting today for left hip pain. Patient has a his tory of multiple left hip dislocations, nontraumatic. He was laying in bed tonight" felt his left hip "fall". States felt like prior dislocations. Thinks it happened because he kicks his feet at night. Was last here approximately 3 weeks ago for similar. States he has chronic neuropathy in his feet but denies new numbness. No swelling or new injury. - Related Data Home Medications Medication Instructions Recorded Confirmed Folic Acid 1 mg PO DAILY 05/20/18 01/01/24 Rifaximin [Xifaxan] 550 mg PO BID 11/21/19 01/01/24 Pregabalin [Lyrica] 200 mg PO TID 02/14/20 01/01/24 Buprenorphine HCl/Naloxone HCl 1 film SL TID 05/18/20 01/01/24 [Suboxone 8 mg-2 mg Sl Film] Sertraline [Zoloft] 100 mg PO BID 07/28/22 01/01/24 Cholecalciferol (Vitamin D3) 125 mcg PO DAILY 05/05/23 01/01/24 [Vitamin D3 (125 MCG = 5,000 IU)] Magnesium Oxide [Mag-Ox] 400 mg PO HS 05/05/23 01/01/24 metFORMIN HCL 500 mg PO BID 05/05/23 01/01/24 rOPINIRole HCL [Requip] 2 mg PO HS 05/05/23 01/01/24 traZODone HCL 100 mg PO HS 05/05/23 01/01/24 Mv-Min/Folic/K1/Lycopen/Lutein 1 tab PO DAILY 01/01/24 01/01/24 [Centrum Silver Men Tablet] Previous Rx's Medication Instructions Recorded Thiamine [Vitamin B-1] 100 mg PO DAILY #30 tab 11/06/16 Omeprazole [PriLOSEC] 40 mg PO BID #60 cap 03/19/20 Ferrous Sulfate [Iron (65 MG 325 mg PO DAILY #60 tab 01/05/24 Elemental)] Allergies Allergy/AdvReac Type Severity Reaction Status Date / Time No Known Allergies Allergy Verified 08/06/24 03:06 Review of Systems ROS Statement: Those systems with pertinent positive or pertinent negative responses have been documented in the HPI. ROS Other: All systems not noted in ROS Statement are negative. Past Medical History Past Medical History: Diabetes Mellitus, GERD/Reflux, GI Bleed, Liver Disease, Pneumonia, Skin Disorder Additional Past Medical History / Comment(s): Past ETOH abuse-has not drank since 2016, alcoholic liver cirrhosis/portal htn, hepatic encephalopathy, ascites with numerous paracentesis, AMS/high amylase/vented, pancreatitis, upper GI bleed, gastric antral vascular ectasia, pancytopenia r/t cirrhosis, chronic anemia, hiatal hernia, neuropathy bilateral legs/feet and had past sores bilateral feet, chronic back pain. History of Any Multi-Drug Resistant Organisms: None Reported Past Surgical History: Orthopedic Surgery Additional Past Surgical History / Comment(s): Open heart surgery to remove glass from heart (fell into glass on a door), low back surgery, R inguinal hernia repair, EGD, I&D L foot wound. toal hip 07 2022, hip closed reduction 12/12/23 Past Anesthesia/Blood Transfusion Reactions: No Reported Reaction Past Psychological History: Depression Smoking Status: Former smoker, Vaper Past Alcohol Use History: None Reported Past Drug Use History: Marijuana - Past Family History Father History Unknown: Yes Family Medical History: Dementia Additional Family Medical History / Comment(s): Father is living. Mother Family Medical History: Diabetes Mellitus Additional Family Medical History / Comment(s): Mother is . General Exam - General Exam Comments Initial Comments: PE: CONSTITUTIONAL: No apparent distress, well appearing SKIN: Warm, dry, no jaundice, hives or petechiae, no bruising or abrasions EYES: Pupils are equally round, extraocular movements intact without nystagmus, clear conjunctiva, non-icteric sclera HENT: Normocephalic, atraumatic, moist mucus membranes, oropharynx clear without exudates NECK: , Full range of motion, normal appearance PULMONARY: Clear to auscultation without wheezes, rhonchi, or rales, normal excursion, no accessory muscle use and no stridor CARDIOVASCULAR: Regular rate, rhythm, normal S1 and S2. No appreciated murmurs, rubs or gallops. Strong radial pulses with intact distal perfusion. No lower extremity edema. 2+ DP pulse palpated in LLE MUSCULOSKELETAL: Left hip TTP, displaced laterally, LLE shortened and internally rotated, neurovascularly intact, otherwise other Extremities have no gross deformity, no edema, redness, or swelling. No calf swelling NEUROLOGIC:_a/o x 3, GCS 15, normal mentation and speech. Moves all extremities x 4 without motor or sensory deficit PSYCHIATRIC:_normal mood and affect, thought process is clear and linear Course Vital Signs 08/06/24 08/06/24 08/06/24 02:59 04:11 04:15 Temperature 99.0 F Pulse Rate 62 65 58 L Respiratory 18 16 17 Rate Blood Pressure 124/85 133/79 115/70 O2 Sat by Pulse 96 99 98 Oximetry 08/06/24 08/06/24 08/06/24 04:19 04:20 04:35 Temperature Pulse Rate 55 L 53 L 52 L Respiratory 15 16 18 Rate Blood Pressure 91/58 92/59 106/63 O2 Sat by Pulse 98 97 100 Oximetry 08/06/24 08/06/24 08/06/24 04:50 05:11 05:20 Temperature Pulse Rate 51 L 47 L 50 L Respiratory 18 18 18 Rate Blood Pressure 104/75 100/67 99/57 O2 Sat by Pulse 94 L 98 96 Oximetry 08/06/24 06:33 Temperature Pulse Rate 60 Respiratory 18 Rate Blood Pressure 99/65 O2 Sat by Pulse 94 L Oximetry Procedures - Pitcher Protocol (Time Out) Procedure Performed:: Sedation and hip reduction Performing Provider: Susi Leung Nurse: Nick Lyons Respiratory Therapist: Robert Aly Patient Identification (2 identifiers required): Verbal, Arm Band, Name Patient/Legal Satellite Instruction Facilitator has Confirmed: Identity, Site Final Confirmation: Procedure, Site, Laterality, Radiographs, Special Equipment, Confirmed w/Provider - Orthopedic Joint Reduction Joint #1 Consent Obtained: verbal consent Side: left Joint Reduction Location: hip Analgesia: procedural sedation Shoulder Technique Used (if applicable): traction/counter-traction Technique Used: traction/counter-traction Post-Reduction Neuro Exam: intact Post-Reduction Vascular Exam: intact Post Reduction X-Ray Obtained: Yes Post Reduction X-Ray Results: reduced Splint Applied: No Patient Tolerated Procedure: well - Procedural Sedation *Procedural Sedation Start Time: 04:10 *Procedural Sedation Stop Time: 04:20 *Risks,benefits, and alternative therapies discussed?: Yes *Patient indicates understanding of risk/benefit discussion?: Yes *Indications: fracture/dislocation reduction *Previous Adverse Reaction to Anesthesia/Sedation?: No *ASA Class: I *Mallampati Airway Score: 1 Preparation: personnel monitor applied, pulse oximeter, capnometry used, supplemental O2 applied, reversal agents at bedside, suction/airway equipment at bedside IV Propofol Dose (mgs): 130 Complications: none Patient Tolerated Procedure: well Medical Decision Making - Medical Decision Making Was pt. sent in by a medical professional or institution (, PA, TAPPER SUPERVISOR, urgent care, hospital, or penitentiary...) When possible be specific @ -[No] Did you speak to anyone other than the patient for history (EMS, parent, family, police, friend...)? What history was obtained from this source @ -[No] Did you review nursing and triage notes (agree or disagree)? Why? @ -[I reviewed and agree with nursing and triage notes] Were old charts reviewed (outside hosp., previous admission, EMS record, old EKG, old radiological studies, urgent care reports/EKG's, penitentiary records)? Report findings @ -Medical records reviewed- pt last in ED on 07/20/2024 for similar complaint, resulted in left hip dislocation, was reduced with satisfactory alignment. Propofol was used for sedation. Reviewed x-rays performed at that time that initially showed left hip dislocation and subsequent reduction. Differential Diagnosis (chest pain, altered mental status, abdominal pain women, abdominal pain men, vaginal bleeding, weakness, fever, dyspnea, syncope, headache, dizziness, GI bleed, back pain, seizure, CVA, palpatations, mental health, musculoskeletal)? @Differential diagnosis veins bilateral top considerations include left hip dislocation, fracture, contusion, arthritis, bursitis, this is not an all- inclusive list EKG interpreted by me (3pts min.). @ -[As above] X-rays interpreted by me (1pt min.). @X-ray #1-left hip dislocation no fracture; X-ray #2-left hip reduction, no evidence of fracture CT interpreted by me (1pt min.). @ -[None done] U/S interpreted by me (1pt. min.). @ -[None done] What testing was considered but not performed or refused? (CT, X-rays, U/S, labs)? Why? @ -[None] What meds were considered but not given or refused? Why? @ -[None] Did you discuss the management of the patient with other professionals (professionals i.e. , PA, TAPPER SUPERVISOR, lab, RT, psych nurse, psychiatric social worker supervisor, financial foundations associate, teacher, digital marketing officer, housing case manager)? Give summary @ -[No] Was smoking cessation discussed for >3mins.? @ -[No] Was critical care preformed (if so, how long)? @ -[No] Were there social determinants of health that impacted care today? How? (Homelessness, low income, unemployed, alcoholism, drug addiction, transportation, low edu. Level, literacy, decrease access to med. care, custodial, rehab)? @ -[No] Was there de-escalation of care discussed even if they declined (Discuss DNR or withdrawal of care, Hospice)? @ -[No] What co-morbidities impacted this encounter? (DM, HTN, Smoking, COPD, CAD, Cancer, CVA, ARF, Chemo, Hep., AIDS, mental health diagnosis, sleep apnea, morbid obesity)? @ -[None] Was patient admitted / discharged? Hospital course, mention meds given and route, prescriptions, significant lab abnormalities, going to OR and other pertinent info. @ -[hospital course] discharged- Patient is a pleasant 54-year-old male past medical history recurrent left hip dislocations, nonnative left hip presenting for atraumatic left hip pain that patient states feels like prior hip dislocations. On my reassessment patient is well-appearing and in no acute distress of painful appearing. Left hip appears laterally displaced and left lower extremity appears internally rotated and shortened. Patient does have distal neuropathy in the bilateral distal lower extremities but 2+ dorsalis pedis pulse palpated, lower extremity is neurovascularly intact. Discussed with patient plan for x-ray and likely hip reduction. Patient is agreeable plan of care. X-ray shows dislocated left hip without fracture. Discussed with patient plan for sedation with propofol and reduction. Please see procedure note for further details. Informed consent was obtained. Left hip was reduced without complication. Confirmed with x-ray. Postreduction exam shows 2+ DP pulse in left lower extremity, sensation intact, neurovascular intact. On my reassessment patient is awake and alert status post procedural sedation. States pain is resolved. No new numbness in the affected extremity. Is ready for discharge home. Patient to follow-up with his orthopedist regarding recurrent optic dislocations. In my medical judgment there is currently no evidence of an immediate life- threatening or surgical condition. Discharge is therefore indicated at this time. [Discharge treatment instructions, follow up instructions, and appropriate emergency department return precautions were discussed with the patient and/or medical decision maker. Patient and/or medical decision maker expressed understanding of and agreed with the treatment plan, follow up instructions, and emergency department return precaution. All patient's and/or medical decision maker's questions were answered.] Undiagnosed new problem with uncertain prognosis? @ -[No] Drug Therapy requiring intensive monitoring for toxicity (Heparin, Nitro, Insulin, Cardizem)? @ -[No] Were any procedures done? @Yes, joint reduction, sedation Diagnosis/symptom? @ -Atraumatic left hip dislocation Acute, or Chronic, or Acute on Chronic? @Acute Uncomplicated (without systemic symptoms) or Complicated (systemic symptoms)? @Uncomplicated Side effects of treatment? @ -[No] Exacerbation, Progression, or Severe Exacerbation? @ -[No] Poses a threat to life or bodily function? How? (Chest pain, [place], [place], pneumonia, PE, COPD, DKA, ARF, appy, cholecystitis, CVA, Diverticulitis, Homicidal, Suicidal, threat to staff... and all critical care pts) @Yes, prior to treatment left hip low so patient does pose risk to bodily function and if left untreated could cause chronic and permanent joint damage and disability. Postreduction, no. Disposition Clinical Impression: Hip dislocation, left Disposition: HOME SELF-CARE Condition: Good Instructions (If sedation given, give patient instructions): Moderate Sedation (ED) Additional Instructions: Every disease is a spectrum and a small chance still exists that a serious condition could develop, for this reason, please monitor yourself closely for new, changing or worsening symptoms, new or severe pain, pain that you cannot control at home, new numbness newly, swelling in your leg, redislocation, fever, inability to tolerate/keep down fluids or your medications, inability to follow up with outpatient providers as instructed and should you experience these symptoms or should you have any further concerns for your wellbeing please return to the ED or call 911 immediately. Please call your orthopedic surgeon on Thursday to schedule follow up appointment to discuss recurrent hip dislocations. PLEASE call your primary care physician as soon as possible to arrange / discuss plan for followup appointment. Appointment in the next 1-3 days is strongly encouraged if possible. PLEASE let us know here before you leave if there is anything further we can do to be of any assistance. Take care and feel Better! Is patient prescribed a controlled substance at d/c from ED?: No Referrals: Alexander Randhawa MD [Primary Care Provider] - 1-2 days
[2024-08-06 04:41] VITALS: RESP 18
[2024-08-06] MEDS: PROPOFOL 10 MG/ML 20 ML VIAL IV ONE (04:43)
[2024-08-06 06:45] VITALS: BP 99/65; PULSE 60
--- NOTE | 2024-08-06 07:08 | XR ---
EXAMINATION TYPE: XR Hip Complete LT DATE OF EXAM: 08/06/2024 3:41 AM CLINICAL INDICATION: Male, 54 years old with history of concern for hip dislocation; [facility] COMPARISON: None. TECHNIQUE: XR Hip Complete LT; hip was examined in the frontal and lateral projections and a AP pelvi s. 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 No evidence of fracture. [facility], , 08/06/2024 7:05 AM
--- NOTE | 2024-08-06 07:09 | XR ---
EXAMINATION TYPE: XR Hip Limited LT DATE OF EXAM: 08/06/2024 4:27 AM CLINICAL INDICATION: Male, 54 years old with history of post reduction; [facility] COMPARISON: Same day. TECHNIQUE: XR Hip Limited LT; hip was examined in the frontal and lateral projections and a AP pelvis . FINDINGS: No evidence for acute process, joint dislocation or significant soft tissue swelling. IMPRESSION: Interval relocation of the left hip total arthroplasty. No evidence of fracture. [facility], , 08/06/2024 7:07 AM
== END 2024-08-06 06:51 | disposition home or self-care (01) ==
LOC: EC 02:56
CPT/HCPCS: 27265; 73501; 73502; 99152; 99284

== ENCOUNTER → 2024-10-07 | Outpatient (CLI) | payer BC ==
--- NOTE | 2024-10-07 12:57 | US ---
EXAMINATION TYPE: US abdomen limited DATE OF EXAM: 10/07/2024 COMPARISON: 08/31/23 CLINICAL INDICATION: Male, 54 years old with history of K70.30 ALCOHOLIC CIRRHOSIS; TECHNIQUE: Grayscale and color Doppler imaging of the right upper quadrant was performed. FINDINGS: EXAM MEASUREMENTS: Liver Length: 16.8 cm Gallbladder Wall: Surgically absent CBD: 1.2 cm Right Kidney: 9.1 x 5.4 x 4.7 cm OBSTETRICS SPECIALIST NOTES: Pancreas: Obscured by bowel gas Liver: heterogeneous , no dilated ducts, masses or cysts., Contour is relatively smooth at this lynne e. Gallbladder: Surgically absent Evidence for sonographic Corral's sign: No CBD: upper limits of normal, post cholecystectomy Right Kidney: wnl IMPRESSION: Heterogenous echotexture to liver correlate with serum markers for. The contour is relatively smooth at this time. [facility], , 10/07/2024 12:54 PM
== END | disposition home or self-care (01) ==
LOC: RADUSWWP 07:32
PROVIDERS: ATTEND Internal Medicine Gastroenterology
DX: K70.30 Alcoholic cirrhosis of liver without ascites (principal)
CPT/HCPCS: 76705